=== PATIENT | female | born 1935 | race Caucasian/White ===

== ENCOUNTER 2016-05-14 07:40 | Inpatient (IN) | payer OTHER, BC ==
[~2016-05-14] VITALS: Ht 162.6 cm; Wt 72.8 kg
[~2016-05-14 07:40] MED LIST: COEN1CAP28 PO; FERR1TAB62 PO; HALO1TAB PO; HLD1 PO; LPR25 PO; MTR500 PO
--- NOTE | 2016-05-14 08:10 | EMERGENCY ROOM VISIT NOTE ---
History Report prepared by Savita: Velvet Hurst Under the Supervision of: Dr. Vern Naik M.D. First contact with patient: 07:43 Stated Complaint: CONFUSION History of Present Illness The patient is a 80 year old female who presents to the Emergency Room with complaints of persistent, worsening confusion that began prior to arrival. Per the patient's daughter the patient has a history of dementia. She notes that the patient was evaluated in the emergency department one month ago which revealed a bladder stone that is 2 inches in size. The patient's daughter notes that the patient had a scope that revealed that her uterus is dropped. She states that the patient is scheduled to have the stone blasted on the 04 of June, because urology believes that the stone is the likely cause of her persistent UTIs. The patient's daughter notes that the patient is increasingly weak and confused today. She states that last evening the patient fell. The patient's daughter notes that the patient is on aspirin for a valve replacement and additionally notes a history of cancer. Source of History: patient, family (daughter) Onset: prior to arrival Position: other (global) Quality: other (confusion) Timing: worsening, other (persistent) Associated Symptoms: + weakness Review of Systems See HPI for pertinent positives & negatives. A total of 10 systems reviewed and were otherwise negative. Past Medical & Surgical Medical Problems: (1) Anxiety (2) Aortic stenosis (3) blood clots (4) Confusion (5) CVA (6) Depressive disorder, not elsewhere classified (7) Diabetes (8) Heart disease (9) History of - tubal ligation (10) Hypertension (11) Kidney stone (12) stomach problems (13) Stroke (14) Thumb laceration (15) Weakness Surgical Problems: (1) H/O: hysterectomy Family History Diabetes mellitus FH: heart disease Hypertension Social History Smoking Status: Never Smoker Alcohol Use: none Marital Status: Housing Status: lives with family Occupation Status: retired Current/Historical Medications Scheduled Aspirin (Aspirin Ec), 81 MG PO QAM Atorvastatin (Lipitor), 10 MG PO QPM Cholecalciferol (Vitamin D), 1 TAB PO QAM Coenzyme Q10 (Ubidecarenone) (Co Q10), 1 CAP PO QAM Ferrous Sulfate (Ferrous Sulfate), 325 MG PO DAILY Haloperidol (Haloperidol), 1 MG PO QAM Haloperidol (Haloperidol), 0.5 MG PO HS Haloperidol (Haloperidol), 0.25 MG PO UD Magnesium Oxide (Mag-Ox), 400 MG PO QPM Metoprolol Tartrate (Lopressor), 25 MG PO BID Metronidazole (Metronidazole), 500 MG PO TID Miscellaneous Medications Nystatin (Topical) (Nystatin) Allergies Coded Allergies: Enalapril (Unverified Allergy, Unknown, Unknown, 05/14/16) Escitalopram (Unverified Adverse Reaction, Unknown, Hallucinations, ) Physical Exam Vital Signs Date Time Temp Pulse Resp B/P Pulse Ox O2 Delivery O2 Flow Rate FiO2 05/14/16 09:20 93 Room Air 05/14/16 09:05 85 18 146/96 93 Room Air 05/14/16 07:45 95 Room Air 05/14/16 07:45 36.6 93 20 150/74 95 Room Air Physical Exam GENERAL: Patient is mumbling about her shoes, does follow commands. HEAD: Normocephalic atraumatic EYES: Ocular movements intact pupils equal and react to light OROPHARYNX mucous membranes are moist no exudates present no erythema or edema present NECK: Supple no nuchal rigidity CHEST: Good equal expansion LUNGS: Clear and equal to auscultation CARDIAC: Grade 2/6 systolic murmur. ABDOMEN: Soft nontender no guarding BACK: No CVA tenderness EXTREMITIES: No pain upon palpation normal muscle strength in all groups no clubbing cyanosis or edema NEURO: Patient is following commands is answering questions appropriately. Alert and oriented x3 Cranial Nerves 2-12 grossly intact Medical Decision & Procedures ER Provider Diagnostic Interpretation: X-ray results as stated below per my interpretation and radiologist interpretation. Other radiology results as stated below per my review and radiologist interpretation: CT SCAN OF THE BRAIN WITHOUT IV CONTRAST CLINICAL HISTORY: Change in mental status. COMPARISON STUDY: CT of the brain dated 04/20/2016. TECHNIQUE: Unenhanced axial CT scan of the brain is performed from the vertex to the skull base. CT DOSE: 537.48 mGy.cm FINDINGS: Brain parenchyma: There are age-related involutional changes noting moderate subcortical and periventricular microangiopathic change. There is a large focus of right temporooccipital encephalomalacia, as well as smaller foci of left temporal and high right parietal encephalomalacia consistent with remote infarcts. A chronic infarct is noted in the right thalamus. There is no hemorrhage, mass effect, or evidence of acute territorial ischemia by CT criteria. Huynh-white matter is preserved. No extra-axial fluid collection is seen. Ventricles, sulci, cisterns: Prominent secondary to involutional change. Intracranial vasculature: There is atherosclerotic calcification of the cavernous carotid and vertebral arteries. Calvarium: Unremarkable. Sinuses and mastoids: There is trace mucosal thickening in the left maxillary antrum. The remaining visualized paranasal sinuses are clear. The mastoid air cells are well pneumatized. Orbits: The bony orbits are grossly intact. There are bilateral ocular lens implants. IMPRESSION: 1. There is no hemorrhage, mass effect, or evidence of acute territorial ischemia by CT criteria. 2. Senescent changes and remote infarcts as above, similar in appearance to the 04/20/2016 examination. Electronically signed by: Bladimir Green M.D. 05/14/2016 8:28 AM CHEST ONE VIEW PORTABLE HISTORY: Generalized weakness. COMPARISON: Chest 04/20/2016. FINDINGS: There are poststernotomy changes and a cardiac valve prosthesis. There are low lung volumes. The heart remains mildly enlarged. No new focal lung consolidations. No evidence for pulmonary edema. No pleural effusions. No pneumothorax. Bilateral hilar prominence persists. IMPRESSION: No significant change compared to the prior study. No acute process. Stable cardiomegaly. Electronically signed by: Madan Ortiz M.D. 05/14/2016 8:10 AM Laboratory Results 05/14/16 08:11 Red Blood Count 4.62, Mean Corpuscular Volume 87.9, Mean Corpuscular Hemoglobin 28.8, Mean Corpuscular Hemoglobin Concent 32.8, Mean Platelet Volume 10.4, Neutrophils (%) (Auto) 70.3, Lymphocytes (%) (Auto) 20.6, Monocytes (%) (Auto) 7.6, Eosinophils (%) (Auto) 1.0, Basophils (%) (Auto) 0.3, Neutrophils # (Auto) 4.07, Lymphocytes # (Auto) 1.19, Monocytes # (Auto) 0.44, Eosinophils # (Auto) 0.06, Basophils # (Auto) 0.02 05/14/16 08:11 Test 05/14/16 07:55 05/14/16 08:10 05/14/16 08:11 05/14/16 08:17 Urine Color DK YELLOW Urine Appearance CLEAR (CLEAR) Urine pH 5.5 (4.5-7.5) Urine Specific [place] 1.023 (1.000-1.030) Urine Protein TRACE (NEG) Urine Glucose (UA) NEG (NEG) Urine Ketones NEG (NEG) Urine Occult Blood NEG (NEG) Urine Nitrite NEG (NEG) Urine Bilirubin NEG (NEG) Urine Urobilinogen NEG (NEG) Urine Leukocyte Esterase NEG (NEG) Urine WBC (Auto) 0 /hpf (0-5) Urine RBC (Auto) 0-4 /hpf (0-4) Urine Hyaline Casts (Auto) 0 /lpf (0-5) Urine Epithelial Cells (Auto) 20-30 /lpf (0-5) Urine Bacteria (Auto) NEG (NEG) Bedside Glucose 181 mg/dl (70-90) White Blood Count 5.79 K/uL (4.8-10.8) Red Blood Count 4.62 M/uL (4.2-5.4) Hemoglobin 13.3 g/dL (12.0-16.0) Hematocrit 40.6 % (37-47) Mean Corpuscular Volume 87.9 fL (80-100) Mean Corpuscular Hemoglobin 28.8 pg (25-34) Mean Corpuscular Hemoglobin Concent 32.8 g/dl (32-36) Platelet Count 130 K/uL (130-400) Mean Platelet Volume 10.4 fL (7.4-10.4) Neutrophils (%) (Auto) 70.3 % Lymphocytes (%) (Auto) 20.6 % Monocytes (%) (Auto) 7.6 % Eosinophils (%) (Auto) 1.0 % Basophils (%) (Auto) 0.3 % Neutrophils # (Auto) 4.07 K/uL (1.4-6.5) Lymphocytes # (Auto) 1.19 K/uL (1.2-3.4) Monocytes # (Auto) 0.44 K/uL (0.11-0.59) Eosinophils # (Auto) 0.06 K/uL (0-0.5) Basophils # (Auto) 0.02 K/uL (0-0.2) RDW Standard Deviation 44.4 fL (36.4-46.3) RDW Coefficient of Variation 13.7 % (11.5-14.5) Immature Granulocyte % (Auto) 0.2 % Immature Granulocyte # (Auto) 0.01 K/uL (0.00-0.02) Anion Gap 9.0 mmol/L (3-11) Est Creatinine Clear Calc Drug Dose 40.5 ml/min Estimated GFR () 55.3 Estimated GFR (Non- 47.7 BUN/Creatinine Ratio 22.9 (10-20) Calcium Level 9.1 mg/dl (8.5-10.1) Total Bilirubin 0.5 mg/dl (0.2-1) Direct Bilirubin 0.2 mg/dl (0-0.2) Aspartate Amino Transf (AST/SGOT) 24 U/L (15-37) Alanine Aminotransferase (ALT/SGPT) 20 U/L (12-78) Alkaline Phosphatase 75 U/L (45-117) Total Creatine Kinase 219 U/L (26-192) Creatine Kinase MB 5.8 ng/ml (0.5-3.6) Creatine Kinase MB Ratio 2.6 (0-3.0) Troponin I 0.083 ng/ml (0-0.045) Total Protein 6.8 gm/dl (6.4-8.2) Albumin 3.4 gm/dl (3.4-5.0) Thyroid Stimulating Hormone (TSH) 1.410 uIu/ml (0.300-4.500) Influenza Type A (RT-PCR) Neg for Influ A (NEG) Influenza Type B (RT-PCR) Neg for Influ B (NEG) Labs reviewed by ED physician. Medications Administered Medications (Trade) Dose Ordered Sig/Shaggy Route Start Time Stop Time Status Last Admin Dose Admin Sodium Chloride (Nss 500ml) 500 ml @ 999 mls/hr Q31M STAT IV 05/14/16 08:57 05/14/16 09:27 DC 05/14/16 08:57 999 MLS/HR ECG Indication: other (confusion) Rate (beats per minute): 100 Rhythm: normal sinus Findings: no acute ischemic change, no ectopy, other (left ventricular hypertrophy) ED Course 0757: Past medical records reviewed. The patient was evaluated in room A12. A complete history and physical examination was performed. 0857: Ordered Sodium Chloride 500 ml @ 999 mls/hr IV. 0905: I reevaluated the patient and she is resting comfortably. I discussed the exam findings with her daughter and I discussed the treatment plan with her. She verbalized complete understanding and agreement. The patient will be evaluated for further treatment. 908: I discussed the patients case with PEPE Gomez. He is going to evaluate the patient for further treatment. Medical Decision Differential diagnosis: Etiologies such as metabolic, infection, hypo/hyperglycemia, electrolyte abnormalities, cardiac sources, intracerebral event, toxicologic, neurologic, as well as others were entertained. This is a 80-year-old female who presents emergency department complaining of altered mental status. When questioned the patient only speaks about her shoes. Going to the daughter that the patient is not at her baseline. She does have slight elevations in his CK-MB and troponin fraction. She has a clear chest x-ray and a normal urine as well as a normal CAT scan of the head. Based on these findings as well as the patient's confusion I did discuss the case with the hospitalist service who agreed to admit the patient. Patient and family were in agreement with the treatment plan. Consults Time Called: 904 Consulting Physician: PEPE Gomez Returned Call: 908 I discussed the patients case with PEPE Gomez. He is going to evaluate the patient for further treatment. Impression Primary Impression: Altered mental status Additional Impression: Elevated troponin Scribe Attestation The scribe's documentation has been prepared under my direction and personally reviewed by me in its entirety. I confirm that the note above accurately reflects all work, treatment, procedures, and medical decision making performed by me. Departure Information Dispostion Being Evaluated By Hospitalist Referrals RV. Orourke MD (PCP)
[2016-05-14 08:26] LABS: BASO % 0.3 %; BASO ABS # 0.02 K/uL (0-0.2); COMPLETE YES; HEMATOCRIT 40.6 % (37-47); IG% 0.2 %; LYMPH % 20.6 %; LYMPH ABS # 1.19 K/uL (1.2-3.4); MEAN CELL VOLUME 87.9 fL (80-100); MEAN CORPUSCULAR HEMOGLOBIN 28.8 pg (25-34); MEAN CORPUSCULAR HGB CONC 32.8 g/dl (32-36); MEAN PLATELET VOLUME 10.4 fL (7.4-10.4); MONO % 7.6 %; NEUT % 70.3 %; PLATELET COUNT 130 K/uL (130-400); RED BLOOD COUNT 4.62 M/uL (4.2-5.4); WHITE BLOOD COUNT 5.79 K/uL (4.8-10.8)
--- NOTE | 2016-05-14 08:30 | DIAGNOSTIC IMAGING REPORT ---
CT SCAN OF THE BRAIN WITHOUT IV CONTRAST CLINICAL HISTORY: Change in mental status. COMPARISON STUDY: CT of the brain dated 04/20/2016. TECHNIQUE: Unenhanced axial CT scan of the brain is performed from the vertex to the skull base. CT DOSE: 537.48 mGy.cm FINDINGS: Brain parenchyma: There are age-related involutional changes noting moderate subcortical and periventricular microangiopathic change. There is a large focus of right temporooccipital encephalomalacia, as well as smaller foci of left temporal and high right parietal encephalomalacia consistent with remote infarcts. A chronic infarct is noted in the right thalamus. There is no hemorrhage, mass effect, or evidence of acute territorial ischemia by CT criteria. Huynh-white matter is preserved. No extra-axial fluid collection is seen. Ventricles, sulci, cisterns: Prominent secondary to involutional change. Intracranial vasculature: There is atherosclerotic calcification of the cavernous carotid and vertebral arteries. Calvarium: Unremarkable. Sinuses and mastoids: There is trace mucosal thickening in the left maxillary antrum. The remaining visualized paranasal sinuses are clear. The mastoid air cells are well pneumatized. Orbits: The bony orbits are grossly intact. There are bilateral ocular lens implants. IMPRESSION: 1. There is no hemorrhage, mass effect, or evidence of acute territorial ischemia by CT criteria. 2. Senescent changes and remote infarcts as above, similar in appearance to the 04/20/2016 examination. Electronically signed by: Bladimir Green M.D. 05/14/2016 8:28 AM
[2016-05-14 08:31] LABS: URINE APPEARANCE CLEAR (CLEAR); URINE BILIRUBIN NEG (NEG); URINE COLOR DK YELLOW; URINE EPITHELIAL CELL AUTO 20-30 /lpf (0-5); URINE NITRITE NEG (NEG); URINE PH 5.5 (4.5-7.5); URINE SPECIFIC GRAVITY 1.023 (1.000-1.030); UROBILINOGEN NEG (NEG); ZZURINE CULT IF INDIC CATH NO
[2016-05-14 08:34] LABS: MANUAL MICROSCOPIC REQUIRED? NO; REVIEW REQ? NO
[2016-05-14 08:45] LABS: BUN/CREATININE RATIO 22.9 (10-20); CALCIUM 9.1 mg/dl (8.5-10.1); CREATININE 1.1 mg/dl (0.60-1.20); POTASSIUM 3.9 mmol/L (3.5-5.1)
[2016-05-14] MEDS ORDERED: HALO1TAB PO (08:49)
[2016-05-14] MEDS ORDERED: NYST1POW7 (08:49)
[2016-05-14] MEDS ORDERED: SODIUM CHLORIDE 0.9% 500ML 500 ML IV STA (08:57)
[2016-05-14 09:00] LABS: CKMB/CK RATIO 2.6 (0-3.0); THYROID STIMULATING HORMONE 1.41 uIu/ml (0.300-4.500)
[2016-05-14 09:20] VITALS: O2SAT 93; Ht 162.6 cm; Wt 72.8 kg
[2016-05-14] MEDS ORDERED: ONDANSETRON INJ 2 MG/ML 2 ML VIAL IV PRN (09:45)
[2016-05-14] MEDS ORDERED: NITROGLYCERIN 0.4 MG SL PER TAB CHARGE SL PRN (09:45)
[2016-05-14] MEDS ORDERED: MAGNESIUM HYDROXIDE SUSP 30 ML UDC PO PRN (09:45)
[2016-05-14] MEDS ORDERED: POLYETHYLENE (MIRALAX) 17 GM PACK PO PRN (09:45)
[2016-05-14] MEDS ORDERED: ALUMINUM/MAGNESIUM/SIMETH (MAALOX MAX) 30 ML UDC PO PRN (09:45)
--- NOTE | 2016-05-14 10:28 | History and Physical ---
History & Physical Date & Time of Service: May 14, 2016 at 10:02 Chief Complaint: Confusion Primary Care Physician: RV. Orourke MD History of Present Illness Source: patient, family Patient is a pleasant 80 y/o female, with PMHx of CVA, aortic stenosis, heart disease, HTN, hyperlipidemia, anemia, hypomagnesemia, dementia, blood clots, and anxiety/depression, who presented to the ED because of confusion and a fall. History came from daughter due to patient's mental status. Per daughter, her sister was getting the patient out of bed last night and she had a fall. She denies any injuries or LOC. Daughter then called EMS because she has a bad back and could not lift the patient back up. This morning patient became increasingly confused. Patient was admitted on 04/20/16 because of confusion. At that time, she was found to have a UTI and c.diff. Additionally, her Remeron was discontinued because it was thought to be adding to the confusion. Per daughter, patient is to have a 2 inch bladder stone blasted on June 04. ROS not obtained due to patient's status. Past Medical/Surgical History Medical Problems: (1) Anxiety Status: Chronic (2) Aortic stenosis Status: Chronic (3) blood clots Status: Chronic (4) CVA Status: Resolved (5) Diabetes Status: Chronic (6) Heart disease Status: Chronic (7) History of - tubal ligation Status: Resolved (8) Hypertension Status: Chronic (9) Kidney stone Status: Chronic (10) stomach problems Status: Chronic (11) Stroke Status: Chronic (12) Thumb laceration Status: Resolved Surgical Problems: (1) H/O: hysterectomy Status: Resolved Family History Diabetes mellitus FH: heart disease Hypertension Social History Smoking Status: Never Smoker Marital Status: Housing status: lives with family Occupational Status: retired Immunizations History of Influenza Vaccine: Yes Influenza Vaccine Date: Apr 01, 2011 History of Tetanus Vaccine?: utd Tetanus Immunization Date: Mar 30, 2009 History of Pneumococcal: Yes Pneumococcal Date: Apr 02, 2011 History of Hepatitis B Vaccine: Unknown Multi-Drug Resistant Organisms History of MDRO: No Allergies Coded Allergies: Enalapril (Unverified Allergy, Unknown, Unknown, 05/14/16) Escitalopram (Unverified Adverse Reaction, Unknown, Hallucinations, ) Home Medications Scheduled Aspirin (Aspirin Ec), 81 MG PO QAM Atorvastatin (Lipitor), 10 MG PO QPM Cholecalciferol (Vitamin D), 1 TAB PO QAM Coenzyme Q10 (Ubidecarenone) (Co Q10), 1 CAP PO QAM Ferrous Sulfate (Ferrous Sulfate), 325 MG PO DAILY Haloperidol (Haloperidol), 1 MG PO QAM Haloperidol (Haloperidol), 0.5 MG PO HS Haloperidol (Haloperidol), 0.25 MG PO UD Magnesium Oxide (Mag-Ox), 400 MG PO QPM Metoprolol Tartrate (Lopressor), 25 MG PO BID Metronidazole (Metronidazole), 500 MG PO TID Miscellaneous Medications Nystatin (Topical) (Nystatin) Review of Systems limited due to patient dementia, mainly obtained from her daughter, ER records and PA Physical Exam Vital Signs Date Time Temp Pulse Resp B/P Pulse Ox O2 Delivery O2 Flow Rate FiO2 05/14/16 09:20 93 Room Air 05/14/16 09:05 85 18 146/96 93 Room Air 05/14/16 07:45 95 Room Air 05/14/16 07:45 36.6 93 20 150/74 95 Room Air General Appearance: no apparent distress Head: normocephalic, atraumatic Eyes: normal inspection, PERRL ENT: hearing grossly normal Neck: supple Respiratory/Chest: lungs clear, no respiratory distress, no accessory muscle use Cardiovascular: regular rate, rhythm, no murmur, normal peripheral pulses, + systolic murmur Abdomen/GI: normal bowel sounds, non tender, soft Back: normal inspection Extremities/Musculoskelatal: no calf tenderness, no pedal edema Neurologic/Psych: alert, + disoriented Skin: normal color, warm/dry, no rash Diagnostics Laboratory Results Results Past 24 Hours Test 05/14/16 07:55 05/14/16 08:10 05/14/16 08:11 05/14/16 08:17 Range/Units Urine Color DK YELLOW Urine Appearance CLEAR CLEAR Urine pH 5.5 4.5-7.5 Urine Specific [place] 1.023 1.000-1.030 Urine Protein TRACE NEG Urine Glucose (UA) NEG NEG Urine Ketones NEG NEG Urine Occult Blood NEG NEG Urine Nitrite NEG NEG Urine Bilirubin NEG NEG Urine Urobilinogen NEG NEG Urine Leukocyte Esterase NEG NEG Urine WBC (Auto) 0 0-5 /hpf Urine RBC (Auto) 0-4 0-4 /hpf Urine Hyaline Casts (Auto) 0 0-5 /lpf Urine Epithelial Cells (Auto) 20-30 0-5 /lpf Urine Bacteria (Auto) NEG NEG Bedside Glucose 181 70-90 mg/dl White Blood Count 5.79 4.8-10.8 K/uL Red Blood Count 4.62 4.2-5.4 M/uL Hemoglobin 13.3 12.0-16.0 g/dL Hematocrit 40.6 37-47 % Mean Corpuscular Volume 87.9 80-100 fL Mean Corpuscular Hemoglobin 28.8 25-34 pg Mean Corpuscular Hemoglobin Concent 32.8 32-36 g/dl Platelet Count 130 130-400 K/uL Mean Platelet Volume 10.4 7.4-10.4 fL Neutrophils (%) (Auto) 70.3 % Lymphocytes (%) (Auto) 20.6 % Monocytes (%) (Auto) 7.6 % Eosinophils (%) (Auto) 1.0 % Basophils (%) (Auto) 0.3 % Neutrophils # (Auto) 4.07 1.4-6.5 K/uL Lymphocytes # (Auto) 1.19 1.2-3.4 K/uL Monocytes # (Auto) 0.44 0.11-0.59 K/uL Eosinophils # (Auto) 0.06 0-0.5 K/uL Basophils # (Auto) 0.02 0-0.2 K/uL RDW Standard Deviation 44.4 36.4-46.3 fL RDW Coefficient of Variation 13.7 11.5-14.5 % Immature Granulocyte % (Auto) 0.2 % Immature Granulocyte # (Auto) 0.01 0.00-0.02 K/uL Sodium Level 142 136-145 mmol/L Potassium Level 3.9 3.5-5.1 mmol/L Chloride Level 106 98-107 mmol/L Carbon Dioxide Level 27 21-32 mmol/L Anion Gap 9.0 3-11 mmol/L Blood Urea Nitrogen 25 7-18 mg/dl Creatinine 1.10 0.60-1.20 mg/dl Est Creatinine Clear Calc Drug Dose 40.5 ml/min Estimated GFR () 55.3 Estimated GFR (Non- 47.7 BUN/Creatinine Ratio 22.9 10-20 Random Glucose 190 70-99 mg/dl Calcium Level 9.1 8.5-10.1 mg/dl Total Bilirubin 0.5 0.2-1 mg/dl Direct Bilirubin 0.2 0-0.2 mg/dl Aspartate Amino Transf (AST/SGOT) 24 15-37 U/L Alanine Aminotransferase (ALT/SGPT) 20 12-78 U/L Alkaline Phosphatase 75 45-117 U/L Total Creatine Kinase 219 26-192 U/L Creatine Kinase MB 5.8 0.5-3.6 ng/ml Creatine Kinase MB Ratio 2.6 0-3.0 Troponin I 0.083 0-0.045 ng/ml Total Protein 6.8 6.4-8.2 gm/dl Albumin 3.4 3.4-5.0 gm/dl Thyroid Stimulating Hormone (TSH) 1.410 0.300-4.500 uIu/ml Microbiology Results 05/14/16 Blood Culture, Received Pending 05/14/16 Blood Culture, Received Pending Diagnostic Radiology CT SCAN OF THE BRAIN WITHOUT IV CONTRAST CLINICAL HISTORY: Change in mental status. COMPARISON STUDY: CT of the brain dated 04/20/2016. TECHNIQUE: Unenhanced axial CT scan of the brain is performed from the vertex to the skull base. CT DOSE: 537.48 mGy.cm FINDINGS: Brain parenchyma: There are age-related involutional changes noting moderate subcortical and periventricular microangiopathic change. There is a large focus of right temporooccipital encephalomalacia, as well as smaller foci of left temporal and high right parietal encephalomalacia consistent with remote infarcts. A chronic infarct is noted in the right thalamus. There is no hemorrhage, mass effect, or evidence of acute territorial ischemia by CT criteria. Huynh-white matter is preserved. No extra-axial fluid collection is seen. Ventricles, sulci, cisterns: Prominent secondary to involutional change. Intracranial vasculature: There is atherosclerotic calcification of the cavernous carotid and vertebral arteries. Calvarium: Unremarkable. Sinuses and mastoids: There is trace mucosal thickening in the left maxillary antrum. The remaining visualized paranasal sinuses are clear. The mastoid air cells are well pneumatized. Orbits: The bony orbits are grossly intact. There are bilateral ocular lens implants. IMPRESSION: 1. There is no hemorrhage, mass effect, or evidence of acute territorial ischemia by CT criteria. 2. Senescent changes and remote infarcts as above, similar in appearance to the 04/20/2016 examination. Electronically signed by: Bladimir Green M.D. 05/14/2016 8:28 AM The status of this report is Signed. Draft = Not yet reviewed or approved by Radiologist. Signed = Reviewed and approved by Radiologist. CHEST ONE VIEW PORTABLE HISTORY: Generalized weakness. COMPARISON: Chest 04/20/2016. FINDINGS: There are poststernotomy changes and a cardiac valve prosthesis. There are low lung volumes. The heart remains mildly enlarged. No new focal lung consolidations. No evidence for pulmonary edema. No pleural effusions. No pneumothorax. Bilateral hilar prominence persists. IMPRESSION: No significant change compared to the prior study. No acute process. Stable cardiomegaly. Electronically signed by: Madan Ortiz M.D. 05/14/2016 8:10 AM The status of this report is Signed. Draft = Not yet reviewed or approved by Radiologist. Signed = Reviewed and approved by Radiologist. Impression Assessment and Plan 80 y/o female, with PMHx of CVA, aortic stenosis, heart disease, HTN, hyperlipidemia, anemia, hypomagnesemia, dementia, blood clots, and anxiety/ depression, who presented to the ED because of confusion and a fall. CXR, head CT, EKG, and U/A unremarkable. Confusion: -Admit tele -Trend cardiac enzymes x3 --Trop of 0.083 at admission -Blood cultures pending -IV NSS @ 100 ml/hr -Follow CBC and PRP During interview, patient appeared confused. However, unsure of baseline due to dementia. Heart Disease/ HTN: -Continue Metoprolol 25 mg PO BID Hyperlipidemia: -Continue Atorvastatin 20 mg PO daily Hypomagnesemia: -Continue Mag-Ox 400 mg PO daily -Check mag level Anemia: -Continue Ferrous Sulfate 325 mg PO daily Dementia, Anxiety/Depression: -Continue Haloperidol 1 mg PO morning, 0.25 mg PO afternoon, 0.5 mg PO HS GI Prophylaxis: -Maalox PRN -IV Zofran PRN -Colace and/or Milk of Mag PRN DVT prophylaxis: -Heparin 5000 units SQ q12 hrs -WILDER and SCDs Code Status: -LEVEL V, DNR Level of Care Telemetry Advanced Directives Existing Advance Directive: Yes Existing Living Will: Yes Existing Power of Magnaflux Operator: Yes (ANI) Resuscitation Status DO NOT RESUSCITATE VTE Prophylaxis VTE Risk Assessment Done? Y/N: Yes Risk Level: Moderate Given or contraindicated: Unfractionated heparin SQ, T.E.D. Stockings, SCD's Reviewed: Pt Seen/Exam by Me, EMS, RN Notes, HO Notes, Prior Records, Labs, RAD , EKG History 80 y/o female, with PMHx of CVA, aortic stenosis, heart disease, HTN, hyperlipidemia, anemia, hypomagnesemia, dementia, blood clots, and anxiety/ depression, who presented to the ED because of confusion and a fall. CXR, head CT, EKG, and U/A unremarkable. ROS, PMH, FAM, SOC HX as per PA note General Appearance: no apparent distress Eye Exam: bilateral eye normal inspection Ears, Nose, Throat: hearing grossly normal Neck: non-tender Respiratory: chest non-tender Cardiovascular: no edema Gastrointestinal: normal bowel sounds Extremities: non-tender Neurologic/Psychiatric: disoriented x 3 Skin Characteristics: warm/dry Assessment/Plan 80 y/o female, with PMHx of CVA, aortic stenosis, heart disease, HTN, hyperlipidemia, anemia, hypomagnesemia, dementia, blood clots, and anxiety/ depression, who presented to the ED because of confusion and a fall. CXR, head CT, EKG, and U/A unremarkable. Confusion/Delirium in the setting of dementia: DDx: Drugs, infection, CVA, metabolic/electrolytes changes, r/o ACS with CP yesterday agree with tele Troponin is elevated at 0.083 at admission Trend cardiac enzymes x3 cont IVF @ 100 ml/hr check bl cx Follow CBC and PRP consult psychiatry for medications adjustments CT head is normal CXR is negative for PNA Heart Disease/ HTN: Continue Metoprolol 25 mg PO BID Hyperlipidemia: Continue Atorvastatin 20 mg PO daily Hypomagnesemia: Continue Mag-Ox 400 mg PO daily Anemia: Continue Ferrous Sulfate 325 mg PO daily Dementia, Anxiety/Depression: Continue Haloperidol 1 mg PO morning, 0.25 mg PO afternoon, 0.5 mg PO HS DVT prophylaxis: Heparin 5000 units SQ q12 hrs WILDER and SCDs Code Status: DNR case discussed with verónica FISHER time spent 45 min
[2016-05-14 10:59] LABS: INFLUENZA A PCR Neg for Influ A (NEG); INFLUENZA B PCR Neg for Influ B (NEG)
[2016-05-14 11:00] VITALS: BP 173/94; PULSE 92; TEMP 37.1; O2SAT 95
[2016-05-14] MEDS: SODIUM CHLORIDE 0.9% 1000ML 1,000 ML IV SCH ×2 (11:55→21:11)
[2016-05-14] MEDS: HydrALAZINE HCL 20 MG/ML VIAL IV. PRN (11:55)
[2016-05-14] MEDS: HALOPERIDOL 0.5 MG TAB PO SCH (12:32)
[2016-05-14] MEDS ORDERED: HALOPERIDOL 0.5 MG TAB PO SCH ×2 (14:00→21:00)
[2016-05-14] MEDS ORDERED: SODIUM CHLORIDE 0.65% NA SOLN 45 ML (OCEAN) ONE (15:31)
[2016-05-14 15:38] VITALS: BP 135/79; PULSE 100; TEMP 36.5; O2SAT 96
[2016-05-14] MEDS ORDERED: NURSING DECISION MEDICATION ORDER SCH (15:45)
[2016-05-14] MEDS ORDERED: MICONAZOLE NITRATE POWDER 43 GM EXT PRN (16:00)
[2016-05-14] MEDS ORDERED: SODIUM CHLORIDE 0.65% NA SOLN 45 ML (OCEAN) PRN (16:00)
[2016-05-14] MEDS ORDERED: PERFLUTREN LIPID MICROSPHERE (DEFINITY) IV ONE (16:13)
--- NOTE | 2016-05-14 17:31 | ECHOCARDIOGRAM REPORT ---
*NOTICE TO RECEIVING LIBERTARIAN AGENCY This information is strictly Confidential and protected under [place] law. [place] law prohibits you from making any further disclosure of this information unless further disclosure is expressly permitted by the written consent of the person to whom it pertains or is authorized by law. A general authorization for the release of medical or other information is not sufficient for this purpose. Hospital accepts no responsibility if the information is made available to any other person, INCLUDING THE PATIENT. Interpretation Summary * Name: RADHA FARRELL Study Date: 05/14/2016 03:51 PM BP: 173/94 mmHg * Patient Location: [id number].2E\[id number]\E208\S\1 HR: 92 * : 1935 (M/d/yyy) Gender: Female Height: 64 in * Age: 80 yrs Ethnicity: CA Weight: 159 lb * Ordering Physician: Colin James * Performed By: Rosita Viveros * * Reason For Study: CHEST PAIN * BSA: 1.8 m2 * -- Conclusions -- * 1. Normal LV size, asymmetric basal septal hypertrophy. * 2. Normal LV systolic function. LVEF 50-55%. Septal motion consistent with post-operative state. Dyskinetic apical lateral wall. * 3. RV not well visualized. Mild RV dysfunction. * 4. Bioprosthetic Aortic valve well seated. Normal transvalvular gradient. * 5. Grade I diastolic dysfunction. * 6. Compared with prior [facility] study report on 09/03/2014: Bioprosthetic aortic valve is new. Procedure Details * A complete two-dimensional transthoracic echocardiogram was performed (2D, M-mode, Doppler and color flow Doppler). * The study was technically difficult. * There were technical limitations due to patient'spoor positioning * A contrast injection of Definity was performed to improve assessment of LV function. * Contrast was injected into an intravenous site in the left arm. * One vial of Definity ultrasound contrast was diluted in normal saline to a total volume of 10 ml. A total of '3' ml of solution was administered during imaging. * Lot # [id number] of Definity utilized for procedure. * Expiration date 10/31. Left Ventricle * The left ventricle is grossly normal size. * Proximal septal thickening is noted. * Ejection Fraction = 50-55%. * Septal motion is consistent with post-operative state. * Dyskinetic apical lateral segment on 4 chamber view with Definity. Right Ventricle * The right ventricle is not well visualized. * The right ventricular systolic function is reduced as assessed by tricuspid annular plane systolic excursion (TAPSE) (TAPSE <1.6 cm). * The right ventricular systolic function is mildly reduced. Atria * The left atrial size is normal. * Right atrium not well visualized. * There is no evidence of atrial septal defect, but resolution does not allow assessment for a patent foramen ovale. Mitral Valve * There is severe mitral annular calcification. * Calcified mitral apparatus. * There is no mitral valve stenosis. * Significant mitral regurgitation is absent. Tricuspid Valve * The tricuspid valve is not well visualized. * There is no tricuspid stenosis. * Significant tricuspid regurgitation is absent. Aortic Valve * There is a bioprosthetic aortic valve. * Bioprosthetic leaflets are not well visualized. * The gradient is normal for this prosthetic aortic valve. Pulmonic Valve * The pulmonic valve is not well seen, but is grossly normal. * There is no pulmonic valvular stenosis. * Trace pulmonic valvular regurgitation. Great Vessels * The aortic root and proximal ascending aorta are normal sized. Pericardium/Pleural * There is no pericardial effusion. Great Vessels * Normal inferior vena cava size and collapsability with sniff indicates a normal right atrial pressure of 3 mmHg Left Ventricular Diastolic Function * Grade I diastolic dysfunction, (abnormal relaxation pattern). MMode 2D Measurements and Calculations IVSd 1.3 cm IVSs 1.5 cm LVIDd 4.5 cm LVIDs 3.2 cm LVPWd 0.77 cm LVPWs 1.6 cm IVS/LVPW 1.7 FS 28.1 % EDV(Teich) 92.4 ml ESV(Teich) 42.0 ml EF(Teich) 54.5 % EDV(cubed) 91.0 ml ESV(cubed) 33.8 ml EF(cubed) 62.9 % % IVS thick 13.0 % % LVPW thick 101.5 % LV mass(C)d 164.0 grams LV mass(C)dI 92.5 grams/m\S\2 LV mass(C)s 179.7 grams LV mass(C)sI 101.3 grams/m\S\2 CO(Teich) 4.6 l/min CI(Teich) 2.6 l/min/m\S\2 SV(Teich) 50.4 ml SI(Teich) 28.4 ml/m\S\2 CO(cubed) 5.2 l/min CI(cubed) 2.9 l/min/m\S\2 SV(cubed) 57.2 ml SI(cubed) 32.2 ml/m\S\2 LA dimension 3.9 cm asc Aorta Diam 3.2 cm LVOT diam 2.2 cm LVOT area 3.9 cm\S\2 LVAd ap4 34.6 cm\S\2 LVLd ap4 9.2 cm EDV(MOD-sp4) 104.0 ml LVAs ap4 21.1 cm\S\2 LVLs ap4 8.0 cm ESV(MOD-sp4) 45.0 ml EF(MOD-sp4) 56.7 % LVAd ap2 26.8 cm\S\2 LVLd ap2 8.0 cm EDV(MOD-sp2) 73.0 ml LVAs ap2 17.1 cm\S\2 LVLs ap2 7.0 cm ESV(MOD-sp2) 34.0 ml EF(MOD-sp2) 53.4 % CO(MOD-sp4) 5.4 l/min CI(MOD-sp4) 3.0 l/min/m\S\2 SV(MOD-sp4) 59.0 ml SI(MOD-sp4) 33.3 ml/m\S\2 CO(MOD-sp2) 3.5 l/min CI(MOD-sp2) 2.0 l/min/m\S\2 SV(MOD-sp2) 39.0 ml SI(MOD-sp2) 22.0 ml/m\S\2 Doppler Measurements and Calculations MV E max lion 144.6 cm/sec MV dec time 0.12 sec Ao V2 max 238.9 cm/sec Ao max PG 23.0 mmHg Ao max PG (full) 17.8 mmHg Ao V2 mean 177.7 cm/sec Ao mean PG 14.6 mmHg Ao V2 VTI 44.4 cm TAO(V,A) 1.9 cm\S\2 TAO(V,D) 1.9 cm\S\2 LV V1 max PG 5.2 mmHg LV V1 max 114.0 cm/sec PA V2 max 65.2 cm/sec PA max PG 1.7 mmHg PI end-d lion 141.8 cm/sec
[2016-05-14 19:15] VITALS: BP 143/75; PULSE 96; TEMP 36.9; O2SAT 95
[2016-05-14] MEDS: ATORVASTATIN 10 MG TAB PO SCH (20:16)
[2016-05-14] MEDS: ACETAMINOPHEN 325 MG TAB PO PRN (20:18)
[2016-05-14] MEDS: METOPROLOL TARTRATE 25 MG TAB PO SCH (20:19)
[2016-05-14] MEDS: MAGNESIUM OXIDE 400 MG TAB PO SCH (20:19)
[2016-05-14] MEDS: HEPARIN SOD 5000 UNIT/0.5 ML CARP SQ SCH (20:20)
[2016-05-14 23:40] VITALS: BP 114/64; PULSE 77; TEMP 36.7; O2SAT 95
[2016-05-15] VITALS (7 sets, daily range): BP systolic 137–173; BP diastolic 69–83; PULSE 63–81; TEMP 36.3–37.2; O2SAT 95–97
[2016-05-15 06:03] LABS: HEMATOCRIT 36.4 % (37-47); MEAN CELL VOLUME 88.1 fL (80-100); MEAN CORPUSCULAR HEMOGLOBIN 28.8 pg (25-34); MEAN CORPUSCULAR HGB CONC 32.7 g/dl (32-36); MEAN PLATELET VOLUME 10.1 fL (7.4-10.4); PLATELET COUNT 114 K/uL (130-400); RED BLOOD COUNT 4.13 M/uL (4.2-5.4); WHITE BLOOD COUNT 5.58 K/uL (4.8-10.8)
[2016-05-15 06:36] LABS: BUN/CREATININE RATIO 29.8 (10-20); CALCIUM 8.6 mg/dl (8.5-10.1); CREATININE 0.89 mg/dl (0.60-1.20); MAGNESIUM 2.1 mg/dl (1.8-2.4)
--- NOTE | 2016-05-15 07:13 | Clinical Documentation Query ---
RUBEN Pardo : CLINICAL DOCUMENTATION QUERY Patient is a 80 year old female who presented with confusion after a fall. Patient had an admission earlier this month for confusion as well. Remeron was discontinued at this time as it was thought to be adding to the confusion. Chest radiograph, CT scan of the head, EKG, and UA unremarkable. Patient is afebrile. There is no leukocytosis on CBC. If clinically appropriate after study/other etiologies ruled out, please consider documentation as suggested below as this reflects a clinical diagnosis whereas "confusion" is simply a clinical sign and/or symptom. In your clinical opinion is this patient being managed for: ( X ) Progressive senile dementia ( ) Other explanation of clinical findings (Please Explain) ( ) Unable to determine (Please Define) ( ) Need to Discuss ( ) Not Agree The medical record reflects the following clinical findings, treatment, and risk factors. Clinical Indicators: As above Treatment: Chemistries, hematology, radiology, cultures Risk Factors: Underlying dementia, advancing age Please clarify and document your clinical opinion in the progress notes and discharge summary. Terms such as "probable", "suspected", "likely", "questionable", "possible", or "still to be ruled out" are acceptable. IF IN AGREEMENT, YOU MUST DOCUMENT ABOVE DIAGNOSTIC STATEMENT IN DAILY PROGRESS NOTES AND DISCHARGE SUMMARY. This document is not part of the patient's record. Thank You, Ruddy Hou RN [phone]
[2016-05-15] MEDS: SODIUM CHLORIDE 0.9% 1000ML 1,000 ML IV SCH ×2 (07:51→21:00)
[2016-05-15] MEDS: FERROUS SULFATE 325 MG TAB PO SCH (07:52)
[2016-05-15] MEDS: ASPIRIN 81 MG ECTAB PO SCH (07:52)
[2016-05-15] MEDS: METOPROLOL TARTRATE 25 MG TAB PO SCH ×2 (07:53→20:55)
[2016-05-15] MEDS: CHOLECALCIFEROL 1000 INTER.UNIT TAB PO SCH (07:54)
[2016-05-15] MEDS ORDERED: NON-FORMULARY MEDICATION (Coenzyme Q10 (Ubidecarenone) (Co Q10) 1 CAP) PO SCH (09:00)
[2016-05-15] MEDS ORDERED: HALOPERIDOL 1 MG TAB PO SCH ×4 (09:00→21:00)
[2016-05-15] MEDS: HEPARIN SOD 5000 UNIT/0.5 ML CARP SQ SCH ×2 (09:09→20:59)
--- NOTE | 2016-05-15 11:17 | Psychiatric Consultation ---
Consultation Identifying Data Ms. Easley is a 80 yo female who resides with her 2 daughters in [place]. Her son is POA. She was previously seen on consultation service 01/16/16 for AMS. At that time she had made statements about self harm and was combative at times with daughter (post stroke). History today is primarily obtained from daughter and patient is "finally" sleeping. Chief Complaint "We were hoping she could go to [facility]". History of Present Illness Patient has been struggling at home following her admission earlier this month for Cdiff and UTI. She became confused again and fell, even out of bed at home and also some unexplained bruising on her knees. One of her daughters sleeps downstairs with her while the other who as health issues and walks with a cane lives upstairs. She has been following with Dr. Scanlon at [facility] and was apparently started on Haldol for agitation. Daughter feels that evenings tend to be worse as far as irritability but denies self harm statements for months and denies combativeness. She has a alcantar that she rings if needs things at night, occasionally restless as no longer on "sleeping pill", believe she is referring to Klonopin which was tapered dur to paradoxical reaction/fall risk during January admit. She has been medication compliant. Restlessness includes fidget with her hair but not pulling it. Her family is reportedly concerned that Haldol is overmedicating her as appears intermittently sedated. They worry about their ability to maintain her at home. Hallucinations are denied. They state that she has had periods where wasn't particularly cooperative with in home PT/rehab as she remembers her having a hard time with them. Past Psychiatric History Current OP Treatment: psychiatrist (Ghislaine--Manoj Watt) prior trial of Lexapro by PCP, [place] no prior suicide attempts or inpatient hospitalizations, no access to weapons Past Medical/Surgical History Problem List: (1) CHF (congestive heart failure) (2) Anemia (3) GI bleed (4) Diabetes (5) Heart disease (6) Hypertension (7) Aortic stenosis (8) CVA (9) Kidney stone (10) H/O: hysterectomy Allergies Allergies: Coded Allergies: Enalapril (Unverified Allergy, Unknown, Unknown, 05/14/16) Escitalopram (Unverified Adverse Reaction, Unknown, Hallucinations, ) Home Medications Scheduled Aspirin (Aspirin Ec), 81 MG PO QAM Atorvastatin (Lipitor), 10 MG PO QPM Cholecalciferol (Vitamin D), 1 TAB PO QAM Coenzyme Q10 (Ubidecarenone) (Co Q10), 1 CAP PO QAM Ferrous Sulfate (Ferrous Sulfate), 325 MG PO DAILY Haloperidol (Haloperidol), 1 MG PO QAM Haloperidol (Haloperidol), 0.5 MG PO HS Haloperidol (Haloperidol), 0.25 MG PO UD Magnesium Oxide (Mag-Ox), 400 MG PO QPM Metoprolol Tartrate (Lopressor), 25 MG PO BID Metronidazole (Metronidazole), 500 MG PO TID Miscellaneous Medications Nystatin (Topical) (Nystatin) Family History Diabetes mellitus FH: heart disease Hypertension grandfather committed suicide Alcohol Use Alcohol Use In Past 12 Months: No Substance History denied Personal History Education: started high school (11th grade) 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 Relationship History: ( in 1996) Children: 3 (lives with her 2 daughters, son is POA) Legal History: none Abuse History: none Review of Systems patient is unable to complete Examination Vital Signs Vital Signs Past 12 Hours Date Time Temp Pulse Resp B/P Pulse Ox O2 Delivery O2 Flow Rate FiO2 05/15/16 10:35 36.5 67 20 137/69 97 Room Air 05/15/16 08:00 Room Air 05/15/16 07:46 37.1 70 20 158/80 97 Room Air 05/15/16 04:00 Room Air 05/15/16 03:20 37.2 81 18 152/83 96 Room Air 05/15/16 00:00 Room Air 05/14/16 23:40 36.7 77 16 114/64 95 Room Air Laboratory Results Last 24 Hours Test 05/14/16 12:02 05/14/16 16:00 05/14/16 16:35 05/15/16 00:00 Vitamin B12 Level 825 pg/mL Folate > 24.00 ng/mL Rapid Plasma Reagin NONREACTIVE Creatine Kinase MB Ratio Creatine Kinase MB 5.5 ng/ml Troponin I 0.087 ng/ml Test 05/15/16 00:25 05/15/16 05:32 Creatine Kinase MB 3.7 ng/ml Troponin I 0.069 ng/ml White Blood Count 5.58 K/uL Red Blood Count 4.13 M/uL Hemoglobin 11.9 g/dL Hematocrit 36.4 % Mean Corpuscular Volume 88.1 fL Mean Corpuscular Hemoglobin 28.8 pg Mean Corpuscular Hemoglobin Concent 32.7 g/dl RDW Standard Deviation 44.5 fL RDW Coefficient of Variation 13.8 % Platelet Count 114 K/uL Mean Platelet Volume 10.1 fL Sodium Level 144 mmol/L Potassium Level 4.0 mmol/L Chloride Level 109 mmol/L Carbon Dioxide Level 27 mmol/L Anion Gap 8.0 mmol/L Blood Urea Nitrogen 27 mg/dl Creatinine 0.89 mg/dl Est Creatinine Clear Calc Drug Dose 50.1 ml/min Estimated GFR () 71.4 Estimated GFR (Non- 61.6 BUN/Creatinine Ratio 29.8 Random Glucose 99 mg/dl Calcium Level 8.6 mg/dl Magnesium Level 2.1 mg/dl Mental Examination During interview pt is: other (sedated) Appearance: disheveled Eye contact is: poor Motor behavior is: no abnormal motor movements Speech: other (nonspontaneous) Affect: blunted Thought process: concrete Insight: poor Judgement: poor exam limited Impression / Recommendations Impression 80 yo female with increasing frequency of agitation/confusion post stroke related to 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 sedation from low dose Haldol which is being used for hx of irritability at home. Unclear if restlessness related to dementia vs side effect from Haldol. Recommendations (1) Altered mental status Ms. Easley has a history of disruptive behavior related to post stroke personality change/depression/dementia symptoms. She is currently being maintained on low dose Haldol. troponin elevations noted. Liaison to communicate with POA and obtain releases for [facility], doubt indication for inpatient [facility] psych admit as not threatening/aggressive and ongoing medical , likely needs PT higher level of nursing support (ie unable to be maintained currently at home). Son had previously wanted to avoid atypical antipsychotic due to risk fo in elderly dementia patients but may now prefer Seroquel 12.5 mg over Haldol.
[2016-05-15] MEDS: HALOPERIDOL 0.5 MG TAB PO SCH ×2 (11:51→20:54)
--- NOTE | 2016-05-15 12:16 | Hospitalist Progress Note ---
Hospitalist Progress Note Date of Service May 15, 2016. (Ingrid Israel, ELISE) 05/15/16 agree with PA note (Colin James MD) Subjective Pt evaluation today including: conversation w/ patient, physical exam, chart review, lab review, review of inpatient medication list Voiding: no voiding problems Patient appears very well today. She was up eating breakfast. She was oriented to self and place. Patient denies any fever, chills, sweats, lightheadedness, dizziness, vision changes, CP, palpitations, edema, SOB, wheezing, cough, abdominal pain, nausea, vomiting, diarrhea, urinary symptoms, melena, numbness/ tingling, weakness, muscle/joint pain, anxiety/depression, active bleeding, or new skin discoloration/changes. (nIgrid Israel, ELISE) Pt evaluation today including: conversation w/ patient, conversation w/ family , physical exam, chart review, review of studies, review of inpatient medication list confusion improved Constitutional: No fever Eyes: No worsening of vision ENT: No hearing loss Respiratory: No cough Cardiovascular: No chest pain Abdomen: No nausea Neurologic: No memory loss Psychiatric: No depression symptoms Endo: No fatigue (Colin James MD) Medications Current Inpatient Medications Medications (Trade) Dose Ordered Sig/Shaggy Route Start Time Stop Time Status Last Admin Dose Admin Acetaminophen (Tylenol Tab) 650 mg Q4H PRN PO 05/14/16 09:45 06/13/16 09:44 05/14/16 20:18 650 MG Al Hydrox/Mg Hydrox/Simethicone (Maalox Max Susp) 15 ml Q4H PRN PO 05/14/16 09:45 06/13/16 09:44 Magnesium Hydroxide (Milk Of Magnesia Susp) 30 ml Q12H PRN PO 05/14/16 09:45 06/13/16 09:44 Ondansetron HCl (Zofran Inj) 4 mg Q6H PRN IV 05/14/16 09:45 06/13/16 09:44 Nitroglycerin (Nitrostat Tab) 0.4 mg UD PRN SL 05/14/16 09:45 06/13/16 09:44 Polyethylene (Miralax Powder Packet) 17 gm DAILY PRN PO 05/14/16 09:45 06/13/16 09:44 Aspirin (Ecotrin Tab) 81 mg QAM PO 05/15/16 09:00 06/14/16 08:59 05/15/16 07:52 81 MG Atorvastatin Calcium (Lipitor Tab) 10 mg QPM PO 05/14/16 21:00 06/13/16 20:59 05/14/16 20:16 10 MG Magnesium Oxide (Mag-Ox Tab) 400 mg QPM PO 05/14/16 21:00 06/13/16 20:59 05/14/16 20:19 400 MG Metoprolol Tartrate (Lopressor Tab) 25 mg BID PO 05/14/16 21:00 06/13/16 20:59 05/15/16 07:53 25 MG Cholecalciferol (Vitamin D Tab) 2,000 inter.unit QAM PO 05/15/16 09:00 06/14/16 08:59 05/15/16 07:54 2,000 INTER.UNIT Ferrous Sulfate 325 mg 325 mg DAILY PO 05/15/16 09:00 06/14/16 08:59 05/15/16 07:52 325 MG Sodium Chloride (Nss 1000ml) 1,000 ml @ 100 mls/hr Q10H IV 05/14/16 11:30 06/13/16 11:29 05/15/16 07:51 100 MLS/HR Hydralazine HCl (HydrALAZINE INJ) 10 mg Q6 PRN IV. 05/14/16 09:45 06/13/16 09:44 05/14/16 11:55 10 MG Heparin Sodium (Porcine) (Heparin Sq 5000 Unit/0.5ml) 5,000 unit Q12 SQ 05/14/16 21:00 06/13/16 20:59 05/15/16 09:09 5,000 UNIT Haloperidol (Haldol Tab) 1 mg QAM PO 05/15/16 09:00 06/14/16 08:59 05/15/16 07:52 1 MG Haloperidol (Haldol Tab) 0.5 mg QPM PO 05/14/16 21:00 06/13/16 20:59 05/14/16 20:18 0.5 MG Haloperidol (Haldol Tab) 0.25 mg DAILY@1200 PO 05/14/16 12:00 06/13/16 11:59 05/15/16 11:51 0.25 MG Miconazole Nitrate (Desenex Powder) 1 appln TID PRN EXT 05/14/16 16:00 06/13/16 15:59 Sodium Chloride (Traill Nasal Ailey) 1 sprays QID PRN NA 05/14/16 16:00 06/13/16 15:59 (Ingrid Israel, ELISE) Current Inpatient Medications Medications (Trade) Dose Ordered Sig/Shaggy Route Start Time Stop Time Status Last Admin Dose Admin Acetaminophen (Tylenol Tab) 650 mg Q4H PRN PO 05/14/16 09:45 06/13/16 09:44 05/14/16 20:18 650 MG Al Hydrox/Mg Hydrox/Simethicone (Maalox Max Susp) 15 ml Q4H PRN PO 05/14/16 09:45 06/13/16 09:44 Magnesium Hydroxide (Milk Of Magnesia Susp) 30 ml Q12H PRN PO 05/14/16 09:45 06/13/16 09:44 Ondansetron HCl (Zofran Inj) 4 mg Q6H PRN IV 05/14/16 09:45 06/13/16 09:44 Nitroglycerin (Nitrostat Tab) 0.4 mg UD PRN SL 05/14/16 09:45 06/13/16 09:44 Polyethylene (Miralax Powder Packet) 17 gm DAILY PRN PO 05/14/16 09:45 06/13/16 09:44 Aspirin (Ecotrin Tab) 81 mg QAM PO 05/15/16 09:00 06/14/16 08:59 05/15/16 07:52 81 MG Atorvastatin Calcium (Lipitor Tab) 10 mg QPM PO 05/14/16 21:00 06/13/16 20:59 05/14/16 20:16 10 MG Magnesium Oxide (Mag-Ox Tab) 400 mg QPM PO 05/14/16 21:00 06/13/16 20:59 05/14/16 20:19 400 MG Metoprolol Tartrate (Lopressor Tab) 25 mg BID PO 05/14/16 21:00 06/13/16 20:59 05/15/16 07:53 25 MG Cholecalciferol (Vitamin D Tab) 2,000 inter.unit QAM PO 05/15/16 09:00 06/14/16 08:59 05/15/16 07:54 2,000 INTER.UNIT Ferrous Sulfate 325 mg 325 mg DAILY PO 05/15/16 09:00 06/14/16 08:59 05/15/16 07:52 325 MG Sodium Chloride (Nss 1000ml) 1,000 ml @ 100 mls/hr Q10H IV 05/14/16 11:30 06/13/16 11:29 05/15/16 07:51 100 MLS/HR Hydralazine HCl (HydrALAZINE INJ) 10 mg Q6 PRN IV. 05/14/16 09:45 06/13/16 09:44 05/14/16 11:55 10 MG Heparin Sodium (Porcine) (Heparin Sq 5000 Unit/0.5ml) 5,000 unit Q12 SQ 05/14/16 21:00 06/13/16 20:59 05/15/16 09:09 5,000 UNIT Haloperidol (Haldol Tab) 1 mg QAM PO 05/15/16 09:00 06/14/16 08:59 05/15/16 07:52 1 MG Haloperidol (Haldol Tab) 0.5 mg QPM PO 05/14/16 21:00 06/13/16 20:59 05/14/16 20:18 0.5 MG Haloperidol (Haldol Tab) 0.25 mg DAILY@1200 PO 05/14/16 12:00 06/13/16 11:59 05/15/16 11:51 0.25 MG Miconazole Nitrate (Desenex Powder) 1 appln TID PRN EXT 05/14/16 16:00 06/13/16 15:59 Sodium Chloride (Traill Nasal Ailey) 1 sprays QID PRN NA 05/14/16 16:00 06/13/16 15:59 (Colin James MD) Objective Vital Signs Date Time Temp Pulse Resp B/P Pulse Ox O2 Delivery O2 Flow Rate FiO2 05/15/16 10:35 36.5 67 20 137/69 97 Room Air 05/15/16 08:00 Room Air 05/15/16 07:46 37.1 70 20 158/80 97 Room Air 05/15/16 04:00 Room Air 05/15/16 03:20 37.2 81 18 152/83 96 Room Air 05/15/16 00:00 Room Air 05/14/16 23:40 36.7 77 16 114/64 95 Room Air 05/14/16 20:00 Room Air 05/14/16 19:15 36.9 96 17 143/75 95 Room Air 05/14/16 16:00 Room Air 05/14/16 15:38 36.5 100 16 135/79 96 Room Air (Ingrid Israel ., PA-C) Physical Exam General Appearance: no apparent distress Eyes: normal inspection, PERRL ENT: hearing grossly normal Neck: supple Respiratory/Chest: lungs clear, no respiratory distress, no accessory muscle use Cardiovascular: regular rate, rhythm, + systolic murmur Abdomen: normal bowel sounds, non tender, soft Extremities: no pedal edema, no calf tenderness Neurologic/Psychiatric: alert, + pertinent finding (Oriented to self and place ) Skin: normal color, warm/dry, no rash (Ingrid Israel, PA-C) General Appearance: WD/WN, no apparent distress Eyes: normal inspection, EOMI ENT: hearing grossly normal Neck: supple Respiratory/Chest: chest non-tender Cardiovascular: regular rate, rhythm Abdomen: normal bowel sounds Extremities: normal range of motion Neurologic/Psychiatric: alert, normal mood/affect, oriented x 3 Skin: normal color, warm/dry (Colin James MD) Laboratory Results Last 24 Hours Test 05/14/16 16:00 05/14/16 16:35 05/15/16 00:00 05/15/16 00:25 Creatine Kinase MB Ratio Creatine Kinase MB 5.5 ng/ml 3.7 ng/ml Troponin I 0.087 ng/ml 0.069 ng/ml Test 05/15/16 05:32 White Blood Count 5.58 K/uL Red Blood Count 4.13 M/uL Hemoglobin 11.9 g/dL Hematocrit 36.4 % Mean Corpuscular Volume 88.1 fL Mean Corpuscular Hemoglobin 28.8 pg Mean Corpuscular Hemoglobin Concent 32.7 g/dl RDW Standard Deviation 44.5 fL RDW Coefficient of Variation 13.8 % Platelet Count 114 K/uL Mean Platelet Volume 10.1 fL Sodium Level 144 mmol/L Potassium Level 4.0 mmol/L Chloride Level 109 mmol/L Carbon Dioxide Level 27 mmol/L Anion Gap 8.0 mmol/L Blood Urea Nitrogen 27 mg/dl Creatinine 0.89 mg/dl Est Creatinine Clear Calc Drug Dose 50.1 ml/min Estimated GFR () 71.4 Estimated GFR (Non- 61.6 BUN/Creatinine Ratio 29.8 Random Glucose 99 mg/dl Calcium Level 8.6 mg/dl Magnesium Level 2.1 mg/dl (Ingrid Israel, ELISE) Last 24 Hours Test 05/14/16 16:00 05/14/16 16:35 05/15/16 00:00 05/15/16 00:25 Creatine Kinase MB Ratio Creatine Kinase MB 5.5 ng/ml 3.7 ng/ml Troponin I 0.087 ng/ml 0.069 ng/ml Test 05/15/16 05:32 White Blood Count 5.58 K/uL Red Blood Count 4.13 M/uL Hemoglobin 11.9 g/dL Hematocrit 36.4 % Mean Corpuscular Volume 88.1 fL Mean Corpuscular Hemoglobin 28.8 pg Mean Corpuscular Hemoglobin Concent 32.7 g/dl RDW Standard Deviation 44.5 fL RDW Coefficient of Variation 13.8 % Platelet Count 114 K/uL Mean Platelet Volume 10.1 fL Sodium Level 144 mmol/L Potassium Level 4.0 mmol/L Chloride Level 109 mmol/L Carbon Dioxide Level 27 mmol/L Anion Gap 8.0 mmol/L Blood Urea Nitrogen 27 mg/dl Creatinine 0.89 mg/dl Est Creatinine Clear Calc Drug Dose 50.1 ml/min Estimated GFR () 71.4 Estimated GFR (Non- 61.6 BUN/Creatinine Ratio 29.8 Random Glucose 99 mg/dl Calcium Level 8.6 mg/dl Magnesium Level 2.1 mg/dl (Colin James MD) Assessment and Plan 80 y/o female, with PMHx of CVA, aortic stenosis, heart disease, HTN, hyperlipidemia, anemia, hypomagnesemia, dementia, blood clots, and anxiety/ depression, who presented to the ED because of confusion and a fall. CXR, head CT, EKG, and U/A unremarkable. Confusion: -Admit tele --Transfer med/surg (05/15) -Trend cardiac enzymes x3 --Trop of 0.083 at admission -Blood cultures pending -IV NSS @ 100 ml/hr -Follow CBC and PRP Heart Disease/ HTN: -Continue Metoprolol 25 mg PO BID Hyperlipidemia: -Continue Atorvastatin 20 mg PO daily Hypomagnesemia: -Continue Mag-Ox 400 mg PO daily -Check mag level Anemia: -Continue Ferrous Sulfate 325 mg PO daily Dementia, Anxiety/Depression: -Continue Haloperidol 1 mg PO morning, 0.25 mg PO afternoon, 0.5 mg PO HS -Consulted mental health, appreciate recommendations --?? Haldol contributing to acute confusion. ?? Switch to Seroquel GI Prophylaxis: -Maalox PRN -IV Zofran PRN -Colace and/or Milk of Mag PRN DVT prophylaxis: -Heparin 5000 units SQ q12 hrs -WILDER and SCDs Code Status: -LEVEL V, DNR Dispo: -Medically stable. -Son is POA, questioning whether patient can be discharged home vs SNF placement. Also, would like to talk to psychiatry first regarding medication switch. (Ingrid Israel, PAYoli) 80 y/o female, with PMHx of CVA, aortic stenosis, heart disease, HTN, hyperlipidemia, anemia, hypomagnesemia, dementia, blood clots, and anxiety/ depression, who presented to the ED because of confusion and a fall. CXR, head CT, EKG, and U/A unremarkable. Confusion: Transfer med/surg (05/15) Trend cardiac enzymes x3 negative Blood cultures pending cont IVF NSS @ 100 ml/hr Heart Disease/ HTN: Continue Metoprolol 25 mg PO BID Hyperlipidemia: Continue Atorvastatin 20 mg PO daily Hypomagnesemia: Continue Mag-Ox 400 mg PO daily Iron def Anemia: Continue Ferrous Sulfate 325 mg PO daily Dementia, Anxiety/Depression: Continue Haloperidol 1 mg PO morning, 0.25 mg PO afternoon, 0.5 mg PO HS Consulted mental health, appreciate recommendations Haldol contributing to acute confusion. ?? Switch to Seroquel ? DVT prophylaxis: Heparin 5000 units SQ q12 hrs WILDER and SCDs Code Status: DNR Dispo: Medically stable. Son is POA, questioning whether patient can be discharged home vs SNF placement. Also, he would like to talk to psychiatry first regarding medication switch. (Colin James MD)
[2016-05-15] MEDS: MAGNESIUM OXIDE 400 MG TAB PO SCH (20:55)
[2016-05-15] MEDS: ATORVASTATIN 10 MG TAB PO SCH (20:55)
[2016-05-16 00:24] VITALS: BP 152/76; PULSE 61; TEMP 36.3; O2SAT 95
[2016-05-16] MEDS: SODIUM CHLORIDE 0.9% 1000ML 1,000 ML IV SCH ×3 (03:30→23:51)
[2016-05-16 07:33] VITALS: BP 162/80; PULSE 64; TEMP 36.4; O2SAT 99
[2016-05-16] MEDS: ASPIRIN 81 MG ECTAB PO SCH (07:57)
[2016-05-16] MEDS: HALOPERIDOL 0.5 MG TAB PO SCH ×3 (07:57→20:08)
[2016-05-16] MEDS: FERROUS SULFATE 325 MG TAB PO SCH (07:57)
[2016-05-16] MEDS: CHOLECALCIFEROL 1000 INTER.UNIT TAB PO SCH (07:58)
[2016-05-16] MEDS: METOPROLOL TARTRATE 25 MG TAB PO SCH ×2 (07:58→20:08)
[2016-05-16] MEDS: HEPARIN SOD 5000 UNIT/0.5 ML CARP SQ SCH ×2 (07:59→20:08)
[2016-05-16 08:26] LABS: HEMATOCRIT 34.8 % (37-47); MEAN CELL VOLUME 88.5 fL (80-100); MEAN CORPUSCULAR HEMOGLOBIN 29.3 pg (25-34); MEAN PLATELET VOLUME 10.4 fL (7.4-10.4); PLATELET COUNT 107 K/uL (130-400); RED BLOOD COUNT 3.93 M/uL (4.2-5.4); WHITE BLOOD COUNT 5.25 K/uL (4.8-10.8)
[2016-05-16] MEDS ORDERED: HALOPERIDOL 1 MG TAB PO SCH (09:00)
[2016-05-16 09:29] LABS: BUN/CREATININE RATIO 22.3 (10-20); CALCIUM 8.4 mg/dl (8.5-10.1); CREATININE 0.79 mg/dl (0.60-1.20); POTASSIUM 3.9 mmol/L (3.5-5.1)
--- NOTE | 2016-05-16 09:53 | Hospitalist Progress Note ---
Hospitalist Progress Note Date of Service May 16, 2016. (Ingrid Israel ., ELISE) 05/16/16 agree with PA note talked to family patient is confused (Colin James MD) Subjective Pt evaluation today including: conversation w/ patient, physical exam, chart review, lab review, review of inpatient medication list Patient is pleasantly confused. Oriented to self. States she is feeling good today. Patient denies any fever, chills, sweats, lightheadedness, dizziness, vision changes, CP, palpitations, edema, SOB, wheezing, cough, abdominal pain, nausea, vomiting, diarrhea, urinary symptoms, melena, numbness/tingling, weakness, muscle/joint pain, anxiety/depression, active bleeding, or new skin discoloration/changes. (Ingrid Israel, ETHANC) Pt evaluation today including: conversation w/ patient, conversation w/ family , physical exam, chart review, lab review, review of studies, review of inpatient medication list ROS is limited due to patient confusion ENT: No hearing loss Respiratory: No cough Abdomen: No pain Skin: No rash (Colin James MD) Medications Current Inpatient Medications Medications (Trade) Dose Ordered Sig/Shaggy Route Start Time Stop Time Status Last Admin Dose Admin Acetaminophen (Tylenol Tab) 650 mg Q4H PRN PO 05/14/16 09:45 06/13/16 09:44 05/14/16 20:18 650 MG Al Hydrox/Mg Hydrox/Simethicone (Maalox Max Susp) 15 ml Q4H PRN PO 05/14/16 09:45 06/13/16 09:44 Magnesium Hydroxide (Milk Of Magnesia Susp) 30 ml Q12H PRN PO 05/14/16 09:45 06/13/16 09:44 Ondansetron HCl (Zofran Inj) 4 mg Q6H PRN IV 05/14/16 09:45 06/13/16 09:44 Nitroglycerin (Nitrostat Tab) 0.4 mg UD PRN SL 05/14/16 09:45 06/13/16 09:44 Polyethylene (Miralax Powder Packet) 17 gm DAILY PRN PO 05/14/16 09:45 06/13/16 09:44 Aspirin (Ecotrin Tab) 81 mg QAM PO 05/15/16 09:00 06/14/16 08:59 05/16/16 07:57 81 MG Atorvastatin Calcium (Lipitor Tab) 10 mg QPM PO 05/14/16 21:00 06/13/16 20:59 05/15/16 20:55 10 MG Magnesium Oxide (Mag-Ox Tab) 400 mg QPM PO 05/14/16 21:00 06/13/16 20:59 05/15/16 20:55 400 MG Metoprolol Tartrate (Lopressor Tab) 25 mg BID PO 05/14/16 21:00 06/13/16 20:59 05/16/16 07:58 25 MG Cholecalciferol (Vitamin D Tab) 2,000 inter.unit QAM PO 05/15/16 09:00 06/14/16 08:59 05/16/16 07:58 2,000 INTER.UNIT Ferrous Sulfate 325 mg 325 mg DAILY PO 05/15/16 09:00 06/14/16 08:59 05/16/16 07:57 325 MG Sodium Chloride (Nss 1000ml) 1,000 ml @ 100 mls/hr Q10H IV 05/14/16 11:30 06/13/16 11:29 05/15/16 21:00 100 MLS/HR Hydralazine HCl (HydrALAZINE INJ) 10 mg Q6 PRN IV. 05/14/16 09:45 06/13/16 09:44 05/14/16 11:55 10 MG Heparin Sodium (Porcine) (Heparin Sq 5000 Unit/0.5ml) 5,000 unit Q12 SQ 05/14/16 21:00 06/13/16 20:59 05/16/16 07:59 5,000 UNIT Miconazole Nitrate (Desenex Powder) 1 appln TID PRN EXT 05/14/16 16:00 06/13/16 15:59 Sodium Chloride ([place] Nasal [place]) 1 sprays QID PRN NA 05/14/16 16:00 06/13/16 15:59 Haloperidol (Haldol Tab) 0.5 mg TID PO 05/15/16 21:00 06/14/16 20:59 05/16/16 07:57 0.5 MG (Ingrid Israel PA-C) Objective Vital Signs Date Time Temp Pulse Resp B/P Pulse Ox O2 Delivery O2 Flow Rate FiO2 05/16/16 07:33 36.4 64 16 162/80 99 Room Air 05/16/16 00:24 36.3 61 19 152/76 95 Room Air 05/16/16 00:00 Room Air 05/15/16 16:12 36.3 67 16 173/79 95 Room Air 05/15/16 16:00 96 Room Air 05/15/16 14:13 36.3 63 16 149/79 96 Room Air 05/15/16 13:53 36.5 67 20 97 05/15/16 12:00 Room Air 05/15/16 10:35 36.5 67 20 137/69 97 Room Air (Ingrid Israel, PA-C) Physical Exam General Appearance: no apparent distress Eyes: normal inspection, PERRL ENT: hearing grossly normal Neck: supple Respiratory/Chest: lungs clear, no respiratory distress, no accessory muscle use Cardiovascular: regular rate, rhythm, + systolic murmur Abdomen: normal bowel sounds, non tender, soft Extremities: no pedal edema, no calf tenderness Neurologic/Psychiatric: alert, + pertinent finding (Oriented to self ) Skin: normal color, warm/dry, no rash (Ingrid Israel, PA-C) General Appearance: WD/WN, no apparent distress Eyes: normal inspection, EOMI ENT: hearing grossly normal, pharynx normal Neck: supple, no JVD Respiratory/Chest: lungs clear, normal breath sounds Cardiovascular: regular rate, rhythm, no gallop Abdomen: normal bowel sounds, soft Extremities: non-tender Neurologic/Psychiatric: no motor/sensory deficits Skin: no rash (Cloin James MD) Laboratory Results Last 24 Hours Test 05/16/16 07:40 05/16/16 07:50 White Blood Count 5.25 K/uL Red Blood Count 3.93 M/uL Hemoglobin 11.5 g/dL Hematocrit 34.8 % Mean Corpuscular Volume 88.5 fL Mean Corpuscular Hemoglobin 29.3 pg Mean Corpuscular Hemoglobin Concent 33.0 g/dl RDW Standard Deviation 44.4 fL RDW Coefficient of Variation 13.6 % Platelet Count 107 K/uL Mean Platelet Volume 10.4 fL Sodium Level 144 mmol/L Potassium Level 3.9 mmol/L Chloride Level 110 mmol/L Carbon Dioxide Level 26 mmol/L Anion Gap 8.0 mmol/L Blood Urea Nitrogen 18 mg/dl Creatinine 0.79 mg/dl Est Creatinine Clear Calc Drug Dose 56.5 ml/min Estimated GFR () 82.5 Estimated GFR (Non- 71.2 BUN/Creatinine Ratio 22.3 Random Glucose 101 mg/dl Calcium Level 8.4 mg/dl Magnesium Level 2.0 mg/dl (Ingrid Israel PA-C) Assessment and Plan 80 y/o female, with PMHx of CVA, aortic stenosis, heart disease, HTN, hyperlipidemia, anemia, hypomagnesemia, dementia, blood clots, and anxiety/ depression, who presented to the ED because of confusion and a fall. CXR, head CT, EKG, and U/A unremarkable. Confusion: -Admit tele --Transfer med/surg (05/15) -Trend cardiac enzymes x3 --Trop of 0.083 at admission -Blood cultures, preliminary with no growth -IV NSS @ 100 ml/hr -Follow CBC and PRP Heart Disease/ HTN: -Continue Metoprolol 25 mg PO BID Hyperlipidemia: -Continue Atorvastatin 20 mg PO daily Hypomagnesemia: -Continue Mag-Ox 400 mg PO daily -Check mag level Anemia: -Continue Ferrous Sulfate 325 mg PO daily Dementia, Anxiety/Depression: -Continue Haloperidol 1 mg PO morning, 0.25 mg PO afternoon, 0.5 mg PO HS -Consulted mental health, appreciate recommendations --?? Haldol contributing to acute confusion. ?? Switch to Seroquel GI Prophylaxis: -Maalox PRN -IV Zofran PRN -Colace and/or Milk of Mag PRN DVT prophylaxis: -Heparin 5000 units SQ q12 hrs -WILDER and SCDs Code Status: -LEVEL V, DNR Dispo: -Medically stable. -Son is POA, questioning whether patient can be discharged home vs SNF placement. Also, would like to talk to psychiatry first regarding medication switch and placement decision. (Ingrid Israel .ELISE) 80 y/o female, with PMHx of CVA, aortic stenosis, heart disease, HTN, hyperlipidemia, anemia, hypomagnesemia, dementia, blood clots, and anxiety/ depression, who presented to the ED because of confusion and a fall. CXR, head CT, EKG, and U/A unremarkable. Confusion: improved Trop of 0.083 at admission, remained stable Blood cultures, preliminary with no growth cont IVF Heart Disease/ HTN: Continue Metoprolol 25 mg PO BID Hyperlipidemia: Continue Atorvastatin 20 mg PO daily Hypomagnesemia: Continue Mag-Ox 400 mg PO daily Check mag level in am Anemia: Continue Ferrous Sulfate 325 mg PO daily Dementia, Anxiety/Depression: Continue Haloperidol 1 mg PO morning, 0.25 mg PO afternoon, 0.5 mg PO HS Consulted mental health, appreciate recommendations --?? Haldol contributing to acute confusion. ?? Switch to Seroquel DVT prophylaxis: Heparin 5000 units SQ q12 hrs Code Status:DNR Dispo: Medically stable. -Son is POA, questioning whether patient can be discharged to SNF. Also, would like to talk to psychiatry first regarding medication switch and placement decision. Will d/w CAROL (Colin James MD)
[2016-05-16] MEDS: ACETAMINOPHEN 325 MG TAB PO PRN ×2 (10:00→21:10)
[2016-05-16 15:30] VITALS: BP 162/75; PULSE 66; TEMP 36.2; O2SAT 96
[2016-05-16 16:00] VITALS: O2SAT 96
[2016-05-16] MEDS: MAGNESIUM OXIDE 400 MG TAB PO SCH (20:08)
[2016-05-16] MEDS: ATORVASTATIN 10 MG TAB PO SCH (20:08)
[2016-05-16 23:24] VITALS: BP 167/81; PULSE 68; TEMP 36.8; O2SAT 98
[2016-05-16] MEDS: HydrALAZINE HCL 20 MG/ML VIAL IV. PRN (23:51)
[2016-05-17 01:02] VITALS: BP 128/67
[2016-05-17] MEDS: ACETAMINOPHEN 325 MG TAB PO PRN ×2 (01:34→07:50)
[2016-05-17] MEDS: ASPIRIN 81 MG ECTAB PO SCH (07:51)
[2016-05-17] MEDS: METOPROLOL TARTRATE 25 MG TAB PO SCH ×2 (07:52→21:10)
[2016-05-17] MEDS: HALOPERIDOL 0.5 MG TAB PO SCH ×3 (07:52→21:07)
[2016-05-17] MEDS: CHOLECALCIFEROL 1000 INTER.UNIT TAB PO SCH (07:53)
[2016-05-17] MEDS: FERROUS SULFATE 325 MG TAB PO SCH (07:53)
[2016-05-17] MEDS: HEPARIN SOD 5000 UNIT/0.5 ML CARP SQ SCH ×2 (08:02→21:10)
[2016-05-17 08:03] VITALS: BP 155/70; PULSE 70; TEMP 36.3; O2SAT 96
[2016-05-17] MEDS: SODIUM CHLORIDE 0.9% 1000ML 1,000 ML IV SCH (08:03)
[2016-05-17 08:22] LABS: HEMATOCRIT 38.6 % (37-47); MEAN CELL VOLUME 89.6 fL (80-100); MEAN CORPUSCULAR HEMOGLOBIN 29.7 pg (25-34); MEAN CORPUSCULAR HGB CONC 33.2 g/dl (32-36); MEAN PLATELET VOLUME 10.6 fL (7.4-10.4); PLATELET COUNT 124 K/uL (130-400); RED BLOOD COUNT 4.31 M/uL (4.2-5.4); WHITE BLOOD COUNT 7.47 K/uL (4.8-10.8)
[2016-05-17 08:46] LABS: BUN/CREATININE RATIO 16.7 (10-20); CALCIUM 8.8 mg/dl (8.5-10.1); CREATININE 0.85 mg/dl (0.60-1.20); MAGNESIUM 1.9 mg/dl (1.8-2.4); POTASSIUM 3.8 mmol/L (3.5-5.1)
--- NOTE | 2016-05-17 11:32 | Progress Note ---
Subjective Subjective Date of Service: May 17, 2016. Pt evaluation today including: conversation w/ patient, physical exam, chart review, review of studies, review of inpatient medication list Notes: pt is demented, ros is limited Problem List Medical Problems: (1) Agitation Status: Acute (2) Altered mental status Status: Acute (3) Confused Status: Acute (4) Confusion Status: Acute (5) Dark stools Status: Acute (6) Elevated troponin Status: Acute (7) Urinary tract infection Status: Acute (8) UTI (urinary tract infection) Status: Acute (9) UTI (urinary tract infection) Status: Acute Physical Exam Vital Signs Vital Signs Past 24 Hours: Date Time Temp Pulse Resp B/P Pulse Ox O2 Delivery O2 Flow Rate FiO2 05/17/16 08:30 Room Air 05/17/16 08:03 36.3 70 20 155/70 96 Room Air 05/17/16 01:02 128/67 05/16/16 23:24 36.8 68 18 167/81 98 Room Air 05/16/16 20:00 Room Air 05/16/16 16:00 96 Room Air 05/16/16 15:30 36.2 66 20 162/75 96 Room Air Physical Exam: General Appearance: WD/WN, no apparent distress Eyes: bilateral eyes normal inspection ENT: hearing grossly normal, pharynx normal Neck: supple, no JVD Respiratory/Chest: lungs clear, no respiratory distress Cardiovascular: no gallop, no JVD Abdomen: non tender Extremities: non-tender Neurologic/Psychiatric: alert Skin: normal color Medications Medications: Current Inpatient Medications Medications (Trade) Dose Ordered Sig/Shaggy Route Start Time Stop Time Status Last Admin Dose Admin Acetaminophen (Tylenol Tab) 650 mg Q4H PRN PO 05/14/16 09:45 06/13/16 09:44 05/17/16 07:50 650 MG Al Hydrox/Mg Hydrox/Simethicone (Maalox Max Susp) 15 ml Q4H PRN PO 05/14/16 09:45 06/13/16 09:44 Magnesium Hydroxide (Milk Of Magnesia Susp) 30 ml Q12H PRN PO 05/14/16 09:45 06/13/16 09:44 Ondansetron HCl (Zofran Inj) 4 mg Q6H PRN IV 05/14/16 09:45 1/28/17 09:44 Nitroglycerin (Nitrostat Tab) 0.4 mg UD PRN SL 05/14/16 09:45 06/13/16 09:44 Polyethylene (Miralax Powder Packet) 17 gm DAILY PRN PO 05/14/16 09:45 06/13/16 09:44 Aspirin (Ecotrin Tab) 81 mg QAM PO 05/15/16 09:00 06/14/16 08:59 05/17/16 07:51 81 MG Atorvastatin Calcium (Lipitor Tab) 10 mg QPM PO 05/14/16 21:00 06/13/16 20:59 05/16/16 20:08 10 MG Magnesium Oxide (Mag-Ox Tab) 400 mg QPM PO 05/14/16 21:00 06/13/16 20:59 05/16/16 20:08 400 MG Metoprolol Tartrate (Lopressor Tab) 25 mg BID PO 05/14/16 21:00 06/13/16 20:59 05/17/16 07:52 25 MG Cholecalciferol (Vitamin D Tab) 2,000 inter.unit QAM PO 05/15/16 09:00 06/14/16 08:59 05/17/16 07:53 2,000 INTER.UNIT Ferrous Sulfate 325 mg 325 mg DAILY PO 05/15/16 09:00 06/14/16 08:59 05/17/16 07:53 325 MG Sodium Chloride (Nss 1000ml) 1,000 ml @ 100 mls/hr Q10H IV 05/14/16 11:30 06/13/16 11:29 05/17/16 08:03 100 MLS/HR Hydralazine HCl (HydrALAZINE INJ) 10 mg Q6 PRN IV. 05/14/16 09:45 06/13/16 09:44 05/16/16 23:51 10 MG Heparin Sodium (Porcine) (Heparin Sq 5000 Unit/0.5ml) 5,000 unit Q12 SQ 05/14/16 21:00 06/13/16 20:59 05/17/16 08:02 5,000 UNIT Miconazole Nitrate (Desenex Powder) 1 appln TID PRN EXT 05/14/16 16:00 06/13/16 15:59 Sodium Chloride ([place] Nasal [place]) 1 sprays QID PRN NA 05/14/16 16:00 06/13/16 15:59 Haloperidol (Haldol Tab) 0.5 mg TID PO 05/15/16 21:00 06/14/16 20:59 05/17/16 07:52 0.5 MG Laboratory Data Labs: Last 24 Hours Test 05/17/16 08:00 White Blood Count 7.47 K/uL Red Blood Count 4.31 M/uL Hemoglobin 12.8 g/dL Hematocrit 38.6 % Mean Corpuscular Volume 89.6 fL Mean Corpuscular Hemoglobin 29.7 pg Mean Corpuscular Hemoglobin Concent 33.2 g/dl RDW Standard Deviation 45.4 fL RDW Coefficient of Variation 13.9 % Platelet Count 124 K/uL Mean Platelet Volume 10.6 fL Sodium Level 145 mmol/L Potassium Level 3.8 mmol/L Chloride Level 110 mmol/L Carbon Dioxide Level 26 mmol/L Anion Gap 9.0 mmol/L Blood Urea Nitrogen 14 mg/dl Creatinine 0.85 mg/dl Est Creatinine Clear Calc Drug Dose 52.5 ml/min Estimated GFR () 75.5 Estimated GFR (Non- 65.2 BUN/Creatinine Ratio 16.7 Random Glucose 104 mg/dl Calcium Level 8.8 mg/dl Magnesium Level 1.9 mg/dl Assessment and Plan 80 y/o female, with PMHx of CVA, aortic stenosis, heart disease, HTN, hyperlipidemia, anemia, hypomagnesemia, dementia, blood clots, and anxiety/ depression, who presented to the ED because of confusion and a fall. CXR, head CT, EKG, and U/A unremarkable. Confusion: improved Trop of 0.083 at admission, remained stable Blood cultures, preliminary with no growth stop IVF Heart Disease/ HTN: Continue Metoprolol 25 mg PO BID Hyperlipidemia: Continue Atorvastatin 20 mg PO daily Hypomagnesemia: Continue Mag-Ox 400 mg PO daily Check mag level in am Anemia: Continue Ferrous Sulfate 325 mg PO daily Dementia, Anxiety/Depression: Continue Haloperidol 1 mg PO morning, 0.25 mg PO afternoon, 0.5 mg PO HS Consulted mental health, appreciate recommendations --?? Haldol contributing to acute confusion. ?? Switch to Seroquel DVT prophylaxis: Heparin 5000 units SQ q12 hrs Code Status:DNR Dispo: Medically stable. -Son is POA, questioning whether patient can be discharged to SNF. Also, would like to talk to psychiatry first regarding medication switch and placement decision. Will d/w SW, hopefully d/c tomorrow
[2016-05-17 15:44] VITALS: BP 157/67; PULSE 86; TEMP 36.9; O2SAT 96
[2016-05-17 16:00] VITALS: O2SAT 96
[2016-05-17] MEDS: MAGNESIUM OXIDE 400 MG TAB PO SCH (21:07)
[2016-05-17] MEDS: ATORVASTATIN 10 MG TAB PO SCH (21:07)
[2016-05-17 21:09] VITALS: BP 150/74; PULSE 90
[2016-05-17 23:34] VITALS: BP 145/67; PULSE 76; TEMP 37.1; O2SAT 93
[2016-05-18] MEDS: FERROUS SULFATE 325 MG TAB PO SCH (07:22)
[2016-05-18] MEDS: METOPROLOL TARTRATE 25 MG TAB PO SCH ×2 (07:22→20:01)
[2016-05-18] MEDS: ASPIRIN 81 MG ECTAB PO SCH (07:22)
[2016-05-18] MEDS: HALOPERIDOL 0.5 MG TAB PO SCH ×2 (07:23→20:00)
[2016-05-18] MEDS: CHOLECALCIFEROL 1000 INTER.UNIT TAB PO SCH (07:23)
[2016-05-18] MEDS: HEPARIN SOD 5000 UNIT/0.5 ML CARP SQ SCH ×2 (07:25→20:04)
[2016-05-18 08:50] VITALS: BP 149/63; PULSE 71; TEMP 36.4; O2SAT 95
--- NOTE | 2016-05-18 12:21 | Psychiatric Progress Notes ---
Progress Note Date of Service May 18, 2016. Interval History Ms. Easley is a 80 yo female who resides with her daughters in [place] and is treated by Dr. Scanlon at [facility]. She was previously seen on consultation service 01/16/16 for AMS. At that time she had made statements about self harm and was combative at times with daughter (post stroke). History today is primarily obtained from daughter as the patient is sleeping. Chief Complaint "[]". Subjective Reviewed initial consult by Dr. Mark from 05/15/16, and interim records sine that time. Per her note, patient has been struggling at home following her admission earlier this month for C diff and UTI, has frequent episodes of confusion, with irritability that is worse in the evenings. She has been following with Dr. Melton at [facility] and was started on Haldol for agitation, but the dose was decreased here due to concerns for somnolence, negative impact on gait, and occasional restlessness. No hallucinations, paranoia, or combative behavior. Today, the patient is sleeping, and although she wakes up briefly, makes only brief statements (asking about her shoes) before falling back asleep. Her daughter Lucille is at the bedside and provides much of the history. She states the patient is doing well, has not been agitated or aggressive here, but has been sleepy during the day. They are working on correction placement, as the family feels unable to care for her at home. The psychiatric liaison nurse spoke to the patient's son Dixon by phone, and he reported that he thought the Haldol was causing weakness and drowsiness. He also reported a previous trial of Seroquel was ineffective. 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 Unclear if restlessness related to dementia vs side effect from Haldol. Haldol dose decreased from 1mg tid to 0.5mg tid on 05/15/16. No episodes of agitation or psychosis here, with some daytime sedation, so will decrease further to 0.5mg bid. 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 She is currently being maintained on low dose Haldol. Troponin elevations noted. Liaison to communicate with POA and obtain releases for [facility], doubt indication for inpatient [facility] psych admit as not threatening/aggressive and ongoing medical, likely needs PT higher level of nursing support (ie unable to be maintained currently at home). Son had previously wanted to avoid atypical antipsychotic due to risk of in elderly dementia patients, and she failed a previous trial of Seroquel. 05/18/16 - Decrease Haldol to 0.5mg bid to try to limit daytime sedation. - No indication for inpatient psychiatric hospitalization. - Coordinate care with Dr. Melton at [facility] and ensure outpatient follow up. Visit Code E&M Code: 38290 Data Vital Signs Last 24 Hrs: Date Time Temp Pulse Resp B/P Pulse Ox O2 Delivery O2 Flow Rate FiO2 05/18/16 08:50 36.4 71 18 149/63 95 Room Air 05/18/16 07:39 Room Air 05/18/16 00:50 Room Air 05/17/16 23:34 37.1 76 18 145/67 93 Room Air 05/17/16 21:09 90 150/74 05/17/16 16:00 96 Room Air 05/17/16 15:44 36.9 86 20 157/67 96 Room Air
[2016-05-18] MEDS: ACETAMINOPHEN 325 MG TAB PO PRN ×2 (12:32→17:51)
[2016-05-18 15:45] VITALS: BP 101/62; PULSE 71; TEMP 36.5; O2SAT 94
[2016-05-18 16:05] VITALS: O2SAT 94
[2016-05-18] MEDS: MAGNESIUM OXIDE 400 MG TAB PO SCH (20:00)
[2016-05-18] MEDS: ATORVASTATIN 10 MG TAB PO SCH (20:01)
[2016-05-18 20:29] VITALS: BP 134/70; PULSE 78
[2016-05-18 23:22] VITALS: BP 136/66; PULSE 60; TEMP 36.4; O2SAT 93
[2016-05-19 07:24] VITALS: BP 167/82; PULSE 79; TEMP 36.4; O2SAT 95
[2016-05-19] MEDS: FERROUS SULFATE 325 MG TAB PO SCH (08:03)
[2016-05-19] MEDS: ASPIRIN 81 MG ECTAB PO SCH (08:04)
[2016-05-19] MEDS: METOPROLOL TARTRATE 25 MG TAB PO SCH ×2 (08:04→20:43)
[2016-05-19] MEDS: HALOPERIDOL 0.5 MG TAB PO SCH ×2 (08:04→20:42)
[2016-05-19] MEDS: CHOLECALCIFEROL 1000 INTER.UNIT TAB PO SCH (08:04)
[2016-05-19] MEDS: HEPARIN SOD 5000 UNIT/0.5 ML CARP SQ SCH ×2 (08:27→20:43)
--- NOTE | 2016-05-19 10:22 | Hospitalist Progress Note ---
Hospitalist Progress Note Date of Service May 19, 2016. (Tiffany Navarro PA-C) 05/19/16 agree with PA note (Colin James MD) Subjective Pt evaluation today including: conversation w/ patient, conversation w/ family , chart review, lab review Patient currently has no complaints. Denies any pain. Denies any chest discomfort. No shortness of breath. No heart palpitations. Patient is confused. Answering some questions appropriately. Additional Comments: 6 system review negative. Please see pertinent positives in the history of present illness section. (Tiffany Navarro PA-C) Pt evaluation today including: conversation w/ patient, physical exam, chart review, review of studies, review of inpatient medication list ROS is limited due to confusion Constitutional: No fever ENT: No hearing loss Respiratory: No cough Cardiovascular: No chest pain Abdomen: No pain Female : No dysuria (Colin James MD) Objective Vital Signs Date Time Temp Pulse Resp B/P Pulse Ox O2 Delivery O2 Flow Rate FiO2 05/19/16 09:00 Room Air 05/19/16 07:24 36.4 79 20 167/82 95 Room Air 05/18/16 23:22 36.4 60 18 136/66 93 Room Air 05/18/16 20:29 78 134/70 05/18/16 16:05 94 Room Air 05/18/16 15:45 36.5 71 18 101/62 94 Room Air (Tiffany Navarro PA-C) Physical Exam General Appearance: no apparent distress Eyes: EOMI Neck: no JVD Respiratory/Chest: lungs clear Cardiovascular: regular rate, rhythm Abdomen: normal bowel sounds, non tender, soft Extremities: + pertinent finding (trace pitting edema in the lower extremities bilaterally) Neurologic/Psychiatric: alert, + pertinent finding (confused. Answering some questions appropriately.) Skin: warm/dry (Tiffany Navarro PA-C) General Appearance: WD/WN, no apparent distress Eyes: normal inspection, EOMI ENT: hearing grossly normal, pharynx normal Neck: supple, no JVD Respiratory/Chest: chest non-tender, normal breath sounds Cardiovascular: regular rate, rhythm, no gallop Abdomen: normal bowel sounds, soft Extremities: non-tender, no pedal edema Neurologic/Psychiatric: no motor/sensory deficits Skin: normal color, warm/dry (Colin James MD) Assessment and Plan 80 y/o female, with PMHx of CVA, aortic stenosis, heart disease, HTN, hyperlipidemia, anemia, hypomagnesemia, dementia, blood clots, and anxiety/ depression, who presented to the ED because of confusion and a fall. CXR, head CT, EKG, and U/A unremarkable. Confusion: improved Trop of 0.083 at admission, remained stable Blood cultures, preliminary with no growth Heart Disease/ HTN: Continue Metoprolol 25 mg PO BID Hyperlipidemia: Continue Atorvastatin 20 mg PO daily Hypomagnesemia: resolved Continue Mag-Ox 400 mg PO daily Anemia: Continue Ferrous Sulfate 325 mg PO daily Dementia, Anxiety/Depression: Haldol changed to 0.5 mg BID (from TID) yesterday-tolerating well DVT prophylaxis: Heparin 5000 units SQ q12 hrs Code Status:DNR Dispo: Medically stable. -[facility] referral pending (Tiffany Navarro PA-C) 80 y/o female, with PMHx of CVA, aortic stenosis, heart disease, HTN, hyperlipidemia, anemia, hypomagnesemia, dementia, blood clots, and anxiety/ depression, who presented to the ED because of confusion and a fall. CXR, head CT, EKG, and U/A unremarkable. Confusion: improved Trop of 0.083 at admission, remained stable Blood cultures, preliminary with no growth Heart Disease/ HTN: Continue Metoprolol 25 mg PO BID Hyperlipidemia: Continue Atorvastatin 20 mg PO daily Hypomagnesemia: resolved Continue Mag-Ox 400 mg PO daily Anemia: Continue Ferrous Sulfate 325 mg PO daily Dementia, Anxiety/Depression: Haldol changed to 0.5 mg BID (from TID) yesterday-tolerating well DVT prophylaxis: Heparin 5000 units SQ q12 hrs Code Status:DNR Dispo: Medically stable. [facility] referral pending, [facility] if denied (Colin James MD)
[2016-05-19] MEDS ORDERED: HLD.5 PO (13:05)
--- NOTE | 2016-05-19 13:17 | Discharge Instructions ---
Discharge Instructions Admission Reason for Admission: Confusion Discharge Discharge Diagnosis / Problem: confusion, elevated troponin Discharge Goals Goal(s): Improve function Activity Recommendations Activity Limitations: resume your previous activity . Instructions / Follow-Up Instructions / Follow-Up You have been admitted to the hospital with increased confusion. Your dose of Haldol was changed to 0.5 mg twice daily Please follow up with Dr. Melton at [facility] in 1-2 weeks Please also follow up with your Primary Care Physician within 1 week Return to the emergency department if you have any of the following symptoms: -Fever of 101F or greater -Persistent vomiting - Persistent diarrhea -Chest pain -Shortness of breath Current Hospital Diet Patient's current hospital diet: AHA Diet (Heart Healthy) Discharge Diet Recommended Diet: AHA Diet (Heart Healthy) Pending Studies Studies pending at discharge: no Medical Emergencies . Who to Call and When: Medical Emergencies: If at any time you feel your situation is an emergency, please call 911 immediately. . Non-Emergent Contact Non-Emergency issues call your: Primary Care Provider . . "Provider Documentation" section prepared by Tiffany Navarro. VTE Core Measure Inpt VTE Proph given/why not?: Unfractionated heparin LENNIE, T.E.Rafael. [place], SCD 's
--- NOTE | 2016-05-19 14:04 | Discharge Summary ---
Discharge Summary Admission Date: May 14, 2016 at 10:02 Discharge Date: May 19, 2016 Discharge Disposition: Rehab Principal Diagnosis: confusion, fall Problems/Secondary Diagnoses: elevated troponin HTN dementia s/p AVR Immunizations: Have You Had Influenza Vaccine: Yes Influenza Vaccine Date: Apr 01, 2011 History of Tetanus Vaccine?: utd Tetanus Immunization Date: Mar 30, 2009 History of Pneumococcal: Yes Pneumococcal Date: Apr 02, 2011 History of Hepatitis B Vaccine: Unknown Procedures: -- Conclusions -- 1. Normal LV size, asymmetric basal septal hypertrophy. 2. Normal LV systolic function. LVEF 50-55%. Septal motion consistent with post-operative state. Dyskinetic apical lateral wall. 3. RV not well visualized. Mild RV dysfunction. 4. Bioprosthetic Aortic valve well seated. Normal transvalvular gradient. 5. Grade I diastolic dysfunction. 6. Compared with prior JAYLON study report on 09/03/2014: Bioprosthetic aortic valve is new. Consultations: psychiatry Medication Reconciliation New Medications: Haloperidol (Haloperidol) 0.5 Mg Tab 0.5 MG PO BID for 30 Days, #60 TAB Continued Medications: Aspirin (Aspirin Ec) 81 Mg Tab 81 MG PO QAM Atorvastatin (Lipitor) 20 Mg Tab 10 MG PO QPM, TAB Cholecalciferol (Vitamin D) 2,000 Unit Tab 1 TAB PO QAM Coenzyme Q10 (Ubidecarenone) (Co Q10) 50 Mg Cap 1 CAP PO QAM, CAP Ferrous Sulfate (Ferrous Sulfate) 325 Mg Tab 325 MG PO DAILY Magnesium Oxide (Mag-Ox) 400 Mg Tab 400 MG PO QPM, TAB Metoprolol Tartrate (Lopressor) 25 Mg Tab 25 MG PO BID, #60 TAB 5 Refills Nystatin (Topical) (Nystatin) 1 Pow Pow Discontinued Medications: Haloperidol (Haloperidol) 1 Mg Tab 1 MG PO QAM Haloperidol (Haloperidol) 1 Mg Tab 0.5 MG PO HS Haloperidol (Haloperidol) 1 Mg Tab 0.25 MG PO UD PTS TAKES 1MG IN THE MORNING 0.25MG IN THE AFTER NOON 0.5MG IN THE EVENING Metronidazole (Metronidazole) 500 Mg Tab 500 MG PO TID for 10 Days, #30 TAB 0 Refills Referrals At Discharge Follow up Referrals: Lead Software Test Engineer Referral - Within 1-2 Weeks with Abad Andresen MD Discharge Exam pt has no complaints. Denies CP, SOB, abd pain, fever or chills. No heart palpitations Review of Systems: Constitutional: No fever Respiratory: No cough, No shortness of breath Cardiovascular: No chest pain Abdomen: No nausea Hospital Course 80 y/o female, with PMHx of CVA, aortic stenosis, heart disease, HTN, hyperlipidemia, anemia, hypomagnesemia, dementia, blood clots, and anxiety/ depression, who presented to the ED because of confusion and a fall. CXR, head CT, EKG, and U/A unremarkable. Confusion: improved Trop of 0.083 at admission, trended down Echo done, c/w post operative state Blood cultures-no growth Heart Disease/ HTN: Continue Metoprolol 25 mg PO BID Hyperlipidemia: Continue Atorvastatin 20 mg PO daily Hypomagnesemia: resolved Continue Mag-Ox 400 mg PO daily Anemia: Continue Ferrous Sulfate 325 mg PO daily Dementia, Anxiety/Depression: Haldol changed to 0.5 mg BID (from TID) yesterday-tolerating well Needs psych follow up DVT prophylaxis: Heparin 5000 units SQ q12 hrs Code Status:DNR Dispo: Medically stable. -hopeful for d/c to [facility] This includes examination of the patient, discharge planning, medication reconciliation, and communication with other providers. Discharge Instructions Please refer to the electronic Patient Visit Report (Discharge Instructions) for additional information.
[2016-05-19 15:54] VITALS: BP 149/78; PULSE 69; TEMP 36.7; O2SAT 94
[2016-05-19 16:20] VITALS: O2SAT 94
[2016-05-19] MEDS: MAGNESIUM OXIDE 400 MG TAB PO SCH (20:42)
[2016-05-19] MEDS: ATORVASTATIN 10 MG TAB PO SCH (20:42)
[2016-05-19] MEDS: ACETAMINOPHEN 325 MG TAB PO PRN (20:45)
[2016-05-20 00:33] VITALS: BP 149/73; PULSE 74; TEMP 36.5; O2SAT 91
[2016-05-20 07:00] VITALS: BP 176/89; PULSE 88; TEMP 36.6; O2SAT 95
[2016-05-20 07:24] LABS: HEMATOCRIT 37.4 % (37-47); MEAN CELL VOLUME 88.8 fL (80-100); MEAN CORPUSCULAR HEMOGLOBIN 29.2 pg (25-34); MEAN CORPUSCULAR HGB CONC 32.9 g/dl (32-36); MEAN PLATELET VOLUME 10.8 fL (7.4-10.4); PLATELET COUNT 124 K/uL (130-400); RED BLOOD COUNT 4.21 M/uL (4.2-5.4); WHITE BLOOD COUNT 6.85 K/uL (4.8-10.8)
[2016-05-20] MEDS: FERROUS SULFATE 325 MG TAB PO SCH (07:45)
[2016-05-20] MEDS: CHOLECALCIFEROL 1000 INTER.UNIT TAB PO SCH (07:45)
[2016-05-20] MEDS: HALOPERIDOL 0.5 MG TAB PO SCH (07:45)
[2016-05-20] MEDS: METOPROLOL TARTRATE 25 MG TAB PO SCH (07:45)
[2016-05-20] MEDS: ASPIRIN 81 MG ECTAB PO SCH (07:45)
[2016-05-20] MEDS: HEPARIN SOD 5000 UNIT/0.5 ML CARP SQ SCH (07:46)
[2016-05-20 13:37] VITALS: BP 176/89; PULSE 88; TEMP 36.6; O2SAT 95
[2016-06-08] MEDS ORDERED: RISP0.258 PO (14:43)
[2016-06-08] MEDS ORDERED: SODIENE PR (14:43)
[2016-06-08] MEDS ORDERED: ACET-1311 PO (14:43)
[2016-06-08] MEDS ORDERED: DULCOLAX SUPP RE (14:43)
[2016-06-08] MEDS ORDERED: MILK OF MAGN (14:46)
[2016-06-22] MEDS ORDERED: CIPR1TAB11 PO (09:36)
[2016-06-22] MEDS ORDERED: OXYC1TAB3 PO (13:59)
[2016-06-22] MEDS ORDERED: PHEN-775 PO (13:59)
[2016-08-20] MEDS ORDERED: MAGN400T6 PO (07:49)
[2016-08-20] MEDS ORDERED: ASPI81TA28 PO (08:35)
[2016-08-20] MEDS ORDERED: ATOR-22 PO (09:26)
[2016-08-20] MEDS ORDERED: CHOL20009 PO (09:26)
[2016-08-20] MEDS ORDERED: [UNRECOGNIZED DRUG - CODE] TOP (14:43)
[2016-08-20] MEDS ORDERED: MOML PO (14:46)
[2017-04-15] MEDS ORDERED: POLY335019 PO (11:05)
== END 2016-05-20 14:46 | DRG 884 ==
LOC: ENRESERVTM → ENRESERVDT → EDBD 07:40 → C.EDA 07:41 → C.2E 10:02 → C.MS2W 05-15 14:09
PROVIDERS: ADMIT Hospitalist; ATTEND Hospitalist
DX: F03.90 Unspecified dementia, unspecified severity, without behavioral disturbance, psychotic disturbance, mood disturbance, and anxiety (principal); R79.89 Other specified abnormal findings of blood chemistry; E83.42 Hypomagnesemia; N21.0 Calculus in bladder; N30.20 Other chronic cystitis without hematuria; I10 Essential (primary) hypertension; E78.5 Hyperlipidemia, unspecified; D50.9 Iron deficiency anemia, unspecified; F41.9 Anxiety disorder, unspecified; F32.9 Major depressive disorder, single episode, unspecified; I51.9 Heart disease, unspecified; Z66 Do not resuscitate; R29.6 Repeated falls; Z95.3 Presence of xenogenic heart valve; Z86.73 Personal history of transient ischemic attack (TIA), and cerebral infarction without residual deficits; Z86.718 Personal history of other venous thrombosis and embolism; Z87.440 Personal history of urinary (tract) infections; Z79.82 Long term (current) use of aspirin; Z79.899 Other long term (current) drug therapy

== ENCOUNTER → 2016-06-22 | Day surgery (SDC) | payer OTHER, BC ==
[2016-06-08 14:47] VITALS: BMI 26.0
--- NOTE | 2016-06-08 15:45 | PAT Medication Instructions ---
Service Date Jun 08, 2016. Current Home Medication List Acetaminophen (Tylenol), 325 MG PO Q6 PRN for Pain or Fever Aspirin (Aspirin Ec), 81 MG PO QAM Atorvastatin (Lipitor), 10 MG PO QPM Benzocaine (Dental) (Oral Pain Relief Maximum), 1 APPLN TOP UD Cholecalciferol (Vitamin D), 1 TAB PO QAM Coenzyme Q10 (Ubidecarenone) (Co Q10), 1 CAP PO QAM Ferrous Sulfate (Ferrous Sulfate), 325 MG PO QAM Magnesium Hydroxide (Milk Of Magnesia), 30 ML PO for Constipation Magnesium Oxide (Mag-Ox), 400 MG PO QPM Metoprolol Tartrate (Lopressor), 25 MG PO BID Nystatin (Topical) (Nystatin) Risperidone (Risperdal), 0.25 MG PO QAM Sodium Phosphate/Biphosphate (Fleet Enema), 1 EA SD DAILY PRN for Constipation [Dulcolax Supp], 1 DOSE RE for Constipation [Milk Of Magn] Medication Instructions For Your Scheduled Surgery Aspirin (Aspirin Ec), 81 MG PO QAM (per surgeon instructions) - Hold the following medications 2 weeks prior to surgery: Coenzyme Q10 (Ubidecarenone) (Co Q10), 1 CAP PO QAM - Hold the following medications the morning of surgery: Dulcolax Supp 1 DOSE RE for Constipation Milk Of Magn Sodium Phosphate/Biphosphate (Fleet Enema), 1 EA SD DAILY PRN for Constipation Nystatin (Topical) (Nystatin) Magnesium Hydroxide (Milk Of Magnesia), 30 ML PO for Constipation Ferrous Sulfate (Ferrous Sulfate), 325 MG PO QAM Cholecalciferol (Vitamin D), 1 TAB PO QAM Benzocaine (Dental) (Oral Pain Relief Maximum), 1 APPLN TOP UD - Take the following medications the morning of surgery with a sip of water: Risperidone (Risperdal), 0.25 MG PO QAM Metoprolol Tartrate (Lopressor), 25 MG PO BID Acetaminophen (Tylenol), 325 MG PO Q6 PRN for Pain or Fever (if needed) - Take the following medications as scheduled the night before surgery: Metoprolol Tartrate (Lopressor), 25 MG PO BID Magnesium Oxide (Mag-Ox), 400 MG PO QPM Atorvastatin (Lipitor), 10 MG PO QPM Acetaminophen (Tylenol), 325 MG PO Q6 PRN for Pain or Fever If you have any questions please call us at [phone] or [phone] ( [facility]) or [phone]
[2016-06-08 16:35] LABS: BASO % 0.2 %; BASO ABS # 0.02 K/uL (0-0.2); COMPLETE YES; EOS % 1.3 %; HEMATOCRIT 36.9 % (37-47); IG% 0.3 %; LYMPH % 15.3 %; LYMPH ABS # 1.34 K/uL (1.2-3.4); MEAN CELL VOLUME 87.9 fL (80-100); MEAN CORPUSCULAR HGB CONC 34.1 g/dl (32-36); MEAN PLATELET VOLUME 10.3 fL (7.4-10.4); MONO % 7.7 %; NEUT % 75.2 %; PLATELET COUNT 114 K/uL (130-400); WHITE BLOOD COUNT 8.78 K/uL (4.8-10.8)
[2016-06-08 17:02] LABS: BUN/CREATININE RATIO 30.3 (10-20); CALCIUM 9.4 mg/dl (8.5-10.1); POTASSIUM 4.7 mmol/L (3.5-5.1)
[~2016-06-22] VITALS: Ht 165.1 cm; Wt 72.7 kg
[~2016-06-22] MED LIST changes: +ACET-1311 PO; +ASPI81TA28 PO; +ATOR-22 PO; +ATROPINE SULFATE 0.1 MG/ML 5ML SYR IV PRN; +CHOL20009 PO; +CIPR1TAB11 PO; +CIPROFLOXACIN / D5W 400 MG IV SCH; +COEN100C11 PO; +CRAN1TAB PO; +DULCOLAX SUPP RE; +EpHEDrine SULFATE 50MG/5ML SYR ONE; +EpHEDrine SULFATE INJ 50 MG/ML AMP IV PRN; +FENTANYL CITRATE INJ 50 MCG/1 ML 2 ML VIAL IV PRN; +FENTANYL CITRATE INJ 50 MCG/1 ML 2 ML VIAL ONE; -FERR1TAB62 PO; +FERR325T PO; -HALO1TAB PO; -HLD1 PO; +HYDROmorphone INJ 1 MG/ML SYR IV PRN; +LABETALOL HCL IV 5 MG/ML 20ML IV PRN; +LACTATED RINGER'S 1000ML 1,000 ML IV SCH; +LIDOCAINE HCL 2% 2 ML VIAL (20MG/ML) ONE; +MAGN400T6 PO; +MEPERIDINE HCL 25 MG/ML CARP IV PRN; +METO25TA56 PO; +MILK OF MAGN; +MOML PO; +MRLP17X PO; -MTR500 PO; +NYST1POW7; +ONDANSETRON INJ 2 MG/ML 2 ML VIAL IV PRN; +ONDANSETRON INJ 2 MG/ML 2 ML VIAL ONE; +OXYC1TAB3 PO; +OXYCODONE/ACETAMINOPHEN 5-325 TAB PO PRN; +PHEN-775 PO; +PHENAZOPYRIDINE HCL 100 MG TAB PO PRN; +POLY335019 PO; +PRNJ PO; +PROPOFOL IV EMULSION 10 MG/ML 20 ML VIAL IV ONE; +RISP-99 PO; +RISP0.254 PO; +RISP0.258 PO; +SENNTAB23 PO; +SODIENE PR; +TOLT2TAB9 PO; +[UNRECOGNIZED DRUG - CODE] TOP
[2016-06-22 09:15] VITALS: BP 128/71; PULSE 61; TEMP 36.4; O2SAT 96; Ht 165.1 cm; Wt 72.7 kg
--- NOTE | 2016-06-22 09:40 | History & Physical Bridge Note ---
H&P Re-Evaluation Bridge Note: I have examined the patient, reviewed the History & Physical and in the interval since the performance of the History & Physical I have noted the following changes of clinical significance: No changes noted
--- NOTE | 2016-06-22 14:01 | Discharge Instructions ---
Discharge Instructions Admission Reason for Admission: Bladder Stone Discharge Discharge Diagnosis / Problem: Bladder stone s/p cystolithopaxy Discharge Goals Goal(s): Improve disease control, Therapeutic intervention Activity Recommendations Activity Limitations: per Instructions/Follow-up section Lifting Limitations: gradually increase as tolerated Exercise/Sports Limitations: rest today May Resume Sexual Activity: when tolerated Shower/Bathe: no limitations Driving or Machine Use: back to baseline function . Instructions / Follow-Up Instructions / Follow-Up Follow-up in office as scheduled. Complete Cipro x 3 days minimum Discharge Diet Recommended Diet: Regular Diet (good fluid intake) Procedures Procedures Performed: Laser Cystolithopaxy Pending Studies Studies pending at discharge: no Medical Emergencies . Who to Call and When: Medical Emergencies: If at any time you feel your situation is an emergency, please call 911 immediately. . Non-Emergent Contact Non-Emergency issues call your: Urologist Call Non-Emergent contact if: you have a fever, temperature is above 101, your pain is not controlled, your pain is worsening, your pain is unusual for you, your pain is concerning you, wound has increased pain, you have any medication questions . . "Provider Documentation" section prepared by Braulio Viveros. VTE Core Measure Inpt VTE Proph given/why not?: SCD's [place] Drug Monitoring Program Search Results: patient reviewed within database, no issues identified
--- NOTE | 2016-06-22 14:05 | [facility] Post Operative Brief Note ---
Immediate Operative Summary Operative Date Jun 22, 2016. Pre-Operative Diagnosis Bladder stone and recurrent urinary tract infection Post-Operative Diagnosis Same Procedure(s) Performed Laser Cystolithopaxy Surgeon Dr Braulio Viveros Mechanical Research Engineer Surgeon(s) None Estimated Blood Loss 0 cc Findings Large bladder stone fragmented into its entirety, no bladder injury Specimens Culture - Bladder urine sent at 1225 to lab A: bladder stone fragments Drains NA Anesthesia GALMA Complication(s) None Disposition Recovery Room / PACU
[2016-06-22 14:35] VITALS: BP 162/73; PULSE 63; TEMP 36; O2SAT 96
--- NOTE | 2016-06-22 14:36 | Anesthesiology Progress Note ---
Anesthesia Post Op Note Date & Time Jun 22, 2016 at 14:35 Vital Signs Pain Intensity: 0 Vital Signs Past 12 Hours Date Time Temp Pulse Resp B/P Pulse Ox O2 Delivery O2 Flow Rate FiO2 06/22/16 14:25 36.4 06/22/16 14:20 63 06/22/16 14:20 62 20 97 06/22/16 14:18 155/72 06/22/16 14:15 62 20 96 06/22/16 14:15 62 20 06/22/16 14:13 157/78 06/22/16 14:10 63 19 06/22/16 14:10 63 19 96 06/22/16 14:08 160/79 06/22/16 14:06 152/84 06/22/16 14:05 65 19 98 06/22/16 14:05 66 19 06/22/16 14:04 175/88 06/22/16 14:03 182/90 06/22/16 14:00 67 19 06/22/16 14:00 68 19 100 06/22/16 13:58 173/83 06/22/16 13:55 60 18 100 06/22/16 13:55 60 18 06/22/16 13:54 159/80 06/22/16 13:50 36.3 58 16 159/80 100 Mask 10 06/22/16 09:15 36.4 61 20 128/71 96 Room Air Notes Mental Status: alert / awake / arousable, participated in evaluation Pt Amnestic to Procedure: Yes Nausea / Vomiting: adequately controlled Pain: adequately controlled Airway Patency, RR, SpO2: stable & adequate BP & HR: stable & adequate Hydration State: stable & adequate Anesthetic Complications: no major complications apparent
[2016-06-22 15:05] VITALS: BP 166/74; PULSE 66; O2SAT 95
[2016-06-22 15:35] VITALS: BP 145/66; PULSE 64; TEMP 36; O2SAT 99
[2016-06-22 15:57] VITALS: BP 145/66; PULSE 64; TEMP 36; O2SAT 99
--- NOTE | 2016-06-22 21:58 | OPERATIVE REPORT ---
DATE OF OPERATION: 06/22/2016 PREOPERATIVE DIAGNOSES: Large bladder stone, recurrent urinary tract infections, voiding symptoms. POSTOPERATIVE DIAGNOSES: Same, estimated 3 x 2.5 cm bladder stone. PROCEDURE: Cystoscopy and laser cystolitholapaxy. SURGEON: Braulio Viveros MD DIRECTOR OF REVENUE: None. ANESTHESIA: General anesthesia with laryngeal mask. COMPLICATIONS: None. SPECIMENS SENT TO PATHOLOGY: Bladder stone fragments for chemical analysis. DRAINS LEFT IN PLACE: None. ESTIMATED BLOOD LOSS: Minimal. FINDINGS: Large bladder stone 2.5 x [address] scan imaging, fragmented with no residual and no evidence of bladder or ureteral injury. BRIEF HISTORY: Ms. Easley is a pleasant 80-year-old female, with history of a large bladder stone confirmed on both CT scan and cystoscopy. Seeing her difficulties with recurrent voiding symptoms and urinary tract infection she is here today for surgical management of her disease. Please see H\T\P for further details. She has been on a course of ciprofloxacin via her facility with another 3-4 day course planned as an outpatient per the patient's family. PROCEDURE: The patient was properly identified and brought to the operative suite. After identification of appropriate consent on the chart, general anesthesia with laryngeal mask was initiated and the patient was prepped and draped in standard fashion for this procedure. timekeeper-out procedure was followed. A 22-Swedish rigid cystoscope was passed into the bladder under direct visualization and a large bladder stone was noted as present on office cystoscopy. A minimal cystocele was present as well. Ureteral orifices were in the normal anatomic location. No other intravesical lesions noted. Using a 500 and then 1000 micron fiber after the 500 wore down for a total of 40 minutes of laser time at high amplitude and frequency the stone was fragmented into smaller and smaller pieces. The majority of the stone simply dusted and at the end larger fragments were grasped using a stent grasper to be removed per the urethra. Fragments were also irrigated free through a resectoscope sheath using a Jennifer syringe. After completion of thorough fragmentation and extraction of all visible specimens, a mildly irritated bladder was appreciated with no perforation or urothelial injury. No evidence of residual stone fragments was appreciated. No evidence of injury to the ureteral orifices was noted. After this was complete, bladder was drained, resectoscope was removed and anesthesia was reversed. The patient was transferred to recovery room in stable condition. FOLLOWUP CARE: The patient will be discharged back to our facility with a prescription of oxycodone and Pyridium. She is to complete her ciprofloxacin as planned. Instructions to contact our service should she note any fevers, chills, nausea, vomiting or other significant difficulties were provided. Postoperative appointment was confirmed. I attest to the content of the Intraoperative Record and any orders documented therein. Any exceptions are noted below. ABIEL
== END | disposition home or self-care (01) ==
LOC: C.ACU 08:34
PROVIDERS: ATTEND Urology
DX: N21.0 Calculus in bladder (principal); N39.0 Urinary tract infection, site not specified; R39.198 Other difficulties with micturition; F41.9 Anxiety disorder, unspecified; R41.82 Altered mental status, unspecified; R26.9 Unspecified abnormalities of gait and mobility; H91.90 Unspecified hearing loss, unspecified ear; Z95.1 Presence of aortocoronary bypass graft; Z98.890 Other specified postprocedural states

== ENCOUNTER → 2016-08-05 | Outpatient (CLI) | payer OTHER, BC ==
[~2016-08-05] MED LIST changes: -ATROPINE SULFATE 0.1 MG/ML 5ML SYR IV PRN; -CIPROFLOXACIN / D5W 400 MG IV SCH; -EpHEDrine SULFATE 50MG/5ML SYR ONE; -EpHEDrine SULFATE INJ 50 MG/ML AMP IV PRN; -FENTANYL CITRATE INJ 50 MCG/1 ML 2 ML VIAL IV PRN; -FENTANYL CITRATE INJ 50 MCG/1 ML 2 ML VIAL ONE; -HYDROmorphone INJ 1 MG/ML SYR IV PRN; -LABETALOL HCL IV 5 MG/ML 20ML IV PRN; -LACTATED RINGER'S 1000ML 1,000 ML IV SCH; -LIDOCAINE HCL 2% 2 ML VIAL (20MG/ML) ONE; -MEPERIDINE HCL 25 MG/ML CARP IV PRN; -MILK OF MAGN; -NYST1POW7; -ONDANSETRON INJ 2 MG/ML 2 ML VIAL IV PRN; -ONDANSETRON INJ 2 MG/ML 2 ML VIAL ONE; -OXYCODONE/ACETAMINOPHEN 5-325 TAB PO PRN; -PHEN-775 PO; -PHENAZOPYRIDINE HCL 100 MG TAB PO PRN; -PROPOFOL IV EMULSION 10 MG/ML 20 ML VIAL IV ONE
[2016-08-05 15:45] LABS: BASO % 0.4 %; BASO ABS # 0.03 K/uL (0-0.2); COMPLETE YES; EOS % 2.3 %; HEMATOCRIT 38.5 % (37-47); IG% 0.1 %; LYMPH % 28.5 %; LYMPH ABS # 2.08 K/uL (1.2-3.4); MEAN CELL VOLUME 85.7 fL (80-100); MEAN CORPUSCULAR HEMOGLOBIN 29.2 pg (25-34); MEAN PLATELET VOLUME 10.2 fL (7.4-10.4); MONO % 9.1 %; NEUT % 59.6 %; PLATELET COUNT 165 K/uL (130-400); RED BLOOD COUNT 4.49 M/uL (4.2-5.4); WHITE BLOOD COUNT 7.29 K/uL (4.8-10.8)
[2016-08-05 16:07] LABS: ALT/SGPT 14 U/L (12-78); BLOOD UREA NITROGEN 30 mg/dl (7-18); CALCIUM 9.2 mg/dl (8.5-10.1); CARBON DIOXIDE 28 mmol/L (21-32); CHLORIDE 104 mmol/L (98-107); CHOLESTEROL 140 mg/dl (0-200); GLUCOSE 168 mg/dl (70-99); POTASSIUM 4.1 mmol/L (3.5-5.1); SODIUM 141 mmol/L (136-145); TRIGLYCERIDES 134 mg/dl (0-150); VERY LOW DENSITY LIPOPROT CALC 27 mg/dl
[2016-08-05 16:10] LABS: ALB/GLOB RATIO 0.9 (0.9-2); ALKALINE PHOSPHATASE 95 U/L (45-117); AST/SGOT 15 U/L (15-37); CHOLESTEROL/HDL RATIO 2.3; HDL CHOLESTEROL 62 mg/dl; LDL CHOLESTEROL CALCULATED 51 mg/dl
--- NOTE | 2016-08-12 10:09 | CODING QUERY MEDICAL NECESSITY ---
SUPPORTING DIAGNOSIS NEEDED A supporting diagnosis is required for the test/procedure performed on this patient in order for us to be reimbursed by the patient's insurance. Please provide a supporting diagnosis for the following test/procedure listed below next to the test name along with your signature. *If there is no additional diagnosis for this patient that would support the following test/procedure please document that below next to the test/procedure. Test(s)/Procedure(s) that require a supporting diagnosis: DOS 08/05 * Vitamin B12 DIAGNOSIS: Provider Signature: Date: Thank you Ting Velazco Health Information Management Once completed, please kindly fax back to [phone] For questions please call [phone]
== END | disposition home or self-care (01) ==
LOC: C.LAB1850 14:50
PROVIDERS: ATTEND Internal Medicine
DX: R04.0 Epistaxis (principal); I10 Essential (primary) hypertension; E55.9 Vitamin D deficiency, unspecified; R41.89 Other symptoms and signs involving cognitive functions and awareness; R41.3 Other amnesia

== ENCOUNTER → 2016-08-17 | Outpatient (CLI) | payer OTHER, BC ==
[~2016-08-17] MED LIST changes: +CEPH-571 PO; +DICL1GEL12 TOP; +DOCU-94 PO; +FERR1TAB62 PO; -FERR325T PO; +LCTX PO; +LDDP5 EX; +LXP10 PO
[2016-08-17 10:19] LABS: BLOOD UREA NITROGEN 23 mg/dl (7-18); BUN/CREATININE RATIO 23.3 (10-20); CALCIUM 9.4 mg/dl (8.5-10.1); CARBON DIOXIDE 28 mmol/L (21-32); CHLORIDE 107 mmol/L (98-107); GLUCOSE 116 mg/dl (70-99); POTASSIUM 4.2 mmol/L (3.5-5.1); SODIUM 142 mmol/L (136-145)
[2016-08-17 10:59] LABS: ESTIMATED AVERAGE GLUCOSE 126 mg/dl; HA1C FLAG Normal (Normal)
== END | disposition home or self-care (01) ==
LOC: C.LAB1850 08:16
PROVIDERS: ATTEND Internal Medicine
DX: R73.9 Hyperglycemia, unspecified (principal)

== ENCOUNTER 2016-08-20 19:06 | Inpatient (IN) | payer OTHER, BC ==
[~2016-08-20] VITALS: Ht 152.4 cm; Wt 79.1 kg
[~2016-08-20 19:06] MED LIST changes: -CEPH-571 PO; -COEN100C11 PO; -CRAN1TAB PO; -DICL1GEL12 TOP; -DOCU-94 PO; -LCTX PO; -LDDP5 EX; -LXP10 PO; -METO25TA56 PO; -MRLP17X PO; -POLY335019 PO; -PRNJ PO; -RISP-99 PO; -RISP0.254 PO; -SENNTAB23 PO; -TOLT2TAB9 PO
--- NOTE | 2016-08-20 19:46 | DIAGNOSTIC IMAGING REPORT ---
CHEST ONE VIEW PORTABLE CLINICAL HISTORY: Atypical chest pain COMPARISON STUDY: 05/14/2016 FINDINGS: There are postsurgical changes of a midline sternotomy and valvular surgery. The heart is at the upper limits of normal in size. There is no failure. There is no lobar consolidation. There is mild basilar interstitial thickening. There is a right apical opacity which likely represents a summation as no abnormalities was identified in this location on the preceding study performed 3 months previously.[ IMPRESSION: AP portable study. Right apical opacity, likely representing a summation. Chronic basilar interstitial thickening. No acute parenchymal consolidation. No evidence of failure. Electronically signed by: Berny Diallo M.D. 08/20/2016 7:44 PM Dictated Date/Time: 08/20/2016 7:42 PM
[2016-08-20 19:59] LABS: BASO % 0.3 %; BASO ABS # 0.02 K/uL (0-0.2); COMPLETE YES; EOS % 2.5 %; HEMATOCRIT 36.8 % (37-47); IG% 0.1 %; LYMPH % 28.4 %; LYMPH ABS # 1.93 K/uL (1.2-3.4); MEAN CELL VOLUME 86.8 fL (80-100); MEAN CORPUSCULAR HEMOGLOBIN 29.5 pg (25-34); MEAN PLATELET VOLUME 10.1 fL (7.4-10.4); MONO % 11.2 %; NEUT % 57.5 %; PLATELET COUNT 147 K/uL (130-400); RED BLOOD COUNT 4.24 M/uL (4.2-5.4)
[2016-08-20 20:14] LABS: BLOOD UREA NITROGEN 29 mg/dl (7-18); BUN/CREATININE RATIO 28.8 (10-20); CALCIUM 8.6 mg/dl (8.5-10.1); CARBON DIOXIDE 27 mmol/L (21-32); CHLORIDE 104 mmol/L (98-107); GLUCOSE 175 mg/dl (70-99); POTASSIUM 3.9 mmol/L (3.5-5.1); SODIUM 140 mmol/L (136-145)
[2016-08-20] MEDS ORDERED: ACET-1311 PO (20:24)
[2016-08-20] MEDS ORDERED: RISP-99 PO (20:24)
[2016-08-20] MEDS ORDERED: RISP0.254 PO (20:24)
[2016-08-20] MEDS ORDERED: METO25TA56 PO (20:24)
[2016-08-20] MEDS ORDERED: SENNTAB23 PO (20:26)
[2016-08-20] MEDS ORDERED: PRNJ PO (20:26)
[2016-08-20] MEDS ORDERED: OPTIRAY 320 IV PRN (20:45)
--- NOTE | 2016-08-20 21:03 | DIAGNOSTIC IMAGING REPORT ---
CT ANGIOGRAM OF THE CHEST CLINICAL HISTORY: Atypical chest pain COMPARISON STUDY: Chest x-ray dated 08/20/2016 TECHNIQUE: Following the IV administration of 117 mL of Optiray-320, CT angiogram of the thorax was performed from the thoracic inlet to the lung bases utilizing the pulmonary embolus protocol. Images are reviewed in the axial, sagittal, and coronal planes. IV contrast was administered without complication. MIP imaging was performed. CT DOSE: 316.42 mGy.cm FINDINGS: Hilar lymph nodes are the upper limits of normal in size. There is no pathologic mediastinal or axillary lymphadenopathy. The heart is enlarged area There was no evidence of thoracic aortic dilatation. There were no pulmonary artery filling defects to indicate acute pulmonary embolism. No pleural effusions are visualized. There is significant respiratory motion artifact. There is no focal pulmonary consolidation. There are dependent atelectatic changes. IMPRESSION: 1. Study compromised secondary to respiratory motion artifact 2. No CT evidence of acute pulmonary embolism 3. No evidence of focal pulmonary consolidation Electronically signed by: Berny Diallo M.D. 08/20/2016 9:01 PM Dictated Date/Time: 08/20/2016 8:57 PM
[2016-08-20] MEDS ORDERED: ALUMINUM/MAGNESIUM/SIMETH (MAALOX MAX) 30 ML UDC PO PRN (22:30)
[2016-08-20] MEDS ORDERED: POLYETHYLENE (MIRALAX) 17 GM PACK PO PRN (22:30)
[2016-08-20] MEDS ORDERED: ACETAMINOPHEN 325 MG TAB PO PRN ×2 (22:30)
[2016-08-20] MEDS ORDERED: MAGNESIUM HYDROXIDE SUSP 30 ML UDC PO PRN ×2 (22:30)
[2016-08-20] MEDS ORDERED: DOCUSATE SODIUM/SENNA 50/8.6MG TAB PO PRN (22:30)
[2016-08-20] MEDS ORDERED: ONDANSETRON INJ 2 MG/ML 2 ML VIAL IV PRN (22:30)
[2016-08-20] MEDS ORDERED: PATIENT'S HEIGHT AND/OR WEIGHT NEEDED SCH (23:30)
[2016-08-21 00:17] VITALS: BP 154/80; PULSE 62; TEMP 36.3; O2SAT 96; Ht 152.4 cm; Wt 79.1 kg
--- NOTE | 2016-08-21 01:10 | EMERGENCY ROOM VISIT NOTE ---
History Report prepared by Savita: Nathaly Jordan Under the Supervision of: Dr. Joey Lee D.O. First contact with patient: 19:18 Chief Complaint: CHEST PAIN Stated Complaint: CHEST PAIN History of Present Illness The patient is a 80 year old female who presents to the Emergency Room with complaints of resolved sharp left sided chest pain beginning 30 minutes ago. The patient's daughter notes that the patient has dementia and has a history of uterine cancer, open heart surgery 2 years ago, and 2 strokes. The patient states that the pain started when she was sitting down and it was hard to take a breath. She complains of shortness of breath and has now gone away. She denies any nausea, vomiting, diarrhea, asthma history, COPD history, blood thinners. The daughter states that she has trouble with constipation. Source of History: patient, family Onset: 30 minutes ago Position: chest (left) Quality: sharp Timing: resolved Associated Symptoms: + SOB, No diarrhea, No nausea, No vomiting Review of Systems See HPI for pertinent positives & negatives. A total of 10 systems reviewed and were otherwise negative. Past Medical & Surgical Medical Problems: (1) Anxiety (2) Aortic stenosis (3) blood clots (4) Chest pain (5) Confusion (6) CVA (7) Depressive disorder, not elsewhere classified (8) Diabetes (9) Heart disease (10) History of - tubal ligation (11) Hypertension (12) Kidney stone (13) stomach problems (14) Stroke (15) Thumb laceration (16) Weakness Surgical Problems: (1) H/O: hysterectomy Family History Diabetes mellitus FH: heart disease Hypertension Social History Smoking Status: Never Smoker Alcohol Use: none Marital Status: Housing Status: lives with family Occupation Status: retired Current/Historical Medications Scheduled Aspirin (Aspirin Ec), 81 MG PO QAM Atorvastatin (Lipitor), 10 MG PO QPM Benzocaine (Dental) (Oral Pain Relief Maximum), 1 APPLN TOP UD Cholecalciferol (Vitamin D), 1 TAB PO QAM Magnesium Oxide (Mag-Ox), 400 MG PO QPM Metoprolol Tartrate (Lopressor) (Lopressor), 25 MG PO DAILY Prune Juice (Prune Juice ), 1 DOSE PO PRN Risperidone (Risperidone), 0.25 MG PO BID Risperidone (Risperidone), 0.5 MG PO HS Scheduled PRN Acetaminophen (Tylenol), 650 MG PO Q4 PRN for Pain Magnesium Hydroxide (Milk Of Magnesia), 30 ML PO for Constipation Sennosides-Docusate Sodium (Stool Softener), 1 TAB PO BID PRN for Constipation Allergies Coded Allergies: Enalapril (Unverified Allergy, Unknown, Unknown, 08/20/16) Escitalopram (Unverified Adverse Reaction, Unknown, Hallucinations, 08/20/16 ) Physical Exam Vital Signs Date Time Temp Pulse Resp B/P Pulse Ox O2 Delivery O2 Flow Rate FiO2 08/20/16 22:03 59 18 126/64 95 Room Air 08/20/16 20:09 59 18 112/59 95 Room Air 08/20/16 20:01 96 Room Air 08/20/16 19:23 66 08/20/16 19:08 36.4 73 20 126/72 96 Room Air Physical Exam GENERAL: chronically ill appearing, no acute distress, sitting up in bed EYE EXAM: normal conjunctiva OROPHARYNX: no exudate, no erythema, lips, buccal mucosa, and tongue normal and mucous membranes are moist NECK: supple, no nuchal rigidity, no adenopathy, non-tender LUNGS: Clear to auscultation. Normal chest wall mechanics HEART: no murmurs, S1 normal and S2 normal CHEST: Reproducible anterior chest wall pain. ABDOMEN: abdomen soft, non-tender, normo-active bowel sounds, no masses, no rebound or guarding. BACK: Back is symmetrical on inspection and there is no deformity, no midline tenderness, no CVA tenderness. SKIN: no rashes and no bruising UPPER EXTREMITIES: upper extremities are grossly normal. LOWER EXTREMITIES: No pitting edema. Calves are equal bilaterally. NEURO EXAM: awake, oriented to person and place but not near, cranial nerves II -XII grossly intact, normal speech, no gross weakness of arms, no gross weakness of legs. Medical Decision & Procedures ER Provider Diagnostic Interpretation: Radiology results as stated below per my review and the radiologist's interpretation: CHEST ONE VIEW PORTABLE FINDINGS: There are postsurgical changes of a midline sternotomy and valvular surgery. The heart is at the upper limits of normal in size. There is no failure. There is no lobar consolidation. There is mild basilar interstitial thickening. There is a right apical opacity which likely represents a summation as no abnormalities was identified in this location on the preceding study performed 3 months previously.[ IMPRESSION: AP portable study. Right apical opacity, likely representing a summation. Chronic basilar interstitial thickening. No acute parenchymal consolidation. No evidence of failure. Electronically signed by: Berny Diallo M.D. 08/20/2016 7:44 PM Dictated Date/Time: 08/20/2016 7:[address] ANGIOGRAM OF THE CHEST FINDINGS: Hilar lymph nodes are the upper limits of normal in size. There is no pathologic mediastinal or axillary lymphadenopathy. The heart is enlarged area There was no evidence of thoracic aortic dilatation. There were no pulmonary artery filling defects to indicate acute pulmonary embolism. No pleural effusions are visualized. There is significant respiratory motion artifact. There is no focal pulmonary consolidation. There are dependent atelectatic changes. IMPRESSION: 1. Study compromised secondary to respiratory motion artifact 2. No CT evidence of acute pulmonary embolism 3. No evidence of focal pulmonary consolidation Electronically signed by: Berny Diallo M.D. 08/20/2016 9:01 PM Dictated Date/Time: 08/20/2016 8:57 PM Laboratory Results 08/20/16 19:40 Red Blood Count 4.24, Mean Corpuscular Volume 86.8, Mean Corpuscular Hemoglobin 29.5, Mean Corpuscular Hemoglobin Concent 34.0, Mean Platelet Volume 10.1, Neutrophils (%) (Auto) 57.5, Lymphocytes (%) (Auto) 28.4, Monocytes (%) (Auto) 11.2, Eosinophils (%) (Auto) 2.5, Basophils (%) (Auto) 0.3, Neutrophils # (Auto ) 3.91, Lymphocytes # (Auto) 1.93, Monocytes # (Auto) 0.76, Eosinophils # (Auto ) 0.17, Basophils # (Auto) 0.02 08/20/16 19:40 Test 08/20/16 19:40 White Blood Count 6.80 K/uL (4.8-10.8) Red Blood Count 4.24 M/uL (4.2-5.4) Hemoglobin 12.5 g/dL (12.0-16.0) Hematocrit 36.8 % (37-47) Mean Corpuscular Volume 86.8 fL (80-100) Mean Corpuscular Hemoglobin 29.5 pg (25-34) Mean Corpuscular Hemoglobin Concent 34.0 g/dl (32-36) Platelet Count 147 K/uL (130-400) Mean Platelet Volume 10.1 fL (7.4-10.4) Neutrophils (%) (Auto) 57.5 % Lymphocytes (%) (Auto) 28.4 % Monocytes (%) (Auto) 11.2 % Eosinophils (%) (Auto) 2.5 % Basophils (%) (Auto) 0.3 % Neutrophils # (Auto) 3.91 K/uL (1.4-6.5) Lymphocytes # (Auto) 1.93 K/uL (1.2-3.4) Monocytes # (Auto) 0.76 K/uL (0.11-0.59) Eosinophils # (Auto) 0.17 K/uL (0-0.5) Basophils # (Auto) 0.02 K/uL (0-0.2) RDW Standard Deviation 44.1 fL (36.4-46.3) RDW Coefficient of Variation 13.8 % (11.5-14.5) Immature Granulocyte % (Auto) 0.1 % Immature Granulocyte # (Auto) 0.01 K/uL (0.00-0.02) D-Dimer 4760 ug/L FEU (0-500) Anion Gap 9.0 mmol/L (3-11) Estimated GFR () 62.1 Estimated GFR (Non- 53.5 BUN/Creatinine Ratio 28.8 (10-20) Calcium Level 8.6 mg/dl (8.5-10.1) Total Creatine Kinase 56 U/L (26-192) Creatine Kinase MB 1.7 ng/ml (0.5-3.6) Creatine Kinase MB Ratio 3.0 (0-3.0) Troponin I < 0.015 ng/ml (0-0.045) Laboratory results per my review. ECG Indication: chest pain Rate (beats per minute): 68 Rhythm: sinus rhythm Findings: LBBB, left axis deviation Comparison ECG Date: 14-MAY-2016 Change: Improvement of ST wave changes in lateral leads. ED Course ED COURSE: Vital signs were reviewed and showed bradycardia The patients medical record was reviewed The above diagnostic studies were performed and reviewed. ED treatments and interventions as stated above. 1929: The patient was evaluated in room A4B. A complete history and physical examination was performed. 2326: I reviewed the patient's case with Dr. Santos. He will evaluate the patient for further management. 2337: Upon reevaluation, the patient is hemodynamically stable. I discussed my findings with the patient and she understands and agrees with the treatment plan. Based on the patients age, coexisting illnesses, exam and lab findings the decision to treat as an inpatient was made. The patient remained stable while under my care. The patient will be evaluated for further management. Medical Decision Differential diagnoses includes but is not limited to acute coronary syndrome, myocardial infarction, pericarditis, pulmonary embolus, aortic dissection, pneumonia, pneumothorax, musculoskeletal, shingles, esophageal. Patient is a 80-year-old female with a history of dementia that presents the ER for chest pain and shortness of breath. Currently she has no complaints. EKG was nondiagnostic. CBC along with BMP and troponin were negative. D-dimer was positive and with her history of cancer CT PE was performed and was normal. Patient family were updated in regards to this. Patient had no pain upon arrival. This does not appear to be cardiac. The history is difficult to obtain as she does have dementia. With her history of bypass I felt was reasonable to observe her overnight. Consults Time Called: [phone] Consulting Physician: Dr. Santos Returned Call: [phone] I reviewed the patient's case with Dr. Santos. He will evaluate the patient for further management. Impression Primary Impression: Precordial chest pain Scribe Attestation The scribe's documentation has been prepared under my direction and personally reviewed by me in its entirety. I confirm that the note above accurately reflects all work, treatment, procedures, and medical decision making performed by me. Departure Information Dispostion Being Evaluated By Hospitalist RV. Simmons MD (PCP) Patient Instructions My [facility]
--- NOTE | 2016-08-21 01:10 | History and Physical ---
History & Physical Date & Time of Service: Aug 21, 2016 at 01:04 Chief Complaint: Chest Pain Primary Care Physician: RV. Orourke MD History of Present Illness Source: patient This is a 80 y/o F with a PMHx of CVA x 2, DM, Aortic valve replacement, Uterine cancer s/p hysterectomy and chemo, Anemia, DLD, anxiety who presents with chest pain. She and her family report that her pain started this afternoon in her left chest, was a 9/10 and lasted a few minutes. She had some associated shortness of breath. She also has constipation. Otherwise review of systems is negative. Currently she has no chest pain or shortness of breath. Past Medical/Surgical History Medical Problems: (1) Anxiety Status: Chronic (2) Aortic stenosis Status: Chronic (3) blood clots Status: Chronic (4) CVA Status: Resolved (5) Diabetes Status: Chronic (6) Heart disease Status: Chronic (7) History of - tubal ligation Status: Resolved (8) Hypertension Status: Chronic (9) Kidney stone Status: Chronic (10) stomach problems Status: Chronic (11) Stroke Status: Chronic (12) Thumb laceration Status: Resolved Surgical Problems: (1) H/O: hysterectomy Status: Resolved Family History Diabetes mellitus FH: heart disease Hypertension Social History Smoking Status: Never Smoker Alcohol Use: none Drug Use: none Marital Status: Housing status: lives with family Occupational Status: retired Immunizations History of Influenza Vaccine: Yes Influenza Vaccine Date: Apr 01, 2011 History of Tetanus Vaccine?: utd Tetanus Immunization Date: Mar 30, 2009 History of Pneumococcal: Yes Pneumococcal Date: Apr 02, 2011 History of Hepatitis B Vaccine: Unknown Multi-Drug Resistant Organisms History of MDRO: No Allergies Coded Allergies: Enalapril (Unverified Allergy, Unknown, Unknown, 08/20/16) Escitalopram (Unverified Adverse Reaction, Unknown, Hallucinations, 08/20/16 ) Home Medications Scheduled Aspirin (Aspirin Ec), 81 MG PO QAM Atorvastatin (Lipitor), 10 MG PO QPM Benzocaine (Dental) (Oral Pain Relief Maximum), 1 APPLN TOP UD Cholecalciferol (Vitamin D), 1 TAB PO QAM Magnesium Oxide (Mag-Ox), 400 MG PO QPM Metoprolol Tartrate (Lopressor), 12.5 MG PO BID Prune Juice (Prune Juice ), 1 DOSE PO PRN Risperidone (Risperidone), 0.25 MG PO BID Risperidone (Risperidone), 0.5 MG PO HS Scheduled PRN Acetaminophen (Tylenol), 650 MG PO Q4 PRN for Pain Magnesium Hydroxide (Milk Of Magnesia), 30 ML PO for Constipation Polyethylene (Miralax), 17 GM PO DAILY PRN for Constipation Sennosides-Docusate Sodium (Stool Softener), 1 TAB PO BID PRN for Constipation Review of Systems Constitutional: No chills, No fatigue, No fever, No sweats, No weakness ENT: + hearing loss Respiratory: + shortness of breath, No cough, No dyspnea at rest, No dyspnea on exertion, No sputum, No wheezing Cardiovascular: + chest pain, No PND, No edema, No orthopnea Abdomen: + constipation, No diarrhea, No nausea, No pain, No vomiting Genitourinary - Female: + urinary frequency, + urinary incontinence, + urinary urgency Physical Exam Vital Signs Date Time Temp Pulse Resp B/P Pulse Ox O2 Delivery O2 Flow Rate FiO2 08/21/16 00:17 36.3 62 20 154/80 96 Room Air 08/20/16 23:24 79 18 156/54 97 Room Air 08/20/16 22:03 59 18 126/64 95 Room Air 08/20/16 20:09 59 18 112/59 95 Room Air 08/20/16 20:01 96 Room Air 08/20/16 19:23 66 08/20/16 19:08 36.4 73 20 126/72 96 Room Air General Appearance: no apparent distress Eyes: PERRL, EOMI ENT: hearing grossly normal Neck: supple, no adenopathy Respiratory/Chest: lungs clear, normal breath sounds, no respiratory distress, no accessory muscle use Cardiovascular: regular rate, rhythm, no edema, no JVD, + systolic murmur Abdomen/GI: normal bowel sounds, non tender, soft Back: no CVA tenderness Extremities/Musculoskelatal: no calf tenderness, no pedal edema Neurologic/Psych: cardiopulmonary specialist II-XII nml as tested, no motor/sensory deficits, + pertinent finding (pleasantly confused- at baseline per family) Diagnostics Laboratory Results Results Past 24 Hours Test 08/20/16 19:40 Range/Units White Blood Count 6.80 4.8-10.8 K/uL Red Blood Count 4.24 4.2-5.4 M/uL Hemoglobin 12.5 12.0-16.0 g/dL Hematocrit 36.8 37-47 % Mean Corpuscular Volume 86.8 80-100 fL Mean Corpuscular Hemoglobin 29.5 25-34 pg Mean Corpuscular Hemoglobin Concent 34.0 32-36 g/dl Platelet Count 147 130-400 K/uL Mean Platelet Volume 10.1 7.4-10.4 fL Neutrophils (%) (Auto) 57.5 % Lymphocytes (%) (Auto) 28.4 % Monocytes (%) (Auto) 11.2 % Eosinophils (%) (Auto) 2.5 % Basophils (%) (Auto) 0.3 % Neutrophils # (Auto) 3.91 1.4-6.5 K/uL Lymphocytes # (Auto) 1.93 1.2-3.4 K/uL Monocytes # (Auto) 0.76 0.11-0.59 K/uL Eosinophils # (Auto) 0.17 0-0.5 K/uL Basophils # (Auto) 0.02 0-0.2 K/uL RDW Standard Deviation 44.1 36.4-46.3 fL RDW Coefficient of Variation 13.8 11.5-14.5 % Immature Granulocyte % (Auto) 0.1 % Immature Granulocyte # (Auto) 0.01 0.00-0.02 K/uL D-Dimer 4760 0-500 ug/L FEU Sodium Level 140 136-145 mmol/L Potassium Level 3.9 3.5-5.1 mmol/L Chloride Level 104 98-107 mmol/L Carbon Dioxide Level 27 21-32 mmol/L Anion Gap 9.0 3-11 mmol/L Blood Urea Nitrogen 29 7-18 mg/dl Creatinine 1.00 0.60-1.20 mg/dl Estimated GFR () 62.1 Estimated GFR (Non- 53.5 BUN/Creatinine Ratio 28.8 10-20 Random Glucose 175 70-99 mg/dl Calcium Level 8.6 8.5-10.1 mg/dl Total Creatine Kinase 56 26-192 U/L Creatine Kinase MB 1.7 0.5-3.6 ng/ml Creatine Kinase MB Ratio 3.0 0-3.0 Troponin I < 0.015 0-0.045 ng/ml Impression Assessment and Plan Chest pain rule out Troponin x 3 Will hold on ECHO- done in April D-Dimer was elevated, Chest CTA negative for PE- could consider V/Q scan due to motion artifact hemodynamically stable Could be from her cancer? no recent travel No Calf tenderness No changes noted on EKG CAD Continue Aspirin, lipitor and metoprolol (change metoprolol to BID dosing) Anemia: Hold Ferrous Sulfate 325 mg due to constipation Constipation Senna, miralax, milk of mag Dementia Continue Risperidal DVT prophylaxis: Lovenox Code Status: Would like to try chest compressions/defibrillation and mech. ventillation temporarily but would not want reece on machines senior living. Advanced Directives Existing Living Will: Yes Existing Power of Film Touch Up Inspector: Yes VTE Prophylaxis VTE Risk Assessment Done? Y/N: Yes Risk Level: Moderate Assessment and Plan Attending Addendum: I have physically seen and examined this patient, have directed their medical care, have supervised the medical residents activities, and agree with the H&P as noted above, with the following changes: NONE
[2016-08-21 03:35] LABS: PROTHROMBIN TIME (PATIENT) 10.5 SECONDS (9.0-12.0)
[2016-08-21 04:10] VITALS: BP 172/69; PULSE 54; TEMP 36.5; O2SAT 98
[2016-08-21 07:55] VITALS: BP 165/71; PULSE 62; TEMP 36.9; O2SAT 97
[2016-08-21] MEDS: RISPERIDONE 0.5 MG TAB PO SCH ×2 (08:39→11:32)
[2016-08-21] MEDS ORDERED: ENOXAPARIN 40 MG/0.4 ML SYR SC SCH (09:00)
[2016-08-21] MEDS ORDERED: METOPROLOL TARTRATE 25 MG TAB PO SCH ×2 (09:00)
[2016-08-21] MEDS ORDERED: ASPIRIN 81 MG ECTAB PO SCH (09:00)
[2016-08-21] MEDS ORDERED: LPR25 PO (12:25)
[2016-08-21] MEDS ORDERED: MRLP17X PO (12:25)
--- NOTE | 2016-08-21 12:34 | Discharge Instructions ---
Discharge Instructions Date of Service Aug 21, 2016. Admission Reason for Admission: Chest Pain Discharge Discharge Diagnosis / Problem: Chest Pain Discharge Goals Goal(s): Decrease discomfort, Improve function, Increase independence Activity Recommendations Activity Limitations: resume your previous activity . Instructions / Follow-Up Instructions / Follow-Up Chest Pain: - Chest pain does not appear to be heart related. - Heart rhythm was monitored and EKG (checks electrical activity of the heart) did not show new findings suggesting acute heart issues - Cardiac enzymes were obtained (this evaluates for heart damage due to lack of oxygen/demand) - these have all remained negative - Question more of a GI component as she has not had a bowel movement in 3 days and may be related to gas pain - Continue your normal bowel regimen at home and will give a prescription for Miralax with some recommendations It is safe to use up to four doses of Miralax a day and would adjust based on bowel movements. -- Given you have not had a bowel movement in 3 days - try more frequent dosing today -- If you still have not had a bowel movement continue this -- If bowel movements become more loose you can stop or reduce the frequency of dosing Miralax is a medication that does not get absorbed into the bloodstream and simply helps move stool around and is safe to use more than once a day Only caution would be to reduce dosing if diarrhea occurs to prevent dehydration Follow-Up: - A follow-up appointment has been set with your family doctor for August 31, 2016 at 11:40 AM Current Hospital Diet Patient's current hospital diet: AHA Diet (Heart Healthy) Discharge Diet Recommended Diet: AHA Diet (Heart Healthy) Pending Studies Studies pending at discharge: no Laboratory Results Hemoglobin A1c Test 08/17/16 08:20 Range/Units Estimated Average Glucose 126 mg/dl Hemoglobin A1c 6.0 H 4.5-5.6 % Lipid Panel Test 08/05/16 14:55 Range/Units Triglycerides Level 134 0-150 mg/dl Cholesterol Level 140 0-200 mg/dl HDL Cholesterol 62 mg/dl Cholesterol/HDL Ratio 2.3 LDL Cholesterol, Calculated 51 mg/dl Medical Emergencies . Who to Call and When: Medical Emergencies: If at any time you feel your situation is an emergency, please call 911 immediately. . Non-Emergent Contact Non-Emergency issues call your: Primary Care Provider Call Non-Emergent contact if: you have a fever, your pain is concerning you, you have any medication questions . . "Provider Documentation" section prepared by Alida Herring. VTE Core Measure Inpt VTE Proph given/why not?: Enoxaparin (Lovenox)SQ
[2016-08-21 12:50] VITALS: BP 123/69; PULSE 65; TEMP 36.4; O2SAT 95
[2016-08-21 13:24] VITALS: BP_SYST 123; BP_SYST 165; BP_DIAS 69; BP_DIAS 71; PULSE 62; PULSE 65; TEMP 36.4; TEMP 36.9; O2SAT 95; O2SAT 97
--- NOTE | 2016-08-21 15:11 | Discharge Summary ---
Discharge Summary Date of Service Aug 21, 2016. (Alida Herring PA-C) Discharge Summary Admission Date: Aug 20, 2016 at 22:33 Discharge Date: Aug 21, 2016 Discharge Disposition: Home Principal Diagnosis: Chest Pain Problems/Secondary Diagnoses: Medical Problems: (1) Anxiety (2) Aortic stenosis (3) blood clots (4) Chest pain (5) Confusion (6) CVA (7) Depressive disorder, not elsewhere classified (8) Diabetes (9) Heart disease (10) History of - tubal ligation (11) Hypertension (12) Kidney stone (13) stomach problems (14) Stroke (15) Thumb laceration (16) Weakness Surgical Problems: (1) H/O: hysterectomy Immunizations: Have You Had Influenza Vaccine: Yes Influenza Vaccine Date: Apr 01, 2011 History of Tetanus Vaccine?: utd Tetanus Immunization Date: Mar 30, 2009 History of Pneumococcal: Yes Pneumococcal Date: Apr 02, 2011 History of Hepatitis B Vaccine: Unknown Procedures: 1. CHEST ONE VIEW PORTABLE CLINICAL HISTORY: Atypical chest pain COMPARISON STUDY: 05/14/2016 FINDINGS: There are postsurgical changes of a midline sternotomy and valvular surgery. The heart is at the upper limits of normal in size. There is no failure. There is no lobar consolidation. There is mild basilar interstitial thickening. There is a right apical opacity which likely represents a summation as no abnormalities was identified in this location on the preceding study performed 3 months previously.[ IMPRESSION: AP portable study. Right apical opacity, likely representing a summation. Chronic basilar interstitial thickening. No acute parenchymal consolidation. No evidence of failure. 2. CT ANGIOGRAM OF THE CHEST CLINICAL HISTORY: Atypical chest pain COMPARISON STUDY: Chest x-ray dated 08/20/2016 TECHNIQUE: Following the IV administration of 117 mL of Optiray-320, CT angiogram of the thorax was performed from the thoracic inlet to the lung bases utilizing the pulmonary embolus protocol. Images are reviewed in the axial, sagittal, and coronal planes. IV contrast was administered without complication. MIP imaging was performed. CT DOSE: 316.42 mGy.cm FINDINGS: Hilar lymph nodes are the upper limits of normal in size. There is no pathologic mediastinal or axillary lymphadenopathy. The heart is enlarged area There was no evidence of thoracic aortic dilatation. There were no pulmonary artery filling defects to indicate acute pulmonary embolism. No pleural effusions are visualized. There is significant respiratory motion artifact. There is no focal pulmonary consolidation. There are dependent atelectatic changes. IMPRESSION: 1. Study compromised secondary to respiratory motion artifact 2. No CT evidence of acute pulmonary embolism 3. No evidence of focal pulmonary consolidation (Alida Herring, PA-C) Medication Reconciliation New Medications: Metoprolol Tartrate (Lopressor) 25 Mg Tab 12.5 MG PO BID for 30 Days, #30 TAB Polyethylene (Miralax) 17 Gm Pow 17 GM PO DAILY PRN for Constipation for 30 Days Continued Medications: Acetaminophen (Tylenol) 325 Mg Tab 650 MG PO Q4 PRN for Pain, TAB Aspirin (Aspirin Ec) 81 Mg Tab 81 MG PO QAM Restart in 3 days if urine clear Atorvastatin (Lipitor) 20 Mg Tab 10 MG PO QPM, TAB Benzocaine (Dental) (Oral Pain Relief Maximum) 20 % Liq 1 APPLN TOP UD Cholecalciferol (Vitamin D) 2,000 Unit Tab 1 TAB PO QAM Magnesium Hydroxide (Milk Of Magnesia) 30 Ml Susp 30 ML PO PRN for Constipation, ML Magnesium Oxide (Mag-Ox) 400 Mg Tab 400 MG PO QPM, TAB Prune Juice (Prune Juice ) Liqd 1 DOSE PO PRN for Constipation Risperidone (Risperidone) 0.25 Mg Tab 0.25 MG PO BID, #90 TAKE WITH BREAKFAST & LUNCH Risperidone (Risperidone) 0.5 Mg Tab 0.5 MG PO HS, #75 Sennosides-Docusate Sodium (Stool Softener) 1 Tab Tab 1 TAB PO BID PRN for Constipation Discontinued Medications: Metoprolol Tartrate (Lopressor) (Lopressor) 25 Mg Tab 25 MG PO DAILY, TAB Discharge Exam REVIEW OF SYSTEMS: General/Constitutional: Denies fever/chills, fatigue, weakness ENT: Denies visual changes, nasal drainage, hearing loss, sore throat, trouble swallowing Cardiovascular: Denies chest pain, palpitations, edema Respiratory: Denies cough, sputum, SOB, wheezing, orthopnea GI: + Constipation; Denies nausea, vomiting, abdominal pain, diarrhea, melena/ hematochezia : Denies dysuria, frequency, hematuria Musculoskeletal: Denies joint/muscle aches, weakness, swelling Neurologic: Denies dizziness/lightheadedness, numbness/tingling, weakness Psychiatric: +Dementia Endocrine: Deferred Hematologic/Lymphatic: Denies bleeding/clotting abnormalities Skin: Denies rash, itch, new skin changes, easy bruising Allergy/Immunologic: Deferred PHYSICAL EXAM:: General Appearance: WDWN in NAD who is intermittently confused and a poor historian 2/2 dementia HEENT: Head is normocephalic/atraumatic; EOMI; PERRLA; Hearing grossly intact; Mucous membranes moist; Pharynx negative for exudate/lesions Neck: Supple; Trachea midline; Neg JVD; Neg lymphadenopathy Heart: RRR with systolic murmur with no G/R Lungs: CTA in all lung tate bilaterally but diminished; Respirations unlabored ; Neg accessory muscle use Abdomen: Soft, non-tender, non-distended; Positive BS x 4 quadrants; Neg organomegaly Extremities: Capillary refill < 2 seconds; Neg cyanosis or edema Neurological: Speech clear; Gross motor/sensory function intact; Neg focal neurologic deficits Psychiatric: Appropriate mood, flat affect Skin: Normal Color; Warm/Dry (Alida Herring, ELISE) Hospital Course ADMISSION: This is a 80 y/o F with a PMHx of CVA x 2, DM, Aortic valve replacement, Uterine cancer s/p hysterectomy and chemo, Anemia, DLD, anxiety who presents with chest pain. She and her family report that her pain started this afternoon in her left chest, was a 9/10 and lasted a few minutes. She had some associated shortness of breath. She also has constipation. Otherwise review of systems is negative. Currently she has no chest pain or shortness of breath. HOSPITAL COURSE: Ms. Easley was admitted for cardiac monitoring in the setting of chest pain. Patient is largely a poor historian given her dementia. Did discuss with patient's daughter Raquel. Patient had one episode of sharp left-sided chest pain that spontaneously resolved without intervention. This chest pain has not reoccurred. She did have associated shortness of breath at the time of the pain but has no further complaints at this time. Patient was admitted to telemetry for rhythm monitoring which revealed normal sinus rhythm with occasional sinus bradycardia. Cardiac enzymes 4 were negative. Only complaint of the patient is of constipation. Patient cannot give details. She does live at home with her two daughters. According to the daughters, patient has ongoing issues with constipation and last bowel movement was 3 days ago. Suspect that this atypical chest pain was more GI related. Patient was instructed to continue her home regimen. Recommendations given for MiraLAX to use 2-3 doses a day and to adjust according to response. Patient is afebrile, without leukocytosis, chest pain-free, and oxygenating adequately on room air. Follow-up appointment established with PCP for 08/31. Patient is optimal for discharge home at this time. Total Time Spent: Greater than 30 minutes This includes examination of the patient, discharge planning, medication reconciliation, and communication with other providers. (Alida Herring PA-C) i personally examined pt and verified all gaines points w A Nevaeh PAC feeling better, family present all suspect CP was constipation driven vitals noted nad breathing unlabored no pallor or icterus cp - likely was constipation. explained range and use of miralax to dtr who is primary caregiver. stable for home (Joey Ferraro D.O.) Discharge Instructions Please refer to the electronic Patient Visit Report (Discharge Instructions) for additional information. (Alida Herring, ETHANC) Additional Copies To RV. Orourke MD
[2016-08-21] MEDS ORDERED: ATORVASTATIN 10 MG TAB PO SCH (21:00)
[2016-08-21] MEDS ORDERED: RISPERIDONE 0.5 MG TAB PO SCH (21:00)
[2016-08-21] MEDS ORDERED: MAGNESIUM OXIDE 400 MG TAB PO SCH (21:00)
[2017-04-15] MEDS ORDERED: POLY335019 PO (11:05)
== END 2016-08-21 14:29 | disposition home health service (06) | DRG 392 ==
LOC: ENRESERVDT → ENRESERVTM → C.EDB 19:08 → C.MED 22:33
PROVIDERS: ADMIT Hospitalist; ATTEND Hospitalist
DX: K59.00 Constipation, unspecified (principal); F32.9 Major depressive disorder, single episode, unspecified; I10 Essential (primary) hypertension; F03.90 Unspecified dementia, unspecified severity, without behavioral disturbance, psychotic disturbance, mood disturbance, and anxiety; Z86.718 Personal history of other venous thrombosis and embolism; Z86.73 Personal history of transient ischemic attack (TIA), and cerebral infarction without residual deficits; Z83.3 Family history of diabetes mellitus; F41.9 Anxiety disorder, unspecified; I25.10 Atherosclerotic heart disease of native coronary artery without angina pectoris; Z82.49 Family history of ischemic heart disease and other diseases of the circulatory system; R73.9 Hyperglycemia, unspecified

== ENCOUNTER 2016-10-31 08:03 | Emergency (ER) | payer OTHER, BC ==
[~2016-10-31] VITALS: Ht 157.5 cm; Wt 73.4 kg
[~2016-10-31 08:03] MED LIST changes: -CIPR1TAB11 PO; -COEN1CAP28 PO; -DULCOLAX SUPP RE; -FERR1TAB62 PO; +MRLP17X PO; -OXYC1TAB3 PO; +PRNJ PO; +RISP-99 PO; +RISP0.254 PO; -RISP0.258 PO; +SENNTAB23 PO; -SODIENE PR
[2016-10-31 08:09] VITALS: TEMP 36.5; Ht 157.5 cm; Wt 73.4 kg
[2016-10-31] MEDS ORDERED: SODIUM CHLORIDE 0.9% 500ML 500 ML IV STA (08:27)
--- NOTE | 2016-10-31 08:40 | EMERGENCY ROOM VISIT NOTE ---
History First contact with patient: 08:15 Chief Complaint: RECTAL BLEEDING Stated Complaint: BLOOD IN STOOL Nursing Triage Summary: Patient arrived to triage via WC. Pt daughter states patient was disimpacted by another family member this morning and after that pt had red blood in her stool. Pt denies abdominal pain, hixtory of rectal bleeding, n/v/d. Pt not a good historian. Pt asking for her walker. Pt family brought cane with her. Pt daughter states pt has dementia and is upset her walker is not here. History of Present Illness The patient is a 80 year old female who presents to the Emergency Room with complaints of rectal bleeding. History is mostly taken from her daughter as patient has baseline dementia secondary to previous CVA/small vessel disease. This morning she woke up soaked in urine (which isn't that unusual but the amount was large). She went to go pass a bowel movement with the help of her daughter and had very hard stool so this was disimpacted by her daughter. After the disimpaction she noticed bright red blood mixed in with the stool and had lots more on wiping. Her daughter also noticed very strong smelling urine. The patient was not complaining of any pain, nausea or vomiting at that time. As per her daughter she is at her baseline mental status (perhaps slightly more argumentative and continually just asks me for her walker (which the family left at home). She is able to follow simple commands and answer yes and no questions. She has chronic constipation and takes a stool softener each night +/ - other laxatives PRN. Colonoscopy in 2016 showed diverticulosis. She denies any fevers, chills, any pain, nausea, vomiting. Review of Systems See HPI for pertinent positives & negatives. A total of 10 systems reviewed and were otherwise negative. Past Medical/Surgical History Medical Problems: (1) Anxiety (2) Aortic stenosis (3) blood clots (4) Chest pain (5) Confusion (6) CVA (7) Depressive disorder, not elsewhere classified (8) Diabetes (9) Heart disease (10) History of - tubal ligation (11) Hypertension (12) Kidney stone (13) stomach problems (14) Stroke (15) Thumb laceration (16) Weakness Surgical Problems: (1) H/O: hysterectomy Family History Diabetes mellitus FH: heart disease Hypertension Social History Smoking Status: Never Smoker Alcohol Use: none Drug Use: none Marital Status: Housing Status: lives with family Occupation Status: retired Current/Historical Medications Scheduled Aspirin (Aspirin Ec), 81 MG PO QAM Atorvastatin (Lipitor), 10 MG PO QPM Cholecalciferol (Vitamin D), 1 TAB PO QAM Coenzyme Q10 (Ubidecarenone) (Coq-10), 100 MG PO QAM Cranberry (Vaccinium Macrocarp (Cranberry), 1 TAB PO QAM Magnesium Oxide (Mag-Ox), 400 MG PO QPM Metoprolol Tartrate (Lopressor), 12.5 MG PO BID Prune Juice (Prune Juice ), 1 DOSE PO PRN Risperidone (Risperidone), 0.25 MG PO QDB Risperidone (Risperidone), 0.5 MG PO LUNCH & DINNER Sennosides-Docusate Sodium (Stool Softener), 1 TAB PO HS Scheduled PRN Acetaminophen (Tylenol), 650 MG PO Q4 PRN for Pain Magnesium Hydroxide (Milk Of Magnesia), 30 ML PO for Constipation Polyethylene (Miralax), 17 GM PO DAILY PRN for Constipation Allergies Coded Allergies: Enalapril (Unverified Allergy, Unknown, Unknown, 10/31/16) Escitalopram (Unverified Adverse Reaction, Unknown, Hallucinations, ) Physical Exam Vital Signs Date Time Temp Pulse Resp B/P (MAP) Pulse Ox O2 Delivery O2 Flow Rate FiO2 10/31/16 11:21 66 17 166/75 96 10/31/16 10:35 52 19 172/71 98 Room Air 10/31/16 09:10 55 17 156/70 98 Room Air 10/31/16 08:15 56 10/31/16 08:09 36.5 65 19 165/75 97 Room Air Physical Exam VITAL SIGNS: were reviewed as above GENERAL: no acute distress, lying in bed repeatedly asking for her walker SKIN: Warm dry and pink, no rashes HEAD: Normocephalic and atraumatic EYES: extraocular muscles intact, pupils equal and minimally reactive to light OROPHARYNX: non erythematous, clear and moist NECK: Supple, no adenopathy or meningismus LUNGS: clear to auscultation, no accessory muscle use HEART: Regular rate and rhythm, heart sounds 1+2, systolic murmur heard loudest in LUSB ABDOMEN: Soft and nontender, bowel sounds normal RECTAL: verbal consent gained with RN and concrete pipe plant supervisor as clinical trial head, no skin tags or external hemorrhoids, empty rectum, no masses or internal hemorrhoids felt, brown loose stool, FOB positive BACK: no CVA tenderness EXTREMITIES: Warm and well perfused, no calf tenderness/swelling, no pedal edema. NEUROLOGICALLY: Awake alert, orientated to person, disorientated to time and place. Moving all 4 limbs to command with slight chronic weakness in right leg only. No facial droop. Speech is clear. Vision is grossly normal. MUSCULOSKELETAL: Good muscle tone. No evidence of trauma Medical Decision & Procedures Laboratory Results 10/31/16 08:20 10/31/16 08:20 Test 10/31/16 08:20 10/31/16 09:05 Red Blood Count 4.16 M/uL (4.2-5.4) Mean Corpuscular Volume 87.5 fL (80-100) Mean Corpuscular Hemoglobin 29.1 pg (25-34) Mean Corpuscular Hemoglobin Concent 33.2 g/dl (32-36) RDW Standard Deviation 45.3 fL (36.4-46.3) RDW Coefficient of Variation 14.2 % (11.5-14.5) Mean Platelet Volume 10.0 fL (7.4-10.4) Prothrombin Time 10.7 SECONDS (9.0-12.0) Prothromb Time International Ratio 1.0 (0.9-1.1) Activated Partial Thromboplast Time 23.3 SECONDS (21.0-31.0) Partial Thromboplastin Ratio 0.9 Anion Gap 9.0 mmol/L (3-11) Est Creatinine Clear Calc Drug Dose 42.8 ml/min Estimated GFR () 62.1 Estimated GFR (Non- 53.5 BUN/Creatinine Ratio 20.4 (10-20) Calcium Level 8.7 mg/dl (8.5-10.1) Total Bilirubin 0.5 mg/dl (0.2-1) Aspartate Amino Transf (AST/SGOT) 17 U/L (15-37) Alanine Aminotransferase (ALT/SGPT) 14 U/L (12-78) Alkaline Phosphatase 76 U/L (45-117) Total Protein 6.6 gm/dl (6.4-8.2) Albumin 3.1 gm/dl (3.4-5.0) Globulin 3.5 gm/dl (2.5-4.0) Albumin/Globulin Ratio 0.9 (0.9-2) Urine Color YELLOW Urine Appearance CLEAR (CLEAR) Urine pH 6.5 (4.5-7.5) Urine Specific [place] 1.014 (1.000-1.030) Urine Protein NEG (NEG) Urine Glucose (UA) NEG (NEG) Urine Ketones NEG (NEG) Urine Occult Blood NEG (NEG) Urine Nitrite NEG (NEG) Urine Bilirubin NEG (NEG) Urine Urobilinogen NEG (NEG) Urine Leukocyte Esterase SMALL (NEG) Urine WBC (Auto) 10-30 /hpf (0-5) Urine RBC (Auto) 0-4 /hpf (0-4) Urine Hyaline Casts (Auto) 1-5 /lpf (0-5) Urine Epithelial Cells (Auto) >30 /lpf (0-5) Urine Bacteria (Auto) 2+ (NEG) Urine Renal Epithelial Cells 0-5 /lpf (0-5) Medications Administered Medications (Trade) Dose Ordered Sig/Shaggy Route Start Time Stop Time Status Last Admin Dose Admin Sodium Chloride 500 ml @ 999 mls/hr Q31M STAT IV 10/31/16 08:27 10/31/16 08:57 DC 10/31/16 09:20 999 MLS/HR ED Course 8:17am Complete history and physical taken 9:06am Discussed case with Dr Coyne, no change to plan 9:32am Patient mentioned left leg pain. Reassessed, no swelling or pain on palpation, chronic left ankle swelling as per her daughters, no new pathology identified. 11:06am Reassessed. Patient at baseline as per daughters and they report mood disturbance is usual fluctuating mood for her. Urine amount this morning isn't that unusual especially after sleeping all night long. Declined treatment for UTI at this stage. Medical Decision Prior records/ancillary studies reviewed. Triage Nursing notes reviewed. Additional history obtained from her two daughters. The patient's history was concerning for rectal bleeding. Differential diagnosis: Etiologies such as bleeding diverticulosis, hemorrhoids, anal fissure, anal fistula, skin ulceration, appendicitis, diverticulitis, PUD, biliary pathology, UTI, pancreatitis, obstruction, mesenteric ischemia, aortic pathology, infections, inflammatory bowel disease, renal colic, as well as others were entertained. Physical examination findings: As above. ER treatment provided: Normal Saline 500 ml bolus On reassessment the patient continued to be at her baseline dementia. Diagnostics interpreted by me: The labs revealed no anemia, normal Cr. BUN 20 (declined from previous 29 on 08/20) By the evaluation outlined above emergent etiologies such as appendicitis, diverticulitis, PUD, biliary pathology, UTI, pancreatitis, obstruction, mesenteric ischemia, aortic pathology, infections, inflammatory bowel disease, renal colic, as well as others were deemed relatively unlikely. Most likely diagnosis of bleeding diverticular given recent recent colonoscopy showing diverticulosis and no sign of bleeding on examination from other sources. The patient and her daughters informed about the findings as listed above. All questions were answered and they were pleased with the treatment. Return instructions were outlined and the patient was discharged in stable condition. Referral: The patient was referred back to their primary care physician for follow-up in 2 to 3 days for a recheck of the current condition and repeat H&H. Her blood pressure was also elevated and she was advised to follow up with her PCP regarding this. Impression Primary Impression: Rectal bleeding Departure Information Dispostion Home / Self-Care Condition GOOD Referrals RV. Orourke MD (PCP) Patient Instructions [facility] Additional Instructions You were evaluated in the ER for rectal bleeding. Lab test did not show any anemia. This is most likely from a lower GI bleed and given you history this may be from disimpaction or diverticular bleeding. Please follow up with your primary care physician in 2-3 days for this for a repeat Hemoglobin level (this is the measurement for anemia). You can continue on your aspirin unless the bleeding increases or advised by your primary care physician. You urine analysis showed a possibility of infection as there were 2+ bacteria and a small amount of leukocyte esterase seen. However given your lack of urinary symptoms, possibility of contamination from skin cells and as you are back to your baseline as per your daughters; we elected no to treat this as a UTI currently. If the urine culture grows bacteria you will be called and you may be placed on antibiotics. If you start to develop burning sensation on urination, lower abdominal pain, change in mood or confusion please follow up sooner with your PCP or Urgent Care. If fever, chills, back pain, moderate to severe abdominal pain, increased confusion, increase in GI bleeding, black stool, dizziness, short of breath or chest pain - please return to the ER. Resident Tracking Resident Involvement: Resident Care Provided Care Provided: Adult ED
[2016-10-31 08:41] LABS: HEMATOCRIT 36.4 % (37-47); MEAN CELL VOLUME 87.5 fL (80-100); MEAN CORPUSCULAR HEMOGLOBIN 29.1 pg (25-34); MEAN CORPUSCULAR HGB CONC 33.2 g/dl (32-36); PLATELET COUNT 150 K/uL (130-400); RED BLOOD COUNT 4.16 M/uL (4.2-5.4); WHITE BLOOD COUNT 6.36 K/uL (4.8-10.8)
[2016-10-31] MEDS ORDERED: COEN100C11 PO (08:46)
[2016-10-31] MEDS ORDERED: CRAN1TAB PO (08:46)
[2016-10-31 08:49] LABS: PARTIAL THROMBOPLASTIN RATIO 0.9; PROTHROMBIN TIME (PATIENT) 10.7 SECONDS (9.0-12.0)
[2016-10-31 09:13] LABS: CALCIUM 8.7 mg/dl (8.5-10.1)
[2016-10-31 09:15] LABS: BUN/CREATININE RATIO 20.4 (10-20); POTASSIUM 4.1 mmol/L (3.5-5.1)
[2016-10-31 09:17] LABS: ALB/GLOB RATIO 0.9 (0.9-2)
[2016-10-31 09:36] LABS: URINE APPEARANCE CLEAR (CLEAR); URINE BILIRUBIN NEG (NEG); URINE COLOR YELLOW; URINE EPITHELIAL CELL AUTO >30 /lpf (0-5); URINE NITRITE NEG (NEG); URINE PH 6.5 (4.5-7.5); URINE SPECIFIC GRAVITY 1.014 (1.000-1.030); UROBILINOGEN NEG (NEG); ZZURINE CULT IF INDIC CATH YES
[2016-10-31 09:40] LABS: MANUAL MICROSCOPIC REQUIRED? NO; REVIEW REQ? YES
[2016-10-31 11:21] VITALS: BP 166/75; PULSE 66; O2SAT 96
--- NOTE | 2016-10-31 14:47 | EMERGENCY ROOM VISIT NOTE ---
ED Visit Note First contact with patient: 08:15 Resident Physician Supervision Note: I interviewed and examined the patient. Discussed with Dr. Irwin and agree with findings and plan as documented in the note. Any exceptions or clarifications are listed here: [None] This patient was evaluated and appeared to be in no significant distress. Patient's abdomen is nontender. She has guaiac positive from the rectum. Asians H&H is stable. Blood pressure has remained stable and has been no significant further bleeding. The case was reviewed with Dr. Irwin. Patient will be discharged for outpatient follow-up. She will return to the ER for worsening of symptoms or any medical concerns. Documented By: Ivone Coyne
--- NOTE | 2016-11-03 15:08 | Pharmacy Progress Note ---
ED Pharmacist Culture FollowUp Date of Service: Nov 03, 2016. Coag negative Staph and Group B beta Strep isolated from urine culture. Urinalysis with a significant amount of epithelial cells. Isolation likely contaminants. No intervention required. Case discussed w Dr. Holguin.
[2017-04-15] MEDS ORDERED: POLY335019 PO (11:05)
== END 2016-10-31 11:23 | disposition home or self-care (01) ==
LOC: C.EDB 08:04
DX: K62.5 Hemorrhage of anus and rectum (principal); F41.9 Anxiety disorder, unspecified; I35.0 Nonrheumatic aortic (valve) stenosis; F03.90 Unspecified dementia, unspecified severity, without behavioral disturbance, psychotic disturbance, mood disturbance, and anxiety; Z86.718 Personal history of other venous thrombosis and embolism; F32.9 Major depressive disorder, single episode, unspecified; I10 Essential (primary) hypertension; Z87.442 Personal history of urinary calculi; Z86.73 Personal history of transient ischemic attack (TIA), and cerebral infarction without residual deficits; I51.9 Heart disease, unspecified; Z83.3 Family history of diabetes mellitus; Z82.49 Family history of ischemic heart disease and other diseases of the circulatory system; Z79.82 Long term (current) use of aspirin; Z79.899 Other long term (current) drug therapy

== ENCOUNTER → 2016-12-01 | Outpatient (CLI) | payer OTHER, BC ==
[~2016-12-01] MED LIST changes: +COEN100C11 PO; +CRAN1TAB PO; +METO25TA56 PO; +POLY335019 PO; +TOLT2TAB9 PO; -[UNRECOGNIZED DRUG - CODE] TOP
[2016-12-01 17:23] LABS: MANUAL MICROSCOPIC REQUIRED? NO; REVIEW REQ? NO; URINE APPEARANCE CLEAR (CLEAR); URINE BILIRUBIN NEG (NEG); URINE COLOR YELLOW; URINE EPITHELIAL CELL AUTO >30 /lpf (0-5); URINE NITRITE NEG (NEG); URINE PH 5.5 (4.5-7.5); URINE SPECIFIC GRAVITY 1.018 (1.000-1.030); UROBILINOGEN NEG (NEG); ZZUR CULT IF INDIC CLEAN CATCH YES
== END | disposition home or self-care (01) ==
LOC: C.LABSPEC 16:02
PROVIDERS: ATTEND Internal Medicine
DX: N39.0 Urinary tract infection, site not specified (principal)

== ENCOUNTER 2016-12-11 17:42 | Emergency (ER) | payer OTHER, BC ==
[~2016-12-11 17:42] MED LIST changes: -METO25TA56 PO; -POLY335019 PO; -TOLT2TAB9 PO
[2016-12-11 17:43] VITALS: TEMP 36.8
[2016-12-11] MEDS ORDERED: ONDANSETRON INJ 2 MG/ML 2 ML VIAL IV STA (18:03)
--- NOTE | 2016-12-11 18:24 | DIAGNOSTIC IMAGING REPORT ---
CHEST ONE VIEW PORTABLE CLINICAL HISTORY: ABDOMINAL PAIN/GI pain COMPARISON STUDY: 08/20/2016 FINDINGS: Prior median sternotomy. Diaphragms smooth. Lungs are considered clear. Mild calcification mitral annulus. IMPRESSION: No acute process. The above report was generated using voice recognition software. It may contain grammatical, syntax or spelling errors. Electronically signed by: Adrian Stevens M.D. 12/11/2016 6:22 PM Dictated Date/Time: 12/11/2016 6:21 PM
[2016-12-11 18:27] LABS: BASO % 0.3 %; BASO ABS # 0.02 K/uL (0-0.2); COMPLETE YES; EOS % 1.3 %; HEMATOCRIT 36.2 % (37-47); IG% 0.2 %; LYMPH % 29.3 %; LYMPH ABS # 1.79 K/uL (1.2-3.4); MEAN CELL VOLUME 88.3 fL (80-100); MEAN CORPUSCULAR HEMOGLOBIN 29.3 pg (25-34); MEAN CORPUSCULAR HGB CONC 33.1 g/dl (32-36); MEAN PLATELET VOLUME 9.9 fL (7.4-10.4); MONO % 9.7 %; NEUT % 59.2 %; PLATELET COUNT 137 K/uL (130-400)
[2016-12-11 18:46] VITALS: BP 129/75; PULSE 63; O2SAT 96
[2016-12-11 18:46] LABS: ALT/SGPT 16 U/L (12-78); BLOOD UREA NITROGEN 21 mg/dl (7-18); BUN/CREATININE RATIO 18.9 (10-20); CALCIUM 9.3 mg/dl (8.5-10.1); CARBON DIOXIDE 26 mmol/L (21-32); CHLORIDE 107 mmol/L (98-107); GLUCOSE 160 mg/dl (70-99); POTASSIUM 3.8 mmol/L (3.5-5.1); SODIUM 142 mmol/L (136-145)
[2016-12-11 18:48] LABS: ALKALINE PHOSPHATASE 98 U/L (45-117); AST/SGOT 18 U/L (15-37)
--- NOTE | 2016-12-11 19:47 | EMERGENCY ROOM VISIT NOTE ---
History Report prepared by Savita: Lissy Marrufo Under the Supervision of: Dr. Ayden Raman D.O. 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 The patient was eating dinner when she started choking on a piece of meat. Her daughter did the Heimlich on her and brought her to the ED. The patient has been drooling since. She has been coughing for the past 3 days. She is currently not coughing. She does not have a history of having food stuck in her esophagus. She had an upper GI endoscopy several months ago. She has a history of gallstones and dementia. 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 Review of Systems See HPI for pertinent positives & negatives. A total of 10 systems reviewed and were otherwise negative. Past Medical & Surgical Medical Problems: (1) Anxiety (2) Aortic stenosis (3) blood clots (4) Chest pain (5) Confusion (6) CVA (7) Depressive disorder, not elsewhere classified (8) Diabetes (9) Heart disease (10) History of - tubal ligation (11) Hypertension (12) Kidney stone (13) stomach problems (14) Stroke (15) Thumb laceration (16) Weakness Surgical Problems: (1) H/O: hysterectomy Family History Diabetes mellitus FH: heart disease Hypertension Social History Smoking Status: Never Smoker Alcohol Use: none Drug Use: none Marital Status: Housing Status: lives with family Occupation Status: retired Current/Historical Medications Scheduled Aspirin (Aspirin Ec), 81 MG PO QAM Atorvastatin (Lipitor), 10 MG PO QPM Cholecalciferol (Vitamin D), 1 TAB PO QAM Coenzyme Q10 (Ubidecarenone) (Coq-10), 100 MG PO QAM Cranberry (Vaccinium Macrocarp (Cranberry), 1 TAB PO QAM Magnesium Oxide (Mag-Ox), 400 MG PO QPM Metoprolol Tartrate (Lopressor), 12.5 MG PO BID Prune Juice (Prune Juice ), 1 DOSE PO PRN Risperidone (Risperidone), 0.25 MG PO QDB Risperidone (Risperidone), 0.5 MG PO HS Sennosides-Docusate Sodium (Stool Softener), 1 TAB PO HS Scheduled PRN Acetaminophen (Tylenol), 650 MG PO Q4 PRN for Pain Magnesium Hydroxide (Milk Of Magnesia), 30 ML PO for Constipation Polyethylene (Miralax), 17 GM PO DAILY PRN for Constipation Allergies Coded Allergies: Enalapril (Unverified Allergy, Unknown, Unknown, 12/11/16) Escitalopram (Unverified Adverse Reaction, Unknown, Hallucinations, ) Physical Exam Vital Signs Date Time Temp Pulse Resp B/P (MAP) Pulse Ox O2 Delivery O2 Flow Rate FiO2 12/11/16 18:46 63 18 129/75 96 Room Air 12/11/16 18:24 84 12/11/16 18:09 96 Room Air 12/11/16 17:43 36.8 102 22 149/76 93 Room Air Physical Exam GENERAL: Patient is awake, alert, and very anxious appearing. EYES: The conjunctivae are clear. The pupils are round and reactive. EARS, NOSE, MOUTH AND THROAT: The patient is drooling into an emesis bag, mucous membranes are moist. NECK: The neck is nontender and supple. No stridor noted to auscultation. RESPIRATORY: Normal respiratory effort is noted there is no evidence of wheezing rhonchi or rales CARDIOVASCULAR: Regular rate and rhythm noted there no murmurs rubs or gallops normal S1 normal S2 GASTROINTESTINAL: The abdomen is soft. Bowel sounds are present in all quadrants. Abdomen is nontender MUSCULOSKELETAL/EXTREMITIES: There is no evidence of gross deformity full range of motion is noted in the hips and shoulders SKIN: There is pedal edema bilaterally. NEUROLOGIC: Patient is at baseline according to family members. Medical Decision & Procedures ER Provider Diagnostic Interpretation: X-ray results as stated below per interpretation by me and the radiologist. CHEST ONE VIEW PORTABLE CLINICAL HISTORY: ABDOMINAL PAIN/GI pain COMPARISON STUDY: 08/20/2016 FINDINGS: Prior median sternotomy. Diaphragms smooth. Lungs are considered clear. Mild calcification mitral annulus. IMPRESSION: No acute process. The above report was generated using voice recognition software. It may contain grammatical, syntax or spelling errors. Electronically signed by: Adrian Stevens M.D. 12/11/2016 6:22 PM Dictated Date/Time: 12/11/2016 6:21 PM Laboratory Results 12/11/16 18:05 Red Blood Count 4.10, Mean Corpuscular Volume 88.3, Mean Corpuscular Hemoglobin 29.3, Mean Corpuscular Hemoglobin Concent 33.1, Mean Platelet Volume 9.9, Neutrophils (%) (Auto) 59.2, Lymphocytes (%) (Auto) 29.3, Monocytes (%) (Auto) 9.7, Eosinophils (%) (Auto) 1.3, Basophils (%) (Auto) 0.3, Neutrophils # (Auto) 3.61, Lymphocytes # (Auto) 1.79, Monocytes # (Auto) 0.59, Eosinophils # (Auto) 0.08, Basophils # (Auto) 0.02 12/11/16 18:05 Test 12/11/16 18:05 White Blood Count 6.10 K/uL (4.8-10.8) Red Blood Count 4.10 M/uL (4.2-5.4) Hemoglobin 12.0 g/dL (12.0-16.0) Hematocrit 36.2 % (37-47) Mean Corpuscular Volume 88.3 fL (80-100) Mean Corpuscular Hemoglobin 29.3 pg (25-34) Mean Corpuscular Hemoglobin Concent 33.1 g/dl (32-36) Platelet Count 137 K/uL (130-400) Mean Platelet Volume 9.9 fL (7.4-10.4) Neutrophils (%) (Auto) 59.2 % Lymphocytes (%) (Auto) 29.3 % Monocytes (%) (Auto) 9.7 % Eosinophils (%) (Auto) 1.3 % Basophils (%) (Auto) 0.3 % Neutrophils # (Auto) 3.61 K/uL (1.4-6.5) Lymphocytes # (Auto) 1.79 K/uL (1.2-3.4) Monocytes # (Auto) 0.59 K/uL (0.11-0.59) Eosinophils # (Auto) 0.08 K/uL (0-0.5) Basophils # (Auto) 0.02 K/uL (0-0.2) RDW Standard Deviation 46.5 fL (36.4-46.3) RDW Coefficient of Variation 14.3 % (11.5-14.5) Immature Granulocyte % (Auto) 0.2 % Immature Granulocyte # (Auto) 0.01 K/uL (0.00-0.02) Anion Gap 9.0 mmol/L (3-11) Estimated GFR () 54.9 Estimated GFR (Non- 47.4 BUN/Creatinine Ratio 18.9 (10-20) Calcium Level 9.3 mg/dl (8.5-10.1) Total Bilirubin 0.3 mg/dl (0.2-1) Direct Bilirubin 0.2 mg/dl (0-0.2) Aspartate Amino Transf (AST/SGOT) 18 U/L (15-37) Alanine Aminotransferase (ALT/SGPT) 16 U/L (12-78) Alkaline Phosphatase 98 U/L (45-117) Total Protein 7.0 gm/dl (6.4-8.2) Albumin 3.3 gm/dl (3.4-5.0) Lipase 189 U/L (73-393) Laboratory results per my review. Medications Administered Medications (Trade) Dose Ordered Sig/Shaggy Route Start Time Stop Time Status Last Admin Dose Admin Ondansetron HCl (Zofran Inj) 4 mg NOW STAT IV 12/11/16 18:03 12/11/16 18:04 DC 12/11/16 18:14 4 MG ED Course 1801: The patient was evaluated in room A3. A complete history and physical examination were performed. 1802: Zofran Inj 4 mg IV. 1821: I discussed the patient's case with Dr. Joseph, [facility]. He will come see the patient. 1828: I reevaluated the patient. She has brought up the food bolus. I have updated Dr. Joseph. She is doing better and drinking normally. I discussed the results and treatment plan with her family. She verbalized agreement of the treatment plan. She was discharged home. Medical Decision Prior records/ancillary studies reviewed. Triage Nursing notes reviewed. Additional history obtained from the family. The patient's history was concerning for choking. Differential diagnosis: Etiologies such as gastroenteritis, food borne illness, infections, appendicitis , diverticulitis, inflammatory bowel disease, obstruction, GI bleed, biliary pathology, as well as others were entertained. The patient is an 81-year-old female who presented to the emergency department for an evaluation after having a choking episode. The patient was eating meat when she started having a problem swallowing and breathing. Her family member did a maneuver which appeared to clear her airway but she continues to have drooling and difficulty swallowing her secretions. The patient appeared to have more of an esophageal foreign body. She was treated with IV fluids and Zofran. I discussed her case with the on-call GI specialist and I reviewed the patient' s recent EGD. The patient was able to clear the foreign body without intervention. She was able to drink without difficulty. She did not need to go to the GI lab. She was encouraged to drink plenty clear liquids and follow-up with her primary care physician. She was also encouraged return to the emergency department immediately if symptoms change worsen or the need arises. I discussed her findings with her daughter as well. Medication Reconcilliation Current Medication List: was personally reviewed by me Blood Pressure Screening Patient's blood pressure: Normal blood pressure Blood pressure disposition: Did not require urgent referral Consults Time Called: 1817 Consulting Physician: Dr. Joseph [facility] Returned Call: 1821 I discussed the patient's case with him. He will come see the patient. Impression Primary Impression: Esophageal foreign body Scribe Attestation The scribe's documentation has been prepared under my direction and personally reviewed by me in its entirety. I confirm that the note above accurately reflects all work, treatment, procedures, and medical decision making performed by me. Departure Information Dispostion Home / Self-Care Referrals RV. Orourke MD (PCP) Forms HOME CARE DOCUMENTATION FORM, IMPORTANT VISIT INFORMATION, WORK / SCHOOL INSTRUCTIONS Patient Instructions ED Foreign Body Esophageal R[facility]v, [facility] Additional Instructions Continue to give the patient plenty of clear liquids. Follow-up with your doctor within the next few days. Ensure that the patient is only eating small bites of food and chewing all meals thoroughly Problem Qualifiers Primary Impression: Esophageal foreign body Encounter type: initial encounter Qualified Codes: T18.108A - Unspecified foreign body in esophagus causing other injury, initial encounter
== END 2016-12-11 19:00 | disposition home or self-care (01) ==
LOC: C.EDB 17:43 → C.EDA 19:00
DX: T18.108A Unspecified foreign body in esophagus causing other injury, initial encounter (principal); R05 Cough; F03.90 Unspecified dementia, unspecified severity, without behavioral disturbance, psychotic disturbance, mood disturbance, and anxiety; F41.9 Anxiety disorder, unspecified; I10 Essential (primary) hypertension; E11.9 Type 2 diabetes mellitus without complications; Z86.73 Personal history of transient ischemic attack (TIA), and cerebral infarction without residual deficits; Z87.19 Personal history of other diseases of the digestive system; Z86.718 Personal history of other venous thrombosis and embolism; Z87.442 Personal history of urinary calculi; Z82.49 Family history of ischemic heart disease and other diseases of the circulatory system; Z83.3 Family history of diabetes mellitus; Z79.82 Long term (current) use of aspirin; Z79.899 Other long term (current) drug therapy; X58.XXXA Exposure to other specified factors, initial encounter

== ENCOUNTER 2016-12-27 11:50 | Observation (INO) | payer OTHER, BC ==
[~2016-12-27] VITALS: Ht 165.1 cm; Wt 72.2 kg
--- NOTE | 2016-12-27 12:12 | EMERGENCY ROOM VISIT NOTE ---
History Report prepared by Lizibe: Inna Jackson Under the Supervision of: Dr. Ayden Raman D.O. First contact with patient: 11:57 Chief Complaint: CHEST PAIN Stated Complaint: CHEST PAINS History of Present Illness The patient is an 81 year old female who presents to the Emergency Room with complaints of persistent chest pain for the past 1 hour. She is accompanied by her daughter. Her daughter states after she got the patient out of the shower this morning, she started to complain of left sided chest pain, which she rates as a 5/10. The patient took Tylenol for her pain, which provided minimal relief. She states she does feel somewhat better here in the ED. Her daughter notes she has been "coughing and sneezing a lot" recently. The patient denies any abdominal pain. 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 A total of 10 systems reviewed and were otherwise negative. Past Medical & Surgical Medical Problems: (1) Anxiety (2) Aortic stenosis (3) blood clots (4) Chest pain (5) Confusion (6) CVA (7) Depressive disorder, not elsewhere classified (8) Diabetes (9) Heart disease (10) History of - tubal ligation (11) Hypertension (12) Kidney stone (13) stomach problems (14) Stroke (15) Thumb laceration (16) Weakness Surgical Problems: (1) H/O: hysterectomy Family History Diabetes mellitus FH: heart disease Hypertension Social History Smoking Status: Never Smoker Alcohol Use: none Drug Use: none Marital Status: Housing Status: lives with family Occupation Status: retired Current/Historical Medications Scheduled Aspirin (Aspirin Ec), 81 MG PO QAM Atorvastatin (Lipitor), 10 MG PO QPM Cholecalciferol (Vitamin D), 1 TAB PO QAM Coenzyme Q10 (Ubidecarenone) (Coq-10), 100 MG PO QAM Magnesium Oxide (Mag-Ox), 400 MG PO QPM Metoprolol Tartrate (Lopressor) (Lopressor), 12.5 MG PO BID Polyethylene Glycol 3350 (Miralax), 17 GM PO DAILY Prune Juice (Prune Juice ), 1 DOSE PO PRN Risperidone (Risperidone), 0.5 MG PO TID Sennosides-Docusate Sodium (Stool Softener), 1 TAB PO HS Tolterodine Tartrate (Tolterodine Tartrate), 2 MG PO BID Scheduled PRN Acetaminophen (Tylenol), 650 MG PO Q4 PRN for Pain Magnesium Hydroxide (Milk Of Magnesia), 30 ML PO for Constipation Allergies Coded Allergies: Enalapril (Unverified Allergy, Unknown, Unknown, 12/27/16) Escitalopram (Unverified Adverse Reaction, Unknown, Hallucinations, ) Physical Exam Vital Signs Date Time Temp Pulse Resp B/P (MAP) Pulse Ox O2 Delivery O2 Flow Rate FiO2 12/27/16 13:42 57 18 153/81 99 Room Air 12/27/16 12:05 95 Room Air 12/27/16 12:01 94 Room Air 12/27/16 12:01 36.5 60 22 165/81 95 Room Air 12/27/16 12:01 97 Room Air Physical Exam GENERAL: Patient is awake, alert, in no acute distress patient is resting comfortably and showing no signs of anxiety EYES: The conjunctivae are clear. The pupils are round and reactive. EARS, NOSE, MOUTH AND THROAT: The nose is without any evidence of any deformity. Mucous membranes are moist tongue is midline NECK: The neck is nontender and supple. RESPIRATORY: Normal respiratory effort is noted there is no evidence of wheezing rhonchi or rales CARDIOVASCULAR: Regular rate and rhythm noted there no murmurs rubs or gallops normal S1 normal S2 GASTROINTESTINAL: The abdomen is soft. Bowel sounds are present in all quadrants. Abdomen is nontender MUSCULOSKELETAL/EXTREMITIES: There is no evidence of gross deformity full range of motion is noted in the hips and shoulders SKIN: Pedal edema bilaterally, no calf tenderness noted. There is no obvious evidence of any rash. There are no petechiae, pallor or cyanosis noted. NEUROLOGIC: The patient is at her baseline according to family member. Medical Decision & Procedures ER Provider Diagnostic Interpretation: Radiology results as stated below per my review and radiologist interpretation: CHEST ONE VIEW PORTABLE HISTORY: Atypical CHEST PAIN COMPARISON: Chest 12/11/2016. Chest CTA 08/20/2016. FINDINGS: The lungs are clear. Cardiac silhouette remains mildly enlarged. No pleural effusions. No pneumothorax. Poststernotomy changes. Cardiac valve prosthesis. IMPRESSION: No significant change compared to the prior study. No acute process. Electronically signed by: Madan Ortiz M.D. 12/27/2016 12:31 PM Laboratory Results 12/27/16 12:10 Red Blood Count 4.19, Mean Corpuscular Volume 89.3, Mean Corpuscular Hemoglobin 29.8, Mean Corpuscular Hemoglobin Concent 33.4, Mean Platelet Volume 9.8, Neutrophils (%) (Auto) 65.3, Lymphocytes (%) (Auto) 22.6, Monocytes (%) (Auto) 10.1, Eosinophils (%) (Auto) 1.3, Basophils (%) (Auto) 0.3, Neutrophils # (Auto ) 4.48, Lymphocytes # (Auto) 1.55, Monocytes # (Auto) 0.69, Eosinophils # (Auto ) 0.09, Basophils # (Auto) 0.02 12/27/16 12:10 Test 12/27/16 12:10 12/27/16 13:50 White Blood Count 6.86 K/uL (4.8-10.8) Red Blood Count 4.19 M/uL (4.2-5.4) Hemoglobin 12.5 g/dL (12.0-16.0) Hematocrit 37.4 % (37-47) Mean Corpuscular Volume 89.3 fL (80-100) Mean Corpuscular Hemoglobin 29.8 pg (25-34) Mean Corpuscular Hemoglobin Concent 33.4 g/dl (32-36) Platelet Count 152 K/uL (130-400) Mean Platelet Volume 9.8 fL (7.4-10.4) Neutrophils (%) (Auto) 65.3 % Lymphocytes (%) (Auto) 22.6 % Monocytes (%) (Auto) 10.1 % Eosinophils (%) (Auto) 1.3 % Basophils (%) (Auto) 0.3 % Neutrophils # (Auto) 4.48 K/uL (1.4-6.5) Lymphocytes # (Auto) 1.55 K/uL (1.2-3.4) Monocytes # (Auto) 0.69 K/uL (0.11-0.59) Eosinophils # (Auto) 0.09 K/uL (0-0.5) Basophils # (Auto) 0.02 K/uL (0-0.2) RDW Standard Deviation 46.6 fL (36.4-46.3) RDW Coefficient of Variation 14.2 % (11.5-14.5) Immature Granulocyte % (Auto) 0.4 % Immature Granulocyte # (Auto) 0.03 K/uL (0.00-0.02) Prothrombin Time 10.2 SECONDS (9.0-12.0) Prothromb Time International Ratio 1.0 (0.9-1.1) Activated Partial Thromboplast Time 21.2 SECONDS (21.0-31.0) Partial Thromboplastin Ratio 0.8 Anion Gap 8.0 mmol/L (3-11) Est Creatinine Clear Calc Drug Dose 52.7 ml/min Estimated GFR () 73.9 Estimated GFR (Non- 63.8 BUN/Creatinine Ratio 23.4 (10-20) Calcium Level 8.9 mg/dl (8.5-10.1) Total Bilirubin 0.4 mg/dl (0.2-1) Direct Bilirubin 0.1 mg/dl (0-0.2) Aspartate Amino Transf (AST/SGOT) 17 U/L (15-37) Alanine Aminotransferase (ALT/SGPT) 17 U/L (12-78) Alkaline Phosphatase 82 U/L (45-117) Total Creatine Kinase 70 U/L (26-192) Creatine Kinase MB 1.3 ng/ml (0.5-3.6) Creatine Kinase MB Ratio 1.9 (0-3.0) Total Protein 6.7 gm/dl (6.4-8.2) Albumin 3.2 gm/dl (3.4-5.0) Lipase 146 U/L (73-393) Troponin I < 0.015 ng/ml (0-0.045) Laboratory results per my review. Medications Administered Medications (Trade) Dose Ordered Sig/Shaggy Route Start Time Stop Time Status Last Admin Dose Admin Aspirin (Aspirin Chew) 324 mg NOW STAT PO 12/27/16 13:51 12/27/16 13:52 DC 12/27/16 13:58 324 MG ECG Indication: chest pain Rate (beats per minute): 58 Rhythm: sinus bradycardia Findings: LBBB, other (Biphasic T-waves in the lateral and inferior leads) Comparison ECG Date: T-wave abnormalities are new when compared to EKG from 08/20 Change: Repeat EKG on 12/27/16: Sinus bradycardia, rate of 57, no ectopy, biphasic T- waves noted in inferior and lateral leads, similar to earlier tracing ED Course 1159: The patient was evaluated in room B4. A complete history and physical examination were performed. 1351: I reevaluated the patient. I discussed her results and my recommendation she remain in the hospital for further evaluation and management and she verbalized complete understanding and agreement. 1351: Aspirin 324 mg PO. 1408: I discussed the patients case with Dr. Franco [facility] Hospitalist. The patient will be further evaluated. Medical Decision Prior records/ancillary studies reviewed. Triage Nursing notes reviewed. Additional history obtained from the patients family. The patient's history was concerning for chest pain. Differential diagnosis: Etiologies such as cardiac ischemia, aortic dissection, pulmonary embolism, pneumonia, pneumothorax, musculoskeletal, infections, pericarditis, myocarditis , esophageal rupture, gastrointestinal, as well as others were entertained. The patient is an 81-year-old female who has a cardiac history who presented to the emergency department for an evaluation of chest pain. The patient's EKG shows a left bundle-branch block which is not new but she has biphasic T waves in the inferior and lateral leads. This does appear to be new compared to previous EKGs. The patient's cardiac biomarker was negative. I discussed the patient's laboratory and radiographic studies with her and her daughter. She was treated with aspirin in emergency department. I discussed her case with the on-call [facility] hospitalist. They've agreed to evaluate the patient in the emergency department for further management and disposition. The patient was reevaluated multiple times. I discussed the limitations of the emergency department workup for chest pain with the patient and her daughter. Medication Reconcilliation Current Medication List: was personally reviewed by me Blood Pressure Screening Patient's blood pressure: Elevated blood pressure Blood pressure disposition: Referred to PCP Consults Time Called: 1406 Consulting Physician: Dr. Franco [facility] Hospitalist Returned Call: 140 I discussed the patients case with Dr. Franco [facility] Hospitalist. The patient will be further evaluated. Impression Primary Impression: Chest pain Additional Impression: Abnormal EKG Scribe Attestation The scribe's documentation has been prepared under my direction and personally reviewed by me in its entirety. I confirm that the note above accurately reflects all work, treatment, procedures, and medical decision making performed by me. Departure Information Dispostion Being Evaluated By Hospitalist Referrals RV. Orourke MD (PCP) Patient Instructions [facility] Problem Qualifiers Primary Impression: Chest pain Chest pain type: unspecified Qualified Codes: R07.9 - Chest pain, unspecified
[2016-12-27] MEDS ORDERED: METO25TA56 PO (12:24)
[2016-12-27] MEDS ORDERED: TOLT2TAB9 PO (12:24)
[2016-12-27] MEDS ORDERED: POLY335019 PO (12:24)
--- NOTE | 2016-12-27 12:32 | DIAGNOSTIC IMAGING REPORT ---
CHEST ONE VIEW PORTABLE HISTORY: Atypical CHEST PAIN COMPARISON: Chest 12/11/2016. Chest CTA 08/20/2016. FINDINGS: The lungs are clear. Cardiac silhouette remains mildly enlarged. No pleural effusions. No pneumothorax. Poststernotomy changes. Cardiac valve prosthesis. IMPRESSION: No significant change compared to the prior study. No acute process. Electronically signed by: Madan Ortiz M.D. 12/27/2016 12:31 PM Dictated Date/Time: 12/27/2016 12:30 PM
[2016-12-27 12:36] LABS: BASO % 0.3 %; BASO ABS # 0.02 K/uL (0-0.2); COMPLETE YES; EOS % 1.3 %; HEMATOCRIT 37.4 % (37-47); IG% 0.4 %; LYMPH % 22.6 %; LYMPH ABS # 1.55 K/uL (1.2-3.4); MEAN CELL VOLUME 89.3 fL (80-100); MEAN CORPUSCULAR HEMOGLOBIN 29.8 pg (25-34); MEAN CORPUSCULAR HGB CONC 33.4 g/dl (32-36); MEAN PLATELET VOLUME 9.8 fL (7.4-10.4); MONO % 10.1 %; NEUT % 65.3 %; PLATELET COUNT 152 K/uL (130-400); RED BLOOD COUNT 4.19 M/uL (4.2-5.4); WHITE BLOOD COUNT 6.86 K/uL (4.8-10.8)
[2016-12-27 12:45] LABS: PARTIAL THROMBOPLASTIN RATIO 0.8; PROTHROMBIN TIME (PATIENT) 10.2 SECONDS (9.0-12.0)
[2016-12-27 12:54] LABS: BUN/CREATININE RATIO 23.4 (10-20); CALCIUM 8.9 mg/dl (8.5-10.1); CREATININE 0.86 mg/dl (0.60-1.20); POTASSIUM 4.4 mmol/L (3.5-5.1)
[2016-12-27 12:59] LABS: CKMB/CK RATIO 1.9 (0-3.0)
[2016-12-27] MEDS ORDERED: ASPIRIN 324 MG CHEW PO STA (13:51)
[2016-12-27] MEDS ORDERED: ONDANSETRON INJ 2 MG/ML 2 ML VIAL IV PRN (14:30)
[2016-12-27] MEDS ORDERED: PRUNE JUICE PO SCH (14:30)
[2016-12-27] MEDS ORDERED: MAGNESIUM HYDROXIDE SUSP 30 ML UDC PO PRN ×2 (14:30)
[2016-12-27] MEDS ORDERED: ACETAMINOPHEN 325 MG TAB PO PRN ×2 (14:30)
--- NOTE | 2016-12-27 14:35 | History and Physical ---
History & Physical Date & Time of Service: Dec 27, 2016 at 14:25 Chief Complaint: Chest Pains Primary Care Physician: RV. Orourke MD History of Present Illness Source: patient 81 y/o F who states she is here because "I keep peeing myself". Family is not present during my exam. Per ED physician: The patient is an 81 year old female who presents to the Emergency Room with complaints of persistent chest pain for the past 1 hour. She is accompanied by her daughter. Her daughter states after she got the patient out of the shower, she started to complain of left sided chest pain, which she rated as a 5/10. The patient took Tylenol for her pain, which provided minimal relief. She states she does feel somewhat better here in the ED. Her daughter notes she has been "coughing and sneezing a lot" recently. The patient denies any abdominal pain. Pt can only tell me that she has chest pain "on and off". She is unable to quantify this further. It is unclear if she has abd pain based on her answers to me. Pt denies fever, SOB, n/v/c/d, LE pain or swelling. Past Medical/Surgical History All hx is per EHR as pt cannot give me further details. Medical Problems: (1) Anxiety Status: Chronic (2) Aortic stenosis Status: Chronic (3) blood clots Status: Chronic (4) CVA Status: Resolved (6) Heart disease Status: Chronic (7) History of - tubal ligation Status: Resolved (8) Hypertension Status: Chronic (9) Kidney stone Status: Chronic (10) stomach problems Status: Chronic (11) Stroke Status: Chronic (12) Thumb laceration Status: Resolved Surgical Problems: (1) H/O: hysterectomy Status: Resolved Family History Family history was reviewed; no changes noted. Social History Smoking Status: Never Smoker Alcohol Use: none Drug Use: none Marital Status: Housing status: lives with family Occupational Status: retired Immunizations History of Influenza Vaccine: Yes Influenza Vaccine Date: Apr 01, 2011 History of Tetanus Vaccine?: utd Tetanus Immunization Date: Mar 30, 2009 History of Pneumococcal: Yes Pneumococcal Date: Apr 02, 2011 History of Hepatitis B Vaccine: Unknown Multi-Drug Resistant Organisms History of MDRO: No Allergies Coded Allergies: Enalapril (Unverified Allergy, Unknown, Unknown, 12/27/16) Escitalopram (Unverified Adverse Reaction, Unknown, Hallucinations, ) Home Medications Scheduled Aspirin (Aspirin Ec), 81 MG PO QAM Atorvastatin (Lipitor), 10 MG PO QPM Cholecalciferol (Vitamin D), 1 TAB PO QAM Coenzyme Q10 (Ubidecarenone) (Coq-10), 100 MG PO QAM Magnesium Oxide (Mag-Ox), 400 MG PO QPM Metoprolol Tartrate (Lopressor) (Lopressor), 12.5 MG PO BID Polyethylene Glycol 3350 (Miralax), 17 GM PO DAILY Prune Juice (Prune Juice ), 1 DOSE PO PRN Risperidone (Risperidone), 0.5 MG PO TID Sennosides-Docusate Sodium (Stool Softener), 1 TAB PO HS Tolterodine Tartrate (Tolterodine Tartrate), 2 MG PO BID Scheduled PRN Acetaminophen (Tylenol), 650 MG PO Q4 PRN for Pain Magnesium Hydroxide (Milk Of Magnesia), 30 ML PO for Constipation Review of Systems Pertinent positives and negatives reviewed in HPI--all others negative Physical Exam Vital Signs Date Time Temp Pulse Resp B/P (MAP) Pulse Ox O2 Delivery O2 Flow Rate FiO2 12/27/16 13:42 57 18 153/81 99 Room Air 12/27/16 12:05 95 Room Air 12/27/16 12:01 94 Room Air 12/27/16 12:01 36.5 60 22 165/81 95 Room Air 12/27/16 12:01 97 Room Air General Appearance: WD/WN, no apparent distress Head: normocephalic, atraumatic Eyes: normal inspection, EOMI ENT: hearing grossly normal Neck: supple Respiratory/Chest: normal breath sounds, no respiratory distress Cardiovascular: regular rate, rhythm, no edema Abdomen/GI: soft, + tenderness (just lateral to epigastric region) Extremities/Musculoskelatal: no calf tenderness, no pedal edema Neurologic/Psych: alert, + depressed affect, + pertinent finding (answers questions with clear speech, however answers are not always appropriate) Skin: normal color, warm/dry Diagnostics Laboratory Results Results Past 24 Hours Test 12/27/16 12:10 12/27/16 13:50 Range/Units White Blood Count 6.86 4.8-10.8 K/uL Red Blood Count 4.19 4.2-5.4 M/uL Hemoglobin 12.5 12.0-16.0 g/dL Hematocrit 37.4 37-47 % Mean Corpuscular Volume 89.3 80-100 fL Mean Corpuscular Hemoglobin 29.8 25-34 pg Mean Corpuscular Hemoglobin Concent 33.4 32-36 g/dl Platelet Count 152 130-400 K/uL Mean Platelet Volume 9.8 7.4-10.4 fL Neutrophils (%) (Auto) 65.3 % Lymphocytes (%) (Auto) 22.6 % Monocytes (%) (Auto) 10.1 % Eosinophils (%) (Auto) 1.3 % Basophils (%) (Auto) 0.3 % Neutrophils # (Auto) 4.48 1.4-6.5 K/uL Lymphocytes # (Auto) 1.55 1.2-3.4 K/uL Monocytes # (Auto) 0.69 0.11-0.59 K/uL Eosinophils # (Auto) 0.09 0-0.5 K/uL Basophils # (Auto) 0.02 0-0.2 K/uL RDW Standard Deviation 46.6 36.4-46.3 fL RDW Coefficient of Variation 14.2 11.5-14.5 % Immature Granulocyte % (Auto) 0.4 % Immature Granulocyte # (Auto) 0.03 0.00-0.02 K/uL Prothrombin Time 10.2 9.0-12.0 SECONDS Prothromb Time International Ratio 1.0 0.9-1.1 Activated Partial Thromboplast Time 21.2 21.0-31.0 SECONDS Partial Thromboplastin Ratio 0.8 Sodium Level 142 136-145 mmol/L Potassium Level 4.4 3.5-5.1 mmol/L Chloride Level 105 98-107 mmol/L Carbon Dioxide Level 29 21-32 mmol/L Anion Gap 8.0 3-11 mmol/L Blood Urea Nitrogen 20 7-18 mg/dl Creatinine 0.86 0.60-1.20 mg/dl Est Creatinine Clear Calc Drug Dose 52.7 ml/min Estimated GFR () 73.9 Estimated GFR (Non- 63.8 BUN/Creatinine Ratio 23.4 10-20 Random Glucose 93 70-99 mg/dl Calcium Level 8.9 8.5-10.1 mg/dl Total Bilirubin 0.4 0.2-1 mg/dl Direct Bilirubin 0.1 0-0.2 mg/dl Aspartate Amino Transf (AST/SGOT) 17 15-37 U/L Alanine Aminotransferase (ALT/SGPT) 17 12-78 U/L Alkaline Phosphatase 82 45-117 U/L Total Creatine Kinase 70 26-192 U/L Creatine Kinase MB 1.3 0.5-3.6 ng/ml Creatine Kinase MB Ratio 1.9 0-3.0 Troponin I 0.016 < 0.015 0-0.045 ng/ml Total Protein 6.7 6.4-8.2 gm/dl Albumin 3.2 3.4-5.0 gm/dl Lipase 146 73-393 U/L Diagnostic Radiology CXR neg for acute EKG LBBB noted, which is seen prior Now with biphasic T waves Impression Assessment and Plan 81 y/o F who was admitted on 12/27 for observation for chest pain Chest pain: difficult to gather further hx from pt, however with hx of CABG and CVA x2 per records Trop with minimal elevation, will monitor serials EKG with new T wave changes x2, will repeat in AM and monitor on tele overnight CBC, PRP WNL Lipid panel in AM Possibly pt is referring to epigastric pain as chest pain, will monitor and may need additional testing for this if ongoing Lipase WNL Flat affect: TSH, B12, folate pending Possibly related to risperidone use HTN: continue home meds Anxiety/depression: continue home meds Hx of blood clots listed: May need t/c LE Pt was in ED 08/2016 with c/o chest pain and CTA neg at that time Other: Full code for now, however states she is unsure about the answers to my questions and would like this discussed with her family SCDs for DVT proph AHA diet Level of Care Telemetry VTE Prophylaxis VTE Risk Assessment Done? Y/N: Yes Risk Level: Low
[2016-12-27] MEDS ORDERED: IV FLUIDS COMPLETED PRN (15:30)
[2016-12-27 16:15] VITALS: BP 139/84; PULSE 61; TEMP 36.3; O2SAT 98
[2016-12-27 16:42] VITALS: BP 139/84; PULSE 61; TEMP 36.3; O2SAT 98; Ht 165.1 cm; Wt 72.2 kg
[2016-12-27 19:21] VITALS: BP 158/82; PULSE 66; TEMP 36.4; O2SAT 95
[2016-12-27] MEDS: METOPROLOL TARTRATE 25 MG TAB PO SCH (20:52)
[2016-12-27] MEDS: TOLTERODINE TARTRATE 2 MG TAB PO SCH (20:52)
[2016-12-27] MEDS: RISPERIDONE 0.5 MG TAB PO SCH (20:53)
[2016-12-27] MEDS ORDERED: DOCUSATE SODIUM/SENNA 50/8.6MG TAB PO SCH (21:00)
[2016-12-27] MEDS ORDERED: MAGNESIUM OXIDE 400 MG TAB PO SCH (21:00)
[2016-12-27] MEDS ORDERED: ATORVASTATIN 20 MG TAB PO SCH (21:00)
[2016-12-27 22:06] LABS: CHOLESTEROL/HDL RATIO 2.1; THYROID STIMULATING HORMONE 1.35 uIu/ml (0.300-4.500)
[2016-12-28 08:21] VITALS: BP 168/89; PULSE 66; TEMP 36.6; O2SAT 98
[2016-12-28] MEDS: RISPERIDONE 0.5 MG TAB PO SCH ×2 (08:38→14:10)
[2016-12-28] MEDS: TOLTERODINE TARTRATE 2 MG TAB PO SCH (08:39)
[2016-12-28] MEDS: METOPROLOL TARTRATE 25 MG TAB PO SCH (08:40)
[2016-12-28] MEDS ORDERED: ASPIRIN 81 MG ECTAB PO SCH (09:00)
[2016-12-28] MEDS ORDERED: POLYETHYLENE (MIRALAX) 17 GM PACK PO SCH (09:00)
[2016-12-28] MEDS ORDERED: NON-FORMULARY MEDICATION (Coenzyme Q10 (Ubidecarenone) (Coq-10) 100 MG) PO SCH (09:00)
[2016-12-28] MEDS ORDERED: CHOLECALCIFEROL 1000 INTER.UNIT TAB PO SCH (09:00)
[2016-12-28 09:47] LABS: ESTIMATED AVERAGE GLUCOSE 123 mg/dl; HA1C FLAG Normal (Normal)
[2016-12-28 11:10] VITALS: BP_SYST 131; PULSE 57; TEMP 36.7; O2SAT 96
--- NOTE | 2016-12-28 11:33 | Medical Student: [facility] ---
Med Student Progress Note Date of Service Dec 28, 2016. Subjective Pt evaluation today including: conversation w/ patient, conversation w/ family , physical exam, chart review, lab review, review of studies Voiding: incontinence Patient examined laying in bed this morning. She says her chest pain comes and goes though it is improved from yesterday. Patient reports that she had urinary incontinence overnight. Patient's daughter was present at the bedside and was able to provide additional information. Patient reports that she is not in pain and is not having shortness of breath. Full ROS not completed due to the patient 's mental status. Objective Vital Signs Date Time Temp Pulse Resp B/P (MAP) Pulse Ox O2 Delivery O2 Flow Rate FiO2 12/28/16 11:10 36.7 57 16 131/ (43) 96 12/28/16 08:21 36.6 66 18 168/89 (115) 98 Room Air 12/28/16 04:00 Room Air 12/28/16 00:00 Room Air 12/27/16 20:00 Room Air 12/27/16 19:21 36.4 66 16 158/82 (107) 95 Room Air 12/27/16 16:42 36.3 61 18 139/84 98 Room Air 12/27/16 16:15 36.3 61 18 139/84 (102) 98 Room Air 12/27/16 15:53 163/82 12/27/16 15:44 67 165/88 97 12/27/16 15:43 36.5 57 14 165/88 98 12/27/16 15:01 136/72 12/27/16 15:00 57 14 98 12/27/16 13:42 57 18 153/81 99 Room Air 12/27/16 12:05 95 Room Air 12/27/16 12:01 94 Room Air 12/27/16 12:01 36.5 60 22 165/81 95 Room Air 12/27/16 12:01 97 Room Air Physical Exam General Appearance: + mild distress, + thin Eyes: bilateral eyes normal inspection, bilateral eyes PERRL, bilateral eyes EOMI ENT: normal ENT inspection, hearing grossly normal, pharynx normal Neck: supple, no carotid bruits Respiratory/Chest: lungs clear, normal breath sounds, no respiratory distress, no accessory muscle use Cardiovascular: no edema, no gallop, no murmur Abdomen: normal bowel sounds, non tender, soft Extremities: normal range of motion, no pedal edema, no calf tenderness Neurologic/Psychiatric: + disoriented (oriented to self and place only) Skin: normal color, warm/dry Laboratory Results Last 24 Hours Test 12/27/16 12:10 12/27/16 13:50 12/27/16 20:01 12/28/16 03:46 White Blood Count 6.86 K/uL Red Blood Count 4.19 M/uL Hemoglobin 12.5 g/dL Hematocrit 37.4 % Mean Corpuscular Volume 89.3 fL Mean Corpuscular Hemoglobin 29.8 pg Mean Corpuscular Hemoglobin Concent 33.4 g/dl Platelet Count 152 K/uL Mean Platelet Volume 9.8 fL Neutrophils (%) (Auto) 65.3 % Lymphocytes (%) (Auto) 22.6 % Monocytes (%) (Auto) 10.1 % Eosinophils (%) (Auto) 1.3 % Basophils (%) (Auto) 0.3 % Neutrophils # (Auto) 4.48 K/uL Lymphocytes # (Auto) 1.55 K/uL Monocytes # (Auto) 0.69 K/uL Eosinophils # (Auto) 0.09 K/uL Basophils # (Auto) 0.02 K/uL RDW Standard Deviation 46.6 fL RDW Coefficient of Variation 14.2 % Immature Granulocyte % (Auto) 0.4 % Immature Granulocyte # (Auto) 0.03 K/uL Prothrombin Time 10.2 SECONDS Prothromb Time International Ratio 1.0 Activated Partial Thromboplast Time 21.2 SECONDS Partial Thromboplastin Ratio 0.8 Sodium Level 142 mmol/L Potassium Level 4.4 mmol/L Chloride Level 105 mmol/L Carbon Dioxide Level 29 mmol/L Anion Gap 8.0 mmol/L Blood Urea Nitrogen 20 mg/dl Creatinine 0.86 mg/dl Est Creatinine Clear Calc Drug Dose 52.7 ml/min Estimated GFR () 73.9 Estimated GFR (Non- 63.8 BUN/Creatinine Ratio 23.4 Random Glucose 93 mg/dl Calcium Level 8.9 mg/dl Total Bilirubin 0.4 mg/dl Direct Bilirubin 0.1 mg/dl Aspartate Amino Transf (AST/SGOT) 17 U/L Alanine Aminotransferase (ALT/SGPT) 17 U/L Alkaline Phosphatase 82 U/L Total Creatine Kinase 70 U/L Creatine Kinase MB 1.3 ng/ml Creatine Kinase MB Ratio 1.9 Troponin I 0.016 ng/ml < 0.015 ng/ml < 0.015 ng/ml 0.021 ng/ml Total Protein 6.7 gm/dl Albumin 3.2 gm/dl Lipase 146 U/L Triglycerides Level 121 mg/dl Cholesterol Level 146 mg/dl HDL Cholesterol 70 mg/dl LDL Cholesterol, Calculated 52 mg/dl VLDL Cholesterol, Calculated 24 mg/dl Cholesterol/HDL Ratio 2.1 Vitamin B12 Level 840 pg/mL Folate > 24.00 ng/mL Thyroid Stimulating Hormone (TSH) 1.350 uIu/ml Estimated Average Glucose 123 mg/dl Hemoglobin A1c 5.9 % Assessment and Plan Assessment and Plan: This is a 81yo female with a history of CAD s/p CABG, HTN and anxiety who presented to the ED for cardiac r/o of left-sided chest pain. Troponins negative x4. She is poor historian due to her baseline dementia. Her atypical chest pain is most likely due to scar tissue from her CABG surgery as it is in the same location as the incision and can be reproduced on deep palpation. The differential for her chest pain includes UA/NSTEMI, GERD and costochondritis. Cardiac workup is negative so far so the plan is the discharge the patient with close PCP follow-up. Plan 1. Left-sided chest pain, troponins negative x4 -continue ASA 81mg PO daily 2. HTN -metoprolol tartrate 12.5mg PO BID 3. Anxiety/Depression -risperidone 0.5mg PO daily 4. Urinary incontinence -tolterodine 2mg PO BID 5. FEN/GI -AHA diet -vitamin D 2000U PO daily -coenzyme Q10 1 tab PO daily -magnesium oxide 400mg PO daily 6. DVT prophylaxis -patient may ambulate as tolerated Discharge planning: home Reviewed: Pt Seen/Exam by Me History See my note for details. Assessment/Plan 81 y/o F who was admitted on 12/27 for observation for chest pain. Family was not available on admission for clarification at that time. Chest pain: difficult to gather further hx from pt, however with hx of CABG and CVA x2 per records which was concerning Chest pain is reproducible over mid-sternal region and likely related to scar tissue, either from prior port or CABG. Discussed at length with daughter Trop essentially neg x4 EKG with new T wave changes x2 on admission, now resolved CBC, PRP WNL Lipid panel WNL Lipase WNL Pt was seen in ED 08/2016 with similar complaint, CTA neg at that time Flat affect: TSH, B12, WNL Likely related to risperidone use HTN: continue home meds Anxiety/depression: continue home meds Incontinence: recently started detrol and seems to be helping Risk for hallucinations or other psych issues, will need to monitor closely as outpt
--- NOTE | 2016-12-28 14:06 | Discharge Instructions ---
Discharge Instructions Date of Service Dec 28, 2016. Admission Reason for Admission: Chest Pain Discharge Discharge Diagnosis / Problem: Chest pain, likely related to scar tissue Discharge Goals Goal(s): Decrease discomfort, Improve function, Increase independence Activity Recommendations Activity Limitations: resume your previous activity . Instructions / Follow-Up Instructions / Follow-Up Dr. Sr in 1 week Your chest pain is likely related to scar tissue from your port or your heart surgery. It might be made worse with movements or pushing on it. You can use heating pads or warm compresses to help with this. You can also take ibuprofen , but you should not take this on an empty stomach. Current Hospital Diet Patient's current hospital diet: AHA Diet (Heart Healthy) Discharge Diet Recommended Diet: AHA Diet (Heart Healthy), Diabetes Type 2 Diet Pending Studies Studies pending at discharge: no Laboratory Results Hemoglobin A1c Test 12/28/16 03:46 Range/Units Estimated Average Glucose 123 mg/dl Hemoglobin A1c 5.9 H 4.5-5.6 % Lipid Panel Test 12/27/16 20:01 Range/Units Triglycerides Level 121 0-150 mg/dl Cholesterol Level 146 0-200 mg/dl HDL Cholesterol 70 mg/dl Cholesterol/HDL Ratio 2.1 LDL Cholesterol, Calculated 52 mg/dl Medical Emergencies . Who to Call and When: Medical Emergencies: If at any time you feel your situation is an emergency, please call 911 immediately. . Non-Emergent Contact Non-Emergency issues call your: Primary Care Provider . . "Provider Documentation" section prepared by Carline Franco. . VTE Core Measure Inpt VTE Proph given/why not?: SCD's
--- NOTE | 2016-12-28 14:09 | Discharge Summary ---
Discharge Summary Date of Service Dec 28, 2016. Discharge Summary Admission Date: Dec 27, 2016 at 14:25 Discharge Date: Dec 28, 2016 Discharge Disposition: Home Principal Diagnosis: Chest pain, likely related to scar tissue Problems/Secondary Diagnoses: Dementia Recent CABG Hx of port in chest wall, s/p d/c Anxiety/depression with mood disorder and paranoia Hx of CVA HLD HTN Immunizations: Have You Had Influenza Vaccine: Yes Influenza Vaccine Date: Apr 01, 2011 History of Tetanus Vaccine?: utd Tetanus Immunization Date: Mar 30, 2009 History of Pneumococcal: Yes Pneumococcal Date: Apr 02, 2011 History of Hepatitis B Vaccine: Unknown Medication Reconciliation Continued Medications: Acetaminophen (Tylenol) 325 Mg Tab 650 MG PO Q4 PRN for Pain, TAB Aspirin (Aspirin Ec) 81 Mg Tab 81 MG PO QAM Atorvastatin (Lipitor) 20 Mg Tab 10 MG PO QPM, TAB Cholecalciferol (Vitamin D) 2,000 Unit Tab 1 TAB PO QAM Coenzyme Q10 (Ubidecarenone) (Coq-10) 100 Mg Cap 100 MG PO QAM Magnesium Hydroxide (Milk Of Magnesia) 30 Ml Susp 30 ML PO PRN for Constipation, ML Magnesium Oxide (Mag-Ox) 400 Mg Tab 400 MG PO QPM, TAB Metoprolol Tartrate (Lopressor) (Lopressor) 25 Mg Tab 12.5 MG PO BID Polyethylene Glycol 3350 (Miralax) 1 Pow Pow 17 GM PO DAILY Prune Juice (Prune Juice ) Liqd 1 DOSE PO PRN for Constipation Risperidone (Risperidone) 0.5 Mg Tab 0.5 MG PO TID Sennosides-Docusate Sodium (Stool Softener) 1 Tab Tab 1 TAB PO HS Tolterodine Tartrate (Tolterodine Tartrate) 2 Mg Tab 2 MG PO BID Discharge Exam Pt is stable. She has had no further chest pain. Tolerating PO without issues. Has been able to urinate with less incontinence. Pt denies fever, SOB , abd pain, n/v/c/d, LE pain or swelling. Physical Exam: General Appearance: WD/WN, no apparent distress Respiratory/Chest: normal breath sounds, no respiratory distress, + pertinent finding (chest TTP midsternal) Cardiovascular: regular rate, rhythm, no edema Abdomen / GI: non tender, soft Extremities: no calf tenderness, no pedal edema Neurologic/Psychiatric: alert, + depressed affect, + pertinent finding ( anxious appearing) Skin: normal color, warm/dry Hospital Course 81 y/o F who was admitted on 12/27 for observation for chest pain. Family was not available on admission for clarification at that time. Chest pain: difficult to gather further hx from pt, however with hx of CABG and CVA x2 per records which was concerning Chest pain is reproducible over mid-sternal region and likely related to scar tissue, either from prior port or CABG. Discussed at length with daughter Trop essentially neg x4 EKG with new T wave changes x2 on admission, now resolved CBC, PRP WNL Lipid panel WNL Lipase WNL Pt was seen in ED 08/2016 with similar complaint, CTA neg at that time Flat affect: TSH, B12, WNL Likely related to risperidone use HTN: continue home meds Anxiety/depression: continue home meds Incontinence: recently started detrol and seems to be helping Risk for hallucinations or other psych issues, will need to monitor closely as outpt Total Time Spent: Greater than 30 minutes This includes examination of the patient, discharge planning, medication reconciliation, and communication with other providers. Discharge Instructions Please refer to the electronic Patient Visit Report (Discharge Instructions) for additional information. Follow-Up Dr. Sr in 1 week Additional Copies To RV. Orourke MD
[2016-12-28 14:14] VITALS: BP 131/89; PULSE 57; TEMP 36.7; O2SAT 96
== END 2016-12-28 15:10 | disposition home or self-care (01) ==
LOC: C.EDB 11:53 → C.MED 14:25 → ENRESERV 15:16
PROVIDERS: ADMIT Family Medicine; ATTEND Family Medicine
DX: R07.9 Chest pain, unspecified (principal); I10 Essential (primary) hypertension; Z95.1 Presence of aortocoronary bypass graft; F41.8 Other specified anxiety disorders; R32 Unspecified urinary incontinence; F03.90 Unspecified dementia, unspecified severity, without behavioral disturbance, psychotic disturbance, mood disturbance, and anxiety; Z86.73 Personal history of transient ischemic attack (TIA), and cerebral infarction without residual deficits; Z79.899 Other long term (current) drug therapy

== ENCOUNTER 2017-01-24 16:50 | Emergency (ER) | payer OTHER, BC ==
[~2017-01-24 16:50] MED LIST changes: -CRAN1TAB PO; -LPR25 PO; +METO25TA56 PO; -MRLP17X PO; +POLY335019 PO; -RISP0.254 PO; +TOLT2TAB9 PO
[2017-01-24 16:57] VITALS: TEMP 36.7; Ht 157.5 cm
[2017-01-24] MEDS ORDERED: ACETAMINOPHEN 500 MG TAB PO STA (17:58)
--- NOTE | 2017-01-24 18:34 | DIAGNOSTIC IMAGING REPORT ---
RIGHT FOOT MIN 3 VIEWS ROUTINE CLINICAL HISTORY: R little toe nail injury Right trauma. Pain. COMPARISON: None. DISCUSSION: No acute bony abnormality. Moderate degenerative change throughout. Disruption of the nailbed overlying the distal phalanx fifth toe. Heel spur is present. There is no acute bony abnormality. Soft tissue disruption overlying the distal phalanx fifth toe. IMPRESSION: 1. Soft tissue disruption/nail bed disruption overlying the distal length fifth toe. 2. No acute bony abnormality. 3. Degenerative change throughout. The above report was generated using voice recognition software. It may contain grammatical, syntax or spelling errors. Electronically signed by: Adrian Stevens M.D. 01/24/2017 6:33 PM Dictated Date/Time: 01/24/2017 6:32 PM
[2017-01-24] MEDS ORDERED: XYLOCAINE 1%/SOD BICARB 20 ML VIAL INFIL ONE (19:00)
--- NOTE | 2017-01-24 19:29 | EMERGENCY ROOM VISIT NOTE ---
ED Visit Note First contact with patient: 19:29 I have personally seen and evaluated the patient with the physician registered sales assistant. I agree with the diagnostic/management decisions and have personally been involved in these decisions and agree with the diagnosis.
[2017-01-24 20:15] VITALS: BP 152/117; PULSE 74; O2SAT 97
--- NOTE | 2017-01-25 21:11 | EMERGENCY ROOM VISIT NOTE ---
ED Visit Note First contact with patient: 17:50 Chief Complaint: I mother accidentally tore her right little toe toenail off. History of Present Illness: Ms. Easley is an 81-year-old white female who is brought into the ED via wheelchair accompanied by her daughter. Daughter reports when she arrived home from work this evening her mother indicated that she injured her right little toe. When the daughter looked at the toe she noted that the toenail was almost completely avulsed. Patient's mother does have residual memory problems from a previous CVA and does not remember what happened. Currently patient is complaining of a throbbing pain in the area of the little toe. She rates her discomfort 7/10. Her pain is nonradiating. Her pain worsens with palpation throughout the little toe. She has not identified any alleviating factors related to the pain. Daughter reports she has not taken medication for pain prior to arrival at the hospital. Patient denies any other foot pain, foot/toe weakness/numbness/tingling. Review of Systems: As noted above in history of present illness. 5 body systems were reviewed and found to be negative as noted above. Past Medical History: (1) Anxiety (2) Aortic stenosis (3) blood clots (4) Chest pain (5) Confusion (6) CVA (7) Depressive disorder, not elsewhere classified (8) Diabetes (9) Heart disease (10) History of - tubal ligation (11) Hypertension (12) Kidney stone (13) stomach problems (14) Stroke (15) Thumb laceration (16) Weakness Surgical Problems: (1) H/O: hysterectomy Current Medications: Medications Dose Route/Sig Max Daily Dose Days Date Category Tolterodine Tartrate 2 Mg Tab 2 Mg PO BID 12/27/16 Reported Lopressor (Metoprolol Tartrate) 25 Mg Tab 12.5 Mg PO BID 12/27/16 Reported Miralax (Polyethylene Glycol 3350) 1 Pow Pow 17 Gm PO DAILY PRN 12/27/16 Reported Coq-10 (Coenzyme Q10 (Ubidecarenone)) 100 Mg Cap 100 Mg PO QAM 10/31/16 Reported Stool Softener (Sennosides-Docusate Sodium) 1 Tab Tab 1 Tab PO HS 08/20/16 Reported Tylenol (Acetaminophen) 325 Mg Tab 650 Mg PO Q4 PRN 08/20/16 Reported Risperidone 0.5 Mg Tab 0.5 Mg PO TID 08/20/16 Reported Lipitor (Atorvastatin Calcium) 20 Mg Tab 10 Mg PO QPM 06/04/15 Reported Vitamin D (Cholecalciferol) 2,000 Unit Tab 1 Tab PO QAM 06/04/15 Reported Aspirin Ec (Aspirin) 81 Mg Tab 81 Mg PO QAM 04/30/15 Reported Mag-Ox (Magnesium Oxide) 400 Mg Tab 400 Mg PO QPM 09/03/14 Reported Allergies to Medications: Enalapril, escitalopram. Social History: Patient is not employed; she lives with her daughter; she denies tobacco use. Tetanus Immunization Status: Daughter reports up-to-date. Physical Examination: Vital Signs: Date Time Temp Pulse Resp B/P (MAP) Pulse Ox O2 Delivery O2 Flow Rate FiO2 01/24/17 20:15 74 18 152/117 97 01/24/17 16:57 36.7 77 20 126/70 97 Room Air GENERAL: 81-year-old female in mild distress due to pain, nontoxic-appearing, afebrile and hemodynamically stable. NEUROLOGICAL: Awake, alert and oriented to person, place only. Answering questions appropriately and following my commands. SKIN: Warm, dry and pink. Right Foot: Near complete right little toe toenail avulsion. No active bleeding. RIGHT FOOT: Please note soft tissue injury as described above under SKIN. No gross bony deformity. Mild tenderness over the fifth metatarsal and the entire little toe. I do not appreciate any bony deformity or crepitus. Throughout the toe the skin was warm and pink and capillary refill is brisk. She was able to distinguish some sensation but not all sensation in the little toe. ED Course: Patient is assessed as noted above. Patient's medication list was reviewed. Right Foot X-Rays: Were read by myself and the radiologist and shows no acute fractures or dislocations. Toenail Repair: Complexity: Basic Verbal consent was obtained after the risks and benefits were explained. A digital block was performed with 4.5 mL of buffered 1% lidocaine. The skin was prepped with betadine and a sterile field set. The nail was not attached to the nailbed so it was easily removed with iris scissors. I then cleaned the nail of all excessive tissues. The wound was explored for foreign bodies and none found. Copious irrigation was performed using sterile saline. With direct pressure the bleeding subsided. No nail bed lacerations were noted. Debridement was not performed. I was then able to place the nail back into position and under the proximal nail fold. The nail was sutured in place with 4-0 Ethilon with 2 simple interrupted sutures over the lateral nail folds. Hemostasis and excellent approximation was achieved. Antibacterial ointment and a sterile dressing applied. No complications and the patient tolerated the procedure well. Patient and daughter were educated about tonight's findings and instructed on her treatment plan; daughter verbalizes understanding and agreement with this plan. Clinical Impression: Avulsion of the right fifth toenail. Disposition: Patient discharged home in stable condition; prior to departure he was reassessed and subjectively reported she was pain-free. Plan: Comfort measures, wound care, and signs of infection were discussed with the patient and her daughter. Daughter was encouraged to have her mother follow-up with her family physician for recheck and possible suture removal in 10-12 days. Daughter was encouraged to have her mother return to the ED for any signs of infection or any new/concerning symptoms.
== END 2017-01-24 20:16 | disposition home or self-care (01) ==
LOC: C.EDB 16:51 → C.EDD 20:16
DX: S91.204A Unspecified open wound of right lesser toe(s) with damage to nail, initial encounter (principal); X58.XXXA Exposure to other specified factors, initial encounter; Y92.9 Unspecified place or not applicable; F41.9 Anxiety disorder, unspecified; I35.0 Nonrheumatic aortic (valve) stenosis; F32.9 Major depressive disorder, single episode, unspecified; E11.9 Type 2 diabetes mellitus without complications; I11.9 Hypertensive heart disease without heart failure; Z87.442 Personal history of urinary calculi; Z86.73 Personal history of transient ischemic attack (TIA), and cerebral infarction without residual deficits; Z79.82 Long term (current) use of aspirin; Z79.899 Other long term (current) drug therapy

== ENCOUNTER → 2017-01-26 | Outpatient (CLI) | payer OTHER, BC ==
[~2017-01-26] MED LIST changes: -PRNJ PO
== END | disposition home or self-care (01) ==
LOC: C.LABSPEC 17:04
PROVIDERS: ATTEND Nurse Practitioner Family
DX: R32 Unspecified urinary incontinence (principal); N39.0 Urinary tract infection, site not specified

== ENCOUNTER 2017-04-16 14:04 | Inpatient (IN) | payer OTHER, BC ==
[~2017-04-16] VITALS: Ht 165.1 cm; Wt 76.1 kg
--- NOTE | 2017-04-16 14:08 | EMERGENCY ROOM VISIT NOTE ---
History Report prepared by Lizibdian: Inna Jackson Under the Supervision of: Dr. Sunny Silveira M.D. First contact with patient: 13:59 Stated Complaint: UNRESPONSIVE/SHALLOW History of Present Illness The patient is an 81 year old white female with a past medical history of anxiety, HLV, CAD, CVA, DM, HTN, aortic stenosis and dementia who presents to the ED with a cc of unresponsiveness beginning prior to arrival. Positive chest pain. She was brought to the ED via EMS from a Physical Therapy appointment. EMS reports the patient is at [facility] for an unknown neurological issue. She fed herself this morning and was "fine". She became unresponsive while visiting with family prior to arrival. Her BSG was 168 in the field and her BP was 135/70. Her heart rate has been in the 70's. She has mumbled intermittently but EMS states they cannot make out words very well. The patient is able to state her name here in the ED and rouses to a sternum rub. She does take a daily baby Aspirin. Source of History: patient, EMS Onset: UPPER CASER Position: other (global) Timing: resolved Associated Symptoms: + chest pain Review of Systems See HPI for pertinent positives and negatives. A total of ten systems were reviewed and were otherwise negative. Past Medical & Surgical Medical Problems: (1) Anxiety (2) Aortic stenosis (3) blood clots (4) Chest pain (5) Confusion (6) CVA (7) Depressive disorder, not elsewhere classified (8) Diabetes (9) Heart disease (10) History of - tubal ligation (11) Hypertension (12) Kidney stone (13) stomach problems (14) Stroke (15) Thumb laceration (16) Unresponsive episode (17) Weakness Surgical Problems: (1) H/O: hysterectomy Social History Alcohol Use: none Drug Use: none Marital Status: Housing Status: lives with family Occupation Status: retired Current/Historical Medications Scheduled Aspirin (Aspirin Ec), 81 MG PO QAM Atorvastatin (Lipitor), 10 MG PO QPM Cholecalciferol (Vitamin D), 1 TAB PO QAM Coenzyme Q10 (Ubidecarenone) (Co Q10), 1 CAP PO DAILY Diclofenac Sodium (Topical) (Voltaren 1% Top Gel), 1 APPLN TOP QID Docusate Sodium (Colace), 1 CAP PO BID Magnesium Oxide (Mag-Ox), 400 MG PO QPM Metoprolol Tartrate (Lopressor) (Lopressor), 12.5 MG PO BID Polyethylene Glycol 3350 (Miralax), 17 GM PO HS Risperidone (Risperidone), 0.5 MG PO TID Tolterodine Tartrate (Tolterodine Tartrate), 2 MG PO BID Scheduled PRN Acetaminophen (Tylenol), 650 MG PO Q4 PRN for Pain Magnesium Hydroxide (Milk Of Magnesia), 30 ML PO for Constipation Allergies Coded Allergies: Enalapril (Verified Allergy, Unknown, Unknown, 04/16/17) Escitalopram (Verified Adverse Reaction, Unknown, Hallucinations, 04/16/17) Physical Exam Vital Signs Date Time Temp Pulse Resp B/P (MAP) Pulse Ox O2 Delivery O2 Flow Rate FiO2 04/16/17 16:00 91 18 116/75 99 Room Air 04/16/17 15:49 99 Room Air 04/16/17 14:38 95 20 112/65 94 Nasal Cannula 3.0 04/16/17 14:21 96 Nasal Cannula 3.0 04/16/17 14:12 94 Room Air 04/16/17 14:12 36.4 100 26 133/79 94 Room Air 04/16/17 14:12 101 Physical Exam GENERAL: Awake, alert, well-appearing, NAD HENT: Normocephalic, atraumatic. EYES: Normal conjunctiva. Sclera non-icteric. NECK: Supple. No nuchal rigidity. FROM. RESPIRATORY: CTAB, no rhonchi, wheezing, crackles CARDIAC: RRR, no MRG ABDOMEN: Soft, NTND, BS+ MSK: Midline sternotomy scar. No chest wall TTP, no LE edema NEURO: GCS 14, CN 2-12 intact. Patient intermittently responds to commands, moves all 4 extremities but not with symmetric strength. Partially traced weakness of the right upper and left lower extremity. SKIN: No rash or jaundice noted. Medical Decision & Procedures ER Provider Diagnostic Interpretation: Bedside Ultrasound shows mild RV dilation, decent squeeze, no pericardial effusion, bilateral lung slide present with no b-lines. Radiology results as stated below per my review and radiologist interpretation: CHEST ONE VIEW PORTABLE CLINICAL HISTORY: EVALUATE WEAKNESS dysphagia COMPARISON STUDY: 04/13/2017 FINDINGS: Mild stable cardiomegaly. Prior median sternotomy. Slight chronic interstitial prominence. No focal infiltrate. IMPRESSION: Chronic change. No acute process. The above report was generated using voice recognition software. It may contain grammatical, syntax or spelling errors. Electronically signed by: Adrian Stevens M.D. 04/16/2017 2:25 PM CHEST ONE VIEW PORTABLE CLINICAL HISTORY: EVALUATE WEAKNESS dysphagia COMPARISON STUDY: 04/13/2017 FINDINGS: Mild stable cardiomegaly. Prior median sternotomy. Slight chronic interstitial prominence. No focal infiltrate. IMPRESSION: Chronic change. No acute process. The above report was generated using voice recognition software. It may contain grammatical, syntax or spelling errors. Electronically signed by: Adrian Stevens M.D. 04/16/2017 2:25 PM Laboratory Results 04/16/17 14:15 Red Blood Count 3.82, Mean Corpuscular Volume 89.3, Mean Corpuscular Hemoglobin 29.3, Mean Corpuscular Hemoglobin Concent 32.8, Mean Platelet Volume 9.9, Neutrophils (%) (Auto) 66.1, Lymphocytes (%) (Auto) 20.3, Monocytes (%) (Auto) 11.5, Eosinophils (%) (Auto) 1.6, Basophils (%) (Auto) 0.2, Neutrophils # (Auto ) 6.47, Lymphocytes # (Auto) 1.99, Monocytes # (Auto) 1.13, Eosinophils # (Auto ) 0.16, Basophils # (Auto) 0.02 04/16/17 14:15 Test 04/16/17 14:10 04/16/17 14:15 04/16/17 14:23 04/16/17 14:24 White Blood Count 9.80 K/uL (4.8-10.8) Red Blood Count 3.82 M/uL (4.2-5.4) Hemoglobin 11.2 g/dL (12.0-16.0) Hematocrit 34.1 % (37-47) Mean Corpuscular Volume 89.3 fL (80-100) Mean Corpuscular Hemoglobin 29.3 pg (25-34) Mean Corpuscular Hemoglobin Concent 32.8 g/dl (32-36) Platelet Count 116 K/uL (130-400) Mean Platelet Volume 9.9 fL (7.4-10.4) Neutrophils (%) (Auto) 66.1 % Lymphocytes (%) (Auto) 20.3 % Monocytes (%) (Auto) 11.5 % Eosinophils (%) (Auto) 1.6 % Basophils (%) (Auto) 0.2 % Neutrophils # (Auto) 6.47 K/uL (1.4-6.5) Lymphocytes # (Auto) 1.99 K/uL (1.2-3.4) Monocytes # (Auto) 1.13 K/uL (0.11-0.59) Eosinophils # (Auto) 0.16 K/uL (0-0.5) Basophils # (Auto) 0.02 K/uL (0-0.2) RDW Standard Deviation 42.8 fL (36.4-46.3) RDW Coefficient of Variation 13.2 % (11.5-14.5) Immature Granulocyte % (Auto) 0.3 % Immature Granulocyte # (Auto) 0.03 K/uL (0.00-0.02) Prothrombin Time 11.0 SECONDS (9.0-12.0) Prothromb Time International Ratio 1.0 (0.9-1.1) Activated Partial Thromboplast Time 26.0 SECONDS (21.0-31.0) Partial Thromboplastin Ratio 1.0 Estimated GFR () 51.0 Estimated GFR (Non- 44.0 BUN/Creatinine Ratio 27.4 (10-20) Calcium Level 8.9 mg/dl (8.5-10.1) Phosphorus Level 3.8 mg/dl (2.5-4.9) Magnesium Level 2.1 mg/dl (1.8-2.4) Total Bilirubin 0.7 mg/dl (0.2-1) Direct Bilirubin 0.3 mg/dl (0-0.2) Aspartate Amino Transf (AST/SGOT) 40 U/L (15-37) Alanine Aminotransferase (ALT/SGPT) 32 U/L (12-78) Alkaline Phosphatase 136 U/L (45-117) Troponin I 0.059 ng/ml (0-0.045) Pro-B-Type Natriuretic Peptide 529 pg/ml (0-1800) Total Protein 6.7 gm/dl (6.4-8.2) Albumin 2.8 gm/dl (3.4-5.0) Lipase 130 U/L (73-393) Thyroid Stimulating Hormone (TSH) 3.400 uIu/ml (0.300-4.500) Bedside Hemoglobin 11.2 g/dl (12.0-16.0) Bedside Hematocrit 33 % (37-47) Bedside Sodium 138 mEq/L (135-144) Bedside Potassium 4.1 mEq/L (3.3-5.0) Bedside Chloride 101 mEq/L (101-112) Bedside Total CO2 25 mEq/l (24-31) Anion Gap 17.0 mmol/L (16-25) Bedside Blood Urea Nitrogen 29 mg/dl (7-18) Bedside Creatinine 1.2 mg/dl (0.6-1.3) Bedside Glucose (other) 165 mg/dl (70-99) Bedside Ionized Calcium (Shelly) 1.14 mmol/l (1.12-1.32) Bedside Troponin I 0.040 ng/ml (0-0.045) Test 04/16/17 15:24 Bedside Lactic Acid Venous 1.36 mmol/L (0.90-1.70) Laboratory results reviewed by me Medications Administered Medications (Trade) Dose Ordered Sig/Shaggy Route Start Time Stop Time Status Last Admin Dose Admin Aspirin (Aspirin Chew) 324 mg NOW STAT PO 04/16/17 15:30 04/16/17 15:32 DC 04/16/17 15:49 324 MG ECG Indication: other (unresponsive) Rate (beats per minute): 100 Rhythm: sinus tachycardia Findings: Q waves (Inferior), other (Wide QRS, no Sgarbossa, T waves in lead 1 and AVL) Change: no significant change (No change from 04/13/17) ED Course 1403: The patient was evaluated in room B1. A complete history and physical exam was performed. 1443: I reevaluated the patient. She is resting and family is at the bedside. I discussed my recommendation the patient remain in the hospital for further evaluation and management and she and her family verbalized complete understanding and agreement. 1530: Aspirin 324 mg PO. 1550: I discussed the patients case with Dr. Charles, [facility] Hospitalist. The patient will be further evaluated. Medical Decision The patient is an 81 year old white female with a past medical history of anxiety, HLV, CAD, CVA, DM, HTN, aortic stenosis and dementia who presents to the ED with a cc of unresponsiveness beginning prior to arrival. Triage Nursing notes reviewed. The patient's presentation and history were concerning for cardiac ischemia, aortic dissection, pulmonary embolism, pneumonia, pneumothorax, musculoskeletal , infections, pericarditis, myocarditis, esophageal rupture, gastrointestinal, metabolic, infection, hypo/hyperglycemia, electrolyte abnormalities, cardiac sources, intracerebral event, toxicologic, neurologic, as well as others were entertained. Patient was seen and evaluated at the bedside. Patient is a multiple medical problems and was recently placed for additional treatment at [facility] recurrent falls. Patient purportedly was not breathing thus she was being bagged upon arrival. Upon arrival the patient did have bilateral breath sounds and patient responded to painful stimuli localizing to pain. Patient subsequently was able to open her eyes and was able to move some of her extremities although her right upper extremity and left lower extremity or little finger. Due to the unknown time of onset and the prior history of CVAs thus no TPA was given at this time. Patient did have blood work that was completed along with an EKG, VBG, lactate, and urinalysis. Patient chest x-ray negative. Patient CT does show old bilateral MCA infarcts, but is negative acute. Patient's EKG did show a left bundle branch block with T-wave inversions in the high lateral leads which is unchanged. Patient does have an elevated troponin thus was given a full dose aspirin. Patient not have a very elevated white blood cell count. Patient did have an elevated BUN/creatinine ratio. I did speak with the hospitalist who agreed to further evaluate and treat the patient. Head Trauma GCS Score: 14 Medication Reconcilliation Current Medication List: was personally reviewed by me Blood Pressure Screening Patient's blood pressure: Normal blood pressure Blood pressure disposition: Did not require urgent referral Consults Time Called: 1540 Consulting Physician: Dr. Charles [facility] Hospitalist Returned Call: 1550 I discussed the patients case with Dr. Charles [facility] Hospitalist. The patient will be further evaluated. Impression Primary Impression: Atypical chest pain Additional Impressions: Elevated troponin Alteration consciousness Respiratory distress Scribe Attestation The scribe's documentation has been prepared under my direction and personally reviewed by me in its entirety. I confirm that the note above accurately reflects all work, treatment, procedures, and medical decision making performed by me. Departure Information Dispostion Being Evaluated By Hospitalist Problem Qualifiers
--- NOTE | 2017-04-16 14:26 | DIAGNOSTIC IMAGING REPORT ---
CHEST ONE VIEW PORTABLE CLINICAL HISTORY: EVALUATE WEAKNESS dysphagia COMPARISON STUDY: 04/13/2017 FINDINGS: Mild stable cardiomegaly. Prior median sternotomy. Slight chronic interstitial prominence. No focal infiltrate. IMPRESSION: Chronic change. No acute process. The above report was generated using voice recognition software. It may contain grammatical, syntax or spelling errors. Electronically signed by: Adrian Stevens M.D. 04/16/2017 2:25 PM Dictated Date/Time: 04/16/2017 2:24 PM
[2017-04-16 14:35] LABS: ISTAT CREATININE 1.2 mg/dl (0.6-1.3); ISTAT HEMOGLOBIN 11.2 g/dl (12.0-16.0); ISTAT IONIZED CALCIUM 1.14 mmol/l (1.12-1.32)
[2017-04-16 14:37] LABS: BASO % 0.2 %; BASO ABS # 0.02 K/uL (0-0.2); COMPLETE YES; EOS % 1.6 %; HEMATOCRIT 34.1 % (37-47); IG% 0.3 %; LYMPH % 20.3 %; LYMPH ABS # 1.99 K/uL (1.2-3.4); MEAN CELL VOLUME 89.3 fL (80-100); MEAN CORPUSCULAR HEMOGLOBIN 29.3 pg (25-34); MEAN CORPUSCULAR HGB CONC 32.8 g/dl (32-36); MEAN PLATELET VOLUME 9.9 fL (7.4-10.4); MONO % 11.5 %; NEUT % 66.1 %; PLATELET COUNT 116 K/uL (130-400); RED BLOOD COUNT 3.82 M/uL (4.2-5.4)
--- NOTE | 2017-04-16 14:41 | DIAGNOSTIC IMAGING REPORT ---
HEAD CT NONCONTRAST CT DOSE: 638.56 mGycm HISTORY: Altered mental status. Weakness. TECHNIQUE: Multiaxial CT images of the head were performed without the use of intravenous contrast. Automated exposure control was utilized for this study. A dose lowering technique was utilized adhering to the principles of ALARA. Comparison: Head CT 04/13/2017. Findings: The paranasal sinuses and mastoid air cells are clear. The calvarium and skull base are intact. There is no mass, hematoma, midline shift, acute infarct. White matter hypodensity is nonspecific but suggestive of microvascular ischemic change. The ventricles and sulci demonstrate mild age-related involutional changes. Old bilateral MCA territory infarcts, right greater than left. There is also an old lacunar infarct seen within the left basal ganglia. This remains unchanged. Impression: No significant change compared to the prior study. No acute intracranial abnormality. Old infarcts as described above. Electronically signed by: Madan Ortiz M.D. 04/16/2017 2:40 PM Dictated Date/Time: 04/16/2017 2:34 PM
[2017-04-16] MEDS ORDERED: DOCU-94 PO (14:46)
[2017-04-16] MEDS ORDERED: POLY335019 PO (14:46)
[2017-04-16] MEDS ORDERED: DICL1GEL12 TOP (14:46)
[2017-04-16] MEDS ORDERED: COEN1CAP28 PO (14:46)
[2017-04-16 14:57] LABS: ALT/SGPT 32 U/L (12-78); AST/SGOT 40 U/L (15-37); BLOOD UREA NITROGEN 32 mg/dl (7-18); BUN/CREATININE RATIO 27.4 (10-20); CALCIUM 8.9 mg/dl (8.5-10.1); CARBON DIOXIDE 25 mmol/L (21-32); CHLORIDE 102 mmol/L (98-107); CREATININE 1.17 mg/dl (0.60-1.20); GLUCOSE 157 mg/dl (70-99); MAGNESIUM 2.1 mg/dl (1.8-2.4); SODIUM 137 mmol/L (136-145)
[2017-04-16 15:13] LABS: ALKALINE PHOSPHATASE 136 U/L (45-117); PHOSPHORUS 3.8 mg/dl (2.5-4.9)
[2017-04-16] MEDS ORDERED: ASPIRIN 324 MG CHEW PO STA (15:30)
[2017-04-16 15:49] VITALS: O2SAT 99; Ht 165.1 cm; Wt 76.1 kg
--- NOTE | 2017-04-16 16:46 | History and Physical ---
History & Physical Date & Time of Service: Apr 16, 2017 at 16:35 Chief Complaint: Unresponsive/Shallow Primary Care Physician: RV. Orourke MD History of Present Illness Source: patient, family 81 y/o F Hx CVA, DM, HTN, dementia, frequent falls - recently hospitalized following a fall due to persistent R hip pain and immobility without fracture. Pt was D/Cd to [facility] 04/13. She was sitting in her chair undergoing a rehab activity when she suddenly lost consciousness and slouched forward. She was unresponsive for several minutes and was reported to be hypoventilating when EMS arrived. The pt was treated with a bag mask and gradually regained consciousness on arrival to the ER. She remains lethargic at the time of admission and is not able to contribute to the ROS/HPI. Family are present at bedside and confirm that aside from complaining of persistent L hip and leg pain , she did not have any other acute symptoms prior to losing consciousness. Initial labs reveal an elevated troponin, however, previous labs indicate this may be chronic. Past Medical/Surgical History 1) History of CVA 2) Aortic stenosis - bioprosthetic AVR 3) DVT 4) DM II 5) HTN 6) Frequent falls 7) Vascular dementia Surgical Problems: 1) Hysterectomy 2) AVR Family History Diabetes mellitus FH: heart disease Hypertension Social History Smoking Status: Never Smoker Drug Use: none Marital Status: Housing status: lives with family Occupational Status: retired Immunizations History of Influenza Vaccine: Yes Influenza Vaccine Date: Apr 01, 2011 History of Tetanus Vaccine?: utd Tetanus Immunization Date: Mar 30, 2009 History of Pneumococcal: Yes Pneumococcal Date: Apr 02, 2011 History of Hepatitis B Vaccine: Unknown Multi-Drug Resistant Organisms History of MDRO: No Allergies Coded Allergies: Enalapril (Verified Allergy, Unknown, Unknown, 04/16/17) Escitalopram (Verified Adverse Reaction, Unknown, Hallucinations, 04/16/17) Home Medications Scheduled Aspirin (Aspirin Ec), 81 MG PO QAM Atorvastatin (Lipitor), 10 MG PO QPM Cholecalciferol (Vitamin D), 1 TAB PO QAM Coenzyme Q10 (Ubidecarenone) (Co Q10), 1 CAP PO DAILY Diclofenac Sodium (Topical) (Voltaren 1% Top Gel), 1 APPLN TOP QID Docusate Sodium (Colace), 1 CAP PO BID Magnesium Oxide (Mag-Ox), 400 MG PO QPM Metoprolol Tartrate (Lopressor) (Lopressor), 12.5 MG PO BID Polyethylene Glycol 3350 (Miralax), 17 GM PO HS Risperidone (Risperidone), 0.5 MG PO TID Tolterodine Tartrate (Tolterodine Tartrate), 2 MG PO BID Scheduled PRN Acetaminophen (Tylenol), 650 MG PO Q4 PRN for Pain Magnesium Hydroxide (Milk Of Magnesia), 30 ML PO for Constipation Review of Systems ROS is obtained from family Constitutional: No fever, No chills, No sweats Eyes: No worsening of vision ENT: No hearing loss, No nasal symptoms Respiratory: No cough, No wheezing Cardiovascular: No chest pain, No orthopnea, No PND Abdomen: No pain, No vomiting Musculoskeletal: + joint pain (L hip and leg pain for > 1 wk) Genitourinary - Female: No dysuria, No urinary frequency, No urinary urgency Neurologic: + memory loss, + weakness, + problem reported (Unresponsive episode ), No paralysis Psychiatric: No depression symptoms Endocrine: No fatigue Hematologic / Lymphatic: No abnormal bleeding/bruising Integumentary: No rash Allergic / Immunologic: No environmental allergies Physical Exam Vital Signs Date Time Temp Pulse Resp B/P (MAP) Pulse Ox O2 Delivery O2 Flow Rate FiO2 04/16/17 16:00 91 18 116/75 99 Room Air 04/16/17 15:49 99 Room Air 04/16/17 14:38 95 20 112/65 94 Nasal Cannula 3.0 04/16/17 14:21 96 Nasal Cannula 3.0 04/16/17 14:12 94 Room Air 04/16/17 14:12 36.4 100 26 133/79 94 Room Air 04/16/17 14:12 101 General Appearance: WD/WN Head: normocephalic Eyes: normal inspection ENT: normal ENT inspection, pharynx normal Neck: supple, thyroid normal Respiratory/Chest: chest non-tender, lungs clear, normal breath sounds Cardiovascular: regular rate, rhythm Abdomen/GI: normal bowel sounds, non tender, soft Back: normal inspection Extremities/Musculoskelatal: + pertinent finding (She professed pain with passive movement of either lower extremity - there was no noted tenderness to palpation) Neurologic/Psych: + pertinent finding (Lthargic - AAO x 1 - may be baseline - no new focal deficits are noted ) Skin: normal color Diagnostics Laboratory Results Results Past 24 Hours Test 04/16/17 14:10 04/16/17 14:15 04/16/17 14:23 04/16/17 14:24 Range/Units White Blood Count 9.80 4.8-10.8 K/uL Red Blood Count 3.82 4.2-5.4 M/uL Hemoglobin 11.2 12.0-16.0 g/dL Hematocrit 34.1 37-47 % Mean Corpuscular Volume 89.3 80-100 fL Mean Corpuscular Hemoglobin 29.3 25-34 pg Mean Corpuscular Hemoglobin Concent 32.8 32-36 g/dl Platelet Count 116 130-400 K/uL Mean Platelet Volume 9.9 7.4-10.4 fL Neutrophils (%) (Auto) 66.1 % Lymphocytes (%) (Auto) 20.3 % Monocytes (%) (Auto) 11.5 % Eosinophils (%) (Auto) 1.6 % Basophils (%) (Auto) 0.2 % Neutrophils # (Auto) 6.47 1.4-6.5 K/uL Lymphocytes # (Auto) 1.99 1.2-3.4 K/uL Monocytes # (Auto) 1.13 0.11-0.59 K/uL Eosinophils # (Auto) 0.16 0-0.5 K/uL Basophils # (Auto) 0.02 0-0.2 K/uL RDW Standard Deviation 42.8 36.4-46.3 fL RDW Coefficient of Variation 13.2 11.5-14.5 % Immature Granulocyte % (Auto) 0.3 % Immature Granulocyte # (Auto) 0.03 0.00-0.02 K/uL Prothrombin Time 11.0 9.0-12.0 SECONDS Prothromb Time International Ratio 1.0 0.9-1.1 Activated Partial Thromboplast Time 26.0 21.0-31.0 SECONDS Partial Thromboplastin Ratio 1.0 Sodium Level 137 136-145 mmol/L Potassium Level 4.0 3.5-5.1 mmol/L Chloride Level 102 98-107 mmol/L Carbon Dioxide Level 25 21-32 mmol/L Anion Gap 10.0 17.0 16-25 mmol/L Blood Urea Nitrogen 32 7-18 mg/dl Creatinine 1.17 0.60-1.20 mg/dl Estimated GFR () 51.0 Estimated GFR (Non- 44.0 BUN/Creatinine Ratio 27.4 10-20 Random Glucose 157 70-99 mg/dl Calcium Level 8.9 8.5-10.1 mg/dl Phosphorus Level 3.8 2.5-4.9 mg/dl Magnesium Level 2.1 1.8-2.4 mg/dl Total Bilirubin 0.7 0.2-1 mg/dl Direct Bilirubin 0.3 0-0.2 mg/dl Aspartate Amino Transf (AST/SGOT) 40 15-37 U/L Alanine Aminotransferase (ALT/SGPT) 32 12-78 U/L Alkaline Phosphatase 136 45-117 U/L Troponin I 0.059 0-0.045 ng/ml Pro-B-Type Natriuretic Peptide 529 0-1800 pg/ml Total Protein 6.7 6.4-8.2 gm/dl Albumin 2.8 3.4-5.0 gm/dl Lipase 130 73-393 U/L Thyroid Stimulating Hormone (TSH) 3.400 0.300-4.500 uIu/ml Bedside Hemoglobin 11.2 12.0-16.0 g/dl Bedside Hematocrit 33 37-47 % Bedside Sodium 138 135-144 mEq/L Bedside Potassium 4.1 3.3-5.0 mEq/L Bedside Chloride 101 101-112 mEq/L Bedside Total CO2 25 24-31 mEq/l Bedside Blood Urea Nitrogen 29 7-18 mg/dl Bedside Creatinine 1.2 0.6-1.3 mg/dl Bedside Glucose (other) 165 70-99 mg/dl Bedside Ionized Calcium (Shelly) 1.14 1.12-1.32 mmol/l Bedside Troponin I 0.040 0-0.045 ng/ml Test 04/16/17 15:24 Range/Units Bedside Lactic Acid Venous 1.36 0.90-1.70 mmol/L Microbiology Results 04/16/17 Blood Culture, Ordered Pending 04/16/17 Blood Culture, Ordered Pending 04/16/17 Urine Culture, Ordered Pending Diagnostic Radiology CT head: Old bilateral MCA territory infarcts, right greater than left. There is also an old lacunar infarct seen within the left basal ganglia. No significant change compared to the prior study. No acute intracranial abnormality. EKG Sinus tach, LBBB, no significant change from previous. Impression Assessment and Plan 81 y/o F Hx CVA, DM, HTN, dementia, frequent falls - recently hospitalized following a fall due to persistent R hip pain and immobility without fracture. Pt was D/Cd to [facility] 04/13. She was sitting in her chair undergoing a rehab activity when she suddenly lost consciousness and slouched forward. She was unresponsive for several minutes and was reported to be hypoventilating when EMS arrived. The pt was treated with a bag mask and gradually regained consciousness on arrival to the ER. She remains lethargic at the time of admission and is not able to contribute to the ROS/HPI. Family are present at bedside and confirm that aside from complaining of persistent L hip and leg pain , she did not have any other acute symptoms prior to losing consciousness. Initial labs reveal an elevated troponin, however, previous labs indicate this may be chronic. 1) LOC - unresponsive - possible hypoventilation with LOC - Pt may have suffered an arrhythmia or alternatively, this may have been a vasovagal episode in response to pain in her L leg during PT. Although she would be prone to seizures owing to a previous CVA and dementia, it would not be consistent with her presentation. Her respiratory status throughout is not clear and she is currently awake and alert - at her baseline per family. We will monitor on telemetry overnight. We may obtain an echo with an upward trend in her troponin. 2) Troponin above baseline - she has had previous marginal troponins which were not attributed to an acute FL - her EKG is nondiagnostic due to a LBBB but certainly bragg not meet Sgarbossa criteria. We will trend her troponins - she will remain on ASA, Statin Tx and a B jovanny. An echo will be obtained with an further trop elevation. 3) A history of DM is reported which is apparently managed with diet - there was no reported hypoglycemia during her LOC. 4) Hip pain - persistent - would consider a CT to evaluate for occult fracture prior to DC. PT / OT consulted. 5) HTN - cont Metoprolol 6) Dementia - the pt suffers from considerable anxiety and can become agitated per family - she will remain on Remeron - a low-dose sedative can be provided if necessary. Full code - Heparin prophylaxis Total time for this admit including review of labs, meds, imaging - discussion with pt and ER attending - 40 min Level of Care Telemetry Advanced Directives Existing Living Will: Yes Existing Power of Yard Inspector: Yes Resuscitation Status FULL RESUSCITATION VTE Prophylaxis Given or contraindicated: Unfractionated heparin SQ
[2017-04-16] MEDS ORDERED: MoRPHine SULFATE 2 MG/ML CARP IV PRN (17:00)
[2017-04-16] MEDS ORDERED: MAGNESIUM HYDROXIDE SUSP 30 ML UDC PO PRN (17:00)
[2017-04-16] MEDS ORDERED: ALUMINUM/MAGNESIUM/SIMETH (MAALOX MAX) 30 ML UDC PO PRN (17:00)
[2017-04-16] MEDS ORDERED: POLYETHYLENE (MIRALAX) 17 GM PACK PO PRN (17:00)
[2017-04-16] MEDS ORDERED: ONDANSETRON INJ 2 MG/ML 2 ML VIAL IV PRN (17:00)
[2017-04-16] MEDS ORDERED: LORAZEPAM 2 MG/ML 1 ML VIAL IV PRN (17:45)
[2017-04-16 18:05] VITALS: BP 107/72; PULSE 84; TEMP 36.6; O2SAT 98
[2017-04-16] MEDS ORDERED: SODIUM CHLORIDE 0.9% 1000ML 1,000 ML IV SCH (19:00)
[2017-04-16] MEDS ORDERED: LORAZEPAM INJ 0.25 MG in SYRINGE 0.125 ML IV PRN (19:00)
[2017-04-16 19:18] VITALS: BP 116/79; PULSE 95; TEMP 36.5; O2SAT 99
[2017-04-16] MEDS ORDERED: IV FLUIDS COMPLETED PRN (20:00)
[2017-04-16] MEDS: DOCUSATE SODIUM 100 MG CAP PO SCH (20:34)
[2017-04-16] MEDS: MAGNESIUM OXIDE 400 MG TAB PO SCH (20:34)
[2017-04-16] MEDS: RISPERIDONE 0.5 MG TAB PO SCH (20:35)
[2017-04-16] MEDS: ATORVASTATIN 10 MG TAB PO SCH (20:35)
[2017-04-16] MEDS: TOLTERODINE TARTRATE 2 MG TAB PO SCH (20:35)
[2017-04-16] MEDS: METOPROLOL TARTRATE 25 MG TAB PO SCH (20:35)
[2017-04-16] MEDS ORDERED: HEPARIN SOD 5000 UNIT/0.5 ML CARP SQ SCH (22:00)
[2017-04-16] MEDS: ACETAMINOPHEN 325 MG TAB PO PRN (22:15)
[2017-04-16 23:50] VITALS: BP 112/77; PULSE 78; TEMP 36.5; O2SAT 97
[2017-04-17] MEDS ORDERED: HEPARIN IV LOW DOSE NO BOLUS STA (00:21)
--- NOTE | 2017-04-17 00:24 | Progress Note ---
Progress Note Date of Service Apr 17, 2017. Progress Note Increase of troponin to 0.633, this is significantly higher from patient's previous BL on review of previous labs Will place on the heparin drip - repeat troponin at 0500 and defer consult to cardio to day team
[2017-04-17] MEDS ORDERED: HEPARIN 25,000 UNIT/500ML D5W 500 ML IV PRN (01:15)
[2017-04-17 04:09] VITALS: BP 115/70; PULSE 68; TEMP 35.8; O2SAT 97
[2017-04-17 05:52] LABS: HEMATOCRIT 32.9 % (37-47); MEAN CELL VOLUME 89.9 fL (80-100); MEAN CORPUSCULAR HEMOGLOBIN 28.4 pg (25-34); MEAN CORPUSCULAR HGB CONC 31.6 g/dl (32-36); MEAN PLATELET VOLUME 10.3 fL (7.4-10.4); PLATELET COUNT 107 K/uL (130-400); RED BLOOD COUNT 3.66 M/uL (4.2-5.4); WHITE BLOOD COUNT 7.99 K/uL (4.8-10.8)
[2017-04-17 06:10] LABS: BUN/CREATININE RATIO 32.3 (10-20); CALCIUM 8.2 mg/dl (8.5-10.1); CREATININE 1.14 mg/dl (0.60-1.20); MAGNESIUM 2.2 mg/dl (1.8-2.4); POTASSIUM 4.3 mmol/L (3.5-5.1)
[2017-04-17 07:33] VITALS: BP 107/67; PULSE 73; TEMP 36.6; O2SAT 98
[2017-04-17 08:29] LABS: PARTIAL THROMBOPLASTIN RATIO 1.5
[2017-04-17] MEDS: ASPIRIN 81 MG ECTAB PO SCH (08:33)
[2017-04-17] MEDS: TOLTERODINE TARTRATE 2 MG TAB PO SCH ×2 (08:33→21:18)
[2017-04-17] MEDS: DOCUSATE SODIUM 100 MG CAP PO SCH ×2 (08:33→21:18)
[2017-04-17] MEDS: METOPROLOL TARTRATE 25 MG TAB PO SCH ×2 (08:34→21:18)
[2017-04-17] MEDS: RISPERIDONE 0.5 MG TAB PO SCH ×3 (08:35→21:17)
[2017-04-17] MEDS: ACETAMINOPHEN 325 MG TAB PO PRN (08:41)
[2017-04-17] MEDS ORDERED: HEPARIN IV BOLUS 4,500 UNIT in SYRINGE 0 ML IV ONE (11:00)
[2017-04-17 11:34] VITALS: BP 112/71; PULSE 67; TEMP 36.4; O2SAT 98
[2017-04-17 16:06] VITALS: BP 104/63; PULSE 76; TEMP 37; O2SAT 97
[2017-04-17 16:45] LABS: PARTIAL THROMBOPLASTIN RATIO 2.6
--- NOTE | 2017-04-17 17:32 | Progress Note ---
Subjective Date of Service: Apr 17, 2017. Subjective Pt evaluation today including: conversation w/ patient, conversation w/ family , physical exam, chart review, lab review, review of studies, review of inpatient medication list Problem List Medical Problems: (1) Abnormal EKG Status: Acute (2) Agitation Status: Acute (3) Alteration consciousness Status: Acute (4) Altered mental status Status: Acute (5) Atypical chest pain Status: Acute (6) Confused Status: Acute (7) Confusion Status: Acute (8) Dark stools Status: Acute (9) Elevated troponin Status: Acute (10) Fall Status: Acute (11) Head injury Status: Acute (12) Lumbar compression fracture Status: Acute (13) Precordial chest pain Status: Acute (14) Rectal bleeding Status: Acute (15) Respiratory distress Status: Acute (16) Toenail avulsion Status: Acute (17) Urinary tract infection Status: Acute (18) UTI (urinary tract infection) Status: Acute (19) UTI (urinary tract infection) Status: Acute Review of Systems Due to patient mental status review of system was unobtainable/unreliable We'll attempt to obtain review of system as needed from staff and family Medications Current Inpatient Medications Medications (Trade) Dose Ordered Sig/Shaggy Route Start Time Stop Time Status Last Admin Dose Admin Aspirin (Ecotrin Tab) 81 mg QAM PO 04/17/17 09:00 05/17/17 08:59 04/17/17 08:33 81 MG Atorvastatin Calcium (Lipitor Tab) 10 mg QPM PO 04/16/17 21:00 05/16/17 20:59 04/16/17 20:35 10 MG Docusate Sodium (coLACE CAP) 100 mg BID PO 04/16/17 21:00 05/16/17 20:59 04/17/17 08:33 100 MG Magnesium Oxide (Mag-Ox Tab) 400 mg QPM PO 04/16/17 21:00 05/16/17 20:59 04/16/17 20:34 400 MG Metoprolol Tartrate (Lopressor Tab) 12.5 mg BID PO 04/16/17 21:00 05/16/17 20:59 04/17/17 08:34 12.5 MG Risperidone (Risperdal Tab) 0.5 mg TID PO 04/16/17 21:00 05/16/17 20:59 04/17/17 13:49 0.5 MG Tolterodine Tartrate (Detrol Tab) 2 mg BID PO 04/16/17 21:00 05/16/17 20:59 04/17/17 08:33 2 MG Acetaminophen (Tylenol Tab) 650 mg Q4H PRN PO 04/16/17 17:00 05/16/17 16:59 04/17/17 08:41 650 MG Al Hydrox/Mg Hydrox/Simethicone (Maalox Max Susp) 15 ml Q4H PRN PO 04/16/17 17:00 05/16/17 16:59 Magnesium Hydroxide (Milk Of Magnesia Susp) 30 ml Q12H PRN PO 04/16/17 17:00 05/16/17 16:59 Ondansetron HCl (Zofran Inj) 4 mg Q6H PRN IV 04/16/17 17:00 05/16/17 16:59 Morphine Sulfate (MoRPHine SULFATE INJ) 2 mg Q30M PRN IV 04/16/17 17:00 04/30/17 16:59 Polyethylene (Miralax Powder Packet) 17 gm DAILY PRN PO 04/16/17 17:00 05/16/17 16:59 Lorazepam (Ativan Inj) 0.25 mg Q8H PRN IV 04/16/17 17:45 05/16/17 17:44 Lorazepam 0.25 mg/ Syringe 0.25 ml @ 1 mls/min Q4H PRN IV 04/16/17 19:00 05/16/17 18:59 Miscellaneous (Iv Fluids Completed) 1 ea PRN PRN N/A 04/16/17 20:00 04/16/18 19:59 Heparin Sodium/ Dextrose 500 ml @ 19 mls/hr Q24H PRN IV 04/17/17 01:15 05/17/17 01:14 04/17/17 01:23 16 MLS/HR Objective Vital Signs Date Time Temp Pulse Resp B/P (MAP) Pulse Ox O2 Delivery O2 Flow Rate FiO2 04/17/17 16:06 37.0 76 21 104/63 (77) 97 Nasal Cannula 2.5 04/17/17 11:59 Nasal Cannula 2.0 04/17/17 11:34 36.4 67 18 112/71 (85) 98 3.0 04/17/17 08:15 Nasal Cannula 2.0 04/17/17 07:33 36.6 73 18 107/67 (80) 98 2.0 04/17/17 04:30 Nasal Cannula 2.0 04/17/17 04:09 35.8 68 20 115/70 (85) 97 Nasal Cannula 2.0 04/16/17 23:50 36.5 78 18 112/77 (89) 97 2.0 04/16/17 23:50 Nasal Cannula 3.0 04/16/17 20:35 Nasal Cannula 3.0 04/16/17 19:18 36.5 95 16 116/79 (91) 99 Nasal Cannula 3.0 04/16/17 18:05 36.6 84 18 107/72 (84) 98 Nasal Cannula 3.0 04/16/17 17:46 89 17 106/73 98 04/16/17 17:16 89 17 106/73 98 Room Air Physical Exam General Appearance: WD/WN, + mild distress Eyes: normal inspection, EOMI ENT: normal ENT inspection, hearing grossly normal Neck: supple Respiratory/Chest: chest non-tender, lungs clear, normal breath sounds, no respiratory distress, no accessory muscle use Cardiovascular: regular rate, rhythm, no edema, no gallop, no JVD, no murmur Abdomen: normal bowel sounds, non tender, soft, no organomegaly, no pulsatile mass Extremities: + pertinent finding (unable to bend both knees, complaining of pain in both lower extremities) Neurologic/Psychiatric: 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 director II-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 as tested, normal mood/affect, + disoriented, + pertinent finding (confused, moaing from pain but unable to specify where is the pain) Skin: normal color, warm/dry, no rash Laboratory Results Last 24 Hours Test 04/16/17 20:47 04/16/17 23:04 04/17/17 05:25 04/17/17 06:50 Bedside Glucose 221 mg/dl 140 mg/dl Troponin I 0.633 ng/ml 0.376 ng/ml White Blood Count 7.99 K/uL Red Blood Count 3.66 M/uL Hemoglobin 10.4 g/dL Hematocrit 32.9 % Mean Corpuscular Volume 89.9 fL Mean Corpuscular Hemoglobin 28.4 pg Mean Corpuscular Hemoglobin Concent 31.6 g/dl RDW Standard Deviation 43.2 fL RDW Coefficient of Variation 13.2 % Platelet Count 107 K/uL Mean Platelet Volume 10.3 fL Sodium Level 137 mmol/L Potassium Level 4.3 mmol/L Chloride Level 105 mmol/L Carbon Dioxide Level 28 mmol/L Anion Gap 4.0 mmol/L Blood Urea Nitrogen 37 mg/dl Creatinine 1.14 mg/dl Est Creatinine Clear Calc Drug Dose 42.0 ml/min Estimated GFR () 52.6 Estimated GFR (Non- 45.4 BUN/Creatinine Ratio 32.3 Random Glucose 119 mg/dl Calcium Level 8.2 mg/dl Magnesium Level 2.2 mg/dl Test 04/17/17 07:32 04/17/17 11:18 04/17/17 15:55 04/17/17 16:38 Activated Partial Thromboplast Time 38.6 SECONDS 67.1 SECONDS Partial Thromboplastin Ratio 1.5 2.6 Bedside Glucose 141 mg/dl 137 mg/dl Assessment and Plan 81 years old lady with dementia, HTN, Hx of CVA, DMII and frequent falls. presented to the ED with syncope on field she was hypoventilating when she was unresponsive, requiring bag mask by paramedics. no evidence of losing pulse or BP Assessment: LOC / hypoventilation Positive troponin Hx of Bioprosthetic Aortic valve Hx of Grade I diastolic dysfunction Hip pain B/L knee pain multiple lumbar old compression fractures HTN DMII Hx of CVA Dementia Plan: continue telemtery giving her Hx of Bioprosthetic Aortic valve will order echo consult Dr. Rausch for possible arrythmia / positive trop trend troponin supportive care CT hip knee xrays consult psychiatrist for meds adjustment Urinalysis with reflex culture and sensitivity Full code - Heparin prophylaxis
--- NOTE | 2017-04-17 18:19 | DIAGNOSTIC IMAGING REPORT ---
R KNEE 1 OR 2 VIEWS ROUTINE, L KNEE 1 OR 2 VIEWS ROUTINE HISTORY: 81 years-old Female pain / s/p fall acute bilateral knee pain status post fall COMPARISON: None available TECHNIQUE: 2 views of the bilateral knees for a total of 4 images FINDINGS: RIGHT: Bones appear osteopenic. [Mental degenerative changes are noted, mild to moderate within the medial compartment and moderate to severe within the patellofemoral and lateral compartments. There is spurring of the tibial spines. No acute fracture or dislocation identified. Small joint effusion with mild soft tissue swelling. Vascular calcifications noted. LEFT: Tricompartment osteoarthritis is noted, which predominantly appears moderate throughout. The bones appear osteopenic. No acute fracture or dislocation identified. Small joint effusion. Vascular calcifications noted. IMPRESSION: 1. Small bilateral joint effusions without acute fracture or dislocation identified. 2. 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 3. Peripheral vascular disease. The above report was generated using voice recognition software. It may contain grammatical, syntax or spelling errors. Electronically signed by: Suraj Day M.D. 04/17/2017 6:17 PM Dictated Date/Time: 04/17/2017 6:15 PM
[2017-04-17 18:50] LABS: URINE APPEARANCE CLEAR (CLEAR); URINE BILIRUBIN NEG (NEG); URINE COLOR YELLOW; URINE EPITHELIAL CELL AUTO >30 /lpf (0-5); URINE NITRITE NEG (NEG); URINE SPECIFIC GRAVITY 1.024 (1.000-1.030); UROBILINOGEN NEG (NEG); ZZURINE CULT IF INDIC CATH YES
[2017-04-17 18:56] VITALS: BP 127/72; PULSE 86; TEMP 36.7; O2SAT 96
[2017-04-17 18:56] LABS: MANUAL MICROSCOPIC REQUIRED? NO; REVIEW REQ? NO
--- NOTE | 2017-04-17 20:28 | DIAGNOSTIC IMAGING REPORT ---
R HIP-LOWER EXTREMITY WITHOUT, L HIP-LOWER EXTREMITY WITHOUT HISTORY: 81 years-old Female pain / s/p fall acute right hip pain status post fall. COMPARISON: Pelvis radiograph 04/13/2017 TECHNIQUE: Multiple axial CT images of the bilateral hips were obtained without contrast. A dose lowering technique was used consistent with the principals of GEORGE. FINDINGS: RIGHT HIP: Bones appear mildly demineralized. Moderate right femoral acetabular osteoarthritis. There is spurring of the greater trochanter. No acute fracture or dislocation identified. There are degenerative changes of the pubic symphysis. No acute fracture of the imaged right hemipelvis identified. Vascular calcifications are noted. No acute intrapelvic abnormality identified. There are phleboliths of the pelvis. Uterus appears to be surgically absent. LEFT HIP: Small left hip joint effusion suggested with mild soft tissue swelling surrounding the acute fracture which involves the superior aspect of the greater trochanter which demonstrates minimal impaction without significant displacement or angulation nicely seen on image 192 series 2, image 66 series 400 and image 80 series 401. No fracture extension into the intertrochanteric region identified. The lesser trochanter appears intact. Moderate osteoarthritis. Acetabulum appears intact. The imaged left hemipelvis also appears intact. IMPRESSION: 1. Acute isolated fracture involves the superior portion of the left greater trochanter with minimal impaction and no significant displacement. No fracture extension into the intertrochanteric femur or femoral neck. Mild associated left hip soft tissue swelling. 2. No acute fracture or dislocation identified involving the pelvis or right hip. 3. Moderate degenerative changes of the bilateral femoral acetabular joints. 4. Bones appear osteopenic. The above report was generated using voice recognition software. It may contain grammatical, syntax or spelling errors. Electronically signed by: Suraj Day M.D. 04/17/2017 8:27 PM Dictated Date/Time: 04/17/2017 8:16 PM
[2017-04-17] MEDS: MAGNESIUM OXIDE 400 MG TAB PO SCH (21:17)
[2017-04-17] MEDS: ATORVASTATIN 10 MG TAB PO SCH (21:18)
[2017-04-17 23:00] VITALS: BP 132/78; PULSE 74; TEMP 36.9; O2SAT 97
[2017-04-18 03:00] VITALS: BP 127/75; PULSE 77; TEMP 36.5; O2SAT 95
[2017-04-18 06:59] VITALS: BP 127/72; PULSE 76; TEMP 36.7; O2SAT 96
[2017-04-18 07:18] LABS: PARTIAL THROMBOPLASTIN RATIO 0.9
[2017-04-18] MEDS: TOLTERODINE TARTRATE 2 MG TAB PO SCH ×2 (07:43→19:57)
[2017-04-18] MEDS: ASPIRIN 81 MG ECTAB PO SCH (07:43)
[2017-04-18] MEDS: METOPROLOL TARTRATE 25 MG TAB PO SCH ×2 (07:43→19:56)
[2017-04-18] MEDS: DOCUSATE SODIUM 100 MG CAP PO SCH ×2 (07:43→19:54)
[2017-04-18] MEDS: RISPERIDONE 0.5 MG TAB PO SCH ×3 (07:43→19:55)
[2017-04-18] MEDS ORDERED: BUPIVACAINE 0.5 % 5 MG/1 ML MPF 30ML VIAL INFIL ONE (09:15)
[2017-04-18] MEDS ORDERED: TRIAMCINOLONE ACET 40 MG/ML VIAL IA ONE (09:15)
[2017-04-18 09:34] LABS: BUN/CREATININE RATIO 35.4 (10-20); CALCIUM 8.7 mg/dl (8.5-10.1); CREATININE 0.98 mg/dl (0.60-1.20); POTASSIUM 4.2 mmol/L (3.5-5.1)
--- NOTE | 2017-04-18 09:57 | ECHOCARDIOGRAM REPORT ---
*NOTICE TO RECEIVING DEMOCRAT AGENCY This information is strictly Confidential and protected under [place] law. [place] law prohibits you from making any further disclosure of this information unless further disclosure is expressly permitted by the written consent of the person to whom it pertains or is authorized by law. A general authorization for the release of medical or other information is not sufficient for this purpose. Hospital accepts no responsibility if the information is made available to any other person, INCLUDING THE PATIENT. Interpretation Summary * Name: RADHA FARRELL Study Date: 04/18/2017 07:03 AM BP: 127/75 mmHg * Patient Location: C.2T\S\S240\S\1 HR: 77 * : 1935 (M/d/yyy) Gender: Female Height: 65 in * Age: 81 yrs Ethnicity: [place] Weight: 162 lb * Ordering Physician: Yee Alonso * Referring Physician: [facility] * Performed By: Rosita Millan RDCS * * Reason For Study: SYNCOPE * BSA: 1.8 m2 * -- Conclusions -- * Compared with 05/14/16 study, no focal wall motion abnormlities seen on current study and pulmonary hypertension now apparent, otherwise no significant change. * The left ventricle is normal in size. * Ejection Fraction = 55-60%. * Left ventricular systolic function is low normal. * Septal motion is consistent with conduction abnormality. * Flattened septum is consistent with RV volume overload. * No regional wall motion abnormalities noted. * There is moderate concentric left ventricular hypertrophy. * Grade I diastolic dysfunction, (abnormal relaxation pattern). * The right ventricle is mild to moderately dilated. * The right ventricular systolic function is mild to moderately reduced. * Bioprosthetic leaflets are thin and move normally. * The gradient is normal for this prosthetic aortic valve. * There is no significant aortic regurgitation. * There is moderate to severe mitral annular calcification. * There is mild tricuspid regurgitation. * Right ventricular systolic pressure is elevated at 40-50mmHg. Procedure Details * A complete two-dimensional transthoracic echocardiogram was performed (2D, M-mode, Doppler and color flow Doppler). * The study was technically difficult. * There were technical limitations due to patient'sinability to cooperate * A contrast injection of Definity was performed to improve assessment of LV function. * Contrast was injected into an intravenous site in the left arm. * One vial of Definity ultrasound contrast was diluted in normal saline to a total volume of 10 ml. A total of '3' ml of solution was administered during imaging. * Lot # [id number] of Definity utilized for procedure. * Expiration date 05/03. * The attending nurse who injected the contrast agent was LAMONTE BERNARD RN. Left Ventricle * The left ventricle is normal in size. * There is moderate concentric left ventricular hypertrophy. * Ejection Fraction = 55-60%. * Left ventricular systolic function is low normal. * Septal motion is consistent with conduction abnormality. * Flattened septum is consistent with RV volume overload. * No regional wall motion abnormalities noted. Right Ventricle * The right ventricle is mild to moderately dilated. * The right ventricular systolic function is mild to moderately reduced. Atria * The left atrial size is normal. * The right atrium is mildly dilated. * The interatrial septum is intact with no evidence for an atrial septal defect. Mitral Valve * There is moderate to severe mitral annular calcification. * The mitral valve is grossly normal. * No significant mitral valve stenosis. * Significant mitral regurgitation is absent. Tricuspid Valve * The tricuspid valve is normal in structure and function. * Right ventricular systolic pressure is elevated at 40-50mmHg. * There is mild tricuspid regurgitation. Aortic Valve * There is no significant aortic regurgitation. * Bioprosthetic leaflets are thin and move normally. * The gradient is normal for this prosthetic aortic valve. Pulmonic Valve * The pulmonic valve is not well seen, but is grossly normal. * Mild to moderate pulmonic valvular regurgitation. * PA end diastolic velocity of 1.3 m/s is consistent with mildly elevated PA end diastolic pressure. Great Vessels * The aortic root is normal size. * Aortic arch of normal dimension. * No obvious dissection could be visualized. * The pulmonary artery is normal size. Pericardium/Pleural * There is no pericardial effusion. Great Vessels * The inferior vena cava is mildly dilated. Left Ventricular Diastolic Function * Grade I diastolic dysfunction, (abnormal relaxation pattern). MMode 2D Measurements and Calculations IVSd 1.6 cm IVSs 2.2 cm LVIDd 4.1 cm LVIDs 2.8 cm LVPWd 1.3 cm LVPWs 1.9 cm IVS/LVPW 1.2 FS 32.7 % EDV(Teich) 75.1 ml ESV(Teich) 28.8 ml EF(Teich) 61.6 % EDV(cubed) 70.0 ml ESV(cubed) 21.3 ml EF(cubed) 69.5 % % IVS thick 34.4 % % LVPW thick 41.3 % LV mass(C)d 239.1 grams LV mass(C)dI 132.2 grams/m\S\2 LV mass(C)s 251.2 grams LV mass(C)sI 138.9 grams/m\S\2 SV(Teich) 46.3 ml SI(Teich) 25.6 ml/m\S\2 SV(cubed) 48.6 ml SI(cubed) 26.9 ml/m\S\2 ACS 1.4 cm LA dimension 3.9 cm asc Aorta Diam 3.0 cm LVOT diam 1.7 cm LVOT area 2.3 cm\S\2 LVAd ap4 34.7 cm\S\2 LVLd ap4 8.6 cm EDV(MOD-sp4) 113.0 ml EDV(sp4-el) 119.0 ml LVAs ap4 19.6 cm\S\2 LVLs ap4 6.5 cm ESV(MOD-sp4) 47.6 ml ESV(sp4-el) 49.8 ml EF(MOD-sp4) 57.8 % EF(sp4-el) 58.1 % LVAd ap2 28.4 cm\S\2 LVLd ap2 7.2 cm EDV(MOD-sp2) 92.9 ml EDV(sp2-el) 95.3 ml LVAs ap2 15.9 cm\S\2 LVLs ap2 6.2 cm ESV(MOD-sp2) 37.4 ml ESV(sp2-el) 34.6 ml EF(MOD-sp2) 59.7 % EF(sp2-el) 63.7 % LVLd %diff -19.31 % EDV(MOD-bp) 110.8 ml LVLs %diff -5.30 % ESV(MOD-bp) 41.8 ml EF(MOD-bp) 62.3 % SV(MOD-sp4) 65.4 ml SI(MOD-sp4) 36.1 ml/m\S\2 SV(MOD-sp2) 55.4 ml SI(MOD-sp2) 30.7 ml/m\S\2 SV(MOD-bp) 69.1 ml SI(MOD-bp) 38.2 ml/m\S\2 SV(sp4-el) 69.2 ml SI(sp4-el) 38.3 ml/m\S\2 SV(sp2-el) 60.7 ml SI(sp2-el) 33.6 ml/m\S\2 Doppler Measurements and Calculations MV E max lion 85.8 cm/sec MV A max lion 109.1 cm/sec MV E/A 0.79 MV dec time 0.29 sec Ao V2 max 212.2 cm/sec Ao max PG 18.0 mmHg Ao max PG (full) 15.4 mmHg Ao V2 mean 150.4 cm/sec Ao mean PG 10.4 mmHg Ao V2 VTI 39.7 cm TAO(V,A) 0.86 cm\S\2 TAO(V,D) 0.86 cm\S\2 LV V1 max PG 2.6 mmHg LV V1 max 80.7 cm/sec PA V2 max 66.0 cm/sec PA max PG 1.7 mmHg PI end-d lion 133.7 cm/sec TR max lion 331.3 cm/sec
--- NOTE | 2017-04-18 09:58 | ORTHOPEDIC CONSULTATION ---
DATE OF CONSULTATION: 04/18/2017 CHIEF COMPLAINT: Right knee pain. HISTORY OF PRESENT ILLNESS: Mikaela is an 81-year-old female with dementia and frequent falls. She was recently hospitalized for right hip pain a couple weeks ago without any evidence of fracture. She was discharged to [facility] on April 13. She was sitting in her chair and doing a rehabilitation activity when she lost consciousness and fell forward. She was hyperventilating when EMS arrived. She is complaining mostly of right leg pain and right knee pain. She was admitted to the hospitalist service and orthopedics. A CT scan of her hip showed a questionable nondisplaced greater trochanteric hip fracture and x-rays of her knee show severe osteoarthritis of the right knee. Orthopedics was consulted to evaluate and treat. PAST MEDICAL HISTORY: Significant for history of CVA, aortic stenosis, DVTs, type 2 diabetes, hypertension, frequent falls, and vascular dementia. PAST SURGICAL HISTORY: Significant for hysterectomy and AVR. FAMILY HISTORY: Diabetes, heart disease, and hypertension. MEDICATIONS: Include aspirin 81 mg daily, Lipitor 10 mg daily, vitamin D 1 tab daily, CoQ10 one tab daily, diclofenac gel 4 times a day as needed, Colace twice a day, magnesium oxide 400 mg daily, Lopressor 12.5 mg twice a day, risperidone 0.5 mg 3 times a day and tolterodine 2 mg twice a day. ALLERGIES: INCLUDE ENALAPRIL and ESCITALOPRAM. PHYSICAL EXAMINATION: NEUROLOGICAL: She is demented and unable to follow commands. It is difficult to tell exactly where she is hurting, which she mostly points to her right knee. I did a couple things to try to see how alert she was that it was her right knee pain and she continued to point back to her right knee. I did do a logroll of her right hip, she did not seem to have much hip pain, she had mild tenderness to palpation over the greater trochanter, but that was equal to contralateral side. She does have a slight bruise on the anterior aspect of her right knee, there is no effusion. She is sitting with her knee flexed about 15 degrees and I can do gentle range of motion from 0-30 degrees at bedside and she seems to grimace with range of motion of her right knee. She has a lot of tenderness to deep palpation over the distal medial and lateral femoral condyles. IMAGING DATA: X-rays reviewed of the right knee do show advanced tricompartmental arthritis. There is joint space narrowing and osteophyte formation. CT scan reviewed of the hip showed a questionable nondisplaced very small greater trochanteric hip fracture. IMPRESSION: 1. Primary osteoarthritis of the right knee. 2. Questionable nondisplaced trochanteric hip fracture. PLAN: Most of her pain at this point seems to be coming from her knee. I would like to give her a cortisone injection later today into her knees to see if we can get to calm down a little bit. I do not see enough evidence on the CT scan, I think that she has an acute hip fracture. However, if she did, the treatment would be the same, she would still be weightbearing as tolerated. Given her level of dementia, I would not be surprised if her hip seems to start hurting her in the future, but on my exam on her at bedside, most of her pain seemed to be in her knee. She is orthopedically stable for discharge when medically ready. I will try to get the cortisone injection later today.
[2017-04-18 11:48] VITALS: BP 126/70; PULSE 96; TEMP 36.6; O2SAT 96
--- NOTE | 2017-04-18 12:44 | Cardiology Consultation ---
Cardiology Consultation Date of Service Apr 18, 2017. 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 ER notes that she was normotensive with a heart rate in the 70s, but apparently had poor respiration and required assistance with bag mask. Workup showed no acute CVA or metabolic derangement, ECG with chronic left bundle branch block and mild troponin elevation noted. At the time of my evaluation, the patient was awake but mildly confused, she denied any somatic complaints. MEDICATIONS: Aspirin 81 mg daily Atorvastatin Docusate Mag oxide Lopressor 12.5 mg b.i.d. Risperdal Detrol PRN meds. ALLERGIES: Enalapril and escitalopram, unspecified reactions. PAST MEDICAL HISTORY: Anxiety Atypical chest pain, hospitalization/ER visits earlier this year with negative workup. Carcinosarcoma the uterus Uterine venous thrombosis CAD, status post single-vessel CABG (THOMPSON to LAD) 2014 Chronic diastolic congestive heart failure Recurrenct GI bleed Hyperglycemia Hyperlipidemia Hypertension Iron deficiency anemia Vascular dementia Recurrent UTIs Stroke syndrome PAST SURGICAL HISTORY: CABG/bioprosthetic AVR 2015 Cataracts Tubal ligation Central venous line SOCIAL HISTORY: Apparently still lives with her family. Never smoked. No drugs. FAMILY HISTORY: CAD/WA/rheumatoid arthritis REVIEW OF SYSTEMS:Per HPI. Unobtainable from patient currently due to confusion /dementia. PHYSICAL EXAMINATION: No distress. Vitals: Afebrile. BP 116/79, pulse 95 and regular, respirations 16 nonlabored. Skin: No unusual lesions or ecchymosis. HEENT: Unremarkable. Neck: Jugular venous pulse just above the clavicle at 90, faint transmitted carotid murmur versus bruits. Lungs: Poor inspiratory effort but clear breath sounds bilaterally. No wheezing or crackles. Cardiac: Regular rhythm with normal S1 and intact aortic closure sound, 2/6 right upper sternal border systolic murmur radiating to the carotids, no diastolic murmur or gallop. Abdomen: Benign. Extremities: Nontender without edema. Intact peripheral pulses. Neurologic: Awake but confused, know she is in the hospital, thinks the year is 2016, unable to name the president. Grossly nonfocal DATA: magnet valve assembler overnight showed only sinus rhythm with no pauses or dysrhythmias. ECG on admission showed sinus rhythm with left bundle type nonspecific interventricular conduction delay. Compared with prior ECG, no significant change. Echocardiogram showed normal systolic function with abnormal septal motion related to interventricular conduction delay, there was also evidence of right heart volume overloaded moderate pulmonary hypertension. Bioprosthetic aortic valve was functioning appropriately. Chest x-ray showed no acute process. Troponin initially 0.0 5 9 increasing to 0.6 before dropping to 0.3. Labs today with normal electrolytes, BUN 35, creatinine 0.98. Hemoglobin 10.4 with normal white count and platelet count of 107,000. IMPRESSION: 1. Unresponsive episode, unrevealing evaluation thus far. 2. CAD, status post CABG with minor troponin elevation, likely supply/demand phenomenon. 3. Vascular dementia, with recurrent falls. 4. Bioprosthetic aortic valve, functioning appropriately. 5. Multiple other medical problems as noted. DISCUSSION: Details surrounding her unresponsive episode were not readily available (EMS report not on electronic chart). However, she apparently did require respiratory support, suggesting a significant physiologic demand which in the context of known coronary artery disease would certainly account for a minor troponin elevation. Her ECG is nonspecific but shows no signs of evolution and she denies any chest pain. Given that she had prior revascularization just 2 years ago (THOMPSON to LAD for single-vessel disease) and that she would be a poor candidate for any additional anti-platelet therapy beyond aspirin (given her recurrent falls and recurrent GI bleeds), aggressive management of any additional coronary disease would most likely be conservative in the absence of compelling ongoing symptoms (such as angina on at low levels of exertion). Her hemodynamics are appropriate on her current low level beta-jovanny regimen and she is already on aspirin. No role for heparin in the absence of evidence for progressive/acute coronary syndrome. Would increase activity as able and monitor for any cardiac symptoms such as angina or dyspnea. In the absence of further symptoms, given the constraints noted, would not recommend stress testing at this time. She has been monitored for several days now with no evidence of heart block or dysrhythmia to suggest electrical reason for her unresponsive episode. Echocardiogram shows appropriately functioning bioprosthetic aortic valve with normal systolic function. Patient denied symptoms at the time of my evaluation and was hemodynamically stable, will discuss her case with Dr. Angel Andersen (her primary generation mechanic helper) in regards to whether any further cardiac workup (inpatient or outpatient) will be pursued. Thank you for this consultation. Please call if you have any questions (cell # [phone]).
[2017-04-18] MEDS: ACETAMINOPHEN 325 MG TAB PO PRN ×2 (12:55→19:50)
--- NOTE | 2017-04-18 14:33 | OPERATIVE REPORT ---
DATE OF OPERATION: 04/18/2017 PREPROCEDURE DIAGNOSIS: Primary osteoarthritis of the right knee. PROCEDURE: Cortisone injection of the right knee. SURGEON: Dr. Ruddy Cisneros. DESCRIPTION OF PROCEDURE: The injection site was prepped at the superior lateral aspect of the knee with alcohol wipes. The knee was then injected with 5 mL of 0.5% Marcaine and 40 mg of Kenalog. A Band-Aid was placed. She tolerated the procedure well. I attest to the content of the Intraoperative Record and any orders documented therein. Any exception s are noted below.
[2017-04-18 15:52] VITALS: BP 108/63; PULSE 79; TEMP 37; O2SAT 97
--- NOTE | 2017-04-18 18:36 | Progress Note ---
Subjective Date of Service: Apr 18, 2017. Subjective Pt evaluation today including: conversation w/ patient, conversation w/ family , physical exam, chart review, lab review, review of inpatient medication list Problem List Medical Problems: (1) Abnormal EKG Status: Acute (2) Agitation Status: Acute (3) Alteration consciousness Status: Acute (4) Altered mental status Status: Acute (5) Atypical chest pain Status: Acute (6) Confused Status: Acute (7) Confusion Status: Acute (8) Dark stools Status: Acute (9) Elevated troponin Status: Acute (10) Fall Status: Acute (11) Head injury Status: Acute (12) Lumbar compression fracture Status: Acute (13) Precordial chest pain Status: Acute (14) Rectal bleeding Status: Acute (15) Respiratory distress Status: Acute (16) Toenail avulsion Status: Acute (17) Urinary tract infection Status: Acute (18) UTI (urinary tract infection) Status: Acute (19) UTI (urinary tract infection) Status: Acute Review of Systems Due to patient mental status review of system was unobtainable/unreliable We'll attempt to obtain review of system as needed from staff and family Medications Current Inpatient Medications Medications (Trade) Dose Ordered Sig/Shaggy Route Start Time Stop Time Status Last Admin Dose Admin Aspirin (Ecotrin Tab) 81 mg QAM PO 04/17/17 09:00 05/17/17 08:59 04/18/17 07:43 81 MG Atorvastatin Calcium (Lipitor Tab) 10 mg QPM PO 04/16/17 21:00 05/16/17 20:59 04/17/17 21:18 10 MG Docusate Sodium (coLACE CAP) 100 mg BID PO 04/16/17 21:00 05/16/17 20:59 04/18/17 07:43 100 MG Magnesium Oxide (Mag-Ox Tab) 400 mg QPM PO 04/16/17 21:00 05/16/17 20:59 04/17/17 21:17 400 MG Metoprolol Tartrate (Lopressor Tab) 12.5 mg BID PO 04/16/17 21:00 05/16/17 20:59 04/18/17 07:43 12.5 MG Risperidone (Risperdal Tab) 0.5 mg TID PO 04/16/17 21:00 05/16/17 20:59 04/18/17 15:02 0.5 MG Tolterodine Tartrate (Detrol Tab) 2 mg BID PO 04/16/17 21:00 05/16/17 20:59 04/18/17 07:43 2 MG Acetaminophen (Tylenol Tab) 650 mg Q4H PRN PO 04/16/17 17:00 05/16/17 16:59 04/18/17 12:55 650 MG Al Hydrox/Mg Hydrox/Simethicone (Maalox Max Susp) 15 ml Q4H PRN PO 04/16/17 17:00 05/16/17 16:59 Magnesium Hydroxide (Milk Of Magnesia Susp) 30 ml Q12H PRN PO 04/16/17 17:00 05/16/17 16:59 Ondansetron HCl (Zofran Inj) 4 mg Q6H PRN IV 04/16/17 17:00 05/16/17 16:59 Morphine Sulfate (MoRPHine SULFATE INJ) 2 mg Q30M PRN IV 04/16/17 17:00 04/30/17 16:59 Polyethylene (Miralax Powder Packet) 17 gm DAILY PRN PO 04/16/17 17:00 05/16/17 16:59 Lorazepam (Ativan Inj) 0.25 mg Q8H PRN IV 04/16/17 17:45 05/16/17 17:44 Lorazepam 0.25 mg/ Syringe 0.25 ml @ 1 mls/min Q4H PRN IV 04/16/17 19:00 05/16/17 18:59 Miscellaneous (Iv Fluids Completed) 1 ea PRN PRN N/A 04/16/17 20:00 04/16/18 19:59 Heparin Sodium/ Dextrose 500 ml @ 19 mls/hr Q24H PRN IV 04/17/17 01:15 05/17/17 01:14 Future Hold 04/17/17 01:23 16 MLS/HR Objective Vital Signs Date Time Temp Pulse Resp B/P (MAP) Pulse Ox O2 Delivery O2 Flow Rate FiO2 04/18/17 15:52 37.0 79 21 108/63 (78) 97 Nasal Cannula 1.0 04/18/17 12:00 Room Air 04/18/17 11:48 36.6 96 18 126/70 (88) 96 04/18/17 08:00 Room Air 04/18/17 06:59 36.7 76 18 127/72 (90) 96 2.0 04/18/17 04:00 Nasal Cannula 2.0 04/18/17 03:00 36.5 77 16 127/75 (92) 95 Nasal Cannula 1.0 04/17/17 23:00 36.9 74 18 132/78 (96) 97 Nasal Cannula 1.0 04/17/17 23:00 Nasal Cannula 2.0 04/17/17 21:15 Nasal Cannula 2.0 04/17/17 18:56 36.7 86 22 127/72 (90) 96 Nasal Cannula 2.0 Physical Exam General Appearance: WD/WN, no apparent distress Eyes: normal inspection, EOMI ENT: normal ENT inspection, hearing grossly normal Neck: supple Respiratory/Chest: chest non-tender, lungs clear, normal breath sounds, no respiratory distress, no accessory muscle use Cardiovascular: regular rate, rhythm, no edema, no gallop, no JVD, no murmur Abdomen: normal bowel sounds, non tender, soft, no organomegaly, no pulsatile mass Extremities: normal range of motion, non-tender, normal inspection, no pedal edema, no calf tenderness Neurologic/Psychiatric: safety specialist II-XII nml as tested, no motor/sensory deficits, alert, normal mood/affect, oriented x 3 Skin: normal color, warm/dry, no rash Laboratory Results Last 24 Hours Test 04/17/17 18:20 04/17/17 20:01 04/18/17 06:42 04/18/17 06:45 Urine Color YELLOW Urine Appearance CLEAR Urine pH 5.0 Urine Specific [place] 1.024 Urine Protein NEG Urine Glucose (UA) NEG Urine Ketones NEG Urine Occult Blood NEG Urine Nitrite NEG Urine Bilirubin NEG Urine Urobilinogen NEG Urine Leukocyte Esterase SMALL Urine WBC (Auto) 5-10 /hpf Urine RBC (Auto) 0-4 /hpf Urine Hyaline Casts (Auto) 1-5 /lpf Urine Epithelial Cells (Auto) >30 /lpf Urine Bacteria (Auto) 3+ Bedside Glucose 211 mg/dl 129 mg/dl Activated Partial Thromboplast Time 23.8 SECONDS Partial Thromboplastin Ratio 0.9 Sodium Level 139 mmol/L Potassium Level 4.2 mmol/L Chloride Level 105 mmol/L Carbon Dioxide Level 27 mmol/L Anion Gap 7.0 mmol/L Blood Urea Nitrogen 35 mg/dl Creatinine 0.98 mg/dl Est Creatinine Clear Calc Drug Dose 46.1 ml/min Estimated GFR () 63.1 Estimated GFR (Non- 54.5 BUN/Creatinine Ratio 35.4 Random Glucose 113 mg/dl Calcium Level 8.7 mg/dl Test 04/18/17 11:29 04/18/17 16:30 Bedside Glucose 163 mg/dl 155 mg/dl Assessment and Plan 81 years old lady with dementia, HTN, Hx of CVA, DMII and frequent falls. presented to the ED with syncope on field she was hypoventilating when she was unresponsive, requiring bag mask by paramedics. no evidence of losing pulse or BP Assessment: LOC / hypoventilation Positive troponin uti poa Acute isolated fracture of the left greater trochanter with minimal impaction / no displacement Hx of Bioprosthetic Aortic valve Hx of Grade I diastolic dysfunction Hip pain B/L knee pain multiple lumbar old compression fractures HTN DMII Hx of CVA Dementia Plan: continue telemtery ucx grew strept , start Ceftriaxone 04/18 Orthopedic consult appreciated, S/P right knee cortisone injection will start PT/OT , weightbearing as tolerated cardiac echo showed functional bioprosthetic aortic valve with normal EF consult Dr. Rausch appreciated, no invasive intervention is required at this point supportive care PT/OT as per son, would like us to decrease Resperal as in the past it caused confusion, I initially cancelled psych consult but he asked me later to re request the consult as he needs a second opinion , attributing her anxiety and muscle pain/spasm to psych meds will decrease resperal and consult psych again her psychiatrist is Dr. Barrett ; [phone] , son asked us to communicate with him on Wednesday Urinalysis with reflex culture and sensitivity Full code - Heparin prophylaxis
[2017-04-18 19:25] VITALS: BP 147/81; PULSE 75; TEMP 36.7; O2SAT 95
[2017-04-18] MEDS: CEFTRIAXONE SOD INJ 1 GM in DEXTROSE 5% ADD-VANTAGE 50ML 50 ML IV SCH (19:50)
[2017-04-18] MEDS: ATORVASTATIN 10 MG TAB PO SCH (19:54)
[2017-04-18] MEDS: MAGNESIUM OXIDE 400 MG TAB PO SCH (19:55)
[2017-04-18] MEDS ORDERED: ERGOCALCIFEROL 50,000 INTER.UNIT CAP PO SCH (22:00)
[2017-04-18 23:12] VITALS: BP 164/88; PULSE 71; TEMP 36.6; O2SAT 96
[2017-04-19] VITALS (10 sets, daily range): BP systolic 130–161; BP diastolic 65–75; PULSE 55–87; TEMP 36.2–37.3; O2SAT 92–97
[2017-04-19 07:36] LABS: BASO % 0.1 %; BASO ABS # 0.01 K/uL (0-0.2); COMPLETE YES; EOS % 0.1 %; HEMATOCRIT 32.2 % (37-47); IG% 0.5 %; LYMPH % 13.7 %; LYMPH ABS # 1.14 K/uL (1.2-3.4); MEAN CELL VOLUME 89.2 fL (80-100); MEAN CORPUSCULAR HEMOGLOBIN 29.4 pg (25-34); MEAN CORPUSCULAR HGB CONC 32.9 g/dl (32-36); MONO % 8.9 %; NEUT % 76.7 %; PLATELET COUNT 146 K/uL (130-400); RED BLOOD COUNT 3.61 M/uL (4.2-5.4); WHITE BLOOD COUNT 8.35 K/uL (4.8-10.8)
[2017-04-19] MEDS: LACTOBACILLUS ACIDOPHILUS (FLORANEX) TAB PO SCH ×3 (07:46→16:45)
[2017-04-19] MEDS: ASPIRIN 81 MG ECTAB PO SCH (07:46)
[2017-04-19] MEDS: DOCUSATE SODIUM 100 MG CAP PO SCH ×2 (07:46→20:22)
[2017-04-19] MEDS: RISPERIDONE 0.5 MG TAB PO SCH ×2 (07:47→20:22)
[2017-04-19] MEDS: METOPROLOL TARTRATE 25 MG TAB PO SCH ×2 (07:48→20:22)
[2017-04-19] MEDS: TOLTERODINE TARTRATE 2 MG TAB PO SCH ×2 (07:48→20:22)
[2017-04-19] MEDS: ACETAMINOPHEN 325 MG TAB PO PRN (07:52)
[2017-04-19 08:03] LABS: BUN/CREATININE RATIO 36.6 (10-20); CALCIUM 8.8 mg/dl (8.5-10.1); CREATININE 0.91 mg/dl (0.60-1.20); POTASSIUM 4.3 mmol/L (3.5-5.1)
--- NOTE | 2017-04-19 09:56 | Clinical Documentation Query ---
CLINICAL DOCUMENTATION QUERY QUERY 1 OF 3 An 81 year old white female with a past medical history of anxiety, HLV, CAD, CVA, DM, HTN, aortic stenosis and dementia who presents to the ED with a cc of unresponsiveness beginning prior to arrival. In your clinical opinion is this patient being managed for: ( ) Type 2 [place] due to demand ischemia ( ) Not Agree ( ) Other explanation of clinical findings (Please Explain) ( ) Unable to determine (Please Define) ( ) Need to Discuss The medical record reflects the following clinical findings, treatment, and risk factors. Clinical Indicators: Elevated troponin peak to 0.633, respiratory failure, hypoxia Treatment: Telemetry, serial troponins, O2, heparin IV Risk Factors: Age, CAD, HTN, CVA, elevated troponins, hypoxia QUERY 2 OF 3 In your clinical opinion is this patient being managed for: ( ) Acute respiratory failure ( ) Not Agree ( ) Other explanation of clinical findings (Please Explain) ( ) Unable to determine (Please Define) ( ) Need to Discuss The medical record reflects the following clinical findings, treatment, and risk factors. Clinical Indicators: Unresponsiveness, shallow respirations requiring BVM, chest pain Treatment: BVM, telemetry, O2 Risk Factors: Age, HTN, CAD, elevated troponins QUERY 3 OF 3 In your clinical opinion is this patient being managed for: ( ) Chronic diastolic CHF ( ) Not Agree ( ) Other explanation of clinical findings (Please Explain) ( ) Unable to determine (Please Define) ( ) Need to Discuss The medical record reflects the following clinical findings, treatment, and risk factors. Clinical Indicators: Echo displays grade I diastolic dysfunction, EF = 55-60% Treatment: Telemetry, echo Risk Factors: Age, HTN, CAD, DM Please clarify and document your clinical opinion in the progress notes and discharge summary. Terms such as "probable", "suspected", "likely", "questionable", "possible", or "still to be ruled out" are acceptable. IF IN AGREEMENT, YOU MUST DOCUMENT ABOVE DIAGNOSTIC STATEMENT IN DAILY PROGRESS NOTES AND DISCHARGE SUMMARY. This document is not part of the patient's record. Thank You, Sarah Rausch RN [phone]
--- NOTE | 2017-04-19 12:25 | Psychiatric Consultation ---
Consultation Date of Consultation Apr 19, 2017. Identifying Data 81-year-old woman with multiple medical problems, just discharged from our hospital to [facility] in April 13, readmitted medically after an episode of loss of consciousness [facility] We are consulted to evaluate her psych medicines given her altered mental status. Information is gathered from her daughter Rosa M, the electronic medical record, the patient and her son Dixon. Chief Complaint "Oh I don't know". History of Present Illness The patient is an 81-year-old woman with multiple conditions including history of a CVA, diabetes, hypertension and dementia as listed in the medical chart, who was in our hospital until April 13 after experiencing a fall at home. She was sent to [facility] due to ongoing complaints of hip pain and while there experienced an episode in which she appeared to lose consciousness, with hypoventilation, requiring ventilatory assistance. She was brought back to the hospital by ambulance. Cardiac workup is so far unremarkable. Her family is requesting a second opinion on medications. The patient sees Dr. Melton at [facility] who currently prescribes Risperdal 0.5 mg 3 times a day plus one dose when necessary, to target her sleep. She had recently been on Remeron, Celexa and Seroquel, all of which were discontinued on February 19 which was her last visit at his office. The patient continues to live with her daughters Rosa M and Summer. Lucille is at bedside today and confirms that she is chronically anxious, on a daily basis. She sees her mother as depressed, usually worse with the holidays, but mother has not recently made any suicidal statements. When at home, the patient's sleep is generally good because they try to keep her busy during the day. She is chronically disoriented to day date and time parameters but is usually oriented to self. She continues to be able to recognize her family, and to assist in her own care Rosa M notes that there was one clear episode of visual hallucinations with patient saying that she thought she saw her sister Elsie, who is currently . At the time I see the patient, she is positioned on her right side for comfort. She is cooperative with the interview although a poor historian. She has no memory of her past medication trials but gives me verbal permission to call her outpatient provider to confirm her meds. She admits that she is anxious, frequently saying "oh no". She is oriented to person and place, although believes the admitting problem was the fall that brought her in during her previous hospitalization. She cannot answer questions about the year, she thinks that it October. Past Psychiatric History Current OP Treatment: psychiatrist (Dr. Melton) Prior Psych Hospitalizations: none Access to a Gun: No Past Medication Trials Celexa, Remeron, Seroquel Past Medical/Surgical History (1) Weakness (2) CHF (congestive heart failure) (3) Elevated troponin (4) Diabetes (5) Aortic stenosis Allergies Allergies: Coded Allergies: Enalapril (Verified Allergy, Unknown, Unknown, 04/16/17) Escitalopram (Verified Adverse Reaction, Unknown, Hallucinations, 04/16/17) Home Medications Scheduled Aspirin (Aspirin Ec), 81 MG PO QAM Atorvastatin (Lipitor), 10 MG PO QPM Cholecalciferol (Vitamin D), 1 TAB PO QAM Coenzyme Q10 (Ubidecarenone) (Co Q10), 1 CAP PO DAILY Diclofenac Sodium (Topical) (Voltaren 1% Top Gel), 1 APPLN TOP QID Docusate Sodium (Colace), 1 CAP PO BID Magnesium Oxide (Mag-Ox), 400 MG PO QPM Metoprolol Tartrate (Lopressor) (Lopressor), 12.5 MG PO BID Polyethylene Glycol 3350 (Miralax), 17 GM PO HS Risperidone (Risperidone), 0.5 MG PO TID Tolterodine Tartrate (Tolterodine Tartrate), 2 MG PO BID Scheduled PRN Acetaminophen (Tylenol), 650 MG PO Q4 PRN for Pain Magnesium Hydroxide (Milk Of Magnesia), 30 ML PO for Constipation Family History Diabetes mellitus FH: heart disease Hypertension History of Suicide: No History of Substance Abuse: No Psychiatric History: Yes (both daughters with depression) Alcohol Use Alcohol Use In Past 12 Months: No Smoking Use Smoking Status: Never Smoker Personal History Lives in: with HER-2 daughters Education: started high school (attended school through the eighth grade) Children: 5 (lives with her 2 daughters, son is POA) 2 other siblings live in other s Legal History: none Review of Systems Constitutional: other (anxiety) Eyes: denies: no symptoms, as stated in HPI, eye pain, tearing, itching, redness, discharge, double vision, visual changes, blurred vision, photophobia, other ENT: denies: no symptoms reported, see HPI, ear pain, ear discharge, loss of hearing, tinnitus, nasal pain, nasal congestion, rhinorrhea, epistaxis, sore throat, stidor, throat swelling, mouth pain, mouth swelling, dental pain, gum swelling, other Cardiovascular: denies: no symptoms reported, see HPI, chest pain, chest tightness, chest pressure, diaphoresis, palpitations, syncope, other Respiratory: denies: no symptoms reported, see HPI, cough, orthopnea, short of breath, stridor, wheezing, sputum production, cyanosis, OCONNOR, PND, other Gastrointestinal: denies no symptoms reported, denies see HPI, denies abdominal pain, denies constipation, denies diarrhea, denies nausea, denies vomiting, denies other Genitourinary - Female: denies: no symptoms, see HPI, rash, amenorrhea, dysmenorrhea, menorrhagia, metrorrhagia, , vaginal bleeding, vaginal itching, vaginal discharge, vulvadynia, other Musculoskeletal: other (hip pain) Integumentary: denies no symptoms reported, denies see HPI, denies change in color, denies change in hair/nails, denies dryness, denies lesions, denies lumps , denies rash, denies other Neurologic: reports: other Endocrine: denies: no symptoms, as stated in HPI, cold intolerance, heat intolerance, hair changes, goiter, polydipsia, polyuria, skin changes, other Hematologic / Lymphatic: denies: no symptoms, as stated in HPI, abnormal clotting, adenopathy, anemia, easy bleeding, easy bruising, gums bleeding, petechiae, other Examination Physical Examination As per Dr. Clara Staples Vital Signs Vital Signs Past 12 Hours Date Time Temp Pulse Resp B/P (MAP) Pulse Ox O2 Delivery O2 Flow Rate FiO2 04/19/17 11:02 37.0 65 18 138/75 (96) 95 Room Air 04/19/17 08:00 97 Room Air 04/19/17 07:27 36.9 62 18 148/65 (92) 97 Room Air 04/19/17 04:33 36.2 55 16 136/69 (91) 97 Room Air 04/19/17 04:33 Room Air Laboratory Results Last 24 Hours Test 04/18/17 16:30 04/18/17 20:08 04/19/17 06:23 04/19/17 07:06 Bedside Glucose 155 mg/dl 203 mg/dl 164 mg/dl White Blood Count 8.35 K/uL Red Blood Count 3.61 M/uL Hemoglobin 10.6 g/dL Hematocrit 32.2 % Mean Corpuscular Volume 89.2 fL Mean Corpuscular Hemoglobin 29.4 pg Mean Corpuscular Hemoglobin Concent 32.9 g/dl Platelet Count 146 K/uL Mean Platelet Volume 10.0 fL Neutrophils (%) (Auto) 76.7 % Lymphocytes (%) (Auto) 13.7 % Monocytes (%) (Auto) 8.9 % Eosinophils (%) (Auto) 0.1 % Basophils (%) (Auto) 0.1 % Neutrophils # (Auto) 6.41 K/uL Lymphocytes # (Auto) 1.14 K/uL Monocytes # (Auto) 0.74 K/uL Eosinophils # (Auto) 0.01 K/uL Basophils # (Auto) 0.01 K/uL RDW Standard Deviation 41.5 fL RDW Coefficient of Variation 12.8 % Immature Granulocyte % (Auto) 0.5 % Immature Granulocyte # (Auto) 0.04 K/uL Activated Partial Thromboplast Time 24.7 SECONDS Partial Thromboplastin Ratio 1.0 Sodium Level 139 mmol/L Potassium Level 4.3 mmol/L Chloride Level 104 mmol/L Carbon Dioxide Level 28 mmol/L Anion Gap 7.0 mmol/L Blood Urea Nitrogen 33 mg/dl Creatinine 0.91 mg/dl Est Creatinine Clear Calc Drug Dose 50.3 ml/min Estimated GFR () 69.1 Estimated GFR (Non- 59.6 BUN/Creatinine Ratio 36.6 Random Glucose 139 mg/dl Calcium Level 8.8 mg/dl Test 04/19/17 10:57 Bedside Glucose 134 mg/dl Mental Examination During interview pt is: cooperative (to the degree she is able) Appearance: appeared stated age Eye contact is: fair Motor behavior is: psychomotor agitation (mild, restlessness positioning of her hands) Speech: normal in rate, rhythm & volume Affect: anxious Mood is: anxious Thought process: perseveration Thought content: preoccupation (with anxiety, fearfulness.) Suicidal thought are: denied Homicidal thoughts are: denied Hallucinations: denies auditory, denies visual Cognition: language grossly intact, other (oriented only to self and place) Intelligence estimated to be: average Insight: impaired Judgement: impaired Impression / Recommendations Impression 81-year-old woman admitted medically after and unresponsive episode. Cardiac workup so far unremarkable. We are consulted to evaluate contribution of psych medicines. While here in the hospital, Risperdal has been reduced to 0.5 mg twice a day. At the time I see the patient she does not appear to be obtunded but in the same breath her anxiety does not seem well treated. She ruminates about being fearful and anxious and not knowing what to do about it. In treating a chronic anxiety disorder, it seems evident she should be on an SSRI although Celexa was recently discontinued. [facility] is faxing me the most recent note and her intake evaluation so that I might better evaluate what medication she's been on in the past. Certainly I can see how we would get to the point of using Risperdal for her severe anxiety but at this point that's only treating his symptom and not the underlying condition. I would recommend a retrial of an SSRI. I see nothing wrong with continuing Risperdal 0.5 as I do not think it sedating her, has not had any cardiac input and I cannot clearly say that it was implicated in her episode of poor responsiveness. I will review the notes once they have arrived and at that time we'll make a decision about ordering an antidepressant to treat her chronic anxiety disorder. She has been found to have a trochanteric fracture after all and this is being treated conservatively. Chronic pain is certainly not going help her anxiety or her dementia. In terms of her neurocognitive disorder, as usual , would recommend avoiding any medications that would alter consciousness such as benzodiazepines, anticholinergic agents or narcotics, to the degree we are able. Recommendations (1) RIOS (generalized anxiety disorder) 04/19 -At this point I see no reason not to continue Risperdal 0.5 mg twice a day. There is no indication that this was contributing to her unresponsive episode. - Will obtain psychiatrist outpatient records to determine reasoning for taking her off of an SSRI in view of a chronic anxiety disorder. ADD: Reviewed faxed records from Dr. Melton. Only noted ADM' include Celexa on which she reported hallucinations, and Remeron. I recommend a trial of Lexapro 5 mg. daily to target mood and anxiety but will need to check with the family as Lexapro listed as an allergy (hallucinations), and am wondering if they are confusing citalopram with escitalopram. (2) Major depressive disorder, recurrent episode, unspecified 04/19 - Although the patient doesn't see herself as depressed, family confirms that she appears depressed and he is usually worse during the holidays - As above, will review outpatient records to determine reason for not being on an antidepressant at this time (3) Unspecified dementia without behavioral disturbance 04/19 - Dementia protocol including frequent reorientation, introducing caregivers , good day night cycles - Discourage the use of benzodiazepines, anticholinergics, and pain medications to the degree that we are able Has been reviewed with Dr. Kelley Oh
--- NOTE | 2017-04-19 16:58 | Hospitalist Progress Note ---
Hospitalist Progress Note Date of Service Apr 19, 2017. Subjective Pt evaluation today including: conversation w/ patient, conversation w/ family , physical exam, chart review, lab review, review of studies, review of inpatient medication list Patient seen and evaluated. No acute events overnight. Unremarkable on tele. Discussed with daughter at bedside. Patient is confused and appears to be possibly hallucinating however seems to somewhat improve when daughter at bedside. Patient keeps saying things like "oh no" and "I need to see the doctor" and intermittently hyperventilates and looks anxious. She appears to be hypervigilant and looks around; minimal eye contact Psychiatry following up with outpatient provider. Patient is in a room with another dementia patient and they appear to be playing off each others anxiety and confusion. As one starts to get restless and anxious the roommate does too. As she is stable on tele will move to Med/ Surg and hopefully reduce agitation. Additional Comments: ROS deferred as patient is hard to keep on track. Doesn't answer questions appropriately. Medications Current Inpatient Medications Medications (Trade) Dose Ordered Sig/Shaggy Route Start Time Stop Time Status Last Admin Dose Admin Aspirin (Ecotrin Tab) 81 mg QAM PO 04/17/17 09:00 05/17/17 08:59 04/19/17 07:46 81 MG Atorvastatin Calcium (Lipitor Tab) 10 mg QPM PO 04/16/17 21:00 05/16/17 20:59 04/18/17 19:54 10 MG Docusate Sodium (coLACE CAP) 100 mg BID PO 04/16/17 21:00 05/16/17 20:59 04/19/17 07:46 100 MG Magnesium Oxide (Mag-Ox Tab) 400 mg QPM PO 04/16/17 21:00 05/16/17 20:59 04/18/17 19:55 400 MG Metoprolol Tartrate (Lopressor Tab) 12.5 mg BID PO 04/16/17 21:00 05/16/17 20:59 04/19/17 07:48 12.5 MG Tolterodine Tartrate (Detrol Tab) 2 mg BID PO 04/16/17 21:00 05/16/17 20:59 04/19/17 07:48 2 MG Acetaminophen (Tylenol Tab) 650 mg Q4H PRN PO 04/16/17 17:00 05/16/17 16:59 04/19/17 07:52 650 MG Al Hydrox/Mg Hydrox/Simethicone (Maalox Max Susp) 15 ml Q4H PRN PO 04/16/17 17:00 05/16/17 16:59 Magnesium Hydroxide (Milk Of Magnesia Susp) 30 ml Q12H PRN PO 04/16/17 17:00 05/16/17 16:59 Ondansetron HCl (Zofran Inj) 4 mg Q6H PRN IV 04/16/17 17:00 05/16/17 16:59 Morphine Sulfate (MoRPHine SULFATE INJ) 2 mg Q30M PRN IV 04/16/17 17:00 04/30/17 16:59 Polyethylene (Miralax Powder Packet) 17 gm DAILY PRN PO 04/16/17 17:00 05/16/17 16:59 Lorazepam (Ativan Inj) 0.25 mg Q8H PRN IV 04/16/17 17:45 05/16/17 17:44 Lorazepam 0.25 mg/ Syringe 0.25 ml @ 1 mls/min Q4H PRN IV 04/16/17 19:00 05/16/17 18:59 Miscellaneous (Iv Fluids Completed) 1 ea PRN PRN N/A 04/16/17 20:00 04/16/18 19:59 Ceftriaxone Sodium 1 gm/ Dextrose 50 ml @ 100 mls/hr Q24H IV 04/18/17 19:00 04/28/17 18:59 04/18/17 19:50 100 MLS/HR Lactobacillus Acidophilus (Floranex Tab) 4 tab TIDM PO 04/19/17 07:30 05/19/17 07:29 04/19/17 11:50 4 TAB Risperidone (Risperdal Tab) 0.5 mg BID PO 04/18/17 21:00 05/16/17 20:59 04/19/17 07:47 0.5 MG Ergocalciferol (Vitamin D Cap) 50,000 interunit Mcdermott@0900 PO 04/18/17 22:00 05/18/17 21:59 04/18/17 22:56 50,000 INTERUNIT Objective Vital Signs Date Time Temp Pulse Resp B/P (MAP) Pulse Ox O2 Delivery O2 Flow Rate FiO2 04/19/17 16:00 95 Room Air 04/19/17 15:08 36.8 78 19 134/72 (92) 92 Room Air 04/19/17 12:00 96 Room Air 04/19/17 11:02 37.0 65 18 138/75 (96) 95 Room Air 04/19/17 08:00 97 Room Air 04/19/17 07:27 36.9 62 18 148/65 (92) 97 Room Air 04/19/17 04:33 36.2 55 16 136/69 (91) 97 Room Air 04/19/17 04:33 Room Air 04/18/17 23:12 36.6 71 16 164/88 (113) 96 Nasal Cannula 1.0 04/18/17 23:12 Room Air 04/18/17 19:55 Nasal Cannula 1.0 04/18/17 19:25 36.7 75 24 147/81 (103) 95 Nasal Cannula 1.0 Physical Exam General Appearance: WD/WN, + mild distress (anxious) Eyes: sclerae normal ENT: hearing grossly normal Neck: supple, no JVD, trachea midline Respiratory/Chest: lungs clear, normal breath sounds, no respiratory distress, no accessory muscle use Cardiovascular: regular rate, rhythm, + systolic murmur Abdomen: normal bowel sounds, non tender, soft Extremities: no pedal edema, no calf tenderness Neurologic/Psychiatric: alert, + disoriented, + pertinent finding (anxious appearing; hypervigilant; clear speech but no context in conversation; appears to be hallucinating; intermittent hyperventilation episodes) Skin: normal color, warm/dry Laboratory Results Last 24 Hours Test 04/18/17 16:30 04/18/17 20:08 04/19/17 06:23 04/19/17 07:06 Bedside Glucose 155 mg/dl 203 mg/dl 164 mg/dl White Blood Count 8.35 K/uL Red Blood Count 3.61 M/uL Hemoglobin 10.6 g/dL Hematocrit 32.2 % Mean Corpuscular Volume 89.2 fL Mean Corpuscular Hemoglobin 29.4 pg Mean Corpuscular Hemoglobin Concent 32.9 g/dl Platelet Count 146 K/uL Mean Platelet Volume 10.0 fL Neutrophils (%) (Auto) 76.7 % Lymphocytes (%) (Auto) 13.7 % Monocytes (%) (Auto) 8.9 % Eosinophils (%) (Auto) 0.1 % Basophils (%) (Auto) 0.1 % Neutrophils # (Auto) 6.41 K/uL Lymphocytes # (Auto) 1.14 K/uL Monocytes # (Auto) 0.74 K/uL Eosinophils # (Auto) 0.01 K/uL Basophils # (Auto) 0.01 K/uL RDW Standard Deviation 41.5 fL RDW Coefficient of Variation 12.8 % Immature Granulocyte % (Auto) 0.5 % Immature Granulocyte # (Auto) 0.04 K/uL Activated Partial Thromboplast Time 24.7 SECONDS Partial Thromboplastin Ratio 1.0 Sodium Level 139 mmol/L Potassium Level 4.3 mmol/L Chloride Level 104 mmol/L Carbon Dioxide Level 28 mmol/L Anion Gap 7.0 mmol/L Blood Urea Nitrogen 33 mg/dl Creatinine 0.91 mg/dl Est Creatinine Clear Calc Drug Dose 50.3 ml/min Estimated GFR () 69.1 Estimated GFR (Non- 59.6 BUN/Creatinine Ratio 36.6 Random Glucose 139 mg/dl Calcium Level 8.8 mg/dl Test 04/19/17 10:57 Bedside Glucose 134 mg/dl Assessment and Plan 81 years old lady with dementia, HTN, Hx of CVA, DMII and frequent falls. presented to the ED with syncope on field she was hypoventilating when she was unresponsive, requiring bag mask by paramedics. no evidence of losing pulse or BP Encephalopathy Superimposed on Dementia: Infection vs Multifactorial Delirium: - She is afebrile and without leukocytosis; on Abx for UTI - Appears hypervigilant and anxious; may be hallucinating - Reduced Resperal - currently on Risperdal 0.5 mg BID - Psych following - appreciate recommendations -- Consider trial of Lexapro but plan to discuss with family as outpatient records report hallucinations from Celexa not Lexapro Syncope and Collapse with Hypoventilation: - Reporting CP prior to collapse - trops peaked at 0.6 and trending down - remains in NSR on tele - Cardiology following - appreciate further recommendations - no plan on current stress testing; valve appears to be working appropriately UTI POA - Group B Strep: - Continue Ceftriaxone 1 g IV daily Acute Fx of L Greater Trochanter with Minimal Impaction and No Displacement: - Evidence of multiple lumbar old compression fracture - Conservative management with WBAT - Orthopedics following - did cortisone injection to knee - [facility] Grade I Diastolic Dysfunction (STABLE)/Bioprosthetic Aortic Valve - Lopressor 12.5 mg BID T2DM: - Managed off medications - A1c of 5.9 in 2016 Code Status: FULL RESUSCITATION DVT Prophylaxis: Disposition: - Move to Med/Surg; await any further input from cardiology and psychiatry - Possible D/C next 1-2 days to [facility] - plans to return home after and live with daughter Continued [facility] stay due to: other (delirium) Discharge planning: rehab hospital
[2017-04-19] MEDS: CEFTRIAXONE SOD INJ 1 GM in DEXTROSE 5% ADD-VANTAGE 50ML 50 ML IV SCH (18:54)
[2017-04-19] MEDS: MAGNESIUM OXIDE 400 MG TAB PO SCH (20:22)
[2017-04-19] MEDS: ATORVASTATIN 10 MG TAB PO SCH (20:23)
[2017-04-20 07:40] VITALS: BP 176/74; PULSE 74; TEMP 36.6; O2SAT 99
[2017-04-20 08:04] LABS: HEMATOCRIT 34.1 % (37-47); MEAN CELL VOLUME 88.8 fL (80-100); MEAN CORPUSCULAR HEMOGLOBIN 28.9 pg (25-34); MEAN CORPUSCULAR HGB CONC 32.6 g/dl (32-36); MEAN PLATELET VOLUME 9.7 fL (7.4-10.4); PLATELET COUNT 167 K/uL (130-400); RED BLOOD COUNT 3.84 M/uL (4.2-5.4); WHITE BLOOD COUNT 9.47 K/uL (4.8-10.8)
[2017-04-20 08:12] LABS: PARTIAL THROMBOPLASTIN RATIO 0.9
[2017-04-20 08:29] LABS: BUN/CREATININE RATIO 44.1 (10-20); CALCIUM 9.1 mg/dl (8.5-10.1); CREATININE 0.89 mg/dl (0.60-1.20); POTASSIUM 4.2 mmol/L (3.5-5.1)
[2017-04-20] MEDS: METOPROLOL TARTRATE 25 MG TAB PO SCH ×2 (08:39→21:18)
[2017-04-20] MEDS: LACTOBACILLUS ACIDOPHILUS (FLORANEX) TAB PO SCH ×3 (08:39→17:16)
[2017-04-20] MEDS: DOCUSATE SODIUM 100 MG CAP PO SCH ×2 (08:40→21:18)
[2017-04-20] MEDS: ASPIRIN 81 MG ECTAB PO SCH (08:40)
[2017-04-20] MEDS: TOLTERODINE TARTRATE 2 MG TAB PO SCH ×2 (08:40→21:18)
[2017-04-20] MEDS: RISPERIDONE 0.5 MG TAB PO SCH ×2 (08:40→21:18)
[2017-04-20 11:06] VITALS: BP 145/80; PULSE 66; O2SAT 96
[2017-04-20] MEDS ORDERED: CEPHALEXIN MONOHYDRATE 500 MG CAP PO ONE (13:01)
[2017-04-20] MEDS ORDERED: LCTX PO (13:05)
[2017-04-20] MEDS ORDERED: RISP-99 PO (13:05)
[2017-04-20] MEDS ORDERED: CEPH-571 PO (13:05)
[2017-04-20 15:47] VITALS: BP 119/67; PULSE 64; TEMP 37.4; O2SAT 96
[2017-04-20 16:15] VITALS: O2SAT 96
--- NOTE | 2017-04-20 18:17 | Hospitalist Progress Note ---
Hospitalist Progress Note Date of Service Apr 20, 2017. Subjective Pt evaluation today including: conversation w/ patient, conversation w/ family , physical exam, chart review, lab review, review of studies, review of inpatient medication list Patient seen and evaluated. A lot more calm now that she is in a private room. Patient peacefully resting with daughter at bedside. Discussed with her and son Dixon over the phone. Explained yesterdays confusion and discussed PT services. He was concerned she was not getting up and did explain that PT in-hospital is only for short durations due to patient load and cannot offer services such as [facility] or SNFs. He verbalized understanding. Discussed psychiatry's recommendations and possibly starting an antidepressant. He felt he made a bad decision about reducing her Risperdal but explained that this is a valid approach to prevent issues and psych agrees with continuing this and possibly adding Lexapro (confirming with family if this truly was an issue as outpatient records show Celexa caused hallucinations) Explained that she is generally deconditioned and this is likely a mix of her dementia/confusion, UTI, and pain/arthritis Son concerned that possibly [facility] may be too aggressive and concern that she may not be ready for that level of therapy but does prefer that over SNF at this time. Explained medications for depression/anxiety and that these will take time to take effect. Will follow-up with psych in regards to this. Additional Comments: ROS deferred due to dementia. States she isn't having pain "right now" and only states she is scared but could not elaborate. Medications Current Inpatient Medications Medications (Trade) Dose Ordered Sig/Shaggy Route Start Time Stop Time Status Last Admin Dose Admin Aspirin (Ecotrin Tab) 81 mg QAM PO 04/17/17 09:00 05/17/17 08:59 04/20/17 08:40 81 MG Atorvastatin Calcium (Lipitor Tab) 10 mg QPM PO 04/16/17 21:00 05/16/17 20:59 04/19/17 20:23 10 MG Docusate Sodium (coLACE CAP) 100 mg BID PO 04/16/17 21:00 05/16/17 20:59 04/20/17 08:40 100 MG Magnesium Oxide (Mag-Ox Tab) 400 mg QPM PO 04/16/17 21:00 05/16/17 20:59 04/19/17 20:22 400 MG Metoprolol Tartrate (Lopressor Tab) 12.5 mg BID PO 04/16/17 21:00 05/16/17 20:59 04/20/17 08:39 12.5 MG Tolterodine Tartrate (Detrol Tab) 2 mg BID PO 04/16/17 21:00 05/16/17 20:59 04/20/17 08:40 2 MG Acetaminophen (Tylenol Tab) 650 mg Q4H PRN PO 04/16/17 17:00 05/16/17 16:59 04/19/17 07:52 650 MG Al Hydrox/Mg Hydrox/Simethicone (Maalox Max Susp) 15 ml Q4H PRN PO 04/16/17 17:00 05/16/17 16:59 Magnesium Hydroxide (Milk Of Magnesia Susp) 30 ml Q12H PRN PO 04/16/17 17:00 05/16/17 16:59 Ondansetron HCl (Zofran Inj) 4 mg Q6H PRN IV 04/16/17 17:00 05/16/17 16:59 Morphine Sulfate (MoRPHine SULFATE INJ) 2 mg Q30M PRN IV 04/16/17 17:00 04/30/17 16:59 Polyethylene (Miralax Powder Packet) 17 gm DAILY PRN PO 04/16/17 17:00 05/16/17 16:59 Lorazepam (Ativan Inj) 0.25 mg Q8H PRN IV 04/16/17 17:45 05/16/17 17:44 Lorazepam 0.25 mg/ Syringe 0.25 ml @ 1 mls/min Q4H PRN IV 04/16/17 19:00 05/16/17 18:59 Miscellaneous (Iv Fluids Completed) 1 ea PRN PRN N/A 04/16/17 20:00 04/16/18 19:59 Lactobacillus Acidophilus (Floranex Tab) 4 tab TIDM PO 04/19/17 07:30 05/19/17 07:29 04/20/17 17:16 4 TAB Risperidone (Risperdal Tab) 0.5 mg BID PO 04/18/17 21:00 05/16/17 20:59 04/20/17 08:40 0.5 MG Ergocalciferol (Vitamin D Cap) 50,000 interunit Mcdermott@0900 PO 04/18/17 22:00 05/18/17 21:59 04/18/17 22:56 50,000 INTERUNIT Cephalexin Monohydrate (Keflex Cap) 500 mg BID PO 04/20/17 21:00 04/30/17 20:59 Objective Vital Signs Date Time Temp Pulse Resp B/P (MAP) Pulse Ox O2 Delivery O2 Flow Rate FiO2 04/20/17 15:47 37.4 64 16 119/67 (84) 96 Room Air 04/20/17 11:06 66 145/80 (101) 96 Room Air 04/20/17 07:40 36.6 74 20 176/74 (108) 99 Room Air 04/20/17 07:29 Room Air 04/19/17 23:11 37.3 66 18 130/70 (90) 95 Room Air 04/19/17 20:15 87 161/71 (101) 04/19/17 19:15 Room Air 04/19/17 18:28 36.9 79 16 152/66 (94) 94 Room Air Physical Exam General Appearance: WD/WN, no apparent distress Eyes: sclerae normal Neck: supple, no JVD, trachea midline Respiratory/Chest: lungs clear, normal breath sounds, no respiratory distress, no accessory muscle use Cardiovascular: regular rate, rhythm, no gallop, no murmur Abdomen: normal bowel sounds, non tender, soft Extremities: no pedal edema Neurologic/Psychiatric: alert, + disoriented Skin: normal color, warm/dry Laboratory Results Last 24 Hours Test 04/20/17 07:46 04/20/17 12:20 04/20/17 17:14 White Blood Count 9.47 K/uL Red Blood Count 3.84 M/uL Hemoglobin 11.1 g/dL Hematocrit 34.1 % Mean Corpuscular Volume 88.8 fL Mean Corpuscular Hemoglobin 28.9 pg Mean Corpuscular Hemoglobin Concent 32.6 g/dl RDW Standard Deviation 41.9 fL RDW Coefficient of Variation 13.1 % Platelet Count 167 K/uL Mean Platelet Volume 9.7 fL Activated Partial Thromboplast Time 22.6 SECONDS Partial Thromboplastin Ratio 0.9 Sodium Level 138 mmol/L Potassium Level 4.2 mmol/L Chloride Level 104 mmol/L Carbon Dioxide Level 26 mmol/L Anion Gap 8.0 mmol/L Blood Urea Nitrogen 39 mg/dl Creatinine 0.89 mg/dl Est Creatinine Clear Calc Drug Dose 51.4 ml/min Estimated GFR () 70.9 Estimated GFR (Non- 61.2 BUN/Creatinine Ratio 44.1 Random Glucose 105 mg/dl Calcium Level 9.1 mg/dl Bedside Glucose 107 mg/dl 142 mg/dl Assessment and Plan 81 years old lady with dementia, HTN, Hx of CVA, DMII and frequent falls. presented to the ED with syncope on field she was hypoventilating when she was unresponsive, requiring bag mask by paramedics. no evidence of losing pulse or BP Encephalopathy Superimposed on Dementia: Infection vs Multifactorial Delirium: - She is afebrile and without leukocytosis; on Abx for UTI - Appears hypervigilant and anxious; may be hallucinating - seems to be improving from yesterday - improved once moved from room with other dementia patient - Reduced Resperal - currently on Risperdal 0.5 mg BID - Psych following - appreciate recommendations -- Consider trial of Lexapro but plan to discuss with family as outpatient records report hallucinations from Celexa not Lexapro Syncope and Collapse with Hypoventilation: Possible Vasovagal? - Reporting CP prior to collapse - trops peaked at 0.6 and trending down - Cardiology following - appreciate further recommendations - no plan on current stress testing; valve appears to be working appropriately UTI POA - Group B Strep: - Convert to Keflex 500 mg BID to finish course Acute Fx of L Greater Trochanter with Minimal Impaction and No Displacement: - Evidence of multiple lumbar old compression fracture - Conservative management with WBAT - Orthopedics following - did cortisone injection to knee - Plans to return to [facility] Grade I Diastolic Dysfunction (STABLE)/Bioprosthetic Aortic Valve - Lopressor 12.5 mg BID T2DM: - Managed off medications - A1c of 5.9 in 2016 Code Status: FULL RESUSCITATION Disposition: - Discussed with daughter and bedside and son over the phone for concerns about returning today - will F/U with psych tomorrow - Reviewed PT notes - medically suitable to D/C and will discuss again with family tomorrow to address any further concerns Continued [facility] stay due to: ambulation difficulties Discharge planning: rehab hospital
[2017-04-20 21:15] VITALS: BP 131/72; PULSE 68
[2017-04-20] MEDS: CEPHALEXIN MONOHYDRATE 500 MG CAP PO SCH (21:18)
[2017-04-20] MEDS: ATORVASTATIN 10 MG TAB PO SCH (21:19)
[2017-04-20] MEDS: MAGNESIUM OXIDE 400 MG TAB PO SCH (21:19)
[2017-04-20 23:08] VITALS: BP 158/70; PULSE 75; TEMP 37.1; O2SAT 95
--- NOTE | 2017-04-21 07:13 | PROGRESS NOTE ---
DATE: 04/21/2017 CHIEF COMPLAINT: Osteoarthritis of the right knee and questionable small greater trochanteric hip fracture. PROGRESS: She was seen and examined at bedside. She was sleeping when I entered the room. She seems to be breathing and resting comfortably. I tried to awake her, but she was very disoriented. I was unable to get a good examination because of her dementia and level of sedation. PHYSICAL EXAMINATION: Lying with her leg out in full extension. I did do gentle range of motion of her knee and her hip. She did grimace some when I did that, but she also grimaced a little when I moved her other leg. IMPRESSION: 1. Advanced osteoarthritis of the right knee. 2. Questionable nondisplaced greater trochanteric hip fracture. PLAN: I looked over the therapy notes and they say she is still having some pain with flexion and extension of her knees and her hip. We tried an injection in the knee a couple days ago; I am not sure if it is helping much or not. With regards to her hip, she can be up and weightbearing as tolerated. We will continue to treat her conservatively. She is orthopedically stable for discharge when medically ready. The questionable greater trochanteric fracture will not require any followup in the office; all that should heal fine on its own. I am going to sign off. Please contact me if you need any further assistance. My personal cell phone is [phone].
[2017-04-21 07:20] VITALS: BP 149/75; PULSE 64; TEMP 37.5; O2SAT 96
[2017-04-21 08:31] LABS: HEMATOCRIT 33.9 % (37-47); MEAN CELL VOLUME 89.7 fL (80-100); MEAN CORPUSCULAR HEMOGLOBIN 29.9 pg (25-34); MEAN CORPUSCULAR HGB CONC 33.3 g/dl (32-36); MEAN PLATELET VOLUME 9.7 fL (7.4-10.4); PLATELET COUNT 160 K/uL (130-400); RED BLOOD COUNT 3.78 M/uL (4.2-5.4); WHITE BLOOD COUNT 8.52 K/uL (4.8-10.8)
[2017-04-21 08:40] LABS: PARTIAL THROMBOPLASTIN RATIO 0.8
[2017-04-21] MEDS ORDERED: ESCITALOPRAM OXALATE 10 MG TAB PO SCH (09:00)
[2017-04-21] MEDS: CEPHALEXIN MONOHYDRATE 500 MG CAP PO SCH (09:02)
[2017-04-21] MEDS: LACTOBACILLUS ACIDOPHILUS (FLORANEX) TAB PO SCH ×3 (09:02→17:25)
[2017-04-21] MEDS: TOLTERODINE TARTRATE 2 MG TAB PO SCH (09:03)
[2017-04-21] MEDS: RISPERIDONE 0.5 MG TAB PO SCH (09:03)
[2017-04-21] MEDS: DOCUSATE SODIUM 100 MG CAP PO SCH (09:03)
[2017-04-21] MEDS: METOPROLOL TARTRATE 25 MG TAB PO SCH (09:03)
[2017-04-21] MEDS: ASPIRIN 81 MG ECTAB PO SCH (09:03)
[2017-04-21] MEDS ORDERED: LDDP5 EX (11:51)
[2017-04-21] MEDS ORDERED: LXP10 PO (11:51)
--- NOTE | 2017-04-21 12:03 | Discharge Instructions ---
Discharge Instructions Date of Service Apr 21, 2017. Admission Reason for Admission: Unresponsive Episode Discharge Discharge Diagnosis / Problem: Unresponsive Episode - Possible Vagal? Discharge Goals Goal(s): Decrease discomfort, Improve function, Increase independence Activity Recommendations Activity Level: Assistance Required Therapies: Physical Therapy, Occupational Therapy . Additional Information Patient informed of condition: Yes Advance Directives: Yes DNR: No Level of Care: Acute Rehab Communicable Disease: No Prognosis: Stable Sears Catheter: No Instructions / Follow-Up Instructions / Follow-Up 81 years old lady with dementia, HTN, Hx of CVA, DMII and frequent falls. presented to the ED with syncope on field she was hypoventilating when she was unresponsive, requiring bag mask by paramedics. no evidence of losing pulse or BP Encephalopathy Superimposed on Dementia: Infection vs Multifactorial Delirium: - She is afebrile and without leukocytosis; UTI and will complete Keflex course - Appears hypervigilant and anxious; may be hallucinating - is stable and daughter reporting baseline mentation -- She keeps stating she is scared and continues to appear hypervigilant - Reduced Resperal - currently on Risperdal 0.5 mg BID (previously on TID and may consider going back to this dose if needed) - Psych followed - sees Dr. Melton as outpatient - recommend to have f/u appointment - Started Lexapro 5 mg daily and may consider upward titration if necessary Syncope and Collapse with Hypoventilation: Possible Vasovagal? - No definitive findings for this episode - patient does get extremely anxious and scared; possibly tensing and having vagal episode? - Reporting CP prior to collapse - trops peaked at 0.6 and trending down - echo and EKG without acute findings - echo shows appropriate functioning valve and EF normal - Cardiology followed - no invasive testing at this time - recommend follow-up with outpatient cardiology - sees Dr. Andersen UTI POA - Group B Strep: - Converted to Keflex 500 mg BID to finish course Acute Fx of L Greater Trochanter with Minimal Impaction and No Displacement: - Evidence of multiple lumbar old compression fracture - Conservative management with WBAT - Orthopedics following - did cortisone injection to knee - Plans to return to [facility] - Tylenol on board for pain - patient does not ask for pain medication but appears to need something - would monitor for need for pain medication -- Have been avoiding narcotics due to risk of worsening confusion Grade I Diastolic Dysfunction/Bioprosthetic Aortic Valve - STABLE - Lopressor 12.5 mg BID T2DM: - Managed off medications - A1c of 5.9 in 2016 Code Status: FULL RESUSCITATION Disposition: - Recommend follow-up with PCP and Cardiology upon leaving [place]. Thanks Current Hospital Diet Patient's current hospital diet: AHA Diet (Heart Healthy), Diabetes Type 2 Diet Discharge Diet Recommended Diet: AHA Diet (Heart Healthy), Low Sodium Diet (2gm Na) Pending Studies Studies pending at discharge: no Laboratory Results Hemoglobin A1c Test 04/13/17 15:10 Range/Units Estimated Average Glucose 123 mg/dl Hemoglobin A1c 5.9 H 4.5-5.6 % Medical Emergencies . Who to Call and When: Medical Emergencies: If at any time you feel your situation is an emergency, please call 911 immediately. . Non-Emergent Contact Non-Emergency issues call your: Primary Care Provider Call Non-Emergent contact if: you have a fever, your pain is concerning you, you have any medication questions . . "Provider Documentation" section prepared by Alida Herring. . Core Measure Problem Core Measures: None
--- NOTE | 2017-04-21 12:05 | Psychiatric Progress Notes ---
Psychiatric Progress Note Date of Service Apr 21, 2017. Notes Asked to see the family at bedside re: concerns for psych meds. Spoke with patient and daughter Lucille. Lucille believes that her mother looks "back to her old self" and has only said that she is scared once today. She believes that the antidepressants are a good idea. She says that her brother Dixon had some concerns, but he is at work. I reviewed the Lexapro and risperdal dosing, and that we would not see full benefit from meds for several weeks. Lucille expressed understanding, and her hope that her mother could go to [facility] today. She had no further questions.
[2017-04-21 13:47] VITALS: BP 149/75; PULSE 64; TEMP 37.5; O2SAT 96
[2017-04-21 16:14] VITALS: BP 144/71; PULSE 73; TEMP 36.8; O2SAT 95
--- NOTE | 2017-04-21 17:11 | Discharge Summary ---
Discharge Summary Date of Service Apr 21, 2017. Discharge Summary Admission Date: Apr 18, 2017 at 21:22 Discharge Date: Apr 20, 2017 Discharge Disposition: Rehab Principal Diagnosis: Syncopal Episode; UTI; L Greater Trochanter Fx Problems/Secondary Diagnoses: 1. CVA 2. T2DM 3. HTN 4. Vascular Dementia 5. Frequent Falls 6. Aortic Stenosis S/P Bioprosthetic AVR 7. H/O DVT Immunizations: Have You Had Influenza Vaccine: Yes Influenza Vaccine Date: Apr 01, 2011 History of Tetanus Vaccine?: utd Tetanus Immunization Date: Mar 30, 2009 History of Pneumococcal: Yes Pneumococcal Date: Apr 02, 2011 History of Hepatitis B Vaccine: Unknown Procedures: HEAD CT NONCONTRAST Comparison: Head CT 04/13/2017. Findings: The paranasal sinuses and mastoid air cells are clear. The calvarium and skull base are intact. There is no mass, hematoma, midline shift, acute infarct. White matter hypodensity is nonspecific but suggestive of microvascular ischemic change. The ventricles and sulci demonstrate mild age-related involutional changes. Old bilateral MCA territory infarcts, right greater than left. There is also an old lacunar infarct seen within the left basal ganglia. This remains unchanged. Impression: No significant change compared to the prior study. No acute intracranial abnormality. Old infarcts as described above. R KNEE 1 OR 2 VIEWS ROUTINE, L KNEE 1 OR 2 VIEWS ROUTINE FINDINGS: RIGHT: Bones appear osteopenic. [Mental degenerative changes are noted, mild to moderate within the medial compartment and moderate to severe within the patellofemoral and lateral compartments. There is spurring of the tibial spines. No acute fracture or dislocation identified. Small joint effusion with mild soft tissue swelling. Vascular calcifications noted. LEFT: Tricompartment osteoarthritis is noted, which predominantly appears moderate throughout. The bones appear osteopenic. No acute fracture or dislocation identified. Small joint effusion. Vascular calcifications noted. IMPRESSION: 1. Small bilateral joint effusions without acute fracture or dislocation identified. 2. 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 3. Peripheral vascular disease. R HIP-LOWER EXTREMITY WITHOUT, L HIP-LOWER EXTREMITY WITHOUT FINDINGS: RIGHT HIP: Bones appear mildly demineralized. Moderate right femoral acetabular osteoarthritis. There is spurring of the greater trochanter. No acute fracture or dislocation identified. There are degenerative changes of the pubic symphysis. No acute fracture of the imaged right hemipelvis identified. Vascular calcifications are noted. No acute intrapelvic abnormality identified. There are phleboliths of the pelvis. Uterus appears to be surgically absent. LEFT HIP: Small left hip joint effusion suggested with mild soft tissue swelling surrounding the acute fracture which involves the superior aspect of the greater trochanter which demonstrates minimal impaction without significant displacement or angulation nicely seen on image 192 series 2, image 66 series 400 and image 80 series 401. No fracture extension into the intertrochanteric region identified. The lesser trochanter appears intact. Moderate osteoarthritis. Acetabulum appears intact. The imaged left hemipelvis also appears intact. IMPRESSION: 1. Acute isolated fracture involves the superior portion of the left greater trochanter with minimal impaction and no significant displacement. No fracture extension into the intertrochanteric femur or femoral neck. Mild associated left hip soft tissue swelling. 2. No acute fracture or dislocation identified involving the pelvis or right hip. 3. Moderate degenerative changes of the bilateral femoral acetabular joints. 4. Bones appear osteopenic. Consultations: 1. Cardiology 2. Psychiatry 3. PT/OT Medication Reconciliation New Medications: Cephalexin (Keflex) 500 Mg Cap 1 CAP PO BID, #5 CAP Lidocaine (Lidocaine) 1 Patch Tdsy 1 PATCH EX DAILY for 14 Days For pain. Can be used on Hip. Escitalopram Oxalate (Escitalopram Oxalate) 10 Mg Tab 5 MG PO QAM for 14 Days, #7 TAB Lactobacillus Acidophilus (Floranex) 1 Tab Tab 4 TAB PO TIDM for 7 Days, TAB Changed Medications: Risperidone (Risperidone) 0.5 Mg Tab 0.5 MG PO BID for 30 Days, #60 TAB (Changed from: TID) Continued Medications: Acetaminophen (Tylenol) 325 Mg Tab 650 MG PO Q4 PRN for Pain, TAB Aspirin (Aspirin Ec) 81 Mg Tab 81 MG PO QAM Atorvastatin (Lipitor) 20 Mg Tab 10 MG PO QPM, TAB Cholecalciferol (Vitamin D) 2,000 Unit Tab 1 TAB PO QAM Coenzyme Q10 (Ubidecarenone) (Co Q10) 50 Mg Cap 1 CAP PO DAILY, CAP Diclofenac Sodium (Topical) (Voltaren 1% Top Gel) 1 % Gel 1 APPLN TOP QID for Pain Docusate Sodium (Colace) 100 Mg Cap 1 CAP PO BID, CAP Magnesium Hydroxide (Milk Of Magnesia) 30 Ml Susp 30 ML PO PRN for Constipation, ML Magnesium Oxide (Mag-Ox) 400 Mg Tab 400 MG PO QPM, TAB Metoprolol Tartrate (Lopressor) (Lopressor) 25 Mg Tab 12.5 MG PO BID Polyethylene Glycol 3350 (Miralax) 1 Pow Pow 17 GM PO HS Tolterodine Tartrate (Tolterodine Tartrate) 2 Mg Tab 2 MG PO BID Discharge Exam ROS deferred as patient has advanced dementia. Doesn't directly give answered. Intermittent said she was scared but would not elaborate. When asked about pain she stated initially "not now" but then said "not that bad" Physical Exam: General Appearance: WD/WN, + mild distress (anxiousness/confusion) Eyes: sclerae normal ENT: hearing grossly normal Neck: supple, no JVD, trachea midline Respiratory/Chest: lungs clear, normal breath sounds, no respiratory distress, no accessory muscle use Cardiovascular: regular rate, rhythm, no gallop, no murmur Abdomen / GI: normal bowel sounds, non tender, soft Extremities: no calf tenderness, no pedal edema Neurologic/Psychiatric: alert, + disoriented Skin: normal color, warm/dry Hospital Course ADMISSION: 81 y/o F Hx CVA, DM, HTN, dementia, frequent falls - recently hospitalized following a fall due to persistent R hip pain and immobility without fracture. Pt was D/Cd to [facility] 04/13. She was sitting in her chair undergoing a rehab activity when she suddenly lost consciousness and slouched forward. She was unresponsive for several minutes and was reported to be hypoventilating when EMS arrived. The pt was treated with a bag mask and gradually regained consciousness on arrival to the ER. She remains lethargic at the time of admission and is not able to contribute to the ROS/HPI. Family are present at bedside and confirm that aside from complaining of persistent L hip and leg pain, she did not have any other acute symptoms prior to losing consciousness. Initial labs reveal an elevated troponin, however, previous labs indicate this may be chronic. HOSPITAL COURSE: Ms. Easley was admitted for a Syncopal Episode and UTI. Unfortunately, no direct cause identified for her syncope and need for respiratory resuscitation. She remained in sinus rhythm on monitoring. Cardiology was following and echocardiogram revealed normal EF and well-working replacement valve. Her troponins did trend up to 0.6 but trended down without acute changes on EKG. Possible chance of a vasovagal episode as patient is anxious, scared, probably in pain, and tenses when trying to move. During admission, when her confusion was the worst she would intermittently hyperventilate. Her Risperdal was decreased from TID to BID due to concern of possible worsening of weakness. Psychiatry was involved and started Lexapro 5 mg daily to help with depression and anxiety. Patient had worsening of dementia/ delirium while hospitalized but returned to baseline per family on discharged. She grew out Group B Strep on urine culture and will complete a course of Abx with Keflex 500 mg BID. Upon presentation, she was found to have a L greater trochanter fx with minimal impaction and no displacement. Orthopedics plan for no surgical intervention but to allow WBAT. They did place a steroid injection into her knee to help with pain. Total Time Spent: Greater than 30 minutes This includes examination of the patient, discharge planning, medication reconciliation, and communication with other providers. Discharge Instructions Please refer to the electronic Patient Visit Report (Discharge Instructions) for additional information. Additional Copies To RV. Orourke MD; [facility]
== END 2017-04-21 19:45 | DRG 312 ==
LOC: EDBD 14:04 → C.EDB 14:05 → C.2T 16:49 → ENRESERV 17:17 → OBSVTOIN 04-18 21:22 → EDBEDREQ 04-19 16:06 → ENRESERV 04-19 16:09 → C.MSN 04-19 18:07
PROVIDERS: ADMIT Internal Medicine; ATTEND Internal Medicine Sports Medicine
DX: R55 Syncope and collapse (principal); S72.102A Unspecified trochanteric fracture of left femur, initial encounter for closed fracture; G93.40 Encephalopathy, unspecified; N39.0 Urinary tract infection, site not specified; F32.9 Major depressive disorder, single episode, unspecified; E11.9 Type 2 diabetes mellitus without complications; I11.9 Hypertensive heart disease without heart failure; F03.90 Unspecified dementia, unspecified severity, without behavioral disturbance, psychotic disturbance, mood disturbance, and anxiety; M17.11 Unilateral primary osteoarthritis, right knee; W19.XXXA Unspecified fall, initial encounter; Z86.73 Personal history of transient ischemic attack (TIA), and cerebral infarction without residual deficits; Z98.51 Tubal ligation status; Z90.710 Acquired absence of both cervix and uterus; Z79.82 Long term (current) use of aspirin

== ENCOUNTER → 2017-05-08 | Outpatient (CLI) | payer OTHER, BC ==
[~2017-05-08] MED LIST changes: +CEPH-571 PO; -COEN100C11 PO; +COEN1CAP28 PO; +DICL1GEL12 TOP; +DOCU-94 PO; +LCTX PO; +LDDP5 EX; +LXP10 PO; -SENNTAB23 PO
[2017-05-08 06:58] LABS: BASO % 0.1 %; BASO ABS # 0.01 K/uL (0-0.2); EOS % 2.3 %; EOS ABS # 0.16 K/uL (0-0.5); HEMATOCRIT 32.2 % (37-47); HEMOGLOBIN 10.8 g/dL (12.0-16.0); IG# 0.06 K/uL (0.00-0.02); LYMPH % 25.7 %; LYMPH ABS # 1.82 K/uL (1.2-3.4); MEAN CELL VOLUME 88.5 fL (80-100); MEAN CORPUSCULAR HEMOGLOBIN 29.7 pg (25-34); MEAN CORPUSCULAR HGB CONC 33.5 g/dl (32-36); MEAN PLATELET VOLUME 9.9 fL (7.4-10.4); MONO % 9.8 %; MONO ABS # 0.69 K/uL (0.11-0.59); NEUT % 61.3 %; NEUT ABS # 4.33 K/uL (1.4-6.5); PLATELET COUNT 147 K/uL (130-400); RED CELL DISTRIBUTION WIDTH CV 13.9 % (11.5-14.5); RED CELL DISTRIBUTION WIDTH SD 44.9 fL (36.4-46.3); WHITE BLOOD COUNT 7.07 K/uL (4.8-10.8)
[2017-05-08 07:11] LABS: ALBUMIN 2.5 gm/dl (3.4-5.0); ALT/SGPT 19 U/L (12-78); AST/SGOT 19 U/L (15-37); BLOOD UREA NITROGEN 28 mg/dl (7-18); CALCIUM 8.8 mg/dl (8.5-10.1); CARBON DIOXIDE 26 mmol/L (21-32); CREATININE 0.74 mg/dl (0.60-1.20); GLUCOSE 96 mg/dl (70-99); POTASSIUM 4.1 mmol/L (3.5-5.1); SODIUM 140 mmol/L (136-145)
[2017-05-08 07:14] LABS: ALKALINE PHOSPHATASE 101 U/L (45-117)
--- NOTE | 2017-05-14 07:20 | CODING QUERY NO DIAGNOSIS ---
TREATMENT RENDERED WITHOUT A DIAGNOSIS Roma SHAH, To promote full compliance with coding requirements relating to patient care, physician participation is requested in all cases of education administrator uncertainty. Please assist us with providing a diagnosis/symptom for the test(s) below: A diagnosis/symptom was not documented on your Order. A valid diagnosis/symptom is required to bill all insurances. Please remember that we are unable to code a diagnosis of rule out, probable, possible, questionable, or suspected. Tests that require a diagnosis: * CBC W/AUTO DIFF DIAGNOSIS: * CMP DIAGNOSIS: DATE OF SERVICE: 05/08/17 Provider Signature: Date: Thank you [facility] Information Management Once completed, please kindly fax back to [phone] For questions please call [phone]
== END | disposition home or self-care (01) ==
LOC: C.LABUPNIT 10:24
PROVIDERS: ATTEND Nurse Practitioner Family
DX: R41.0 Disorientation, unspecified (principal); E78.5 Hyperlipidemia, unspecified

== ENCOUNTER → 2017-06-17 | Outpatient (CLI) | payer OTHER, BC ==
[~2017-06-17] MED LIST changes: +ATOR10TA82 PO; +CHOL20007 PO; +CIPR1TAB11 PO; +LDDP5 TOP; +LORA-741 PO; +RISP0.5T4 PO; +RIVA1.5C6 PO; +SENN-61 PO; +TRAZ50TA35 PO
== END ==
LOC: C.LABUPNIT 21:15
PROVIDERS: ATTEND Nurse Practitioner Family
DX: N39.0 Urinary tract infection, site not specified (principal)

== ENCOUNTER 2017-06-20 10:10 | Inpatient (IN) | payer OTHER, BC ==
[~2017-06-20] VITALS: Ht 167.6 cm; Wt 75.6 kg
[~2017-06-20 10:10] MED LIST changes: -ATOR10TA82 PO; -CHOL20007 PO; -CIPR1TAB11 PO; -LDDP5 TOP; -LORA-741 PO; -RISP0.5T4 PO; -RIVA1.5C6 PO; -SENN-61 PO; -TRAZ50TA35 PO
[2017-06-20] MEDS ORDERED: SODIUM CHLORIDE 0.9% 1000ML 1,000 ML IV STA (11:06)
--- NOTE | 2017-06-20 11:10 | EMERGENCY ROOM VISIT NOTE ---
History Report prepared by Savita: Shirin Leon Under the Supervision of: Dr. Douglas Wilburn M.D. First contact with patient: 10:49 Chief Complaint: RESPIRATORY PROBLEMS Stated Complaint: UTI,PNEUMONIA History of Present Illness The patient is a 81 year old female who presents to the Emergency Room with complaints of worsening respiratory problems that began a few weeks ago. The patient experienced a fall a few weeks ago, which caused the patient to be placed in a rehabilitation facility. Her children note that their mother showed some improvement, but her behavior and mental status declined after recently being diagnosed with a urinary tract infection.The patient's son states that the patient was placed on Ativan, secondary to her being very anxious. Her children state that they have been having difficulty trying to find the appropriate care for the patient due to limitations from her medical insurance. They state that she has not been walking or talking recently, noting she has been having difficulty moving and urinating on her own. The patient is currently living at home. HPI is limited secondary to the patient having slight dementia and an altered mental status. Source of History: family (her children) History Limited By: AMS, dementia (slight ) Onset: few weeks ago Position: other (global) Quality: other (respiratory problems) Timing: worsening Associated Symptoms: + urinary symptoms Review of Systems See HPI for pertinent positives and negatives. A total of ten systems were reviewed and were otherwise negative. Past Medical & Surgical Medical Problems: (1) Anxiety (2) Aortic stenosis (3) blood clots (4) Chest pain (5) Confusion (6) CVA (7) Depressive disorder, not elsewhere classified (8) Diabetes (9) RIOS (generalized anxiety disorder) (10) Heart disease (11) Hip fracture (12) History of - tubal ligation (13) Hypertension (14) Kidney stone (15) Major depressive disorder, recurrent episode, unspecified (16) stomach problems (17) Stroke (18) Thumb laceration (19) Unresponsive episode (20) Unspecified dementia without behavioral disturbance (21) UTI (urinary tract infection) (22) Weakness Surgical Problems: (1) H/O: hysterectomy Family History Diabetes mellitus FH: heart disease Hypertension Social History Smoking Status: Never Smoker Alcohol Use: none Drug Use: none Marital Status: Housing Status: lives with family Occupation Status: retired Current/Historical Medications Scheduled Aspirin (Aspirin Ec), 81 MG PO DAILY Atorvastatin (Lipitor), 10 MG PO HS Cholecalciferol (Vitamin D3), 2,000 MG PO DAILY Ciprofloxacin Tab (Cipro), 250 MG PO BID Diclofenac Sodium (Topical) (Voltaren 1% Top Gel), 1 APPLN TOP BID Docusate Sodium (Colace), 100 MG PO BID Lactobacillus Acidophilus (Lactinex), 1 TAB PO TIDM Lidocaine (Lidocaine), 1 PATCH TOP ONAMOFFPM Lorazepam (Ativan), 0.5 MG PO AMPM Metoprolol Tartrate (Lopressor) (Lopressor), 12.5 MG PO BID Risperidone (Risperidone), 0.5 MG PO BID Rivastigmine Tartrate (Exelon), 1.5 MG PO BID Senna (Senokot), 8.6 MG PO DAILY Trazodone Hcl (Trazodone), 50 MG PO HS Scheduled PRN Lorazepam (Ativan), 0.5 MG PO UD PRN for Anxiety Polyethylene Glycol 3350 (Miralax), 17 GM PO DAILY PRN for Constipation Allergies Coded Allergies: Enalapril (Verified Allergy, Unknown, Unknown, 06/20/17) Escitalopram (Verified Adverse Reaction, Unknown, Hallucinations, 06/20/17) Physical Exam Vital Signs Date Time Temp Pulse Resp B/P (MAP) Pulse Ox O2 Delivery O2 Flow Rate FiO2 06/20/17 16:44 80 20 123/62 95 06/20/17 14:14 87 18 123/70 97 Room Air 06/20/17 14:14 97 Room Air 06/20/17 12:56 72 20 205/116 96 06/20/17 10:46 63 06/20/17 10:26 36.3 58 18 109/59 94 Room Air Physical Exam GENERAL: Awake, alert,chronically ill-appearing, in no acute distress, demented , drowsy but arousable to voice. HENT: Dry cracked mucous membranes. Normocephalic, atraumatic. Oropharynx unremarkable. EYES: Normal conjunctiva. Sclera non-icteric. NECK: Supple. No nuchal rigidity. FROM. No JVD. RESPIRATORY: Diminishes breath sounds at bases otherwise clear. CARDIAC: Regular rate, normal rhythm. Extremities warm and well perfused. Pulses equal. ABDOMEN: Soft, non-distended. No tenderness to palpation. No rebound or guarding. No masses. RECTAL: Deferred. MUSCULOSKELETAL: Chest examination reveals no tenderness. The back is symmetrical on inspection without obvious abnormality. There is no CVA tenderness to palpation. No joint edema. LOWER EXTREMITIES: Moving all extremities equally. Calves are equal size bilaterally and non-tender. No edema. No discoloration. NEURO: Normal sensorium. No sensory or motor deficits noted. SKIN: No rash or jaundice noted. Medical Decision & Procedures ER Provider Diagnostic Interpretation: Radiology results as stated below per my review and radiologist interpretation: CHEST ONE VIEW PORTABLE CLINICAL HISTORY: 81 years-old Female presenting with CHEST PAIN. TECHNIQUE: Portable upright AP view of the chest was obtained. COMPARISON: 04/16/2017. FINDINGS: Median sternotomy wires, prosthetic aortic valve, and mediastinal surgical clips unchanged. Atherosclerosis of the aortic arch. Cardiac silhouette mildly enlarged, unchanged. Mitral annular calcification may also be present. Lungs and pleural spaces clear. Osseous structures normal. Upper abdomen normal. IMPRESSION: 1. No acute cardiopulmonary disease. Electronically signed by: Herbert Farias M.D. 06/20/2017 11:15 AM Dictated Date/Time: 06/20/2017 11:14 AM HEAD WITHOUT CONTRAST (CT) CLINICAL HISTORY: 81 years-old Female presenting with AMS, recent UTI, cough, noncommunicative. TECHNIQUE: Multidetector CT imaging of the head was performed without the use of intravenous contrast. IV contrast: None. A dose lowering technique was used consistent with the principles of ALARA (as low as reasonably achievable). COMPARISON: 04/16/2017. CT DOSE (mGy.cm): The estimated cumulative dose is 921.40 mGy.cm. 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 Proportional ventricular and sulcal prominence, likely age-related parenchymal volume loss. Periventricular and subcortical white matter hypoattenuation, nonspecific but likely indicative of chronic small vessel ischemic change. Hypodensity in the posterior right temporal lobe cystic with encephalomalacia and gliosis from prior infarct. A more limited infarct may be present in the posterior left temporal lobe densities series 4 image 13). Old lacunar infarcts in the left thalamus and bilateral basal ganglia. No mass effect or midline shift. No hemorrhage or acute territorial infarct. No extra-axial fluid collection. Mucosal thickening in the left maxillary sinus. Calvarium intact. IMPRESSION: 1. Stable chronic findings of small vessel ischemic change, although can or infarcts in the bilateral basal ganglia and left thalamus, and chronic infarct in the posterior right temporal lobes, right greater than left. 2. No acute intracranial abnormality. Electronically signed by: Herbert Farias M.D. 06/20/2017 12:10 PM Dictated Date/Time: 06/20/2017 12:06 PM Laboratory Results Test 06/20/17 11:10 06/20/17 11:30 Urine Color YELLOW Urine Appearance CLEAR (CLEAR) Urine pH 5.5 (4.5-7.5) Urine Specific [place] 1.015 (1.000-1.030) Urine Protein NEG (NEG) Urine Glucose (UA) NEG (NEG) Urine Ketones NEG (NEG) Urine Occult Blood NEG (NEG) Urine Nitrite NEG (NEG) Urine Bilirubin NEG (NEG) Urine Urobilinogen NEG (NEG) Urine Leukocyte Esterase MODERATE (NEG) Urine WBC (Auto) >30 /hpf (0-5) Urine RBC (Auto) 0-4 /hpf (0-4) Urine Hyaline Casts (Auto) 0 /lpf (0-5) Urine Epithelial Cells (Auto) 10-20 /lpf (0-5) Urine Bacteria (Auto) NEG (NEG) Urine Sperm (Auto) Influenza Type A Antigen Neg for Influ A (NEG) Influenza Type B Antigen Neg for Influ B (NEG) Immature Granulocyte % (Auto) 0.3 % White Blood Count 8.69 K/uL (4.8-10.8) Red Blood Count 3.70 M/uL (4.2-5.4) Hemoglobin 10.6 g/dL (12.0-16.0) Hematocrit 32.6 % (37-47) Mean Corpuscular Volume 88.1 fL (80-100) Mean Corpuscular Hemoglobin 28.6 pg (25-34) Mean Corpuscular Hemoglobin Concent 32.5 g/dl (32-36) Platelet Count 142 K/uL (130-400) Mean Platelet Volume 9.8 fL (7.4-10.4) Neutrophils (%) (Auto) 70.6 % Lymphocytes (%) (Auto) 16.5 % Monocytes (%) (Auto) 11.6 % Eosinophils (%) (Auto) 0.8 % Basophils (%) (Auto) 0.2 % Neutrophils # (Auto) 6.13 K/uL (1.4-6.5) Lymphocytes # (Auto) 1.43 K/uL (1.2-3.4) Monocytes # (Auto) 1.01 K/uL (0.11-0.59) Eosinophils # (Auto) 0.07 K/uL (0-0.5) Basophils # (Auto) 0.02 K/uL (0-0.2) Immature Granulocyte # (Auto) 0.03 K/uL (0.00-0.02) Total Bilirubin 0.5 mg/dl (0.2-1) Direct Bilirubin 0.2 mg/dl (0-0.2) Aspartate Amino Transf (AST/SGOT) 14 U/L (15-37) Alanine Aminotransferase (ALT/SGPT) 13 U/L (12-78) Alkaline Phosphatase 75 U/L (45-117) Troponin I < 0.015 ng/ml (0-0.045) Pro-B-Type Natriuretic Peptide 620 pg/ml (0-1800) Total Protein 6.2 gm/dl (6.4-8.2) Albumin 2.6 gm/dl (3.4-5.0) Lipase 113 U/L (73-393) Date/Time Source Procedure Growth Status 06/20/17 11:10 Urine,Catheterized Urine Culture - Final Lactobacillus Species Complete Laboratory results reviewed by me Medications Administered Medications (Trade) Dose Ordered Sig/Shaggy Route Start Time Stop Time Status Last Admin Dose Admin Sodium Chloride 1,000 ml @ 999 mls/hr Q1H1M STAT IV 06/20/17 11:06 06/20/17 12:06 DC 06/20/17 11:50 999 MLS/HR Lactobacillus Acidophilus (Floranex Tab) 1 tab TIDM PO 06/20/17 18:00 07/20/17 17:59 06/22/17 13:50 1 TAB Sodium Chloride 1,000 ml @ 100 mls/hr Q10H IV 06/20/17 18:30 06/21/17 04:29 DC 06/20/17 22:52 100 MLS/HR ED Course 1051: The patient was evaluated in room B4. A complete history and physical exam was performed. 1106: Ordered Sodium Chloride 1000ml @ 999mls/hr IV. Medical Decision I reviewed the patient's past medical history, medications, and the nursing notes as described above. Differential diagnosis: Etiologies such as metabolic, infection, hypo/ hyperglycemia, electrolyte abnormalities, cardiac sources, intracerebral event, toxicologic, neurologic, as well as others were entertained. The patient is a 89-year-old woman who presents to emergency department from home for worsening generalized weakness in the setting of having been in acute rehabilitation at [facility] and after exahausted insurance benefits was transfered to [facility] for 2 weeks but per son ran out again of insurance benefits and so was discharged home despite her decline in function over the past week per hpi. Per son, UA was done with ? of UTI and was given RX for Cipro which she began yesterday. On arrival the patient is fatigued appearing but in no acute distress, afebrile stable vital signs. On exam the patient has dry cracked mucous membranes. Otherwise patient is alert to voice moving all extremities. Labs unremarkable including WBC within normal limits. UA dirty with epithelial cells. Chest x-ray negative. CT head unremarkable. Patient did appear more alert after IV fluid hydration. Reassuring findings with the patient's son however the patient is concerned about her decline over the past week and their inability to care for the patient at home at this time. Attempt was made to transfer the patient directly to rehabilitation however not possible at this time. Thus will admit the patient for further supportive care and PT eval with likely placement. Case was d/w Dr. Connelly, [facility] hospitalist, who will admit the patient for further management. Medication Reconcilliation Current Medication List: was personally reviewed by me Impression Primary Impression: Generalized weakness Additional Impression: Dehydration Scribe Attestation The scribe's documentation has been prepared under my direction and personally reviewed by me in its entirety. I confirm that the note above accurately reflects all work, treatment, procedures, and medical decision making performed by me. Departure Information Dispostion Home / Self-Care Referrals Blaise Guardado (PCP) Forms HOME CARE DOCUMENTATION FORM, IMPORTANT VISIT INFORMATION, WORK / SCHOOL INSTRUCTIONS Patient Instructions My [facility] Problem Qualifiers
--- NOTE | 2017-06-20 11:16 | DIAGNOSTIC IMAGING REPORT ---
CHEST ONE VIEW PORTABLE CLINICAL HISTORY: 81 years-old Female presenting with CHEST PAIN. TECHNIQUE: Portable upright AP view of the chest was obtained. COMPARISON: 04/16/2017. FINDINGS: Median sternotomy wires, prosthetic aortic valve, and mediastinal surgical clips unchanged. Atherosclerosis of the aortic arch. Cardiac silhouette mildly enlarged, unchanged. Mitral annular calcification may also be present. Lungs and pleural spaces clear. Osseous structures normal. Upper abdomen normal. IMPRESSION: 1. No acute cardiopulmonary disease. Electronically signed by: Herbert Farias M.D. 06/20/2017 11:15 AM Dictated Date/Time: 06/20/2017 11:14 AM
[2017-06-20 11:41] LABS: INFLUENZA B ANTIGEN Neg for Influ B (NEG)
[2017-06-20 11:42] LABS: BASO % 0.2 %; BASO ABS # 0.02 K/uL (0-0.2); EOS % 0.8 %; EOS ABS # 0.07 K/uL (0-0.5); HEMATOCRIT 32.6 % (37-47); HEMOGLOBIN 10.6 g/dL (12.0-16.0); IG# 0.03 K/uL (0.00-0.02); LYMPH % 16.5 %; LYMPH ABS # 1.43 K/uL (1.2-3.4); MEAN CELL VOLUME 88.1 fL (80-100); MEAN CORPUSCULAR HEMOGLOBIN 28.6 pg (25-34); MEAN CORPUSCULAR HGB CONC 32.5 g/dl (32-36); MEAN PLATELET VOLUME 9.8 fL (7.4-10.4); MONO % 11.6 %; MONO ABS # 1.01 K/uL (0.11-0.59); NEUT % 70.6 %; NEUT ABS # 6.13 K/uL (1.4-6.5); PLATELET COUNT 142 K/uL (130-400); RED CELL DISTRIBUTION WIDTH CV 15.1 % (11.5-14.5); RED CELL DISTRIBUTION WIDTH SD 48.4 fL (36.4-46.3); WHITE BLOOD COUNT 8.69 K/uL (4.8-10.8)
[2017-06-20 12:00] LABS: ALBUMIN 2.6 gm/dl (3.4-5.0); ALT/SGPT 13 U/L (12-78); BLOOD UREA NITROGEN 19 mg/dl (7-18); CALCIUM 8.6 mg/dl (8.5-10.1); CARBON DIOXIDE 29 mmol/L (21-32); CREATININE 0.91 mg/dl (0.60-1.20); GLUCOSE 135 mg/dl (70-99); LIPASE 113 U/L (73-393); POTASSIUM 3.8 mmol/L (3.5-5.1); SODIUM 138 mmol/L (136-145)
[2017-06-20 12:06] LABS: ALKALINE PHOSPHATASE 75 U/L (45-117); AST/SGOT 14 U/L (15-37); TOTAL PROTEIN 6.2 gm/dl (6.4-8.2)
[2017-06-20] MEDS ORDERED: TRAZ50TA35 PO (12:11)
[2017-06-20] MEDS ORDERED: ASPI81TA28 PO (12:11)
[2017-06-20] MEDS ORDERED: ATOR10TA82 PO (12:11)
[2017-06-20] MEDS ORDERED: CIPR1TAB11 PO (12:11)
[2017-06-20] MEDS ORDERED: LDDP5 TOP (12:11)
[2017-06-20] MEDS ORDERED: DOCU-94 PO (12:11)
[2017-06-20] MEDS ORDERED: SENN-61 PO (12:11)
[2017-06-20] MEDS ORDERED: RISP0.5T4 PO (12:11)
[2017-06-20] MEDS ORDERED: RIVA1.5C6 PO (12:11)
[2017-06-20] MEDS ORDERED: LORA-741 PO ×2 (12:11)
[2017-06-20] MEDS ORDERED: POLY335019 PO (12:11)
[2017-06-20] MEDS ORDERED: METO25TA56 PO (12:11)
[2017-06-20] MEDS ORDERED: CHOL20007 PO (12:11)
[2017-06-20] MEDS ORDERED: LCTX PO (12:11)
[2017-06-20] MEDS ORDERED: DICL1GEL12 TOP (12:11)
--- NOTE | 2017-06-20 12:12 | DIAGNOSTIC IMAGING REPORT ---
HEAD WITHOUT CONTRAST (CT) CLINICAL HISTORY: 81 years-old Female presenting with AMS, recent UTI, cough, noncommunicative. TECHNIQUE: Multidetector CT imaging of the head was performed without the use of intravenous contrast. IV contrast: None. A dose lowering technique was used consistent with the principles of ALARA (as low as reasonably achievable). COMPARISON: 04/16/2017. CT DOSE (mGy.cm): The estimated cumulative dose is 921.40 mGy.cm. 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 Proportional ventricular and sulcal prominence, likely age-related parenchymal volume loss. Periventricular and subcortical white matter hypoattenuation, nonspecific but likely indicative of chronic small vessel ischemic change. Hypodensity in the posterior right temporal lobe cystic with encephalomalacia and gliosis from prior infarct. A more limited infarct may be present in the posterior left temporal lobe densities series 4 image 13). Old lacunar infarcts in the left thalamus and bilateral basal ganglia. No mass effect or midline shift. No hemorrhage or acute territorial infarct. No extra-axial fluid collection. Mucosal thickening in the left maxillary sinus. Calvarium intact. IMPRESSION: 1. Stable chronic findings of small vessel ischemic change, although can or infarcts in the bilateral basal ganglia and left thalamus, and chronic infarct in the posterior right temporal lobes, right greater than left. 2. No acute intracranial abnormality. Electronically signed by: Herbert Farias M.D. 06/20/2017 12:10 PM Dictated Date/Time: 06/20/2017 12:06 PM
[2017-06-20] MEDS ORDERED: POLYETHYLENE (MIRALAX) 17 GM PACK PO PRN (17:45)
[2017-06-20] MEDS ORDERED: LORAZEPAM 2 MG/ML 1 ML VIAL IV PRN ×2 (18:15)
[2017-06-20] MEDS ORDERED: HALOPERIDOL LACTATE 5 MG/ML 1 ML VIAL IM PRN (18:15)
[2017-06-20] MEDS ORDERED: PIPERACILL/TAZOBAC CONSULT ACTIVE PRN (18:15)
--- NOTE | 2017-06-20 18:19 | History and Physical ---
History & Physical Date & Time of Service: Jun 20, 2017 at 18:12 Chief Complaint: Uti,Pneumonia Primary Care Physician: Blaise Guardado History of Present Illness Source: patient, family Patient brought in by her family member because she is unable to walk at home is as become increasingly confused. Her son claims she was released from the [facility] on June 19 because her insurance ran out he claims that prior to her being released a urine and infection was diagnosed but no antibiotic were given. Patient's son also claims that she is doing quite well earlier in the week but then declined. The son is disgruntled as he feels that he is being given the run around regarding getting her home care and he is ultimate goal is to take her home her son himself does seem to have some medical limitations perhaps suffering from a previous stroke. The patient herself is restless moving about in bed trying to climb out of bed weeks and low tones can participate in purposeful movements to voice command. The son says she's had strong foul-smelling urine Past Medical/Surgical History Medical Problems: (1) Anxiety Status: Chronic (2) Aortic stenosis Status: Chronic (3) blood clots Status: Chronic (4) CVA Status: Resolved (5) Diabetes Status: Chronic (6) Heart disease Status: Chronic (7) History of - tubal ligation Status: Resolved (8) Hypertension Status: Chronic (9) Kidney stone Status: Chronic (10) stomach problems Status: Chronic (11) Stroke Status: Chronic (12) Thumb laceration Status: Resolved Surgical Problems: (1) H/O: hysterectomy Status: Resolved Family History Diabetes mellitus FH: heart disease Hypertension Social History Smoking Status: Never Smoker Drug Use: none Marital Status: Housing status: lives with family Occupational Status: retired Immunizations History of Influenza Vaccine: Yes Influenza Vaccine Date: Apr 01, 2011 History of Tetanus Vaccine?: utd Tetanus Immunization Date: Mar 30, 2009 History of Pneumococcal: Yes Pneumococcal Date: Apr 02, 2011 History of Hepatitis B Vaccine: Unknown Multi-Drug Resistant Organisms History of MDRO: No Allergies Coded Allergies: Enalapril (Verified Allergy, Unknown, Unknown, 06/20/17) Escitalopram (Verified Adverse Reaction, Unknown, Hallucinations, 06/20/17) Home Medications Scheduled Aspirin (Aspirin Ec), 81 MG PO DAILY Atorvastatin (Lipitor), 10 MG PO HS Cholecalciferol (Vitamin D3), 2,000 MG PO DAILY Ciprofloxacin Tab (Cipro), 250 MG PO BID Diclofenac Sodium (Topical) (Voltaren 1% Top Gel), 1 APPLN TOP BID Docusate Sodium (Colace), 100 MG PO BID Lactobacillus Acidophilus (Lactinex), 1 TAB PO TIDM Lidocaine (Lidocaine), 1 PATCH TOP ONAMOFFPM Lorazepam (Ativan), 0.5 MG PO AMPM Metoprolol Tartrate (Lopressor) (Lopressor), 12.5 MG PO BID Risperidone (Risperidone), 0.5 MG PO BID Rivastigmine Tartrate (Exelon), 1.5 MG PO BID Senna (Senokot), 8.6 MG PO DAILY Trazodone Hcl (Trazodone), 50 MG PO HS Scheduled PRN Lorazepam (Ativan), 0.5 MG PO UD PRN for Anxiety Polyethylene Glycol 3350 (Miralax), 17 GM PO DAILY PRN for Constipation Review of Systems Review of systems cannot be obtained due to the patient's delirious state her son at the bedside claims her having no fevers at home becoming increasingly restless week requiring 2 person assist to ambulate and confused and agitated Physical Exam Vital Signs Date Time Temp Pulse Resp B/P (MAP) Pulse Ox O2 Delivery O2 Flow Rate FiO2 06/20/17 16:44 80 20 123/62 95 06/20/17 14:14 87 18 123/70 97 Room Air 06/20/17 14:14 97 Room Air 06/20/17 12:56 72 20 205/116 96 06/20/17 10:46 63 06/20/17 10:26 36.3 58 18 109/59 94 Room Air General Appearance: WD/WN, + moderate distress Head: normocephalic, atraumatic Eyes: normal inspection, PERRL, EOMI, sclerae normal ENT: hearing grossly normal, pharynx normal Neck: supple, thyroid normal Respiratory/Chest: chest non-tender, lungs clear, normal breath sounds Cardiovascular: regular rate, rhythm, + systolic murmur Abdomen/GI: normal bowel sounds, non tender, soft Back: no CVA tenderness, no muscle spasm Extremities/Musculoskelatal: normal range of motion (trace), + pedal edema Neurologic/Psych: alert, + depressed affect, + disoriented, + pertinent finding (appears agitated at times) Skin: normal color, warm/dry Diagnostics Laboratory Results Results Past 24 Hours Test 06/20/17 11:10 06/20/17 11:30 Range/Units Urine Color YELLOW Urine Appearance CLEAR CLEAR Urine pH 5.5 4.5-7.5 Urine Specific [place] 1.015 1.000-1.030 Urine Protein NEG NEG Urine Glucose (UA) NEG NEG Urine Ketones NEG NEG Urine Occult Blood NEG NEG Urine Nitrite NEG NEG Urine Bilirubin NEG NEG Urine Urobilinogen NEG NEG Urine Leukocyte Esterase MODERATE NEG Urine WBC (Auto) >30 0-5 /hpf Urine RBC (Auto) 0-4 0-4 /hpf Urine Hyaline Casts (Auto) 0 0-5 /lpf Urine Epithelial Cells (Auto) 10-20 0-5 /lpf Urine Bacteria (Auto) NEG NEG Urine Sperm (Auto) Influenza Type A Antigen Neg for Influ A NEG Influenza Type B Antigen Neg for Influ B NEG White Blood Count 8.69 4.8-10.8 K/uL Red Blood Count 3.70 4.2-5.4 M/uL Hemoglobin 10.6 12.0-16.0 g/dL Hematocrit 32.6 37-47 % Mean Corpuscular Volume 88.1 80-100 fL Mean Corpuscular Hemoglobin 28.6 25-34 pg Mean Corpuscular Hemoglobin Concent 32.5 32-36 g/dl Platelet Count 142 130-400 K/uL Mean Platelet Volume 9.8 7.4-10.4 fL Neutrophils (%) (Auto) 70.6 % Lymphocytes (%) (Auto) 16.5 % Monocytes (%) (Auto) 11.6 % Eosinophils (%) (Auto) 0.8 % Basophils (%) (Auto) 0.2 % Neutrophils # (Auto) 6.13 1.4-6.5 K/uL Lymphocytes # (Auto) 1.43 1.2-3.4 K/uL Monocytes # (Auto) 1.01 0.11-0.59 K/uL Eosinophils # (Auto) 0.07 0-0.5 K/uL Basophils # (Auto) 0.02 0-0.2 K/uL RDW Standard Deviation 48.4 36.4-46.3 fL RDW Coefficient of Variation 15.1 11.5-14.5 % Immature Granulocyte % (Auto) 0.3 % Immature Granulocyte # (Auto) 0.03 0.00-0.02 K/uL Sodium Level 138 136-145 mmol/L Potassium Level 3.8 3.5-5.1 mmol/L Chloride Level 103 98-107 mmol/L Carbon Dioxide Level 29 21-32 mmol/L Anion Gap 6.0 3-11 mmol/L Blood Urea Nitrogen 19 7-18 mg/dl Creatinine 0.91 0.60-1.20 mg/dl Est Creatinine Clear Calc Drug Dose 50.4 ml/min Estimated GFR () 69.1 Estimated GFR (Non- 59.6 BUN/Creatinine Ratio 20.4 10-20 Random Glucose 135 70-99 mg/dl Calcium Level 8.6 8.5-10.1 mg/dl Total Bilirubin 0.5 0.2-1 mg/dl Direct Bilirubin 0.2 0-0.2 mg/dl Aspartate Amino Transf (AST/SGOT) 14 15-37 U/L Alanine Aminotransferase (ALT/SGPT) 13 12-78 U/L Alkaline Phosphatase 75 45-117 U/L Troponin I < 0.015 0-0.045 ng/ml Pro-B-Type Natriuretic Peptide 620 0-1800 pg/ml Total Protein 6.2 6.4-8.2 gm/dl Albumin 2.6 3.4-5.0 gm/dl Lipase 113 73-393 U/L Microbiology Results 06/20/17 Urine Culture, Received Pending Diagnostic Radiology CT scan of the head showing no acute changes CXR normal (show no defined infiltrates) other (is normal sinus rhythm) Impression Assessment and Plan 81-year-old female with acute metabolic encephalopathy from urinary tract infection present on admission Probable urinary tract infection present on admission the patient will have blood and urine cultures and be started on Zosyn therapy For her baseline anxiety and agitation the patient previously was on Risperdal and trazodone these will be continued lidocaine and be given when necessary once encephalopathy clears up we may consider a psychiatric consult For patient's cardiovascular history and cerebrovascular disease aspirin 81 Lipitor 10 metoprolol 12.5 will be continued For her baseline agitated state she is on Exelon in addition to the above meds we will continue the Exelon For constipation she'll maintain herself on senna and Colace Although there is a history of diabetes she is on any formal diabetic medications perhaps her antipsychotics may be encouraging this will follow her glucose on a chemistry panel and check an A1c in the morning DVT prevention will be heparin therapy subcutaneous Assistance of case management we greatly appreciated
[2017-06-20] MEDS ORDERED: SODIUM CHLORIDE 0.9% 1000ML 1,000 ML IV SCH (18:30)
[2017-06-20] MEDS ORDERED: QUETIAPINE FUMARATE 25 MG TAB PO SCH (21:00)
[2017-06-20] MEDS ORDERED: IV FLUIDS COMPLETED PRN (21:00)
[2017-06-20] MEDS ORDERED: LORAZEPAM 0.5 MG TAB PO SCH (21:00)
[2017-06-20] MEDS ORDERED: PIPERACILL/TAZOBAC IV 3.375 GM in DEXTROSE 5% 100ML IV STA (21:26)
[2017-06-20] MEDS ORDERED: LORAZEPAM INJ 1 MG in SYRINGE 0.5 ML IV PRN (21:45)
[2017-06-20 22:00] VITALS: BP 155/78; PULSE 91; TEMP 37.1; O2SAT 95; Ht 167.6 cm; Wt 75.6 kg
[2017-06-20] MEDS: DOCUSATE SODIUM 100 MG CAP PO SCH (22:53)
[2017-06-20] MEDS: METOPROLOL TARTRATE 25 MG TAB PO SCH (22:54)
[2017-06-20] MEDS: ATORVASTATIN 10 MG TAB PO SCH (22:54)
[2017-06-20] MEDS: RISPERIDONE 0.5 MG TAB PO SCH (22:54)
[2017-06-20] MEDS: LACTOBACILLUS ACIDOPHILUS (FLORANEX) TAB PO SCH (22:55)
[2017-06-20] MEDS: TRAZODONE HCL 50 MG TAB PO SCH (22:55)
[2017-06-20] MEDS: RIVASTIGMINE TARTRATE (EXELON) 1.5 MG CAP PO SCH (22:56)
[2017-06-20] MEDS: DICLOFENAC SOD 1% GEL 100 GM TUBE EXT SCH (22:57)
[2017-06-20] MEDS: HEPARIN SOD 5000 UNIT/0.5 ML CARP SQ SCH (23:00)
[2017-06-21 03:32] VITALS: BP 127/54; PULSE 64; TEMP 36.5; O2SAT 98
[2017-06-21] MEDS: PIPERACILL/TAZOBAC IV 3.375 GM in DEXTROSE 5% 100ML 100 ML IV SCH ×3 (04:30→20:32)
[2017-06-21 06:29] LABS: HEMATOCRIT 31.7 % (37-47); HEMOGLOBIN 10.4 g/dL (12.0-16.0); MEAN CELL VOLUME 87.3 fL (80-100); MEAN CORPUSCULAR HEMOGLOBIN 28.7 pg (25-34); MEAN CORPUSCULAR HGB CONC 32.8 g/dl (32-36); MEAN PLATELET VOLUME 9.8 fL (7.4-10.4); PLATELET COUNT 147 K/uL (130-400); WHITE BLOOD COUNT 6.47 K/uL (4.8-10.8)
[2017-06-21 07:03] LABS: CALCIUM 8.2 mg/dl (8.5-10.1); CREATININE 0.75 mg/dl (0.60-1.20); POTASSIUM 3.5 mmol/L (3.5-5.1)
[2017-06-21 08:13] VITALS: BP 126/52; PULSE 55; TEMP 36.4; O2SAT 98
[2017-06-21] MEDS: HEPARIN SOD 5000 UNIT/0.5 ML CARP SQ SCH ×2 (08:42→20:31)
[2017-06-21] MEDS: LACTOBACILLUS ACIDOPHILUS (FLORANEX) TAB PO SCH ×3 (08:43→19:16)
[2017-06-21] MEDS: DOCUSATE SODIUM 100 MG CAP PO SCH ×2 (08:44→20:29)
[2017-06-21] MEDS: DICLOFENAC SOD 1% GEL 100 GM TUBE EXT SCH ×2 (08:44→20:33)
[2017-06-21] MEDS: ASPIRIN 81 MG ECTAB PO SCH (08:44)
[2017-06-21] MEDS: RIVASTIGMINE TARTRATE (EXELON) 1.5 MG CAP PO SCH ×2 (08:45→20:30)
[2017-06-21] MEDS: METOPROLOL TARTRATE 25 MG TAB PO SCH ×2 (08:46→20:32)
[2017-06-21] MEDS: SENNA 8.6 MG TAB PO SCH (08:46)
[2017-06-21] MEDS: RISPERIDONE 0.5 MG TAB PO SCH ×2 (08:46→20:29)
[2017-06-21] MEDS: LIDODERM (LIDOCAINE) PATCH 5% TD SCH (08:47)
[2017-06-21 09:15] LABS: HEMOGLOBIN A1C 5.9 % (4.5-5.6)
[2017-06-21 11:54] VITALS: BP 149/68; PULSE 66; TEMP 36.6; O2SAT 93
[2017-06-21] MEDS ORDERED: SODIUM CHLOR 0.45% + 20MEQ KCL 1,000 ML IV SCH (12:00)
--- NOTE | 2017-06-21 15:43 | Hospitalist Progress Note ---
Hospitalist Progress Note Date of Service Jun 21, 2017. (Hali Estrada ., ALYSSA) Subjective Pt evaluation today including: conversation w/ patient, physical exam, chart review, lab review, review of inpatient medication list Voiding: incontinence Ms. Easley is disoriented and can only give limited ROS indicating only that she is not in pain. (Hali Estrada ., ALYSSA) Medications Medications Administered Medications (Trade) Dose Ordered Sig/Shaggy Route Start Time Stop Time Status Last Admin Dose Admin Sodium Chloride 1,000 ml @ 999 mls/hr Q1H1M STAT IV 06/20/17 11:06 06/20/17 12:06 DC 06/20/17 11:50 999 MLS/HR Aspirin (Ecotrin Tab) 81 mg DAILY PO 06/21/17 09:00 07/21/17 08:59 06/21/17 08:44 81 MG Atorvastatin Calcium (Lipitor Tab) 10 mg HS PO 06/20/17 21:00 07/20/17 20:59 06/20/17 22:54 10 MG Diclofenac Sodium (Voltaren 1% Top Gel) 1 appln BID EXT 06/20/17 21:00 07/20/17 20:59 06/21/17 08:44 1 APPLN Docusate Sodium (coLACE CAP) 100 mg BID PO 06/20/17 21:00 07/20/17 20:59 06/21/17 08:44 100 MG Lactobacillus Acidophilus (Floranex Tab) 1 tab TIDM PO 06/20/17 18:00 07/20/17 17:59 06/21/17 11:23 1 TAB Lidocaine (Lidoderm Patch 5%) 1 patch DAILY TD 06/21/17 09:00 07/21/17 08:59 06/21/17 08:47 1 PATCH Metoprolol Tartrate (Lopressor Tab) 12.5 mg BID PO 06/20/17 21:00 07/20/17 20:59 06/21/17 08:46 12.5 MG Risperidone (Risperdal Tab) 0.5 mg BID PO 06/20/17 21:00 07/20/17 20:59 06/21/17 08:46 0.5 MG Senna (Senokot Tab) 8.6 mg DAILY PO 06/21/17 09:00 07/21/17 08:59 06/21/17 08:46 8.6 MG Trazodone HCl (Desyrel Tab) 50 mg HS PO 06/20/17 21:00 07/20/17 20:59 06/20/17 22:55 50 MG Rivastigmine Tartrate (Exelon Cap) 1.5 mg BID PO 06/20/17 21:00 07/20/17 20:59 06/21/17 08:45 1.5 MG Miscellaneous (Remove Lidoderm Patch) 1 ea DAILY@21 N/A 06/20/17 21:00 07/20/17 20:59 06/20/17 21:00 1 EA Piperacillin Sod/ Tazobactam Sod 3.375 gm/Dextrose 115 ml @ 28.75 mls/ hr Q8H IV 06/21/17 04:00 06/26/17 03:59 06/21/17 11:23 28.75 MLS/HR Heparin Sodium (Porcine) (Heparin Sq 5000 Unit/0.5ml) 5,000 unit Q12H SQ 06/20/17 22:00 07/20/17 21:59 06/21/17 08:42 5,000 UNIT Sodium Chloride 1,000 ml @ 100 mls/hr Q10H IV 06/20/17 18:30 06/21/17 04:29 DC 06/20/17 22:52 100 MLS/HR Piperacillin Sod/ Tazobactam Sod 3.375 gm/Dextrose 115 ml @ 230 mls/hr NOW STAT IV 06/20/17 21:26 06/20/17 21:55 DC 06/20/17 22:52 230 MLS/HR Potassium Chloride/Sodium Chloride 1,000 ml @ 75 mls/hr [id number] IV 06/21/17 12:00 06/22/17 01:19 06/21/17 13:34 75 MLS/HR (Hali Estrada, ALYSSA) Objective Vital Signs Date Time Temp Pulse Resp B/P (MAP) Pulse Ox O2 Delivery O2 Flow Rate FiO2 06/21/17 12:00 Room Air 06/21/17 11:54 36.6 66 16 149/68 (95) 93 Room Air 06/21/17 08:13 36.4 55 16 126/52 (76) 98 Room Air 06/21/17 08:00 Room Air 06/21/17 04:00 Room Air 06/21/17 03:32 36.5 64 18 127/54 (78) 98 Room Air 06/20/17 23:59 Room Air 06/20/17 22:00 37.1 91 20 155/78 95 Room Air 06/20/17 21:32 90 18 107/56 97 06/20/17 20:58 90 18 107/56 97 Room Air 06/20/17 16:44 80 20 123/62 95 (aHli Estrada CRNP) Physical Exam Notes: General: no distress Eyes: normal inspection, PERLL Respiratory: chest non tender, clear to auscultation, normal breath sounds, no respiratory distress, no accessory muscle use Cardiac: regular rate and rhythm, no rub or gallop, systolic murmur, no edema, no jvd GI/: active bowel sounds, no abd pain or tenderness, soft, non distended Extremities: normal range of motion, normal strength, non tender Neuro/Psych: alert and oriented x 3, normal mood and affect Skin: normal color, dry (Hali Estrada CRNP) Laboratory Results Last 24 Hours Test 06/21/17 05:53 White Blood Count 6.47 K/uL Red Blood Count 3.63 M/uL Hemoglobin 10.4 g/dL Hematocrit 31.7 % Mean Corpuscular Volume 87.3 fL Mean Corpuscular Hemoglobin 28.7 pg Mean Corpuscular Hemoglobin Concent 32.8 g/dl RDW Standard Deviation 48.0 fL RDW Coefficient of Variation 15.0 % Platelet Count 147 K/uL Mean Platelet Volume 9.8 fL Sodium Level 141 mmol/L Potassium Level 3.5 mmol/L Chloride Level 106 mmol/L Carbon Dioxide Level 27 mmol/L Anion Gap 7.0 mmol/L Blood Urea Nitrogen 17 mg/dl Creatinine 0.75 mg/dl Est Creatinine Clear Calc Drug Dose 62.1 ml/min Estimated GFR () 87.3 Estimated GFR (Non- 75.3 BUN/Creatinine Ratio 22.8 Random Glucose 99 mg/dl Estimated Average Glucose 123 mg/dl Hemoglobin A1c 5.9 % Calcium Level 8.2 mg/dl (Hali Estrada CRNP) Assessment and Plan 81-year-old female with acute metabolic encephalopathy from urinary tract infection present on admission UTI - culture reincubating for pinpoint growth - continue Zosyn until culture back, may be able to cut abx altogether Anxiety, agitation, encephalopathy - per daughter whom she lives with patient is at her baseline mentation - continue Exelon, Risperdal and trazodone - prn Haldol CAD - continue ASA, lipitor and metoprolol Constipation - continue Colace and Senna Hyperglycemia - A1c 5.9 - may be exacerbated by antipsychotics - follow morning bsgs for now DVT prevention subq heparin Full code Assistance of case management we greatly appreciated Transfer to med/surg (Hali Estrada ., ALYSSA) i personally examined pt and verified all gaines points w Tyra Sean SHAH appearing better dt notes that she's appearing to look more like herself, walked well she feels that she'll do ok at home no other new problems vitals noted nad breathing unlabored encephalopathy - appearing metabolic due to dehydration - improving doubt UTI - hold antibiotics and follow son asking for psych consult - will have to d/w him (Joey Ferraro D.O.)
[2017-06-21 15:45] VITALS: BP 116/65; PULSE 85; TEMP 36.6; O2SAT 96
[2017-06-21 18:00] VITALS: BP 125/67; PULSE 83; TEMP 36.6; O2SAT 94
[2017-06-21] MEDS: ATORVASTATIN 10 MG TAB PO SCH (20:29)
[2017-06-21] MEDS: TRAZODONE HCL 50 MG TAB PO SCH (20:31)
[2017-06-22 00:10] VITALS: BP 110/70; PULSE 60; TEMP 36.5; O2SAT 98
[2017-06-22] MEDS: PIPERACILL/TAZOBAC IV 3.375 GM in DEXTROSE 5% 100ML 100 ML IV SCH (04:59)
[2017-06-22 07:58] VITALS: BP 157/68; PULSE 55; TEMP 36.7; O2SAT 99
[2017-06-22] MEDS: METOPROLOL TARTRATE 25 MG TAB PO SCH ×2 (08:16→20:44)
[2017-06-22] MEDS: SENNA 8.6 MG TAB PO SCH (08:16)
[2017-06-22] MEDS: RIVASTIGMINE TARTRATE (EXELON) 1.5 MG CAP PO SCH ×2 (08:17→20:45)
[2017-06-22] MEDS: ASPIRIN 81 MG ECTAB PO SCH (08:17)
[2017-06-22] MEDS: DICLOFENAC SOD 1% GEL 100 GM TUBE EXT SCH ×2 (08:18→20:46)
[2017-06-22] MEDS: LACTOBACILLUS ACIDOPHILUS (FLORANEX) TAB PO SCH ×3 (08:18→17:40)
[2017-06-22] MEDS: RISPERIDONE 0.5 MG TAB PO SCH ×2 (08:18→20:45)
[2017-06-22] MEDS: DOCUSATE SODIUM 100 MG CAP PO SCH ×2 (08:18→20:43)
[2017-06-22 08:30] VITALS: PULSE 65
[2017-06-22] MEDS: LIDODERM (LIDOCAINE) PATCH 5% TD SCH (08:30)
[2017-06-22] MEDS: HEPARIN SOD 5000 UNIT/0.5 ML CARP SQ SCH ×2 (08:37→20:47)
--- NOTE | 2017-06-22 14:41 | Hospitalist Progress Note ---
Hospitalist Progress Note Date of Service Jun 22, 2017. (Hali Estrada ., ALYSSA) Subjective Pt evaluation today including: conversation w/ patient, physical exam, chart review, lab review, review of inpatient medication list Voiding: incontinence Ms. Easley is unable to provide a ROS. I did have a long discussion with both daughter and son separately about therapy's recommendations for rehab. The son who is the POA wants to speak with Ms. Easley's psychiatrist before making any decisions. Will start the process of authorizing placement in the meantime. (Hali Estrada CRNP) Medications Medications Administered Medications (Trade) Dose Ordered Sig/Shaggy Route Start Time Stop Time Status Last Admin Dose Admin Sodium Chloride 1,000 ml @ 999 mls/hr Q1H1M STAT IV 06/20/17 11:06 06/20/17 12:06 DC 06/20/17 11:50 999 MLS/HR Aspirin (Ecotrin Tab) 81 mg DAILY PO 06/21/17 09:00 07/21/17 08:59 06/22/17 08:17 81 MG Atorvastatin Calcium (Lipitor Tab) 10 mg HS PO 06/20/17 21:00 07/20/17 20:59 06/21/17 20:29 10 MG Diclofenac Sodium (Voltaren 1% Top Gel) 1 appln BID EXT 06/20/17 21:00 07/20/17 20:59 06/22/17 08:18 1 APPLN Docusate Sodium (coLACE CAP) 100 mg BID PO 06/20/17 21:00 07/20/17 20:59 06/22/17 08:18 100 MG Lactobacillus Acidophilus (Floranex Tab) 1 tab TIDM PO 06/20/17 18:00 07/20/17 17:59 06/22/17 13:50 1 TAB Lidocaine (Lidoderm Patch 5%) 1 patch DAILY TD 06/21/17 09:00 07/21/17 08:59 06/21/17 08:47 1 PATCH Metoprolol Tartrate (Lopressor Tab) 12.5 mg BID PO 06/20/17 21:00 07/20/17 20:59 06/22/17 08:16 12.5 MG Risperidone (Risperdal Tab) 0.5 mg BID PO 06/20/17 21:00 07/20/17 20:59 06/22/17 08:18 0.5 MG Senna (Senokot Tab) 8.6 mg DAILY PO 06/21/17 09:00 07/21/17 08:59 06/22/17 08:16 8.6 MG Trazodone HCl (Desyrel Tab) 50 mg HS PO 06/20/17 21:00 07/20/17 20:59 06/21/17 20:31 50 MG Rivastigmine Tartrate (Exelon Cap) 1.5 mg BID PO 06/20/17 21:00 07/20/17 20:59 06/22/17 08:17 1.5 MG Miscellaneous (Remove Lidoderm Patch) 1 ea DAILY@21 N/A 06/20/17 21:00 07/20/17 20:59 06/21/17 20:32 1 EA Piperacillin Sod/ Tazobactam Sod 3.375 gm/Dextrose 115 ml @ 28.75 mls/ hr Q8H IV 06/21/17 04:00 06/22/17 08:51 DC 06/22/17 04:59 28.75 MLS/HR Heparin Sodium (Porcine) (Heparin Sq 5000 Unit/0.5ml) 5,000 unit Q12H SQ 06/20/17 22:00 07/20/17 21:59 06/22/17 08:37 5,000 UNIT Sodium Chloride 1,000 ml @ 100 mls/hr Q10H IV 06/20/17 18:30 06/21/17 04:29 DC 06/20/17 22:52 100 MLS/HR Piperacillin Sod/ Tazobactam Sod 3.375 gm/Dextrose 115 ml @ 230 mls/hr NOW STAT IV 06/20/17 21:26 06/20/17 21:55 DC 06/20/17 22:52 230 MLS/HR Potassium Chloride/Sodium Chloride 1,000 ml @ 75 mls/hr [id number] IV 06/21/17 12:00 06/22/17 01:19 DC 06/21/17 13:34 75 MLS/HR (Hali Estrada CRNP) Objective Vital Signs Date Time Temp Pulse Resp B/P (MAP) Pulse Ox O2 Delivery O2 Flow Rate FiO2 06/22/17 08:30 Room Air 06/22/17 08:30 65 06/22/17 07:58 36.7 55 16 157/68 (97) 99 Room Air 06/22/17 00:10 36.5 60 18 110/70 (83) 98 Room Air 06/21/17 23:15 Room Air 06/21/17 18:00 36.6 83 20 125/67 (86) 94 Room Air 06/21/17 17:30 Room Air 06/21/17 15:45 36.6 85 22 116/65 (82) 96 Room Air (Hali Estrada CRNP) Physical Exam Notes: General: no distress Eyes: normal inspection, PERLL Respiratory: chest non tender, clear to auscultation, normal breath sounds, no respiratory distress, no accessory muscle use Cardiac: regular rate and rhythm, no rub or gallop, no murmur, no edema, no jvd GI/: active bowel sounds, no abd pain or tenderness, soft, non distended Extremities: normal range of motion, normal strength, non tender Neuro/Psych: alert and disoriented, nonsensical verbalization, appears anxious Skin: normal color, dry (Hali Estrada CRNP) Assessment and Plan 81-year-old female with acute metabolic encephalopathy from urinary tract infection vs dehydration present on admission R/o UTI - culture grew lactobacillus, abx stopped Anxiety, agitation, encephalopathy - possibly secondary to dehydration - per daughter whom she lives with patient is at her baseline mentation - continue Exelon, Risperdal and trazodone - prn Haldol CAD - continue ASA, lipitor and metoprolol Constipation - continue Colace and Senna Hyperglycemia - A1c 5.9 - may be exacerbated by antipsychotics - follow morning bsgs for now DVT prevention subq heparin Full code Asked CM to start authorization process for rehab placement as per PT/OT recs. Continue PT/OT while inpatient (Hali Estrada CRNP) I personally examined pt and verified all gaines points w S Sean SHAH no new HPI or ROS family deciding about rehab dtr present - updated nad breathing unlabored no pallor or icterus weakness/dehydration - improved w IVF in hindsight likely no UTI - abx stopped dispo being discussed by family, PT / OT ongoign eval and treat to keep pt from deconditioning further and to aid in dispo recommendations (Joey Ferraro D.O.)
[2017-06-22 15:15] VITALS: BP 148/60; PULSE 70; TEMP 36.6; O2SAT 96
[2017-06-22] MEDS: ATORVASTATIN 10 MG TAB PO SCH (20:43)
[2017-06-22] MEDS: TRAZODONE HCL 50 MG TAB PO SCH (20:45)
[2017-06-22] MEDS ORDERED: ACETAMINOPHEN 325 MG TAB PO PRN (21:15)
[2017-06-22] MEDS: LORAZEPAM INJ 0.5 MG in SYRINGE 0.75 ML IV PRN (21:44)
[2017-06-22 23:16] VITALS: BP 116/63; PULSE 74; TEMP 36.6; O2SAT 95
[2017-06-23 06:06] LABS: HEMOGLOBIN 9.4 g/dL (12.0-16.0); MEAN CELL VOLUME 87.9 fL (80-100); MEAN CORPUSCULAR HEMOGLOBIN 28.5 pg (25-34); MEAN CORPUSCULAR HGB CONC 32.4 g/dl (32-36); MEAN PLATELET VOLUME 9.6 fL (7.4-10.4); PLATELET COUNT 134 K/uL (130-400); RED CELL DISTRIBUTION WIDTH CV 15.1 % (11.5-14.5); RED CELL DISTRIBUTION WIDTH SD 48.9 fL (36.4-46.3); WHITE BLOOD COUNT 5.59 K/uL (4.8-10.8)
[2017-06-23 06:39] LABS: CREATININE 0.81 mg/dl (0.60-1.20); POTASSIUM 3.8 mmol/L (3.5-5.1)
[2017-06-23] MEDS: RISPERIDONE 0.5 MG TAB PO SCH ×2 (07:36→20:08)
[2017-06-23] MEDS: ASPIRIN 81 MG ECTAB PO SCH (07:36)
[2017-06-23] MEDS: DOCUSATE SODIUM 100 MG CAP PO SCH ×2 (07:36→20:05)
[2017-06-23] MEDS: RIVASTIGMINE TARTRATE (EXELON) 1.5 MG CAP PO SCH ×2 (07:37→20:06)
[2017-06-23] MEDS: LIDODERM (LIDOCAINE) PATCH 5% TD SCH (07:37)
[2017-06-23] MEDS: LACTOBACILLUS ACIDOPHILUS (FLORANEX) TAB PO SCH ×3 (07:37→16:06)
[2017-06-23] MEDS: DICLOFENAC SOD 1% GEL 100 GM TUBE EXT SCH ×2 (07:37→19:37)
[2017-06-23] MEDS: METOPROLOL TARTRATE 25 MG TAB PO SCH ×2 (07:37→20:07)
[2017-06-23] MEDS: SENNA 8.6 MG TAB PO SCH (07:37)
[2017-06-23 08:06] VITALS: BP 155/72; PULSE 69; TEMP 36.5; O2SAT 98
[2017-06-23] MEDS: HEPARIN SOD 5000 UNIT/0.5 ML CARP SQ SCH ×2 (11:10→21:36)
--- NOTE | 2017-06-23 14:08 | Hospitalist Progress Note ---
Hospitalist Progress Note Date of Service Jun 23, 2017. (Hali Estrada ., ALYSSA) Subjective Pt evaluation today including: conversation w/ patient, physical exam, chart review, lab review, review of inpatient medication list Voiding: incontinence Confused, unable to answer ros questions sensibly (Hali Estrada ., ALYSSA) Medications Medications Administered Medications (Trade) Dose Ordered Sig/Shaggy Route Start Time Stop Time Status Last Admin Dose Admin Sodium Chloride 1,000 ml @ 999 mls/hr Q1H1M STAT IV 06/20/17 11:06 06/20/17 12:06 DC 06/20/17 11:50 999 MLS/HR Aspirin (Ecotrin Tab) 81 mg DAILY PO 06/21/17 09:00 07/21/17 08:59 06/23/17 07:36 81 MG Atorvastatin Calcium (Lipitor Tab) 10 mg HS PO 06/20/17 21:00 07/20/17 20:59 06/22/17 20:43 10 MG Diclofenac Sodium (Voltaren 1% Top Gel) 1 appln BID EXT 06/20/17 21:00 07/20/17 20:59 06/23/17 07:37 1 APPLN Docusate Sodium (coLACE CAP) 100 mg BID PO 06/20/17 21:00 07/20/17 20:59 06/23/17 07:36 100 MG Lactobacillus Acidophilus (Floranex Tab) 1 tab TIDM PO 06/20/17 18:00 07/20/17 17:59 06/23/17 11:03 1 TAB Lidocaine (Lidoderm Patch 5%) 1 patch DAILY TD 06/21/17 09:00 07/21/17 08:59 06/23/17 07:37 1 PATCH Metoprolol Tartrate (Lopressor Tab) 12.5 mg BID PO 06/20/17 21:00 07/20/17 20:59 06/23/17 07:37 12.5 MG Risperidone (Risperdal Tab) 0.5 mg BID PO 06/20/17 21:00 07/20/17 20:59 06/23/17 07:36 0.5 MG Senna (Senokot Tab) 8.6 mg DAILY PO 06/21/17 09:00 07/21/17 08:59 06/23/17 07:37 8.6 MG Trazodone HCl (Desyrel Tab) 50 mg HS PO 06/20/17 21:00 07/20/17 20:59 06/22/17 20:45 50 MG Rivastigmine Tartrate (Exelon Cap) 1.5 mg BID PO 06/20/17 21:00 07/20/17 20:59 06/23/17 07:37 1.5 MG Miscellaneous (Remove Lidoderm Patch) 1 ea DAILY@21 N/A 06/20/17 21:00 07/20/17 20:59 06/21/17 20:32 1 EA Piperacillin Sod/ Tazobactam Sod 3.375 gm/Dextrose 115 ml @ 28.75 mls/ hr Q8H IV 06/21/17 04:00 06/22/17 08:51 DC 06/22/17 04:59 28.75 MLS/HR Heparin Sodium (Porcine) (Heparin Sq 5000 Unit/0.5ml) 5,000 unit Q12H SQ 06/20/17 22:00 07/20/17 21:59 06/23/17 11:10 5,000 UNIT Sodium Chloride 1,000 ml @ 100 mls/hr Q10H IV 06/20/17 18:30 06/21/17 04:29 DC 06/20/17 22:52 100 MLS/HR Piperacillin Sod/ Tazobactam Sod 3.375 gm/Dextrose 115 ml @ 230 mls/hr NOW STAT IV 06/20/17 21:26 06/20/17 21:55 DC 06/20/17 22:52 230 MLS/HR Lorazepam 0.5 mg/ Syringe 1 ml @ 1 mls/min Q4H PRN IV 06/20/17 21:45 07/20/17 21:44 06/22/17 21:44 1 MLS/MIN Potassium Chloride/Sodium Chloride 1,000 ml @ 75 mls/hr [id number] IV 06/21/17 12:00 06/22/17 01:19 DC 06/21/17 13:34 75 MLS/HR (Hali Estrada, ALYSSA) Objective Vital Signs Date Time Temp Pulse Resp B/P (MAP) Pulse Ox O2 Delivery O2 Flow Rate FiO2 06/23/17 08:06 36.5 69 16 155/72 (99) 98 Room Air 06/23/17 08:00 Room Air 06/23/17 02:00 Room Air 06/22/17 23:16 36.6 74 16 116/63 (80) 95 Room Air 06/22/17 16:00 Room Air 06/22/17 15:15 36.6 70 22 148/60 (89) 96 Room Air (Hali Estrada CRNP) Physical Exam Notes: General: no distress Eyes: normal inspection, PERLL Respiratory: chest non tender, clear to auscultation, normal breath sounds, no respiratory distress, no accessory muscle use Cardiac: regular rate and rhythm, no rub or gallop, 3/6 systolic murmur, no edema, no jvd GI/: active bowel sounds, no abd pain or tenderness, soft, non distended Extremities: normal range of motion, normal strength, non tender Neuro/Psych: alert and oriented x 3, normal mood and affect Skin: normal color, dry (Hali Estrada CRNP) Laboratory Results Last 24 Hours Test 06/23/17 05:58 White Blood Count 5.59 K/uL Red Blood Count 3.30 M/uL Hemoglobin 9.4 g/dL Hematocrit 29.0 % Mean Corpuscular Volume 87.9 fL Mean Corpuscular Hemoglobin 28.5 pg Mean Corpuscular Hemoglobin Concent 32.4 g/dl RDW Standard Deviation 48.9 fL RDW Coefficient of Variation 15.1 % Platelet Count 134 K/uL Mean Platelet Volume 9.6 fL Sodium Level 141 mmol/L Potassium Level 3.8 mmol/L Chloride Level 110 mmol/L Carbon Dioxide Level 24 mmol/L Anion Gap 7.0 mmol/L Blood Urea Nitrogen 12 mg/dl Creatinine 0.81 mg/dl Est Creatinine Clear Calc Drug Dose 57.5 ml/min Estimated GFR () 79.5 Estimated GFR (Non- 68.6 BUN/Creatinine Ratio 14.1 Random Glucose 96 mg/dl Calcium Level 8.0 mg/dl (Hali Estrada CRNP) Assessment and Plan 81-year-old female with acute metabolic encephalopathy from urinary tract infection vs dehydration present on admission R/o UTI - culture grew lactobacillus, abx stopped Anxiety, agitation, encephalopathy - possibly secondary to dehydration - at baseline - continue Exelon, Risperdal and trazodone - prn Haldol CAD - continue ASA, lipitor and metoprolol Constipation - continue Colace and Senna Hyperglycemia - A1c 5.9 - may be exacerbated by antipsychotics - follow morning bsgs for now DVT prevention subq heparin Full code Asked CM to start authorization process for rehab placement as per PT/OT recs. Continue PT/OT while inpatient (Hali Estrada ., ALYSSA) i personally examined pt and verified all gaines points w Tyra SHAH no meaningful HPI or ROS obtainable from pt vitals noted nad breathing unlabored metabolic encephalopathy - appearing delirium on dementia type of situation - provoked by dehydration w hindsight no evidence of UTI, off abx. awaiting placement (Joey Ferraro D.O.)
[2017-06-23 15:19] VITALS: BP 145/70; PULSE 79; TEMP 36.8; O2SAT 95
[2017-06-23] MEDS: LORAZEPAM INJ 0.5 MG in SYRINGE 0.75 ML IV PRN (16:58)
[2017-06-23] MEDS: TRAZODONE HCL 50 MG TAB PO SCH (20:07)
[2017-06-23] MEDS: ATORVASTATIN 10 MG TAB PO SCH (20:07)
[2017-06-24 00:16] VITALS: BP 154/75; PULSE 72; TEMP 36.8; O2SAT 96
[2017-06-24] MEDS: SENNA 8.6 MG TAB PO SCH (07:31)
[2017-06-24] MEDS: DOCUSATE SODIUM 100 MG CAP PO SCH ×2 (07:31→20:32)
[2017-06-24] MEDS: METOPROLOL TARTRATE 25 MG TAB PO SCH ×2 (07:31→20:34)
[2017-06-24] MEDS: LACTOBACILLUS ACIDOPHILUS (FLORANEX) TAB PO SCH ×3 (07:31→16:27)
[2017-06-24] MEDS: RIVASTIGMINE TARTRATE (EXELON) 1.5 MG CAP PO SCH ×2 (07:31→20:32)
[2017-06-24] MEDS: DICLOFENAC SOD 1% GEL 100 GM TUBE EXT SCH ×2 (07:31→20:32)
[2017-06-24] MEDS: RISPERIDONE 0.5 MG TAB PO SCH ×2 (07:31→20:32)
[2017-06-24] MEDS: ASPIRIN 81 MG ECTAB PO SCH (07:31)
[2017-06-24] MEDS: LIDODERM (LIDOCAINE) PATCH 5% TD SCH (07:32)
[2017-06-24 07:40] VITALS: BP 154/78; PULSE 63; TEMP 36.5; O2SAT 97
[2017-06-24] MEDS: HEPARIN SOD 5000 UNIT/0.5 ML CARP SQ SCH ×2 (11:11→22:41)
[2017-06-24] MEDS: LORAZEPAM 0.5 MG TAB PO PRN (14:08)
--- NOTE | 2017-06-24 14:20 | Hospitalist Progress Note ---
Hospitalist Progress Note Date of Service Jun 24, 2017. (Hali Estrada ., ALYSSA) Subjective Pt evaluation today including: conversation w/ patient, physical exam, chart review, lab review, review of inpatient medication list Voiding: incontinence Ms. Easley continues to be confused and disoriented, seated in chair, eating lunch. Talked to son about placement and he agreed to referrals for [facility] or [facility] [place]. Unable to to give ros. (Hali Estrada CRNP) Medications Medications Administered Medications (Trade) Dose Ordered Sig/Shaggy Route Start Time Stop Time Status Last Admin Dose Admin Sodium Chloride 1,000 ml @ 999 mls/hr Q1H1M STAT IV 06/20/17 11:06 06/20/17 12:06 DC 06/20/17 11:50 999 MLS/HR Aspirin (Ecotrin Tab) 81 mg DAILY PO 06/21/17 09:00 07/21/17 08:59 06/24/17 07:31 81 MG Atorvastatin Calcium (Lipitor Tab) 10 mg HS PO 06/20/17 21:00 07/20/17 20:59 06/23/17 20:07 10 MG Diclofenac Sodium (Voltaren 1% Top Gel) 1 appln BID EXT 06/20/17 21:00 07/20/17 20:59 06/24/17 07:31 1 APPLN Docusate Sodium (coLACE CAP) 100 mg BID PO 06/20/17 21:00 07/20/17 20:59 06/24/17 07:31 100 MG Lactobacillus Acidophilus (Floranex Tab) 1 tab TIDM PO 06/20/17 18:00 07/20/17 17:59 06/24/17 11:11 1 TAB Lidocaine (Lidoderm Patch 5%) 1 patch DAILY TD 06/21/17 09:00 07/21/17 08:59 06/23/17 07:37 1 PATCH Metoprolol Tartrate (Lopressor Tab) 12.5 mg BID PO 06/20/17 21:00 07/20/17 20:59 06/24/17 07:31 12.5 MG Risperidone (Risperdal Tab) 0.5 mg BID PO 06/20/17 21:00 07/20/17 20:59 06/24/17 07:31 0.5 MG Senna (Senokot Tab) 8.6 mg DAILY PO 06/21/17 09:00 07/21/17 08:59 06/24/17 07:31 8.6 MG Trazodone HCl (Desyrel Tab) 50 mg HS PO 06/20/17 21:00 07/20/17 20:59 06/23/17 20:07 50 MG Rivastigmine Tartrate (Exelon Cap) 1.5 mg BID PO 06/20/17 21:00 07/20/17 20:59 06/24/17 07:31 1.5 MG Miscellaneous (Remove Lidoderm Patch) 1 ea DAILY@21 N/A 06/20/17 21:00 07/20/17 20:59 06/23/17 18:59 1 EA Lorazepam (Ativan Inj) 0.5 mg Q4H PRN IV 06/20/17 18:15 07/20/17 18:14 06/24/17 00:19 0.5 MG Piperacillin Sod/ Tazobactam Sod 3.375 gm/Dextrose 115 ml @ 28.75 mls/ hr Q8H IV 06/21/17 04:00 06/22/17 08:51 DC 06/22/17 04:59 28.75 MLS/HR Heparin Sodium (Porcine) (Heparin Sq 5000 Unit/0.5ml) 5,000 unit Q12H SQ 06/20/17 22:00 07/20/17 21:59 06/24/17 11:11 5,000 UNIT Sodium Chloride 1,000 ml @ 100 mls/hr Q10H IV 06/20/17 18:30 06/21/17 04:29 DC 06/20/17 22:52 100 MLS/HR Piperacillin Sod/ Tazobactam Sod 3.375 gm/Dextrose 115 ml @ 230 mls/hr NOW STAT IV 06/20/17 21:26 06/20/17 21:55 DC 06/20/17 22:52 230 MLS/HR Lorazepam 0.5 mg/ Syringe 1 ml @ 1 mls/min Q4H PRN IV 06/20/17 21:45 07/20/17 21:44 06/23/17 16:58 1 MLS/MIN Potassium Chloride/Sodium Chloride 1,000 ml @ 75 mls/hr [id number] IV 06/21/17 12:00 2/6/18 01:19 DC 06/21/17 13:34 75 MLS/HR Lorazepam (Ativan Tab) 0.5 mg TID PRN PO 06/24/17 09:15 07/24/17 09:14 06/24/17 14:08 0.5 MG (Hali Estrada CRNP) Objective Vital Signs Date Time Temp Pulse Resp B/P (MAP) Pulse Ox O2 Delivery O2 Flow Rate FiO2 06/24/17 08:00 Room Air 06/24/17 07:40 36.5 63 18 154/78 (103) 97 06/24/17 00:16 36.8 72 18 154/75 (101) 96 Room Air 06/24/17 00:00 Room Air 06/23/17 19:00 Room Air 06/23/17 16:00 Room Air 06/23/17 15:19 36.8 79 20 145/70 (95) 95 Room Air (Hali Estrada CRNP) Physical Exam Notes: General: no distress Eyes: normal inspection, PERLL Respiratory: chest non tender, clear to auscultation, normal breath sounds, no respiratory distress, no accessory muscle use Cardiac: regular rate and rhythm, no rub or gallop, systolic murmur, no edema, no jvd GI/: active bowel sounds, no abd pain or tenderness, soft, non distended Extremities: normal range of motion, normal strength, non tender Neuro/Psych: alert and oriented x 1, somewhat anxious Skin: normal color, dry (Hali Estrada CRNP) Assessment and Plan 81-year-old female with acute metabolic encephalopathy from urinary tract infection vs dehydration present on admission R/o UTI - culture grew lactobacillus, abx stopped Anxiety, agitation, encephalopathy - possibly secondary to dehydration - at baseline - continue Exelon, Risperdal and trazodone - prn Haldol, lorazepam CAD - continue ASA, lipitor and metoprolol Constipation - continue Colace and Senna Hyperglycemia - A1c 5.9 - may be exacerbated by antipsychotics - follow morning bsgs for now DVT prevention subq heparin Full code Awaiting placement (Hali Estrada CRNP) i personally examined pt and verified all gaines points w Tyra SHAH no meaningful HPI or ROS obtainable. family prefers [facility] [facility] instead of home vitals noted nad breathing unlabored weakness - with hindsight no UTI, was dehydration. stable for rehab/snf family finally opted for these as dispo options. stable for discharge once possible (Joey Ferraro D.O.)
--- NOTE | 2017-06-24 14:49 | Discharge Instructions ---
Discharge Instructions Date of Service Jun 24, 2017. Admission Reason for Admission: UTI Discharge Discharge Diagnosis / Problem: dehydration Discharge Goals Goal(s): Diagnostic testing, Therapeutic intervention Activity Recommendations Activity Level: Assistance Required Therapies: Physical Therapy, Occupational Therapy . Additional Information Patient informed of condition: Yes Advance Directives: Yes DNR: No Level of Care: Acute Rehab Communicable Disease: No Prognosis: Improving Current Hospital Diet Patient's current hospital diet: Regular Diet Discharge Diet Recommended Diet: Regular Diet (maintain 60oz fluids per day minimum, follow hydration status) Pending Studies Studies pending at discharge: no Laboratory Results Hemoglobin A1c Test 06/21/17 05:53 Range/Units Estimated Average Glucose 123 mg/dl Hemoglobin A1c 5.9 H 4.5-5.6 % Medical Emergencies . Who to Call and When: Medical Emergencies: If at any time you feel your situation is an emergency, please call 911 immediately. . Non-Emergent Contact Non-Emergency issues call your: Primary Care Provider . . "Provider Documentation" section prepared by Joey Ferraro. . Core Measure Problem Core Measures: None
[2017-06-24 15:37] VITALS: BP 159/79; PULSE 72; TEMP 36.7; O2SAT 95
[2017-06-24] MEDS: TRAZODONE HCL 50 MG TAB PO SCH (20:32)
[2017-06-24] MEDS: ATORVASTATIN 10 MG TAB PO SCH (20:32)
[2017-06-24 23:07] VITALS: BP 131/72; PULSE 64; TEMP 36.7; O2SAT 98
[2017-06-25 06:28] LABS: HEMATOCRIT 31.4 % (37-47); HEMOGLOBIN 10.1 g/dL (12.0-16.0); MEAN CELL VOLUME 87.7 fL (80-100); MEAN CORPUSCULAR HEMOGLOBIN 28.2 pg (25-34); MEAN CORPUSCULAR HGB CONC 32.2 g/dl (32-36); MEAN PLATELET VOLUME 9.5 fL (7.4-10.4); PLATELET COUNT 156 K/uL (130-400); RED CELL DISTRIBUTION WIDTH CV 15.4 % (11.5-14.5); RED CELL DISTRIBUTION WIDTH SD 49.5 fL (36.4-46.3); WHITE BLOOD COUNT 6.26 K/uL (4.8-10.8)
[2017-06-25 06:47] LABS: CALCIUM 8.4 mg/dl (8.5-10.1); CREATININE 0.79 mg/dl (0.60-1.20)
[2017-06-25 07:42] VITALS: BP 150/60; PULSE 72; TEMP 37.2; O2SAT 95
[2017-06-25 08:02] VITALS: O2SAT 95
[2017-06-25] MEDS: ASPIRIN 81 MG ECTAB PO SCH (08:39)
[2017-06-25] MEDS: DICLOFENAC SOD 1% GEL 100 GM TUBE EXT SCH ×2 (08:39→19:53)
[2017-06-25] MEDS: DOCUSATE SODIUM 100 MG CAP PO SCH ×2 (08:39→19:53)
[2017-06-25] MEDS: RISPERIDONE 0.5 MG TAB PO SCH ×2 (08:39→19:53)
[2017-06-25] MEDS: METOPROLOL TARTRATE 25 MG TAB PO SCH ×2 (08:39→19:54)
[2017-06-25] MEDS: SENNA 8.6 MG TAB PO SCH (08:40)
[2017-06-25] MEDS: LACTOBACILLUS ACIDOPHILUS (FLORANEX) TAB PO SCH ×3 (08:40→17:36)
[2017-06-25] MEDS: RIVASTIGMINE TARTRATE (EXELON) 1.5 MG CAP PO SCH ×2 (08:40→19:53)
[2017-06-25] MEDS: LIDODERM (LIDOCAINE) PATCH 5% TD SCH (08:41)
[2017-06-25] MEDS: LORAZEPAM 0.5 MG TAB PO PRN ×2 (08:47→15:54)
[2017-06-25] MEDS: HEPARIN SOD 5000 UNIT/0.5 ML CARP SQ SCH ×2 (10:06→19:58)
--- NOTE | 2017-06-25 14:01 | Hospitalist Progress Note ---
Hospitalist Progress Note Date of Service Jun 25, 2017. (Hali Estrada ., ALYSSA) Subjective Pt evaluation today including: conversation w/ patient, physical exam, chart review, lab review, review of inpatient medication list Voiding: incontinence Ms. Easley continues to be unable to give ROS or HPI due to dementia. (Hali Estrada ., ALYSSA) Medications Medications Administered Medications (Trade) Dose Ordered Sig/Shaggy Route Start Time Stop Time Status Last Admin Dose Admin Sodium Chloride 1,000 ml @ 999 mls/hr Q1H1M STAT IV 06/20/17 11:06 06/20/17 12:06 DC 06/20/17 11:50 999 MLS/HR Aspirin (Ecotrin Tab) 81 mg DAILY PO 06/21/17 09:00 07/21/17 08:59 06/25/17 08:39 81 MG Atorvastatin Calcium (Lipitor Tab) 10 mg HS PO 06/20/17 21:00 07/20/17 20:59 06/24/17 20:32 10 MG Diclofenac Sodium (Voltaren 1% Top Gel) 1 appln BID EXT 06/20/17 21:00 07/20/17 20:59 06/25/17 08:39 1 APPLN Docusate Sodium (coLACE CAP) 100 mg BID PO 06/20/17 21:00 07/20/17 20:59 06/25/17 08:39 100 MG Lactobacillus Acidophilus (Floranex Tab) 1 tab TIDM PO 06/20/17 18:00 07/20/17 17:59 06/25/17 11:50 1 TAB Lidocaine (Lidoderm Patch 5%) 1 patch DAILY TD 06/21/17 09:00 07/21/17 08:59 06/25/17 08:41 1 PATCH Metoprolol Tartrate (Lopressor Tab) 12.5 mg BID PO 06/20/17 21:00 07/20/17 20:59 06/25/17 08:39 12.5 MG Risperidone (Risperdal Tab) 0.5 mg BID PO 06/20/17 21:00 07/20/17 20:59 06/25/17 08:39 0.5 MG Senna (Senokot Tab) 8.6 mg DAILY PO 06/21/17 09:00 07/21/17 08:59 06/25/17 08:40 8.6 MG Trazodone HCl (Desyrel Tab) 50 mg HS PO 06/20/17 21:00 07/20/17 20:59 06/24/17 20:32 50 MG Rivastigmine Tartrate (Exelon Cap) 1.5 mg BID PO 06/20/17 21:00 07/20/17 20:59 06/25/17 08:40 1.5 MG Miscellaneous (Remove Lidoderm Patch) 1 ea DAILY@21 N/A 06/20/17 21:00 07/20/17 20:59 06/23/17 18:59 1 EA Lorazepam (Ativan Inj) 0.5 mg Q4H PRN IV 06/20/17 18:15 07/20/17 18:14 06/24/17 00:19 0.5 MG Piperacillin Sod/ Tazobactam Sod 3.375 gm/Dextrose 115 ml @ 28.75 mls/ hr Q8H IV 06/21/17 04:00 06/22/17 08:51 DC 06/22/17 04:59 28.75 MLS/HR Heparin Sodium (Porcine) (Heparin Sq 5000 Unit/0.5ml) 5,000 unit Q12H SQ 06/20/17 22:00 07/20/17 21:59 06/25/17 10:06 5,000 UNIT Sodium Chloride 1,000 ml @ 100 mls/hr Q10H IV 06/20/17 18:30 06/21/17 04:29 DC 06/20/17 22:52 100 MLS/HR Piperacillin Sod/ Tazobactam Sod 3.375 gm/Dextrose 115 ml @ 230 mls/hr NOW STAT IV 06/20/17 21:26 06/20/17 21:55 DC 06/20/17 22:52 230 MLS/HR Lorazepam 0.5 mg/ Syringe 1 ml @ 1 mls/min Q4H PRN IV 06/20/17 21:45 07/20/17 21:44 06/23/17 16:58 1 MLS/MIN Potassium Chloride/Sodium Chloride 1,000 ml @ 75 mls/hr [id number] IV 06/21/17 12:00 06/22/17 01:19 DC 06/21/17 13:34 75 MLS/HR Lorazepam (Ativan Tab) 0.5 mg TID PRN PO 06/24/17 09:15 07/24/17 09:14 06/25/17 08:47 0.5 MG (Hali Estrada CRNP) Objective Vital Signs Date Time Temp Pulse Resp B/P (MAP) Pulse Ox O2 Delivery O2 Flow Rate FiO2 06/25/17 08:30 Room Air 06/25/17 08:02 95 Room Air 06/25/17 07:42 37.2 72 20 150/60 (90) 95 Room Air 06/25/17 00:10 Room Air 06/24/17 23:07 36.7 64 18 131/72 (91) 98 Room Air 06/24/17 20:50 Room Air 06/24/17 16:00 Room Air 06/24/17 15:37 36.7 72 18 159/79 (105) 95 Room Air (Hali Estrada CRNP) Physical Exam Notes: General: no distress Eyes: normal inspection, PERLL Respiratory: chest non tender, clear to auscultation, normal breath sounds, no respiratory distress, no accessory muscle use Cardiac: regular rate and rhythm, no rub or gallop, no murmur, no edema, no jvd GI/: active bowel sounds, no abd pain or tenderness, soft, non distended Extremities: normal range of motion, normal strength, non tender Neuro/Psych: alert and oriented to self and place, anxious Skin: normal color, dry (Hali Estrada CRNP) Laboratory Results Last 24 Hours Test 06/25/17 06:16 06/25/17 11:05 White Blood Count 6.26 K/uL Red Blood Count 3.58 M/uL Hemoglobin 10.1 g/dL Hematocrit 31.4 % Mean Corpuscular Volume 87.7 fL Mean Corpuscular Hemoglobin 28.2 pg Mean Corpuscular Hemoglobin Concent 32.2 g/dl RDW Standard Deviation 49.5 fL RDW Coefficient of Variation 15.4 % Platelet Count 156 K/uL Mean Platelet Volume 9.5 fL Sodium Level 140 mmol/L Potassium Level 4.0 mmol/L Chloride Level 108 mmol/L Carbon Dioxide Level 24 mmol/L Anion Gap 8.0 mmol/L Blood Urea Nitrogen 15 mg/dl Creatinine 0.79 mg/dl Est Creatinine Clear Calc Drug Dose 59.0 ml/min Estimated GFR () 81.9 Estimated GFR (Non- 70.7 BUN/Creatinine Ratio 19.1 Random Glucose 96 mg/dl Calcium Level 8.4 mg/dl Urine Color YELLOW Urine Appearance CLEAR Urine pH 5.0 Urine Specific [place] 1.020 Urine Protein NEG Urine Glucose (UA) NEG Urine Ketones NEG Urine Occult Blood NEG Urine Nitrite NEG Urine Bilirubin NEG Urine Urobilinogen NEG Urine Leukocyte Esterase NEG (Hali Estrada CRNP) Assessment and Plan 81-year-old female with acute metabolic encephalopathy from urinary tract infection vs dehydration present on admission R/o UTI - culture grew lactobacillus, abx stopped - son VERY concerned about patient being discharged with UTI to [facility] especially as she has been incontinent - UA cath resulted clean urine Anxiety, agitation, encephalopathy - possibly secondary to dehydration - at baseline - continue Exelon, Risperdal and trazodone - prn Haldol, lorazepam CAD - continue ASA, lipitor and metoprolol Constipation - continue Colace and Senna Hyperglycemia - A1c 5.9 - may be exacerbated by antipsychotics - follow morning bsgs for now - stable DVT prevention subq heparin Full code Awaiting placement (Hali Estrada CRNP) LITHOSTRIPPER Physician Supervision Note: I interviewed and examined the patient. Discussed with Hali Estrada LITHOSTRIPPER and agree with findings and plan as documented in the note. Any exceptions or clarifications are listed here: None pt remains confused at times with ambulation requiring assistance. family is aware we are awaiting placement vitals are stable 37.2 72 20 150/60 cardiac is regular, lungs are clear oriented x2 81-year-old female with acute metabolic encephalopathy no confirmed uti, suspect mild dehydration Urine culture grew lactobacillus, abx stopped Anxiety, agitation, encephalopathy - possibly secondary to dehydration remains on Exelon, Risperdal and trazodone - prn Haldol, lorazepam CAD no complaints of chest pain ASA, lipitor and metoprolol Constipation Colace and Senna Hyperglycemia resolved, - A1c 5.9 may be secondary to antipsychotics DVT prevention subq heparin Full code Documented By: Alton Hernandez (Alton Hernandez M.D.)
[2017-06-25 15:12] VITALS: BP 139/83; PULSE 69; TEMP 36.6; O2SAT 97
[2017-06-25] MEDS: TRAZODONE HCL 50 MG TAB PO SCH (19:54)
[2017-06-25] MEDS: ATORVASTATIN 10 MG TAB PO SCH (19:54)
[2017-06-25 22:42] VITALS: BP 128/63; PULSE 68; TEMP 36.6; O2SAT 95
[2017-06-26 07:33] VITALS: BP 149/77; PULSE 64; TEMP 36.5; O2SAT 96
[2017-06-26] MEDS: LORAZEPAM 0.5 MG TAB PO PRN ×2 (08:55→19:00)
[2017-06-26] MEDS: ASPIRIN 81 MG ECTAB PO SCH (08:55)
[2017-06-26] MEDS: SENNA 8.6 MG TAB PO SCH (08:55)
[2017-06-26] MEDS: METOPROLOL TARTRATE 25 MG TAB PO SCH ×2 (08:55→20:48)
[2017-06-26] MEDS: RISPERIDONE 0.5 MG TAB PO SCH ×2 (08:56→20:39)
[2017-06-26] MEDS: RIVASTIGMINE TARTRATE (EXELON) 1.5 MG CAP PO SCH ×2 (08:56→20:39)
[2017-06-26] MEDS: DOCUSATE SODIUM 100 MG CAP PO SCH ×2 (08:56→20:47)
[2017-06-26] MEDS: DICLOFENAC SOD 1% GEL 100 GM TUBE EXT SCH ×2 (08:57→20:41)
[2017-06-26] MEDS: LACTOBACILLUS ACIDOPHILUS (FLORANEX) TAB PO SCH ×3 (08:58→19:00)
[2017-06-26] MEDS: LIDODERM (LIDOCAINE) PATCH 5% TD SCH ×2 (08:59→13:37)
--- NOTE | 2017-06-26 09:39 | Progress Note ---
Subjective Date of Service: Jun 26, 2017. Problem List Medical Problems: (1) Abnormal EKG Status: Acute (2) Agitation Status: Acute (3) Alteration consciousness Status: Acute (4) Altered mental status Status: Acute (5) Atypical chest pain Status: Acute (6) Confused Status: Acute (7) Confusion Status: Acute (8) Dark stools Status: Acute (9) Dehydration Status: Acute (10) Fall Status: Acute (11) Generalized weakness Status: Acute (12) Head injury Status: Acute (13) Lumbar compression fracture Status: Acute (14) Precordial chest pain Status: Acute (15) Rectal bleeding Status: Acute (16) Respiratory distress Status: Acute (17) Toenail avulsion Status: Acute (18) Urinary tract infection Status: Acute (19) UTI (urinary tract infection) Status: Acute (20) UTI (urinary tract infection) Status: Acute Objective Vital Signs Date Time Temp Pulse Resp B/P (MAP) Pulse Ox O2 Delivery O2 Flow Rate FiO2 06/26/17 07:33 36.5 64 17 149/77 (101) 96 Room Air 06/26/17 01:00 Room Air 06/25/17 22:42 36.6 68 18 128/63 (84) 95 Room Air 06/25/17 16:00 Room Air 06/25/17 15:12 36.6 69 18 139/83 (101) 97 Laboratory Results Last 24 Hours Test 06/25/17 11:05 Urine Color YELLOW Urine Appearance CLEAR Urine pH 5.0 Urine Specific [place] 1.020 Urine Protein NEG Urine Glucose (UA) NEG Urine Ketones NEG Urine Occult Blood NEG Urine Nitrite NEG Urine Bilirubin NEG Urine Urobilinogen NEG Urine Leukocyte Esterase NEG Assessment and Plan RN COMPLEX CARE Physician Supervision Note: I interviewed and examined the patient. Discussed with Hali Estrada RN COMPLEX CARE and agree with findings and plan as documented in the note. Any exceptions or clarifications are listed here: None pt remains confused at times with ambulation requiring assistance. family is aware we are awaiting placement vitals are stable 37.2 72 20 150/60 cardiac is regular, lungs are clear oriented x2 81-year-old female with acute metabolic encephalopathy no confirmed uti, suspect mild dehydration Urine culture grew lactobacillus, abx stopped Anxiety, agitation, encephalopathy - possibly secondary to dehydration remains on Exelon, Risperdal and trazodone - prn Haldol, lorazepam CAD no complaints of chest pain ASA, lipitor and metoprolol Constipation Colace and Senna Hyperglycemia resolved, - A1c 5.9 may be secondary to antipsychotics DVT prevention subq heparin Full code Documented By: Alton Hernandez
[2017-06-26] MEDS: HEPARIN SOD 5000 UNIT/0.5 ML CARP SQ SCH ×2 (10:05→20:46)
[2017-06-26] MEDS ORDERED: RISPERIDONE 0.5 MG TAB PO ONE (12:30)
[2017-06-26 14:31] VITALS: BP 147/78; PULSE 77; TEMP 36.5; O2SAT 98
--- NOTE | 2017-06-26 16:11 | Progress Note ---
Subjective Date of Service: Jun 26, 2017. Subjective pt is about her usual states seems anxious and distressed, uncomfortable. Family is perseverating regarding ativan to calm her anxiety and getting her to possibly inpatient [facility], she did not have UTI on admission but remains incontinent Problem List Medical Problems: (1) Abnormal EKG Status: Acute (2) Agitation Status: Acute (3) Alteration consciousness Status: Acute (4) Altered mental status Status: Acute (5) Atypical chest pain Status: Acute (6) Confused Status: Acute (7) Confusion Status: Acute (8) Dark stools Status: Acute (9) Dehydration Status: Acute (10) Fall Status: Acute (11) Generalized weakness Status: Acute (12) Head injury Status: Acute (13) Lumbar compression fracture Status: Acute (14) Precordial chest pain Status: Acute (15) Rectal bleeding Status: Acute (16) Respiratory distress Status: Acute (17) Toenail avulsion Status: Acute (18) Urinary tract infection Status: Acute (19) UTI (urinary tract infection) Status: Acute (20) UTI (urinary tract infection) Status: Acute Review of Systems Constitutional: + weakness, + fatigue, No fever, No chills Respiratory: No shortness of breath Cardiac: No chest pain, No edema Abdomen: No pain, No nausea Female : + urinary frequency, + incontinence, No dysuria Neurologic: + memory loss, + weakness Psychiatric: + depression symptoms, + anxiety Objective Vital Signs Date Time Temp Pulse Resp B/P (MAP) Pulse Ox O2 Delivery O2 Flow Rate FiO2 06/26/17 14:31 36.5 77 18 147/78 (101) 98 06/26/17 08:30 Room Air 06/26/17 07:33 36.5 64 17 149/77 (101) 96 Room Air 06/26/17 01:00 Room Air 06/25/17 22:42 36.6 68 18 128/63 (84) 95 Room Air Physical Exam General Appearance: WD/WN, + moderate distress Eyes: normal inspection, sclerae normal Neck: supple, no JVD Respiratory/Chest: chest non-tender, lungs clear, normal breath sounds Cardiovascular: regular rate, rhythm, no murmur Abdomen: normal bowel sounds, non tender, soft Extremities: no pedal edema, no calf tenderness Neurologic/Psychiatric: alert, + pertinent finding (anxious plus psychomotor agitation) Assessment and Plan 81-year-old female with acute encephalopathy no confirmed uti, suspect mild dehydration. There is likely and underlying agitation associated with dementia , but family reports a head decline as an outpt Urine culture grew lactobacillus, abx stopped, repeat urine culture with urging of son, remains incontinent Anxiety, agitation, encephalopathy remains on Exelon, Risperdal and trazodone additional dose of risperdal given, try prazosin to see if helps behavior will discuss with psychiatry - prn Haldol, lorazepam CAD no complaints of chest pain ASA, lipitor and metoprolol Constipation Colace and Senna Hyperglycemia resolved, - A1c 5.9 may be secondary to antipsychotics DVT prevention subq heparin Full code
[2017-06-26] MEDS ORDERED: NON-FORMULARY MEDICATION SCH (16:15)
[2017-06-26 19:48] VITALS: BP 135/68; PULSE 91
[2017-06-26] MEDS: TRAZODONE HCL 50 MG TAB PO SCH (20:39)
[2017-06-26] MEDS: PRAZOSIN HCL 1 MG CAP PO SCH (20:40)
[2017-06-26] MEDS: ATORVASTATIN 10 MG TAB PO SCH (20:48)
[2017-06-26] MEDS ORDERED: NURSING DECISION MEDICATION ORDER SCH (21:15)
[2017-06-26] MEDS ORDERED: MICONAZOLE NITRATE POWDER 43 GM EXT PRN (21:30)
[2017-06-26 21:53] VITALS: BP 130/70; PULSE 73; TEMP 36.5; O2SAT 97
[2017-06-27 06:00] LABS: HEMATOCRIT 30.1 % (37-47); HEMOGLOBIN 9.6 g/dL (12.0-16.0); MEAN CELL VOLUME 88.5 fL (80-100); MEAN CORPUSCULAR HEMOGLOBIN 28.2 pg (25-34); MEAN CORPUSCULAR HGB CONC 31.9 g/dl (32-36); MEAN PLATELET VOLUME 9.7 fL (7.4-10.4); PLATELET COUNT 165 K/uL (130-400); RED CELL DISTRIBUTION WIDTH CV 15.6 % (11.5-14.5); RED CELL DISTRIBUTION WIDTH SD 49.8 fL (36.4-46.3)
[2017-06-27 06:29] LABS: CALCIUM 8.5 mg/dl (8.5-10.1); CREATININE 0.82 mg/dl (0.60-1.20); POTASSIUM 3.8 mmol/L (3.5-5.1)
[2017-06-27 06:59] VITALS: BP 143/74; PULSE 72; TEMP 36.5; O2SAT 98
[2017-06-27 08:00] VITALS: O2SAT 98
[2017-06-27] MEDS: DICLOFENAC SOD 1% GEL 100 GM TUBE EXT SCH ×2 (08:15→20:57)
[2017-06-27] MEDS: DOCUSATE SODIUM 100 MG CAP PO SCH ×2 (08:16→21:02)
[2017-06-27] MEDS: SENNA 8.6 MG TAB PO SCH (08:16)
[2017-06-27] MEDS: ASPIRIN 81 MG ECTAB PO SCH (08:16)
[2017-06-27] MEDS: METOPROLOL TARTRATE 25 MG TAB PO SCH ×2 (08:16→21:01)
[2017-06-27] MEDS: RIVASTIGMINE TARTRATE (EXELON) 1.5 MG CAP PO SCH ×2 (08:16→20:59)
[2017-06-27] MEDS: RISPERIDONE 0.5 MG TAB PO SCH ×2 (08:16→20:58)
[2017-06-27] MEDS: LACTOBACILLUS ACIDOPHILUS (FLORANEX) TAB PO SCH ×3 (08:16→17:17)
[2017-06-27] MEDS: LIDODERM (LIDOCAINE) PATCH 5% TD SCH ×2 (08:17→08:18)
--- NOTE | 2017-06-27 09:03 | Progress Note ---
Subjective Date of Service: Jun 27, 2017. Subjective pt remains fearful and anxious, she did not have any significant affects from prazosin, will try clonazapam today Problem List Medical Problems: (1) Abnormal EKG Status: Acute (2) Agitation Status: Acute (3) Alteration consciousness Status: Acute (4) Altered mental status Status: Acute (5) Atypical chest pain Status: Acute (6) Confused Status: Acute (7) Confusion Status: Acute (8) Dark stools Status: Acute (9) Dehydration Status: Acute (10) Fall Status: Acute (11) Generalized weakness Status: Acute (12) Head injury Status: Acute (13) Lumbar compression fracture Status: Acute (14) Precordial chest pain Status: Acute (15) Rectal bleeding Status: Acute (16) Respiratory distress Status: Acute (17) Toenail avulsion Status: Acute (18) Urinary tract infection Status: Acute (19) UTI (urinary tract infection) Status: Acute (20) UTI (urinary tract infection) Status: Acute Review of Systems Constitutional: No fever, No chills, No weakness, No fatigue Respiratory: No cough, No shortness of breath, No dyspnea on exertion Cardiac: No chest pain, No edema, No claudication Abdomen: No pain, No nausea, No vomiting, No diarrhea Musculoskeletal: No joint pain, No muscle pain Neurologic: No memory loss, No weakness Objective Vital Signs Date Time Temp Pulse Resp B/P (MAP) Pulse Ox O2 Delivery O2 Flow Rate FiO2 06/27/17 06:59 36.5 72 18 143/74 (97) 98 Room Air 06/27/17 00:00 Room Air 06/26/17 21:53 36.5 73 18 130/70 (90) 97 Room Air 06/26/17 20:00 Room Air 06/26/17 19:48 91 135/68 (90) 06/26/17 16:00 Room Air 06/26/17 14:31 36.5 77 18 147/78 (101) 98 Physical Exam General Appearance: WD/WN, + mild distress Eyes: normal inspection, sclerae normal Neck: supple, no JVD Respiratory/Chest: chest non-tender, lungs clear Cardiovascular: regular rate, rhythm, no murmur Abdomen: normal bowel sounds, non tender, soft Neurologic/Psychiatric: + depressed affect, + disoriented Laboratory Results Last 24 Hours Test 06/27/17 05:46 White Blood Count 6.00 K/uL Red Blood Count 3.40 M/uL Hemoglobin 9.6 g/dL Hematocrit 30.1 % Mean Corpuscular Volume 88.5 fL Mean Corpuscular Hemoglobin 28.2 pg Mean Corpuscular Hemoglobin Concent 31.9 g/dl RDW Standard Deviation 49.8 fL RDW Coefficient of Variation 15.6 % Platelet Count 165 K/uL Mean Platelet Volume 9.7 fL Sodium Level 140 mmol/L Potassium Level 3.8 mmol/L Chloride Level 108 mmol/L Carbon Dioxide Level 25 mmol/L Anion Gap 7.0 mmol/L Blood Urea Nitrogen 19 mg/dl Creatinine 0.82 mg/dl Est Creatinine Clear Calc Drug Dose 56.8 ml/min Estimated GFR () 78.3 Estimated GFR (Non- 67.6 BUN/Creatinine Ratio 22.9 Random Glucose 108 mg/dl Calcium Level 8.5 mg/dl Assessment and Plan 81-year-old female with acute encephalopathy no confirmed uti, suspect mild dehydration. There is likely and underlying agitation associated with dementia , but family reports a head decline as an outpt Urine culture grew lactobacillus, abx stopped, repeat urine culture with urging of son, remains incontinent Anxiety, agitation, encephalopathy remains on Exelon, Risperdal and trazodone additional dose of risperdal given, tried prazosin to see if helps behavior tried clonazepam will discuss with psychiatry - prn Haldol, lorazepam CAD no complaints of chest pain ASA, lipitor and metoprolol Constipation Colace and Senna Hyperglycemia resolved, - A1c 5.9 may be secondary to antipsychotics DVT prevention subq heparin Full code
[2017-06-27] MEDS: HEPARIN SOD 5000 UNIT/0.5 ML CARP SQ SCH ×2 (10:07→21:02)
[2017-06-27] MEDS ORDERED: CLONAZEPAM 0.5 MG TAB PO STA (12:22)
[2017-06-27 14:30] VITALS: BP 125/67; PULSE 67; TEMP 36.3; O2SAT 97
[2017-06-27] MEDS: LORAZEPAM 0.5 MG TAB PO PRN (19:41)
[2017-06-27] MEDS: TRAZODONE HCL 50 MG TAB PO SCH (20:58)
[2017-06-27] MEDS: PRAZOSIN HCL 1 MG CAP PO SCH (20:59)
[2017-06-27] MEDS: ATORVASTATIN 10 MG TAB PO SCH (21:02)
[2017-06-27 22:43] VITALS: BP 131/72; PULSE 72; TEMP 36.3; O2SAT 94
[2017-06-28] MEDS: LIDODERM (LIDOCAINE) PATCH 5% TD SCH ×2 (07:37)
[2017-06-28] MEDS: SENNA 8.6 MG TAB PO SCH (07:38)
[2017-06-28] MEDS: LACTOBACILLUS ACIDOPHILUS (FLORANEX) TAB PO SCH ×3 (07:38→16:57)
[2017-06-28] MEDS: RIVASTIGMINE TARTRATE (EXELON) 1.5 MG CAP PO SCH ×2 (07:38→20:43)
[2017-06-28] MEDS: ASPIRIN 81 MG ECTAB PO SCH (07:38)
[2017-06-28] MEDS: DICLOFENAC SOD 1% GEL 100 GM TUBE EXT SCH ×2 (07:38→20:45)
[2017-06-28] MEDS: METOPROLOL TARTRATE 25 MG TAB PO SCH ×2 (07:38→20:43)
[2017-06-28] MEDS: RISPERIDONE 0.5 MG TAB PO SCH ×2 (07:38→20:44)
[2017-06-28] MEDS: DOCUSATE SODIUM 100 MG CAP PO SCH ×2 (07:59→20:45)
[2017-06-28 08:00] VITALS: O2SAT 99
[2017-06-28 08:11] VITALS: BP 169/78; PULSE 65; TEMP 36.4; O2SAT 99
[2017-06-28] MEDS: LORAZEPAM 0.5 MG TAB PO PRN ×2 (09:12→16:57)
[2017-06-28] MEDS: HEPARIN SOD 5000 UNIT/0.5 ML CARP SQ SCH ×2 (10:09→20:41)
--- NOTE | 2017-06-28 14:56 | Hospitalist Progress Note ---
Hospitalist Progress Note Date of Service Jun 28, 2017. (Hali Estrada .ALYSSA) Subjective Pt evaluation today including: conversation w/ patient, conversation w/ family , physical exam, chart review, conversation w/ business solutions consultant, review of inpatient medication list Voiding: incontinence Extensive conversation with son by phone. He is very concerned about his mother being discharged to [facility] and really wants his mother to be sent to inpatient [facility]. Discussed with psych nurse liason and case management. A referral to [facility] will be made. If this is denied, son has agreed mother can go to [facility]. Unable to obtain ROS as patient is disoriented. (Hali Estrada ., ALYSSA) Medications Medications Administered Medications (Trade) Dose Ordered Sig/Shaggy Route Start Time Stop Time Status Last Admin Dose Admin Sodium Chloride 1,000 ml @ 999 mls/hr Q1H1M STAT IV 06/20/17 11:06 06/20/17 12:06 DC 06/20/17 11:50 999 MLS/HR Aspirin (Ecotrin Tab) 81 mg DAILY PO 06/21/17 09:00 07/21/17 08:59 06/28/17 07:38 81 MG Atorvastatin Calcium (Lipitor Tab) 10 mg HS PO 06/20/17 21:00 07/20/17 20:59 06/27/17 21:02 10 MG Diclofenac Sodium (Voltaren 1% Top Gel) 1 appln BID EXT 06/20/17 21:00 07/20/17 20:59 06/28/17 07:38 1 APPLN Docusate Sodium (coLACE CAP) 100 mg BID PO 06/20/17 21:00 07/20/17 20:59 06/28/17 07:59 100 MG Lactobacillus Acidophilus (Floranex Tab) 1 tab TIDM PO 06/20/17 18:00 07/20/17 17:59 06/28/17 12:32 1 TAB Lidocaine (Lidoderm Patch 5%) 1 patch DAILY TD 06/21/17 09:00 07/21/17 08:59 06/28/17 07:37 1 PATCH Metoprolol Tartrate (Lopressor Tab) 12.5 mg BID PO 06/20/17 21:00 07/20/17 20:59 06/28/17 07:38 12.5 MG Risperidone (Risperdal Tab) 0.5 mg BID PO 06/20/17 21:00 07/20/17 20:59 06/28/17 07:38 0.5 MG Senna (Senokot Tab) 8.6 mg DAILY PO 06/21/17 09:00 07/21/17 08:59 06/28/17 07:38 8.6 MG Trazodone HCl (Desyrel Tab) 50 mg HS PO 06/20/17 21:00 07/20/17 20:59 06/27/17 20:58 50 MG Rivastigmine Tartrate (Exelon Cap) 1.5 mg BID PO 06/20/17 21:00 07/20/17 20:59 06/28/17 07:38 1.5 MG Miscellaneous (Remove Lidoderm Patch) 1 ea DAILY@21 N/A 06/20/17 21:00 07/20/17 20:59 06/27/17 20:57 1 EA Lorazepam (Ativan Inj) 0.5 mg Q4H PRN IV 06/20/17 18:15 07/20/17 18:14 06/24/17 00:19 0.5 MG Piperacillin Sod/ Tazobactam Sod 3.375 gm/Dextrose 115 ml @ 28.75 mls/ hr Q8H IV 06/21/17 04:00 06/22/17 08:51 DC 06/22/17 04:59 28.75 MLS/HR Heparin Sodium (Porcine) (Heparin Sq 5000 Unit/0.5ml) 5,000 unit Q12H SQ 06/20/17 22:00 07/20/17 21:59 06/28/17 10:09 5,000 UNIT Sodium Chloride 1,000 ml @ 100 mls/hr Q10H IV 06/20/17 18:30 06/21/17 04:29 DC 06/20/17 22:52 100 MLS/HR Piperacillin Sod/ Tazobactam Sod 3.375 gm/Dextrose 115 ml @ 230 mls/hr NOW STAT IV 06/20/17 21:26 06/20/17 21:55 DC 06/20/17 22:52 230 MLS/HR Lorazepam 0.5 mg/ Syringe 1 ml @ 1 mls/min Q4H PRN IV 06/20/17 21:45 07/20/17 21:44 06/23/17 16:58 1 MLS/MIN Potassium Chloride/Sodium Chloride 1,000 ml @ 75 mls/hr [id number] IV 06/21/17 12:00 06/22/17 01:19 DC 06/21/17 13:34 75 MLS/HR Lorazepam (Ativan Tab) 0.5 mg TID PRN PO 06/24/17 09:15 07/24/17 09:14 06/28/17 09:12 0.5 MG Lidocaine (Lidoderm Patch 5%) 1 patch QAM TD 06/26/17 12:45 07/26/17 12:44 06/28/17 07:37 1 PATCH Miscellaneous (Remove Lidoderm Patch) 1 ea DAILY@21 N/A 06/26/17 21:00 07/26/17 20:59 06/27/17 20:57 1 EA Risperidone (Risperdal Tab) 0.5 mg 1230 ONCE PO 06/26/17 12:30 06/26/17 12:31 DC 06/26/17 12:23 0.5 MG Prazosin HCl (Prazosin) 1 mg HS PO 06/26/17 21:00 07/26/17 20:59 06/27/17 20:59 1 MG Clonazepam (Klonopin Tab) 0.5 mg NOW STAT PO 06/27/17 12:22 06/27/17 12:23 DC 06/27/17 12:28 0.5 MG (Hali Estrada, DIRECTOR OF TEACHER EDUCATION) Objective Vital Signs Date Time Temp Pulse Resp B/P (MAP) Pulse Ox O2 Delivery O2 Flow Rate FiO2 06/28/17 08:11 36.4 65 20 169/78 (108) 99 Room Air 06/28/17 08:00 99 Room Air 06/28/17 00:00 Room Air 06/27/17 22:43 36.3 72 18 131/72 (91) 94 Room Air 06/27/17 16:00 Room Air (Hali Estrada, DIRECTOR OF TEACHER EDUCATION) Physical Exam Notes: General: no distress Eyes: normal inspection, PERLL Respiratory: chest non tender, clear to auscultation, normal breath sounds, no respiratory distress, no accessory muscle use Cardiac: regular rate and rhythm, no rub or gallop, systolic murmur, no edema, no jvd GI/: active bowel sounds, no abd pain or tenderness, soft, non distended Extremities: normal range of motion, normal strength, non tender Neuro/Psych: alert and oriented to person and place, very confused, anxious Skin: normal color, dry (Hali Estrada CRNP) Assessment and Plan 81-year-old female with acute metabolic encephalopathy from urinary tract infection vs dehydration present on admission R/o UTI - resolved - no UTI on culture Anxiety, agitation, encephalopathy - possibly secondary to dehydration - had extensive conversation with son - referral to [facility] made. He is very concerned about his mother's agitation and anxiety being addressed and very much wants her in an inpatient psych facility - continue Exelon, Risperdal and trazodone - prn Haldol, lorazepam CAD - continue ASA, lipitor and metoprolol Constipation - continue Colace and Senna Hyperglycemia - A1c 5.9 - stable DVT prevention subq heparin Full code Awaiting placement - referral to [facility], otherwise will go to [facility] (Hali Estrada CRNP) HYDROCRANE OPERATOR Physician Supervision Note: I interviewed and examined the patient. Discussed with Hali Estrada HYDROCRANE OPERATOR and agree with findings and plan as documented in the note. Any exceptions or clarifications are listed here: None This patient is in about her usual state fairly anxious and crying out at times being home there is much discussion with family today and I believe we can justify an extended visit as I spent personally 45 minutes talking to the patient's family also her outpatient psychiatrist and also her psychiatric liaison regarding eventual disposition of this patient. The patient himself cannot speak for herself He becomes clear that the son wishes for a orthopedic evaluation for possible injections of her knees to relieve knee pain which he perceives as her barrier to ambulating The son also requests possible second opinion from a geriatric psychiatric person such as Dr. Galloway which could be also arranged as an outpatient The son also request [facility] although he was told this will likely not be feasible after evaluation by our inpatient psych team The patient's disposition will likely be to [facility] with continued psychiatric oversight and medication adjustment Patient herself is in mild to moderate distress at times crying out claiming her legs hurt although there is no overt deformity to exam or large joint effusions We will follow the above-listed care plan a likely anticipate discharge in Documented By: Alton Hernandez (Alton Hernandez M.D.)
[2017-06-28 16:00] VITALS: BP 130/81; PULSE 65; TEMP 36; O2SAT 97
[2017-06-28] MEDS: CLONAZEPAM 0.5 MG TAB PO SCH (20:42)
[2017-06-28] MEDS: TRAZODONE HCL 50 MG TAB PO SCH (20:43)
[2017-06-28] MEDS: ATORVASTATIN 10 MG TAB PO SCH (20:43)
[2017-06-28] MEDS ORDERED: PRAZOSIN HCL 1 MG CAP PO SCH (21:00)
[2017-06-29 01:29] VITALS: BP 174/86; PULSE 70; TEMP 36.8; O2SAT 97
[2017-06-29 05:02] VITALS: BP 135/74; PULSE 59; O2SAT 98
[2017-06-29 05:59] LABS: HEMATOCRIT 31.1 % (37-47); HEMOGLOBIN 9.8 g/dL (12.0-16.0); MEAN CELL VOLUME 88.6 fL (80-100); MEAN CORPUSCULAR HEMOGLOBIN 27.9 pg (25-34); MEAN CORPUSCULAR HGB CONC 31.5 g/dl (32-36); MEAN PLATELET VOLUME 9.7 fL (7.4-10.4); PLATELET COUNT 181 K/uL (130-400); RED CELL DISTRIBUTION WIDTH CV 16.1 % (11.5-14.5); RED CELL DISTRIBUTION WIDTH SD 51.4 fL (36.4-46.3); WHITE BLOOD COUNT 6.54 K/uL (4.8-10.8)
[2017-06-29 06:31] LABS: CALCIUM 8.5 mg/dl (8.5-10.1); CREATININE 0.92 mg/dl (0.60-1.20)
[2017-06-29] MEDS: DICLOFENAC SOD 1% GEL 100 GM TUBE EXT SCH (07:44)
[2017-06-29] MEDS: SENNA 8.6 MG TAB PO SCH (07:44)
[2017-06-29] MEDS: ASPIRIN 81 MG ECTAB PO SCH (07:44)
[2017-06-29] MEDS: RIVASTIGMINE TARTRATE (EXELON) 1.5 MG CAP PO SCH (07:44)
[2017-06-29] MEDS: CLONAZEPAM 0.5 MG TAB PO SCH (07:44)
[2017-06-29] MEDS: RISPERIDONE 0.5 MG TAB PO SCH (07:44)
[2017-06-29] MEDS: METOPROLOL TARTRATE 25 MG TAB PO SCH (07:44)
[2017-06-29] MEDS: LACTOBACILLUS ACIDOPHILUS (FLORANEX) TAB PO SCH ×3 (07:44→17:03)
[2017-06-29] MEDS: DOCUSATE SODIUM 100 MG CAP PO SCH (07:44)
[2017-06-29] MEDS: LIDODERM (LIDOCAINE) PATCH 5% TD SCH ×2 (07:45)
[2017-06-29 08:00] VITALS: O2SAT 99
[2017-06-29] MEDS: HEPARIN SOD 5000 UNIT/0.5 ML CARP SQ SCH (09:42)
[2017-06-29 14:29] VITALS: BP 149/80; PULSE 85; TEMP 36.4; O2SAT 98
[2017-06-29] MEDS ORDERED: LORA-741 PO (14:40)
[2017-06-29] MEDS ORDERED: KLN5 PO (14:40)
[2017-06-29] MEDS ORDERED: CLB100 PO (14:40)
[2017-06-29] MEDS ORDERED: PRZ1 PO (14:40)
[2017-06-29 14:48] VITALS: BP 149/80; PULSE 85; TEMP 36.4; O2SAT 98
[2017-06-29 15:59] VITALS: BP 137/70; PULSE 62; O2SAT 93
--- NOTE | 2017-06-29 19:29 | Discharge Summary ---
Discharge Summary Date of Service Jun 29, 2017. Discharge Summary Admission Date: Jun 22, 2017 at 18:27 Discharge Date: Jun 29, 2017 Discharge Disposition: halfway facility Principal Diagnosis: dementia with psychosis bilateral knee pain Immunizations: Have You Had Influenza Vaccine: Yes Influenza Vaccine Date: Apr 01, 2011 History of Tetanus Vaccine?: utd Tetanus Immunization Date: Mar 30, 2009 History of Pneumococcal: Yes Pneumococcal Date: Apr 02, 2011 History of Hepatitis B Vaccine: Unknown Medication Reconciliation New Medications: Celecoxib (Celebrex) 100 Mg Cap 1 CAP PO BID for 30 Days, #60 CAP 3 Refills Clonazepam (Clonazepam) 0.5 Mg Tab 0.5 MG PO BID, #60 TAB Prazosin HCl (Prazosin HCl) 1 Mg Cap 2 MG PO HS, #30 CAP Continued Medications: Aspirin (Aspirin Ec) 81 Mg Tab 81 MG PO DAILY Atorvastatin (Lipitor) 10 Mg Tab 10 MG PO HS, TAB Cholecalciferol (Vitamin D3) 2,000 Unit Tab 2000 MG PO DAILY, TAB Diclofenac Sodium (Topical) (Voltaren 1% Top Gel) 1 % Gel 1 APPLN TOP BID TO KNEES Docusate Sodium (Colace) 100 Mg Cap 100 MG PO BID, CAP Lactobacillus Acidophilus (Lactinex) Tab 1 TAB PO TIDM, TAB Lidocaine (Lidocaine) 1 Patch Tdsy 1 PATCH TOP ONAMOFFPM Lorazepam (Ativan) 0.5 Mg Tab 0.5 MG PO UD PRN for Anxiety, #30 TAB (This prescription has been renewed) Metoprolol Tartrate (Lopressor) (Lopressor) 25 Mg Tab 12.5 MG PO BID, TAB Polyethylene Glycol 3350 (Miralax) 1 Pow Pow 17 GM PO DAILY PRN for Constipation, GM Risperidone (Risperidone) 0.5 Mg Tab 0.5 MG PO BID Rivastigmine Tartrate (Exelon) 1.5 Mg Cap 1.5 MG PO BID, CAP Senna (Senokot) 8.6 Mg Tab 8.6 MG PO DAILY, TAB Trazodone Hcl (Trazodone) 50 Mg Tab 50 MG PO HS, TAB Discontinued Medications: Ciprofloxacin Tab (Cipro) 250 Mg Tab 250 MG PO BID for 3 Days, #6 TAB Lorazepam (Ativan) 0.5 Mg Tab 0.5 MG PO AMPM, TAB Discharge Exam Review of Systems: Constitutional: No fever, No chills Cardiovascular: No chest pain, No edema Abdomen: No pain, No nausea, No vomiting, No diarrhea Psychiatric: + depression symptoms, + anhedonism, + anxiety Physical Exam: General Appearance: WD/WN, + mild distress Eyes: PERRL, EOMI Respiratory/Chest: chest non-tender, lungs clear, normal breath sounds Neurologic/Psychiatric: + depressed affect, + disoriented Hospital Course This patient is in about her usual state fairly anxious and crying out at times being home there is much discussion with family today as he's had every day this really revolves around a total of or as the family does not believe that her mental status from progression of her dementia but more from a somatic issues such as her knee pain there focused on this and that they feel if her knee pain is addressed and her medications adjusted correctly they'll be glad to take her home He becomes clear that the son wishes for a orthopedic evaluation for possible injections of her knees to relieve knee pain which he perceives as her barrier to ambulating. Dr. Cisneros's office did agree to see her and possibly inject the synthetic viscus solution into her knees to try to help with her pain this needs to be arranged at the half-way The son also requests possible second opinion from a geriatric psychiatric person such as Dr. Galloway which could be also arranged as an outpatient The son also request a secondary evaluation by nestor lee for possible inpatient [facility] they denied his request for inpatient services Patient will be return to [facility] with institution of daily clonazepam with when necessary Ativan to try to help her anxious crying spells continuing her usual home medications of Exelon trazodone Risperdal with continued psychiatric oversight Documented By: Alton Hernandez Total Time Spent: Greater than 30 minutes This includes examination of the patient, discharge planning, medication reconciliation, and communication with other providers. Discharge Instructions Please refer to the electronic Patient Visit Report (Discharge Instructions) for additional information.
== END 2017-06-29 18:30 | DRG 640 ==
LOC: C.EDB 10:12 → C.2E 20:41 → ENRESERV 20:52 → C.4E 06-21 18:12 → OBSVTOIN 06-22 18:27
PROVIDERS: ADMIT Internal Medicine; ATTEND Internal Medicine
DX: E86.0 Dehydration (principal); G93.41 Metabolic encephalopathy; N39.0 Urinary tract infection, site not specified; F03.90 Unspecified dementia, unspecified severity, without behavioral disturbance, psychotic disturbance, mood disturbance, and anxiety; I35.0 Nonrheumatic aortic (valve) stenosis; Z86.718 Personal history of other venous thrombosis and embolism; T43.505A Adverse effect of unspecified antipsychotics and neuroleptics, initial encounter; Z86.73 Personal history of transient ischemic attack (TIA), and cerebral infarction without residual deficits; Z82.49 Family history of ischemic heart disease and other diseases of the circulatory system; R53.1 Weakness; R41.82 Altered mental status, unspecified; I10 Essential (primary) hypertension; I67.9 Cerebrovascular disease, unspecified; B96.89 Other specified bacterial agents as the cause of diseases classified elsewhere; K59.00 Constipation, unspecified; M25.561 Pain in right knee; M25.562 Pain in left knee; R32 Unspecified urinary incontinence; R73.09 Other abnormal glucose; Z83.3 Family history of diabetes mellitus; Z88.8 Allergy status to other drugs, medicaments and biological substances; Y92.019 Unspecified place in single-family (private) house as the place of occurrence of the external cause

== ENCOUNTER → 2017-09-01 | Outpatient (CLI) | payer OTHER, BC ==
[~2017-09-01] MED LIST changes: -ATOR-22 PO; +ATOR10TA82 PO; -CEPH-571 PO; +CHOL20007 PO; -CHOL20009 PO; +CLB100 PO; +CLON0.5T3 PO; -COEN1CAP28 PO; -LDDP5 EX; +LDDP5 TOP; +LORA-741 PO; -LXP10 PO; -MAGN400T6 PO; -MOML PO; +PRAZ2CAP3 PO; -RISP-99 PO; +RISP0.5T4 PO; +RIVA1.5C6 PO; +SENN-61 PO; -TOLT2TAB9 PO; +TRAZ50TA35 PO
== END ==
LOC: C.LABCC 08:37
PROVIDERS: ATTEND Internal Medicine
DX: F41.9 Anxiety disorder, unspecified (principal); R45.1 Restlessness and agitation

== ENCOUNTER → 2017-09-15 | Outpatient (CLI) | payer OTHER, BC | LOC: C.LABCC 16:22 | PROVIDERS: ATTEND Internal Medicine | DX: N39.0 Urinary tract infection, site not specified (principal); R32 Unspecified urinary incontinence ==

== ENCOUNTER 2017-09-20 21:43 | Emergency (ER) | payer OTHER, BC ==
[2017-09-20 21:59] VITALS: TEMP 36.6
[2017-09-20] MEDS ORDERED: SODIUM CHLORIDE 0.9% 500ML 500 ML IV STA (22:08)
--- NOTE | 2017-09-20 22:20 | EMERGENCY ROOM VISIT NOTE ---
History Report prepared by Savita: Estevan Salgado Under the Supervision of: Dr. Douglas Wilburn M.D. First contact with patient: 22:06 Chief Complaint: LETHARGIC Stated Complaint: SEMI UNRESPONSIVE / [facility] Nursing Triage Summary: Patient arrives to ED via ALS transport. Patient was found at [facility] in her wheelchair and unresponsive. Patient would only respond to painful stimuli for [facility]. Patient arrives to ED and opened her eyes to verbal stimuli, but is not responding to questions. Patient asked to shake her head but patient does not follow command. Unable to assess orientation. Patient's vitals are WNL. Patient moving extremities, unable to verbalize pain. History of Present Illness The patient is an 81 year old female who presents to the Emergency Room with complaints of a resolved episode of unresponsiveness that occurred prior to arrival. The nurse states the patient was found in her chair unresponsive. She reports the nurse at [facility] had to sternal rub the patient in order for her to be arousable. The nurse notes the patient was arousable by calling her name loudly. The patient's son states she has been having a large amount of anxiety for the past few months. He reports her psychiatrist was trying to figure out the proper medication to give her for her agitation. The son notes she was prescribed Clonapam and it worked miracles on the patient. He states the patient was complaining about a burning sensation when she urinated. The son reports the patient had a test done that said she did not have a UTI. He notes she was given an antibiotic for her UTI - like symptoms, and it has not help. The son states she has been on an antibiotic for the past week. He notes the patient typically receives her Clonapam at 1900 and goes to sleep. The son states she is baseline and did not need to come to the ED. He reports the patient's psychologist said she has lost the ability to use her learning center when she had her second stroke, so she has typically been out of it. The son notes the patient is only able to walk during therapy. He states she walks very short distances for therapy and uses a walker. The [facility] reports [facility] He notes the patient 'went out of air ' and was not diagnosed with a seizure. The son denies a history of seizures and dementia. HPI limited secondary to the patient's dementia. Source of History: family (son) History Limited By: dementia Onset: SOLICITOR PATENT Quality: other (unresponsiveness) Timing: resolved Associated Symptoms: + urinary symptoms (burning with urination) Review of Systems ROS limited secondary to the patient's dementia. Past Medical & Surgical Medical Problems: (1) Anxiety (2) Aortic stenosis (3) blood clots (4) Chest pain (5) Confusion (6) CVA (7) Depressive disorder, not elsewhere classified (8) Diabetes (9) RIOS (generalized anxiety disorder) (10) Heart disease (11) Hip fracture (12) History of - tubal ligation (13) Hypertension (14) Kidney stone (15) Major depressive disorder, recurrent episode, unspecified (16) stomach problems (17) Stroke (18) Thumb laceration (19) Unresponsive episode (20) Unspecified dementia without behavioral disturbance (21) UTI (urinary tract infection) (22) Weakness Surgical Problems: (1) H/O: hysterectomy Family History Diabetes mellitus FH: heart disease Hypertension Social History Smoking Status: Unknown if Ever Smoked Alcohol Use: none Drug Use: none Marital Status: Housing Status: lives with family Occupation Status: retired Current/Historical Medications Scheduled Aspirin (Aspirin Ec), 81 MG PO DAILY Atorvastatin (Lipitor), 10 MG PO HS Azithromycin (Zithromax), 250 MG PO DAILY Cefdinir (Omnicef), 300 MG PO Q12H Celecoxib (Celebrex), 100 MG PO BID Cholecalciferol (Vitamin D3), 2,000 MG PO DAILY Clonazepam (Klonopin), 0.5 MG PO DAILY Diclofenac Sodium (Topical) (Voltaren 1% Top Gel), 1 APPLN TOP BID Docusate Sodium (Colace), 100 MG PO BID Lactobacillus Acidophilus (Lactinex), 1 TAB PO TIDM Lidocaine (Lidocaine), 1 PATCH TOP ONAMOFFPM Metoprolol Tartrate (Lopressor) (Lopressor), 12.5 MG PO BID Prazosin Hcl (Prazosin), 2 MG PO BID Risperidone (Risperidone), 0.5 MG PO BID Rivastigmine Tartrate (Exelon), 1.5 MG PO BID Senna (Senokot), 8.6 MG PO DAILY Trazodone Hcl (Trazodone), 50 MG PO HS Scheduled PRN Acetaminophen (Tylenol), 650 MG PO Q6H PRN for MILD PAIN/FEVER Lorazepam (Ativan), 0.5 MG PO DAILY PRN for Anxiety Polyethylene Glycol 3350 (Miralax), 17 GM PO DAILY PRN for Constipation Allergies Coded Allergies: Enalapril (Verified Allergy, Unknown, Unknown, 06/20/17) Escitalopram (Verified Adverse Reaction, Unknown, Hallucinations, 06/20/17) Physical Exam Vital Signs Date Time Temp Pulse Resp B/P (MAP) Pulse Ox O2 Delivery O2 Flow Rate FiO2 09/21/17 00:51 88 16 121/61 97 Room Air 09/21/17 00:32 74 16 121/61 95 09/21/17 00:19 112/65 09/21/17 00:13 74 16 95 09/20/17 23:43 77 15 95 09/20/17 23:13 79 19 94 09/20/17 22:52 152/75 09/20/17 22:32 96 Room Air 09/20/17 22:13 79 18 96 09/20/17 21:59 36.6 79 16 129/73 97 Room Air 09/20/17 21:54 83 09/20/17 21:47 129/73 Physical Exam GENERAL: Awake, alert, chronically ill-appearing, in no distress. Arousable to loud voice. HENT: Normocephalic, atraumatic. Oropharynx has dry and cracked mucus membranes otherwise unremarkable. EYES: Normal conjunctiva. Sclera non-icteric. NECK: Supple. No nuchal rigidity. FROM. No JVD. RESPIRATORY: Clear to auscultation. CARDIAC: Regular rate, normal rhythm. Extremities warm and well perfused. Pulses equal. ABDOMEN: Soft, non-distended. No tenderness to palpation. No rebound or guarding. No masses. RECTAL: Deferred. MUSCULOSKELETAL: Chest examination reveals no tenderness. The back is symmetrical on inspection without obvious abnormality. There is no CVA tenderness to palpation. No joint edema. LOWER EXTREMITIES: Calves are equal size bilaterally and non-tender. No edema. No discoloration. NEURO: Normal sensorium. No sensory or motor deficits noted. Follows commands. Arousable to loud voice. SKIN: No rash or jaundice noted. Medical Decision & Procedures ER Provider Diagnostic Interpretation: Radiology results as stated below per my review and radiologist interpretation: HEAD WITHOUT CONTRAST (CT) CT DOSE: 1139.46 mGy.cm HISTORY: Altered mental status ams TECHNIQUE: Multiaxial CT images of the head were performed without the use of intravenous contrast. A dose lowering technique was utilized adhering to the principles of ALARA. Comparison: 07/09/2017 Findings: The paranasal sinuses and mastoid air cells are clear. Old right cerebral infarct. Considerable chronic small vessel change of the periventricular deep white matter regions. No evidence for acute intracranial hemorrhage. No midline shift. Impression: Old right cerebral infarct. Atrophy and considerable chronic small vessel change. No acute process. The above report was generated using voice recognition software. It may contain grammatical, syntax or spelling errors. Electronically signed by: Adrian Stevens M.D. 09/20/2017 10:53 PM Dictated Date/Time: 09/20/2017 10:52 PM CHEST ONE VIEW PORTABLE CLINICAL HISTORY: CHEST PAIN dyspnea COMPARISON STUDY: 06/20/2017 FINDINGS: Poorly defined minimal parenchymal infiltrate left base. Mild cardiomegaly. Prior median sternotomy. HISTORY: Volumes are diminished. Old fracture left humeral neck. IMPRESSION: 1. Mild cardiomegaly with a poorly defined superimposed infiltrate left base. The above report was generated using voice recognition software. It may contain grammatical, syntax or spelling errors. Electronically signed by: Adrian Stevens M.D. 09/20/2017 10:40 PM Dictated Date/Time: 09/20/2017 10:40 PM Laboratory Results 09/20/17 21:28 Red Blood Count 3.89, Mean Corpuscular Volume 87.1, Mean Corpuscular Hemoglobin 28.5, Mean Corpuscular Hemoglobin Concent 32.7, Mean Platelet Volume 9.7, Neutrophils (%) (Auto) 65.5, Lymphocytes (%) (Auto) 22.7, Monocytes (%) (Auto) 9.3, Eosinophils (%) (Auto) 1.8, Basophils (%) (Auto) 0.3, Neutrophils # (Auto) 4.82, Lymphocytes # (Auto) 1.67, Monocytes # (Auto) 0.68, Eosinophils # (Auto) 0.13, Basophils # (Auto) 0.02 09/20/17 21:28 Test 09/20/17 21:28 09/20/17 21:50 White Blood Count 7.35 K/uL (4.8-10.8) Red Blood Count 3.89 M/uL (4.2-5.4) Hemoglobin 11.1 g/dL (12.0-16.0) Hematocrit 33.9 % (37-47) Mean Corpuscular Volume 87.1 fL (80-100) Mean Corpuscular Hemoglobin 28.5 pg (25-34) Mean Corpuscular Hemoglobin Concent 32.7 g/dl (32-36) Platelet Count 151 K/uL (130-400) Mean Platelet Volume 9.7 fL (7.4-10.4) Neutrophils (%) (Auto) 65.5 % Lymphocytes (%) (Auto) 22.7 % Monocytes (%) (Auto) 9.3 % Eosinophils (%) (Auto) 1.8 % Basophils (%) (Auto) 0.3 % Neutrophils # (Auto) 4.82 K/uL (1.4-6.5) Lymphocytes # (Auto) 1.67 K/uL (1.2-3.4) Monocytes # (Auto) 0.68 K/uL (0.11-0.59) Eosinophils # (Auto) 0.13 K/uL (0-0.5) Basophils # (Auto) 0.02 K/uL (0-0.2) RDW Standard Deviation 44.1 fL (36.4-46.3) RDW Coefficient of Variation 13.9 % (11.5-14.5) Immature Granulocyte % (Auto) 0.4 % Immature Granulocyte # (Auto) 0.03 K/uL (0.00-0.02) Anion Gap 8.0 mmol/L (3-11) Estimated GFR () 60.9 Estimated GFR (Non- 52.5 BUN/Creatinine Ratio 25.1 (10-20) Calcium Level 8.9 mg/dl (8.5-10.1) Magnesium Level 1.8 mg/dl (1.8-2.4) Total Bilirubin 0.3 mg/dl (0.2-1) Direct Bilirubin mg/dl (0-0.2) Aspartate Amino Transf (AST/SGOT) 18 U/L (15-37) Alanine Aminotransferase (ALT/SGPT) 13 U/L (12-78) Alkaline Phosphatase 78 U/L (45-117) Troponin I < 0.015 ng/ml (0-0.045) Total Protein 6.8 gm/dl (6.4-8.2) Albumin 3.3 gm/dl (3.4-5.0) Lipase 164 U/L (73-393) Chemistry Specimen Hemolysis Urine Color YELLOW Urine Appearance CLOUDY (CLEAR) Urine pH 5.0 (4.5-7.5) Urine Specific [place] 1.024 (1.000-1.030) Urine Protein 1+ (NEG) Urine Glucose (UA) NEG (NEG) Urine Ketones NEG (NEG) Urine Occult Blood 2+ (NEG) Urine Nitrite POS (NEG) Urine Bilirubin NEG (NEG) Urine Urobilinogen NEG (NEG) Urine Leukocyte Esterase MODERATE (NEG) Urine WBC (Auto) >30 /hpf (0-5) Urine RBC (Auto) 10-30 /hpf (0-4) Urine Hyaline Casts (Auto) 10-30 /lpf (0-5) Urine Epithelial Cells (Auto) >30 /lpf (0-5) Urine Bacteria (Auto) 4+ (NEG) Urine Yeast (Auto) (NONE PRSENT) Laboratory results reviewed by me Medications Administered Medications (Trade) Dose Ordered Sig/Shaggy Route Start Time Stop Time Status Last Admin Dose Admin Sodium Chloride 500 ml @ 999 mls/hr Q31M STAT IV 09/20/17 22:08 09/20/17 22:38 DC 09/20/17 22:08 999 MLS/HR Ceftriaxone Sodium (Rocephin Inj) 1 gm NOW STAT IV 09/20/17 23:20 09/20/17 23:22 DC 09/20/17 23:20 1 GM Azithromycin 500 mg/Dextrose 255 ml @ 127.5 mls/ hr ONE STAT IV 09/21/17 00:03 09/21/17 01:38 DC 09/21/17 00:03 127.5 MLS/HR ECG Per My Interpretation Indication: altered mental status Rate (beats per minute): 82 Rhythm: normal sinus Findings: no acute ischemic change, left axis deviation, other (LVH) Comparison ECG Date: 06/20/17 Change: no significant change ED Course 2208: The patient was evaluated in room B07. A complete history and physical exam was performed. 2337: I reevaluated the patient and discussed her test results with her family. They verbalized agreement with the treatment plan and discharge instructions. The patient is ready for discharge. Medical Decision I reviewed the patient's past medical history, medications, and the nursing notes as described above. Differential diagnosis: Etiologies such as metabolic, infection, hypoglycemia, electrolyte abnormalities , cardiac sources, intracerebral event, toxicologic, neurologic, as well as others were entertained. The patient is an 81 y/o woman with a pmhx of CVA and recurrent UTIs who presents to the emergency department with decreased responsiveness after getting her daily Klonipin this afternoon for agitation and then going to sleep during her usual time per HPI. On arrival the patient is alert to loud voice and otherwise her baseline for late at night per family at the bedside. EKG unremarkable. CXR with ?left lower lobe infiltrate. UA positive for UTI. Prior cultures demonstrate mast-sensitive E-coli. BUN/Cr > 20 suggesting mild dehydration. Labs otherwise unremarkable including WBC wnl. CT head negative for acute findings. Patient given CTX. Patient too sleepy to take oral medications at this hour and so plan to begin Azithromycin in AM for additional coverage in addition to Cefdinir for possible PNA. Findings and plan for follow- up reviewed with family. Family agreeable and d/c'd per discharge instructions. Medication Reconcilliation Current Medication List: was personally reviewed by me Blood Pressure Screening Patient's blood pressure: Normal blood pressure Blood pressure disposition: Did not require urgent referral Impression Primary Impression: UTI (urinary tract infection) Additional Impression: Pneumonia Scribe Attestation The scribe's documentation has been prepared under my direction and personally reviewed by me in its entirety. I confirm that the note above accurately reflects all work, treatment, procedures, and medical decision making performed by me. Departure Information Dispostion Home / Self-Care Prescriptions Cefdinir (OMNICEF) 300 Mg Cap 300 MG PO Q12H for 10 Days, #20 CAP Prov: Douglas Wilburn M.D. 09/21/17 Azithromycin (Zithromax) 250 Mg Tab 250 MG PO DAILY, #6 TAB 2 tablets on day 1, 1 tablet days 2-5. Prov: Douglas Wilburn M.D. 09/21/17 Referrals LuanaJuarez (PCP) Patient Instructions ED Pneumonia Adult, ED UTI Cystitis Female, My [facility] Additional Instructions Please follow up with your providers tomorrow for re-evaluation. You were found to have a urinary tract infection and possibly also a pneumonia. Otherwise, your exam, EKG, chest xray, CT scan of your head, and lab results did not show signs of an emergent condition at this time. Cefdinir and azithromycin as directed. Drink plenty of fluids to ensure hydration. Avoid excessive sedation with your medications. Return to the emergency department for worsening symptoms as described in the accompanying instructions. Problem Qualifiers
[2017-09-20 22:21] LABS: BASO % 0.3 %; BASO ABS # 0.02 K/uL (0-0.2); EOS % 1.8 %; EOS ABS # 0.13 K/uL (0-0.5); HEMATOCRIT 33.9 % (37-47); HEMOGLOBIN 11.1 g/dL (12.0-16.0); IG# 0.03 K/uL (0.00-0.02); LYMPH % 22.7 %; LYMPH ABS # 1.67 K/uL (1.2-3.4); MEAN CELL VOLUME 87.1 fL (80-100); MEAN CORPUSCULAR HEMOGLOBIN 28.5 pg (25-34); MEAN CORPUSCULAR HGB CONC 32.7 g/dl (32-36); MEAN PLATELET VOLUME 9.7 fL (7.4-10.4); MONO % 9.3 %; MONO ABS # 0.68 K/uL (0.11-0.59); NEUT % 65.5 %; NEUT ABS # 4.82 K/uL (1.4-6.5); PLATELET COUNT 151 K/uL (130-400); RED CELL DISTRIBUTION WIDTH CV 13.9 % (11.5-14.5); RED CELL DISTRIBUTION WIDTH SD 44.1 fL (36.4-46.3); WHITE BLOOD COUNT 7.35 K/uL (4.8-10.8)
[2017-09-20 22:32] VITALS: O2SAT 96
--- NOTE | 2017-09-20 22:42 | DIAGNOSTIC IMAGING REPORT ---
CHEST ONE VIEW PORTABLE CLINICAL HISTORY: CHEST PAIN dyspnea COMPARISON STUDY: 06/20/2017 FINDINGS: Poorly defined minimal parenchymal infiltrate left base. Mild cardiomegaly. Prior median sternotomy. HISTORY: Volumes are diminished. Old fracture left humeral neck. IMPRESSION: 1. Mild cardiomegaly with a poorly defined superimposed infiltrate left base. The above report was generated using voice recognition software. It may contain grammatical, syntax or spelling errors. Electronically signed by: Adrian Stevens M.D. 09/20/2017 10:40 PM Dictated Date/Time: 09/20/2017 10:40 PM
[2017-09-20 22:47] LABS: ALBUMIN 3.3 gm/dl (3.4-5.0); ALKALINE PHOSPHATASE 78 U/L (45-117); ALT/SGPT 13 U/L (12-78); AST/SGOT 18 U/L (15-37); BLOOD UREA NITROGEN 25 mg/dl (7-18); CALCIUM 8.9 mg/dl (8.5-10.1); CARBON DIOXIDE 26 mmol/L (21-32); CREATININE 1.01 mg/dl (0.60-1.20); GLUCOSE 118 mg/dl (70-99); LIPASE 164 U/L (73-393); POTASSIUM 4.4 mmol/L (3.5-5.1); SODIUM 140 mmol/L (136-145); TOTAL PROTEIN 6.8 gm/dl (6.4-8.2)
--- NOTE | 2017-09-20 22:55 | DIAGNOSTIC IMAGING REPORT ---
HEAD WITHOUT CONTRAST (CT) CT DOSE: 1139.46 mGy.cm HISTORY: Altered mental status ams TECHNIQUE: Multiaxial CT images of the head were performed without the use of intravenous contrast. A dose lowering technique was utilized adhering to the principles of ALARA. Comparison: 07/09/2017 Findings: The paranasal sinuses and mastoid air cells are clear. Old right cerebral infarct. Considerable chronic small vessel change of the periventricular deep white matter regions. No evidence for acute intracranial hemorrhage. No midline shift. Impression: Old right cerebral infarct. Atrophy and considerable chronic small vessel change. No acute process. The above report was generated using voice recognition software. It may contain grammatical, syntax or spelling errors. Electronically signed by: Adrian Stevens M.D. 09/20/2017 10:53 PM Dictated Date/Time: 09/20/2017 10:52 PM
[2017-09-20] MEDS ORDERED: CEFTRIAXONE SOD INJ 1 GM ADDVIAL IV STA (23:20)
[2017-09-20] MEDS ORDERED: AZITHROMYCIN 250 MG TAB PO STA (23:20)
[2017-09-21] MEDS ORDERED: NURSING VERBAL MED ORDER ONE
[2017-09-21] MEDS ORDERED: AZITHROMYCIN 500 MG / D5W 250 ML IV STA ×2 (00:03)
[2017-09-21] MEDS ORDERED: AZIT250T PO (00:38)
[2017-09-21] MEDS ORDERED: CEFD300C2 PO (00:38)
[2017-09-21 00:51] VITALS: BP 121/61; PULSE 88; O2SAT 97
== END 2017-09-21 00:51 | disposition home or self-care (01) ==
LOC: EDBD 21:43 → C.EDB 21:44
DX: N39.0 Urinary tract infection, site not specified (principal); J18.9 Pneumonia, unspecified organism; R41.82 Altered mental status, unspecified; F41.9 Anxiety disorder, unspecified; F32.9 Major depressive disorder, single episode, unspecified; I35.0 Nonrheumatic aortic (valve) stenosis; E11.9 Type 2 diabetes mellitus without complications; I10 Essential (primary) hypertension; Z86.73 Personal history of transient ischemic attack (TIA), and cerebral infarction without residual deficits; Z79.82 Long term (current) use of aspirin; Z79.899 Other long term (current) drug therapy; Z88.8 Allergy status to other drugs, medicaments and biological substances

== ENCOUNTER 2018-09-13 17:00 | Inpatient (IN) ==
[2018-09-13] MEDS ORDERED: SODIUM CHLORIDE 0.9% 1000ML 1,000 ML IV ONE (18:35)
[2018-09-13] MEDS ORDERED: clonazePAM 0.5 MG TAB PO STA (18:36)
[2018-09-13 19:08] LABS: Basophils # (auto) 0.02 K/uL (0-0.2); Basophils % (auto) 0.3 %; Eosinophils # (auto) 0.16 K/uL (0-0.5); Eosinophils % (auto) 2.2 %; Hematocrit (blood only) 33.5 % (37-47); Hemoglobin 11.1 g/dL (12.0-16.0); Immature Granulocytes # (auto) 0.01 K/uL (0.00-0.02); Immature Granulocytes % (auto) 0.1 %; Lymphocytes # (auto) 1.74 K/uL (1.2-3.4); Lymphocytes % (auto) 23.8 %; Mean Corpuscular Hgb Conc 33.1 g/dL (32-36); Mean Corpuscular Volume 86.6 fL (80-100); Mean Platelet Volume 10.4 fL (7.4-10.4); Monocytes # (auto) 0.61 K/uL (0.11-0.59); Monocytes % (auto) 8.3 %; Neutrophils # (auto) 4.77 K/uL (1.4-6.5); Neutrophils % (auto) 65.3 %; Platelet Count 185 K/uL (130-400); RDW Coefficient of Variation 13.5 % (11.5-14.5); Red Blood Count 3.87 M/uL (4.2-5.4); White Blood Count 7.31 K/uL (4.8-10.8)
[2018-09-13 19:16] LABS: Appearance Urine Cloudy (Clear); Bacteria Urine Automated Negative (Negative); Bilirubin Urine Negative (Negative); Color Urine Dark Yellow; Epithelial Cell Urine Auto >30 /lpf (0-5); Glucose Urine UA Negative (Negative); Ketones Urine Trace (Negative); Leukocyte Esterase Urine 1+ (Negative); Nitrite Urine Negative (Negative); Protein Urine Negative (Negative); Specific Gravity Urine 1.025 (1.000-1.030); Urobilinogen Urine Negative (Negative); WBC Urine Automated >30 /hpf (0-5)
[2018-09-13 19:24] LABS: Alanine Aminotransferase 16 U/L (12-78); Albumin Level 3.3 gm/dl (3.4-5.0); Aspartate Aminotransferase 17 U/L (15-37); BUN Creatinine Ratio 25.8 (10-20); Blood Urea Nitrogen 28 mg/dl (7-18); Calcium 9.2 mg/dl (8.5-10.1); Carbon Dioxide 26 mmol/L (21-32); Chloride 110 mmol/L (98-107); Est GFR (African American) 55.1; Est GFR (Non-African American) 47.6; Glucose 124 mg/dl (70-99); Potassium 3.9 mmol/L (3.5-5.1); Sodium 141 mmol/L (136-145)
[2018-09-13 19:26] LABS: Alkaline Phosphatase 102 U/L (45-117); Bilirubin,Total 0.3 mg/dl (0.2-1); Globulin 3.3 gm/dl (2.5-4.0); Total Protein 6.6 gm/dl (6.4-8.2)
--- NOTE | 2018-09-13 19:42 | XRay Report ---
XR chest 1V portable CLINICAL HISTORY: ams dyspnea COMPARISON STUDY: 08/26/2018 FINDINGS: Mild stable cardiomegaly. Prior median sternotomy. Diaphragms are smooth. Lungs are clear. IMPRESSION: No acute process. The above report was generated using voice recognition software. It may contain grammatical, syntax or spelling errors. Electronically signed by: Adrian Stevens M.D. 09/13/2018 7:40 PM
--- NOTE | 2018-09-13 19:44 | CT Scan Report ---
CT head/brain wo con CT DOSE: 1458.88 mGy.cm HISTORY: Trauma. Mental status change. fall TECHNIQUE: Multiaxial CT images of the head were performed without the use of intravenous contrast. A dose lowering technique was utilized adhering to the principles of ALARA. Comparison: 08/26/2017 Findings: The paranasal sinuses and mastoid air cells are clear. Old bilateral infarcts. Age-related atrophy and chronic small vessel change. No acute intracranial abnormality. No evidence for midline shift. Impression: No acute intracranial abnormality. Pre-existing bilateral old infarcts as well as age-related atrophy The above report was generated using voice recognition software. It may contain grammatical, syntax or spelling errors. Electronically signed by: Adrian Stevens M.D. 09/13/2018 7:43 PM
[2018-09-13 19:49] LABS: Mucus Urine Present (None Prsent)
[2018-09-13] MEDS ORDERED: ERTAPENEM SODIUM 500 MG in SYRINGE 0 ML IV STA (19:54)
[2018-09-13] MEDS ORDERED: LORazepam 1 MG TAB SL STA (19:57)
[2018-09-13] MEDS ORDERED: SODIUM CHLORIDE 0.9% 500 ML IV ONE (19:57)
[2018-09-13] MEDS ORDERED: ERTAPENEM SODIUM 1,000 MG in SODIUM CHLORIDE 0.9% 50 ML IV ONE (20:00)
--- NOTE | 2018-09-13 21:28 | History & Physical Report ---
Date of Service September 13, 2018 Assessment & Plan (1) Infection due to ESBL-producing Escherichia coli: ESBL producing E. coli urinary tract infection-- From urine specimen dated 08/26/2018 ED presentation. Had initially been prescribed Cefdinir, which had been taken for 2 days prior to culture results. Patient completed Macrobid 100 mg p.o. twice daily for 7 days. Patient has had continued change in usual baseline dementia mental status, with increased motor activity and restlessness. Started on ertapenem in the ED. Continue ertapenem 1 g IV every 24 hours. There are no oral agents otherwise available to treat. We will consult infectious disease to follow. Her POA son is aware that the patient may require IV antibiotics in the outpatient setting after discharge from hospital. Place on IV fluids. May require Sears catheter. Full sensitivities to this bacteria include: Ertapenem, Zosyn, imipenem, amikacin and Macrobid. Present on Admission?: Yes (2) Acute UTI: See above Present on Admission?: Yes (3) Dementia with behavioral disturbance: Dementia with altered mental status/behavior disturbance manifest as in creased restlessness and attempt to get up out of bed. Place with one on one observation. Follow response to IV antibiotics. If able to take oral medications, will continue usual medications of aspirin, atorvastatin, Celebrex, clonazepam, risperidone, Rivastigmine tartrate. Present on Admission?: Yes (4) Altered mental status: See above. Present on Admission?: Yes (5) Hypertension: Continue metoprolol tartrate. Present on Admission?: Yes (6) Hyperlipidemia: Continue atorvastatin. Present on Admission?: Yes (7) Urinary incontinence due to cognitive impairment: Continue Myrbetriq 50 mg ER Present on Admission?: Yes History of Present Illness Chief Complaint: The patient is brought to the emergency department by family, due to worsening confusion, increased sleeplessness, and increased restlessness over the past few weeks. Primary Care Provider: Aurora Javier MD The patient is an 82-year-old female initially seen in the emergency department on 08/26/2018, and prescribed cefdinir twice daily for presumptive UTI. On 08/28/2018, the urine culture grew ESBL E. coli, and antibiotics at that time were changed by the ED to Macrobid 100 mg p.o. twice daily for 7 days. Family has noted that the patient continues to have sleeplessness, and increased restlessness and tendencies to try to get up out of bed worsening over the past several days. During this time, her usual medications of Klonopin are not helping her sleep. Allergies Allergy/AdvReac Type Severity Reaction Status Date / Time enalapril Allergy Intermediate Cough Verified 09/13/18 18:49 escitalopram AdvReac Intermediate Hallucinati Verified 09/13/18 18:49 ons Home Medications Home Medications Medication Instructions Recorded Confirmed Type aspirin 81 mg PO QAM 04/04/18 09/13/18 History atorvastatin 10 mg PO QAM 04/04/18 09/13/18 History celecoxib 100 mg PO PM 04/04/18 09/13/18 History cholecalciferol (vitamin D3) 2,000 units PO HS 04/04/18 09/13/18 History [Vitamin D3] clonazepam 0.5 mg PO PM 04/04/18 09/13/18 History diclofenac sodium [Voltaren] 1 applic TOPICAL QID PRN 04/04/18 09/13/18 History docusate sodium 100 mg PO BID PRN 04/04/18 09/13/18 History lorazepam 0.5 mg PO DAILY PRN 04/04/18 09/13/18 History metoprolol tartrate 25 mg PO QAM 04/04/18 09/13/18 History mirabegron [Myrbetriq] 50 mg PO HS 04/04/18 09/13/18 History nystatin [Nystop] 1 applic TOPICAL TID PRN 04/04/18 09/13/18 History nystatin-triamcinolone 1 applic TOPICAL BID 04/04/18 09/13/18 History risperidone 0.25 mg PO TIDM 04/04/18 09/13/18 History rivastigmine tartrate 1.5 mg PO QAM 04/04/18 09/13/18 History tramadol 50 mg PO Q24H PRN 04/04/18 09/13/18 History triamcinolone acetonide 1 applic TOPICAL BID 04/04/18 09/13/18 History Medical Marijuana 1 applic SUBLINGUAL HS 08/26/18 09/13/18 History acetaminophen [Tylenol Extra 500 mg PO Q6H PRN 08/26/18 09/13/18 History Strength] methenamine hippurate 1 ophthalmic insert PO PM 08/26/18 09/13/18 History Past Med/Surg History Social History Preferred Language: [place] Feels Safe at Home: Yes Smoking Status: Never smoker Review of Systems Review of Systems: Review of systems and HPI are as per family reports, as the patient herself has baseline dementia and is unable to contribute. Physical Exam Physical Exam: The patient is awake, restless, in continual motion, trying to get up of the bed, normocephalic and atraumatic, and otherwise in no acute distress. HEENT--PERRL, mucous membranes and oropharynx dry. Neck--supple. No JVD. No bruits. Thyroid normal, trachea midline, no adenopathy. Heart--normal S1 and S2. No murmurs, rubs or gallops. Lungs--clear bilaterally, no respiratory distress, no accessory muscle use. Abdomen--normal bowel sounds and soft. Nontender. Nondistended. Extremities--no cyanosis or clubbing. No edema. There are good distal pulses b/l. Dermatologic--normal skin turgor, normal color, no abnormal lymph nodes, no r luke. Neurologic--cranial nerves II through XII grossly intact. Rheumatologic--normal range of motion. Psychiatric--flat affect, nonresponsive. Results & Data Vital Signs (Past 12 Hours) Vital Signs Temp Pulse Pulse Resp BP BP Pulse Ox 09/13/18 21:25 78 20 148/79 H 96 09/13/18 20:31 78 22 167/90 H 96 09/13/18 19:01 74 20 113/72 97 09/13/18 18:15 96 09/13/18 17:06 98.6 F 76 22 93/57 L 96 Laboratory Results Laboratory Results WBC 7.31 K/uL (4.8-10.8) 09/13/18 18:43 RBC 3.87 M/uL (4.2-5.4) L 09/13/18 18:43 Hgb 11.1 g/dL (12.0-16.0) L 09/13/18 18:43 Hct 33.5 % (37-47) L 09/13/18 18:43 MCV 86.6 fL (80-100) 09/13/18 18:43 MCH 28.7 pg (25-34) 09/13/18 18:43 MCHC 33.1 g/dL (32-36) 09/13/18 18:43 RDW Std Deviation 43.0 fL (36.4-46.3) 09/13/18 18:43 RDW Coeff of [place] 13.5 % (11.5-14.5) 09/13/18 18:43 Plt Count 185 K/uL (130-400) 09/13/18 18:43 MPV 10.4 fL (7.4-10.4) 09/13/18 18:43 Immature Gran % (Auto) 0.1 % 09/13/18 18:43 Neut % (Auto) 65.3 % 09/13/18 18:43 Lymph % (Auto) 23.8 % 09/13/18 18:43 [place] % (Auto) 8.3 % 09/13/18 18:43 Eos % (Auto) 2.2 % 09/13/18 18:43 Baso % (Auto) 0.3 % 09/13/18 18:43 Immature Gran # (Auto) 0.01 K/uL (0.00-0.02) 09/13/18 18:43 Neut # (Auto) 4.77 K/uL (1.4-6.5) 09/13/18 18:43 Lymph # (Auto) 1.74 K/uL (1.2-3.4) 09/13/18 18:43 [place] # (Auto) 0.61 K/uL (0.11-0.59) H 09/13/18 18:43 Eos # (Auto) 0.16 K/uL (0-0.5) 09/13/18 18:43 Baso # (Auto) 0.02 K/uL (0-0.2) 09/13/18 18:43 Sodium 141 mmol/L (136-145) 09/13/18 18:43 Potassium 3.9 mmol/L (3.5-5.1) 09/13/18 18:43 Chloride 110 mmol/L (98-107) H 09/13/18 18:43 Carbon Dioxide 26 mmol/L (21-32) 09/13/18 18:43 Anion Gap 5.0 (3-11) 09/13/18 18:43 BUN 28 mg/dl (7-18) H 09/13/18 18:43 Creatinine 1.09 mg/dl (0.6-1.2) 09/13/18 18:43 Est Cr Clr Drug Dosing Not Reportable 09/13/18 18:43 Est GFR ( Amer) 55.1 09/13/18 18:43 Est GFR (Non-Af Amer) 47.6 09/13/18 18:43 BUN/Creatinine Ratio 25.8 (10-20) H 09/13/18 18:43 Glucose 124 mg/dl (70-99) H 09/13/18 18:43 Calcium 9.2 mg/dl (8.5-10.1) 09/13/18 18:43 Total Bilirubin 0.3 mg/dl (0.2-1) 09/13/18 18:43 AST 17 U/L (15-37) 09/13/18 18:43 ALT 16 U/L (12-78) 09/13/18 18:43 Alkaline Phosphatase 102 U/L (45-117) 09/13/18 18:43 Total Protein 6.6 gm/dl (6.4-8.2) 09/13/18 18:43 Albumin 3.3 gm/dl (3.4-5.0) L 09/13/18 18:43 Globulin 3.3 gm/dl (2.5-4.0) 09/13/18 18:43 Albumin/Globulin Ratio 1.0 (0.9-2) 09/13/18 18:43 Lipase 133 U/L (73-393) 09/13/18 18:43 Urine Color Dark Yellow 09/13/18 19:00 Urine Appearance Cloudy (Clear) H 09/13/18 19:00 Urine pH 5.0 (4.5-7.5) 09/13/18 19:00 Ur Specific [place] 1.025 (1.000-1.030) 09/13/18 19:00 Urine Protein Negative (Negative) 09/13/18 19:00 Urine Glucose (UA) Negative (Negative) 09/13/18 19:00 Urine Ketones Trace (Negative) H 09/13/18 19:00 Urine Blood Negative (Negative) 09/13/18 19:00 Urine Nitrite Negative (Negative) 09/13/18 19:00 Urine Bilirubin Negative (Negative) 09/13/18 19:00 Urine Urobilinogen Negative (Negative) 09/13/18 19:00 Ur Leukocyte Esterase 1+ (Negative) H 09/13/18 19:00 Urine WBC (Auto) >30 /hpf (0-5) H 09/13/18 19:00 Urine RBC (Auto) 0-4 /hpf (0-4) 09/13/18 19:00 U Hyaline Cast (Auto) 5-10 /lpf (0-5) H 09/13/18 19:00 U Epithel Cells (Auto) >30 /lpf (0-5) H 09/13/18 19:00 Urine Bacteria (Auto) Negative (Negative) 09/13/18 19:00 Ur Renal Epithelial Cell Not Reportable 09/13/18 19:00 Urine Mucus Present (None Prsent) H 09/13/18 19:00 Diagnostic Findings [place], [place] [phone] CT Scan Report Patient: RADHA FARRELL Date: 09/13/18 MR#: [id number]: [address] [facility] Acct ID:[id number]: Date: 1935City Zip: [place] [address] Age: 82Location: ED Sex: F Room/Bed: Att Phy: Diagnosis: UTI Karin Phy: RV. Sharad, MDService Date: 09/13/18 Fam Phy: Braulio Viveros MD, UrologyInterpreting Phy: Adrian Stevens MD Admit Phy: Ordering Phy: Joey Lee DO cc: ~ CT head/brain wo con CT DOSE: 1458.88 mGy.cm HISTORY: Trauma. Mental status change. fall TECHNIQUE: Multiaxial CT images of the head were performed without the use of intravenous contrast. A dose lowering technique was utilized adhering to the principles of ALARA. Comparison: 08/26/2017 Findings: The paranasal sinuses and mastoid air cells are clear. Old bilateral infarcts. Age-related atrophy and chronic small vessel change. No acute intracranial abnormality. No evidence for midline shift. Impression: No acute intracranial abnormality. Pre-existing bilateral old infarcts as well as age-related atrophy The above report was generated using voice recognition software. It may contain grammatical, syntax or spelling errors. Electronically signed by: Adrian Stevens M.D. 09/13/2018 7:43 PM Dictated: 09/13/181941 Transcribed: 09/13/181941 [facility], [place] [phone] XRay Report Patient: RADHA FARRELL Date: 09/13/18 MR#: [id number]: [address] [facility] Acct ID:[id number]: Date: [address] Zip: [place] [address] Age: 82Location: ED Sex: F Room/Bed: Att Phy: Diagnosis: UTI Karin Phy: RV. Sharad, MDService Date: 09/13/18 Fam Phy: Braulio Viveros MD, UrologyInterpreting Phy: Adrian Stevens MD Admit Phy: Ordering Phy: Joey Lee, cc: ~ XR chest 1V portable CLINICAL HISTORY: ams dyspnea COMPARISON STUDY: 08/26/2018 FINDINGS: Mild stable cardiomegaly. Prior median sternotomy. Diaphragms are smooth. Lungs are clear. IMPRESSION: No acute process. The above report was generated using voice recognition software. It may contain grammatical, syntax or spelling errors. Electronically signed by: Adrian Stevens M.D. 09/13/2018 7:40 PM Dictated: 09/13/181939 Transcribed: 09/13/181939 Code Status & VTE Plan Code Status DO NOT RESUSCITATE/DO NOT INTUBATE. VTE Prophylaxis Plan VTE Prophylaxis will be ordered: Yes (1) Altered mental status Altered mental status type: unspecified Qualified Code(s): R41.82 - Altered mental status, unspecified
[2018-09-13] MEDS ORDERED: POLYETHYLENE (MIRALAX) 17 GM PACK PO PRN (22:19)
[2018-09-13] MEDS ORDERED: ACETAMINOPHEN 500 MG TAB PO PRN (22:19)
[2018-09-13] MEDS ORDERED: ONDANSETRON INJ 2 MG/ML 2 ML VIAL IV PRN (22:19)
[2018-09-13] MEDS ORDERED: ACETAMINOPHEN 1000 MG/100 ML IV IV PRN (22:19)
[2018-09-13] MEDS ORDERED: DOCUSATE SODIUM 100 MG CAP PO PRN (22:19)
[2018-09-13] MEDS: NSS + 20MEQ KCL 20 MEQ/1,000 ML BAG IV SCH (23:08)
--- NOTE | 2018-09-14 01:07 | Emergency Department Note ---
Entered by Cameron Nicole acting as a scribe for History of Present Illness General Chief complaint: Urinary Symptoms Stated complaint: UTI Source: family History of Present Illness Provider complaint: Altered mental status Onset (ago): week(s) 2 Location: head Radiation: non-radiation Severity: similar to prior episodes Pain Consistency: + intermittent Relieved By: + none Exacerbated By: + none Associated symptoms: + confusion and + other (Throat pain) The patient is an 82 year old female who presents to the Emergency Room with complaints of intermittent altered mental status that has persisted over the past 2 weeks, per the family. They state she was here 2-3 weeks ago with a UTI and 2 days after finishing her medication she became altered. They report that she is more restless than normal and she will not stay in bed. Typically they give her a Klonopin and she calms down but the medication is not working. Per the family, she also has some throat pain and is confused. She does not know where she is or what year it is. The family contacted Dr. Viveros's office and was told to come to the ED. Her last bowel movement was yesterday and it was normal. She has not had any recent falls or head trauma. The patient does have a history of a stroke that occurred 5 years ago, which she still has deficits from. The patient is a DNR. Home Medications Home Medications Medication Instructions Recorded Confirmed Type aspirin 81 mg PO QAM 04/04/18 09/13/18 History atorvastatin 10 mg PO QAM 04/04/18 09/13/18 History celecoxib 100 mg PO PM 04/04/18 09/13/18 History cholecalciferol (vitamin D3) 2,000 units PO HS 04/04/18 09/13/18 History [Vitamin D3] clonazepam 0.5 mg PO PM 04/04/18 09/13/18 History diclofenac sodium [Voltaren] 1 applic TOPICAL QID PRN 04/04/18 09/13/18 History docusate sodium 100 mg PO BID PRN 04/04/18 09/13/18 History lorazepam 0.5 mg PO DAILY PRN 04/04/18 09/13/18 History metoprolol tartrate 25 mg PO QAM 04/04/18 09/13/18 History mirabegron [Myrbetriq] 50 mg PO HS 04/04/18 09/13/18 History nystatin [Nystop] 1 applic TOPICAL TID PRN 04/04/18 09/13/18 History nystatin-triamcinolone 1 applic TOPICAL BID 04/04/18 09/13/18 History risperidone 0.25 mg PO TIDM 04/04/18 09/13/18 History rivastigmine tartrate 1.5 mg PO QAM 04/04/18 09/13/18 History tramadol 50 mg PO Q24H PRN 04/04/18 09/13/18 History triamcinolone acetonide 1 applic TOPICAL BID 04/04/18 09/13/18 History Medical Marijuana 1 applic SUBLINGUAL HS 08/26/18 09/13/18 History acetaminophen [Tylenol Extra 500 mg PO Q6H PRN 08/26/18 09/13/18 History Strength] methenamine hippurate 1 ophthalmic insert PO PM 08/26/18 09/13/18 History Allergies Allergy/AdvReac Type Severity Reaction Status Date / Time enalapril Allergy Intermediate Cough Verified 09/13/18 18:49 escitalopram AdvReac Intermediate Hallucinati Verified 09/13/18 18:49 ons Past Med/Surg History Social History Preferred Language: [place]an Feels Safe at Home: Yes Smoking Status: Never smoker Review of Systems See HPI for pertinent positives & negatives. and A total of 10 systems reviewed and were otherwise negative Physical Exam Vital Signs Vital Signs - 24 hr 09/13/18 17:06 09/13/18 18:15 09/13/18 19:01 Temperature 37.0 C Temperature Source Oral Sepsis Recent Fever Within 48 Hours No Sepsis New/Unexplained Change in Mental Status Yes Sepsis Action Taken by Nursing No Action Required Pulse Rate 76 Pulse Rate [Finger] 74 Respiratory Rate 22 20 Respiratory Effort / Characteristics Non-Labored Spontaneous Blood Pressure 93/57 L Blood Pressure [Right Arm] 113/72 Blood Pressure Mean 69 Blood Pressure Mean [Right Arm] 85 Blood Pressure Position Sitting Pulse Oximetry 96 96 97 Oxygen Delivery Method Room Air Room Air Room Air 09/13/18 20:31 09/13/18 21:25 09/13/18 21:54 Temperature Temperature Source Sepsis Recent Fever Within 48 Hours Sepsis New/Unexplained Change in Mental Status Sepsis Action Taken by Nursing Pulse Rate Pulse Rate [Finger] 78 78 Respiratory Rate 22 20 Respiratory Effort / Characteristics Blood Pressure Blood Pressure [Right Arm] 167/90 H 148/79 H Blood Pressure Mean Blood Pressure Mean [Right Arm] 115 102 Blood Pressure Position Pulse Oximetry 96 96 Oxygen Delivery Method Room Air Room Air Room Air GENERAL: Lying in bed intermittently trying to get up, alert, well appearing, well nourished, no distress, non-toxic EYE EXAM: normal conjunctiva. OROPHARYNX: no exudate, no erythema, lips, buccal mucosa, and tongue normal and mucous membranes are moist NECK: supple, no nuchal rigidity, no adenopathy, non-tender LUNGS: Clear to auscultation. Normal chest wall mechanics HEART: no murmurs, S1 normal and S2 normal ABDOMEN: abdomen soft, non-tender, normo-active bowel, sounds, no masses, no rebound or guarding. BACK: Back is symmetrical on inspection and there is no deformity, no midline tenderness, no CVA tenderness. SKIN: no rashes and no bruising UPPER EXTREMITIES: upper extremities are grossly normal. LOWER EXTREMITIES: No pitting edema. NEURO EXAM: Awake, alert, non verbal, intermittently moaning and following commands and trying to get up from bed. Course ED COURSE: Vital signs were reviewed and showed hypotension. The patients medical record was reviewed The above diagnostic studies were performed and reviewed. ED treatments and interventions as stated above. 1827: The patient was evaluated in room B05. A complete history and physical examination was performed. 1956: Upon reevaluation, the patient is resting in bed. I discussed my findings with the patient and family. They understand and agree with the treatment plan. 2034: I spoke to [facility] Tom [facility] about the patient's case and he is going to accept her for further evaluation. Based on the patients age, coexisting illnesses, exam and lab findings the decision to treat as an inpatient was made. The patient remained stable while under my care. The patient will be evaluated for further management. Consultations Consultation #1: I spoke to Dr. Tom Torres [facility] Elsie about the patient's case and he is going to accept her for further evaluation. Time: 20:35 Administered Medications Potassium Chloride/Sodium Chloride (Normal Saline W/20 Meq Kcl) 20 meq in 1,000 mls @ 100 mls/hr IV .Q10H SURJIT Stop: 10/13/18 22:18 Last Admin: 09/13/18 23:08 Dose: 100 mls/hr Documented by: [id number] Discontinued Medications Clonazepam (Klonopin) 0.5 mg PO NOW STA Stop: 09/13/18 18:37 Last Admin: 09/13/18 18:58 Dose: 0.5 mg Documented by: [id number] Sodium Chloride (Nss 1000ml) 1,000 mls @ 999 mls/hr IV .Q1H1M ONE Stop: 09/13/18 19:35 Last Infusion: 09/13/18 19:52 Dose: 0 mls/hr Documented by: [id number] Admin: 09/13/18 18:58 Dose: 999 mls/hr Documented by: [id number] Sodium Chloride (Nss) 500 mls @ 999 mls/hr IV .Q31M ONE Stop: 09/13/18 20:27 Last Infusion: 09/13/18 20:47 Dose: 0 mls/hr Documented by: [id number] Admin: 09/13/18 20:21 Dose: 999 mls/hr Documented by: [id number] Ertapenem 1,000 mg/ Sodium (Chloride) 60 mls @ 100 mls/hr IV NOW ONE Stop: 09/13/18 20:35 Last Infusion: 09/13/18 20:56 Dose: 0 mls/hr Documented by: [id number] Admin: 09/13/18 20:24 Dose: 100 mls/hr Documented by: [id number] Lorazepam (Ativan) 1 mg SL NOW STA Stop: 09/13/18 19:58 Last Admin: 09/13/18 20:21 Dose: 1 mg Documented by: [id number] Medical Decision Making Differential Diagnosis Differential diagnoses includes but is not limited to toxic, metabolic, infectious, traumatic, cardiac, neurologic, hematologic, psychiatric and inflammatory etiologies. Medical Records Attestation: I reviewed the patient's medical records. Home Medications Current Medication List: was personally reviewed by me Laboratory Data Attestation: I reviewed the patient's lab results. Result diagrams: 09/13/18 18:43 09/13/18 18:43 Lab Results 09/13/18 09/13/18 09/13/18 Range/Units 18:43 18:43 19:00 WBC 7.31 (4.8-10.8) K/uL RBC 3.87 L (4.2-5.4) M/uL Hgb 11.1 L (12.0-16.0) g/dL Hct 33.5 L (37-47) % MCV 86.6 (80-100) fL MCH 28.7 (25-34) pg MCHC 33.1 (32-36) g/dL RDW Std Deviation 43.0 (36.4-46.3) fL RDW Coeff of [place] 13.5 (11.5-14.5) % Plt Count 185 (130-400) K/uL MPV 10.4 (7.4-10.4) fL Immature Gran % (Auto) 0.1 % Neut % (Auto) 65.3 % Lymph % (Auto) 23.8 % [place] % (Auto) 8.3 % Eos % (Auto) 2.2 % Baso % (Auto) 0.3 % Immature Gran # (Auto) 0.01 (0.00-0.02) K/uL Neut # (Auto) 4.77 (1.4-6.5) K/uL Lymph # (Auto) 1.74 (1.2-3.4) K/uL [place] # (Auto) 0.61 H (0.11-0.59) K/uL Eos # (Auto) 0.16 (0-0.5) K/uL Baso # (Auto) 0.02 (0-0.2) K/uL Sodium 141 (136-145) mmol/L Potassium 3.9 (3.5-5.1) mmol/L Chloride 110 H (98-107) mmol/L Carbon Dioxide 26 (21-32) mmol/L Anion Gap 5.0 (3-11) BUN 28 H (7-18) mg/dl Creatinine 1.09 (0.6-1.2) mg/dl Est Cr Clr Drug Dosing Not Reportable Est GFR ( Amer) 55.1 Est GFR (Non-Af Amer) 47.6 BUN/Creatinine Ratio 25.8 H (10-20) Glucose 124 H (70-99) mg/dl Calcium 9.2 (8.5-10.1) mg/dl Total Bilirubin 0.3 (0.2-1) mg/dl AST 17 (15-37) U/L ALT 16 (12-78) U/L Alkaline Phosphatase 102 (45-117) U/L Total Protein 6.6 (6.4-8.2) gm/dl Albumin 3.3 L (3.4-5.0) gm/dl Globulin 3.3 (2.5-4.0) gm/dl Albumin/Globulin Ratio 1.0 (0.9-2) Lipase 133 (73-393) U/L Urine Color Dark Yellow Urine Appearance Cloudy H (Clear) Urine pH 5.0 (4.5-7.5) Ur Specific [place] 1.025 (1.000-1.030) Urine Protein Negative (Negative) Urine Glucose (UA) Negative (Negative) Urine Ketones Trace H (Negative) Urine Blood Negative (Negative) Urine Nitrite Negative (Negative) Urine Bilirubin Negative (Negative) Urine Urobilinogen Negative (Negative) Ur Leukocyte Esterase 1+ H (Negative) Urine WBC (Auto) >30 H (0-5) /hpf Urine RBC (Auto) 0-4 (0-4) /hpf U Hyaline Cast (Auto) 5-10 H (0-5) /lpf U Epithel Cells (Auto) >30 H (0-5) /lpf Urine Bacteria (Auto) Negative (Negative) Ur Renal Epithelial Cell Not Reportable Urine Mucus Present H (None Prsent) Imaging Data Radiologist's Impression: Radiology results as stated below per my review and the radiologist's interpretation: XR chest 1V portable CLINICAL HISTORY: ams dyspnea COMPARISON STUDY: 08/26/2018 FINDINGS: Mild stable cardiomegaly. Prior median sternotomy. Diaphragms are smooth. Lungs are clear. IMPRESSION: No acute process. The above report was generated using voice recognition software. It may contain grammatical, syntax or spelling errors. Electronically signed by: Adrian Stevens M.D. 09/13/2018 7:[address] head/brain wo con CT DOSE: 1458.88 mGy.cm HISTORY: Trauma. Mental status change. fall TECHNIQUE: Multiaxial CT images of the head were performed without the use of intravenous contrast. A dose lowering technique was utilized adhering to the principles of ALARA. Comparison: 08/26/2017 Findings: The paranasal sinuses and mastoid air cells are clear. Old bilateral infarcts. Age-related atrophy and chronic small vessel change. No acute intracranial abnormality. No evidence for midline shift. Impression: No acute intracranial abnormality. Pre-existing bilateral old infarcts as well as age-related atrophy The above report was generated using voice recognition software. It may contain grammatical, syntax or spelling errors. Electronically signed by: Adrian Stevens M.D. 09/13/2018 7:43 PM Blood Pressure Blood Pressure Findings: Elevated blood pressure Blood Pressure Disposition: further management by hospitalist JACQUE Narrative Patient is an 82-year-old female brought in by family with a past medical history of dementia for increased education. She was recently treated for UTI but that the symptoms have not improved. Upon review of her chart does show that she grew out ESBL. She was placed on Macrobid which could cause the same symptoms worse failure of treatment. Vitals were remarkable for mild hypertension with systolic pressures in the low 90s. Labs were obtained and showed no significant leukocytosis or anemia. BMP was unremarkable. LFTs and bilirubin and lipase is unremarkable as well. UA did have leuks and WBCs present but epithelials as well. With diffuse fosfomycin but with the hypotension felt was prudent.. I gave her IV antibiotics including ertapenem. Blood pressures improved. Patient was given 2 doses of oral benzos for sedation. She was admitted to the hospital for further work-up. Impression & Plan Altered mental status, Acute UTI Discharge Plan Visit Data *Final* Discharge Date/Time: 09/13/18 21:54 Chief Complaint: Urinary Symptoms Stated Complaint: UTI ED Provider: Joey Lee Discharge Problem: Altered mental status, Acute UTI Patient Disposition: Admitted As Inpatient Discharge Instructions Interventions: ED Discharge Assessment Last Done: 09/13/18 21:54 Discharge Problem: Altered mental status Qualifiers: Altered mental status type: unspecified Qualified Code(s): R41.82 - Altered mental status, unspecified The scribe's documentation has been prepared under my direction and personally reviewed by me in its entirety. I confirm that the note above accurately reflects all work, treatment, procedures, and medical decision making performed by me.
[2018-09-14] MEDS: risperiDONE 0.5 MG TABLET PO SCH ×4 (07:34→17:34)
[2018-09-14] MEDS: METOPROLOL TARTRATE 25 MG TAB PO SCH (07:35)
[2018-09-14] MEDS: ASPIRIN 81 MG ECTAB PO SCH (07:35)
[2018-09-14] MEDS: ATORVASTATIN 10 MG TAB PO SCH (07:35)
[2018-09-14] MEDS: RIVASTIGMINE TARTRATE 1.5 MG CAP PO SCH (07:35)
[2018-09-14] MEDS: NSS + 20MEQ KCL 20 MEQ/1,000 ML BAG IV SCH ×2 (08:28→17:38)
[2018-09-14] MEDS ORDERED: ERTAPENEM SODIUM 1,000 MG in SODIUM CHLORIDE 0.9% 50 ML IV SCH (09:00)
[2018-09-14] MEDS: TRAMADOL HCL 50 MG TABLET PO PRN (12:10)
[2018-09-14] MEDS ORDERED: SOD PHOSPHATE/SOD BIPHOSPHATE ENEMA 132 ML BTL PR STA (17:22)
[2018-09-14] MEDS: CELECOXIB 100 MG CAP PO SCH (21:33)
[2018-09-14] MEDS: MIRABEGRON ER 25 MG TAB PO SCH (21:33)
[2018-09-14] MEDS: clonazePAM 0.5 MG TAB PO SCH (21:33)
[2018-09-14] MEDS: CHOLECALCIFEROL 1,000 UNITS TAB PO SCH (21:33)
--- NOTE | 2018-09-14 21:33 | Hospitalist Progress Note ---
Date of Service September 14, 2018 Assessment & Plan (1) Dementia with behavioral disturbance: Urine cx is negative thus recent behavioral issues is not due to lingering UTI. Of note - UTI was treated 3 weeks ago. In light of prior strokes consider MRI brain to r/o subacute stroke. Fecal impaction could be contributing to altered mental status - enema today. Check records to see if TSH,B12,etc have been normal. Consider titration of risperdal. Avoid escalation of benzos. (2) Infection due to ESBL-producing Escherichia coli: 3 weeks ago and ESBL e coli UTI. resolved. urine cx from yesterday negative. stop ertapenem. (3) Altered mental status: see discussion above. lethargy today likely from ativan along with clonazepam. (4) Diabetes: pre-DM last a1c was 5.8% no Rx (5) Aortic stenosis: noted (6) Fecal impaction: fleets enema x 1 (7) Anxiety: followed by psych cont home med regimen (8) Stroke: consider repeat MRI brain to r/o new, subacute stroke (9) DVT prophylaxis: add heparin BID in am Subjective 2 visits to pt's room today during Am rounds she was sleeping soundly even w/ sternal rub she did not wake up during PM rounds her son was at bedside she was awake w/ eyes open - minimally following commands son states she c/o sore throat 2 days ago also had abd pain yesterday son states medical THC is prescribed by psychiatry for "anxiety" Review of Systems Review of Systems: Unobtainable due to cognitive status Physical Exam Constitutional: + altered mental status; no acute distress, not ill appearing and not obese ENMT: external ear and nose normal, oropharynx normal Respiratory: normal respiratory effort, lungs clear to auscultation Cardiovascular: Rate/Rhythm: regular rate and regular rhythm Heart Sounds: normal S1, normal S2 and + murmur (1-2/6 RUSB) Vessels: posterior tibial pulses present and dorsalis pedis pulses present; no JVD Gastrointestinal (Abdomen): normal bowel sounds, soft, nontender, no hepatosplenomegaly KACIE, chaperoned by staff -fecal impaction (very hard firm stool in vault); no melena; stool brown Psychiatric: Orientation: + not alert and + not oriented x 3 Results & Data Vital Signs (Past 12 Hours) Vital Signs Pulse Resp BP Pulse Ox 09/14/18 17:09 54 L 16 127/85 97 (1) Dementia with behavioral disturbance Dementia type: vascular dementia Qualified Code(s): F01.51 - Vascular dementia with behavioral disturbance (2) Altered mental status Altered mental status type: unspecified Qualified Code(s): R41.82 - Altered mental status, unspecified (3) Diabetes Diabetes mellitus type: type 2 Diabetes mellitus residential insulin use: without residential use Diabetes mellitus complication status: without complication Qualified Code(s): E11.9 - Type 2 diabetes mellitus without complications (4) Aortic stenosis Cardiac valve disease etiology: etiology unspecified Qualified Code(s): I35.0 - Nonrheumatic aortic (valve) stenosis (5) Stroke CVA mechanism: unspecified Qualified Code(s): I63.9 - Cerebral infarction, unspecified
[2018-09-14] MEDS: MEDICAL MARIJUANA PO SCH (21:34)
[2018-09-15] MEDS: NSS + 20MEQ KCL 20 MEQ/1,000 ML BAG IV SCH (03:27)
[2018-09-15] MEDS: METOPROLOL TARTRATE 25 MG TAB PO SCH (09:30)
[2018-09-15] MEDS: ATORVASTATIN 10 MG TAB PO SCH (09:30)
[2018-09-15] MEDS: ASPIRIN 81 MG ECTAB PO SCH (09:30)
[2018-09-15] MEDS: risperiDONE 0.5 MG TABLET PO SCH ×3 (09:30→16:38)
[2018-09-15] MEDS: RIVASTIGMINE TARTRATE 1.5 MG CAP PO SCH (09:31)
[2018-09-15 09:54] LABS: Hematocrit (blood only) 31.1 % (37-47); Hemoglobin 10.4 g/dL (12.0-16.0); Mean Corpuscular Hgb Conc 33.4 g/dL (32-36); Mean Corpuscular Volume 87.1 fL (80-100); Mean Platelet Volume 9.8 fL (7.4-10.4); Platelet Count 149 K/uL (130-400); RDW Coefficient of Variation 13.5 % (11.5-14.5); Red Blood Count 3.57 M/uL (4.2-5.4); White Blood Count 4.97 K/uL (4.8-10.8)
[2018-09-15 10:08] LABS: INR 1.1 (0.9-1.1); Partial Thromboplastin Ratio 0.8; Prothrombin Time 11.4 Seconds (9.0-12.0)
[2018-09-15] MEDS: HEPARIN SOD 5,000 UNIT/0.5 ML VIAL SQ SCH ×2 (12:01→20:33)
[2018-09-15] MEDS: TRAMADOL HCL 50 MG TABLET PO PRN (14:19)
[2018-09-15] MEDS ORDERED: HALOPERIDOL 5 MG TAB PO STA (15:23)
[2018-09-15] MEDS ORDERED: HALOPERIDOL LACTATE 5 MG/ML 1 ML VIAL IM STA (16:48)
[2018-09-15] MEDS: clonazePAM 0.5 MG TAB PO SCH (17:56)
[2018-09-15] MEDS ORDERED: IOVERSOL 100ml IV PRN (18:54)
[2018-09-15] MEDS ORDERED: HYDROmorphone INJ 0.5 MG/0.5 ML SYR IV ONE (19:00)
--- NOTE | 2018-09-15 19:13 | CT Scan Report ---
CT OF THE ABDOMEN AND PELVIS WITH CONTRAST CLINICAL HISTORY: Right lower quadrant abdominal pain. COMPARISON STUDY: CT of the abdomen and pelvis July 07, 2018. TECHNIQUE: Following IV administration of 93 mL of Optiray-320, axial images of the abdomen and pelvi s were obtained from the lung bases to the proximal femurs. Images were reviewed in the axial, sagitt al, and coronal planes. IV contrast was administered without complication. Automated exposure contro l was utilized for the study. A dose lowering technique was utilized adhering to the principles of A SANJEEV. CT DOSE: 754.52 mGy.cm FINDINGS: Moderate cardiomegaly is noted. No pneumatosis, free air or portal venous gas is present. M ild biliary ductal dilatation is unchanged. There is no peripancreatic infiltration or pancreatic daryl soheila dilatation. There are gallstones within the gallbladder without evidence for acute cholecystitis. Bilateral renal cysts are noted. There is no hydronephrosis. There is no evidence for a bowel obstru ction. Colonic diverticulosis is noted without evidence for acute diverticulitis. A moderate amount o f stool within the colon is noted. The appendix is unremarkable. There is no lymphadenopathy or ascit es. No suspicious osseous lesions are noted. No abscess or hematoma is identified. IMPRESSION: 1. No acute process within the abdomen or pelvis. 2. Colonic diverticulosis without evidence for acute diverticulitis. 3. Cholelithiasis. No evidence for acute cholecystitis. 4. Moderate amount stool within the colon. No evidence for a bowel obstruction. Unremarkable appendix . Electronically signed by: Chris Rodriguez M.D. 09/15/2018 7:12 PM
[2018-09-15] MEDS: MIRABEGRON ER 25 MG TAB PO SCH (20:32)
[2018-09-15] MEDS: CHOLECALCIFEROL 1,000 UNITS TAB PO SCH (20:32)
[2018-09-15] MEDS: SENNA 8.6 MG TAB PO SCH (20:32)
[2018-09-15] MEDS: MEDICAL MARIJUANA PO SCH (20:33)
[2018-09-15] MEDS: CELECOXIB 100 MG CAP PO SCH (20:33)
[2018-09-15] MEDS: POLYETHYLENE (MIRALAX) 17 GM PACK PO SCH (20:33)
--- NOTE | 2018-09-15 21:35 | Hospitalist Progress Note ---
Date of Service September 15, 2018 Assessment & Plan (1) Dementia with behavioral disturbance: Urine cx is negative thus recent behavioral issues is not due to lingering UTI. Of note - UTI was treated 3 weeks ago. In light of prior strokes consider MRI brain to r/o subacute stroke. Fecal impaction could have been contributing to altered mental status - enema given yesterday with good results. However, she is still quite altered. B12, TSH in recent past normal. Check B1 level in am then start thiamine supplementation. Seems to have pain in abdomen -- intra-abdominal process causing confusion? Plan for CT abd/pelvis today. Will increase her risperdal to 0.5mg TID. (2) Altered mental status: see discussion above. very confused & listless today. gave haldol prior to her CT today for sedation purposes. (3) Infection due to ESBL-producing Escherichia coli: 3 weeks ago had ESBL e coli UTI. resolved. urine cx from negative from this admission. stopped ertapenem. observe off of abx. (4) Diabetes: pre-DM last a1c was 5.8% no Rx (5) Aortic stenosis: noted (6) Fecal impaction: fleets enema x 1 - resolved now start senna/miralax for bowel maintenance (7) Anxiety: followed by psych cont home med regimen (8) Stroke: consider repeat MRI brain to r/o new, subacute stroke (9) DVT prophylaxis: heparin BID Subjective patient agitated, listless, confused during my visit has been listless all day per staff rolling around in bed during my rounds she was moaning I asked her if she was in pain several times - she finally said yes but couldn't localize it could not provide any meaningful history Review of Systems Review of Systems: Unobtainable due to cognitive status Physical Exam Constitutional: + altered mental status; not obese listless, rolling around in bed ENMT: external ear and nose normal, oropharynx normal Respiratory: normal respiratory effort, lungs clear to auscultation Cardiovascular: Rate/Rhythm: regular rate and regular rhythm Heart Sounds: normal S1, normal S2 and + murmur (1-2/6 RUSB) Vessels: posterior tibial pulses present and dorsalis pedis pulses present; no JVD Gastrointestinal (Abdomen): Inspection/Auscultation: abdomen normal to inspection and normal bowel sounds; abdomen not distended Percussion/Palpation: + abdomen tender (??RLQ?); no hepatosplenomegaly and no hernia Neurologic: seems to move all 4 extremities; no facial droop Psychiatric: Orientation: + not alert and + not oriented x 3 Results & Data Vital Signs (Past 12 Hours) Vital Signs Temp Pulse Resp BP Pulse Ox 09/15/18 19:31 56 L 150/62 H 09/15/18 14:49 36.7 C 61 20 191/71 H 95 09/15/18 11:15 36.5 C 53 L 18 134/76 98 Laboratory Results Laboratory Results - last 24 hr 09/15/18 09/15/18 09:39 09:39 WBC 4.97 RBC 3.57 L Hgb 10.4 L Hct 31.1 L MCV 87.1 MCH 29.1 MCHC 33.4 RDW Std Deviation 43.0 RDW Coeff of [place] 13.5 Plt Count 149 MPV 9.8 PT 11.4 INR 1.1 APTT 23.0 PTT Ratio 0.8 (1) Dementia with behavioral disturbance Dementia type: vascular dementia Qualified Code(s): F01.51 - Vascular dementia with behavioral disturbance (2) Diabetes Diabetes mellitus complication status: without complication Diabetes mellitus terminal carman insulin use: without terminal carman use Diabetes mellitus type: type 2 Qualified Code(s): E11.9 - Type 2 diabetes mellitus without complications (3) Aortic stenosis Cardiac valve disease etiology: etiology unspecified Qualified Code(s): I35.0 - Nonrheumatic aortic (valve) stenosis (4) Altered mental status Altered mental status type: unspecified Qualified Code(s): R41.82 - Altered mental status, unspecified (5) Stroke CVA mechanism: unspecified Qualified Code(s): I63.9 - Cerebral infarction, unspecified
[2018-09-16 06:57] LABS: Albumin Level 2.7 gm/dl (3.4-5.0); BUN Creatinine Ratio 18.6 (10-20); Calcium 8.8 mg/dl (8.5-10.1); Creatinine Clr Calc Pharmacy 51.5 ml/min; Est GFR (African American) 89.5; Est GFR (Non-African American) 77.2; Potassium 4.1 mmol/L (3.5-5.1)
[2018-09-16 07:00] LABS: Bilirubin,Total 0.4 mg/dl (0.2-1); Globulin 2.8 gm/dl (2.5-4.0); Total Protein 5.5 gm/dl (6.4-8.2)
[2018-09-16] MEDS: risperiDONE 0.5 MG TABLET PO SCH ×3 (08:00→15:46)
[2018-09-16] MEDS: SENNA 8.6 MG TAB PO SCH (08:00)
[2018-09-16] MEDS: RIVASTIGMINE TARTRATE 1.5 MG CAP PO SCH (08:00)
[2018-09-16] MEDS: ATORVASTATIN 10 MG TAB PO SCH (08:00)
[2018-09-16] MEDS: POLYETHYLENE (MIRALAX) 17 GM PACK PO SCH ×2 (08:01→20:04)
[2018-09-16] MEDS: ASPIRIN 81 MG ECTAB PO SCH (08:01)
[2018-09-16] MEDS: HEPARIN SOD 5,000 UNIT/0.5 ML VIAL SQ SCH ×2 (08:01→20:05)
[2018-09-16] MEDS: METOPROLOL TARTRATE 25 MG TAB PO SCH (08:02)
[2018-09-16] MEDS ORDERED: HALOPERIDOL LACTATE 5 MG/ML 1 ML VIAL IM STA (14:27)
[2018-09-16] MEDS ORDERED: clonazePAM 0.5 MG TAB PO STA (15:34)
--- NOTE | 2018-09-16 17:09 | Magnetic Resonance Report ---
MRI OF THE BRAIN WITHOUT IV CONTRAST CLINICAL HISTORY: Change in mental status. COMPARISON STUDY: CT of the brain dated 09/13/2018. TECHNIQUE: MRI of the brain was performed utilizing various T1 and T2-weighted sequences in the axial , sagittal, and coronal planes. IV contrast was not administered for this examination. The examinatio n is compromised by motion artifact. FINDINGS: Brain parenchyma: There is age-related involutional change noting advanced subcortical and periventri cular microangiopathic disease. Large foci of right temporoparietal encephalomalacia as well as left temporal encephalomalacia are consistent with remote infarcts. Chronic lacunar infarcts are seen in b oth thalami and the cerebellum. There is an 8 mm focus of restricted diffusion identified within the medial right temporal cortex consistent with acute to subacute ischemia. There may also be a punctate focus of acute to subacute ischemia identified within the left cerebellar hemisphere on March 21. No additional foci of acute ischemia identified. There is no hemorrhage or mass effect. No extra-axia l fluid collection is seen. The cerebellar tonsils are normal in configuration. Ventricles, sulci, and cisterns: Prominent secondary to involutional change. Pituitary and sella: Partially empty sella is incidentally noted. Intracranial vasculature: Normal flow voids are maintained at the skull base. Orbits: The bony orbits are grossly intact. Orbital contents are normal in appearance, noting bilater al ocular lens implants. Sinuses and mastoids: There is mucosal thickening within the left ethmoid sinuses and the left maxill dana antrum. The remaining paranasal sinuses are clear. The mastoid air cells are well pneumatized. Calvarium: Unremarkable. Cervical cord: Partially visualized cervical spinal cord is normal in morphology and signal intensity . IMPRESSION: 1. There is an 8 mm focus of restricted diffusion identified within the medial right temporal cortex consistent with acute to subacute ischemia. 2. There is also likely a punctate focus of acute to subacute ischemia within the left cerebellar hem isphere. 3. No additional foci of acute ischemia are identified. 4. There is no hemorrhage or mass effect. 5. Senescent change and remote infarcts as above. Electronically signed by: Bladiimr Green M.D. 09/16/2018 5:08 PM
[2018-09-16] MEDS ORDERED: CLOPIDOGREL BISULFATE 75 MG TAB PO ONE (17:25)
[2018-09-16] MEDS: MEDICAL MARIJUANA PO SCH (19:51)
[2018-09-16] MEDS: clonazePAM 0.5 MG TAB PO SCH (20:04)
[2018-09-16] MEDS: MIRABEGRON ER 25 MG TAB PO SCH (20:04)
[2018-09-16] MEDS: THIAMINE HCL 200 MG in SODIUM CHLORIDE 0.9% 50 ML IV SCH (20:05)
[2018-09-16] MEDS: CHOLECALCIFEROL 1,000 UNITS TAB PO SCH (20:05)
--- NOTE | 2018-09-16 21:22 | Hospitalist Progress Note ---
Date of Service September 16, 2018 Assessment & Plan (1) Stroke: MRI brain today with subacute strokes (right temporal lobe, left cerebellum). This is the likely cause of her worsening behavior/altered MS (above her baseline issues). Change asa to plavix. If creatinine is stable tomorrow consider CTA head/neck. Has bioprosthetic aortic valve - echo to r/o thrombus, etc. EKG tonight to exclude a.fib (no history of such). Formal neuro consult requested. PT, OT, speech evals. Check lipids in am. Continue statin (lipitor). Son updated and informed of MRI results. (2) Dementia with behavioral disturbance: Urine cx is negative thus recent behavioral issues not due to lingering UTI. Of note - UTI was treated 3 weeks ago. MRI brain with new strokes - likely culprit for behavioral disturbance. B12, TSH in recent past normal. B1 level pending; I placed her on thiamine supplementation. CT abd/pelvis without acute process. Risperdal increased to 0.5mg TID this admission for ongoing behavioral issues. (3) Altered mental status: see discussion above. Son today reports mental status is now back to baseline. (4) Infection due to ESBL-producing Escherichia coli: 3 weeks ago had ESBL e coli UTI. resolved. urine cx negative from this admission. stopped ertapenem. observe off of abx. (5) Diabetes: pre-DM last a1c was 5.8% no Rx (6) Aortic stenosis: h/o s/p bioprosthetic AVR echo to reassess valve in light of new strokes (7) Fecal impaction: resolved senna/miralax for bowel maintenance (8) Anxiety: followed by psych cont home med regimen is on medical THC for anxiety per son, prescribed by psychiatry (??) (9) DVT prophylaxis: heparin BID await neuro eval dispo - home with family? SNF w/ dementia unit? son updated 09/16/18 Subjective during rounds patient had eyes open minimally follows commands speech difficult to understand but gives 1 word answers intermittently denied pain today rolling around in bed I spoke with son by phone - he stated that her behavior today IS HER BASELINE staff report good appetite (ate 100% lunch) Review of Systems Review of Systems: Unobtainable due to mental health condition and Unobtainable due to cognitive status Physical Exam Constitutional: + altered mental status; not obese ENMT: external ear and nose normal, oropharynx normal Respiratory: normal respiratory effort, lungs clear to auscultation Cardiovascular: Rate/Rhythm: regular rate and regular rhythm Heart Sounds: normal S1, normal S2 and + murmur (1-2/6 RUSB) Vessels: posterior tibial pulses present and dorsalis pedis pulses present; no JVD Gastrointestinal (Abdomen): normal bowel sounds, soft, nontender, no hepatosplenomegaly Inspection/Auscultation: abdomen normal to inspection; abdomen not distended Neurologic: no obvious focal deficits or facial droop Psychiatric: Orientation: + not alert and + not oriented x 3 Results & Data Laboratory Results Laboratory Results - last 24 hr 09/16/18 06:05 Sodium 143 Potassium 4.1 Chloride 114 H Carbon Dioxide 25 Anion Gap 5.0 BUN 14 Creatinine 0.73 Est Cr Clr Drug Dosing 51.5 Est GFR ( Amer) 89.5 Est GFR (Non-Af Amer) 77.2 BUN/Creatinine Ratio 18.6 Glucose 80 Calcium 8.8 Total Bilirubin 0.4 AST 19 ALT 14 Alkaline Phosphatase 85 Total Protein 5.5 L Albumin 2.7 L Globulin 2.8 Albumin/Globulin Ratio 1.0 (1) Dementia with behavioral disturbance Dementia type: vascular dementia Qualified Code(s): F01.51 - Vascular dementia with behavioral disturbance (2) Diabetes Diabetes mellitus complication status: without complication Diabetes mellitus snf insulin use: without terminal operations manager use Diabetes mellitus type: type 2 Qualified Code(s): E11.9 - Type 2 diabetes mellitus without complications (3) Aortic stenosis Cardiac valve disease etiology: etiology unspecified Qualified Code(s): I35.0 - Nonrheumatic aortic (valve) stenosis (4) Altered mental status Altered mental status type: unspecified Qualified Code(s): R41.82 - Altered mental status, unspecified (5) Stroke CVA mechanism: unspecified Qualified Code(s): I63.9 - Cerebral infarction, unspecified
[2018-09-17 08:12] LABS: Chol HDL Ratio 2; Cholesterol 113 mg/dl (0-200); HDL Cholesterol 47 mg/dl; LDL Cholesterol Calculated 42 mg/dl; Triglycerides 119 mg/dl (0-150); VLDL Cholesterol 24 mg/dl
[2018-09-17 09:03] LABS: Basophils # (auto) 0.02 K/uL (0-0.2); Basophils % (auto) 0.5 %; Eosinophils # (auto) 0.13 K/uL (0-0.5); Eosinophils % (auto) 3.2 %; Hematocrit (blood only) 31.6 % (37-47); Hemoglobin 10.5 g/dL (12.0-16.0); Immature Granulocytes # (auto) 0.01 K/uL (0.00-0.02); Immature Granulocytes % (auto) 0.2 %; Lymphocytes # (auto) 1.44 K/uL (1.2-3.4); Lymphocytes % (auto) 35.1 %; Mean Corpuscular Volume 86.3 fL (80-100); Mean Platelet Volume 10.3 fL (7.4-10.4); Monocytes # (auto) 0.43 K/uL (0.11-0.59); Monocytes % (auto) 10.5 %; Neutrophils # (auto) 2.07 K/uL (1.4-6.5); Neutrophils % (auto) 50.5 %; Platelet Count 138 K/uL (130-400); RDW Coefficient of Variation 13.4 % (11.5-14.5); RDW Standard Deviation 42.3 fL (36.4-46.3); Red Blood Count 3.66 M/uL (4.2-5.4)
[2018-09-17 09:13] LABS: Mean Corpuscular Hgb Conc 33.2 g/dL (32-36)
[2018-09-17 09:16] LABS: HCO3 ABG 26 mmol/L (19-24); Oxygen Saturation ABG 96.9 % (90-95); PCO2 ABG 36 mmHg (35-46); PO2 ABG 86 mm/Hg (80-95); pH ABG 7.47 (7.35-7.45)
[2018-09-17 09:21] LABS: Allen Test Pos (Pos)
[2018-09-17 09:22] LABS: Albumin Level 2.8 gm/dl (3.4-5.0); BUN Creatinine Ratio 18.6 (10-20); Creatinine Clr Calc Pharmacy 50.8 ml/min; Est GFR (African American) 88.1; Potassium 4.1 mmol/L (3.5-5.1)
[2018-09-17 09:34] LABS: Bilirubin Direct 0.1 mg/dl (0-0.2); Bilirubin,Total 0.3 mg/dl (0.2-1); Total Protein 5.7 gm/dl (6.4-8.2); Troponin I 0.061 ng/ml (0-0.045)
--- NOTE | 2018-09-17 09:35 | CT Scan Report ---
CT OF THE HEAD WITHOUT CONTRAST CLINICAL HISTORY: unresponsive, recent CVA COMPARISON STUDY: Head CT September 13, 2018. MRI of the brain September 16, 2018. CT DOSE: 537.48 mGy.cm TECHNIQUE: Helical axial images of the head were obtained without IV contrast. Automated exposure con trol was utilized for the study. A dose lowering technique was utilized adhering to the principles o f ALARA. FINDINGS: No acute intracranial hemorrhage, midline shift or mass effect is present. Ventricular syst em is stable. Basilar cisterns are patent. There are no extra-axial collections. The small subacute t o acute infarcts on MRI of the brain from September 16, 2018 are not evident on this exam due to technique. Old right MCA territory infarct is noted. There is old left temporal lobe infarct as well. White diana er hypodensity suggests small vessel disease. No significant calvarial abnormality. IMPRESSION: 1. No acute intracranial hemorrhage or mass effect. 2. The small subacute to acute infarcts on MRI of the brain from September 16, 2018 are not evident on this exam due to technique. 3. Multiple old infarcts, as described above. Electronically signed by: Chris Rodriguez M.D. 09/17/2018 9:33 AM
[2018-09-17] MEDS: risperiDONE 0.5 MG TABLET PO SCH (10:04)
[2018-09-17] MEDS: ASPIRIN 81 MG ECTAB PO SCH (10:57)
[2018-09-17] MEDS: SENNA 8.6 MG TAB PO SCH (10:57)
[2018-09-17] MEDS: POLYETHYLENE (MIRALAX) 17 GM PACK PO SCH ×2 (10:57→19:48)
[2018-09-17] MEDS: METOPROLOL TARTRATE 25 MG TAB PO SCH (11:09)
[2018-09-17] MEDS: RIVASTIGMINE TARTRATE 1.5 MG CAP PO SCH (11:09)
[2018-09-17] MEDS: ATORVASTATIN 10 MG TAB PO SCH (11:09)
[2018-09-17] MEDS: CLOPIDOGREL BISULFATE 75 MG TAB PO SCH (11:09)
[2018-09-17] MEDS: HEPARIN SOD 5,000 UNIT/0.5 ML VIAL SQ SCH ×2 (11:23→20:58)
[2018-09-17] MEDS: THIAMINE HCL 200 MG in SODIUM CHLORIDE 0.9% 50 ML IV SCH ×2 (11:23→21:43)
--- NOTE | 2018-09-17 12:51 | Neurology Consultation ---
Date of Consultation September 17, 2018 Assessment & Plan (1) Acute ischemic stroke: This is a 82-year-old female who presented with change in mental status. Found to have 2 tiny acute to subacute ischemic strokes in the right temporal and left cerebellum area. Certainly this could be the reason for her change in mental status. Stroke risk factors include previous CVA with left hemiplegia, left hemianopsia, and likely vascular dementia, prediabetes. Considering that she has 2 tiny strokes in different vascular territories, this is concerning for a cardioembolic etiology. Recommendations: Agree with changing home aspirin to Plavix for secondary stroke prevention for now. Continue home statin medication Follow-up echocardiogram results. Recommend CTA of the head and neck to rule out critical stenosis. If unable to get a CTA, should at least have carotid Dopplers. Avoid benzodiazepines as this can worsen delirium and agitation. Agree with antipsychotics as needed for behavior If no signs of A. fib in the hospital, would recommend a Holter monitor as an outpatient to rule out A. fib Avoid dehydration and hypotension Blood pressure recommendations while in hospital 175/95-150/80 For the first month after hospital discharge, blood pressure recommendations 150/90-130/80. After the first month, blood pressure recommendations 130/80-110/70 Follow-up PT/OT and speech recommendations for discharge planning Neurological recommendations for stroke risk factor modifications: Total cholesterol goal 100-200, and LDL goal less than 100 Hemoglobin A1c goal less than 7 Encourage regular exercise at least 30 minutes 3 times per week Hospital Follow-up in neurology clinic in 1 month after discharge. Thank you for allowing me to part is been in this patient's care. If there is any questions or concerns, feel free to call/page me. History of Present Illness Reason for Consultation: Consultation for stroke Attending Physician: Denisse Caldwell MD History of Present Illness This is a 82-year-old female who initially presented on September 13 for change in mental status. Yesterday MRI of the brain was obtained. Report and images reviewed by myself. The patient has 2 tiny acute to subacute right temporal and left cerebellum ischemic stroke. In addition also has old right temporoparietal ischemic stroke and significant subcortical ischemic disease bilaterally. Patient has had a stroke in 2010 with symptoms of left hemiplegia and hemianopsia. Has had symptoms likely consistent with vascular dementia. Was noted to have cardiomyopathy on echocardiogram in 2014. Other past medical history significant for aortic stenosis status post replacement, prediabetes. History is limited by patient's mental status. Total cholesterol 113, LDL 42, HDL 47, triglycerides 118 Allergies Allergy/AdvReac Type Severity Reaction Status Date / Time enalapril Allergy Intermediate Cough Verified 09/13/18 18:49 escitalopram AdvReac Intermediate Hallucinati Verified 09/13/18 18:49 ons Home Medications Home Medications Medication Instructions Recorded Confirmed Type aspirin 81 mg PO QAM 04/04/18 09/13/18 History atorvastatin 10 mg PO QAM 04/04/18 09/13/18 History celecoxib 100 mg PO PM 04/04/18 09/13/18 History cholecalciferol (vitamin D3) 2,000 units PO HS 04/04/18 09/13/18 History [Vitamin D3] clonazepam 0.5 mg PO PM 04/04/18 09/13/18 History diclofenac sodium [Voltaren] 1 applic TOPICAL QID PRN 04/04/18 09/13/18 History docusate sodium 100 mg PO BID PRN 04/04/18 09/13/18 History lorazepam 0.5 mg PO DAILY PRN 04/04/18 09/13/18 History metoprolol tartrate 25 mg PO QAM 04/04/18 09/13/18 History mirabegron [Myrbetriq] 50 mg PO HS 04/04/18 09/13/18 History nystatin [Nystop] 1 applic TOPICAL TID PRN 04/04/18 09/13/18 History nystatin-triamcinolone 1 applic TOPICAL BID 04/04/18 09/13/18 History risperidone 0.25 mg PO TIDM 04/04/18 09/13/18 History rivastigmine tartrate 1.5 mg PO QAM 04/04/18 09/13/18 History tramadol 50 mg PO Q24H PRN 04/04/18 09/13/18 History triamcinolone acetonide 1 applic TOPICAL BID 04/04/18 09/13/18 History Medical Marijuana 1 applic SUBLINGUAL HS 08/26/18 09/13/18 History acetaminophen [Tylenol Extra 500 mg PO Q6H PRN 08/26/18 09/13/18 History Strength] methenamine hippurate 1 ophthalmic insert PO PM 08/26/18 09/13/18 History Patient History Medical History Diabetes (Chronic) Heart disease (Chronic) Hypertension (Chronic) Aortic stenosis (Chronic) Anxiety (Chronic) Stroke (Chronic) Family History Other Cancer Hypertension Social History Preferred Language: Greek Communication Ability: Unable Straight Line Press Setter Required: No Beliefs That Will Affect Care: None Current Living Situation: Family Other Information That Helps Us Care for You: No Feels Safe at Home: Yes Smoking Status: Never smoker Hx Alcohol Use: No Hx Substance Use: Yes substance use type: marijuana Review of Systems Review of Systems: Unobtainable due to cognitive status Physical Exam Physical Exam: Exam limited due to mental status. Gen.: Patient is alert and seems mildly agitated lying in bed Heart: Regular rate and rhythm Extremities: No gross deformities or rashes noted Neurological examination: Mental status: Patient is alert and oriented to person & place. Unable to give own history. Poor fund of knowledge. Attention and concentration poor for the situation. Recent and remote memory impaired Speech is dysarthric and appears to have mixed aphasia Cranial nerves: Funduscopic examination was difficult to visualize. Pupils equally round and reactive to light. Patient appeared to be able to look in all directions but could not participate in formal extraocular muscle examination. Mild left lower facial weakness. Facial sensation intact. The rest of the cranial nerves were unobtainable due to mental status Strength: Formal strength examination was limited to mental status. The patient appeared to have antigravity strength in all extremities. There is a sense that she has some mild weakness on the left compared to the right. Difficult to assess tone due to movement. Sensation: Grossly intact to light touch in all extremities Deep tendon reflexes: +1 in bilateral biceps and patellar. Toes are equivocal to plantar stimulation bilaterally Coordination: Could not do formal coordination testing due to mental status. The patient did appear to be able to reach out and grab equally with both hands with no dysmetria or ataxia noted. Station within the bed is normal. Results & Data Vital Signs (Past 12 Hours) Vital Signs Temp Pulse Resp BP Pulse Ox 09/17/18 09:50 36.4 C L 68 14 174/91 H 100
--- NOTE | 2018-09-17 19:20 | Hospitalist Progress Note ---
Date of Service September 17, 2018 Assessment & Plan (1) Stroke: MRI brain today with subacute strokes (right temporal lobe, left cerebellum). COuld be embolic in nature. No A-fib on tele thus far today This is the likely cause of her worsening behavior/altered MS (above her baseline issues). Changed asa to plavix. -check CTA head/neck. Has bioprosthetic aortic valve - echo to r/o thrombus, etc. was negative Formal neuro consult appreciated--> agreed with switch to Plavix, check CT angiogram PT, OT, speech evals. Lipids acceptable Continue statin (lipitor). Son updated and informed of MRI results, repeat CT head results today without edema or hemorrhagic conversion given acute mental status change on the morning of 09/17 (2) Dementia with behavioral disturbance: Urine cx is negative thus recent behavioral issues not due to lingering UTI. Of note - UTI was treated 3 weeks ago. MRI brain with new strokes - likely culprit for behavioral disturbance. B12, TSH in recent past normal. B1 level pending; -continue thiamine supplementation. CT abd/pelvis without acute process. Risperdal increased to 0.5mg TID this admission for ongoing behavioral issues- was held for one dose today for decreased sensorium but restarted this evening. (3) Altered mental status: Metabolic encephalopathy-likely secondary to stroke upon admission, then apparently improved -This morning was significantly altered and had decreased respiratory drive, barely responsive to noxious stimuli, now improved Was likely secondary to receiving Haldol and an extra dose of clonazepam in the last 12 hours prior to that. -Now improved -Would avoid Haldol in the future (4) Infection due to ESBL-producing Escherichia coli: 3 weeks ago had ESBL e coli UTI. resolved. urine cx negative from this admission. stopped ertapenem. observe off of abx. (5) Diabetes: pre-DM last a1c was 5.8% no Rx (6) Aortic stenosis: h/o s/p bioprosthetic AVR echo to reassess valve in light of new strokes shows valve is functioning normally (7) Fecal impaction: resolved -continue senna/miralax for bowel maintenance (8) Anxiety: followed by psych routinely as an outpatient, thought to be secondary to old strokes in the frontal region cont home med regimen is on medical THC for anxiety per son, prescribed by psychiatry (9) DVT prophylaxis: heparin BID Disposition-stable for discharge home with previous 24/ care likely tomorrow if mental status remains at baseline Subjective Called urgently to patient's room this morning for respirations of 7 and patient was unresponsive to the nurses sternal rub. She was also minimally responsive to my sternal rub but did say ouch when I applied pressure with my pen to her great toenails bilaterally. She would not open her eyes and would not respond to questions. She did have a low respiratory rate and seem to be apneic for about 10 seconds at a time intermittently. She was transferred to telemetry unit but after having an ABG and a CT of the head, she awoke and has been awake ever since. She has been very agitated today and doing leg lifts and sit ups and trying to crawl out of bed. I discussed her care with her son extensively today. He reports that she often is quite drowsy in the morning and that at times he is to apply ice packs to her forehead and pinch her upper leg to get her to wake up in the morning. CT of the head reviewed and was without acute changes, ABG was with a respiratory alkalosis, and otherwise labs were acceptable. Troponin mildly elevated initially but came down. ECG was with chronic left bundle branch block. Patient was seen again in the evening and she was wide awake, but confused and crawled into a position in the bed. She stated "I do not know" repeatedly. She does not know where she is or the year. Son reports this is around her baseline, but slightly more agitated than usual as she did not receive her Risperdal today. Review of Systems Review of Systems: Unobtainable due to cognitive status Physical Exam Constitutional: WD/WN, vitals as above (restless) Eyes: PERRL, conjunctivae normal, anicteric sclerae Neck: trachea midline, no thyromegaly Respiratory: no labored breathing Auscultation: lungs clear to auscultation bilaterally (was with low RR earlier, now normal in evening) Cardiovascular: RRR, no murmur, no edema Gastrointestinal (Abdomen): normal bowel sounds, soft, nontender, no hepatosplenomegaly Musculoskeletal: Extremities: extremities normal to inspection; no cyanosis and no clubbing Skin: no rashes, warm and dry Neurologic: moves all extremities and awake Psychiatric: Orientation: alert; + not oriented to place and + not oriented to time Eye Contact: + fair eye contact Motor Behavior: + psychomotor agitation Results & Data Vital Signs (Past 12 Hours) Vital Signs Temp Pulse Resp BP Pulse Ox 09/17/18 19:02 36.9 C 86 20 172/82 H 97 09/17/18 15:14 36.6 C 66 16 162/79 H 98 09/17/18 09:50 36.4 C L 68 14 174/91 H 100 Laboratory Results 09/17/18 09/17/18 09/17/18 Range/Units 14:26 09:00 08:48 WBC (4.8-10.8) K/uL RBC (4.2-5.4) M/uL Hgb (12.0-16.0) g/dL Hct (37-47) % MCV (80-100) fL MCH (25-34) pg MCHC (32-36) g/dL RDW Std Deviation (36.4-46.3) fL RDW Coeff of [place] (11.5-14.5) % Plt Count (130-400) K/uL MPV (7.4-10.4) fL Immature Gran % (Auto) % Neut % (Auto) % Lymph % (Auto) % [place] % (Auto) % Eos % (Auto) % Baso % (Auto) % Immature Gran # (Auto) (0.00-0.02) K/uL Neut # (Auto) (1.4-6.5) K/uL Lymph # (Auto) (1.2-3.4) K/uL [place] # (Auto) (0.11-0.59) K/uL Eos # (Auto) (0-0.5) K/uL Baso # (Auto) (0-0.2) K/uL ABG pH 7.47 H (7.35-7.45) ABG pCO2 36 (35-46) mmHg ABG pO2 86 (80-95) mm/Hg ABG HCO3 26 H (19-24) mmol/L ABG O2 Saturation 96.9 H (90-95) % ABG Base Excess 2.1 H (-9-1.8) mEq/L [place] Test Pos (Pos) Barometric Pressure 729.2 mm/Hg Oxygen Given ROOM AIR Sodium 143 (136-145) mmol/L Potassium 4.1 (3.5-5.1) mmol/L Chloride 112 H (98-107) mmol/L Carbon Dioxide 26 (21-32) mmol/L Anion Gap 5.0 (3-11) BUN 14 (7-18) mg/dl Creatinine 0.74 (0.6-1.2) mg/dl Est Cr Clr Drug Dosing 50.8 ml/min Est GFR ( Amer) 88.1 Est GFR (Non-Af Amer) 76.0 BUN/Creatinine Ratio 18.6 (10-20) Glucose 89 (70-99) mg/dl Calcium 9.0 (8.5-10.1) mg/dl Total Bilirubin 0.3 (0.2-1) mg/dl Direct Bilirubin 0.1 (0-0.2) mg/dl AST 19 (15-37) U/L ALT 14 (12-78) U/L Alkaline Phosphatase 89 (45-117) U/L Troponin I 0.040 0.061 H* (0-0.045) ng/ml Total Protein 5.7 L (6.4-8.2) gm/dl Albumin 2.8 L (3.4-5.0) gm/dl Triglycerides (0-150) mg/dl Cholesterol (0-200) mg/dl LDL Cholesterol, Calc mg/dl VLDL Cholesterol, Calc mg/dl HDL Cholesterol mg/dl Cholesterol/HDL Ratio 09/17/18 09/17/18 Range/Units 08:48 07:17 WBC 4.10 L (4.8-10.8) K/uL RBC 3.66 L (4.2-5.4) M/uL Hgb 10.5 L (12.0-16.0) g/dL Hct 31.6 L (37-47) % MCV 86.3 (80-100) fL MCH 28.7 (25-34) pg MCHC 33.2 (32-36) g/dL RDW Std Deviation 42.3 (36.4-46.3) fL RDW Coeff of [place] 13.4 (11.5-14.5) % Plt Count 138 (130-400) K/uL MPV 10.3 (7.4-10.4) fL Immature Gran % (Auto) 0.2 % Neut % (Auto) 50.5 % Lymph % (Auto) 35.1 % [place] % (Auto) 10.5 % Eos % (Auto) 3.2 % Baso % (Auto) 0.5 % Immature Gran # (Auto) 0.01 (0.00-0.02) K/uL Neut # (Auto) 2.07 (1.4-6.5) K/uL Lymph # (Auto) 1.44 (1.2-3.4) K/uL [place] # (Auto) 0.43 (0.11-0.59) K/uL Eos # (Auto) 0.13 (0-0.5) K/uL Baso # (Auto) 0.02 (0-0.2) K/uL ABG pH (7.35-7.45) ABG pCO2 (35-46) mmHg ABG pO2 (80-95) mm/Hg ABG HCO3 (19-24) mmol/L ABG O2 Saturation (90-95) % ABG Base Excess (-9-1.8) mEq/L [place] Test (Pos) Barometric Pressure mm/Hg Oxygen Given Sodium (136-145) mmol/L Potassium (3.5-5.1) mmol/L Chloride (98-107) mmol/L Carbon Dioxide (21-32) mmol/L Anion Gap (3-11) BUN (7-18) mg/dl Creatinine (0.6-1.2) mg/dl Est Cr Clr Drug Dosing ml/min Est GFR ( Amer) Est GFR (Non-Af Amer) BUN/Creatinine Ratio (10-20) Glucose (70-99) mg/dl Calcium (8.5-10.1) mg/dl Total Bilirubin (0.2-1) mg/dl Direct Bilirubin (0-0.2) mg/dl AST (15-37) U/L ALT (12-78) U/L Alkaline Phosphatase (45-117) U/L Troponin I (0-0.045) ng/ml Total Protein (6.4-8.2) gm/dl Albumin (3.4-5.0) gm/dl Triglycerides 119 (0-150) mg/dl Cholesterol 113 (0-200) mg/dl LDL Cholesterol, Calc 42 mg/dl VLDL Cholesterol, Calc 24 mg/dl HDL Cholesterol 47 mg/dl Cholesterol/HDL Ratio [address] OF THE HEAD WITHOUT CONTRAST CLINICAL HISTORY: unresponsive, recent CVA COMPARISON STUDY: Head CT September 13, 2018. MRI of the brain September 16, 2018. CT DOSE: 537.48 mGy.cm TECHNIQUE: Helical axial images of the head were obtained without IV contrast. Automated exposure control was utilized for the study. A dose lowering technique was utilized adhering to the principles of ALARA. FINDINGS: No acute intracranial hemorrhage, midline shift or mass effect is present. Ventricular system is stable. Basilar cisterns are patent. There are no extra-axial collections. The small subacute to acute infarcts on MRI of the brain from September 16, 2018 are not evident on this exam due to technique. Old right MCA territory infarct is noted. There is old left temporal lobe infarct as well. White matter hypodensity suggests small vessel disease. No significant calvarial abnormality. IMPRESSION: 1. No acute intracranial hemorrhage or mass effect. 2. The small subacute to acute infarcts on MRI of the brain from September 16, 2018 are not evident on this exam due to technique. 3. Multiple old infarcts, as described above. (1) Stroke CVA mechanism: unspecified Qualified Code(s): I63.9 - Cerebral infarction, unspecified (2) Dementia with behavioral disturbance Dementia type: vascular dementia Qualified Code(s): F01.51 - Vascular demen tia with behavioral disturbance (3) Altered mental status Altered mental status type: unspecified Qualified Code(s): R41.82 - Altered mental status, unspecified (4) Diabetes Diabetes mellitus type: type 2 Diabetes mellitus senior living insulin use: without senior living use Diabetes mellitus complication status: without complication Qualified Code(s): E11.9 - Type 2 diabetes mellitus without complications (5) Aortic stenosis Cardiac valve disease etiology: etiology unspecified Qualified Code(s): I35.0 - Nonrheumatic aortic (valve) stenosis
[2018-09-17] MEDS: clonazePAM 0.5 MG TAB PO SCH ×2 (19:33→21:04)
[2018-09-17] MEDS: MIRABEGRON ER 25 MG TAB PO SCH (19:49)
[2018-09-17] MEDS: CHOLECALCIFEROL 1,000 UNITS TAB PO SCH (19:50)
[2018-09-17] MEDS: MEDICAL MARIJUANA PO SCH (20:58)
[2018-09-17] MEDS ORDERED: ROPINIROLE HCL 0.25 MG TABLET PO SCH (21:00)
[2018-09-17] MEDS ORDERED: OPTIRAY 320 125ml IV PRN (21:35)
--- NOTE | 2018-09-17 21:55 | CT Scan Report ---
CT ANGIOGRAPHY OF THE NECK WITH CONTRAST CLINICAL HISTORY: Acute cerebrovascular accident. COMPARISON STUDY: Carotid ultrasound August 14, 2012. Technique: CT angiography of the carotid and vertebral arteries was obtained using ID [employer] Direct 320 IV and 3D reconstruction on an independent workstation. NASCET criteria was utilized. Automated exposure c ontrol was utilized for the study. A dose lowering technique was utilized adhering to the principles of ALARA. CT DOSE: 497.81 mGy.cm Findings: No cervical lymphadenopathy is present. No significant abnormalities are identified within visualized portions of the lung apices. The epiglottis is normal. No mucosal lesion is identified alt alfredo these may be occult by CT. No cervical spine fracture is noted. There is no dissection within t he major vessels of the neck. The left vertebral artery is dominant and patent. There is extensive ca lcified plaque within the proximal right internal carotid artery without significant stenosis. There is mild plaque within the proximal left internal carotid artery without stenosis. There is no aneurys m within the neck. The CTA of the head will be reported separately. IMPRESSION: 1. No significant stenosis within the major vessels of the neck. No dissection. 2. Extensive plaque within the proximal right internal artery without significant stenosis. Electronically signed by: Chrsi Rdoriguez M.D. 09/17/2018 9:54 PM
--- NOTE | 2018-09-17 21:59 | CT Scan Report ---
CTA ANGIOGRAPHY OF THE HEAD CLINICAL HISTORY: acute CVA COMPARISON STUDY: MRI of the brain September 16, 2018. MRA of the head August 13, 2012. Head CT performed ea arian today. TECHNIQUE: Helical axial images of the head were obtained following uneventful intravenous administr ation of 119 cc of Optiray 320. Automated exposure control was utilized for the study. A dose lower ing technique was utilized adhering to the principles of ALARA. FINDINGS: No acute intracranial hemorrhage, midline shift or mass effect is present. Several old infa rcts are again noted. The small acute to subacute infarcts on MRI of September 16, 2018 are not evident on t his exam due to technique. There is moderate plaque within the bilateral cavernous carotids with mild stenosis. No abrupt vessel cut off is identified on this examination. The posterior circulation is i ntact. There is no intracranial aneurysm. There is no dissection within the major intracranial vessel s. IMPRESSION: 1. No abrupt vessel cut off, aneurysm or dissection within the major intracranial vessels. 2. Multiple old infarcts. 3. The small acute to subacute infarcts on MRI of September 16, 2018 are not evident on this exam due to dif ferences in technique. Electronically signed by: Chris Rodriguez M.D. 09/17/2018 9:57 PM
[2018-09-18] MEDS: METOPROLOL TARTRATE 25 MG TAB PO SCH (09:32)
[2018-09-18] MEDS: CLOPIDOGREL BISULFATE 75 MG TAB PO SCH (09:33)
[2018-09-18] MEDS: ATORVASTATIN 10 MG TAB PO SCH (09:33)
[2018-09-18] MEDS: RIVASTIGMINE TARTRATE 1.5 MG CAP PO SCH (09:34)
[2018-09-18] MEDS: POLYETHYLENE (MIRALAX) 17 GM PACK PO SCH (09:34)
[2018-09-18] MEDS: HEPARIN SOD 5,000 UNIT/0.5 ML VIAL SQ SCH (09:34)
[2018-09-18] MEDS: SENNA 8.6 MG TAB PO SCH (09:34)
[2018-09-18] MEDS: THIAMINE HCL 200 MG in SODIUM CHLORIDE 0.9% 50 ML IV SCH (09:35)
[2018-09-18] MEDS: risperiDONE 0.5 MG TABLET PO SCH ×3 (12:40→16:45)
[2018-09-18] MEDS ORDERED: SOD PHOSPHATE/SOD BIPHOSPHATE ENEMA 132 ML BTL PR STA (15:08)
--- NOTE | 2018-09-18 15:35 | Discharge Summary ---
Date of Service September 18, 2018 Admission HPI Per Admitting Provider The patient is an 82-year-old female initially seen in the emergency department on 08/26/2018, and prescribed cefdinir twice daily for presumptive UTI. On 08/28/2018, the urine culture grew ESBL E. coli, and antibiotics at that time were changed by the ED to Macrobid 100 mg p.o. twice daily for 7 days. Family has noted that the patient continues to have sleeplessness, and increased restlessness and tendencies to try to get up out of bed worsening over the past several days. During this time, her usual medications of Klonopin are not helping her sleep. Principal Diagnosis Acute CVA, encephalopathy Discharge Exam Constitutional WD/WN, vitals as above (restless, doing leg lifts repeatedly) Eyes PERRL, conjunctivae normal, anicteric sclerae Neck trachea midline, no thyromegaly Respiratory normal respiratory effort, lungs clear to auscultation no labored breathing Cardiovascular RRR, no murmur, no edema Gastrointestinal (Abdomen) normal bowel sounds, soft, nontender, no hepatosplenomegaly Musculoskeletal Extremities: extremities normal to inspection; no cyanosis and no clubbing Skin no rashes, warm and dry Neurologic moves all extremities and awake Psychiatric Orientation: alert; + not oriented to place and + not oriented to time Eye Contact: + fair eye contact Motor Behavior: + psychomotor agitation (but improved from yesterday) Discharge Data Allergies Allergy/AdvReac Type Severity Reaction Status Date / Time enalapril Allergy Intermediate Cough Verified 09/13/18 18:49 escitalopram AdvReac Intermediate Hallucinati Verified 09/13/18 18:49 ons Consultations 09/13/18 19:57 ED Decision to Admit Stat 09/13/18 22:19 Consult Case Management - Discharge Planning Routine 09/16/18 20:13 Consult Neurology Routine 09/18/18 15:34 Consult [facility] head of human resources Routine Procedures Performed ECHO Ordered Studies 09/13/18 18:35 CT head/brain wo con Stat 09/15/18 13:56 CT abd pelvis IV con only Urgent 09/16/18 14:27 MR brain wo con Routine 09/17/18 08:44 CT head/brain wo con Stat 09/17/18 18:37 CT angio head w con Routine CT angio neck with con Routine CXR Hospital Course (1) Stroke: MRI brain here with subacute strokes (right temporal lobe, left cerebellum). COuld be embolic in nature. No A-fib on tele during hospital stay-recommend event monitor after discharge although she would not likely be a good anticoagulation candidate given multiple falls out of bed This is the likely cause of her worsening behavior/altered MS (above her baseline issues). Changed asa to plavix. Continue same intensity statin drug as per Neuro recommendations-due to having low cholesterol and if decreased <100, at risk for ICH CTA head/neck without significant stenoses or occlusion Has bioprosthetic aortic valve - echo to r/o thrombus, etc. was negative, no interatrial shunt F/u with Neuro in 1 month PT, OT, speech evals recommend SNF vs 07/12 care--> son and caretakers provide 07/12 care at home. (2) Dementia with behavioral disturbance: Urine cx is negative thus recent behavioral issues not due to lingering UTI. Of note - UTI was treated 3 weeks ago. MRI brain with new strokes - likely culprit for behavioral disturbance. B12, TSH in recent past normal. B1 level pending and should be followed after discharge -continue thiamine supplementation upon discharge CT abd/pelvis without acute process. Risperdal increased to 0.5mg TID this admission for ongoing behavioral issues (3) Altered mental status: Metabolic encephalopathy-likely secondary to stroke upon admission, then apparently improved -then was significantly altered and had decreased respiratory drive, barely responsive to noxious stimuli on the AM of 5/4 secondary likely to previous extra dose of clonazepam and Haldol as sedationfor her MRI- now resolved -Would avoid Haldol in the future (4) Infection due to ESBL-producing Escherichia coli: 3 weeks ago had ESBL e coli UTI. resolved. urine cx negative from this admission. stopped ertapenem. observe off of abx. (5) Diabetes: pre-DM last a1c was 5.8% no Rx (6) Aortic stenosis: h/o s/p bioprosthetic AVR echo to reassess valve in light of new strokes shows valve is functioning normally (7) Fecal impaction: resolved had very large BM on day of discharge (8) Anxiety: followed by psych routinely as an outpatient, thought to be secondary to old strokes in the frontal region cont home med regimen is on medical THC for anxiety per son, prescribed by psychiatry (9) Restless leg syndrome: by description by son-constant moving of legs all nght long -much improved here and improved sleep with Requip-continue on discharge Overnight POx showed no hypoxia at all (10) DVT prophylaxis: heparin BID wa sprovided Disposition-stable for discharge home with previous 07/12 care today Total Time Total Time Spent Total Time Spent (In Minutes): >30 min Total Time Includes: Examination of the Patient, Discharge Planning and Medication Reconciliation Discharge Plan Discharge Items Patient Disposition: Home - Home Health Services Reason For Visit: MDR UTI,CONFUSION Discharge Diagnosis: Stroke Condition: Fair Discharge Goals: Diagnostic testing and Learn about illness Activity: Resume your previous activity Lifting: Gradually increase as tolerated Bathing: No limitations Exercise/Sports: As tolerated Non-emergency contact: Primary Care Provider Call non-emergency contact if: you have any medication questions and your symptoms worsen Follow-up/Referrals: Aurora Estrada MD [Primary Care Provider] - (Please call for an appointment within 1 week ) Diet: Heart Healthy Addtl Provider Instructions: You were admitted with confusion and were found to have a stroke. Your aspirin was discontinued and you were started on a new blood thinner called Plavix. We will arrange for you to wear an event monitor to look for abnormal heart rhythms that can lead to strokes. The nurse from the hospital should contact you about setting this up. Your clonazepam was changed to 0.25mg twice a day and you were started on a m edication for restless legs syndrome called Requip. Please follow up with your PCP within 1 week after discharge. Risk Factors for Stroke: You can reduce your chances of stroke by working with your medical provider to adopt a healthy lifestyle. Some specific ways to lower your chance of stroke are: * If you are a smoker, now is the time to stop smoking cigarettes * If you are diabetic, improve the control of your blood sugars * Avoid excessive amounts of alcohol * Control high blood pressure * Lose weight if you are overweight * Be sure to lead an active lifestyle * Eat a healthy diet low in salt, cholesterol and fat You should know about other risk factors for stroke that you are unable to control. These include: * Age 55 years or older * Male gender * Certain racial groups: , or / * Family History of Stroke, Mini stroke or Heart Attack * Sickle Cell Disease Follow Up: It is important for you to keep your follow up appointments with your medical provider. Who to Call and When: Medical Emergencies: Call 911 immediately if you experience any of the following warning signs and symptoms of Stroke: * Sudden numbness or weakness of the face, arm or leg, especially on one side of the body * Sudden confusion, trouble speaking or understanding * Sudden trouble seeing in one or both eyes * Sudden trouble walking, dizziness, loss of balance or coordination * Sudden severe headache with no cause Do not delay calling 911 if you experience any warning signs or symptoms of a stroke. Delay in seeking medical attention may affect what treatments can be given to you. . Prescriptions: New clopidogrel 75 mg Tablet 75 mg PO QAM Qty: 30 RF: 0 ropinirole 0.25 mg Tablet 0.25 mg PO HS Qty: 30 RF: 0 thiamine HCl (vitamin B1) 100 mg tablet 100 mg PO DAILY Qty: 30 RF: 0 Continued rivastigmine tartrate 1.5 mg capsule 1.5 mg PO QAM RF: 0 atorvastatin 10 mg tablet 10 mg PO QAM RF: 0 lorazepam 0.5 mg tablet 0.5 mg PO DAILY PRN (Reason: Anxiety) RF: 0 docusate sodium 100 mg Capsule 100 mg PO BID PRN (Reason: Constipation) RF: 0 nystatin [Nystop] 100,000 unit/gram powder 1 applic Topical TID PRN (Reason: Skin Irritation) RF: 0 celecoxib 100 mg capsule 100 mg PO PM RF: 0 risperidone 0.5 mg tablet 0.25 mg PO TIDM RF: 0 metoprolol tartrate 25 mg tablet 25 mg PO QAM RF: 0 Myrbetriq 50 mg tablet extended release 24 hr 50 mg PO HS RF: 0 triamcinolone acetonide 0.5 % Cream 1 applic TOPICAL BID RF: 0 tramadol 50 mg tablet 50 mg PO Q24H PRN (Reason: Pain) RF: 0 nystatin-triamcinolone 100,000-0.1 unit/g-% Cream 1 applic TOPICAL BID RF: 0 diclofenac sodium [Voltaren] 1 % gel 1 applic Topical QID PRN (Reason: Pain) RF: 0 cholecalciferol (vitamin D3) [Vitamin D3] 2,000 unit Capsule 2,000 units PO HS RF: 0 acetaminophen [Tylenol Extra Strength] 500 mg Tablet 500 mg PO Q6H PRN (Reason: Pain) RF: 0 methenamine hippurate 1 gram tablet 1 ophthalmic insert PO PM RF: 0 Medical Marijuana 1 applic sublingual HS RF: 0 Changed clonazepam 0.5 mg tablet 0.25 mg PO BID Qty: 0 RF: 0 Discontinued aspirin 81 mg Tablet,Delayed Release (Dr/Ec) 81 mg PO QAM RF: 0 Stand-Alone Forms: [facility] Discharge Orders: Discharge Order (Routine); Ordered 09/18/18 Ordered By: Denisse Caldwell Admission Data Admit Date/Time: 09/13/18 21:27 Attending Provider: Denisse Caldwell Admit Provider: Martin Santos Primary Care Provider: Aurora Estrada V. Other Providers: Martin Santos ; Zonia Spence Service: Telemetry Other Pending Studies at Discharge: No
[2018-09-19 06:35] LABS: Estimated Average Glucose 123 mg/dl
== END 2018-09-18 17:31 | disposition home health service (06) | DRG 64 ==
LOC: ED 17:00 → 4E 21:27 → SUATTDRO 21:27 → 4E 21:54 → 4W 09-14 19:15 → 2S 09-17 09:55

== ENCOUNTER 2018-10-21 16:40 | Inpatient (IN) ==
[2018-10-21 18:06] LABS: Basophils # (auto) 0.02 K/uL (0-0.2); Basophils % (auto) 0.3 %; Eosinophils # (auto) 0.11 K/uL (0-0.5); Eosinophils % (auto) 1.8 %; Hematocrit (blood only) 34.3 % (37-47); Hemoglobin 11.2 g/dL (12.0-16.0); Immature Granulocytes # (auto) 0.01 K/uL (0.00-0.02); Immature Granulocytes % (auto) 0.2 %; Lymphocytes # (auto) 1.74 K/uL (1.2-3.4); Lymphocytes % (auto) 28.4 %; Mean Corpuscular Hgb Conc 32.7 g/dL (32-36); Mean Corpuscular Volume 87.5 fL (80-100); Mean Platelet Volume 10.8 fL (7.4-10.4); Monocytes # (auto) 0.72 K/uL (0.11-0.59); Monocytes % (auto) 11.7 %; Neutrophils # (auto) 3.53 K/uL (1.4-6.5); Neutrophils % (auto) 57.6 %; Platelet Count 171 K/uL (130-400); RDW Coefficient of Variation 12.9 % (11.5-14.5); RDW Standard Deviation 41.6 fL (36.4-46.3); Red Blood Count 3.92 M/uL (4.2-5.4); White Blood Count 6.13 K/uL (4.8-10.8)
--- NOTE | 2018-10-21 18:07 | XRay Report ---
XR chest 1V portable HISTORY: 82 years-old Female Altered mental status acutely altered mental status COMPARISON: Chest radiograph 09/13/2018 TECHNIQUE: Portable AP view of the chest FINDINGS: The patient is rotated which limits the study. Cardiomegaly with prior median sternotomy. Postoperati ve changes suggestive of prior CABG. Subsegmental left basilar opacities suggest atelectasis. There i s no pleural effusion, focal airspace consolidation or overt pulmonary edema. Linear lucencies projec t over the lung apices. Degenerative changes of the shoulders and spine. IMPRESSION: 1. Limited study secondary to positioning. 2. Linear lucencies projecting over the lung apices are favored to be secondary to skin folds. No def inite pneumothorax identified. If there is further clinical concern, a follow-up chest x-ray may be c onsidered. 3. Cardiomegaly without overt pulmonary edema. 4. Mild atelectasis of the left lung base. The above report was generated using voice recognition software. It may contain grammatical, syntax o r spelling errors. Electronically signed by: Suraj Day M.D. 10/21/2018 6:06 PM
[2018-10-21 18:11] LABS: Appearance Urine Clear (Clear); Bacteria Urine Automated Negative (Negative); Bilirubin Urine Negative (Negative); Blood Urine Negative (Negative); Color Urine Dark Yellow; Epithelial Cell Urine Auto >30 /lpf (0-5); Glucose Urine UA Negative (Negative); Ketones Urine Trace (Negative); Leukocyte Esterase Urine Negative (Negative); Nitrite Urine Negative (Negative); Protein Urine Trace (Negative); RBC Urine Automated 0-4 /hpf (0-4); Specific Gravity Urine 1.027 (1.000-1.030); Urobilinogen Urine Negative (Negative)
[2018-10-21 18:18] LABS: INR 1.1 (0.9-1.1); Partial Thromboplastin Ratio 0.8; Partial Thromboplastin Time 22.2 Seconds (21.0-31.0); Prothrombin Time 10.9 Seconds (9.0-12.0)
[2018-10-21 18:21] LABS: Amphetamines+Metham, Urine Neg (Neg); Barbiturates, Urine Neg (Neg); Benzodiazepine, Urine Neg (Neg); Cocaine, Urine Neg (Neg); MDMA (Ecstacy), Urine Neg (Neg); Methadone, Urine Neg (Neg); Opiate, Urine Neg (Neg); Phencyclidine, Urine Neg (Neg)
[2018-10-21 18:32] LABS: Alanine Aminotransferase 15 U/L (12-78); Albumin Level 3.7 gm/dl (3.4-5.0); Aspartate Aminotransferase 16 U/L (15-37); BUN Creatinine Ratio 25.1 (10-20); Blood Urea Nitrogen 26 mg/dl (7-18); Calcium 9.3 mg/dl (8.5-10.1); Carbon Dioxide 27 mmol/L (21-32); Chloride 111 mmol/L (98-107); Est GFR (African American) 57.7; Est GFR (Non-African American) 49.8; Glucose 115 mg/dl (70-99); Potassium 3.6 mmol/L (3.5-5.1); Sodium 143 mmol/L (136-145)
[2018-10-21 18:43] LABS: Albumin Globulin Ratio 1.2 (0.9-2); Alkaline Phosphatase 98 U/L (45-117); Bilirubin,Total 0.6 mg/dl (0.2-1); Globulin 3.1 gm/dl (2.5-4.0); Total Protein 6.8 gm/dl (6.4-8.2); Troponin I < 0.015 ng/ml (0-0.045)
--- NOTE | 2018-10-21 18:52 | CT Scan Report ---
CT abd pelvis wo con CLINICAL HISTORY: 82 years-old Female presenting with dementia, altered mental status, concern for ob struction. TECHNIQUE: Multidetector CT of the abdomen and pelvis was performed without the use of intravenous co ntrast. IV contrast: None. One or more dose lowering techniques were used consistent with the princip les of ALARA (as low as reasonably achievable), including automatic exposure control, mA or kV adjust ment to individual patient size, and/or use of iterative reconstruction. COMPARISON: 09/15/2018 CT DOSE (mGy.cm): The estimated cumulative dose is 504.17 mGy.cm. FINDINGS: Manager Presentation topogram: Median sternotomy wires and mitral valve ring noted. Lung bases: Multichamber enlargement of the heart. Coronary artery, aortic valve, and mitral annular calcification. No pericardial or pleural effusion. Minimal dependent changes likely atelectasis. Liver: Normal morphology. Normal density. Biliary: Extra hepatic biliary ductal dilatation. No radiodense gallstone is apparent. The degree of dilatation is unchanged from prior. Gallbladder contains gallstones. Pancreas: Moderate parenchymal atrophy. Spleen: Normal noncontrast appearance. Adrenal glands: Normal noncontrast appearance. Kidneys and ureters: Well-defined hypodensities in the kidneys likely simple cysts. No nephrolithiasi s or hydronephrosis. Ureters nondistended. Bladder: Incompletely evaluated secondary to underdistention. Pelvic organs: Uterus surgically absent. Bowel: Rectal descent suggested with evidence of pelvic floor laxity diverticulosis of the sigmoid co vicenta without wall thickening or pericolonic inflammatory change. The appendix is normal. No bowel obst ruction. Peritoneal cavity: No free fluid or intraperitoneal gas. Lymph nodes: No gross lymphadenopathy allowing for noncontrast technique. Vasculature: Atherosclerosis of the normal caliber abdominal aorta. Abdominal wall: Normal. Musculoskeletal: Degenerative changes of the spine. Inferior endplate concavity at L3 consistent with a chronic compression deformity. Degenerative related anterolisthesis of L5 on S1. IMPRESSION: 1. Allowing for noncontrast technique, no acute intra-abdominal pathology. No bowel obstruction. 2. Cholelithiasis with chronic extrahepatic biliary ductal dilatation. Choledocholithiasis is theref ore not favored. 3. Pelvic floor laxity. 4. Cardiomegaly. Electronically signed by: Herbert Farias M.D. 10/21/2018 6:51 PM
--- NOTE | 2018-10-21 18:56 | CT Scan Report ---
CT head/brain wo con CLINICAL HISTORY: 82 years-old Female with increasing weakness. Acute weakness TECHNIQUE: Multiple axial CT images of the head were obtained without contrast. A dose lowering tech nique was utilized adhering to the principles of ALARA. CT DOSE: 1074.96 mGy.cm COMPARISON: CT head 09/17/2018. FINDINGS: No acute intracranial hemorrhage, midline shift, intracranial mass, hydrocephalus, territorial ischem ia or abnormal extra-axial collection. Age-related involutional changes with severe chronic microvasc ular ischemic disease. 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 Remote infarct about the periventricular left temporal parietal lobe also redemonstrated. Remote lacunar inf arction of the left thalamus with remote lacunar infarctions of the basal ganglia, unchanged. Study i s mildly motion degraded. Cerebral vascular calcifications are noted. The calvarium is intact. Prior bilateral cataract repair. The paranasal sinuses, mastoid air cells, a nd middle ear cavities are clear. IMPRESSION: 1. Motion degraded exam without acute intracranial abnormality identified. 2. Chronic findings as above. The above report was generated using voice recognition software. It may contain grammatical, syntax o r spelling errors. Electronically signed by: Suraj Day M.D. 10/21/2018 6:54 PM
--- NOTE | 2018-10-21 19:25 | Emergency Department Note ---
Entered by Inna Jackson acting as a scribe for History of Present Illness General Chief complaint: Confusion Stated complaint: DIARRHEA, NO APPETITE, MENTAL CHANGE Time Seen by Provider: 10/21/18 17:48 Source: patient and family Mode of arrival: wheelchair Limitations: altered mental status History of Present Illness Onset (ago): day(s) 2 Location: head Radiation: non-radiation Pain Consistency: + constant Maximum Pain Intensity: 8 Relieved By: + none Exacerbated By: + none Associated symptoms: + other (+abdominal pain, +back pain, +diarrhea); no fever/chills Treatments prior to arrival: none The patient is an 82 year old female who presents to the ED with complaints of altered mental status. She is accompanied by several family members. Her family states she has complained of abdominal pain, back pain and diarrhea recently. The patient has also stopped eating regularly and seems to be more confused. They note her Psychiatrist, Dr. Melton, recently stopped her Ropinirole and Divalproex. The patient does have a history of previous mini strokes. The family denies any recent fevers. They also note the patient has a history of C-Diff and antibiotic resistant infections. Home Medications Home Medications Medication Instructions Recorded Confirmed Type atorvastatin 10 mg PO QAM 04/04/18 10/21/18 History celecoxib 100 mg PO PM 04/04/18 10/21/18 History cholecalciferol (vitamin D3) 2,000 units PO HS 04/04/18 10/21/18 History [Vitamin D3] docusate sodium 100 mg PO Q2D PRN 04/04/18 10/21/18 History metoprolol tartrate 25 mg PO QAM 04/04/18 10/21/18 History mirabegron 50 mg PO HS 04/04/18 10/21/18 History risperidone 0.25 mg PO TIDM 04/04/18 10/21/18 History rivastigmine tartrate 1.5 mg PO QAM 04/04/18 10/21/18 History acetaminophen [Tylenol Extra 500 mg PO BID 08/26/18 10/21/18 History Strength] clopidogrel 75 mg PO QAM #30 tab 09/18/18 10/21/18 Rx clonazepam 0.25 mg PO QPM 10/21/18 10/21/18 History nitrofurantoin monohyd/m-cryst 100 mg PO AMPM 10/21/18 10/21/18 History thiamine HCl (vitamin B1) [Vitamin 250 mg PO QAM 10/21/18 10/21/18 History B-1] Allergies Allergy/AdvReac Type Severity Reaction Status Date / Time enalapril Allergy Intermediate Cough Verified 10/21/18 22:04 escitalopram AdvReac Intermediate Hallucinati Verified 10/21/18 22:04 ons Past Med/Surg History Medical History Diabetes (Chronic) Heart disease (Chronic) Hypertension (Chronic) Aortic stenosis (Chronic) Anxiety (Chronic) Stroke (Chronic) Family History Other Cancer Hypertension Social History Preferred Language: Korean Communication Ability: Unable Beliefs That Will Affect Care: None Current Living Situation: Family Feels Safe at Home: Yes Smoking Status: Never smoker Hx Alcohol Use: No Hx Substance Use: Yes substance use type: marijuana Review of Systems See HPI for pertinent positives & negatives. Unobtainable due to cognitive status Physical Exam Vital Signs Vital Signs - 24 hr 10/21/18 16:47 10/21/18 17:42 10/21/18 18:00 Temperature 36.8 C Temperature Source Oral Sepsis Recent Fever Within 48 Hours No Sepsis Action Taken by Nursing No Action Required Pulse Rate 85 74 75 Pulse Rate from SpO2 Sensor Respiratory Rate 18 17 21 Respiratory Effort / Characteristics Non-Labored Spontaneous Respiratory Depth Normal Respiratory Pattern Regular Blood Pressure 119/75 Blood Pressure Mean 89 Blood Pressure Position Sitting Pulse Oximetry 98 96 97 Oxygen Delivery Method Room Air Room Air Room Air 10/21/18 18:43 10/21/18 19:00 10/21/18 19:22 Temperature Temperature Source Sepsis Recent Fever Within 48 Hours Sepsis Action Taken by Nursing Pulse Rate 73 73 72 Pulse Rate from SpO2 Sensor Respiratory Rate 16 21 17 Respiratory Effort / Characteristics Respiratory Depth Respiratory Pattern Blood Pressure 144/75 H 144/95 H Blood Pressure Mean 98 111 Blood Pressure Position Pulse Oximetry 97 95 Oxygen Delivery Method Room Air Room Air 10/21/18 19:30 10/21/18 20:00 10/21/18 20:01 Temperature Temperature Source Sepsis Recent Fever Within 48 Hours Sepsis Action Taken by Nursing Pulse Rate 79 87 84 Pulse Rate from SpO2 Sensor Respiratory Rate 15 18 17 Respiratory Effort / Characteristics Respiratory Depth Respiratory Pattern Blood Pressure 179/84 H Blood Pressure Mean 115 Blood Pressure Position Pulse Oximetry Oxygen Delivery Method 10/21/18 20:30 10/21/18 21:00 10/21/18 21:01 Temperature Temperature Source Sepsis Recent Fever Within 48 Hours Sepsis Action Taken by Nursing Pulse Rate 83 77 81 Pulse Rate from SpO2 Sensor 77 82 Respiratory Rate 16 22 23 Respiratory Effort / Characteristics Respiratory Depth Respiratory Pattern Blood Pressure 172/99 H Blood Pressure Mean 123 Blood Pressure Position Pulse Oximetry 96 96 Oxygen Delivery Method Room Air Room Air 10/21/18 21:30 Temperature Temperature Source Sepsis Recent Fever Within 48 Hours Sepsis Action Taken by Nursing Pulse Rate 80 Pulse Rate from SpO2 Sensor 80 Respiratory Rate 18 Respiratory Effort / Characteristics Respiratory Depth Respiratory Pattern Blood Pressure Blood Pressure Mean Blood Pressure Position Pulse Oximetry 97 Oxygen Delivery Method Room Air General: Chronically ill-appearing older female, in no acute distress. HEENT: Normal cephalic atraumatic. Pupils are equal round and reactive to light. Extraocular movements are intact. Oropharynx is pink with moist mucous membranes. No swelling of the mouth lips or tongue. Neck: Supple with a midline trachea. No meningeal signs or stiffness, no JVD or bruits. No Stridor. Chest: Clear to auscultation bilaterally. No wheezes or rhonchi. No increased work of breathing. Heart: regular rate and rhythm. Abdomen: Soft nontender, nondistended without rebound guarding or rigidity. Extremities: No cyanosis clubbing or edema. No calf tenderness or asymmetry Spine/Back. Non tender to palpation. No CVA tenderness Skin: Good turgor without rashes. Neurologic exam: Patient speaks few words, but follows commands, family states this is baseline, moves all 4 extremities. Cranial nerves two through 12 are intact. Motor and sensation are intact and symmetrical throughout. Course 1748: The patient was evaluated in room B11 and a complete history and physical were performed. 2034: I reevaluated the patient. She is resting comfortably. I discussed her results and my recommendation she remain in the hospital for further evaluation and management and she and her family verbalized complete understanding and agreement. 2045: [facility] The patient will be further evaluated. Consultations Consultation #1: I discussed the patients case with Dr. Krause [facility]. The patient will be further evaluated. Time: 20:46 Administered Medications Tramadol HCl (Ultram) 50 mg PO Q24H PRN PRN Reason: Pain Stop: 11/20/18 23:00 Last Admin: 10/22/18 00:11 Dose: 50 mg Documented by: [id number] Discontinued Medications Sodium Chloride (Nss) 500 mls @ 999 mls/hr IV .Q31M ONE Stop: 10/21/18 21:03 Last Infusion: 10/21/18 21:16 Dose: 0 mls/hr Documented by: [id number] Admin: 10/21/18 20:45 Dose: 999 mls/hr Documented by: [id number] Medical Decision Making Differential Diagnosis The differential diagnoses considered include intracranial process, medication side effect, infection, cardiac disease, electrolyte or metabolic abnormality. Medical Records Attestation: I reviewed the patient's medical records. Home Medications Current Medication List: was personally reviewed by me Laboratory Data Attestation: I reviewed the patient's lab results. Result diagrams: 10/21/18 17:28 10/21/18 17:28 Lab Results 10/21/18 10/21/18 10/21/18 Range/Units 17:28 17:28 17:28 WBC 6.13 (4.8-10.8) K/uL RBC 3.92 L (4.2-5.4) M/uL Hgb 11.2 L (12.0-16.0) g/dL Hct 34.3 L (37-47) % MCV 87.5 (80-100) fL MCH 28.6 (25-34) pg MCHC 32.7 (32-36) g/dL RDW Std Deviation 41.6 (36.4-46.3) fL RDW Coeff of [place] 12.9 (11.5-14.5) % Plt Count 171 (130-400) K/uL MPV 10.8 H (7.4-10.4) fL Immature Gran % (Auto) 0.2 % Neut % (Auto) 57.6 % Lymph % (Auto) 28.4 % [place] % (Auto) 11.7 % Eos % (Auto) 1.8 % Baso % (Auto) 0.3 % Immature Gran # (Auto) 0.01 (0.00-0.02) K/uL Neut # (Auto) 3.53 (1.4-6.5) K/uL Lymph # (Auto) 1.74 (1.2-3.4) K/uL [place] # (Auto) 0.72 H (0.11-0.59) K/uL Eos # (Auto) 0.11 (0-0.5) K/uL Baso # (Auto) 0.02 (0-0.2) K/uL PT 10.9 (9.0-12.0) Seconds INR 1.1 (0.9-1.1) APTT 22.2 (21.0-31.0) Seconds PTT Ratio 0.8 Sodium 143 (136-145) mmol/L Potassium 3.6 (3.5-5.1) mmol/L Chloride 111 H (98-107) mmol/L Carbon Dioxide 27 (21-32) mmol/L Anion Gap 5.0 (3-11) BUN 26 H (7-18) mg/dl Creatinine 1.05 (0.6-1.2) mg/dl Est Cr Clr Drug Dosing Not Reportable Est GFR ( Amer) 57.7 Est GFR (Non-Af Amer) 49.8 BUN/Creatinine Ratio 25.1 H (10-20) Glucose 115 H (70-99) mg/dl Lactate (0.4-2.0) mmol/L Calcium 9.3 (8.5-10.1) mg/dl Magnesium 2.0 (1.8-2.4) mg/dl Total Bilirubin 0.6 (0.2-1) mg/dl AST 16 (15-37) U/L ALT 15 (12-78) U/L Alkaline Phosphatase 98 (45-117) U/L Troponin I < 0.015 (0-0.045) ng/ml Total Protein 6.8 (6.4-8.2) gm/dl Albumin 3.7 (3.4-5.0) gm/dl Globulin 3.1 (2.5-4.0) gm/dl Albumin/Globulin Ratio 1.2 (0.9-2) TSH 0.764 (0.300-4.500) uIu/ml Urine Color Urine Appearance (Clear) Urine pH (4.5-7.5) Ur Specific [place] (1.000-1.030) Urine Protein (Negative) Urine Glucose (UA) (Negative) Urine Ketones (Negative) Urine Blood (Negative) Urine Nitrite (Negative) Urine Bilirubin (Negative) Urine Urobilinogen (Negative) Ur Leukocyte Esterase (Negative) Urine WBC (Auto) (0-5) /hpf Urine RBC (Auto) (0-4) /hpf U Hyaline Cast (Auto) (0-5) /lpf U Epithel Cells (Auto) (0-5) /lpf Urine Bacteria (Auto) (Negative) Urine Opiates Screen (Neg) Ur Methadone, Qual (Neg) Urine Barbiturates (Neg) Valproic Acid (50-100) mcg/ml Ur Phencyclidine (PCP) (Neg) U Amphetamin/Meth Scrn (Neg) MDMA (Ecstasy) Screen (Neg) U Benzodiazepines Scrn (Neg) Ur Cocaine Metabolite (Neg) U Marijuana (THC) Screen (Neg) 10/21/18 10/21/18 10/21/18 Range/Units 17:28 17:28 18:20 WBC (4.8-10.8) K/uL RBC (4.2-5.4) M/uL Hgb (12.0-16.0) g/dL Hct (37-47) % MCV (80-100) fL MCH (25-34) pg MCHC (32-36) g/dL RDW Std Deviation (36.4-46.3) fL RDW Coeff of [place] (11.5-14.5) % Plt Count (130-400) K/uL MPV (7.4-10.4) fL Immature Gran % (Auto) % Neut % (Auto) % Lymph % (Auto) % [place] % (Auto) % Eos % (Auto) % Baso % (Auto) % Immature Gran # (Auto) (0.00-0.02) K/uL Neut # (Auto) (1.4-6.5) K/uL Lymph # (Auto) (1.2-3.4) K/uL [place] # (Auto) (0.11-0.59) K/uL Eos # (Auto) (0-0.5) K/uL Baso # (Auto) (0-0.2) K/uL PT (9.0-12.0) Seconds INR (0.9-1.1) APTT (21.0-31.0) Seconds PTT Ratio Sodium (136-145) mmol/L Potassium (3.5-5.1) mmol/L Chloride (98-107) mmol/L Carbon Dioxide (21-32) mmol/L Anion Gap (3-11) BUN (7-18) mg/dl Creatinine (0.6-1.2) mg/dl Est Cr Clr Drug Dosing Est GFR ( Amer) Est GFR (Non-Af Amer) BUN/Creatinine Ratio (10-20) Glucose (70-99) mg/dl Lactate 0.8 (0.4-2.0) mmol/L Calcium (8.5-10.1) mg/dl Magnesium (1.8-2.4) mg/dl Total Bilirubin (0.2-1) mg/dl AST (15-37) U/L ALT (12-78) U/L Alkaline Phosphatase (45-117) U/L Troponin I (0-0.045) ng/ml Total Protein (6.4-8.2) gm/dl Albumin (3.4-5.0) gm/dl Globulin (2.5-4.0) gm/dl Albumin/Globulin Ratio (0.9-2) TSH (0.300-4.500) uIu/ml Urine Color Dark Yellow Urine Appearance Clear (Clear) Urine pH 5.0 (4.5-7.5) Ur Specific [place] 1.027 (1.000-1.030) Urine Protein Trace H (Negative) Urine Glucose (UA) Negative (Negative) Urine Ketones Trace H (Negative) Urine Blood Negative (Negative) Urine Nitrite Negative (Negative) Urine Bilirubin Negative (Negative) Urine Urobilinogen Negative (Negative) Ur Leukocyte Esterase Negative (Negative) Urine WBC (Auto) 1-5 (0-5) /hpf Urine RBC (Auto) 0-4 (0-4) /hpf U Hyaline Cast (Auto) 1-5 (0-5) /lpf U Epithel Cells (Auto) >30 H (0-5) /lpf Urine Bacteria (Auto) Negative (Negative) Urine Opiates Screen Neg (Neg) Ur Methadone, Qual Neg (Neg) Urine Barbiturates Neg (Neg) Valproic Acid (50-100) mcg/ml Ur Phencyclidine (PCP) Neg (Neg) U Amphetamin/Meth Scrn Neg (Neg) MDMA (Ecstasy) Screen Neg (Neg) U Benzodiazepines Scrn Neg (Neg) Ur Cocaine Metabolite Neg (Neg) U Marijuana (THC) Screen Neg (Neg) 10/21/18 Range/Units 18:20 WBC (4.8-10.8) K/uL RBC (4.2-5.4) M/uL Hgb (12.0-16.0) g/dL Hct (37-47) % MCV (80-100) fL MCH (25-34) pg MCHC (32-36) g/dL RDW Std Deviation (36.4-46.3) fL RDW Coeff of [place] (11.5-14.5) % Plt Count (130-400) K/uL MPV (7.4-10.4) fL Immature Gran % (Auto) % Neut % (Auto) % Lymph % (Auto) % [place] % (Auto) % Eos % (Auto) % Baso % (Auto) % Immature Gran # (Auto) (0.00-0.02) K/uL Neut # (Auto) (1.4-6.5) K/uL Lymph # (Auto) (1.2-3.4) K/uL [place] # (Auto) (0.11-0.59) K/uL Eos # (Auto) (0-0.5) K/uL Baso # (Auto) (0-0.2) K/uL PT (9.0-12.0) Seconds INR (0.9-1.1) APTT (21.0-31.0) Seconds PTT Ratio Sodium (136-145) mmol/L Potassium (3.5-5.1) mmol/L Chloride (98-107) mmol/L Carbon Dioxide (21-32) mmol/L Anion Gap (3-11) BUN (7-18) mg/dl Creatinine (0.6-1.2) mg/dl Est Cr Clr Drug Dosing Est GFR ( Amer) Est GFR (Non-Af Amer) BUN/Creatinine Ratio (10-20) Glucose (70-99) mg/dl Lactate (0.4-2.0) mmol/L Calcium (8.5-10.1) mg/dl Magnesium (1.8-2.4) mg/dl Total Bilirubin (0.2-1) mg/dl AST (15-37) U/L ALT (12-78) U/L Alkaline Phosphatase (45-117) U/L Troponin I (0-0.045) ng/ml Total Protein (6.4-8.2) gm/dl Albumin (3.4-5.0) gm/dl Globulin (2.5-4.0) gm/dl Albumin/Globulin Ratio (0.9-2) TSH (0.300-4.500) uIu/ml Urine Color Urine Appearance (Clear) Urine pH (4.5-7.5) Ur Specific [place] (1.000-1.030) Urine Protein (Negative) Urine Glucose (UA) (Negative) Urine Ketones (Negative) Urine Blood (Negative) Urine Nitrite (Negative) Urine Bilirubin (Negative) Urine Urobilinogen (Negative) Ur Leukocyte Esterase (Negative) Urine WBC (Auto) (0-5) /hpf Urine RBC (Auto) (0-4) /hpf U Hyaline Cast (Auto) (0-5) /lpf U Epithel Cells (Auto) (0-5) /lpf Urine Bacteria (Auto) (Negative) Urine Opiates Screen (Neg) Ur Methadone, Qual (Neg) Urine Barbiturates (Neg) Valproic Acid < 3 L (50-100) mcg/ml Ur Phencyclidine (PCP) (Neg) U Amphetamin/Meth Scrn (Neg) MDMA (Ecstasy) Screen (Neg) U Benzodiazepines Scrn (Neg) Ur Cocaine Metabolite (Neg) U Marijuana (THC) Screen (Neg) Imaging Data Radiologist's Impression: Radiology results as stated below per my review and the radiologist's interpretation: CT head/brain wo con CLINICAL HISTORY: 82 years-old Female with increasing weakness. Acute weakness TECHNIQUE: Multiple axial CT images of the head were obtained without contrast. A dose lowering technique was utilized adhering to the principles of ALARA. CT DOSE: 1074.96 mGy.cm COMPARISON: CT head 09/17/2018. FINDINGS: No acute intracranial hemorrhage, midline shift, intracranial mass, hydrocephalus, territorial ischemia or abnormal extra-axial collection. Age- related involutional changes with severe chronic microvascular ischemic disease. 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 Remote infarct about the periventricular left temporal parietal lobe also redemonstrated. Remote lacunar infarction of the left thalamus with remote lacunar infarctions of the basal ganglia, unchanged. Study is mildly motion degraded. Cerebral vascular calcifications are noted. The calvarium is intact. Prior bilateral cataract repair. The paranasal sinuses, mastoid air cells, and middle ear cavities are clear. IMPRESSION: 1. Motion degraded exam without acute intracranial abnormality identified. 2. Chronic findings as above. The above report was generated using voice recognition software. It may contain grammatical, syntax or spelling errors. Electronically signed by: Suraj Day M.D. 10/21/2018 6:[address] abd pelvis wo con CLINICAL HISTORY: 82 years-old Female presenting with dementia, altered mental status, concern for obstruction. TECHNIQUE: Multidetector CT of the abdomen and pelvis was performed without the use of intravenous contrast. IV contrast: None. One or more dose lowering techniques were used consistent with the principles of ALARA (as low as reasonably achievable), including automatic exposure control, mA or kV adjustment to individual patient size, and/or use of iterative reconstruction. COMPARISON: 09/15/2018 CT DOSE (mGy.cm): The estimated cumulative dose is 504.17 mGy.cm. FINDINGS: Design Lead topogram: Median sternotomy wires and mitral valve ring noted. Lung bases: Multichamber enlargement of the heart. Coronary artery, aortic valve, and mitral annular calcification. No pericardial or pleural effusion. Minimal dependent changes likely atelectasis. Liver: Normal morphology. Normal density. Biliary: Extra hepatic biliary ductal dilatation. No radiodense gallstone is apparent. The degree of dilatation is unchanged from prior. Gallbladder contains gallstones. Pancreas: Moderate parenchymal atrophy. Spleen: Normal noncontrast appearance. Adrenal glands: Normal noncontrast appearance. Kidneys and ureters: Well-defined hypodensities in the kidneys likely simple cysts. No nephrolithiasis or hydronephrosis. Ureters nondistended. Bladder: Incompletely evaluated secondary to underdistention. Pelvic organs: Uterus surgically absent. Bowel: Rectal descent suggested with evidence of pelvic floor laxity diverticulosis of the sigmoid colon without wall thickening or pericolonic inflammatory change. The appendix is normal. No bowel obstruction. Peritoneal cavity: No free fluid or intraperitoneal gas. Lymph nodes: No gross lymphadenopathy allowing for noncontrast technique. Vasculature: Atherosclerosis of the normal caliber abdominal aorta. Abdominal wall: Normal. Musculoskeletal: Degenerative changes of the spine. Inferior endplate concavity at L3 consistent with a chronic compression deformity. Degenerative related anterolisthesis of L5 on S1. IMPRESSION: 1. Allowing for noncontrast technique, no acute intra-abdominal pathology. No bowel obstruction. 2. Cholelithiasis with chronic extrahepatic biliary ductal dilatation. Choled ocholithiasis is therefore not favored. 3. Pelvic floor laxity. 4. Cardiomegaly. Electronically signed by: Herbert Farias M.D. 10/21/2018 6:51 PM XR chest 1V portable HISTORY: 82 years-old Female Altered mental status acutely altered mental status COMPARISON: Chest radiograph 09/13/2018 TECHNIQUE: Portable AP view of the chest FINDINGS: The patient is rotated which limits the study. Cardiomegaly with prior median sternotomy. Postoperative changes suggestive of prior CABG. Subsegmental left basilar opacities suggest atelectasis. There is no pleural effusion, focal airspace consolidation or overt pulmonary edema. Linear lucencies project over the lung apices. Degenerative changes of the shoulders and spine. IMPRESSION: 1. Limited study secondary to positioning. 2. Linear lucencies projecting over the lung apices are favored to be secondary to skin folds. No definite pneumothorax identified. If there is further clinical concern, a follow-up chest x-ray may be considered. 3. Cardiomegaly without overt pulmonary edema. 4. Mild atelectasis of the left lung base. The above report was generated using voice recognition software. It may contain grammatical, syntax or spelling errors. Electronically signed by: Suraj Day M.D. 10/21/2018 6:06 PM ECG Data Attestation: I personally reviewed and interpreted this ECG as follows: Indication: other (altered mental status) Rate (beats per minute): 75 Rhythm: normal sinus Findings: + LBBB, + acute ischemic change and + left axis deviation Comparison ECG Date: from (09/17/2018) Change: no significant change Blood Pressure Blood Pressure Findings: Elevated blood pressure Blood Pressure Disposition: further management by hospitalist JACQUE Narrative This patient comes in as described above. She was placed in room B 11. She is brought in by her family. She has multiple complaints. she has had diarrhea and weakness. She has had multiple strokes. She may have been complaining some abdominal pain as well. Family says she has no new neurologic deficits. An extensive work-up was done to evaluate for infection neurologic and other e tiologies this included CAT scan of her head as well as abdomen, EKG, urinalysis and multiple blood testing. She was reassessed frequently. She is difficult to evaluate due to her baseline neurologic exam. Family is concerned that she is weaker and not swallowing. It is possible that she could have had another stroke. They have been trying to feed her home but she will not eat or drink anything. She was hydrated with IV normal saline. I do think she needs to be admitted/observe for hydration further treatment and evaluation. I have consulted Dr. Krause to see in the ER for these measures. Impression & Plan Weakness, Dehydration, Diarrhea Discharge Plan Visit Data *Final* Discharge Date/Time: 10/21/18 22:48 Chief Complaint: Confusion Stated Complaint: DIARRHEA, NO APPETITE, MENTAL CHANGE ED Provider: Ruddy Green Discharge Problem: Weakness, Dehydration, Diarrhea Patient Disposition: Admitted As Inpatient Discharge Instructions Interventions: ED Discharge Assessment Last Done: 10/21/18 22:48 The scribe's documentation has been prepared under my direction and personally reviewed by me in its entirety. I confirm that the note above accurately reflects all work, treatment, procedures, and medical decision making performed by me.
[2018-10-21] MEDS ORDERED: SODIUM CHLORIDE 0.9% 500 ML IV ONE (20:33)
--- NOTE | 2018-10-21 21:27 | History & Physical Report ---
Date of Service October 21, 2018 Assessment & Plan (1) Abdominal pain: Ms. Easley is an 82 year old female with a past medical history of C. diff, GI bleed, depression, dementia, CHF, prior stroke, aortic stenosis s/p bioprosthetic valve replacement, hypertension, restless leg syndrome who came to the ED from home today due to a 2-week history of on and off diarrhea, abdominal pain and poor p.o. intake. History is provided by her son due to dementia. Per her son, she is minimally verbal. -admit to med/surg -unsure of cause of abdominal pain and diarrhea given history is limited -normal WCC, LFTs WNL. -CT abdo/pelvis shows cholelithiasis w/extrahepatic biliary ductal dilation. Unsure of chronicity of this given it was mentioned on CT in 09/15 but not 06/28. -> will order abdominal u/s to evaluate biliary tree -stool cx and c diff toxin ordered -bcx ordered and pending -pt's son reports that tramadol works well for her agitation/pain - will order 50mg prn -IVF ordered, NS at 100mls/hr x2 bags CHF -ECHO in 2014 shows an EF of 45-50% UTI/Urinary incontinence -on macrobid 100mg BID x1 month -will continue this here -follows w/Dr. Viveros in outpatient setting -mirabegron non-formulary here Hx of stroke -continue plavix and atorvastatin -speech consult ordered as pt's son describes hx of trouble swallowing and pocketing Hypertension -continue metoprolol Anxiety/Dementia -continue risperidone, rivastigmine and clonazepam -1:1 sitter ordered given pt frequently tries to get out of bed and is a fall risk Chronic Pain -continue celecoxib and scheduled tylenol Restless Leg Syndrome -ropinirole was recently stopped. Per son, this was not helping her symptoms Code status: DNR per son/POA. DVT Prophylaxis: Heparin 5,000 SQ q12h Disposition: admit to med/surg (2) Diarrhea: (3) Weakness: (4) Dehydration: (5) DVT prophylaxis: (6) Hyperlipidemia: (7) Dementia with behavioral disturbance: (8) Hypertension: (9) Aortic stenosis: (10) Anxiety: (11) Stroke: (12) CHF (congestive heart failure): History of Present Illness Primary Care Provider: Aurora Estrada MD Ms. Easley is an 82 year old female with a past medical history of C. diff, GI bleed, depression, dementia, CHF, prior stroke, aortic stenosis s/p bioprosthetic valve replacement, hypertension, restless leg syndrome who came to the ED from home today due to a 2-week history of on and off diarrhea, abdominal pain and poor p.o. intake. History is provided by her son due to dementia. Per her son, she is minimally verbal. She is unable to characterize her abdominal pain, but did state that she did not want to eat because of her abdominal pain. Her son notes that she does not normally complain of pain after eating. Initially, her son felt that this was related to a medication (valproic acid) that was started by her psychiatrist for anxiety recently. This was, however discontinued, and the patient continued to complain of abdominal pain and had diarrhea. Hemoccult to 4 episodes of diarrhea, that has been on and off for the past 2 weeks. The diarrhea is described as explosive, watery, without the presence of blood. They state that she has not had any fever or chills at home, and has not had any other complaints. The patient's son reports that her behavior is at baseline, however she has been slightly more agitated of late. She was started on macrobid BID by Dr. Viveros for a recurrent UTI. She is meant to be on this for 1 month. Of note, she lives at home with her two daughters. She also has two nurses that come in for 14 hours a day. Her son states that this arrangement works out well for them. Allergies Allergy/AdvReac Type Severity Reaction Status Date / Time enalapril Allergy Intermediate Cough Verified 10/21/18 22:04 escitalopram AdvReac Intermediate Hallucinati Verified 10/21/18 22:04 ons Home Medications Home Medications Medication Instructions Recorded Confirmed Type atorvastatin 10 mg PO QAM 04/04/18 10/21/18 History celecoxib 100 mg PO PM 04/04/18 10/21/18 History cholecalciferol (vitamin D3) 2,000 units PO HS 04/04/18 10/21/18 History [Vitamin D3] docusate sodium 100 mg PO Q2D PRN 04/04/18 10/21/18 History metoprolol tartrate 25 mg PO QAM 04/04/18 10/21/18 History mirabegron 50 mg PO HS 04/04/18 10/21/18 History risperidone 0.25 mg PO TIDM 04/04/18 10/21/18 History rivastigmine tartrate 1.5 mg PO QAM 04/04/18 10/21/18 History acetaminophen [Tylenol Extra 500 mg PO BID 08/26/18 10/21/18 History Strength] clopidogrel 75 mg PO QAM #30 tab 09/18/18 10/21/18 Rx clonazepam 0.25 mg PO QPM 10/21/18 10/21/18 History nitrofurantoin monohyd/m-cryst 100 mg PO AMPM 10/21/18 10/21/18 History thiamine HCl (vitamin B1) [Vitamin 250 mg PO QAM 10/21/18 10/21/18 History B-1] Past Med/Surg History Medical History Diabetes (Chronic) Heart disease (Chronic) Hypertension (Chronic) Aortic stenosis (Chronic) Anxiety (Chronic) Stroke (Chronic) Family History Other Cancer Hypertension Social History Preferred Language: Thai Communication Ability: Impaired Sewer Contractor Required: No Beliefs That Will Affect Care: None Current Living Situation: Family Current Living Situation Comment: daughters and caregivers Other Information That Helps Us Care for You: No Feels Safe at Home: Yes Smoking Status: Never smoker Hx Alcohol Use: No Hx Substance Use: Yes substance use type: marijuana Review of Systems Review of Systems: Unobtainable due to cognitive status Physical Exam Constitutional: WD/WN, vitals as above cooperative; no acute distress Extremely restless, continuously trying to sit up in bed and doing repetitive leg lifts (per family, this is normal) Eyes: PERRL, conjunctivae normal, anicteric sclerae ENMT: external ear and nose normal, oropharynx normal Respiratory: normal respiratory effort, lungs clear to auscultation Cardiovascular: RRR, no murmur, no edema Gastrointestinal (Abdomen): Inspection/Auscultation: abdomen normal to inspection; abdomen not distended Percussion/Palpation: abdomen soft; abdomen nontender, no guarding and abdomen not rigid Jaime's sign negative Skin: no rashes, warm and dry Neurologic: Neuro exam grossly normal, equal strength in UE and LE Psychiatric: Orientation: alert Minimally verbal, but cooperative and will follow commands Results & Data Vital Signs (Past 12 Hours) Vital Signs Temp Pulse Resp BP Pulse Ox 10/21/18 19:00 73 21 144/75 H 95 10/21/18 18:43 73 16 97 10/21/18 18:00 75 21 97 10/21/18 17:42 74 17 96 10/21/18 16:47 36.8 C 85 18 119/75 98 Supervising Physician Co-Signing Physician Notes Patient seen and examined, chart reviewed, case discussed with Dr. Fenton and I agree with her assessment and plan as documented above. Briefly, patient is an 82yo C female with history of prior CVAs, poor functional baseline, presenting with 2 weeks of abdominal pain and diarrhea, poor appetite. On physical exam she is afebrile, HD stable, minimally interactive during encounter, nonverbal Abdominal exam soft, NT/ND, no masses, normoactive bowel sounds Labs and imags reviewed Assessment/Plan: -Check RUQUS -Follow cultures -?if Macrobid contributing to abdominal pain/diarrhea. Consider holding -Follow c. diff -Remainder of plan as above Resident Activity Tracking Resident Involvement: Resident Care Provided Care Provided: Adult Hospital Medicine (1) Dementia with behavioral disturbance Dementia type: vascular dementia Qualified Code(s): F01.51 - Vascular dementia with behavioral disturbance (2) Aortic stenosis Cardiac valve disease etiology: etiology unspecified Qualified Code(s): I35.0 - Nonrheumatic aortic (valve) stenosis (3) Stroke CVA mechanism: unspecified Qualified Code(s): I63.9 - Cerebral infarction, unspecified
[2018-10-21] MEDS ORDERED: DOCUSATE SODIUM 100 MG CAP PO PRN (23:01)
[2018-10-21] MEDS ORDERED: ACETAMINOPHEN 325 MG TAB PO PRN (23:01)
[2018-10-22] MEDS: TRAMADOL HCL 50 MG TABLET PO PRN (00:11)
[2018-10-22] MEDS ORDERED: clonazePAM 0.5 MG TAB PO STA (00:57)
[2018-10-22] MEDS: SODIUM CHLORIDE 0.9% 1000ML 1,000 ML IV SCH ×2 (02:50→13:56)
[2018-10-22 07:08] LABS: Calcium 9.3 mg/dl (8.5-10.1); Creatinine Clr Calc Pharmacy 49.8 ml/min; Est GFR (African American) 76.6; Est GFR (Non-African American) 66.1; Potassium 3.6 mmol/L (3.5-5.1)
[2018-10-22] MEDS: ACETAMINOPHEN 500 MG TAB PO SCH ×2 (10:16→20:44)
[2018-10-22] MEDS: CLOPIDOGREL BISULFATE 75 MG TAB PO SCH (10:17)
[2018-10-22] MEDS: THIAMINE HCL 50 MG TABLET PO SCH (10:17)
[2018-10-22] MEDS: METOPROLOL TARTRATE 25 MG TAB PO SCH (10:17)
[2018-10-22] MEDS: risperiDONE 0.5 MG TABLET PO SCH ×3 (10:19→18:22)
[2018-10-22] MEDS: ATORVASTATIN 10 MG TAB PO SCH (10:19)
[2018-10-22] MEDS: NITROFURANTOIN MONOHYDRATE 100 MG CAP PO SCH ×2 (10:19→20:43)
[2018-10-22] MEDS: RIVASTIGMINE TARTRATE 1.5 MG CAP PO SCH (10:19)
[2018-10-22] MEDS: HEPARIN SOD 5,000 UNIT/0.5 ML VIAL SQ SCH ×2 (10:41→21:24)
--- NOTE | 2018-10-22 14:26 | Ultrasound Report ---
US abdomen limited CLINICAL HISTORY: 82 years-old Female presenting with assess biliary tree, CBD dilation seen on CT. TECHNIQUE: Real-time grayscale and limited color Doppler ultrasound imaging of the abdomen limited to the right upper quadrant was performed. COMPARISON: CT from 10/21/2018. FINDINGS: Pancreas: Visualized portions of the pancreatic head and body normal. Liver: Normal echogenicity and echotexture. The liver measures 17.8 cm in maximal sagittal dimension. No sonographic evidence of hepatic mass. Main portal vein patent with normal directional flow. Biliary: No intrahepatic biliary ductal dilatation. Common bile duct measures up to 11 mm in diameter . Gallbladder: Gallstones and gallbladder sludge. Gallbladder wall top normal in thickness. No evidence of gallbladder distention or pericholecystic fluid or inflammatory change. Right kidney: Normal in appearance apart from a simple exophytic cyst. Evidence of hydronephrosis. Ascites: None. Other: None. IMPRESSION: 1. Cholelithiasis and gallbladder sludge. No convincing evidence of cholecystitis. 2. Extra hepatic biliary ductal dilatation. Choledocholithiasis not excluded. Electronically signed by: Herbert Farias M.D. 10/22/2018 2:25 PM
[2018-10-22] MEDS: D5W AND 1/2NSS + 20MEQ KCL 20 MEQ/1,000 ML BAG IV SCH (16:37)
[2018-10-22] MEDS: AMPICILLIN/SULBACTAM SOD 3,000 MG in 0.9 % SODIUM CHLORIDE 100 ML IV SCH ×2 (16:52→21:23)
--- NOTE | 2018-10-22 18:52 | Hospitalist Progress Note ---
Date of Service October 22, 2018 Assessment & Plan (1) Abdominal pain: Present for [address] abd/pelvis with gallstones and chronic extrahepatic biliary ductal dilatation. RUQ u/s then obtained - also w/ gallstones/sludge and CBD of 11mm. LFTs wnl. Could pain be biliary tract in origin given the above results? Will obtain MRCP and depending on those findings may need GI consultation. In the event she could have cholecystitis or infection of biliary tree will add unasyn q6h. Present on Admission?: Yes (2) Gallstones: Seen on CT and u/s. See discussion above in "abd pain." MRCP ordered and is pending. Repeat LFTs am. Present on Admission?: Yes (3) Diarrhea: Per family present for 1 week but has had NO stool since admission. C diff and stool cx ordered; send studies if she has ongoing diarrhea. CT abd/pelvis without bowel pathology at time of admission. Present on Admission?: Yes (4) Dehydration: Cont IVF. Change to hypotonic given the hypernatremia. Present on Admission?: Yes (5) Hypernatremia: Hypotonic fluids. BMP am. Present on Admission?: Yes (6) Dementia with behavioral disturbance: Agitation/delirium - perhaps metabolic from infection, electrolyte disturbances, etc. Cont usual dose of risperdal TID. Could always increase the risperdal if necessary. Present on Admission?: Yes (7) Altered mental status: Metabolic from infectious process? other? work-up in progress for biliary tract disease. supportive care. Present on Admission?: Yes (8) Stroke: Numerous prior strokes and then had acute/subacute strokes (right temporal region, left cerebellum) on MRI in early September 2018. Remains on plavix for secondary prevention. Dementia is likely vascular in origin. (9) Aortic stenosis: h/o bioprosthetic AV. echo 09/2018 with intact valve function. (10) Hypertension: Remains on metoprolol. Acute spikes likely due to agitation. Follow for now. (11) Diabetes: a1c 5.9% in 09/2018. pre-DM. serum glucose levels very acceptable. (12) Recurrent UTI: on macrobid prophylaxis. u/a at admission not suspicious for infection. (13) Chronic kidney disease, stage 3a: baseline Cr 0.8 to 0.9 (14) DVT prophylaxis: heparin 5000 BID once MRCP results are back will update family Subjective during the visit patient sleeping very soundly. I could not wake the patient. staff report that prior to my visit she had eaten 1/2 of her lunch without GI intolerance/difficulty. she then went to sleep after lunch. staff report NO diarrhea since admission. no vomiting. she has been agitated however. Review of Systems Review of Systems: Unobtainable due to cognitive status Physical Exam Constitutional: average body habitus; no acute distress sleeping ENMT: Mouth: + dry oral mucous membranes Respiratory: normal respiratory effort, lungs clear to auscultation Cardiovascular: Rate/Rhythm: regular rate and regular rhythm Heart Sounds: normal S1, normal S2 and + murmur (2/6 RUSB (systolic)) Vessels: posterior tibial pulses present and dorsalis pedis pulses present; no JVD Gastrointestinal (Abdomen): normal bowel sounds, soft, nontender, no hepatosplenomegaly Psychiatric: Orientation: + not alert (sleeping entire visit) Results & Data Vital Signs (Past 12 Hours) T 36.7, RR 23, HR 88, BP 150/75, O2 sats 94% in RA Laboratory Results BMP with Na 146 blood cx's negative since admission u/a unremarkable (1) Abdominal pain Abdominal location: generalized Qualified Code(s): R10.84 - Generalized abdominal pain (2) Diarrhea Diarrhea type: unspecified type Qualified Code(s): R19.7 - Diarrhea, unspecified (3) Dementia with behavioral disturbance Dementia type: vascular dementia Qualified Code(s): F01.51 - Vascular dementia with behavioral disturbance (4) Altered mental status Altered mental status type: unspecified Qualified Code(s): R41.82 - Altered mental status, unspecified (5) Stroke CVA mechanism: unspecified Qualified Code(s): I63.9 - Cerebral infarction, unspecified (6) Aortic stenosis Cardiac valve disease etiology: etiology unspecified Qualified Code(s): I35.0 - Nonrheumatic aortic (valve) stenosis (7) Hypertension Hypertension type: essential hypertension Qualified Code(s): I10 - Essential (primary) hypertension (8) Diabetes Diabetes mellitus type: type 2 Diabetes mellitus oysterman insulin use: without alf use Diabetes mellitus complication status: without complication Qualified Code(s): E11.9 - Type 2 diabetes mellitus without complications
[2018-10-22] MEDS ORDERED: clonazePAM 0.5 MG TAB PO ONE (19:45)
[2018-10-22] MEDS: MIRABEGRON ER 25 MG TAB PO SCH (20:41)
[2018-10-22] MEDS: CELECOXIB 100 MG CAP PO SCH (20:42)
[2018-10-22] MEDS: CHOLECALCIFEROL 1,000 UNITS TAB PO SCH (20:44)
[2018-10-23] MEDS: AMPICILLIN/SULBACTAM SOD 3,000 MG in 0.9 % SODIUM CHLORIDE 100 ML IV SCH ×4 (03:02→21:33)
[2018-10-23] MEDS: D5W AND 1/2NSS + 20MEQ KCL 20 MEQ/1,000 ML BAG IV SCH ×2 (03:02→18:18)
[2018-10-23 07:27] LABS: Albumin Level 3.1 gm/dl (3.4-5.0); BUN Creatinine Ratio 24.3 (10-20); Calcium 8.4 mg/dl (8.5-10.1); Est GFR (African American) 73.4; Est GFR (Non-African American) 63.4; Potassium 4.1 mmol/L (3.5-5.1)
[2018-10-23 07:29] LABS: Bilirubin,Total 0.4 mg/dl (0.2-1); Total Protein 6.1 gm/dl (6.4-8.2)
[2018-10-23 07:43] LABS: Hematocrit (blood only) 33.4 % (37-47); Hemoglobin 10.8 g/dL (12.0-16.0); Mean Corpuscular Hgb Conc 32.3 g/dL (32-36); Mean Corpuscular Volume 88.4 fL (80-100); Mean Platelet Volume 10.7 fL (7.4-10.4); Platelet Count 142 K/uL (130-400); RDW Standard Deviation 41.5 fL (36.4-46.3); Red Blood Count 3.78 M/uL (4.2-5.4)
[2018-10-23] MEDS: CLOPIDOGREL BISULFATE 75 MG TAB PO SCH (10:50)
[2018-10-23] MEDS: ATORVASTATIN 10 MG TAB PO SCH (10:50)
[2018-10-23] MEDS: HEPARIN SOD 5,000 UNIT/0.5 ML VIAL SQ SCH ×2 (10:55→21:01)
[2018-10-23] MEDS: METOPROLOL TARTRATE 25 MG TAB PO SCH (10:57)
[2018-10-23] MEDS: NITROFURANTOIN MONOHYDRATE 100 MG CAP PO SCH ×2 (10:57→19:54)
[2018-10-23] MEDS: THIAMINE HCL 50 MG TABLET PO SCH (10:58)
[2018-10-23] MEDS: RIVASTIGMINE TARTRATE 1.5 MG CAP PO SCH (10:58)
[2018-10-23] MEDS: risperiDONE 0.5 MG TABLET PO SCH ×3 (10:59→16:57)
[2018-10-23] MEDS: ACETAMINOPHEN 500 MG TAB PO SCH ×2 (11:01→19:53)
--- NOTE | 2018-10-23 11:19 | Magnetic Resonance Report ---
MR MRCP HISTORY: 82 years-old Female CBD dilation on u/s; ?choledocholithiasis? Follow-up study in a patient with cholelithiasis and common bile duct dilation. COMPARISON: CT abdomen and pelvis 10/21/2018, abdominal ultrasound 10/22/2018 TECHNIQUE: MRCP was obtained without the use of IV contrast. FINDINGS: Study is limited secondary to patient and movement and positioning. Heart appears to be enlarged. The imaged lower chest otherwise appears unremarkable. T2 hyperintense lesions of the kidneys measuring up to 8.1 cm on the left are suggestive of renal cysts. Mild nonspecific bilateral perinephric strand ing. Parenchymal atrophic changes of the pancreas. The spleen, liver and adrenal glands appear unrema rkable. Cholelithiasis. Dilation of the common bile duct, N millimeters. No gallbladder wall thickeni ng or pericholecystic fluid identified. There is suggestion of a single focal filling defects within the mid common bile duct measuring 7 mm on image 30 series 9. This finding is not seen on any of the other sequences. Mild intrahepatic biliary ductal dilation is also noted. The common bile duct appear s normal in caliber. Noted to the pancreatic divisum. IMPRESSION: 1. Motion degraded exam. 2. Cholelithiasis with mild intrahepatic and extrahepatic biliary ductal dilation. Additionally, ther e is a single 7 mm filling defect seen about the mid common bile duct which is favored be artifactual with choledocholithiasis considered less likely. Correlate with patient's symptoms and laboratory an alysis. The above report was generated using voice recognition software. It may contain grammatical, syntax o r spelling errors. Electronically signed by: Suraj Day M.D. 10/23/2018 11:17 AM
--- NOTE | 2018-10-23 18:14 | Gastrointestinal Consultation ---
Date of Consultation October 23, 2018 Assessment & Plan (1) Abdominal pain: Cannot obtain a reliable history from this patient given cognitive status. If patien is able to tolerate diet without vomiting then that would seem to indicate no current abd pain ? stone in duct on MRCP--radiolog thought probable artifact and LFTs normal--It is true that a stone can be present and not raise LFTS but intermittently obstruct and cause symptoms. However, ERCP is a significant procedure with general anesthesia and risks in this patient with other comorbities so would want to make sure there is a strong indication. At this point would see if she continues to tolerate diet or not. Follow LFTs and lipase constipation--recent diarrhea but may be body trying to eliminate after several days no BM. Check Cdiff if has liquid stool. Given hx of recent fecal impaction, I think patient has baseline severe constipation and needs to be on bowel regimen for example miralax 34 gm bid to keep bowels moving. History of Present Illness Reason for Consultation: abd pain, ? CBD stone Requesting Physician: Dr Thornton Attending Physician: Ryland Thornton History of Present Illness CC unobtainable secondary to dementia, spoke with son in room and nurse HPI Pt with dementia. Reviewed recent [facility] EMR looking for GI pertinent data. Pt admitted 09/13 to 09/18/18 with mental status changes secondary to stroke and fecal impaction. Per son for two weeks not swallowing versus not wanting to eat or drink and diarrhea and confusion and abd pain. GI workup includes CT a/p gallstones, dilated bile daryl, u/s CBC 11 mm, gallstones. MRCP CBD filling defect thought artifactual more than stone, CBD normal caliber and mild intrahepatic duct dilatation. LFTS on admit and today normal. Per nursing no stools since admit and had normal formed stools today. Per nursing tolerated solid food yesterday and full liquid today. Per son will go several days without a BM then have large diarrhea stool. Allergies Allergy/AdvReac Type Severity Reaction Status Date / Time enalapril Allergy Intermediate Cough Verified 10/21/18 22:04 escitalopram AdvReac Intermediate Hallucinati Verified 10/21/18 22:04 ons Home Medications Home Medications Medication Instructions Recorded Confirmed Type atorvastatin 10 mg PO QAM 04/04/18 10/21/18 History celecoxib 100 mg PO PM 04/04/18 10/21/18 History cholecalciferol (vitamin D3) 2,000 units PO HS 04/04/18 10/21/18 History [Vitamin D3] docusate sodium 100 mg PO Q2D PRN 04/04/18 10/21/18 History metoprolol tartrate 25 mg PO QAM 04/04/18 10/21/18 History mirabegron 50 mg PO HS 04/04/18 10/21/18 History risperidone 0.25 mg PO TIDM 04/04/18 10/21/18 History rivastigmine tartrate 1.5 mg PO QAM 04/04/18 10/21/18 History acetaminophen [Tylenol Extra 500 mg PO BID 08/26/18 10/21/18 History Strength] clopidogrel 75 mg PO QAM #30 tab 09/18/18 10/21/18 Rx clonazepam 0.25 mg PO QPM 10/21/18 10/21/18 History nitrofurantoin monohyd/m-cryst 100 mg PO AMPM 10/21/18 10/21/18 History thiamine HCl (vitamin B1) [Vitamin 250 mg PO QAM 10/21/18 10/21/18 History B-1] Patient History Medical History Diabetes (Chronic) Heart disease (Chronic) Hypertension (Chronic) Aortic stenosis (Chronic) Anxiety (Chronic) Stroke (Chronic) Family History Other Cancer Hypertension Social History Preferred Language: Slovenian Communication Ability: Effective Violin Tutor Required: No Beliefs That Will Affect Care: None Current Living Situation: Family Current Living Situation Comment: daughters and caregivers Other Information That Helps Us Care for You: No Feels Safe at Home: Yes Smoking Status: Never smoker Hx Alcohol Use: No Hx Substance Use: Yes substance use type: marijuana Review of Systems Review of Systems: Unobtainable due to cognitive status Physical Exam Constitutional: WD/WN, vitals as above Eyes: PERRL, conjunctivae normal, anicteric sclerae Neck: normal visual inspection and trachea midline Respiratory: normal respiratory effort, lungs clear to auscultation Cardiovascular: RRR, no murmur, no edema Gastrointestinal (Abdomen): positive bowel sounds, no guarding nor rebound Psychiatric: Orientation: alert agitated Results & Data Vital Signs (Past 12 Hours) Vital Signs Temp Pulse Resp BP Pulse Ox 10/23/18 15:52 36.9 C 75 20 194/78 H 98 10/23/18 07:42 36.8 C 62 18 166/69 H 98
[2018-10-23] MEDS: clonazePAM 0.5 MG TAB PO SCH (19:50)
[2018-10-23] MEDS: CELECOXIB 100 MG CAP PO SCH (19:52)
[2018-10-23] MEDS: MIRABEGRON ER 25 MG TAB PO SCH (19:53)
[2018-10-23] MEDS: CHOLECALCIFEROL 1,000 UNITS TAB PO SCH (19:55)
--- NOTE | 2018-10-23 21:16 | Hospitalist Progress Note ---
Date of Service October 23, 2018 Assessment & Plan (1) Abdominal pain: Present for [address] abd/pelvis with gallstones and chronic extrahepatic biliary ductal dilatation. RUQ u/s then obtained - also w/ gallstones/sludge and CBD of 11mm. LFTs wnl. MRCP obtained - gallstones seen, no evidence of cholecystitis, but possible 7mm filling defect in CBD. Unasyn started yesterday to cover for any infectious process of biliary tract. Consulted Dr Joseph from [facility] - following his visit we discussed her case in detail. Given normal LFTs, ability to eat in the last 1-2 days, etc -- plan to OBSERVE patient rather than pursuing ERCP at this time. Repeat LFTs, lipase in am. Allow diet. Follow clinical course. (2) Gallstones: Seen on CT and u/s. MRCP with stones but no findings to suggest acute cholecystitis. LFTs normal. ?choledocholithiasis on MRCP? [facility] Dr Joseph consulted. To hold off on ERCP for now. Serial exams. Repeat LFTs and lipase in am. Empiric unasyn for 2-3 days but stop the antibiotics if no concrete evidence of biliary tract disease/infection. (3) Diarrhea: No diarrhea since admission despite report of diarrhea at home. If diarrhea returns then check for c. diff, stool cx, etc. Check KUB x-ray in am - r/o impaction. If impacted recent "diarrhea" could be overflow stooling. (4) Dehydration: Cont hypotonic fluids given the hypernatremia. BMP am. (5) Hypernatremia: Hypotonic fluids. BMP am. (6) Altered mental status: Metabolic from infectious process? other? work-up in progress for biliary tract disease. supportive care. (7) Dementia with behavioral disturbance: Agitation/delirium - perhaps metabolic from infection, electrolyte disturbances, etc. Cont usual dose of risperdal TID. Further her delirium/agitation could simply be hospital psychosis in setting of advanced vascular dementia. (8) Hypertension: Remains on metoprolol. Acute spikes likely due to agitation. Follow for now. Would not be overly aggressive with HTN treatment. (9) Aortic stenosis: h/o bioprosthetic AV. echo 09/2018 with intact valve function. (10) Anxiety: takes klonipin at HS chronically. also on risperdal TID. reported h/o medical THC -- for anxiety?? prescribed by local psychiatrist?? (11) Stroke: Numerous prior strokes and then had acute/subacute strokes (right temporal region, left cerebellum) on MRI in early September 2018. Remains on plavix for secondary prevention. Dementia is likely vascular in origin. (12) Hyperlipidemia: statin therapy (13) CHF (congestive heart failure): history of. looks volume contracted on exam today. cont gentle fluids. (14) Diabetes: a1c 5.9% in 09/2018. pre-DM. serum glucose levels cont to be acceptable even with dextrose-containing fluids. (15) Recurrent UTI: on macrobid prophylaxis. u/a at admission not suspicious for infection. (16) Chronic kidney disease, stage 3a: baseline Cr 0.8 to 0.9 BMP stable today (17) DVT prophylaxis: heparin 5000 BID care plan d/w Dr Joseph from [facility] updated daughter at bedside today updated son, Dixon, who acts as POA for patient spoke to him at length by phone this evening Dixon asks that he has as many updates as possible on day to day basis PT, OT nereida requested Subjective patient awake during my visit today. daughter at bedside. patient VERY agitated - moving around in bed considerably, moaning at times, not answering questions very well. inconsistent responses or even no responses. per staff - no diarrhea, no GI intolerance to eating meals yesterday, no obvious abdominal pain. daughter w/ numerous questions. daughter did confirm that her mother had about 1 week of diarrhea but it stopped before hospital admission. Review of Systems Review of Systems: Unobtainable due to cognitive status Physical Exam Constitutional: average body habitus; no acute distress (but agitated during the visit) unable to voice her complaints to me ENMT: external ear and nose normal, oropharynx normal Respiratory: normal respiratory effort, lungs clear to auscultation Cardiovascular: Rate/Rhythm: regular rate and regular rhythm Heart Sounds: normal S1, normal S2 and + murmur (2/6 RUSB (systolic)) Vessels: posterior tibial pulses present and dorsalis pedis pulses present; no JVD Gastrointestinal (Abdomen): normal bowel sounds, soft, nontender, no hepatosplenomegaly Psychiatric: Orientation: alert; + not oriented x 3 Eye Contact: + poor eye contact Results & Data Vital Signs (Past 12 Hours) Vital Signs Temp Pulse Resp BP Pulse Ox 10/23/18 15:52 36.9 C 75 20 194/78 H 98 Laboratory Results Laboratory Results - last 24 hr 10/23/18 10/23/18 10/23/18 06:39 06:39 07:16 WBC Cancelled 4.50 L RBC Cancelled 3.78 L Hgb Cancelled 10.8 L Hct Cancelled 33.4 L MCV Cancelled 88.4 MCH Cancelled 28.6 MCHC Cancelled 32.3 RDW Std Deviation Cancelled 41.5 RDW Coeff of [place] Cancelled 13.0 Plt Count Cancelled 142 MPV Cancelled 10.7 H Absolute Nucleated RBC Cancelled Nucleated RBC % (auto) Cancelled Platelet Estimate Cancelled Sodium 146 H Potassium 4.1 Chloride 115 H Carbon Dioxide 25 Anion Gap 6.0 BUN 21 H Creatinine 0.86 Est Cr Clr Drug Dosing 48.0 Est GFR ( Amer) 73.4 Est GFR (Non-Af Amer) 63.4 BUN/Creatinine Ratio 24.3 H Glucose 94 Calcium 8.4 L Total Bilirubin 0.4 AST 20 ALT 14 Alkaline Phosphatase 88 Total Protein 6.1 L Albumin 3.1 L Globulin 3.0 Albumin/Globulin Ratio 1.0 (1) Dementia with behavioral disturbance Dementia type: vascular dementia Qualified Code(s): F01.51 - Vascular dementia with behavioral disturbance (2) CHF (congestive heart failure) Heart failure type: unspecified Heart failure chronicity: unspecified Qualified Code(s): I50.9 - Heart failure, unspecified (3) Aortic stenosis Cardiac valve disease etiology: etiology unspecified Qualified Code(s): I35.0 - Nonrheumatic aortic (valve) stenosis (4) Diarrhea Diarrhea type: unspecified type Qualified Code(s): R19.7 - Diarrhea, unspecified (5) Hyperlipidemia Hyperlipidemia type: mixed hyperlipidemia Qualified Code(s): E78.2 - Mixed hyperlipidemia (6) Abdominal pain Abdominal location: generalized Qualified Code(s): R10.84 - Generalized abdominal pain (7) Hypertension Hypertension type: essential hypertension Qualified Code(s): I10 - Essential (primary) hypertension (8) Stroke CVA mechanism: unspecified Qualified Code(s): I63.9 - Cerebral infarction, unspecified (9) Altered mental status Altered mental status type: unspecified Qualified Code(s): R41.82 - Altered mental status, unspecified (10) Diabetes Diabetes mellitus type: type 2 Diabetes mellitus fpc insulin use: without fpc use Diabetes mellitus complication status: without complication Qualified Code(s): E11.9 - Type 2 diabetes mellitus without complications
[2018-10-23] MEDS: TRAMADOL HCL 50 MG TABLET PO PRN (21:31)
[2018-10-24] MEDS ORDERED: risperiDONE 0.5 MG TABLET PO STA (03:08)
[2018-10-24] MEDS: AMPICILLIN/SULBACTAM SOD 3,000 MG in 0.9 % SODIUM CHLORIDE 100 ML IV SCH ×2 (04:27→10:23)
[2018-10-24] MEDS: D5W AND 1/2NSS + 20MEQ KCL 20 MEQ/1,000 ML BAG IV SCH (07:51)
[2018-10-24] MEDS: ATORVASTATIN 10 MG TAB PO SCH (07:52)
[2018-10-24] MEDS: risperiDONE 0.5 MG TABLET PO SCH ×3 (07:52→18:47)
[2018-10-24] MEDS: RIVASTIGMINE TARTRATE 1.5 MG CAP PO SCH (07:53)
[2018-10-24] MEDS: NITROFURANTOIN MONOHYDRATE 100 MG CAP PO SCH ×2 (07:53→20:07)
[2018-10-24] MEDS: THIAMINE HCL 50 MG TABLET PO SCH (07:54)
[2018-10-24] MEDS: ACETAMINOPHEN 500 MG TAB PO SCH ×2 (07:56→20:06)
[2018-10-24] MEDS: HEPARIN SOD 5,000 UNIT/0.5 ML VIAL SQ SCH ×2 (07:58→20:07)
[2018-10-24 08:19] LABS: Basophils # (auto) 0.01 K/uL (0-0.2); Basophils % (auto) 0.2 %; Eosinophils # (auto) 0.09 K/uL (0-0.5); Hematocrit (blood only) 31.4 % (37-47); Hemoglobin 10.5 g/dL (12.0-16.0); Immature Granulocytes # (auto) 0.01 K/uL (0.00-0.02); Immature Granulocytes % (auto) 0.2 %; Lymphocytes # (auto) 1.32 K/uL (1.2-3.4); Lymphocytes % (auto) 29.7 %; Mean Corpuscular Hgb Conc 33.4 g/dL (32-36); Mean Corpuscular Volume 86.7 fL (80-100); Mean Platelet Volume 10.5 fL (7.4-10.4); Monocytes # (auto) 0.45 K/uL (0.11-0.59); Monocytes % (auto) 10.1 %; Neutrophils # (auto) 2.57 K/uL (1.4-6.5); Neutrophils % (auto) 57.8 %; Platelet Count 139 K/uL (130-400); RDW Coefficient of Variation 12.8 % (11.5-14.5); Red Blood Count 3.62 M/uL (4.2-5.4); White Blood Count 4.45 K/uL (4.8-10.8)
[2018-10-24] MEDS: METOPROLOL TARTRATE 25 MG TAB PO SCH (08:21)
[2018-10-24] MEDS: CLOPIDOGREL BISULFATE 75 MG TAB PO SCH (08:21)
[2018-10-24 08:44] LABS: Albumin Globulin Ratio 1.1 (0.9-2); Albumin Level 3.2 gm/dl (3.4-5.0); BUN Creatinine Ratio 16.5 (10-20); Bilirubin,Total 0.4 mg/dl (0.2-1); Calcium 8.8 mg/dl (8.5-10.1); Est GFR (African American) 94.2; Est GFR (Non-African American) 81.3; Potassium 3.9 mmol/L (3.5-5.1); Total Protein 6.2 gm/dl (6.4-8.2)
[2018-10-24 09:17] LABS: Folate (Folic Acid) 13.03 ng/ml (>5.38)
--- NOTE | 2018-10-24 09:20 | XRay Report ---
XR KUB/Abdomen 1 view CLINICAL HISTORY: 82 years-old Female presenting with constipation; assess fecal impaction. TECHNIQUE: Single supine view of the abdomen was obtained. COMPARISON: 04/20/2016. FINDINGS: Mild stool burden noted throughout the colon. Nonobstructive bowel gas pattern. No gross pneumoperito neum. Allowing for bowel gas and stool, no calcifications to suggest nephrolithiasis. Atherosclerotic calci fications noted. Degenerative changes of the spine. Median sternotomy wires and mediastinal surgical clips. Prosthetic valve noted. IMPRESSION: 1. Mild stool burden throughout the colon. No bowel obstruction. Electronically signed by: Herbert Farias M.D. 10/24/2018 9:19 AM
--- NOTE | 2018-10-24 09:31 | Hospitalist Progress Note ---
Date of Service October 24, 2018 Assessment & Plan (1) Abdominal pain: Present for [address] abd/pelvis with gallstones and chronic extrahepatic biliary ductal dilatation. RUQ u/s then obtained - also w/ gallstones/sludge and CBD of 11mm. LFTs wnl. Significant stool load seen on imaging this may be the etiology of her pain MRCP obtained - gallstones seen, no evidence of cholecystitis, but possible 7mm filling defect in CBD. Unasyn started yesterday to cover for any infectious process of biliary tract. Consulted Dr Joseph from [facility] - following his visit we discussed her case in detail. Given normal LFTs, ability to eat in the last 1-2 days, etc -- plan to OBSERVE patient rather than pursuing ERCP at this time. Will try manual disimpaction and possible enema on 10/25 Allow diet. (2) Gallstones: Seen on CT and u/s. MRCP with stones but no findings to suggest acute cholecystitis. LFTs normal. ?choledocholithiasis on MRCP? [facility] Dr Joseph consulted no plans on ERCP for now. Serial exams. Repeat LFTs and lipase in am. Empiric unasyn for 2-3 days but stop the antibiotics if no concrete evidence of biliary tract disease/infection. (3) Diarrhea: No diarrhea since admission despite report of diarrhea at home. X-ray suggest increased stool load we will try MiraLAX and then consider manual disimpaction If diarrhea returns then check for c. diff, stool cx, etc. (4) Dehydration: (5) Hypernatremia: (6) Altered mental status: Metabolic encephalopathy from infectious process? other? work-up in progress for biliary tract disease. supportive care. (7) Dementia with behavioral disturbance: Agitation/delirium - perhaps metabolic from infection, electrolyte disturbances, etc. Cont usual dose of risperdal TID. Further her delirium/agitation could simply be hospital psychosis in setting of advanced vascular dementia. (8) Hypertension: Remains on metoprolol. Acute spikes likely due to agitation. Follow for now. Would not be overly aggressive with HTN treatment. (9) Aortic stenosis: h/o bioprosthetic AV. echo 09/2018 with intact valve function. (10) Anxiety: takes klonipin at HS chronically. also on risperdal TID. reported h/o medical THC -- for anxiety?? prescribed by local psychiatrist?? (11) Stroke: Numerous prior strokes and then had acute/subacute strokes (right temporal region, left cerebellum) on MRI in early September 2018. Remains on plavix for secondary prevention. Dementia is likely vascular in origin. (12) Hyperlipidemia: statin therapy (13) CHF (congestive heart failure): history of. HFpEF looks volume contracted on exam today. cont gentle fluids. (14) Diabetes: a1c 5.9% in 09/2018. pre-DM. serum glucose levels cont to be acceptable even with dextrose-containing fluids. (15) Recurrent UTI: on macrobid prophylaxis. u/a at admission not suspicious for infection. (16) Chronic kidney disease, stage 3a: baseline Cr 0.8 to 0.9 BMP stable today (17) DVT prophylaxis: heparin 5000 BID care plan d/w Dr Joseph from [facility] updated daughter at bedside today updated son, Dixon, who acts as POA for patient spoke to him at length by phone this evening Dixon asks that he has as many updates as possible on day to day basis PT, OT nereida requested Subjective Patient is a very little conversant she is lying in a ball in the bed with her legs in the air she cannot purposely answer questions she can follow some commands Review of Systems Review of Systems: Unobtainable due to cognitive status Physical Exam Physical Exam: The patient appeared frail thin and weak and Vital signs as documented. Head exam is unremarkable. normocephalic, atraumatic Neck is without jugular venous distension, thyromegaly, or lymphademopathy Lungs are diminished bilaterally Cardiac exam reveals Rhythm is regular. Systolic ejection murmur Abdominal exam reveals normal bowel sounds, seems uncomfortable to exam Extremities are nonedematous and both pedal pulses are present Neurologic exam is a week spontaneously moves all extremities does follow some commands, Skin is warm / Dry Results & Data Vital Signs (Past 12 Hours) Vital Signs Temp Pulse Resp BP Pulse Ox 10/24/18 06:26 36.9 C 85 20 156/98 H 97 10/23/18 23:25 36.5 C 73 20 169/57 H 97 (1) Dementia with behavioral disturbance Dementia type: vascular dementia Qualified Code(s): F01.51 - Vascular dementia with behavioral disturbance (2) Diabetes Diabetes mellitus complication status: without complication Diabetes mellitus senior care insulin use: without petroleum terminal plant operator use Diabetes mellitus type: type 2 Qualified Code(s): E11.9 - Type 2 diabetes mellitus without complications (3) CHF (congestive heart failure) Heart failure chronicity: unspecified Heart failure type: unspecified Qualified Code(s): I50.9 - Heart failure, unspecified (4) Aortic stenosis Cardiac valve disease etiology: etiology unspecified Qualified Code(s): I35.0 - Nonrheumatic aortic (valve) stenosis (5) Diarrhea Diarrhea type: unspecified type Qualified Code(s): R19.7 - Diarrhea, unspecified (6) Hyperlipidemia Hyperlipidemia type: mixed hyperlipidemia Qualified Code(s): E78.2 - Mixed hyperlipidemia (7) Altered mental status Altered mental status type: unspecified Qualified Code(s): R41.82 - Altered mental status, unspecified (8) Abdominal pain Abdominal location: generalized Qualified Code(s): R10.84 - Generalized abdominal pain (9) Hypertension Hypertension type: essential hypertension Qualified Code(s): I10 - Essential (primary) hypertension (10) Stroke CVA mechanism: unspecified Qualified Code(s): I63.9 - Cerebral infarction, unspecified
--- NOTE | 2018-10-24 16:40 | Gastroenterology Progress Note ---
Date of Service October 24, 2018 Assessment & Plan (1) Abdominal pain: Cannot obtain a reliable history from this patient given cognitive status. If patien is able to tolerate diet without vomiting then that would seem to indicate no current abd pain ? stone in duct on MRCP--radiolog thought probable artifact and LFTs normal--It is true that a stone can be present and not raise LFTS but intermittently obstruct and cause symptoms. However, ERCP is a significant procedure with general anesthesia and risks in this patient with other comorbities so would want to make sure there is a strong indication. At this point would see if she continues to tolerate diet or not. Follow LFTs and lipase constipation--recent diarrhea but may be body trying to eliminate after several days no BM. Check Cdiff if has liquid stool. Given hx of recent fecal impaction, I think patient has baseline severe constipation and needs to be on bowel regimen for example miralax 34 gm bid to keep bowels moving. Continue supportive care. No plans for ERCP at present. Subjective cc f/u ? CBD stone, diarrhea HPI History from chart and nursing staff. History unobtainable from patient. Pt ate about 25% of breakfast and 50% of lunch. Had moderate soft stool this am not black nor bloody. KUB this am mild stool burden Review of Systems Review of Systems: Unobtainable due to cognitive status Physical Exam Constitutional: WD/WN, vitals as above Respiratory: normal respiratory effort, lungs clear to auscultation Cardiovascular: RRR, no murmur, no edema Gastrointestinal (Abdomen): abdomen pos bs, soft, no guarding nor rebound Psychiatric: Orientation: alert Results & Data Vital Signs (Past 12 Hours) Vital Signs Temp Pulse Resp BP Pulse Ox 10/24/18 15:09 37.0 C 20 155/73 H 98 10/24/18 06:26 36.9 C 85 20 156/98 H 97 (1) Abdominal pain Abdominal location: generalized Qualified Code(s): R10.84 - Generalized abdominal pain
[2018-10-24] MEDS ORDERED: POLYETHYLENE (MIRALAX) 17 GM PACK PO ONE (18:50)
[2018-10-24] MEDS: NORMOSOL-R 1,000 ML IV SCH (20:05)
[2018-10-24] MEDS: CELECOXIB 100 MG CAP PO SCH (20:05)
[2018-10-24] MEDS: clonazePAM 0.5 MG TAB PO SCH (20:05)
[2018-10-24] MEDS: CHOLECALCIFEROL 1,000 UNITS TAB PO SCH (20:06)
[2018-10-24] MEDS: MIRABEGRON ER 25 MG TAB PO SCH (20:07)
[2018-10-25 07:46] LABS: Basophils # (auto) 0.01 K/uL (0-0.2); Basophils % (auto) 0.3 %; Eosinophils # (auto) 0.14 K/uL (0-0.5); Eosinophils % (auto) 3.7 %; Hematocrit (blood only) 30.6 % (37-47); Lymphocytes # (auto) 1.67 K/uL (1.2-3.4); Lymphocytes % (auto) 44.2 %; Mean Corpuscular Hgb Conc 32.7 g/dL (32-36); Mean Corpuscular Volume 87.9 fL (80-100); Mean Platelet Volume 10.8 fL (7.4-10.4); Monocytes # (auto) 0.38 K/uL (0.11-0.59); Monocytes % (auto) 10.1 %; Neutrophils # (auto) 1.58 K/uL (1.4-6.5); Neutrophils % (auto) 41.7 %; Platelet Count 123 K/uL (130-400); RDW Coefficient of Variation 13.2 % (11.5-14.5); RDW Standard Deviation 42.5 fL (36.4-46.3); Red Blood Count 3.48 M/uL (4.2-5.4); White Blood Count 3.78 K/uL (4.8-10.8)
[2018-10-25] MEDS: NORMOSOL-R 1,000 ML IV SCH (08:17)
[2018-10-25] MEDS: HEPARIN SOD 5,000 UNIT/0.5 ML VIAL SQ SCH ×2 (08:18→20:45)
[2018-10-25 08:30] LABS: Albumin Level 2.8 gm/dl (3.4-5.0); BUN Creatinine Ratio 13.6 (10-20); Calcium 8.8 mg/dl (8.5-10.1); Creatinine Clr Calc Pharmacy 53.6 ml/min; Est GFR (African American) 83.9; Est GFR (Non-African American) 72.4; Potassium 3.6 mmol/L (3.5-5.1)
[2018-10-25 08:33] LABS: Bilirubin,Total 0.3 mg/dl (0.2-1); Globulin 2.7 gm/dl (2.5-4.0); Total Protein 5.5 gm/dl (6.4-8.2)
--- NOTE | 2018-10-25 09:17 | Hospitalist Progress Note ---
Date of Service October 25, 2018 Assessment & Plan (1) Abdominal pain: Present for 2 weeks per family. Resolved after bowel movements. CT abd/pelvis with gallstones and chronic extrahepatic biliary ductal dilatation. RUQ u/s then obtained - also w/ gallstones/sludge and CBD of 11mm. LFTs wnl. Significant stool load seen on imaging this may be the etiology of her pain MRCP obtained - gallstones seen, no evidence of cholecystitis, but possible 7mm filling defect in CBD. Unasyn started yesterday to cover for any infectious process of biliary tract. Consulted Dr Joseph from [facility] - following his visit we discussed her case in detail. Given normal LFTs, ability to eat in the last 1-2 days, etc -- plan to OBSERVE patient rather than pursuing ERCP at this time. Diarrhea present prior to admission is likely overflow diarrhea Allow diet. (2) Gallstones: Seen on CT and u/s. MRCP with stones but no findings to suggest acute cholecystitis. LFTs normal. [facility] Dr Joseph consulted no plans on ERCP as with normal LFTs he feels the risk outweighs the reward for possible intervention as the patient is not clinically behaving like she has choledocholithiasis or cholecystitis. Empiric unasyn was stopped (3) Diarrhea: No diarrhea since admission despite report of diarrhea at home. X-ray suggest increased stool load improved with the MiraLAX will use daily dosing (4) Dehydration: Resolved (5) Hypernatremia: Resolved. IV fluids (6) Altered mental status: Metabolic encephalopathy from infectious process no evidence of infectious process seen metabolic encephalopathy is therefore ruled out (7) Dementia with behavioral disturbance: Agitation/delirium -likely related to pain and discomfort Cont usual dose of risperdal TID. (8) Hypertension: Remains on metoprolol. Acute spikes likely due to agitation. Follow for now. Would not be overly aggressive with HTN treatment. (9) Aortic stenosis: h/o bioprosthetic AV. echo 09/2018 with intact valve function. (10) Anxiety: takes klonipin at HS chronically. also on risperdal TID. reported h/o medical THC -- for anxiety?? prescribed by local psychiatrist?? (11) Stroke: Numerous prior strokes and then had acute/subacute strokes (right temporal region, left cerebellum) on MRI in early September 2018. Remains on plavix for secondary prevention. Dementia is likely vascular in origin. (12) Hyperlipidemia: statin therapy (13) CHF (congestive heart failure): history of. HFpEF (14) Diabetes: a1c 5.9% in 09/2018. pre-DM. serum glucose levels cont to be acceptable even with dextrose-containing fluids. (15) Recurrent UTI: on macrobid prophylaxis. Which continues once Unasyn stopped u/a at admission not suspicious for infection. (16) Chronic kidney disease, stage 3a: baseline Cr 0.8 to 0.9 BMP stable today (17) DVT prophylaxis: heparin 5000 BID care plan d/w Dr Joseph from [facility] updated daughter at bedside today 10/25 updated son, Dixon, who acts as POA for patient spoke to him at length by phone this evening Dixon asks that he has as many updates as possible on day to day basis PT, OT nereida requested Subjective Patient looks dramatically improved today she did have 3 bowel movements overnight likely the etiology of her abdominal discomfort was her obstipation and not a consideration of cholecystitis. Her daughter is present at the bedside and she said she felt her reasonably good lunch in her opinion. We will stop intravenous fluids at this point time have her on daily MiraLAX therapy and have her evaluated for physical and occupational therapy to eventually return home with home health Review of Systems Review of Systems: ROS: Patient appears demented and declining No double vision blurry vision No problems with speech or swallowing No palpitations, chest pain or pressure No Wheezing or breathing issues No complaints of abdominal pain no diarrhea No burning urine urine frequency or changes in color No focal joint pain or muscle pain No skin rashes or oral lesions No unusual bruising or bleeding No focused back pain or numbness or loss of strength Physical Exam Physical Exam: The patient appeared her stated age she is lethargic and does not interact much Vital signs as documented. Head exam is unremarkable. normocephalic, atraumatic Neck is without jugular venous distension, thyromegaly, or lymphademopathy Lungs are clear to auscultation decreased at the bases Cardiac exam reveals Rhythm is regular. Systolic ejection murmurs heard Abdominal exam reveals normal bowel sounds, no masses, no organomegaly soft and nontender Extremities are nonedematous and both pedal pulses are present Neurologic exam is she responds to commands she is with minimal verbal interaction this is according to her daughter normal she is spontaneously move all extremities Psychologically seems withdrawn and depressed Skin is warm Dry Results & Data Vital Signs (Past 12 Hours) Vital Signs Temp Pulse Pulse Resp BP Pulse Ox 10/25/18 07:28 36.3 C L 47 L 18 174/69 H 97 10/24/18 23:12 36.6 C 75 20 154/62 H 97 (1) Dementia with behavioral disturbance Dementia type: vascular dementia Qualified Code(s): F01.51 - Vascular dementia with behavioral disturbance (2) Diabetes Diabetes mellitus complication status: without complication Diabetes mellitus jail insulin use: without intermediate project manager use Diabetes mellitus type: type 2 Qualified Code(s): E11.9 - Type 2 diabetes mellitus without complications (3) CHF (congestive heart failure) Heart failure chronicity: unspecified Heart failure type: unspecified Qualified Code(s): I50.9 - Heart failure, unspecified (4) Aortic stenosis Cardiac valve disease etiology: etiology unspecified Qualified Code(s): I35.0 - Nonrheumatic aortic (valve) stenosis (5) Diarrhea Diarrhea type: unspecified type Qualified Code(s): R19.7 - Diarrhea, unspecified (6) Hyperlipidemia Hyperlipidemia type: mixed hyperlipidemia Qualified Code(s): E78.2 - Mixed hyperlipidemia (7) Altered mental status Altered mental status type: unspecified Qualified Code(s): R41.82 - Altered mental status, unspecified (8) Abdominal pain Abdominal location: generalized Qualified Code(s): R10.84 - Generalized abdominal pain (9) Hypertension Hypertension type: essential hypertension Qualified Code(s): I10 - Essential (primary) hypertension (10) Stroke CVA mechanism: unspecified Qualified Code(s): I63.9 - Cerebral infarction, unspecified
[2018-10-25] MEDS: METOPROLOL TARTRATE 25 MG TAB PO SCH (10:22)
[2018-10-25] MEDS: ACETAMINOPHEN 500 MG TAB PO SCH ×2 (10:22→20:07)
[2018-10-25] MEDS: CLOPIDOGREL BISULFATE 75 MG TAB PO SCH (10:22)
[2018-10-25] MEDS: RIVASTIGMINE TARTRATE 1.5 MG CAP PO SCH (10:22)
[2018-10-25] MEDS: NITROFURANTOIN MONOHYDRATE 100 MG CAP PO SCH ×2 (10:22→20:06)
[2018-10-25] MEDS: ATORVASTATIN 10 MG TAB PO SCH (10:22)
[2018-10-25] MEDS: risperiDONE 0.5 MG TABLET PO SCH ×3 (10:22→16:47)
[2018-10-25] MEDS: THIAMINE HCL 50 MG TABLET PO SCH (10:23)
--- NOTE | 2018-10-25 15:02 | Gastroenterology Progress Note ---
Date of Service October 25, 2018 Assessment & Plan (1) Abdominal pain: Cannot obtain a reliable history from this patient given cognitive status. If patien is able to tolerate diet without vomiting then that would seem to indicate no current abd pain ? stone in duct on MRCP--radiolog thought probable artifact and LFTs normal--It is true that a stone can be present and not raise LFTS but intermittently obstruct and cause symptoms. However, ERCP is a significant procedure with general anesthesia and risks in this patient with other comorbities so would want to make sure there is a strong indication. At this point tolerating solid diet. . Follow LFTs and lipase constipation--recent diarrhea but may be body trying to eliminate after several days no BM. Check Cdiff if has liquid stool. Given hx of recent fecal impaction, I think patient has baseline severe constipation and needs to be on bowel regimen for example miralax 34 gm bid to keep bowels moving. Continue supportive care. No plans for ERCP at present. Subjective cc f/u abd pain, Constipation HPI Daughter and DR Hernandez with patient for H and P. Apparently had small BM today. Family able to get patient to eat good meal today. Review of Systems Review of Systems: Unobtainable due to cognitive status Physical Exam Constitutional: WD/WN, vitals as above Respiratory: normal respiratory effort, lungs clear to auscultation Cardiovascular: RRR, no murmur, no edema Gastrointestinal (Abdomen): normal bowel sounds, soft, nontender, no hepatosplenomegaly Psychiatric: lethargic at present Results & Data Vital Signs (Past 12 Hours) Vital Signs Temp Pulse Resp BP Pulse Ox 10/25/18 07:28 36.3 C L 47 L 18 174/69 H 97 (1) Abdominal pain Abdominal location: generalized Qualified Code(s): R10.84 - Generalized abdominal pain
[2018-10-25] MEDS: CELECOXIB 100 MG CAP PO SCH (20:04)
[2018-10-25] MEDS: clonazePAM 0.5 MG TAB PO SCH (20:05)
[2018-10-25] MEDS: MIRABEGRON ER 25 MG TAB PO SCH (20:07)
[2018-10-25] MEDS: CHOLECALCIFEROL 1,000 UNITS TAB PO SCH (20:08)
[2018-10-25] MEDS ORDERED: POLYETHYLENE (MIRALAX) 17 GM PACK PO SCH (21:00)
[2018-10-26 05:58] LABS: Basophils # (auto) 0.02 K/uL (0-0.2); Basophils % (auto) 0.4 %; Eosinophils # (auto) 0.12 K/uL (0-0.5); Eosinophils % (auto) 2.4 %; Hematocrit (blood only) 32.7 % (37-47); Hemoglobin 10.7 g/dL (12.0-16.0); Immature Granulocytes # (auto) 0.01 K/uL (0.00-0.02); Immature Granulocytes % (auto) 0.2 %; Lymphocytes # (auto) 1.98 K/uL (1.2-3.4); Lymphocytes % (auto) 39.3 %; Mean Corpuscular Hgb Conc 32.7 g/dL (32-36); Mean Corpuscular Volume 88.1 fL (80-100); Mean Platelet Volume 10.8 fL (7.4-10.4); Monocytes % (auto) 9.9 %; Neutrophils # (auto) 2.41 K/uL (1.4-6.5); Neutrophils % (auto) 47.8 %; Platelet Count 125 K/uL (130-400); RDW Coefficient of Variation 13.3 % (11.5-14.5); RDW Standard Deviation 42.9 fL (36.4-46.3); Red Blood Count 3.71 M/uL (4.2-5.4); White Blood Count 5.04 K/uL (4.8-10.8)
[2018-10-26 06:31] LABS: BUN Creatinine Ratio 14.2 (10-20); Calcium 8.7 mg/dl (8.5-10.1); Creatinine Clr Calc Pharmacy 49.8 ml/min; Est GFR (African American) 76.6; Est GFR (Non-African American) 66.1; Potassium 3.8 mmol/L (3.5-5.1)
[2018-10-26 06:33] LABS: Bilirubin,Total 0.3 mg/dl (0.2-1); Globulin 3.1 gm/dl (2.5-4.0); Total Protein 6.1 gm/dl (6.4-8.2)
[2018-10-26] MEDS: HEPARIN SOD 5,000 UNIT/0.5 ML VIAL SQ SCH ×2 (09:46→20:21)
[2018-10-26] MEDS: risperiDONE 0.5 MG TABLET PO SCH ×3 (09:47→16:07)
[2018-10-26] MEDS: ATORVASTATIN 10 MG TAB PO SCH (09:48)
[2018-10-26] MEDS: METOPROLOL TARTRATE 25 MG TAB PO SCH (09:48)
[2018-10-26] MEDS: NITROFURANTOIN MONOHYDRATE 100 MG CAP PO SCH ×2 (09:48→20:19)
[2018-10-26] MEDS: RIVASTIGMINE TARTRATE 1.5 MG CAP PO SCH (09:48)
[2018-10-26] MEDS: CLOPIDOGREL BISULFATE 75 MG TAB PO SCH (09:49)
[2018-10-26] MEDS: THIAMINE HCL 50 MG TABLET PO SCH (09:49)
[2018-10-26] MEDS: ACETAMINOPHEN 500 MG TAB PO SCH ×2 (09:57→20:29)
--- NOTE | 2018-10-26 14:48 | Gastroenterology Progress Note ---
Date of Service October 26, 2018 Assessment & Plan (1) Abdominal pain: Cannot obtain a reliable history from this patient given cognitive status. If patien is able to tolerate diet without vomiting then that would seem to indicate no current abd pain ? stone in duct on MRCP--radiolog thought probable artifact and LFTs normal--It is true that a stone can be present and not raise LFTS but intermittently obstruct and cause symptoms. However, ERCP is a significant procedure with general anesthesia and risks in this patient with other comorbities so would want to make sure there is a strong indication. At this point tolerating solid diet. . Follow LFTs and lipase constipation--recent diarrhea but may be body trying to eliminate after several days no BM. Given hx of recent fecal impaction, I think patient has baseline severe constipation and needs to be on bowel regimen for example miralax 34 gm bid to keep bowels moving. Continue supportive care. No plans for ERCP at present. She has been on only 17 gm miralax daily and I mentioned to DR Hernandez regarding increasing that which he said he would do. Subjective cc f/u abd pain, constipation HPI Per nursing no stools since 08/24/18 but no complaint of pain. Discussed with DR Hernandez who states patient told him she had abd pain. Pt stated pain to me and when asked where she pointed to IV site in her arm. Eating about 25% of her diet per nursing. Review of Systems Review of Systems: Unobtainable due to cognitive status Physical Exam 2 Constitutional: WD/WN, vitals as above Respiratory: normal respiratory effort, lungs clear to auscultation Cardiovascular: RRR, no murmur, no edema Gastrointestinal (Abdomen): normal bowel sounds, soft, nontender, no hepatosplenomegaly Psychiatric: Orientation: alert Results & Data Vital Signs (Past 12 Hours) Vital Signs Temp Pulse Resp BP Pulse Ox 10/26/18 09:59 36.9 C 102 H 20 168/83 H 99 (1) Abdominal pain Abdominal location: generalized Qualified Code(s): R10.84 - Generalized abdominal pain
[2018-10-26] MEDS ORDERED: POLYETHYLENE (MIRALAX) 17 GM PACK PO ONE (15:00)
--- NOTE | 2018-10-26 16:39 | Hospitalist Progress Note ---
Date of Service October 26, 2018 Assessment & Plan (1) Abdominal pain: Present for 2 weeks per family. Resolved after bowel movements. CT abd/pelvis with gallstones and chronic extrahepatic biliary ductal dilatation. RUQ u/s then obtained - also w/ gallstones/sludge and CBD of 11mm. LFTs wnl. Significant stool load seen on imaging this may be the etiology of her pain large bowel movements x3 on 610 with resolution of her pain no bowel movement since escalating cardiac agents with the supervision of gastroenterology MRCP obtained - gallstones seen, no evidence of cholecystitis, but possible 7mm filling defect in CBD. Unasyn started yesterday to cover for any infectious process of biliary tract. Consulted Dr Joseph from [facility] - following his visit we discussed her case in detail. Given normal LFTs, ability to eat in the last 1-2 days, etc -- plan to OBSERVE patient rather than pursuing ERCP at this time. Diarrhea present prior to admission is likely overflow diarrhea Allow diet. (2) Gallstones: Seen on CT and u/s. MRCP with stones but no findings to suggest acute cholecystitis. LFTs normal. [facility] Dr Joseph consulted no plans on ERCP as with normal LFTs he feels the risk outweighs the reward for possible intervention as the patient is not clinically behaving like she has choledocholithiasis or cholecystitis. Empiric unasyn was stopped no recurrence of pain or symptoms (3) Diarrhea: No diarrhea since admission despite report of diarrhea at home. X-ray suggest increased stool load improved with the MiraLAX will increase to twice daily dosing (4) Dehydration: Resolved (5) Hypernatremia: Resolved. IV fluids (6) Altered mental status: Metabolic encephalopathy from infectious process no evidence of infectious process seen metabolic encephalopathy is therefore ruled out (7) Dementia with behavioral disturbance: Agitation/delirium -likely related to pain and discomfort Cont usual dose of risperdal TID. (8) Hypertension: Remains on metoprolol. Acute spikes likely due to agitation. Follow for now. Would not be overly aggressive with HTN treatment. (9) Aortic stenosis: h/o bioprosthetic AV. echo 09/2018 with intact valve function. (10) Anxiety: takes klonipin at HS chronically. also on risperdal TID. reported h/o medical THC -- for anxiety?? prescribed by local psychiatrist?? (11) Stroke: Numerous prior strokes and then had acute/subacute strokes (right temporal region, left cerebellum) on MRI in early September 2018. Remains on plavix for secondary prevention. Dementia is likely vascular in origin. (12) Hyperlipidemia: statin therapy (13) CHF (congestive heart failure): history of. HFpEF (14) Diabetes: a1c 5.9% in 09/2018. pre-DM. serum glucose levels cont to be acceptable even with dextrose-containing fluids. (15) Recurrent UTI: on macrobid prophylaxis. Which continues once Unasyn stopped u/a at admission not suspicious for infection. (16) Chronic kidney disease, stage 3a: baseline Cr 0.8 to 0.9 BMP stable today (17) DVT prophylaxis: heparin 5000 BID care plan d/w Dr Joseph from [facility] updated daughter at bedside today 10/25 updated son, Dixon, who acts as POA for patient spoke to him at length by phone this evening Dixon asks that he has as many updates as possible on day to day basis PT, OT mayeals requested Subjective Patient remains in better usual states she was feeling some mild abdominal pain she is having no bowel movement since her large evacuation of 2 days ago. We did increase her cathartic agents with oversight of gastroenterology. I updated Esperanza, her daughter, as I tried to call her son gene with no answer but solute assures me she will communicate noted that tomorrow is likely a target discharge day Review of Systems Review of Systems: Unobtainable due to cognitive status Physical Exam Physical Exam: The patient appeared to be no active distress Vital signs as documented. Head exam is unremarkable. normocephalic, atraumatic Neck is without jugular venous distension, thyromegaly, or lymphademopathy Lungs are clear to auscultation and percussion. Cardiac exam reveals Rhythm is regular. First and second heart sounds normal. Abdominal exam reveals normal bowel sounds, no masses, no organomegaly nontender to palpation no guarding Extremities are nonedematous and both pedal pulses are present Neurologic exam is she is awake and follow commands and she can mumble a few words Psychologically seems neither anxious or depressed Skin is warm / Dry Results & Data Vital Signs (Past 12 Hours) Vital Signs Temp Pulse Resp BP BP Pulse Ox 10/26/18 16:16 36.9 C 78 20 191/81 H 98 10/26/18 09:59 36.9 C 102 H 20 168/83 H 99 (1) Dementia with behavioral disturbance Dementia type: vascular dementia Qualified Code(s): F01.51 - Vascular dementia with behavioral disturbance (2) Diabetes Diabetes mellitus complication status: without complication Diabetes mellitus long term care social worker insulin use: without prison use Diabetes mellitus type: type 2 Qualified Code(s): E11.9 - Type 2 diabetes mellitus without complications (3) CHF (congestive heart failure) Heart failure chronicity: unspecified Heart failure type: unspecified Qualified Code(s): I50.9 - Heart failure, unspecified (4) Aortic stenosis Cardiac valve disease etiology: etiology unspecified Qualified Code(s): I35.0 - Nonrheumatic aortic (valve) stenosis (5) Diarrhea Diarrhea type: unspecified type Qualified Code(s): R19.7 - Diarrhea, unspecified (6) Hyperlipidemia Hyperlipidemia type: mixed hyperlipidemia Qualified Code(s): E78.2 - Mixed hyperlipidemia (7) Altered mental status Altered mental status type: unspecified Qualified Code(s): R41.82 - Altered mental status, unspecified (8) Abdominal pain Abdominal location: generalized Qualified Code(s): R10.84 - Generalized abdominal pain (9) Hypertension Hypertension type: essential hypertension Qualified Code(s): I10 - Essential (primary) hypertension (10) Stroke CVA mechanism: unspecified Qualified Code(s): I63.9 - Cerebral infarction, unspecified
[2018-10-26] MEDS: POLYETHYLENE (MIRALAX) 17 GM PACK PO SCH (20:18)
[2018-10-26] MEDS: CHOLECALCIFEROL 1,000 UNITS TAB PO SCH (20:20)
[2018-10-26] MEDS: CELECOXIB 100 MG CAP PO SCH (20:20)
[2018-10-26] MEDS: MIRABEGRON ER 25 MG TAB PO SCH (20:20)
[2018-10-26] MEDS: clonazePAM 0.5 MG TAB PO SCH (20:27)
[2018-10-27 08:31] LABS: Basophils # (auto) 0.02 K/uL (0-0.2); Basophils % (auto) 0.4 %; Hemoglobin 11.1 g/dL (12.0-16.0); Lymphocytes # (auto) 1.46 K/uL (1.2-3.4); Lymphocytes % (auto) 29.9 %; Mean Corpuscular Hgb Conc 33.6 g/dL (32-36); Mean Corpuscular Volume 87.5 fL (80-100); Mean Platelet Volume 10.4 fL (7.4-10.4); Monocytes # (auto) 0.43 K/uL (0.11-0.59); Monocytes % (auto) 8.8 %; Neutrophils # (auto) 2.88 K/uL (1.4-6.5); Neutrophils % (auto) 58.9 %; Platelet Count 131 K/uL (130-400); RDW Coefficient of Variation 13.3 % (11.5-14.5); RDW Standard Deviation 42.8 fL (36.4-46.3); Red Blood Count 3.77 M/uL (4.2-5.4); White Blood Count 4.89 K/uL (4.8-10.8)
[2018-10-27] MEDS: risperiDONE 0.5 MG TABLET PO SCH ×2 (08:50→14:25)
[2018-10-27] MEDS: HEPARIN SOD 5,000 UNIT/0.5 ML VIAL SQ SCH (08:50)
[2018-10-27] MEDS: POLYETHYLENE (MIRALAX) 17 GM PACK PO SCH (08:51)
[2018-10-27] MEDS: CLOPIDOGREL BISULFATE 75 MG TAB PO SCH (08:51)
[2018-10-27] MEDS: ATORVASTATIN 10 MG TAB PO SCH (08:51)
[2018-10-27] MEDS: NITROFURANTOIN MONOHYDRATE 100 MG CAP PO SCH (08:52)
[2018-10-27] MEDS: THIAMINE HCL 50 MG TABLET PO SCH (08:52)
[2018-10-27] MEDS: METOPROLOL TARTRATE 25 MG TAB PO SCH (08:52)
[2018-10-27] MEDS: RIVASTIGMINE TARTRATE 1.5 MG CAP PO SCH (08:54)
[2018-10-27] MEDS: ACETAMINOPHEN 500 MG TAB PO SCH (08:55)
[2018-10-27 09:00] LABS: Albumin Level 3.3 gm/dl (3.4-5.0); BUN Creatinine Ratio 12.4 (10-20); Calcium 9.6 mg/dl (8.5-10.1); Est GFR (African American) 82.6; Est GFR (Non-African American) 71.3; Potassium 3.8 mmol/L (3.5-5.1)
[2018-10-27 09:04] LABS: Bilirubin,Total 0.4 mg/dl (0.2-1); Globulin 3.3 gm/dl (2.5-4.0); Total Protein 6.6 gm/dl (6.4-8.2)
--- NOTE | 2018-10-27 16:34 | Discharge Summary ---
Date of Service October 27, 2018 Admission HPI Per Admitting Provider Ms. Easley is an 82 year old female with a past medical history of C. diff, GI bleed, depression, dementia, CHF, prior stroke, aortic stenosis s/p bioprosthetic valve replacement, hypertension, restless leg syndrome who came to the ED from home today due to a 2-week history of on and off diarrhea, abdominal pain and poor p.o. intake. History is provided by her son due to dementia. Per her son, she is minimally verbal. She is unable to characterize her abdominal pain, but did state that she did not want to eat because of her abdominal pain. Her son notes that she does not normally complain of pain after eating. In itially, her son felt that this was related to a medication (valproic acid) that was started by her psychiatrist for anxiety recently. This was, however discontinued, and the patient continued to complain of abdominal pain and had diarrhea. Hemoccult to 4 episodes of diarrhea, that has been on and off for the past 2 weeks. The diarrhea is described as explosive, watery, without the presence of blood. They state that she has not had any fever or chills at home, and has not had any other complaints. The patient's son reports that her behavior is at baseline, however she has been slightly more agitated of late. She was started on macrobid BID by Dr. Viveros for a recurrent UTI. She is meant to be on this for 1 month. Of note, she lives at home with her two daughters. She also has two nurses that come in for 14 hours a day. Her son states that this arrangement works out well for them. Principal Diagnosis abdominal pain obstipation dementia Discharge Exam confused and agitated at times abd is soft, normal bowel sounds, non tender Discharge Data Allergies Allergy/AdvReac Type Severity Reaction Status Date / Time enalapril Allergy Intermediate Cough Verified 10/21/18 22:04 escitalopram AdvReac Intermediate Hallucinati Verified 10/21/18 22:04 ons Consultations 10/21/18 20:36 ED Decision to Admit Stat 10/23/18 12:45 Consult Gastroenterology Routine Ordered Studies 10/21/18 17:59 CT abd pelvis wo con Stat CT head/brain wo con Stat 10/22/18 23:01 US abdomen limited Routine 10/23/18 16:10 MR MRCP Stat Hospital Course (1) Abdominal pain: Present for 2 weeks per family. Resolved after bowel movements. CT abd/pelvis with gallstones and chronic extrahepatic biliary ductal dilatation. RUQ u/s then obtained - also w/ gallstones/sludge and CBD of 11mm. LFTs wnl. Significant stool load seen on imaging this may be the etiology of her pain large bowel movements x3 on 610 with resolution of her pain no bowel movement since escalating cardiac agents with the supervision of gastroenterology MRCP obtained - gallstones seen, no evidence of cholecystitis, but possible 7mm filling defect in CBD. Unasyn started yesterday to cover for any infectious process of biliary tract. Consulted Dr Joseph from [facility] - following his visit we discussed her case in detail. Given normal LFTs, ability to eat in the last 1-2 days, etc -- plan to OBSERVE patient rather than pursuing ERCP at this time. Diarrhea present prior to admission is likely overflow diarrhea tolerated diet, good bowel movements (2) Gallstones: Seen on CT and u/s. MRCP with stones but no findings to suggest acute cholecystitis. LFTs normal. [facility] Dr Joseph consulted no plans on ERCP as with normal LFTs he feels the risk outweighs the reward for possible intervention as the patient is not clinically behaving like she has choledocholithiasis or cholecystitis. Empiric unasyn was stopped no recurrence of pain or symptoms (3) Diarrhea: No diarrhea since admission despite report of diarrhea at home. X-ray suggest increased stool load improved with the MiraLAX will increase to twice daily dosing (4) Dehydration: Resolved (5) Hypernatremia: Resolved. (6) Altered mental status: Metabolic encephalopathy from infectious process no evidence of infectious process seen metabolic encephalopathy is therefore ruled out (7) Dementia with behavioral disturbance: Agitation/delirium -likely related to pain and discomfort Cont usual dose of risperdal TID. (8) Hypertension: Remains on metoprolol. Acute spikes likely due to agitation. (9) Aortic stenosis: h/o bioprosthetic AV. echo 09/2018 with intact valve function. (10) Anxiety: takes klonipin at HS chronically. also on risperdal TID. reported h/o medical THC -- for anxiety?? prescribed by local psychiatrist?? (11) Stroke: Numerous prior strokes and then had acute/subacute strokes (right temporal region, left cerebellum) on MRI in early September 2018. Remains on plavix for secondary prevention. Dementia is likely vascular in origin. (12) Hyperlipidemia: statin therapy (13) CHF (congestive heart failure): history of. HFpEF (14) Diabetes: a1c 5.9% in 09/2018. pre-DM. serum glucose levels cont to be acceptable even with dextrose-containing fluids. (15) Recurrent UTI: on macrobid prophylaxis. Which continues once Unasyn stopped u/a at admission not suspicious for infection. (16) Chronic kidney disease, stage 3a: baseline Cr 0.8 to 0.9 BMP stable today (17) DVT prophylaxis: heparin 5000 BID care plan d/w Dr Joseph from [facility] updated daughter at bedside today 10/25 updated son, Dixon, who acts as POA for patient agreeable to take home Total Time Total Time Spent Total Time Spent (In Minutes): greater than 30 minutes were required to prepare discharge Discharge Plan Discharge Items Patient Disposition: Home - Home Health Services Reason For Visit: DIARRHEA,ABDOMINAL PAIN,POOR PO INTAKE Discharge Diagnosis: abdominal pain constipation Discharge Goals: Decrease discomfort and Diagnostic testing Activity: Resume your previous activity Activity Comment: pt needs 2 person assistance to transfer positions Non-emergency contact: Primary Care Provider Call non-emergency contact if: you have any medication questions Follow-up/Referrals: Aurora Estrada MD [Primary Care Provider] - Diet: Regular Diet Texture: Dental soft (bite-sized) Addtl Provider Instructions: please give miralax laxative to have at the minimum one good bowel movement every day, you may adjust the dose up or down to achieve this result Prescriptions: New polyethylene glycol 3350 [Miralax] 17 gram Powder In Packet 17 g PO BID Qty: 60 RF: 3 clonazepam 0.5 mg tablet 0.25 mg PO QPM Qty: 45 RF: 0 Continued rivastigmine tartrate 1.5 mg capsule 1.5 mg PO QAM RF: 0 atorvastatin 10 mg tablet 10 mg PO QAM RF: 0 docusate sodium 100 mg Capsule 100 mg PO Q2D PRN (Reason: Constipation) RF: 0 celecoxib 100 mg capsule 100 mg PO PM RF: 0 risperidone 0.5 mg tablet 0.25 mg PO TIDM RF: 0 metoprolol tartrate 25 mg tablet 25 mg PO QAM RF: 0 mirabegron 50 mg tablet extended release 24 hr 50 mg PO HS RF: 0 cholecalciferol (vitamin D3) [Vitamin D3] 2,000 unit Capsule 2,000 units PO HS RF: 0 acetaminophen [Tylenol Extra Strength] 500 mg Tablet 500 mg PO BID RF: 0 thiamine HCl (vitamin B1) [Vitamin B-1] 250 mg Tablet 250 mg PO QAM RF: 0 nitrofurantoin monohyd/m-cryst 100 mg capsule 100 mg PO AMPM RF: 0 clopidogrel 75 mg Tablet 75 mg PO QAM Qty: 30 RF: 0 Stand-Alone Forms: [facility] Discharge Orders: Discharge Order (Routine); Ordered 10/27/18 Ordered By: Alton Hernandez Admission Data Admit Date/Time: 10/22/18 22:07 Attending Provider: Alton Hernandez Admit Provider: Binta Fenton Primary Care Provider: Aurora Estrada V. Other Providers: Velvet Krause Brian D. ; Ryland Thornton Service: Medical Other Interventions: Discharge Summary Assessment (RN) Last Done: 10/27/18 14:30
== END 2018-10-27 17:10 | disposition home health service (06) | DRG 444 ==
LOC: ED 16:40 → 4W 16:40 → SUATTDRO 21:56 → 4W 22:48 → SUATTDRO 10-22 22:07 → 4E 10-25 18:43

== ENCOUNTER 2019-01-18 10:32 | Inpatient (IN) ==
--- NOTE | 2019-01-18 11:50 | History & Physical Report ---
Date of Service January 18, 2019 Assessment & Plan (1) UTI (urinary tract infection): Admit to inpatient on telemetry Vital signs every 4 hours Sitter one-to-one Appreciate infectious diseases recommendation; amphotericin B bladder irrigation for 5 days for Latasha glabrata urinary tract infection. Appreciate psychiatry recommendations to give patient risperidone 0.5 and continue with her 0.25 does 3 times daily, continue with clonazepam 0.5 p.o. nightly. Continue with clonazepam 0.25 mg p.o. daily as needed. Increased to twice daily as needed. CBC CMP BNP Patient had large bowel movement today after stool disimpaction Continue MiraLAX p.o. twice daily DVT prophylaxis Lovenox Continue vitamin D. Follow-up urinary cultures Patient is now full code since we did not meet with family and she is not able to say herself. Present on Admission?: Yes (2) Constipation: Resolved patient had large bowel movement Present on Admission?: Yes (3) Dementia: Chronic issue continue home medicine as the above Present on Admission?: Yes (4) Hyperlipidemia: Continue atorvastatin 10 mg p.o. every morning Present on Admission?: Yes (5) Chronic diastolic (congestive) heart failure: Continue clopidogrel L 75 mg p.o. every morning Present on Admission?: Yes History of Present Illness Chief Complaint: Urinary tract infection, constipation Primary Care Provider: Aurora Estrada MD Patient is a 83 years old female with severe dementia and chronic constipation, past medical history of stroke who was sent from her home per recommendation of the urology office due to deep discomfort and finding of Latasha glabrata in her urine. Patient was left alone in the room without any family present and apparently all information that we have is that patient has a 24 hours gave caregiver that takes care of her at home. Patient herself is unable to answer any question she is claiming out of bed, moaning has somewhat combative behavior. Urine culture was available from urology and January 12 there was found 1-5 white blood cells in urine, no bacteria noted blood culture grew over 100,000 Latasha glabrata and over 100,000 lactobacillus labeled as a cath specimen. Patient was given a course of fluconazole. Patient also noted to have a large amount impacted stool seen on the CT abdomen. Patient is poor historian and difficult to obtain any review of system. No family present. We placed one-to-one sitter at the bedside to help maintaining catheter. Urology stepped in and placed 20 F three-way Sears catheter at the bedside using sterile technique. There obtained clear yellow urine. Patient tolerated procedure without any bleeding or any other difficulty. Sears was left to drain to gravity. Labs are reviewed: White blood cell 7.23 hemoglobin 11.7 hematocrit 35.3 platelets 174, hemoglobin A1c 5.7. Sodium 142, potassium 4.4, BUN 28, creatinine 1.02 GFR 51, lactate [address] abdomen from January 12 shows gallstones with an unchanging biliary duct 12 prominence. Stable bilateral renal cyst. Diffuse chronic diverticulosis no evidence of acute diverticulitis. Mild increase in colonic fecal load with evidence of low laying moderate rectal fecal impaction. Feeling the effect versus flow artifact to the right femoral vein. Venous Doppler was done no evidence of deep Raynaud's thrombosis in the right lower extremities as suggested per CT scan. Decision was made to admit patient to the hospital for urinary tract infection with Latasha glabrata and constipation. Allergies Allergy/AdvReac Type Severity Reaction Status Date / Time enalapril Allergy Intermediate Cough Verified 01/18/19 09:42 escitalopram AdvReac Intermediate Hallucinati Verified 01/18/19 09:42 ons Home Medications Home Medications Medication Instructions Recorded Confirmed Type atorvastatin 10 mg PO QAM 04/04/18 01/18/19 History celecoxib 100 mg PO PM 04/04/18 01/18/19 History cholecalciferol (vitamin D3) 2,000 units PO HS 04/04/18 01/18/19 History [Vitamin D3] docusate sodium 100 mg PO DAILY 04/04/18 01/18/19 History metoprolol tartrate 25 mg PO QAM 04/04/18 01/18/19 History mirabegron 50 mg PO HS 04/04/18 01/18/19 History risperidone 0.25 mg PO TIDM 04/04/18 01/18/19 History rivastigmine tartrate 1.5 mg PO QAM 04/04/18 01/18/19 History acetaminophen [Tylenol Extra 500 mg PO BID 08/26/18 01/18/19 History Strength] clopidogrel 75 mg PO QAM #30 tab 09/18/18 01/18/19 Rx nitrofurantoin monohyd/m-cryst 100 mg PO AMPM 10/21/18 01/18/19 History thiamine HCl (vitamin B1) [Vitamin 250 mg PO QAM 10/21/18 01/18/19 History B-1] polyethylene glycol 3350 [Miralax] 17 g PO BID #60 ea 10/27/18 01/18/19 Rx clonazepam 0.25 mg PO DAILY PRN 01/03/19 01/18/19 History clonazepam 0.5 mg PO HS 01/03/19 01/18/19 History Past Med/Surg History Medical History Hypertension (Chronic) Aortic stenosis (Chronic) Anxiety (Chronic) Diabetes (Resolved) Heart disease (Resolved) Stroke (Resolved) S/P tubal ligation Surgical History H/O aortic valve replacement S/P CABG (coronary artery bypass graft) S/P cataract surgery Family History Other Cancer Hypertension Social History Preferred Language: Occitan Communication Ability: Effective Desizing Machine Operator Required: No Beliefs That Will Affect Care: None Current Living Situation: Family Current Living Situation Comment: lives with daughters Other Information That Helps Us Care for You: No Feels Safe at Home: Yes Smoking Status: Never smoker Do You Dip or Chew Tobacco: No ; Second Hand Exposure: No ; Tobacco Cessation Education Requested by Patient: No Hx Alcohol Use: No Hx Substance Use: No Review of Systems Review of Systems: All systems reviewed & are unremarkable except as noted in HPI & below Physical Exam Constitutional: WD/WN, vitals as above + frail appearing Eyes: PERRL, conjunctivae normal, anicteric sclerae ENMT: external ear and nose normal, oropharynx normal Neck: trachea midline, no thyromegaly Respiratory: normal respiratory effort, lungs clear to auscultation Cardiovascular: Heart Sounds: normal S1 and normal S2 Palpation: + palpable S3 Gastrointestinal (Abdomen): normal bowel sounds, soft, nontender, no hepatosplenomegaly Musculoskeletal: no cyanosis or clubbing, extremities motor strength 5/5 Psychiatric: Eye Contact: + poor eye contact Motor Behavior: + psychomotor agitation Affect: + angry affect Lymphatic: no cervical or axillary lymphadenopathy Code Status & VTE Plan Code Status Full code for now until we discussed with family VTE Prophylaxis Plan VTE Prophylaxis will be ordered: Yes PG Care Time/CCT Total # of Minutes Spent Total Time Spent with Patient: Total time spent is greater than 50% in coordination of care (as documented) at patient's floor/unit and/or counseling patient: (1) Constipation Constipation type: unspecified constipation type Qualified Code(s): K59.00 - Constipation, unspecified (2) Dementia Dementia behavioral disturbance: without behavioral disturbance Dementia type: unspecified type Qualified Code(s): F03.90 - Unspecified dementia without behavioral disturbance (3) Hyperlipidemia Hyperlipidemia type: mixed hyperlipidemia Qualified Code(s): E78.2 - Mixed hyperlipidemia
[2019-01-18] MEDS ORDERED: ZOLPIDEM TARTRATE 5 MG TAB PO PRN (13:30)
[2019-01-18] MEDS ORDERED: clonazePAM 0.5 MG TAB PO PRN (13:30)
[2019-01-18 14:09] LABS: Basophils # (auto) 0.02 K/uL (0-0.2); Basophils % (auto) 0.3 %; Eosinophils # (auto) 0.11 K/uL (0-0.5); Eosinophils % (auto) 1.5 %; Hematocrit (blood only) 35.3 % (37-47); Hemoglobin 11.7 g/dL (12.0-16.0); Immature Granulocytes # (auto) 0.01 K/uL (0.00-0.02); Immature Granulocytes % (auto) 0.1 %; Lymphocytes # (auto) 1.48 K/uL (1.2-3.4); Lymphocytes % (auto) 20.5 %; Mean Corpuscular Volume 90.1 fL (80-100); Mean Platelet Volume 10.3 fL (7.4-10.4); Monocytes # (auto) 0.56 K/uL (0.11-0.59); Monocytes % (auto) 7.7 %; Neutrophils # (auto) 5.05 K/uL (1.4-6.5); Neutrophils % (auto) 69.9 %; Platelet Count 174 K/uL (130-400); RDW Coefficient of Variation 13.5 % (11.5-14.5); RDW Standard Deviation 44.5 fL (36.4-46.3); Red Blood Count 3.92 M/uL (4.2-5.4); White Blood Count 7.23 K/uL (4.8-10.8)
[2019-01-18 14:10] LABS: Mean Corpuscular Hgb Conc 33.1 g/dL (32-36)
[2019-01-18] MEDS: risperiDONE 0.5 MG TABLET PO SCH ×2 (14:21→17:13)
[2019-01-18 14:27] LABS: Estimated Average Glucose 117 mg/dl; Hemoglobin A1C 5.7 % (4.5-5.6)
[2019-01-18 14:32] LABS: Albumin Level 3.5 gm/dl (3.4-5.0); BUN Creatinine Ratio 27.1 (10-20); Calcium 9.5 mg/dl (8.5-10.1); Creatinine Clr Calc Pharmacy 35.2 ml/min; Est GFR (African American) 59.3; Est GFR (Non-African American) 51.2; Potassium 4.4 mmol/L (3.5-5.1)
[2019-01-18 14:36] LABS: Bilirubin,Total 0.6 mg/dl (0.2-1); Globulin 3.4 gm/dl (2.5-4.0); Total Protein 6.9 gm/dl (6.4-8.2)
[2019-01-18] MEDS ORDERED: SOD PHOSPHATE/SOD BIPHOSPHATE ENEMA 132 ML BTL PR STA (14:57)
[2019-01-18] MEDS ORDERED: GLYCERIN ADULT 12 EA SUPP PR ONE (15:00)
--- NOTE | 2019-01-18 15:00 | Infectious Disease Consult ---
Date of Consultation January 18, 2019 Assessment & Plan (1) UTI (urinary tract infection): would suggest ampho bladder irrigation x 5 days for C. glabrata uti. urology following. History of Present Illness Attending Physician: Mayank Conti MD pt admitted from urology office due to discomfort. pt with h/o stroke, on 1:1 during my exam due to combative behavior, tyring to climb out of bed. moaning, unable to answer any questions. She reportedly had urine culture via urology on 01/12 - 1-5 wbc on UA, no bacteria noted but culture grew >100,000 C. glabrata and >100,000 lactobacillus, labeled as cath specimen. was given short course fluconazole per H&P. Sent to ER for ongoing discomfort. no labs done since 01/12, wbc 6.2, creat o.8. Ct abd negative at that time. currently on no abx. afebrile. Allergies Allergy/AdvReac Type Severity Reaction Status Date / Time enalapril Allergy Intermediate Cough Verified 01/18/19 09:42 escitalopram AdvReac Intermediate Hallucinati Verified 01/18/19 09:42 ons Home Medications Home Medications Medication Instructions Recorded Confirmed Type atorvastatin 10 mg PO QAM 04/04/18 01/18/19 History celecoxib 100 mg PO PM 04/04/18 01/18/19 History cholecalciferol (vitamin D3) 2,000 units PO HS 04/04/18 01/18/19 History [Vitamin D3] docusate sodium 100 mg PO DAILY 04/04/18 01/18/19 History metoprolol tartrate 25 mg PO QAM 04/04/18 01/18/19 History mirabegron 50 mg PO HS 04/04/18 01/18/19 History risperidone 0.25 mg PO TIDM 04/04/18 01/18/19 History rivastigmine tartrate 1.5 mg PO QAM 04/04/18 01/18/19 History acetaminophen [Tylenol Extra 500 mg PO BID 08/26/18 01/18/19 History Strength] clopidogrel 75 mg PO QAM #30 tab 09/18/18 01/18/19 Rx nitrofurantoin monohyd/m-cryst 100 mg PO AMPM 10/21/18 01/18/19 History thiamine HCl (vitamin B1) [Vitamin 250 mg PO QAM 10/21/18 01/18/19 History B-1] polyethylene glycol 3350 [Miralax] 17 g PO BID #60 ea 10/27/18 01/18/19 Rx clonazepam 0.25 mg PO DAILY PRN 01/03/19 01/18/19 History clonazepam 0.5 mg PO HS 01/03/19 01/18/19 History Patient History Medical History Hypertension (Chronic) Aortic stenosis (Chronic) Anxiety (Chronic) Diabetes (Resolved) Heart disease (Resolved) Stroke (Resolved) S/P tubal ligation Surgical History H/O aortic valve replacement S/P CABG (coronary artery bypass graft) S/P cataract surgery Family History Other Cancer Hypertension Social History Preferred Language: Lithuanian Communication Ability: Effective Human Resources File Clerk Required: No Beliefs That Will Affect Care: None Current Living Situation: Family Current Living Situation Comment: lives with daughters Other Information That Helps Us Care for You: No Feels Safe at Home: Yes Smoking Status: Never smoker Do You Dip or Chew Tobacco: No ; Second Hand Exposure: No ; Tobacco Cessation Education Requested by Patient: No Hx Alcohol Use: No Hx Substance Use: No Review of Systems Review of Systems: Unobtainable due to cognitive status Physical Exam Constitutional: WD/WN, vitals as above Eyes: PERRL, conjunctivae normal, anicteric sclerae ENMT: external ear and nose normal, oropharynx normal Neck: normal visual inspection Respiratory: normal respiratory effort, lungs clear to auscultation Auscultation: + diminished lung sounds Cardiovascular: RRR, no murmur, no edema Rate/Rhythm: regular rate and regular rhythm Gastrointestinal (Abdomen): Inspection/Auscultation: abdomen normal to inspection; abdomen not distended Musculoskeletal: Head/Neck/Chest: + head abnormal to inspection, normocephalic and head atraumatic moving extremities but does not follow commands. Skin: no rashes, warm and dry Psychiatric: Orientation: alert; + uncooperative Results & Data Vital Signs (Past 12 Hours) Vital Signs Temp Pulse Resp BP Pulse Ox 01/18/19 13:30 36.3 C L 78 18 129/76 96 01/18/19 11:16 36.4 C L 87 18 147/72 H 95 PG Care Time/CCT Total # of Minutes Spent Total Time Spent with Patient: Total time spent is greater than 50% in coordination of care (as documented) at patient's floor/unit and/or counseling patient:
--- NOTE | 2019-01-18 16:02 | Communication Note ---
Date of Service: January 18, 2019 83 YO female with taj glabrata UTI, dementia. Patient evaluated in our outpatient clinic earlier today, please see office note for further documentation. Consulted at hospital for placement of 3-way Sears. Patient combative, moaning, not oriented. Unable to answer questions. 20F 3-way Sears placed at bedside with usual sterile technique. Clear yellow urine return. Patient tolerated procedure well without bleeding or difficulty. Sears was left to drain to gravity. 1:1 sitter at bedside to help maintain catheter. Antibiotics per Infectious Disease. Medical management per primary team. Will continue to intermittently follow, please contact our service if we can be of further assistance.
--- NOTE | 2019-01-18 16:03 | Psychiatric Progress Note ---
Date of Service January 18, 2019 Subjective Subjective Patient discussed with Dr. Conti and chart reviewed, patient with dementia and UTI who is being admitted to hospitalist service and is restless to the point they've been unable to insert a Sears catheter, requesting medication re commendations to calm her so catheter can be placed. Current home meds are unknown, med rec not completed, and patient unable to provide info. Reviewed chart from most recent admission 10/2018, at which time patient was on risperidone 0.25mg tid and clonazepam 0.25mg prn and 0.5mg HS. Per family patient is nonverbal. Spoke with primary attending and recommended one time dose of risperidone 0.5mg, and if ineffective, clonazepam 0.5mg. Physical Exam Vital Signs (Past 24 Hours) Last Vital Signs Temp 36.8 C 01/18/19 15:00 Pulse 80 01/18/19 15:00 Resp 22 01/18/19 15:00 BP 142/65 H 01/18/19 15:00 Pulse Ox 96 01/18/19 15:00 Results & Data Laboratory Results Laboratory Results - last 24 hr 01/18/19 01/18/19 01/18/19 13:56 13:57 13:57 WBC 7.23 RBC 3.92 L Hgb 11.7 L Hct 35.3 L MCV 90.1 MCH 29.8 MCHC 33.1 RDW Std Deviation 44.5 RDW Coeff of [place] 13.5 Plt Count 174 MPV 10.3 Immature Gran % (Auto) 0.1 Neut % (Auto) 69.9 Lymph % (Auto) 20.5 Kay % (Auto) 7.7 Eos % (Auto) 1.5 Baso % (Auto) 0.3 Immature Gran # (Auto) 0.01 Neut # (Auto) 5.05 Lymph # (Auto) 1.48 Kay # (Auto) 0.56 Eos # (Auto) 0.11 Baso # (Auto) 0.02 Sodium 142 Potassium 4.4 Chloride 110 H Carbon Dioxide 27 Anion Gap 5.0 BUN 28 H Creatinine 1.02 Est Cr Clr Drug Dosing 35.2 Est GFR ( Amer) 59.3 Est GFR (Non-Af Amer) 51.2 BUN/Creatinine Ratio 27.1 H Glucose 107 H Estimat Average Glucose 117 Hemoglobin A1c 5.7 H Lactate Calcium 9.5 Total Bilirubin 0.6 AST 18 ALT 16 Alkaline Phosphatase 83 NT-Pro-B Natriuret Pep 580 Total Protein 6.9 Albumin 3.5 Globulin 3.4 Albumin/Globulin Ratio 1.0 01/18/19 13:57 WBC RBC Hgb Hct MCV MCH MCHC RDW Std Deviation RDW Coeff of [place] Plt Count MPV Immature Gran % (Auto) Neut % (Auto) Lymph % (Auto) Kay % (Auto) Eos % (Auto) Baso % (Auto) Immature Gran # (Auto) Neut # (Auto) Lymph # (Auto) Kay # (Auto) Eos # (Auto) Baso # (Auto) Sodium Potassium Chloride Carbon Dioxide Anion Gap BUN Creatinine Est Cr Clr Drug Dosing Est GFR ( Amer) Est GFR (Non-Af Amer) BUN/Creatinine Ratio Glucose Estimat Average Glucose Hemoglobin A1c Lactate 1.0 Calcium Total Bilirubin AST ALT Alkaline Phosphatase NT-Pro-B Natriuret Pep Total Protein Albumin Globulin Albumin/Globulin Ratio Current Inpatient Medications Current Inpatient Medications: Current Inpatient Medications Acetaminophen (Tylenol) 650 mg PO Q4H PRN PRN Reason: Pain or Fever Stop: 02/17/19 13:29 Atorvastatin Calcium (Lipitor) 10 mg PO QAM [facility] Stop: 02/18/19 08:59 Celecoxib (Celebrex) 100 mg PO PM [facility] Stop: 02/17/19 20:59 Clonazepam (Klonopin) 0.5 mg PO HS [facility] Stop: 02/17/19 20:59 Clonazepam (Klonopin) 0.25 mg PO DAILY PRN PRN Reason: Anxiety Stop: 02/17/19 13:29 Clopidogrel Bisulfate (Plavix) 75 mg PO QAM [facility] Stop: 02/18/19 08:59 Docusate Sodium (Colace) 100 mg PO DAILY [facility] Stop: 02/18/19 08:59 Enoxaparin Sodium (Lovenox) 40 mg SQ Q24H [facility] Stop: 02/17/19 21:59 Metoprolol Tartrate (Lopressor) 25 mg PO QAM [facility] Stop: 02/18/19 08:59 Mirabegron (Myrbetriq Er) 50 mg PO HS [facility] Stop: 02/17/19 20:59 Polyethylene Glycol (Miralax Powder Packet) 17 gm PO BID [facility] Stop: 02/17/19 20:59 Risperidone (Risperdal) 0.25 mg PO TIDM [facility] Stop: 02/17/19 13:29 Last Admin: 01/18/19 14:21 Dose: 0.25 mg Documented by: Rivastigmine Tartrate (Exelon) 1.5 mg PO QAM [facility] Stop: 02/18/19 08:59 Thiamine HCl (Vitamin B-1) 250 mg PO QAM [facility] Stop: 02/18/19 08:59 Vitamin D (Vitamin D3) 2,000 units PO HS [facility] Stop: 02/17/19 20:59 Zolpidem Tartrate (Ambien) 5 mg PO HS PRN PRN Reason: Sleep Stop: 02/17/19 13:29 CPT Code CPT Code [id number]
[2019-01-18] MEDS ORDERED: risperiDONE 0.5 MG TABLET PO ONE (16:50)
[2019-01-18] MEDS: AMPHOTERICIN B 50 MG in WATER, STERILE 1,000 ML IR SCH (18:34)
[2019-01-18] MEDS: MIRABEGRON ER 25 MG TAB PO SCH (22:06)
[2019-01-18] MEDS: POLYETHYLENE (MIRALAX) 17 GM PACK PO SCH (22:07)
[2019-01-18] MEDS: CELECOXIB 100 MG CAP PO SCH (22:08)
[2019-01-18] MEDS: ENOXAPARIN INJ 40 MG/0.4 ML SYR SQ SCH (22:10)
[2019-01-18] MEDS: clonazePAM 0.5 MG TAB PO SCH (22:10)
[2019-01-18] MEDS: CHOLECALCIFEROL 1,000 UNITS TAB PO SCH (22:11)
[2019-01-19] MEDS: CLOPIDOGREL BISULFATE 75 MG TAB PO SCH (07:58)
[2019-01-19] MEDS: DOCUSATE SODIUM 100 MG CAP PO SCH (07:59)
[2019-01-19] MEDS: ATORVASTATIN 10 MG TAB PO SCH (07:59)
[2019-01-19] MEDS: METOPROLOL TARTRATE 25 MG TAB PO SCH (07:59)
[2019-01-19 08:00] LABS: Basophils # (auto) 0.02 K/uL (0-0.2); Basophils % (auto) 0.4 %; Eosinophils # (auto) 0.16 K/uL (0-0.5); Eosinophils % (auto) 3.1 %; Hematocrit (blood only) 34.2 % (37-47); Hemoglobin 11.2 g/dL (12.0-16.0); Immature Granulocytes # (auto) 0.01 K/uL (0.00-0.02); Immature Granulocytes % (auto) 0.2 %; Lymphocytes % (auto) 32.8 %; Mean Corpuscular Hgb Conc 32.7 g/dL (32-36); Mean Corpuscular Volume 90.2 fL (80-100); Mean Platelet Volume 10.3 fL (7.4-10.4); Monocytes # (auto) 0.65 K/uL (0.11-0.59); Monocytes % (auto) 12.5 %; Neutrophils # (auto) 2.65 K/uL (1.4-6.5); Platelet Count 146 K/uL (130-400); RDW Coefficient of Variation 13.5 % (11.5-14.5); RDW Standard Deviation 44.2 fL (36.4-46.3); Red Blood Count 3.79 M/uL (4.2-5.4); White Blood Count 5.19 K/uL (4.8-10.8)
[2019-01-19] MEDS: risperiDONE 0.5 MG TABLET PO SCH ×3 (08:00→16:13)
[2019-01-19] MEDS: RIVASTIGMINE TARTRATE 1.5 MG CAP PO SCH (08:00)
[2019-01-19] MEDS: THIAMINE HCL 50 MG TABLET PO SCH (08:01)
[2019-01-19] MEDS: POLYETHYLENE (MIRALAX) 17 GM PACK PO SCH ×2 (08:02→20:21)
[2019-01-19 08:23] LABS: Albumin Level 3.2 gm/dl (3.4-5.0); BUN Creatinine Ratio 31.6 (10-20); Calcium 9.4 mg/dl (8.5-10.1); Creatinine Clr Calc Pharmacy 40.8 ml/min; Est GFR (African American) 70.9; Est GFR (Non-African American) 61.2; Potassium 3.9 mmol/L (3.5-5.1)
[2019-01-19 08:26] LABS: Bilirubin,Total 0.5 mg/dl (0.2-1); Globulin 3.2 gm/dl (2.5-4.0); Total Protein 6.4 gm/dl (6.4-8.2)
--- NOTE | 2019-01-19 13:23 | Psychiatric Consultation ---
Date of Consultation January 19, 2019 Impression / Recommendations (1) Dementia: 01/19 -severe dementia with behavioral disturbance, mental status worsened by encephalopathy due to multiple medical problems. -Daughter states patient typically becomes more restless in the afternoon, and that her low-dose risperidone and clonazepam have been helpful for that. Continue risperidone 0.25 mg 3 times daily and clonazepam 0.5 mg at bedtime and 0.25 mg as needed. If she needs additional as needed medication, can add an additional dose of risperidone 0.25 mg. -Coordinate care with her outpatient psychiatrist, Dr. Melton, and send this note. Dementia behavioral disturbance: without behavioral disturbance Dementia type: unspecified type Qualified Code(s): F03.90 - Unspecified dementia without behavioral disturbance Present on Admission?: Yes Psych History Chief Complaint Patient nonverbal. History of Present Illness Patient is a 83 year old female with severe dementia, chronic constipation, and history of CVA who presented per urology's recommendations due to UTI with Latasha glabrata and moderate fecal impaction. She is nonverbal with 24-hour care at home. She was quite restless on presentation, and psychiatry was consulted for medication recommendations for sedation so that a Sears catheter could be placed. I discussed the case with the primary attending, Dr. Conti, yesterday and recommended an additional risperidone 0.5 mg dose (she is prescribed low-dose risperidone and clonazepam by her outpatient psychiatrist), which she received yesterday and catheter was successfully placed. Today she was seen with her daughter, Rosa M, at the bedside who provided the history. She reports the patient is much better today, is calmer, has been eating well. She states the patient typically becomes more restless and antsy in the afternoon, and that usually the risperidone and clonazepam are helpful to calm her. Past Psychiatric History Outpatient Services: Dr. Melton outpatient psychiatrist Allergies Allergy/AdvReac Type Severity Reaction Status Date / Time enalapril Allergy Intermediate Cough Verified 01/18/19 09:42 escitalopram AdvReac Intermediate Hallucinati Verified 01/18/19 09:42 ons Home Medications Home Medications Medication Instructions Recorded Confirmed Type atorvastatin 10 mg PO QAM 04/04/18 01/18/19 History celecoxib 100 mg PO PM 04/04/18 01/18/19 History cholecalciferol (vitamin D3) 2,000 units PO HS 04/04/18 01/18/19 History [Vitamin D3] docusate sodium 100 mg PO DAILY 04/04/18 01/18/19 History metoprolol tartrate 25 mg PO QAM 04/04/18 01/18/19 History mirabegron 50 mg PO HS 04/04/18 01/18/19 History risperidone 0.25 mg PO TIDM 04/04/18 01/18/19 History rivastigmine tartrate 1.5 mg PO QAM 04/04/18 01/18/19 History acetaminophen [Tylenol Extra 500 mg PO BID 08/26/18 01/18/19 History Strength] clopidogrel 75 mg PO QAM #30 tab 09/18/18 01/18/19 Rx nitrofurantoin monohyd/m-cryst 100 mg PO AMPM 10/21/18 01/18/19 History thiamine HCl (vitamin B1) [Vitamin 250 mg PO QAM 10/21/18 01/18/19 History B-1] polyethylene glycol 3350 [Miralax] 17 g PO BID #60 ea 10/27/18 01/18/19 Rx clonazepam 0.25 mg PO DAILY PRN 01/03/19 01/18/19 History clonazepam 0.5 mg PO HS 01/03/19 01/18/19 History Personal History Beliefs That Will Affect Care: None Patient History Medical History Hypertension (Chronic) Aortic stenosis (Chronic) Anxiety (Chronic) Diabetes (Resolved) Heart disease (Resolved) Stroke (Resolved) S/P tubal ligation Surgical History H/O aortic valve replacement S/P CABG (coronary artery bypass graft) S/P cataract surgery Family History Other Cancer Hypertension Social History Preferred Language: Irish Communication Ability: Unable Film Processing Supervisor Required: No Beliefs That Will Affect Care: None Current Living Situation: Family Current Living Situation Comment: lives with daughters Other Information That Helps Us Care for You: No Feels Safe at Home: Yes Smoking Status: Never smoker Do You Dip or Chew Tobacco: No ; Second Hand Exposure: No ; Tobacco Cessation Education Requested by Patient: No Hx Alcohol Use: No Hx Substance Use: No Physical Exam Psychiatric: Elderly white female, lying in bed curled in a position, pained look on her face. Nonverbal, but occasionally moans. Response to daughter's voice. Does not make eye contact despite attempts to engage her. Calm, but unable to participate in the assessment. Vital Signs (Past 24 Hours): Last Vital Signs Temp 36.7 C 01/19/19 08:24 Pulse 87 01/19/19 08:24 Resp 18 01/19/19 08:24 BP 159/85 H 01/19/19 08:24 Pulse Ox 95 01/19/19 08:24 Review of Systems Unobtainable due to cognitive status Results & Data Medications Administered Atorvastatin Calcium (Lipitor) 10 mg PO QAM [facility] Stop: 02/18/19 08:59 Last Admin: 01/19/19 07:59 Dose: 10 mg Documented by: [id number] Celecoxib (Celebrex) 100 mg PO PM [facility] Stop: 02/17/19 20:59 Last Admin: 01/18/19 22:08 Dose: 100 mg Documented by: [id number] Clonazepam (Klonopin) 0.5 mg PO HS [facility] Stop: 02/17/19 20:59 Last Admin: 01/18/19 22:10 Dose: 0.5 mg Documented by: [id number] Clopidogrel Bisulfate (Plavix) 75 mg PO QAM [facility]UJIT Stop: 02/18/19 08:59 Last Admin: 01/19/19 07:58 Dose: 75 mg Documented by: [id number] Docusate Sodium (Colace) 100 mg PO DAILY [facility] Stop: 02/18/19 08:59 Last Admin: 01/19/19 07:59 Dose: 100 mg Documented by: [id number] Enoxaparin Sodium (Lovenox) 40 mg SQ Q24H [facility] Stop: 02/17/19 21:59 Last Admin: 01/18/19 22:10 Dose: 40 mg Documented by: [id number] Amphotericin B 50 mg/ Sterile (Water) 1,000 mls @ 41.667 mls/hr IR DAILY@1800 [facility] Stop: 01/28/19 17:59 Last Admin: 01/18/19 18:34 Dose: 41.667 mls/hr Documented by: [id number] Metoprolol Tartrate (Lopressor) [facility] Stop: 02/18/19 08:59 Last Admin: 01/19/19 07:59 Dose: 25 mg Documented by: [id number] Mirabegron (Myrbetriq Er) 50 mg PO [facility] Stop: 02/17/19 20:59 Last Admin: 01/18/19 22:06 Dose: 50 mg Documented by: [id number] Polyethylene Glycol (Miralax Powder Packet) 17 gm PO BID [facility] Stop: 02/17/19 20:59 Last Admin: 01/19/19 08:02 Dose: 17 gm Documented by: [id number] Admin: 01/18/19 22:07 Dose: Not Given Documented by: [id number] Risperidone (Risperdal) 0.25 mg PO TIDM [facility] Stop: 02/17/19 13:29 Last Admin: 01/19/19 12:44 Dose: 0.25 mg Documented by: [id number] Admin: 01/19/19 08:00 Dose: 0.25 mg Documented by: [id number] Admin: 01/18/19 17:13 Dose: Not Given Documented by: [id number] Admin: 01/18/19 14:21 Dose: 0.25 mg Documented by: [id number] Rivastigmine Tartrate (Exelon) 1.5 mg PO [facility] Stop: 02/18/19 08:59 Last Admin: 01/19/19 08:00 Dose: 1.5 mg Documented by: [id number] Thiamine HCl (Vitamin B-1) 250 mg PO [facility] Stop: 02/18/19 08:59 Last Admin: 01/19/19 08:01 Dose: 250 mg Documented by: [id number] Vitamin D (Vitamin D3) 2,000 units PO [facility] Stop: 02/17/19 20:59 Last Admin: 01/18/19 22:11 Dose: 2,000 units Documented by: [id number]
[2019-01-19] MEDS: clonazePAM 0.5 MG TAB PO PRN (13:29)
[2019-01-19] MEDS: AMPHOTERICIN B 50 MG in WATER, STERILE 1,000 ML IR SCH (18:34)
--- NOTE | 2019-01-19 19:54 | Hospitalist Progress Note ---
Date of Service January 19, 2019 Assessment & Plan (1) UTI (urinary tract infection): UTI present on admission without sepsis Latasha glabrata grew up on cultures obtained on 01/12 Fungal buds are seen in current urine analysis, awaiting culture Follow-up blood cultures Order procalcitonin Appreciate infectious diseases recommendation; amphotericin B bladder irrigation for 5 days for Latasha glabrata urinary tract infection. Appreciate psychiatry recommendations to give patient risperidone 0.5 and continue with her 0.25 does 3 times daily, continue with clonazepam 0.5 p.o. nightly. Continue with clonazepam 0.25 mg p.o. daily as needed. Increased to twice daily as needed. Based on long discussion with daughter and son, appears to be at baseline (2) Constipation: Resolved patient had large bowel movement (3) Dementia: Appears to be as baseline as per 5 (4) Hyperlipidemia: Continue atorvastatin 10 mg p.o. every morning (5) Chronic diastolic (congestive) heart failure: Continue clopidogrel 75 mg p.o. every morning Subjective Laying down in bed appears to be comfortable, nonverbal to me but I spoke with son and daughter in length, she appears to be at her baseline per Review of Systems Review of Systems: Review of system is unobtainable due to patient dementia Physical Exam Physical Exam: Physical examination General patient appears to be frail elderly female HEENT: Atraumatic , normocephalic /no jaundice /no pallor /anicteric /no dry mucous membrane /normal external ear inspection Neck: Supple /no swelling /central trach Heart: S1/S2 normal/regular rate and rhythm/no gallop /no rub /no murmur Lungs: Clear to auscultation bilaterally/normal chest with expansion/no rhonchi/no rales/no wheezing/no use of accessory muscles of respiration Abdomen: Soft/nontender/no guarding/no rebound/no organomegaly/no pulsatile mass Musculoskeletal: No swelling/no edema/no tenderness/normal range of motion Neuro exam: Awake alert, moves all extremities but did not follow commands to me, nonverbal Psychiatric evaluation: Unable to evaluate but appears to be calm Skin: No rash on exposed skin area/no erythema Extremity: Normal pulse/no pitting edema/no clubbing or cyanosis Results & Data Vital Signs (Past 12 Hours) Vital Signs Temp Pulse Pulse Resp BP Pulse Ox 01/19/19 19:05 37.1 C 78 20 112/69 97 01/19/19 15:56 36.6 C 62 18 104/64 97 01/19/19 08:24 36.7 C 87 18 159/85 H 95 PG Care Time/CCT Total # of Minutes Spent Total Time Spent with Patient: 35 minutes total time spent is greater than 50% in coordination of care (as documented) at patient's floor/unit and/or counseling patient/family discussion of care with nursing staff (1) Constipation Constipation type: unspecified constipation type Qualified Code(s): K59.00 - Constipation, unspecified (2) Dementia Dementia behavioral disturbance: without behavioral disturbance Dementia type: unspecified type Qualified Code(s): F03.90 - Unspecified dementia without behavioral disturbance (3) Hyperlipidemia Hyperlipidemia type: mixed hyperlipidemia Qualified Code(s): E78.2 - Mixed hyperlipidemia
[2019-01-19] MEDS: CELECOXIB 100 MG CAP PO SCH (20:19)
[2019-01-19] MEDS: CHOLECALCIFEROL 1,000 UNITS TAB PO SCH (20:19)
[2019-01-19] MEDS: MIRABEGRON ER 25 MG TAB PO SCH (20:19)
[2019-01-19] MEDS: clonazePAM 0.5 MG TAB PO SCH (20:21)
[2019-01-19] MEDS: ENOXAPARIN INJ 40 MG/0.4 ML SYR SQ SCH (21:19)
[2019-01-20 08:15] LABS: Basophils # (auto) 0.02 K/uL (0-0.2); Basophils % (auto) 0.4 %; Eosinophils # (auto) 0.12 K/uL (0-0.5); Eosinophils % (auto) 2.3 %; Hematocrit (blood only) 33.4 % (37-47); Immature Granulocytes # (auto) 0.01 K/uL (0.00-0.02); Immature Granulocytes % (auto) 0.2 %; Lymphocytes # (auto) 1.87 K/uL (1.2-3.4); Lymphocytes % (auto) 36.5 %; Mean Corpuscular Hgb Conc 32.9 g/dL (32-36); Mean Corpuscular Volume 89.1 fL (80-100); Mean Platelet Volume 10.6 fL (7.4-10.4); Monocytes % (auto) 11.7 %; Neutrophils # (auto) 2.51 K/uL (1.4-6.5); Neutrophils % (auto) 48.9 %; Platelet Count 153 K/uL (130-400); RDW Coefficient of Variation 13.4 % (11.5-14.5); RDW Standard Deviation 43.6 fL (36.4-46.3); Red Blood Count 3.75 M/uL (4.2-5.4); White Blood Count 5.13 K/uL (4.8-10.8)
[2019-01-20 08:42] LABS: Albumin Level 3.2 gm/dl (3.4-5.0); BUN Creatinine Ratio 28.8 (10-20); Calcium 9.1 mg/dl (8.5-10.1); Est GFR (Non-African American) 54.4; Potassium 4.2 mmol/L (3.5-5.1)
[2019-01-20 08:45] LABS: Bilirubin,Total 0.5 mg/dl (0.2-1); Globulin 3.1 gm/dl (2.5-4.0); Total Protein 6.3 gm/dl (6.4-8.2)
[2019-01-20] MEDS: THIAMINE HCL 50 MG TABLET PO SCH (09:04)
[2019-01-20] MEDS: risperiDONE 0.5 MG TABLET PO SCH ×3 (09:05→17:48)
[2019-01-20] MEDS: CLOPIDOGREL BISULFATE 75 MG TAB PO SCH (09:06)
[2019-01-20] MEDS: RIVASTIGMINE TARTRATE 1.5 MG CAP PO SCH (09:06)
[2019-01-20] MEDS: METOPROLOL TARTRATE 25 MG TAB PO SCH (09:07)
[2019-01-20] MEDS: DOCUSATE SODIUM 100 MG CAP PO SCH (09:08)
[2019-01-20] MEDS: ATORVASTATIN 10 MG TAB PO SCH (09:08)
[2019-01-20] MEDS: POLYETHYLENE (MIRALAX) 17 GM PACK PO SCH ×2 (09:12→20:31)
[2019-01-20] MEDS: ACETAMINOPHEN 325 MG TAB PO PRN ×2 (09:14→13:25)
[2019-01-20] MEDS: clonazePAM 0.5 MG TAB PO PRN (13:24)
--- NOTE | 2019-01-20 17:16 | Hospitalist Progress Note ---
Date of Service January 20, 2019 Assessment & Plan (1) UTI (urinary tract infection): UTI present on admission without sepsis Latasha glabrata grew up on cultures obtained on 01/12 Fungal buds are seen in current urine analysis, awaiting culture Follow-up blood cultures procalcitonin is less than 0.05 Appreciate infectious diseases recommendation; amphotericin B bladder irrigation for 5 days for Latasha glabrata urinary tract infection. Today is day 05/21 Appreciate psychiatry recommendations to give patient risperidone 0.5 and continue with her 0.25 does 3 times daily, continue with clonazepam 0.5 p.o. nightly. Continue with clonazepam 0.25 mg p.o. daily as needed. Increased to twice daily as needed. Based on long discussion with daughter and son, appears to be at baseline (2) Constipation: Resolved patient had large bowel movement (3) Dementia: Appears to be as baseline as per 5 (4) Hyperlipidemia: Continue atorvastatin 10 mg p.o. every morning (5) Chronic diastolic (congestive) heart failure: Continue clopidogrel 75 mg p.o. every morning Subjective Nonverbal, discussed with nursing staff, tolerating the bladder irrigation while Appears calm, not agitated Review of Systems Review of Systems: Review of system not obtainable due to patient dementia Physical Exam Physical Exam: Physical examination General frail elderly female appears to be comfortable, not in acute distress HEENT: Atraumatic , normocephalic /no jaundice /no pallor /anicteric /no dry mucous membrane /normal external ear inspection Neck: Supple /no swelling /central trach Heart: S1/S2 normal/regular rate and rhythm/no gallop /no rub /no murmur Lungs: Clear to auscultation bilaterally/normal chest with expansion/no rhonchi/no rales/no wheezing/no use of accessory muscles of respiration Abdomen: Soft/nontender/no guarding/no rebound/no organomegaly/no pulsatile mass Musculoskeletal: No swelling/no edema/no tenderness/normal range of motion Neuro exam: Awake nonverbal, does not follow commands, but moves all asked Psychiatric evaluation: Unable to eval Skin: No rash on exposed skin area/no erythema Extremity: Normal pulse/no pitting edema/no clubbing or cyanosis Results & Data Vital Signs (Past 12 Hours) Vital Signs Temp Pulse Pulse Pulse Resp BP Pulse Ox 01/20/19 16:47 76 01/20/19 15:22 36.5 C 67 18 103/61 98 01/20/19 07:17 67 01/20/19 07:00 35.4 C L 75 18 131/74 95 PG Care Time/CCT Total # of Minutes Spent Total Time Spent with Patient: Total time spent is greater than 50% in coordination of care (as documented) at patient's floor/unit and/or counseling patient: (1) Constipation Constipation type: unspecified constipation type Qualified Code(s): K59.00 - Constipation, unspecified (2) Dementia Dementia behavioral disturbance: without behavioral disturbance Dementia type: unspecified type Qualified Code(s): F03.90 - Unspecified dementia without behavioral disturbance (3) Hyperlipidemia Hyperlipidemia type: mixed hyperlipidemia Qualified Code(s): E78.2 - Mixed hyperlipidemia
[2019-01-20] MEDS: AMPHOTERICIN B 50 MG in WATER, STERILE 1,000 ML IR SCH (18:13)
[2019-01-20] MEDS ORDERED: clonazePAM 0.5 MG TAB PO ONE (18:15)
[2019-01-20] MEDS: CELECOXIB 100 MG CAP PO SCH (20:31)
[2019-01-20] MEDS: CHOLECALCIFEROL 1,000 UNITS TAB PO SCH (20:31)
[2019-01-20] MEDS: MIRABEGRON ER 25 MG TAB PO SCH (20:31)
[2019-01-20] MEDS: ENOXAPARIN INJ 40 MG/0.4 ML SYR SQ SCH (21:13)
[2019-01-21] MEDS: clonazePAM 0.5 MG TAB PO PRN (03:46)
[2019-01-21] MEDS: CLOPIDOGREL BISULFATE 75 MG TAB PO SCH (08:42)
[2019-01-21] MEDS: METOPROLOL TARTRATE 25 MG TAB PO SCH (08:43)
[2019-01-21] MEDS: risperiDONE 0.5 MG TABLET PO SCH ×3 (08:43→17:37)
[2019-01-21] MEDS: DOCUSATE SODIUM 100 MG CAP PO SCH (08:43)
[2019-01-21] MEDS: ATORVASTATIN 10 MG TAB PO SCH (08:44)
[2019-01-21] MEDS: POLYETHYLENE (MIRALAX) 17 GM PACK PO SCH ×2 (08:44→21:31)
[2019-01-21] MEDS: THIAMINE HCL 50 MG TABLET PO SCH (08:44)
[2019-01-21] MEDS: RIVASTIGMINE TARTRATE 1.5 MG CAP PO SCH (08:45)
[2019-01-21 09:05] LABS: Basophils # (auto) 0.02 K/uL (0-0.2); Basophils % (auto) 0.3 %; Eosinophils # (auto) 0.15 K/uL (0-0.5); Eosinophils % (auto) 2.4 %; Hemoglobin 10.6 g/dL (12.0-16.0); Immature Granulocytes # (auto) 0.01 K/uL (0.00-0.02); Immature Granulocytes % (auto) 0.2 %; Lymphocytes # (auto) 1.65 K/uL (1.2-3.4); Mean Corpuscular Hgb Conc 33.1 g/dL (32-36); Mean Corpuscular Volume 88.4 fL (80-100); Mean Platelet Volume 10.6 fL (7.4-10.4); Monocytes # (auto) 0.59 K/uL (0.11-0.59); Monocytes % (auto) 9.3 %; Neutrophils # (auto) 3.93 K/uL (1.4-6.5); Neutrophils % (auto) 61.8 %; Platelet Count 156 K/uL (130-400); RDW Coefficient of Variation 13.2 % (11.5-14.5); RDW Standard Deviation 42.9 fL (36.4-46.3); Red Blood Count 3.62 M/uL (4.2-5.4); White Blood Count 6.35 K/uL (4.8-10.8)
[2019-01-21 09:42] LABS: Albumin Level 3.1 gm/dl (3.4-5.0); BUN Creatinine Ratio 30.8 (10-20); Calcium 9.2 mg/dl (8.5-10.1); Creatinine Clr Calc Pharmacy 38.8 ml/min; Est GFR (African American) 60.8; Est GFR (Non-African American) 52.4
[2019-01-21 09:45] LABS: Bilirubin,Total 0.5 mg/dl (0.2-1); Globulin 3.1 gm/dl (2.5-4.0); Total Protein 6.2 gm/dl (6.4-8.2)
[2019-01-21] MEDS ORDERED: TRAMADOL HCL 50 MG TABLET PO PRN (10:18)
[2019-01-21] MEDS: ACETAMINOPHEN 325 MG TAB PO PRN ×2 (10:59→15:42)
--- NOTE | 2019-01-21 11:24 | Hospitalist Progress Note ---
Date of Service January 21, 2019 Assessment & Plan (1) UTI (urinary tract infection): UTI present on admission without sepsis Latasha glabrata grew up on cultures obtained on 01/12 Fungal buds are seen in current urine analysis, awaiting culture Follow-up blood cultures procalcitonin is less than 0.05 Appreciate infectious diseases recommendation; amphotericin B bladder irrigation for 5 days for Latasha glabrata urinary tract infection. Today is day 3/ Appreciate psychiatry recommendations to give patient risperidone 0.5 and continue with her 0.25 does 3 times daily, continue with clonazepam 0.5 p.o. nightly. Continue with clonazepam 0.25 mg p.o. daily as needed. Increased to twice daily as needed. Based on long discussion with daughter and son, appears to be at baseline (2) Constipation: Last bowel movement was 01/18 Ordered bisacodyl suppository Add Senokot docusate to MiraLAX (3) Dementia: Appears to be as baseline as per 5 (4) Hyperlipidemia: Continue atorvastatin 10 mg p.o. every morning (5) Chronic diastolic (congestive) heart failure: Continue clopidogrel 75 mg p.o. every morning (6) Back pain, chronic: Tylenol/Ultram/Voltaren gel, she appears to be comfortable at this point Subjective Patient is nonverbal but had expressed discomfort with her lower back pain and knee pains Spoke with her daughter, who stated that she takes Voltaren gel on the back and on the knees at home. Nursing staff had patient had not bowel movement in 3 days Review of Systems Review of Systems: Unobtainable due to patient medical condition Physical Exam Physical Exam: Physical examination General frail elderly female in mild distress HEENT: Atraumatic , normocephalic /no jaundice /no pallor /anicteric /no dry mucous membrane /normal external ear inspection Neck: Supple /no swelling /central trach Heart: S1/S2 normal/regular rate and rhythm/no gallop /no rub /no murmur Lungs: Clear to auscultation bilaterally/normal chest with expansion/no rhonchi/no rales/no wheezing/no use of accessory muscles of respiration Abdomen: Soft/nontender/no guarding/no rebound/no organomegaly/no pulsatile mass Musculoskeletal: No swelling/no edema/no tenderness/normal range of motion Neuro exam: Awake nonverbal to me but moves all extremities, was able to tell the nurse when she asked her if she is in pain she is was able to say yes this morning Psychiatric evaluation unable to very Skin: No rash on exposed skin area/no erythema Extremity: Normal pulse/no pitting edema/no clubbing or cyanosis Results & Data Vital Signs (Past 12 Hours) Vital Signs Temp Pulse Pulse Resp BP Pulse Ox 01/21/19 07:41 57 L 01/21/19 07:37 36.6 C 63 18 129/79 97 01/21/19 03:02 36.4 C L 67 18 158/77 H 97 01/21/19 00:00 72 PG Care Time/CCT Total # of Minutes Spent Total Time Spent with Patient: Total time spent is greater than 50% in coordination of care (as documented) at patient's floor/unit and/or counseling patient: (1) Constipation Constipation type: unspecified constipation type Qualified Code(s): K59.00 - Constipation, unspecified (2) Dementia Dementia behavioral disturbance: without behavioral disturbance Dementia type: unspecified type Qualified Code(s): F03.90 - Unspecified dementia without behavioral disturbance (3) Hyperlipidemia Hyperlipidemia type: mixed hyperlipidemia Qualified Code(s): E78.2 - Mixed hyperlipidemia
[2019-01-21] MEDS ORDERED: BISACODYL 10 MG SUPP PR PRN (11:30)
[2019-01-21] MEDS ORDERED: POLYETHYLENE (MIRALAX) 17 GM PACK PO SCH (11:30)
[2019-01-21] MEDS: DICLOFENAC SOD 1% GEL 100 GM TUBE EXT SCH ×2 (13:15→21:27)
[2019-01-21] MEDS: DOCUSATE SODIUM/SENNA 50/8.6MG TAB PO SCH ×2 (13:16→21:25)
[2019-01-21] MEDS: AMPHOTERICIN B 50 MG in WATER, STERILE 1,000 ML IR SCH (17:39)
[2019-01-21] MEDS ORDERED: clonazePAM 0.5 MG TAB PO ONE (17:45)
[2019-01-21] MEDS: CELECOXIB 100 MG CAP PO SCH (21:25)
[2019-01-21] MEDS: MIRABEGRON ER 25 MG TAB PO SCH (21:26)
[2019-01-21] MEDS: CHOLECALCIFEROL 1,000 UNITS TAB PO SCH (21:27)
[2019-01-21] MEDS: ENOXAPARIN INJ 40 MG/0.4 ML SYR SQ SCH (21:28)
[2019-01-22 07:58] LABS: Basophils # (auto) 0.03 K/uL (0-0.2); Basophils % (auto) 0.4 %; Eosinophils # (auto) 0.17 K/uL (0-0.5); Eosinophils % (auto) 2.5 %; Hematocrit (blood only) 34.2 % (37-47); Immature Granulocytes # (auto) 0.02 K/uL (0.00-0.02); Immature Granulocytes % (auto) 0.3 %; Lymphocytes % (auto) 24.7 %; Mean Corpuscular Hgb Conc 32.2 g/dL (32-36); Mean Corpuscular Volume 90.2 fL (80-100); Mean Platelet Volume 10.6 fL (7.4-10.4); Monocytes # (auto) 0.74 K/uL (0.11-0.59); Monocytes % (auto) 10.8 %; Neutrophils # (auto) 4.21 K/uL (1.4-6.5); Neutrophils % (auto) 61.3 %; Platelet Count 163 K/uL (130-400); RDW Coefficient of Variation 13.2 % (11.5-14.5); RDW Standard Deviation 43.6 fL (36.4-46.3); Red Blood Count 3.79 M/uL (4.2-5.4); White Blood Count 6.87 K/uL (4.8-10.8)
[2019-01-22 08:36] LABS: Albumin Level 3.1 gm/dl (3.4-5.0); BUN Creatinine Ratio 27.3 (10-20); Calcium 9.3 mg/dl (8.5-10.1); Creatinine Clr Calc Pharmacy 37.3 ml/min; Est GFR (African American) 57.9; Magnesium 2.1 mg/dl (1.8-2.4); Potassium 4.4 mmol/L (3.5-5.1)
[2019-01-22 08:39] LABS: Bilirubin,Total 0.4 mg/dl (0.2-1); Globulin 3.2 gm/dl (2.5-4.0); Total Protein 6.3 gm/dl (6.4-8.2)
[2019-01-22] MEDS: THIAMINE HCL 50 MG TABLET PO SCH (08:41)
[2019-01-22] MEDS: DICLOFENAC SOD 1% GEL 100 GM TUBE EXT SCH ×2 (08:42→21:00)
[2019-01-22] MEDS: DOCUSATE SODIUM/SENNA 50/8.6MG TAB PO SCH ×2 (08:42→20:50)
[2019-01-22] MEDS: risperiDONE 0.5 MG TABLET PO SCH ×3 (08:42→18:14)
[2019-01-22] MEDS: RIVASTIGMINE TARTRATE 1.5 MG CAP PO SCH (08:42)
[2019-01-22] MEDS: ATORVASTATIN 10 MG TAB PO SCH (08:42)
[2019-01-22] MEDS: METOPROLOL TARTRATE 25 MG TAB PO SCH (08:43)
[2019-01-22] MEDS: CLOPIDOGREL BISULFATE 75 MG TAB PO SCH (08:43)
[2019-01-22] MEDS: POLYETHYLENE (MIRALAX) 17 GM PACK PO SCH ×2 (08:44→20:52)
[2019-01-22] MEDS: ACETAMINOPHEN 325 MG TAB PO PRN ×2 (10:13→14:25)
--- NOTE | 2019-01-22 12:00 | Hospitalist Progress Note ---
Date of Service January 22, 2019 Assessment & Plan (1) UTI (urinary tract infection): UTI present on admission without sepsis Latasha glabrata grew up on cultures obtained on 01/12 Fungal buds are seen in current urine analysis, awaiting culture Follow-up blood cultures procalcitonin is less than 0.05 Appreciate infectious diseases recommendation; amphotericin B bladder irrigation for 5 days for Latasha glabrata urinary tract infection. Today is day 4/5 On 6 PM today the fifth bag will be started for irrigation and it will and by 6 PM tomorrow, then patient will be ready for discharge. (2) Constipation: Last bowel movement was 01/18 Ordered bisacodyl suppository Add Senokot docusate to MiraLAX (3) Dementia: Appears to be as baseline as per her family Appreciate psychiatry recommendations to give patient risperidone 0.5 and continue with her 0.25 does 3 times daily, continue with clonazepam 0.5 p.o. nightly. Continue with clonazepam 0.25 mg p.o. daily as needed. Increased to twice daily as needed. Ordered Klonopin to be given between 5 and 530 as per family request (4) Hyperlipidemia: Continue atorvastatin 10 mg p.o. every morning (5) Chronic diastolic (congestive) heart failure: Continue clopidogrel 75 mg p.o. every morning (6) Back pain, chronic: Tylenol/Ultram/Voltaren gel, she appears to be comfortable at this point Subjective 83 years old female with a past medical history of chronic constipation, CVA, severe dementia, patient complained at home to her family from lower abdominal pain UA and urine culture grew Latasha glabrata she was brought to the ED for further evaluation management, she was admitted to the hospital urine culture has more than 100,000 Latasha glabrata and 100,000 lactobacillus, infectious disease consult appreciated recommended bladder irrigation with amphotericin B x5-day Review of Systems Review of Systems: Unobtainable due to patient dementia Physical Exam Physical Exam: General frail elderly female, not in any acute distress HEENT: Atraumatic , normocephalic /no jaundice /no pallor /anicteric /no dry mucous membrane /normal external ear inspection Neck: Supple /no swelling /central trach Heart: S1/S2 normal/regular rate and rhythm/no gallop /no rub /no murmur Lungs: Clear to auscultation bilaterally/normal chest with expansion/no rhonchi/no rales/no wheezing/no use of accessory muscles of respiration Abdomen: Soft/nontender/no guarding/no rebound/no organomegaly/no pulsatile mass Musculoskeletal: No swelling/no edema/no tenderness/normal range of motion Neuro exam: Awake nonverbal to me but moves all extremities, Psychiatric evaluation unable to very Skin: No rash on exposed skin area/no erythema Extremity: Normal pulse/no pitting edema/no clubbing or cyanosis Results & Data Vital Signs (Past 12 Hours) Vital Signs Temp Pulse Pulse Resp BP Pulse Ox 01/22/19 08:02 64 01/22/19 06:58 36.6 C 72 20 115/75 97 01/22/19 04:00 36.2 C L 62 20 118/72 99 PG Care Time/CCT Total # of Minutes Spent Total Time Spent with Patient: Total time spent is greater than 50% in coordination of care (as documented) at patient's floor/unit and/or counseling patient: (1) Constipation Constipation type: unspecified constipation type Qualified Code(s): K59.00 - Constipation, unspecified (2) Dementia Dementia behavioral disturbance: without behavioral disturbance Dementia type: unspecified type Qualified Code(s): F03.90 - Unspecified dementia without behavioral disturbance (3) Hyperlipidemia Hyperlipidemia type: mixed hyperlipidemia Qualified Code(s): E78.2 - Mixed hyperlipidemia
[2019-01-22] MEDS: clonazePAM 0.5 MG TAB PO PRN (14:08)
[2019-01-22] MEDS ORDERED: clonazePAM 0.5 MG TAB PO ONE (17:00)
[2019-01-22] MEDS: AMPHOTERICIN B 50 MG in WATER, STERILE 1,000 ML IR SCH (18:14)
[2019-01-22] MEDS: MIRABEGRON ER 25 MG TAB PO SCH (20:49)
[2019-01-22] MEDS: CELECOXIB 100 MG CAP PO SCH (20:52)
[2019-01-22] MEDS: ENOXAPARIN INJ 40 MG/0.4 ML SYR SQ SCH (21:00)
[2019-01-22] MEDS: CHOLECALCIFEROL 1,000 UNITS TAB PO SCH (21:00)
[2019-01-23] MEDS: DOCUSATE SODIUM/SENNA 50/8.6MG TAB PO SCH (08:02)
[2019-01-23] MEDS: ATORVASTATIN 10 MG TAB PO SCH (08:02)
[2019-01-23] MEDS: risperiDONE 0.5 MG TABLET PO SCH ×3 (08:02→17:26)
[2019-01-23] MEDS: POLYETHYLENE (MIRALAX) 17 GM PACK PO SCH (08:03)
[2019-01-23] MEDS: THIAMINE HCL 50 MG TABLET PO SCH (08:03)
[2019-01-23] MEDS: METOPROLOL TARTRATE 25 MG TAB PO SCH (08:03)
[2019-01-23] MEDS: CLOPIDOGREL BISULFATE 75 MG TAB PO SCH (08:03)
[2019-01-23] MEDS: RIVASTIGMINE TARTRATE 1.5 MG CAP PO SCH (08:03)
[2019-01-23 08:04] LABS: Basophils # (auto) 0.02 K/uL (0-0.2); Basophils % (auto) 0.3 %; Eosinophils % (auto) 2.8 %; Hematocrit (blood only) 33.1 % (37-47); Hemoglobin 11.1 g/dL (12.0-16.0); Immature Granulocytes # (auto) 0.01 K/uL (0.00-0.02); Immature Granulocytes % (auto) 0.1 %; Lymphocytes # (auto) 1.99 K/uL (1.2-3.4); Lymphocytes % (auto) 27.8 %; Mean Corpuscular Hgb Conc 33.5 g/dL (32-36); Monocytes # (auto) 0.77 K/uL (0.11-0.59); Monocytes % (auto) 10.8 %; Neutrophils # (auto) 4.16 K/uL (1.4-6.5); Neutrophils % (auto) 58.2 %; Platelet Count 173 K/uL (130-400); RDW Coefficient of Variation 13.3 % (11.5-14.5); RDW Standard Deviation 43.5 fL (36.4-46.3); Red Blood Count 3.72 M/uL (4.2-5.4); White Blood Count 7.15 K/uL (4.8-10.8)
[2019-01-23] MEDS: DICLOFENAC SOD 1% GEL 100 GM TUBE EXT SCH (08:04)
[2019-01-23 09:21] LABS: Albumin Level 3.3 gm/dl (3.4-5.0); BUN Creatinine Ratio 30.4 (10-20); Calcium 9.1 mg/dl (8.5-10.1); Creatinine Clr Calc Pharmacy 36.2 ml/min; Est GFR (Non-African American) 48.3; Magnesium 2.1 mg/dl (1.8-2.4); Potassium 4.3 mmol/L (3.5-5.1)
[2019-01-23 09:24] LABS: Bilirubin,Total 0.6 mg/dl (0.2-1); Globulin 3.3 gm/dl (2.5-4.0); Total Protein 6.6 gm/dl (6.4-8.2)
[2019-01-23] MEDS: ACETAMINOPHEN 325 MG TAB PO PRN (13:06)
[2019-01-23] MEDS ORDERED: clonazePAM 0.5 MG TAB PO ONE (17:00)
[2019-01-24] MEDS ORDERED: clonazePAM 0.5 MG TAB PO ONE (17:00)
== END 2019-01-23 20:44 | disposition home or self-care (01) | DRG 690 ==
LOC: SUATTDRO 10:39 → 3W 10:39 → 2W 13:15

== ENCOUNTER 2019-10-04 18:59 | Inpatient (IN) ==
[~2019-10-04 18:59] MED LIST changes: -ACET-1311 PO; -ASPI81TA28 PO; -ATOR10TA82 PO; -CHOL20007 PO; -CLB100 PO; -CLON0.5T3 PO; -DICL1GEL12 TOP; -DOCU-94 PO; +ETOMIDATE 2 MG/ML 20 ML VIAL IV ONE; -LCTX PO; -LDDP5 TOP; -LORA-741 PO; -METO25TA56 PO; -POLY335019 PO; -PRAZ2CAP3 PO; -RISP0.5T4 PO; -RIVA1.5C6 PO; +ROCURONIUM BROMIDE 10 MG/ML 5 ML VIAL IV ONE; -SENN-61 PO; -TRAZ50TA35 PO
[2019-10-04] MEDS ORDERED: ACETAMINOPHEN 1,000 MG/100 ML VIAL IV STA (19:34)
--- NOTE | 2019-10-04 19:43 | Emergency Department Note ---
Impression & Plan Subcapital fracture of left femur, Dementia, Hypertension ED Provider Note NAME: RADHA FARRELL AGE: 83 SEX: F ARRIVES VIA: Walk-In INFORMANT: Patient, ED PROVIDER(S): Douglas Wilburn MD CHIEF COMPLAINT: Hip Fracture PLAN: Disposition: Admit MEDICAL DECISION MAKING: The patient is an 83-year-old woman with a past medical history of CAD status post CABG, aortic stenosis status post valve replacement, hypertension, history of stroke, dementisa, and recent admission to [facility] for status epilepticus believed to be provoked from a urinary tract infection and history of prior [facility] emergency [facility] for concern for left leg swelling which prompted an outpatient x-ray showing a subacute left subcapital hip fracture. The family report that the patient was discharged yesterday evening and they basically got home and help the patient into bed and where she slept soundly until this morning but this morning noticed her leg was more swollen and that she was not using it as much as her right. They deny fevers, cough, vomiting, diarrhea, urinary symptoms. On arrival the patient is nonverbal at her baseline per the family and appears uncomfortable though the family report that she typically is like this whether she has pain or not. The left hip demonstrates slight deformity and shortening. Externally rotated. Distal PMS intact. Case was discussed with Dr. Clifton, orthopedics on-call who will be available for inpatient team consultation. Case was discussed with Dr. Santos, [facility] hospitalist, who will evaluate the patient for admission. WBC and platelets wnl. H/H similar to prior range of values. Chemistry without acidosis. Electrolytes unremarkable. UA negative. EKG with LBBB similar to prior. CXR negative for acute process. Triage Nursing notes reviewed and agree them. Additional history obtained from family Prior medical records reviewed Vital Signs: reviewed and remarkable for hypertension. Differential diagnosis: Fracture, subluxation, dislocation, contusion, ligamentous injury, neurovascular, compartment syndrome, rhabdomyolysis, as well as other pathologies. ER treatment provided: See below. Diagnostics interpreted by me: ECG: NSR with sinus arrhythmia, 70 bpm, LAD, LBBB, No Sgarbossa critieria. Cardiac Monitoring: An order for continuous cardiac monitoring was placed and demonstrated, 70 bpm, no ectopy. Laboratory studies: See below Imaging studies: SINGLE VIEW CHEST CLINICAL HISTORY: Hip fracture. FINDINGS: An AP, portable, upright chest radiograph is compared to chest x-ray and chest CT dated 09/25/2019. The examination is degraded by portable technique and patient rotation. The patient is status post midline sternotomy and cardiac valve surgery. The heart is enlarged noting atherosclerotic calcification of the thoracic aorta. The pulmonary vasculature is noncongested. Chronic interstitial thickening is similar to previous. There is no airspace consolidation or large pleural effusion. Scarring/atelectasis is noted at the left lung base. No pneumothorax is seen. The skeletal structures are osteopenic. There is chronic posttraumatic deformity of the left proximal humerus IMPRESSION: Cardiomegaly with no acute cardiopulmonary abnormality. Consultation(s): Dr. Santos, [facility] hospitalist Dr. Clifton, Orthopedic surgery on-call. HPI: The patient is an 83-year-old woman with a past medical history of CAD status post CABG, aortic stenosis status post valve replacement, hypertension, history of stroke, dementisa, and recent admission to [facility] for status epilepticus believed to be provoked from a urinary tract infection and history of [place] [facility] [place] for concern for left leg swelling which prompted an outpatient x-ray showing a subacute left subcapital hip fracture. The family report that the patient was discharged yesterday evening and they basically got home and help the patient into bed and where she slept soundly until this morning but this morning noticed her leg was more swollen and that she was not using it as much as her right. They deny fevers, cough, vomiting, diarrhea, urinary symptoms. ROS: See above HPI for pertinent positives & negatives. A total of 10 systems r eviewed and were otherwise negative. PAST MEDICAL HISTORY:See Below PAST SURGICAL HISTORY:See Below FAMILY HISTORY:See Below SOCIAL HISTORY:See Below HOME MEDICATIONS:See Below ALLERGIES:See Below VITALS:See Below PHYSICAL EXAMINATION: GENERAL: Awake, alert, uncomfortable-appearing, in no distress HENT: Normocephalic, atraumatic. Oropharynx with dry mucous membranes and otherwise unremarkable. EYES: Normal conjunctiva. Sclera non-icteric. NECK: Supple. No nuchal rigidity. FROM. No JVD. RESPIRATORY: Clear to auscultation. CARDIAC: Regular rate, normal rhythm. Extremities warm and well perfused. Pulses equal. ABDOMEN: Soft, non-distended. No tenderness to palpation. No rebound or guarding. No masses. RECTAL: Deferred. MUSCULOSKELETAL: Chest examination reveals no tenderness. The back is symmetrical on inspection without obvious abnormality. There is no CVA tenderness to palpation. Left hip demonstrates slight deformity and shortening. Externally rotated. Distal PMS intact. LOWER EXTREMITIES: Calves are equal size bilaterally and non-tender. No edema. No discoloration. NEURO: Normal sensorium. No sensory or motor deficits noted. No verbal at baseline. SKIN: No rash or jaundice noted. Douglas Wilburn MD Past Med/Surg History Medical History Anxiety (Chronic) Aortic stenosis (Chronic) Chest pain (Inactive) Diabetes (Resolved) Heart disease (Resolved) Hypertension (Chronic) Stroke (Resolved) UTI (urinary tract infection) Surgical History H/O aortic valve replacement History of colonoscopy History of cystoscopy with Cystolitholapaxy History of endoscopic gastrointestinal surgery S/P CABG (coronary artery bypass graft) S/P cataract surgery S/P tubal ligation Family History Father Myocardial infarction Mother Myocardial infarction Diabetes Stroke Rheumatoid arthritis Family/Other Cancer Other Hypertension Social History Preferred Language: [place] Communication Ability: Impaired Communication Ability Comment: hx cva nonverbal Etcher Apprentice Required: No Beliefs That Will Affect Care: None marital status: / Current Living Situation: Family Current Living Situation Comment: w/ 2 dtrs current occupational status: retired Feels Safe at Home: Yes Smoking Status: Never smoker Second Hand Exposure: No ; Hx Alcohol Use: No Hx Substance Use: No Seatbelt Use: always Allergies Allergies Allergy/AdvReac Type Severity Reaction Status Date / Time enalapril Allergy Intermediate Cough Verified 09/20/19 10:28 escitalopram AdvReac Intermediate Hallucinati Verified 09/20/19 10:28 ons Home Meds Home Medications Medication Instructions Recorded Confirmed cholecalciferol (vitamin D3) 2,000 units PO HS 04/04/18 10/04/19 [Vitamin D3] thiamine HCl (vitamin B1) [Vitamin 250 mg PO QAM 10/21/18 10/04/19 B-1] acetaminophen 325 mg capsule 325 - 650 mg PO BID cap 01/30/19 10/04/19 atorvastatin [Lipitor] 10 mg PO QAM 06/29/19 10/04/19 celecoxib [Celebrex] 100 mg PO HS 06/29/19 10/04/19 methenamine hippurate [Hiprex] 1 gm PO HS 06/29/19 10/04/19 mirabegron [Myrbetriq] 50 mg PO DAILY 06/29/19 10/04/19 cyanocobalamin (vitamin B-12) 5,000 mcg PO DAILY 07/20/19 10/04/19 [Vitamin B-12] folic acid 0.8 mg PO DAILY 07/20/19 10/04/19 polyethylene glycol 3350 [Miralax] 17 g PO BID 09/19/19 10/04/19 Saccharomyces boulardii 250 mg PO DAILY 10/04/19 10/04/19 amoxicillin-pot clavulanate 1 tab PO BID 10/04/19 10/04/19 docusate sodium 100 mg PO DAILY 10/04/19 10/04/19 levetiracetam 1,000 mg PO BID 10/04/19 10/04/19 lorazepam 0.5 mg PO DAILY PRN 10/04/19 10/04/19 nystatin 1 applic TOPICAL TID 10/04/19 10/04/19 risperidone 0.5 mg PO TID 10/04/19 10/04/19 triamcinolone acetonide 1 applic TOPICAL BID 10/04/19 10/04/19 Previous Rx's Medication Instructions Recorded diclofenac sodium 1 % topical gel 2 gm TOP QID PRN #100 gm 08/07/19 metoprolol tartrate 25 mg tablet 25 mg PO QAM #90 tab 08/17/19 Results & Data (ED) Vital Signs Vital Signs - 24 hr 10/04/19 19:21 10/04/19 20:30 10/04/19 20:54 Temperature 36.9 C Temperature Source Oral Pulse Rate 71 55 L 69 Pulse Rate from SpO2 Sensor 55 L 69 Respiratory Rate 24 12 14 Respiratory Effort / Characteristics Non-Labored Respiratory Depth Normal Blood Pressure 155/95 H 190/78 H Blood Pressure Mean 115 128 Blood Pressure Position Sitting Pulse Oximetry 96 95 97 Oxygen Delivery Method Room Air Sepsis Recent Fever Within 48 Hours No Sepsis Action Taken by Nursing No Action Required 10/04/19 21:00 10/04/19 21:10 10/04/19 21:20 Temperature Temperature Source Pulse Rate 67 70 59 L Pulse Rate from SpO2 Sensor 65 68 58 L Respiratory Rate 15 17 14 Respiratory Effort / Characteristics Respiratory Depth Blood Pressure 187/84 H Blood Pressure Mean 126 Blood Pressure Position Pulse Oximetry 96 96 95 Oxygen Delivery Method Sepsis Recent Fever Within 48 Hours Sepsis Action Taken by Nursing 10/04/19 21:30 10/04/19 21:40 Temperature Temperature Source Pulse Rate 63 68 Pulse Rate from SpO2 Sensor 62 Respiratory Rate 16 12 Respiratory Effort / Characteristics Respiratory Depth Blood Pressure 180/93 H Blood Pressure Mean 142 Blood Pressure Position Pulse Oximetry 98 Oxygen Delivery Method Sepsis Recent Fever Within 48 Hours Sepsis Action Taken by Nursing Laboratory Data Attestation: I reviewed the patient's lab results. Result diagrams: 10/04/19 19:46 10/04/19 19:46 Lab Results 10/04/19 10/04/19 10/04/19 Range/Units 19:46 19:46 19:46 WBC 8.99 (4.8-10.8) K/uL RBC 3.74 L (4.2-5.4) M/uL Hgb 11.3 L (12.0-16.0) g/dL Hct 35.0 L (37-47) % MCV 93.6 (80-100) fL MCH 30.2 (25-34) pg MCHC 32.3 (32-36) g/dL RDW Std Deviation 45.9 (36.4-46.3) fL RDW Coeff of [place] 13.4 (11.5-14.5) % Plt Count 290 (130-400) K/uL MPV 10.1 (7.4-10.4) fL Immature Gran % (Auto) 0.7 % Neut % (Auto) 72.3 % Lymph % (Auto) 17.7 % [place] % (Auto) 7.6 % Eos % (Auto) 1.6 % Baso % (Auto) 0.1 % Immature Gran # (Auto) 0.06 H (0.00-0.02) K/uL Neut # (Auto) 6.51 H (1.4-6.5) K/uL Lymph # (Auto) 1.59 (1.2-3.4) K/uL [place] # (Auto) 0.68 H (0.11-0.59) K/uL Eos # (Auto) 0.14 (0-0.5) K/uL Baso # (Auto) 0.01 (0-0.2) K/uL PT 11.0 (9.0-12.0) Seconds INR 1.0 (0.9-1.1) APTT 25.1 (21.0-31.0) Seconds PTT Ratio 0.9 Sodium (136-145) mmol/L Potassium (3.5-5.1) mmol/L Chloride (98-107) mmol/L Carbon Dioxide (21-32) mmol/L Anion Gap (3-11) BUN (7-18) mg/dl Creatinine (0.6-1.2) mg/dl Est Cr Clr Drug Dosing ml/min Est GFR ( Amer) Est GFR (Non-Af Amer) BUN/Creatinine Ratio (10-20) Glucose (70-99) mg/dl Calcium (8.5-10.1) mg/dl Urine Color Urine Appearance (Clear) Urine pH (4.5-7.5) Ur Specific [place] (1.000-1.030) Urine Protein (Negative) Urine Glucose (UA) (Negative) Urine Ketones (Negative) Urine Blood (Negative) Urine Nitrite (Negative) Urine Bilirubin (Negative) Urine Urobilinogen (Negative) Ur Leukocyte Esterase (Negative) Urine WBC (Auto) (0-5) /hpf Urine RBC (Auto) (0-4) /hpf U Hyaline Cast (Auto) (0-5) /lpf U Epithel Cells (Auto) (0-5) /lpf Urine Bacteria (Auto) (Negative) Blood Type A Positive Antibody Screen NEGATIVE 10/04/19 10/04/19 Range/Units 19:46 20:22 WBC (4.8-10.8) K/uL RBC (4.2-5.4) M/uL Hgb (12.0-16.0) g/dL Hct (37-47) % MCV (80-100) fL MCH (25-34) pg MCHC (32-36) g/dL RDW Std Deviation (36.4-46.3) fL RDW Coeff of [place] (11.5-14.5) % Plt Count (130-400) K/uL MPV (7.4-10.4) fL Immature Gran % (Auto) % Neut % (Auto) % Lymph % (Auto) % [place] % (Auto) % Eos % (Auto) % Baso % (Auto) % Immature Gran # (Auto) (0.00-0.02) K/uL Neut # (Auto) (1.4-6.5) K/uL Lymph # (Auto) (1.2-3.4) K/uL [place] # (Auto) (0.11-0.59) K/uL Eos # (Auto) (0-0.5) K/uL Baso # (Auto) (0-0.2) K/uL PT (9.0-12.0) Seconds INR (0.9-1.1) APTT (21.0-31.0) Seconds PTT Ratio Sodium 143 (136-145) mmol/L Potassium 5.4 H (3.5-5.1) mmol/L Chloride 108 H (98-107) mmol/L Carbon Dioxide 27 (21-32) mmol/L Anion Gap 9.0 (3-11) BUN 22 H (7-18) mg/dl Creatinine 0.96 (0.6-1.2) mg/dl Est Cr Clr Drug Dosing 39.0 ml/min Est GFR ( Amer) 63.8 Est GFR (Non-Af Amer) 55.1 BUN/Creatinine Ratio 23.0 H (10-20) Glucose 131 H (70-99) mg/dl Calcium 9.8 (8.5-10.1) mg/dl Urine Color Yellow Urine Appearance Clear (Clear) Urine pH 6.5 (4.5-7.5) Ur Specific [place] 1.018 (1.000-1.030) Urine Protein Trace H (Negative) Urine Glucose (UA) Negative (Negative) Urine Ketones Negative (Negative) Urine Blood Negative (Negative) Urine Nitrite Negative (Negative) Urine Bilirubin Negative (Negative) Urine Urobilinogen Negative (Negative) Ur Leukocyte Esterase Negative (Negative) Urine WBC (Auto) 1-5 (0-5) /hpf Urine RBC (Auto) 0-4 (0-4) /hpf U Hyaline Cast (Auto) 1-5 (0-5) /lpf U Epithel Cells (Auto) >30 H (0-5) /lpf Urine Bacteria (Auto) Negative (Negative) Blood Type Antibody Screen Administered Medications Morphine Sulfate (Morphine Sulfate) 2 mg IV Q1H PRN PRN Reason: Moderate Pain (Rating 3,4,5,6) Stop: 10/18/19 19:32 Last Admin: 10/04/19 23:10 Dose: 2 mg Documented by: [id number] Admin: 10/04/19 20:03 Dose: 2 mg Documented by: [id number] Discontinued Medications Sodium Chloride (Nss 1000ml) 1,000 mls @ 150 mls/hr IV .[id number] SURJIT Stop: 10/05/19 02:24 Last Infusion: 10/05/19 02:31 Dose: 0 mls/hr Documented by: [id number] Admin: 10/04/19 20:06 Dose: 150 mls/hr Documented by: [id number] Acetaminophen (Ofirmev) 1,000 mg in 100 mls @ 400 mls/hr IV NOW STA Stop: 10/04/19 19:48 Last Infusion: 10/04/19 20:44 Dose: 0 mls/hr Documented by: [id number] Admin: 10/04/19 20:05 Dose: 400 mls/hr Documented by: [id number] Blood Pressure Blood Pressure Findings: Elevated blood pressure Blood Pressure Disposition: elevated BP felt to be situational Discharge Plan Visit Data *Final* Discharge Date/Time: 10/04/19 22:42 Chief Complaint: Leg Injury/Pain Stated Complaint: DISPLACED FEMUR ED Provider: Douglas Wilburn Discharge Problem: Subcapital fracture of left femur, Dementia, Hypertension Patient Disposition: Admitted As Inpatient Discharge Instructions Interventions: ED Discharge Assessment Last Done: 10/04/19 22:42 Discharge Problem: Subcapital fracture of left femur Qualifiers: Encounter type: initial encounter Fracture type: closed Qualified Code(s): S72.012A - Unspecified intracapsular fracture of left femur, initial encounter for closed fracture Dementia Qualifiers: Dementia type: unspecified type Dementia behavioral disturbance: without behavioral disturbance Qualified Code(s): F03.90 - Unspecified dementia without behavioral disturbance
[2019-10-04] MEDS ORDERED: SODIUM CHLORIDE 0.9% 1000ML 1,000 ML IV SCH (19:45)
--- NOTE | 2019-10-04 19:57 | XRay Report ---
SINGLE VIEW CHEST CLINICAL HISTORY: Hip fracture. FINDINGS: An AP, portable, upright chest radiograph is compared to chest x-ray and chest CT dated 09/14. The examination is degraded by portable technique and patient rotation. The patient is status post midline sternotomy and cardiac valve surgery. The heart is enlarged noting atherosclerotic calc ification of the thoracic aorta. The pulmonary vasculature is noncongested. Chronic interstitial thic kening is similar to previous. There is no airspace consolidation or large pleural effusion. Scarring /atelectasis is noted at the left lung base. No pneumothorax is seen. The skeletal structures are ost eopenic. There is chronic posttraumatic deformity of the left proximal humerus IMPRESSION: Cardiomegaly with no acute cardiopulmonary abnormality. ACT 112: Negative or not required by law. Electronically signed by: Bladimir Green M.D. 10/04/2019 7:55 PM
[2019-10-04] MEDS: MoRPHine SULFATE 2 MG/ML CARP IV PRN ×2 (20:03→23:10)
[2019-10-04 20:21] LABS: Basophils # (auto) 0.01 K/uL (0-0.2); Basophils % (auto) 0.1 %; Eosinophils # (auto) 0.14 K/uL (0-0.5); Eosinophils % (auto) 1.6 %; Hemoglobin 11.3 g/dL (12.0-16.0); Immature Granulocytes # (auto) 0.06 K/uL (0.00-0.02); Immature Granulocytes % (auto) 0.7 %; Lymphocytes # (auto) 1.59 K/uL (1.2-3.4); Lymphocytes % (auto) 17.7 %; Mean Corpuscular Hemoglobin 30.2 pg (25-34); Mean Corpuscular Hgb Conc 32.3 g/dL (32-36); Mean Corpuscular Volume 93.6 fL (80-100); Mean Platelet Volume 10.1 fL (7.4-10.4); Monocytes # (auto) 0.68 K/uL (0.11-0.59); Monocytes % (auto) 7.6 %; Neutrophils # (auto) 6.51 K/uL (1.4-6.5); Neutrophils % (auto) 72.3 %; Platelet Count 290 K/uL (130-400); RDW Coefficient of Variation 13.4 % (11.5-14.5); RDW Standard Deviation 45.9 fL (36.4-46.3); Red Blood Count 3.74 M/uL (4.2-5.4); White Blood Count 8.99 K/uL (4.8-10.8)
[2019-10-04 20:30] LABS: Calcium 9.8 mg/dl (8.5-10.1); Est GFR (African American) 63.8; Est GFR (Non-African American) 55.1; Potassium 5.4 mmol/L (3.5-5.1)
[2019-10-04 20:31] LABS: Appearance Urine Clear (Clear); Bacteria Urine Automated Negative (Negative); Bilirubin Urine Negative (Negative); Blood Urine Negative (Negative); Color Urine Yellow; Epithelial Cell Urine Auto >30 /lpf (0-5); Glucose Urine UA Negative (Negative); Ketones Urine Negative (Negative); Leukocyte Esterase Urine Negative (Negative); Nitrite Urine Negative (Negative); Protein Urine Trace (Negative); RBC Urine Automated 0-4 /hpf (0-4); Specific Gravity Urine 1.018 (1.000-1.030); Urobilinogen Urine Negative (Negative); pH Urine 6.5 (4.5-7.5)
[2019-10-04 21:36] LABS: Partial Thromboplastin Ratio 0.9; Partial Thromboplastin Time 25.1 Seconds (21.0-31.0)
--- NOTE | 2019-10-04 21:47 | History & Physical Report ---
Date of Service October 04, 2019 Assessment & Plan (1) Subcapital fracture of left femur: Mikaela Easley is a 83y/o F w/ recent medical history of status epilepticus requiring intubation and sedation; who presented to the ED following family noticing that her left leg had swelling and she was not moving it as much Subcapital L hip fracture: - Hip/Pelvis XR demonstrated distracted and subacute appearing subcapital fracture of the left femur - uncertain timeline of when fracture occurred or exact mechanism, without recent history of fall or signs of local ecchymosis would presume that this is 2/2 seizure - Orthopaedic surgery consulted Status epilepticus: - recently discharged from [facility] following prolonged seizure - continue home Keppra 1000mg BID CVA: - history of several CVAs - patient non-verbal at baseline Dementia: - patient non-verbal at baseline - functional status declined significantly over the last several years according to family Diet: NPO due to sedation DVT ppx: defer Code status: DNR/DNI for cardiac arrest, if return to status epilepticus can be intubated (2) Status epilepticus: (3) CVA (cerebral vascular accident): (4) Dementia: (5) Chronic diastolic (congestive) heart failure: History of Present Illness Primary Care Provider: Aurora Estrada MD Mikaela Easley is a 83y/o F w/ recent medical history of status epilepticus requiring intubation and sedation; who presented to the ED following family noticing that her left leg had swelling and she was not moving it as much. Patient is non-verbal, so history provided by family in room, she had a recent admission to [facility] for status epilepticus, patient returned home yesterday and was weight-bearing for transfer with family at that time. However this morning they noted she was not moving her left leg as much and there was more swelling on that side, they called their PCP and this prompted an outpatient x-ray showing a left subcapital hip fracture. Allergies Allergy/AdvReac Type Severity Reaction Status Date / Time enalapril Allergy Intermediate Cough Verified 09/20/19 10:28 escitalopram AdvReac Intermediate Hallucinati Verified 09/20/19 10:28 ons Home Medications Home Medications Medication Instructions Recorded Confirmed Type cholecalciferol (vitamin D3) 2,000 units PO HS 04/04/18 10/04/19 History [Vitamin D3] thiamine HCl (vitamin B1) [Vitamin 250 mg PO QAM 10/21/18 10/04/19 History B-1] acetaminophen 325 mg capsule 325 - 650 mg PO BID cap 01/30/19 10/04/19 History atorvastatin [Lipitor] 10 mg PO QAM 06/29/19 10/04/19 History celecoxib [Celebrex] 100 mg PO HS 06/29/19 10/04/19 History methenamine hippurate [Hiprex] 1 gm PO HS 06/29/19 10/04/19 History mirabegron [Myrbetriq] 50 mg PO DAILY 06/29/19 10/04/19 History cyanocobalamin (vitamin B-12) 5,000 mcg PO DAILY 07/20/19 10/04/19 History [Vitamin B-12] folic acid 0.8 mg PO DAILY 07/20/19 10/04/19 History diclofenac sodium 1 % topical gel 2 gm TOP QID PRN #100 gm 08/07/19 10/04/19 Rx metoprolol tartrate 25 mg tablet 25 mg PO QAM #90 tab 08/17/19 10/04/19 Rx polyethylene glycol 3350 [Miralax] 17 g PO BID 09/19/19 10/04/19 History Saccharomyces boulardii 250 mg PO DAILY 10/04/19 10/04/19 History amoxicillin-pot clavulanate 1 tab PO BID 10/04/19 10/04/19 History docusate sodium 100 mg PO DAILY 10/04/19 10/04/19 History levetiracetam 1,000 mg PO BID 10/04/19 10/04/19 History lorazepam 0.5 mg PO DAILY PRN 10/04/19 10/04/19 History nystatin 1 applic TOPICAL TID 10/04/19 10/04/19 History risperidone 0.5 mg PO TID 10/04/19 10/04/19 History triamcinolone acetonide 1 applic TOPICAL BID 10/04/19 10/04/19 History Past Med/Surg History Medical History Anxiety (Chronic) Aortic stenosis (Chronic) Chest pain (Inactive) Diabetes (Resolved) Heart disease (Resolved) Hypertension (Chronic) Stroke (Resolved) UTI (urinary tract infection) Surgical History H/O aortic valve replacement History of colonoscopy History of cystoscopy with Cystolitholapaxy History of endoscopic gastrointestinal surgery S/P CABG (coronary artery bypass graft) S/P cataract surgery S/P tubal ligation Family History Father Myocardial infarction Mother Myocardial infarction Diabetes Stroke Rheumatoid arthritis Family/Other Cancer Other Hypertension Social History Preferred Language: Cape Verdean Communication Ability: Impaired Communication Ability Comment: hx cva nonverbal [employer] Required: No Beliefs That Will Affect Care: None marital status: / Current Living Situation: Family Current Living Situation Comment: w/ 2 dtrs current occupational status: retired Feels Safe at Home: Yes Smoking Status: Never smoker Second Hand Exposure: No ; Hx Alcohol Use: No Hx Substance Use: No Seatbelt Use: always Review of Systems Review of Systems: Unobtainable due to cognitive status Physical Exam Constitutional: WD/WN, vitals as above Eyes: PERRL, conjunctivae normal, anicteric sclerae ENMT: external ear and nose normal, oropharynx normal Neck: normal visual inspection Respiratory: normal respiratory effort, lungs clear to auscultation Cardiovascular: Rate/Rhythm: regular rate and regular rhythm Heart Sounds: normal S1, normal S2 and + murmur (systolic murmur over R sternal border); no gallop and no cardiac rub Extremities: + edema (L lower extremity) Gastrointestinal (Abdomen): normal bowel sounds, soft, nontender, no hepatosplenomegaly Musculoskeletal: Hip: no effusion, no skin erythema and no ecchymosis Knee: no deformity, no effusion, no skin erythema and no ecchymosis Skin: no rashes, warm and dry Neurologic: patellar DTR's 2+ bilat, sensation intact Psychiatric: Apperance: + disheveled Eye Contact: + poor eye contact Speech: + mute Lymphatic: no cervical or axillary lymphadenopathy Results & Data Results & Data ([facility]) Vital Signs (Past 12 Hours) Vital Signs Temp Pulse Resp BP Pulse Ox 10/04/19 21:20 59 L 14 95 10/04/19 21:10 70 17 96 10/04/19 21:00 67 15 187/84 H 96 10/04/19 20:54 69 14 97 10/04/19 20:30 55 L 12 190/78 H 95 10/04/19 19:21 36.9 C 71 24 155/95 H 96 Laboratory Results 10/04/19 10/04/19 10/04/19 Range/Units 20:22 19:46 19:46 WBC (4.8-10.8) K/uL RBC (4.2-5.4) M/uL Hgb (12.0-16.0) g/dL Hct (37-47) % MCV (80-100) fL MCH (25-34) pg MCHC (32-36) g/dL RDW Std Deviation (36.4-46.3) fL RDW Coeff of [place] (11.5-14.5) % Plt Count (130-400) K/uL MPV (7.4-10.4) fL Immature Gran % (Auto) % Neut % (Auto) % Lymph % (Auto) % Bureau % (Auto) % Eos % (Auto) % Baso % (Auto) % Immature Gran # (Auto) (0.00-0.02) K/uL Neut # (Auto) (1.4-6.5) K/uL Lymph # (Auto) (1.2-3.4) K/uL Bureau # (Auto) (0.11-0.59) K/uL Eos # (Auto) (0-0.5) K/uL Baso # (Auto) (0-0.2) K/uL PT 11.0 (9.0-12.0) Seconds INR 1.0 (0.9-1.1) APTT 25.1 (21.0-31.0) Seconds PTT Ratio 0.9 Sodium 143 (136-145) mmol/L Potassium 5.4 H (3.5-5.1) mmol/L Chloride 108 H (98-107) mmol/L Carbon Dioxide 27 (21-32) mmol/L Anion Gap 9.0 (3-11) BUN 22 H (7-18) mg/dl Creatinine 0.96 (0.6-1.2) mg/dl Est Cr Clr Drug Dosing 39.0 ml/min Est GFR ( Amer) 63.8 Est GFR (Non-Af Amer) 55.1 BUN/Creatinine Ratio 23.0 H (10-20) Glucose 131 H (70-99) mg/dl Calcium 9.8 (8.5-10.1) mg/dl Urine Color Yellow Urine Appearance Clear (Clear) Urine pH 6.5 (4.5-7.5) Ur Specific [place] 1.018 (1.000-1.030) Urine Protein Trace H (Negative) Urine Glucose (UA) Negative (Negative) Urine Ketones Negative (Negative) Urine Blood Negative (Negative) Urine Nitrite Negative (Negative) Urine Bilirubin Negative (Negative) Urine Urobilinogen Negative (Negative) Ur Leukocyte Esterase Negative (Negative) Urine WBC (Auto) 1-5 (0-5) /hpf Urine RBC (Auto) 0-4 (0-4) /hpf U Hyaline Cast (Auto) 1-5 (0-5) /lpf U Epithel Cells (Auto) >30 H (0-5) /lpf Urine Bacteria (Auto) Negative (Negative) Blood Type Antibody Screen 10/04/19 10/04/19 Range/Units 19:46 19:46 WBC 8.99 (4.8-10.8) K/uL RBC 3.74 L (4.2-5.4) M/uL Hgb 11.3 L (12.0-16.0) g/dL Hct 35.0 L (37-47) % MCV 93.6 (80-100) fL MCH 30.2 (25-34) pg MCHC 32.3 (32-36) g/dL RDW Std Deviation 45.9 (36.4-46.3) fL RDW Coeff of [place] 13.4 (11.5-14.5) % Plt Count 290 (130-400) K/uL MPV 10.1 (7.4-10.4) fL Immature Gran % (Auto) 0.7 % Neut % (Auto) 72.3 % Lymph % (Auto) 17.7 % Bureau % (Auto) 7.6 % Eos % (Auto) 1.6 % Baso % (Auto) 0.1 % Immature Gran # (Auto) 0.06 H (0.00-0.02) K/uL Neut # (Auto) 6.51 H (1.4-6.5) K/uL Lymph # (Auto) 1.59 (1.2-3.4) K/uL Bureau # (Auto) 0.68 H (0.11-0.59) K/uL Eos # (Auto) 0.14 (0-0.5) K/uL Baso # (Auto) 0.01 (0-0.2) K/uL PT (9.0-12.0) Seconds INR (0.9-1.1) APTT (21.0-31.0) Seconds PTT Ratio Sodium (136-145) mmol/L Potassium (3.5-5.1) mmol/L Chloride (98-107) mmol/L Carbon Dioxide (21-32) mmol/L Anion Gap (3-11) BUN (7-18) mg/dl Creatinine (0.6-1.2) mg/dl Est Cr Clr Drug Dosing ml/min Est GFR ( Amer) Est GFR (Non-Af Amer) BUN/Creatinine Ratio (10-20) Glucose (70-99) mg/dl Calcium (8.5-10.1) mg/dl Urine Color Urine Appearance (Clear) Urine pH (4.5-7.5) Ur Specific [place] (1.000-1.030) Urine Protein (Negative) Urine Glucose (UA) (Negative) Urine Ketones (Negative) Urine Blood (Negative) Urine Nitrite (Negative) Urine Bilirubin (Negative) Urine Urobilinogen (Negative) Ur Leukocyte Esterase (Negative) Urine WBC (Auto) (0-5) /hpf Urine RBC (Auto) (0-4) /hpf U Hyaline Cast (Auto) (0-5) /lpf U Epithel Cells (Auto) (0-5) /lpf Urine Bacteria (Auto) (Negative) Blood Type A Positive Antibody Screen NEGATIVE Medications Administered Current Inpatient Medications Al Hydrox/Mg Hydrox/Simethicone (Maalox) 30 ml PO Q6H PRN PRN Reason: Dyspepsia Stop: 11/03/19 23:07 Atorvastatin Calcium (Lipitor) 10 mg PO QAM SURJIT Stop: 11/04/19 08:59 Celecoxib (Celebrex) 100 mg PO PM SURJIT Stop: 11/04/19 20:59 Clonazepam (Klonopin) 0.5 mg PO QPM [facility] Stop: 11/04/19 20:59 Clopidogrel Bisulfate (Plavix) 75 mg PO QAM [facility] Stop: 11/04/19 08:59 Magnesium Hydroxide (Milk Of Magnesia) 30 ml PO Q6H PRN PRN Reason: Constipation Stop: 11/03/19 23:07 Metoprolol Tartrate (Lopressor) 25 mg PO QAM [facility] Stop: 11/04/19 08:59 Morphine Sulfate (Morphine Sulfate) 2 mg IV Q1H PRN PRN Reason: Moderate Pain (Rating 3,4,5,6) Stop: 10/18/19 19:32 Last Admin: 10/04/19 23:10 Dose: 2 mg Documented by: Polyethylene Glycol (Miralax Powder Packet) 17 gm PO BID PRN PRN Reason: Constipation Stop: 11/03/19 23:07 Risperidone (Risperdal) 1 mg PO TID [facility] Stop: 11/04/19 08:59 Thiamine HCl (Vitamin B-1) 250 mg PO QAM [facility] Stop: 11/04/19 08:59 Supervising Physician Co-Signing Physician Notes Attending addendum: I have physically seen this patient, have supervised the medical residents activities, and agree with the H&P unless as otherwise noted. Assessment and Plan: Closed subcapital left femur fracture- N.p.o. except medications for possible procedure. IV fluids. Pain control: Dilaudid 0.2 mg IV as needed severe pain every 4 hours Consult orthopedic surgery Seizure disorder/dementia- Continue Keppra 1000mg twice daily, thiamine, risperidone, folic acid, and lorazepam as needed. Remainder of orders and notations as noted. Resident Activity Tracking Resident Involvement: Resident Care Provided Care Provided: Adult Hospital Medicine (1) Dementia Dementia behavioral disturbance: without behavioral disturbance Dementia type: unspecified type Qualified Code(s): F03.90 - Unspecified dementia without behavioral disturbance
[2019-10-04] MEDS ORDERED: POLYETHYLENE (MIRALAX) 17 GM PACK PO PRN (23:08)
[2019-10-04] MEDS ORDERED: ALUMINUM/MAGNESIUM SUSP 30 ML UDC PO PRN (23:08)
[2019-10-04] MEDS ORDERED: MAGNESIUM HYDROXIDE SUSP 30 ML UDC PO PRN (23:08)
[2019-10-05 06:04] LABS: Basophils # (auto) 0.02 K/uL (0-0.2); Basophils % (auto) 0.3 %; Eosinophils # (auto) 0.16 K/uL (0-0.5); Eosinophils % (auto) 2.7 %; Hematocrit (blood only) 29.7 % (37-47); Hemoglobin 9.4 g/dL (12.0-16.0); Immature Granulocytes # (auto) 0.08 K/uL (0.00-0.02); Immature Granulocytes % (auto) 1.4 %; Lymphocytes # (auto) 1.63 K/uL (1.2-3.4); Lymphocytes % (auto) 27.9 %; Mean Corpuscular Hemoglobin 29.6 pg (25-34); Mean Corpuscular Hgb Conc 31.6 g/dL (32-36); Mean Corpuscular Volume 93.4 fL (80-100); Monocytes % (auto) 8.6 %; Neutrophils # (auto) 3.45 K/uL (1.4-6.5); Neutrophils % (auto) 59.1 %; Platelet Count 264 K/uL (130-400); RDW Coefficient of Variation 13.5 % (11.5-14.5); RDW Standard Deviation 46.3 fL (36.4-46.3); Red Blood Count 3.18 M/uL (4.2-5.4); White Blood Count 5.84 K/uL (4.8-10.8)
[2019-10-05 06:50] LABS: BUN Creatinine Ratio 20.1 (10-20); Calcium 8.2 mg/dl (8.5-10.1); Creatinine Clr Calc Pharmacy 45.7 ml/min; Est GFR (African American) 77.2; Est GFR (Non-African American) 66.6; Magnesium 1.8 mg/dl (1.8-2.4); Phosphorus 2.7 mg/dl (2.5-4.9); Potassium 3.9 mmol/L (3.5-5.1)
[2019-10-05] MEDS: ATORVASTATIN 10 MG TAB PO SCH (08:11)
[2019-10-05] MEDS: METOPROLOL TARTRATE 25 MG TAB PO SCH (08:12)
[2019-10-05] MEDS: levETIRAcetam 500 MG TAB PO SCH ×3 (08:12→22:20)
[2019-10-05] MEDS: THIAMINE HCL 50 MG TABLET PO SCH (08:12)
--- NOTE | 2019-10-05 08:55 | Orthopedic Consultation ---
Date of Consultation October 05, 2019 Assessment & Plan (1) Subcapital fracture of left femur: Patient will require a bipolar hemiarthroplasty. I discussed the case with Dr. Lama who has reviewed the films and agrees that she will need a bipolar hemiarthroplasty. He will contact the family and discuss treatment options. I have spoken to the hospitalist service and she has been tentatively cleared for the OR. Plan for bipolar hemiarthroplasty for the left hip unless otherwise decided by the family for different treatment options. Supervising Physician Co-Signing Physician Notes I seen and examined the patient, and spoken with her son, Bryson Easley ([phone]) at length today. I agree with PHILLIP De La Cruz's note above. Again, she is an 83-year-old nonverbal demented female who has a subacute fracture of her left femoral neck. She was recently admitted to [facility] in [place] about 10 days ago for status epilepticus. She was just discharged back to home 2 days ago. When she arrived home, the family noted that her leg looks swollen and she seemed to have pain with movement of that leg. They also noticed decreased activity and reluctance to actively move the leg. They were then sent for an x- ray, which showed a left hip fracture. She was then sent to the emergency room and admitted to the hospital. Upon examination, the left leg looks shortened. She seems unhappy with movement of the left leg, but it is difficult to tell whether she is in pain with movement of that leg. She cannot answer questions and does not follow commands. X-rays show a subacute displaced femoral neck fracture. It looks like this has been present for likely at least a few weeks. The only other previous imaging that we have of her hip is from April 2019, and there is no fracture on those images. When speaking with the son, she has not ambulated about 6 months, but she does stand and pivot to transfer. We discussed the pros and cons of surgical intervention for this hip fracture at length. Main benefit of the surgery would be to allow her to stand and pivot, and also pain reduction. If we did not do surgery, she would likely have continuous chronic pain in that left hip with any movement or manipulation. However, the surgical intervention is a fairly large hip hemiarthroplasty surgery. He understands all this, and wishes to proceed with surgical intervention. Risks, benefits, and alternatives of surgery were explained in detail. The surgical procedure, as well as postoperative recovery and rehabilitation, was also explained in detail. Risks include bleeding; infection; damage to surrounding structures such as nerves, blood vessels, and tendons that run in the area; persistent pain or stiffness; hardware failure; dislocation; leg length discrepancy; blood clots; or need for further surgery. He understands all of this and wishes to proceed with surgery. Informed consent was obtained. History of Present Illness Reason for Consultation: Left subcapital hip fracture Attending Physician: Ryland Thornton History of Present Illness Patient is an 83-year-old white female who was admitted per hospital service with a left subcapital hip fracture. Patient was recently discharged from [facility] for status epilepticus requiring intubation and sedation at that time. The patient returned home within the last few days and was weightbearing for transfers. They noticed the day prior to admission, the patient was not moving her leg as much and there appeared to be some swelling on that side. They arranged to see her primary care physician which led to an outpatient x-ray showing a left subcapital hip fracture. She was then brought to the hospital and admitted under the hospitalist service. Patient is nonverbal and has been this way due to dementia for some time. She apparently has declined over time in the last couple of years per family. History is taken from the chart at this time. She is currently awake however she does not answer questions but she appears to be able to follow a few different commands. We have been asked to take care of her hip fracture. Allergies Allergy/AdvReac Type Severity Reaction Status Date / Time enalapril Allergy Intermediate Cough Verified 09/20/19 10:28 escitalopram AdvReac Intermediate Hallucinati Verified 09/20/19 10:28 ons Home Medications Home Medications Medication Instructions Recorded Confirmed Type cholecalciferol (vitamin D3) 2,000 units PO HS 04/04/18 10/04/19 History [Vitamin D3] thiamine HCl (vitamin B1) [Vitamin 250 mg PO QAM 10/21/18 10/04/19 History B-1] acetaminophen 325 mg capsule 325 - 650 mg PO BID cap 01/30/19 10/04/19 History atorvastatin [Lipitor] 10 mg PO QAM 06/29/19 10/04/19 History celecoxib [Celebrex] 100 mg PO HS 06/29/19 10/04/19 History methenamine hippurate [Hiprex] 1 gm PO HS 06/29/19 10/04/19 History mirabegron [Myrbetriq] 50 mg PO DAILY 06/29/19 10/04/19 History cyanocobalamin (vitamin B-12) 5,000 mcg PO DAILY 07/20/19 10/04/19 History [Vitamin B-12] folic acid 0.8 mg PO DAILY 07/20/19 10/04/19 History diclofenac sodium 1 % topical gel 2 gm TOP QID PRN #100 gm 08/07/19 10/04/19 Rx metoprolol tartrate 25 mg tablet 25 mg PO QAM #90 tab 08/17/19 10/04/19 Rx polyethylene glycol 3350 [Miralax] 17 g PO BID 09/19/19 10/04/19 History Saccharomyces boulardii 250 mg PO DAILY 10/04/19 10/04/19 History amoxicillin-pot clavulanate 1 tab PO BID 10/04/19 10/04/19 History docusate sodium 100 mg PO DAILY 10/04/19 10/04/19 History levetiracetam 1,000 mg PO BID 10/04/19 10/04/19 History lorazepam 0.5 mg PO DAILY PRN 10/04/19 10/04/19 History nystatin 1 applic TOPICAL TID 10/04/19 10/04/19 History risperidone 0.5 mg PO TID 10/04/19 10/04/19 History triamcinolone acetonide 1 applic TOPICAL BID 10/04/19 10/04/19 History Patient History Medical History Anxiety (Chronic) Aortic stenosis (Chronic) Chest pain (Inactive) Diabetes (Resolved) Heart disease (Resolved) Hypertension (Chronic) Stroke (Resolved) UTI (urinary tract infection) Surgical History H/O aortic valve replacement History of colonoscopy History of cystoscopy with Cystolitholapaxy History of endoscopic gastrointestinal surgery S/P CABG (coronary artery bypass graft) S/P cataract surgery S/P tubal ligation Family History Father Myocardial infarction Mother Myocardial infarction Diabetes Stroke Rheumatoid arthritis Family/Other Cancer Other Hypertension Social History Preferred Language: Slovenian Communication Ability: Impaired Communication Ability Comment: hx cva nonverbal Brain Picker Required: No Beliefs That Will Affect Care: None marital status: / Current Living Situation: Family Current Living Situation Comment: w/ 2 dtrs current occupational status: retired Feels Safe at Home: Yes Smoking Status: Never smoker Second Hand Exposure: No ; Hx Alcohol Use: No Hx Substance Use: No Seatbelt Use: always Review of Systems Review of Systems: Unobtainable due to cognitive status Physical Exam Physical Exam: Focusing the exam on the left lower extremity, the extremity is shortened and externally rotated compared to the right. Due to hip fracture, no hip flexion or extension is attempted at this time, for range of motion. There is no overt bruising noted over the left hip at this time. No abrasions are noted. Left knee is not swollen compared to the right and appears to be nontender on palpation. She is able to do slight motion of her ankle and toes on command. Right lower extremity appears to be unaffected and is nontender at the knee and ankle as well as the right hip. Gentle range of motion of the right lower extremity does not appear to cause her any discomfort. Palpation of the shoulders elbows and wrist does not elicit any count of a painful response at this time and she does not follow commands to go through active range of motion throughout. Gentle passive range of motion appears to be within normal limits. Distal pulses are equal bilaterally. Results & Data ([facility]) Vital Signs (Past 12 Hours) Vital Signs Temp Pulse Pulse Resp BP BP Pulse Ox 10/05/19 07:33 52 L 10/05/19 07:15 37.1 C 51 L 18 165/72 H 93 10/05/19 04:00 36.4 C L 52 L 18 167/71 H 94 10/05/19 00:00 74 10/04/19 22:40 54 L 14 91 10/04/19 22:35 60 16 174/85 H 94 10/04/19 22:30 55 L 19 94 10/04/19 22:20 57 L 12 99 10/04/19 22:10 53 L 12 97 10/04/19 22:00 56 L 12 174/85 H 98 10/04/19 21:50 61 16 96 10/04/19 21:40 68 12 10/04/19 21:30 63 16 180/93 H 98 10/04/19 21:20 59 L 14 95 10/04/19 21:10 70 17 96 10/04/19 21:00 67 15 187/84 H 96 Diagnostic Findings [facility] PHILLIP Dozier [phone] XRay Report Patient: RADHA EASLEY Date: 10/04/19 MR#: [id number]: [address] Acct ID:[id number]: Date: [address] Zip: [place] [address] Age: 83Location: RAD Sex: F Room/Bed: Att Phy: RV. Sharad, MDDiagnosis: RAD Karin Phy: RV. Sharad, MDService Date: 10/04/19 Fam Phy:Interpreting Phy: Bladimir Green MD Admit Phy: Ordering Phy: RV. Orourke MD cc: ~ SINGLE VIEW PELVIS; 2 VIEWS RIGHT HIP; 2 VIEWS LEFT HIP CLINICAL HISTORY: Unspecified gait abnormality. FINDINGS: An AP view of the pelvis with AP and frog-leg views of the right and left hip are correlated with the pelvic CT dated 04/21/2019. The skeletal structures are osteopenic. No fracture is seen involving the right hip or the bony pelvis. There is a distracted subcapital fracture of the left femur. Mild sclerosis at the fracture margins suggests that the fracture is subacute. Moderate degenerative joint space narrowing is noted in the hips. Degenerative sclerosis is seen in the sacroiliac joints. Lumbosacral spondylosis is partially imaged. There are numerous pelvic phleboliths. The overlying soft tissues are normal as imaged. Advanced atherosclerotic calcification is seen in the femoral arteries. IMPRESSION: 1. There is a distracted and subacute appearing subcapital fracture of the left femur. Clinical correlation will be required. 2. No fracture seen involving the right hip or the bony pelvis. (1) Subcapital fracture of left femur Encounter type: initial encounter Fracture type: closed Qualified Code(s): S72.012A - Unspecified intracapsular fracture of left femur, initial encounter for closed fracture
[2019-10-05] MEDS ORDERED: CLOPIDOGREL BISULFATE 75 MG TAB PO SCH (09:00)
[2019-10-05] MEDS ORDERED: risperiDONE 1 MG TABLET PO SCH (09:00)
--- NOTE | 2019-10-05 10:17 | Anesthesiology Consultation ---
Date of Service October 05, 2019 Assessment & Plan Chart Review Chart Review: Acceptable Risk for Surgery and Patient NOT seen in Pre Admission Testing Consults Requested none ASA ASA4 Proposed Anesthesia Anesthesia Type: General and MAC Spinal Anesthesia Line Insertion: Arterial line History Surgery Operation Date: 10/05/19 10:55 Proposed Procedures p Left Bipolar Hemiarthroplasty - Sheldon Lama M.D. Height/Weight Height: 5 ft 4 in Weight: 63.5 kg Allergies Allergy/AdvReac Type Severity Reaction Status Date / Time enalapril Allergy Intermediate Cough Verified 09/20/19 10:28 escitalopram AdvReac Intermediate Hallucinati Verified 09/20/19 10:28 ons Medications Home Medications Medication Instructions Recorded Confirmed Last Taken cholecalciferol (vitamin D3) 2,000 units PO HS 04/04/18 10/04/19 01/11/19 [Vitamin D3] thiamine HCl (vitamin B1) [Vitamin 250 mg PO QAM 10/21/18 10/04/19 04/25/19 B-1] acetaminophen 325 mg capsule 325 - 650 mg PO BID cap 01/30/19 10/04/19 Unknown atorvastatin [Lipitor] 10 mg PO QAM 06/29/19 10/04/19 Unknown celecoxib [Celebrex] 100 mg PO HS 06/29/19 10/04/19 Unknown methenamine hippurate [Hiprex] 1 gm PO HS 06/29/19 10/04/19 Unknown mirabegron [Myrbetriq] 50 mg PO DAILY 06/29/19 10/04/19 Unknown cyanocobalamin (vitamin B-12) 5,000 mcg PO DAILY 07/20/19 10/04/19 Unknown [Vitamin B-12] folic acid 0.8 mg PO DAILY 07/20/19 10/04/19 Unknown diclofenac sodium 1 % topical gel 2 gm TOP QID PRN #100 gm 08/07/19 10/04/19 Unknown metoprolol tartrate 25 mg tablet 25 mg PO QAM #90 tab 08/17/19 10/04/19 Unknown polyethylene glycol 3350 [Miralax] 17 g PO BID 09/19/19 10/04/19 Unknown Saccharomyces boulardii 250 mg PO DAILY 10/04/19 10/04/19 Unknown amoxicillin-pot clavulanate 1 tab PO BID 10/04/19 10/04/19 Unknown docusate sodium 100 mg PO DAILY 10/04/19 10/04/19 Unknown levetiracetam 1,000 mg PO BID 10/04/19 10/04/19 Unknown lorazepam 0.5 mg PO DAILY PRN 10/04/19 10/04/19 Unknown nystatin 1 applic TOPICAL TID 10/04/19 10/04/19 Unknown risperidone 0.5 mg PO TID 10/04/19 10/04/19 Unknown triamcinolone acetonide 1 applic TOPICAL BID 10/04/19 10/04/19 Unknown Active Medications Generic Name Dose Route Start Last Admin Trade Name Freq PRN Reason Stop Dose Admin Atorvastatin Calcium 10 mg 10/05/19 09:00 10/05/19 08:11 Lipitor PO 11/04/19 08:59 10 mg QAM SURJIT Administration Levetiracetam 1,000 mg 10/05/19 09:00 10/05/19 08:12 Keppra PO 11/04/19 08:59 1,000 mg BID SURJIT Administration Metoprolol Tartrate 25 mg 10/05/19 09:00 10/05/19 08:12 Lopressor PO 11/04/19 08:59 25 mg QAM SURJIT Administration Morphine Sulfate 2 mg 10/04/19 19:33 10/04/19 23:10 Morphine Sulfate IV 10/18/19 19:32 2 mg Q1H PRN Administration Moderate Pain (Rating 3,4,5,6) Thiamine HCl 250 mg 10/05/19 09:00 10/05/19 08:12 Vitamin B-1 PO 11/04/19 08:59 250 mg QAM SURJIT Administration Past Medical History Medical History Anxiety (Chronic) Aortic stenosis (Chronic) Chest pain (Inactive) Diabetes (Resolved) Heart disease (Resolved) Hypertension (Chronic) Stroke (Resolved) UTI (urinary tract infection) Exercise / Class Metabolic Activity III < 4 Walking/Shop/Light housework Past Family History Family History Father Myocardial infarction Mother Myocardial infarction Diabetes Stroke Rheumatoid arthritis Family/Other Cancer Other Hypertension Past Surgical History Surgical History H/O aortic valve replacement History of colonoscopy History of cystoscopy with Cystolitholapaxy History of endoscopic gastrointestinal surgery S/P CABG (coronary artery bypass graft) S/P cataract surgery S/P tubal ligation Past Anesthesia History No Hx of Anesthesia Complications and No Family Hx of Anesthesia Complications History of PONV No Hx of PONV and No Hx of Motion Sickness Social History Smoking Status: Never smoker Hx Alcohol Use: No Hx Substance Use: No substance use type: marijuana Physical Exam Vital Signs Last Vital Signs Temp 37.1 C 10/05/19 07:15 Pulse 52 L 10/05/19 07:33 Resp 18 10/05/19 07:15 BP 165/72 H 10/05/19 07:15 Pulse Ox 93 10/05/19 07:15 Testing Laboratory Results 10/05/19 05:36 10/05/19 05:36 PT 11.0 Seconds (9.0-12.0) 10/04/19 19:46 INR 1.0 (0.9-1.1) 10/04/19 19:46 APTT 25.1 Seconds (21.0-31.0) 10/04/19 19:46 Urine Color Yellow 10/04/19 20:22 Urine Appearance Clear (Clear) 10/04/19 20:22 Urine pH 6.5 (4.5-7.5) 10/04/19 20:22 Ur Specific [place] 1.018 (1.000-1.030) 10/04/19 20:22 Urine Protein Trace (Negative) H 10/04/19 20:22 Urine Glucose (UA) Negative (Negative) 10/04/19 20:22 Urine Ketones Negative (Negative) 10/04/19 20:22 Urine Nitrite Negative (Negative) 10/04/19 20:22 Ur Leukocyte Esterase Negative (Negative) 10/04/19 20:22 Urine WBC (Auto) 1-5 /hpf (0-5) 10/04/19 20:22 Urine RBC (Auto) 0-4 /hpf (0-4) 10/04/19 20:22 U Hyaline Cast (Auto) 1-5 /lpf (0-5) 10/04/19 20:22 U Epithel Cells (Auto) >30 /lpf (0-5) H 10/04/19 20:22 Urine Bacteria (Auto) Negative (Negative) 10/04/19 20:22 Blood Type A Positive 10/04/19 19:46 Antibody Screen NEGATIVE 10/04/19 19:46 Electrocardiogram Date: 10/04/19 Findings: + NSR @ (at 70 w/ sinus arrhythmia;) and + LBBB Chest X-Ray Date: 10/04/19 Findings: + NAD, + cardiomegaly and + atherosclerosis of thoracic aorta Echocardiogram Date: 09/17/18 EF: 55 LV Function: normal Other Findings: + atrial enlargement (LA) and + LVH (severe) Valvular Disease: + MR (mild) [place]-mild-mod. AV-normal functioning bioprosthetic AV Severe MAC RV-reduced function;? extent of reduction
--- NOTE | 2019-10-05 11:07 | Hospitalist Progress Note ---
Date of Service October 05, 2019 Assessment & Plan (1) Subcapital fracture of left femur: 83 female with recent history status epilepticus secondary to acute CVA requiring intubation and sedation, discharged from [facility] 10/02, presented with left femur fx * Hip/Pelvis XR demonstrated distracted and subacute appearing subcapital fracture of the left femur * uncertain timeline of when fracture occurred or exact mechanism, without recent history of fall or signs of local ecchymosis would presume that this is 2/2 seizure * Orthopaedic surgery consulted * Pre-op labs/imaging obtained and reviewed -- CXR with cardiomegaly without acute process/congestion. H/h low at 9.4/29.7 (t/s ordered), VSS, Tele = Sinus luiz in the 50s, INR 1.0, BMP without significant abn * RCIC calculated to reflect Class III risk, 10.1% 30 day mortality risk. Acceptable risk given patient's current status/benefits/risk discussion with family * NPO for OR today with Dr. Lama * Labs in AM (2) Status epilepticus: * Recently discharged from [facility] following prolonged seizure thought to be secondary prior strokes * Continue keppra 100mg PO BID * Of note, patient discharged from [facility] on Augmentin to be continued until 10/04 for aspiration pneumonia -- will resume to complete course of treatment as it does not appear she received yesterday (3) CVA (cerebral vascular accident): * Hx several CVAs, most recent last week * Patient non-verbal at baseline * Continue home atorvastatin 10mg, metoprolol 25mg * Not on ASA? (4) Dementia: * patient non-verbal at baseline * functional status declined significantly over the last several years according to family * patient does pivot to chair --> per discussion between ortho/family, will proceed to OR to preserve this (5) Hyperlipidemia: * Chronic. Stable * Continue home atorvastatin (6) CAD (coronary artery disease): * Hx CABG x1 * Hx aortic valve replacement 2014 at [facility] * Continue home metoprolol 25mg PO daily, atorvastatin 10mg * Not on ASA -- ? (7) Chronic diastolic (congestive) heart failure: * s/p aortic valve replacement September 2014, bioprosthetic * Most recent ECHO September 2018 with severe LVH, normal LV systolic function, mildly dilated LA, mild/mod VA, mild MR * Continue home metoprolol 25mg PO daily * Not on JAVY/ARB/spironolactone at this time * Daily weights, I&O * Continue to monitor for s/sx volume overload (8) Vitamin D deficiency disease: * Continue home supplementation (9) DVT prophylaxis: * Chemoprophylaxis held for OR, then per ortho * SCDs ordered Dispo: OR this afternoon with Dr. Lama Admission and Anticipated Discharge Date Admission Date: October 04, 2019 Supervising Physician Co-Signing Physician Notes Attending Attestation - Chart reviewed, care plan d/w PHILLIP Moody. I agree w/ the gaines components of her documentation. Subacute left hip fracture - possibly due to recent status epilepticus and injury during prolonged seizures??. To OR today for ORIF. Cont seizure meds. Labs acceptable. Appears to have CKD stage 3 with CrCL 30/40s. Labs in am. Ryland Thornton MD Subjective Patient non-verbal. Grimmaces with touch/movement of left lower extremity. She does not answer questions secondary to cognitive status. Responds to some commands. Plan for OR this afternoon with Dr. Lama. Per family, patient does pivot to stand, so they would like to proceed to OR. Review of Systems Review of Systems: Unobtainable due to cognitive status Physical Exam Constitutional: WD/WN, vitals as above Eyes: PERRL, conjunctivae normal, anicteric sclerae ENMT: external ear and nose normal, oropharynx normal Neck: normal visual inspection Respiratory: normal respiratory effort, lungs clear to auscultation Cardiovascular: Rate/Rhythm: regular rate and regular rhythm Heart Sounds: normal S1, normal S2 and + murmur (Systolic ejection murmur best appreciated RUSB); no gallop and no cardiac rub Extremities: + edema (L lower extremity) Gastrointestinal (Abdomen): normal bowel sounds, soft, nontender, no hep atosplenomegaly Musculoskeletal: Hip: no effusion, no skin erythema and no ecchymosis Knee: no deformity, no effusion, no skin erythema and no ecchymosis left leg shorter than right, externally rotated Did not perform ROM at this time due to fx Able to move toes and does respond to touch Skin: no rashes, warm and dry Neurologic: patellar DTR's 2+ bilat, sensation intact Psychiatric: Apperance: + disheveled Eye Contact: + poor eye contact Speech: + mute Lymphatic: no cervical or axillary lymphadenopathy Results & Data Results & Data ([facility]) Vital Signs (Past 12 Hours) Vital Signs Temp Pulse Pulse Resp BP Pulse Ox 10/05/19 10:56 36.5 C 56 L 16 150/71 H 97 10/05/19 07:33 52 L 10/05/19 07:15 37.1 C 51 L 18 165/72 H 93 10/05/19 04:00 36.4 C L 52 L 18 167/71 H 94 10/05/19 00:00 74 Laboratory Results 10/05/19 10/05/19 10/04/19 Range/Units 05:36 05:36 20:22 WBC 5.84 (4.8-10.8) K/uL RBC 3.18 L (4.2-5.4) M/uL Hgb 9.4 L (12.0-16.0) g/dL Hct 29.7 L (37-47) % MCV 93.4 (80-100) fL MCH 29.6 (25-34) pg MCHC 31.6 L (32-36) g/dL RDW Std Deviation 46.3 (36.4-46.3) fL RDW Coeff of [place] 13.5 (11.5-14.5) % Plt Count 264 (130-400) K/uL MPV 10.0 (7.4-10.4) fL Immature Gran % (Auto) 1.4 % Neut % (Auto) 59.1 % Lymph % (Auto) 27.9 % [place] % (Auto) 8.6 % Eos % (Auto) 2.7 % Baso % (Auto) 0.3 % Immature Gran # (Auto) 0.08 H (0.00-0.02) K/uL Neut # (Auto) 3.45 (1.4-6.5) K/uL Lymph # (Auto) 1.63 (1.2-3.4) K/uL [place] # (Auto) 0.50 (0.11-0.59) K/uL Eos # (Auto) 0.16 (0-0.5) K/uL Baso # (Auto) 0.02 (0-0.2) K/uL PT (9.0-12.0) Seconds INR (0.9-1.1) APTT (21.0-31.0) Seconds PTT Ratio Sodium 144 (136-145) mmol/L Potassium 3.9 D (3.5-5.1) mmol/L Chloride 111 H (98-107) mmol/L Carbon Dioxide 29 (21-32) mmol/L Anion Gap 4.0 (3-11) BUN 17 (7-18) mg/dl Creatinine 0.82 (0.6-1.2) mg/dl Est Cr Clr Drug Dosing 45.7 ml/min Est GFR ( Amer) 77.2 Est GFR (Non-Af Amer) 66.6 BUN/Creatinine Ratio 20.1 H (10-20) Glucose 89 (70-99) mg/dl Calcium 8.2 L D (8.5-10.1) mg/dl Phosphorus 2.7 (2.5-4.9) mg/dl Magnesium 1.8 (1.8-2.4) mg/dl Urine Color Yellow Urine Appearance Clear (Clear) Urine pH 6.5 (4.5-7.5) Ur Specific [place] 1.018 (1.000-1.030) Urine Protein Trace H (Negative) Urine Glucose (UA) Negative (Negative) Urine Ketones Negative (Negative) Urine Blood Negative (Negative) Urine Nitrite Negative (Negative) Urine Bilirubin Negative (Negative) Urine Urobilinogen Negative (Negative) Ur Leukocyte Esterase Negative (Negative) Urine WBC (Auto) 1-5 (0-5) /hpf Urine RBC (Auto) 0-4 (0-4) /hpf U Hyaline Cast (Auto) 1-5 (0-5) /lpf U Epithel Cells (Auto) >30 H (0-5) /lpf Urine Bacteria (Auto) Negative (Negative) Blood Type Antibody Screen 10/04/19 10/04/19 10/04/19 Range/Units 19:46 19:46 19:46 WBC 8.99 (4.8-10.8) K/uL RBC 3.74 L (4.2-5.4) M/uL Hgb 11.3 L (12.0-16.0) g/dL Hct 35.0 L (37-47) % MCV 93.6 (80-100) fL MCH 30.2 (25-34) pg MCHC 32.3 (32-36) g/dL RDW Std Deviation 45.9 (36.4-46.3) fL RDW Coeff of [place] 13.4 (11.5-14.5) % Plt Count 290 (130-400) K/uL MPV 10.1 (7.4-10.4) fL Immature Gran % (Auto) 0.7 % Neut % (Auto) 72.3 % Lymph % (Auto) 17.7 % [place] % (Auto) 7.6 % Eos % (Auto) 1.6 % Baso % (Auto) 0.1 % Immature Gran # (Auto) 0.06 H (0.00-0.02) K/uL Neut # (Auto) 6.51 H (1.4-6.5) K/uL Lymph # (Auto) 1.59 (1.2-3.4) K/uL [place] # (Auto) 0.68 H (0.11-0.59) K/uL Eos # (Auto) 0.14 (0-0.5) K/uL Baso # (Auto) 0.01 (0-0.2) K/uL PT 11.0 (9.0-12.0) Seconds INR 1.0 (0.9-1.1) APTT 25.1 (21.0-31.0) Seconds PTT Ratio 0.9 Sodium 143 (136-145) mmol/L Potassium 5.4 H (3.5-5.1) mmol/L Chloride 108 H (98-107) mmol/L Carbon Dioxide 27 (21-32) mmol/L Anion Gap 9.0 (3-11) BUN 22 H (7-18) mg/dl Creatinine 0.96 (0.6-1.2) mg/dl Est Cr Clr Drug Dosing 39.0 ml/min Est GFR ( Amer) 63.8 Est GFR (Non-Af Amer) 55.1 BUN/Creatinine Ratio 23.0 H (10-20) Glucose 131 H (70-99) mg/dl Calcium 9.8 (8.5-10.1) mg/dl Phosphorus (2.5-4.9) mg/dl Magnesium (1.8-2.4) mg/dl Urine Color Urine Appearance (Clear) Urine pH (4.5-7.5) Ur Specific [place] (1.000-1.030) Urine Protein (Negative) Urine Glucose (UA) (Negative) Urine Ketones (Negative) Urine Blood (Negative) Urine Nitrite (Negative) Urine Bilirubin (Negative) Urine Urobilinogen (Negative) Ur Leukocyte Esterase (Negative) Urine WBC (Auto) (0-5) /hpf Urine RBC (Auto) (0-4) /hpf U Hyaline Cast (Auto) (0-5) /lpf U Epithel Cells (Auto) (0-5) /lpf Urine Bacteria (Auto) (Negative) Blood Type Antibody Screen 10/04/19 Range/Units 19:46 WBC (4.8-10.8) K/uL RBC (4.2-5.4) M/uL Hgb (12.0-16.0) g/dL Hct (37-47) % MCV (80-100) fL MCH (25-34) pg MCHC (32-36) g/dL RDW Std Deviation (36.4-46.3) fL RDW Coeff of [place] (11.5-14.5) % Plt Count (130-400) K/uL MPV (7.4-10.4) fL Immature Gran % (Auto) % Neut % (Auto) % Lymph % (Auto) % [place] % (Auto) % Eos % (Auto) % Baso % (Auto) % Immature Gran # (Auto) (0.00-0.02) K/uL Neut # (Auto) (1.4-6.5) K/uL Lymph # (Auto) (1.2-3.4) K/uL [place] # (Auto) (0.11-0.59) K/uL Eos # (Auto) (0-0.5) K/uL Baso # (Auto) (0-0.2) K/uL PT (9.0-12.0) Seconds INR (0.9-1.1) APTT (21.0-31.0) Seconds PTT Ratio Sodium (136-145) mmol/L Potassium (3.5-5.1) mmol/L Chloride (98-107) mmol/L Carbon Dioxide (21-32) mmol/L Anion Gap (3-11) BUN (7-18) mg/dl Creatinine (0.6-1.2) mg/dl Est Cr Clr Drug Dosing ml/min Est GFR ( Amer) Est GFR (Non-Af Amer) BUN/Creatinine Ratio (10-20) Glucose (70-99) mg/dl Calcium (8.5-10.1) mg/dl Phosphorus (2.5-4.9) mg/dl Magnesium (1.8-2.4) mg/dl Urine Color Urine Appearance (Clear) Urine pH (4.5-7.5) Ur Specific [place] (1.000-1.030) Urine Protein (Negative) Urine Glucose (UA) (Negative) Urine Ketones (Negative) Urine Blood (Negative) Urine Nitrite (Negative) Urine Bilirubin (Negative) Urine Urobilinogen (Negative) Ur Leukocyte Esterase (Negative) Urine WBC (Auto) (0-5) /hpf Urine RBC (Auto) (0-4) /hpf U Hyaline Cast (Auto) (0-5) /lpf U Epithel Cells (Auto) (0-5) /lpf Urine Bacteria (Auto) (Negative) Blood Type A Positive Antibody Screen NEGATIVE PG Care Time/CCT Total # of Minutes Spent Total Time Spent with Patient: Total time spent is greater than 50% in coordination of care (as documented) at patient's floor/unit and/or counseling patient: Coding Level of Care Code 41868 Subseq Hosp Care Lvl 3 Diagnoses Subcapital fracture of left femur S72.012A Encounter type: initial encounter Fracture type: closed Status epilepticus G40.901 CVA (cerebral vascular accident) I63.9 Dementia F03.90 Dementia behavioral disturbance: without behavioral disturbance Dementia type: unspecified type Hyperlipidemia E78.2 Hyperlipidemia type: mixed hyperlipidemia CAD (coronary artery disease) I25.10 Chronic diastolic (congestive) heart failure I50.32 Vitamin D deficiency disease E55.9 DVT prophylaxis Z29.9 (1) Dementia Dementia behavioral disturbance: without behavioral disturbance Dementia type: unspecified type Qualified Code(s): F03.90 - Unspecified dementia without behavioral disturbance (2) Hyperlipidemia Hyperlipidemia type: mixed hyperlipidemia Qualified Code(s): E78.2 - Mixed hyperlipidemia (3) Subcapital fracture of left femur Encounter type: initial encounter Fracture type: closed Qualified Code(s): S72.012A - Unspecified intracapsular fracture of left femur, initial encounter for closed fracture
[2019-10-05] MEDS ORDERED: BUPIVACAINE 0.5 % 5 MG/1 ML MPF 30ML VIAL ONE (11:19)
[2019-10-05] MEDS ORDERED: LIDOCAINE HCL 1% 20 ML VIAL ONE (11:19)
--- NOTE | 2019-10-05 11:31 | History & Physical Bridge Note ---
Date of Service October 05, 2019 History & Physical Bridge Note I have examined the patient, reviewed the History & Physical and in the interval since the performance of the History & Physical I have noted the following changes of clinical significance: no changes noted
[2019-10-05] MEDS ORDERED: CEFAZOLIN 2,000 MG/15 ML IV PUSH IV ONE (11:35)
[2019-10-05] MEDS ORDERED: CEFAZOLIN 2000MG 2,000 MG/15 ML SYR IV SCH (12:00)
[2019-10-05] MEDS ORDERED: NALOXONE HCL 0.4 MG/1 ML VIAL/CARP IV PRN ×2 (12:16→17:29)
[2019-10-05] MEDS ORDERED: PROMETHAZINE HCL 12.5 MG in SODIUM CHLORIDE 0.9% 50 ML IV PRN (12:16)
[2019-10-05] MEDS ORDERED: ONDANSETRON INJ 2 MG/ML 2 ML VIAL IV PRN ×2 (12:16→17:29)
[2019-10-05] MEDS ORDERED: fentaNYL citrate 100 MCG/2 ML VIAL IV PRN (12:16)
[2019-10-05] MEDS ORDERED: ePHEDrine sulfate 50 MG/ML AMP IV PRN (12:16)
[2019-10-05] MEDS ORDERED: ATROPINE SULFATE 0.1 MG/ML 10ML SYR IV PRN (12:16)
[2019-10-05] MEDS ORDERED: LABETALOL HCL IV 5 MG/ML 20ML IV PRN (12:16)
[2019-10-05] MEDS ORDERED: fentaNYL citrate 100 MCG/2 ML VIAL ONE ×3 (12:51→14:48)
[2019-10-05] MEDS ORDERED: PHENYLEPHRINE 100MCG/ML 5ML SYR ONE (13:00)
[2019-10-05] MEDS ORDERED: ROCURONIUM BROMIDE 10 MG/ML 5 ML VIAL ONE (13:00)
[2019-10-05] MEDS ORDERED: ePHEDrine sulfate 50 MG/ML SYR ONE (13:00)
[2019-10-05] MEDS ORDERED: ONDANSETRON INJ 2 MG/ML 2 ML VIAL ONE ×2 (13:04→15:39)
[2019-10-05] MEDS ORDERED: DEXAMETHASONE SOD INJ 4 MG/ML VIAL ONE (13:04)
[2019-10-05] MEDS ORDERED: SODIUM CHLORIDE 0.9% 250 ML IV PRN (14:28)
[2019-10-05 14:45] LABS: Hematocrit (blood only) 27.6 % (37-47); Hemoglobin 8.8 g/dL (12.0-16.0)
[2019-10-05 15:11] LABS: iSTAT Arterial Blood Gas HCO3 30 meg/L (19-24); iSTAT Arterial Blood Gas pCO2 48 mmHg (35-46); iSTAT Arterial Blood Gas pH 7.41 (7.35-7.45); iSTAT Arterial Blood Gas pO2 349 mmHg (80-95); iSTAT Carbon Dioxide 32 mmol/L (24-31); iSTAT Hematocrit 24 % (37-47); iSTAT Hemoglobin 8.2 g/dl (12.0-16.0); iSTAT Potassium 4.2 mmol/L (3.3-5.0); iSTAT Sodium 139 mmol/L (135-144)
--- NOTE | 2019-10-05 15:32 | XRay Report ---
XR hip LT 1V CLINICAL HISTORY: LEFT HIP XRAY IN OR COMPARISON STUDY: Bilateral hips 10/04/2019. FINDINGS: Resection of the left femoral head/neck for left hip arthroplasty. There is a cerclage wire at the proximal left femur. Soft tissue gas at the left hip is consistent with postoperative change. The additional images demonstrate a left femoral stem placement which appears in good position. No a cute fractures. IMPRESSION: Intraoperative study of the left hip for left femoral stem placement. ACT 112: Negative or not required by law. Electronically signed by: Madan Ortiz M.D. 10/05/2019 3:30 PM
[2019-10-05] MEDS ORDERED: CEFAZOLIN 250 MG/ML 1 GM VIAL ONE (15:37)
--- NOTE | 2019-10-05 16:05 | Electrocardiogram Report ---
Test Reason : Blood Pressure : / mmHG Vent. Rate : 070 BPM Atrial Rate : 070 BPM P-R Int : 162 ms QRS Dur : 156 ms QT Int : 448 ms P-R-T Axes : 098 -56 080 degrees QTc Int : 483 ms Poor data quality, interpretation may be adversely affected Sinus rhythm with marked sinus arrhythmia Left axis deviation Left bundle branch block Abnormal ECG When compared with ECG of 25-SEP-2019 18:17, No significant change was found Confirmed by Abad Lester ([id number]) on 10/05/2019 4:04:34 PM Referred By: REFERRED SELF Confirmed By:Sha Lester
--- NOTE | 2019-10-05 16:20 | Post Operative Brief Note ---
Immediate Post Op Note v1 Date of Surgery October 05, 2019 Pre & Post Diagnosis Operation Date: 10/05/19 10:55 Pre-Op Diagnosis: Left Hip Femoral Neck Fracture Post-Op Diagnosis: Left Hip Femoral Neck Fracture I identified the patient and participated in the time-out.: Yes Procedure Operation Date: 10/05/19 10:55 Actual Procedures Left Hip Bipolar Hemiarthroplasty(Left) - Sheldon Lama M.D. Surgeon Sheldon Lama [employer] Intern Mike De La Cruz PA-C Estimated Blood Loss 200 Findings Consistent with Post-Op Diagnosis Drains Lakhani Catheter (patient arrived into OR with lakhani catheter in place.)
--- NOTE | 2019-10-05 16:26 | Operative Report ---
Post Operative Report Pre & Post Diagnosis Operation Date: 10/05/19 10:55 Pre-Op Diagnosis: Left Hip Subacute Femoral Neck Fracture Post-Op Diagnosis: Left Hip Subacute Femoral Neck Fracture I identified the patient and participated in the time-out.: Yes Procedure Operation Date: 10/05/19 10:55 Actual Procedures Left Hip Bipolar Hemiarthroplasty (33526) - Sheldon Lama M.D. Surgeon Sheldon Lama Gauge Checker Mike De La Cruz PA-C Estimated Blood Loss 200 Findings Consistent with Post-Op Diagnosis Specimens Femoral head Drains None Anesthesia Type General Complications Small proximal femur fracture stabilized with 1 cerclage wire Disposition Disposition: Recovery Room Indications Ms. Easley is an 83-year-old nonverbal and nonambulatory female with dementia. She recently had an episode of status epilepticus, but otherwise no obvious trauma that would have caused injury to her left hip. At some point, the family noticed increased swelling, decreased active movement, and apparent pain of her hip. History, clinical exam, and imaging were consistent with the above diagnosis. Risks, benefits, and alternatives of surgery were explained in detail. The family understood all this and wished to proceed. Description of Procedure Components implanted: Biomet Echo Bi-Metric press-fit [id number] Standard Femoral Stem 46mm RingLoc Bi-Polar Acetabular Cup with +6mm Neck Patient was identified in the preoperative holding area. Operative extremity was marked. Patient was then brought back to the operating room, and general anesthesia was induced without complication. Appropriate weight-based dose of Ancef was infused intravenously for antibiotic prophylaxis. Patient was then turned in the lateral decubitus position with the left hip up. Hip positioner was applied to hold the pelvis stable. Axillary roll was placed and all bony prominences were well padded. The left leg was then prepped and draped in a standard sterile fashion using Chlorhexidine prep. I made an incision over the lateral aspect of the hip for a posterolateral approach. I then dissected through subcutaneous tissues down to the iliotibial band. The iliotibial band was divided in line with its fibers at the posterior third of the greater trochanter. Greater trochanteric bursectomy was then performed to expose the posterolateral aspect of the hip. I released the piriformis tendon and short external rotators off of their attachment point at the posterolateral aspect of the greater trochanter. These tendons was tagged with #2 FiberWire sutures in a locking [place] fashion for later repair. I then made a T-capsulotomy of the posterior hip joint capsule. The inferior leaf the capsulotomy was tagged with a #1 Vicryl suture for retraction during hip reduction and later repair. The femoral neck fracture was then easily identified. Comminuted fracture fragments were removed as they were encountered. This appeared to be somewhat of a chronic fracture due to the erosion of the femoral neck and femoral head fracture fragments. I then marked the femoral neck about 1 cm proximal to the lesser trochanter and made the proximal femoral cut in line with the angle given by the proximal femoral resection guide. Femoral neck fracture fragments were then removed proximal to the neck cut. The femoral head was then removed and sized. Ligamentum teres was resected from the depth of the acetabulum and the acetabulum was copiously irrigated with sterile saline to insure that there were no remaining bone fragments. I then placed an appropriately-sized trial head into the acetabulum. It seated fully, had free range of motion, and had a good suction seal. I then used the box osteotome to remove a rectangle of bone at the posterolateral femur in line with the femoral canal to ensure that I was completely lateralized into the medial wall of the greater trochanter. Canal finder was then used down the center of the femoral canal. I then used a lateralizing reamer to ensure that I was completely lateralized to avoid varus positioning of the implant. I then sequentially reamed with the canal reamers until I got good cortical chatter. I then sequentially broached until I achieved good cortical fit. The final femoral stem was impacted into place. This initially showed apparent excellent rotational stability. I then trialed with various neck lengths on the femoral stem while taking the hip through full range of motion. Unfortunately, after trialing, the femoral stem appeared loose. I very ca refully inspected the proximal femur, and it appeared that there was a very small crack up at the calcar, but it did not appear to propagate distally down the shaft. I decided to put a cerclage wire around the proximal femur to prevent propagation of this fracture line. The cerclage wire was passed underneath the quadriceps tendon proximally, and then wrapped around the proximal femoral shaft proximal to the lesser trochanter. It was tensioned and then crimped appropriately, which anatomically reduced this small fracture. I then reimplanted the same femoral stem, which again appeared very stable. I then again performed a trial reduction, and the stem again became loose, but the small proximal fracture remained anatomically reduced. I then removed the femoral stem and again broached to a slightly larger size. Again, this appeared to be very stable when it was impacted, and I then implanted this slightly larger size stem. Trial reduction was again performed, and unfortunately the stem again became loose. I did not see any obvious reason intraoperatively for this. Intraoperative x-ray was then performed with the stem in place, which unfortunately showed varus positioning of the stem. At this point I recognized that there was some chronic deformity and bony protrusions along the medial aspect of the greater trochanter that was pushing the broach handle into a varus position, therefore giving the femoral broach and stem good stability while the broach handle was attached, but the broach and stems were becoming unstable after handle detachment. I therefore carefully but aggressively debrided some of these bony prominences along the medial aspect of the greater trochanter. Is careful not to be too aggressive to cause a greater trochanteric fracture. This then allowed better positioning of the canal reamers and broach handles. I verified proper alignment under intraoperative x-ray. I then sequentially reamed and broached up to a much larger stem. I have verified proper stability with the stem and broach handles both attached and detached. Is finally comfortable with proper stability of the stem in a proper position, and again this was verified under x-ray. The larger femoral stem was then impacted, and I again verified stability and anatomic reduction of the small proximal fracture. I then selected a neck length that gave good stability of the hip through full range of motion, including in flexion, adduction, and internal rotation, as well as good range of motion in flexion and extension, and equal leg lengths. I then removed the trial femoral head and impacted the final femoral head onto the Mathur taper of the femoral stem. I then again reduced the hip and took it through full range of motion. Again, there was excellent stability of the hip with full range of motion. I was then satisfied with the procedure. The wound was copiously irrigated with sterile saline via pulsatile irrigation. I then closed the posterior capsulotomy with #2 FiberWire suture. I then made three drill holes in the posterior aspect of the greater trochanter and passed the previously placed FiberWire sutures in the piriformis tendon and short external rotators through these drill holes. The tendons were reapproximated and tied with the hip held in external rotation. I then closed the iliotibial band with a #1 Vicryl suture as a tacking stitch followed by a running #0 V-Lock suture. Deep dermal tissue was then closed with 2-0 V-Lock, and subcutaneous tissue was closed with 3-0 V- Lock. Skin was then closed with klaudia. Sterile dressings were then applied with Xeroform, sterile gauze, ABD pad, and foam tape. Drapes were then removed and a hip abduction pillow was placed. The patient was then transferred over to the stretcher and taken to the Post-Anesthesia Care Unit in stable condition. There were no other immediate complications from the procedure. I was present and scrubbed for the entire procedure. Due to the complex nature of the procedure, the entire surgery was performed with the operational assistance of Mike De La Cruz PA-C. The dam tender assistant, under direct supervision, was involved in the performance of all aspects of the muhammad rgical procedure including patient positioning, tissue retraction, hemostasis, wound closure, and dressing application. I attest to the content of the Intraoperative Record and any orders documented therein. Any exceptions are noted below.
--- NOTE | 2019-10-05 16:52 | XRay Report ---
XR hip 1V LT w pelvis HISTORY: 83 years-old Female IN PACU - A/P PELVIS and LATERAL HIP left hip total joint arthroplasty COMPARISON: Left hip radiographs of same day TECHNIQUE: AP view of the pelvis with crosstable lateral view of the left hip FINDINGS: Left hip total joint arthroplasty with intertrochanteric cerclage wire. Satisfactory positioning of t he hardware without dislocation or acute fracture identified. Lateral skin klaudia. Expected postsurg ical soft tissue swelling and deep tissue air. Moderate right hip osteoarthritis. Arterial calcificat ions. IMPRESSION: Satisfactory alignment of the left hip total joint arthroplasty. ACT 112: Negative or not required by law. The above report was generated using voice recognition software. It may contain grammatical, syntax o r spelling errors. Electronically signed by: Suraj Day M.D. 10/05/2019 4:50 PM
[2019-10-05] MEDS ORDERED: AMOXICILLIN/CLAVULANATE 875 MG TAB PO SCH (17:00)
[2019-10-05] MEDS ORDERED: HYDROmorphone INJ 0.5 MG/0.5 ML SYR IV PRN (17:29)
--- NOTE | 2019-10-05 17:38 | Anesthesiology Progress Note ---
Date of Service October 05, 2019 Anesthesia Post Procedure Vital Signs Vital Signs: Temp Pulse Pulse Pulse Resp BP BP 10/05/19 17:29 82 108/63 10/05/19 17:00 36.2 C L 79 16 95/64 L 10/05/19 16:50 77 14 116/60 10/05/19 16:40 79 17 121/65 10/05/19 16:30 78 15 113/67 10/05/19 16:22 36 C L 78 16 128/65 10/05/19 10:56 36.5 C 56 L 16 150/71 H 10/05/19 07:33 52 L 10/05/19 07:15 37.1 C 51 L 18 165/72 H 10/05/19 04:00 36.4 C L 52 L 18 167/71 H 10/05/19 00:00 74 10/04/19 22:40 54 L 14 10/04/19 22:35 60 16 174/85 H 10/04/19 22:30 55 L 19 10/04/19 22:20 57 L 12 10/04/19 22:10 53 L 12 10/04/19 22:00 56 L 12 174/85 H 10/04/19 21:50 61 16 10/04/19 21:40 68 12 10/04/19 21:30 63 16 180/93 H 10/04/19 21:20 59 L 14 10/04/19 21:10 70 17 10/04/19 21:00 67 15 187/84 H 10/04/19 20:54 69 14 10/04/19 20:30 55 L 12 190/78 H 10/04/19 19:21 36.9 C 71 24 155/95 H Pulse Ox 10/05/19 17:29 95 10/05/19 17:00 95 10/05/19 16:50 96 10/05/19 16:40 100 10/05/19 16:30 99 10/05/19 16:22 99 10/05/19 10:56 97 10/05/19 07:33 10/05/19 07:15 93 10/05/19 04:00 94 10/05/19 00:00 10/04/19 22:40 91 10/04/19 22:35 94 10/04/19 22:30 94 10/04/19 22:20 99 10/04/19 22:10 97 10/04/19 22:00 98 10/04/19 21:50 96 10/04/19 21:40 10/04/19 21:30 98 10/04/19 21:20 95 10/04/19 21:10 96 10/04/19 21:00 96 10/04/19 20:54 97 10/04/19 20:30 95 10/04/19 19:21 96 Pain Intensity Left Leg: Pain Intensity: 0 Transfer of Care Handoff Completed per policy Notes Mental Status: alert / awake / arousable Patient Amnestic to Procedure: Yes Nausea / Vomiting: adequately controlled Pain: adequately controlled Airway Patency, RR, SpO2: stable & adequate BP & HR: stable & adequate Hydration State: stable & adequate Anesthetic Complications: no major complications apparent
[2019-10-05 17:42] LABS: Hemoglobin 10.3 g/dL (12.0-16.0)
[2019-10-05] MEDS ORDERED: LIDOCAINE HCL 2% 2 ML VIAL/AMP(20MG/ML) INFIL ONE (18:29)
[2019-10-05] MEDS ORDERED: fentaNYL citrate 100 MCG/2 ML VIAL IV ONE (18:29)
[2019-10-05] MEDS ORDERED: PROPOFOL IV EMULSION 10 MG/ML 20 ML VIAL IV ONE (18:29)
[2019-10-05] MEDS ORDERED: MIDAZOLAM HCL 1 MG/ML 2ML VIAL IV ONE (18:29)
[2019-10-05 18:49] LABS: Hematocrit (blood only) 31.6 % (37-47); Hemoglobin 10.2 g/dL (12.0-16.0); Mean Corpuscular Hemoglobin 29.9 pg (25-34); Mean Corpuscular Volume 92.7 fL (80-100); Mean Platelet Volume 9.9 fL (7.4-10.4); Platelet Count 273 K/uL (130-400); RDW Coefficient of Variation 14.5 % (11.5-14.5); RDW Standard Deviation 49.4 fL (36.4-46.3); Red Blood Count 3.41 M/uL (4.2-5.4); White Blood Count 14.05 K/uL (4.8-10.8)
[2019-10-05 18:50] LABS: Mean Corpuscular Hgb Conc 32.3 g/dL (32-36)
[2019-10-05 18:59] LABS: INR 1.1 (0.9-1.1); Partial Thromboplastin Ratio 0.9; Prothrombin Time 11.4 Seconds (9.0-12.0)
[2019-10-05 19:14] LABS: Basophils # (auto) 0.02 K/uL (0-0.2); Basophils % (auto) 0.1 %; Eosinophils # (auto) 0.01 K/uL (0-0.5); Eosinophils % (auto) 0.1 %; Immature Granulocytes # (auto) 0.13 K/uL (0.00-0.02); Immature Granulocytes % (auto) 0.9 %; Lymphocytes % (auto) 5.7 %; Monocytes # (auto) 0.33 K/uL (0.11-0.59); Monocytes % (auto) 2.3 %; Neutrophils # (auto) 12.76 K/uL (1.4-6.5); Neutrophils % (auto) 90.9 %
[2019-10-05] MEDS ORDERED: clonazePAM 0.5 MG TAB PO SCH (21:00)
[2019-10-05] MEDS: MoRPHine SULFATE 2 MG/ML CARP IV PRN ×2 (21:10→23:44)
[2019-10-05] MEDS: CEFAZOLIN 1000MG 1,000 MG/7.5 ML SYR IV SCH (21:10)
[2019-10-05] MEDS: CELECOXIB 100 MG CAP PO SCH ×2 (21:51→22:20)
[2019-10-05] MEDS: ASPIRIN 81 MG ECTAB PO SCH ×2 (21:51→22:20)
[2019-10-05] MEDS: ACETAMINOPHEN 500 MG TAB PO SCH ×2 (21:51→22:20)
--- NOTE | 2019-10-05 22:48 | Billing Data ---
Date of Service October 05, 2019 Coding Level of Care Code 14499 Initial Inpt Care Lvl 2
[2019-10-05] MEDS: levETIRAcetam 1,000 MG in 0.9 % SODIUM CHLORIDE 100 ML IV SCH (23:34)
[2019-10-06] MEDS: CEFAZOLIN 1000MG 1,000 MG/7.5 ML SYR IV SCH (04:08)
[2019-10-06] MEDS: ACETAMINOPHEN 500 MG TAB PO SCH ×3 (05:55→20:53)
[2019-10-06 06:15] LABS: Basophils # (auto) 0.02 K/uL (0-0.2); Basophils % (auto) 0.2 %; Eosinophils # (auto) 0.02 K/uL (0-0.5); Eosinophils % (auto) 0.2 %; Hematocrit (blood only) 28.5 % (37-47); Hemoglobin 9.2 g/dL (12.0-16.0); Immature Granulocytes # (auto) 0.12 K/uL (0.00-0.02); Lymphocytes # (auto) 1.26 K/uL (1.2-3.4); Lymphocytes % (auto) 10.6 %; Mean Corpuscular Hemoglobin 29.8 pg (25-34); Mean Corpuscular Hgb Conc 32.3 g/dL (32-36); Mean Corpuscular Volume 92.2 fL (80-100); Mean Platelet Volume 10.1 fL (7.4-10.4); Monocytes # (auto) 0.81 K/uL (0.11-0.59); Monocytes % (auto) 6.8 %; Neutrophils # (auto) 9.69 K/uL (1.4-6.5); Neutrophils % (auto) 81.2 %; Platelet Count 288 K/uL (130-400); RDW Coefficient of Variation 14.8 % (11.5-14.5); RDW Standard Deviation 50.4 fL (36.4-46.3); Red Blood Count 3.09 M/uL (4.2-5.4); White Blood Count 11.92 K/uL (4.8-10.8)
[2019-10-06 06:53] LABS: Albumin Level 2.4 gm/dl (3.4-5.0); BUN Creatinine Ratio 22.7 (10-20); Calcium 8.8 mg/dl (8.5-10.1); Creatinine Clr Calc Pharmacy 34.4 ml/min; Est GFR (African American) 54.7; Est GFR (Non-African American) 47.2; Magnesium 1.9 mg/dl (1.8-2.4); Potassium 5.1 mmol/L (3.5-5.1)
[2019-10-06 06:56] LABS: Albumin Globulin Ratio 0.7 (0.9-2); Bilirubin,Total 0.3 mg/dl (0.2-1); Globulin 3.3 gm/dl (2.5-4.0); Phosphorus 4.2 mg/dl (2.5-4.9); Total Protein 5.7 gm/dl (6.4-8.2)
[2019-10-06] MEDS: levETIRAcetam 1,000 MG in 0.9 % SODIUM CHLORIDE 100 ML IV SCH ×2 (10:30→22:13)
[2019-10-06] MEDS: ASPIRIN 81 MG ECTAB PO SCH ×2 (10:34→20:53)
[2019-10-06] MEDS: THIAMINE HCL 50 MG TABLET PO SCH (10:35)
[2019-10-06] MEDS: METOPROLOL TARTRATE 25 MG TAB PO SCH (10:35)
[2019-10-06] MEDS: ATORVASTATIN 10 MG TAB PO SCH (10:35)
[2019-10-06] MEDS: MoRPHine SULFATE 2 MG/ML CARP IV PRN ×2 (10:38→14:15)
--- NOTE | 2019-10-06 12:30 | Hospitalist Progress Note ---
Date of Service October 06, 2019 Assessment & Plan (1) Subcapital fracture of left femur: 83 female with recent history status epilepticus secondary to acute CVA requiring intubation and sedation, discharged from [facility] 10/02, presented with left femur fx * Hip/Pelvis XR demonstrated distracted and subacute appearing subcapital fracture of the left femur-->uncertain timeline of when fracture occurred or exact mechanism, without recent history of fall or signs of local ecchymosis would presume that this is 2/2 seizure. * Pathological fracture possible, but more likely secondary to recent seizures. Vit D level borderline low normal * Orthopaedic surgery consulted -- appreciate assistance * POD #1 s/p LEFT bipolar hemiarthroplasty with Dr. Lama. Pre-op h/h 9.4/29.7 * Patient was hypothermic post-op. Ordered bear guadalupe. Temp wnl today. * H/h dropped to 8.8/27.6 post-op and patient received 1 unit PRBC * H/h this morning low but stable at 9.2/28.5 * Pain management with tramadol, tylenol * Continue PT/OT per ortho * CBC in AM (2) Status epilepticus: * Recently discharged from [facility] following prolonged seizure thought to be secondary prior strokes * Continue keppra 100mg PO BID * Of note, patient discharged from [facility] on Augmentin to be continued until 10/04 for aspiration pneumonia -- received abx perioperatively * If patient becomes febrile or s/sx infection, low threshold for repeat CXR. Currenlty 93% on RA (3) CVA (cerebral vascular accident): * Hx several CVAs, most recent last week * Patient non-verbal at baseline * Continue home atorvastatin 10mg, metoprolol 25mg * Not on ASA outpatient (4) Dementia: * patient non-verbal at baseline * functional status declined significantly over the last several years according to family * patient does pivot to chair --> per discussion between ortho/family, will proceed to OR to preserve this (5) Chronic diastolic (congestive) heart failure: * s/p aortic valve replacement September 2014, bioprosthetic * Most recent ECHO September 2018 with severe LVH, normal LV systolic function, mildly dilated LA, mild/mod SD, mild MR * Continue home metoprolol 25mg PO daily * Not on JAVY/ARB/spironolactone at this time * Daily weights, I&O * Continue to monitor for s/sx volume overload (6) DVT prophylaxis: * ASA 81mg BID * SCDs Dispo: patient from home. Will need CM assistance to set up caregivers/home health upon discharge Admission and Anticipated Discharge Date Admission Date: October 04, 2019 Supervising Physician Co-Signing Physician Notes Attending Attestation - Chart reviewed, care plan d/w PHILLIP Moody. I agree w/ the gaines components of her documentation. Had post-op hypothermia following ORIF of left hip fracture that resolved with external warmer. Additionally received 1 unit of PRBCs for ACUTE BLOOD LOSS ANEMIA. Has baseline CKD stage 3 - minimal rise in creatinine overnight. Cont supportive care. seizure d/o - continue keppra. dementia with superimposed encephalopathy - supportive care; avoid sedatives. dispo planning. Ryland Thornton MD Subjective Patient evaluated this morning. Does not answer questions appropriately due to cognitive status. Arouses to painful stimuli. Patient grimaces when touching hip. Per nursing, medicated this morning with morphine. Resting comfortably in bed. Review of Systems Review of Systems: Unobtainable due to cognitive status Physical Exam Constitutional: WD/WN, vitals as above Eyes: PERRL, conjunctivae normal, anicteric sclerae ENMT: external ear and nose normal, oropharynx normal Neck: normal visual inspection Respiratory: normal respiratory effort, lungs clear to auscultation Cardiovascular: Rate/Rhythm: regular rate and regular rhythm Heart Sounds: normal S1, normal S2 and + murmur (Systolic ejection murmur best appreciated RUSB); no gallop and no cardiac rub Extremities: + edema (L lower extremity) Gastrointestinal (Abdomen): normal bowel sounds, soft, nontender, no h epatosplenomegaly Musculoskeletal: LEFT hip dressing c/d/i. Minimal edema left thigh. Calves non-tender to palpation. NVI, 2+ dp, pt pulses bilaterally Skin: no rashes, warm and dry Neurologic: patellar DTR's 2+ bilat, sensation intact Psychiatric: Apperance: + disheveled Eye Contact: + poor eye contact Speech: + mute Lymphatic: no cervical or axillary lymphadenopathy Results & Data Results & Data ([facility]) Vital Signs (Past 12 Hours) Vital Signs Temp Pulse Pulse Pulse Resp BP Pulse Ox 10/06/19 07:44 74 10/06/19 07:26 36.4 C L 104 H 18 102/51 L 94 10/06/19 03:00 35.7 C L 89 20 110/60 94 Laboratory Results 10/06/19 10/06/19 10/05/19 Range/Units 05:25 05:25 18:41 WBC 11.92 H (4.8-10.8) K/uL RBC 3.09 L (4.2-5.4) M/uL Hgb 9.2 L (12.0-16.0) g/dL Hct 28.5 L (37-47) % MCV 92.2 (80-100) fL MCH 29.8 (25-34) pg MCHC 32.3 (32-36) g/dL RDW Std Deviation 50.4 H (36.4-46.3) fL RDW Coeff of [place] 14.8 H (11.5-14.5) % Plt Count 288 (130-400) K/uL MPV 10.1 (7.4-10.4) fL Immature Gran % (Auto) 1.0 % Neut % (Auto) 81.2 % Lymph % (Auto) 10.6 % [place] % (Auto) 6.8 % Eos % (Auto) 0.2 % Baso % (Auto) 0.2 % Immature Gran # (Auto) 0.12 H (0.00-0.02) K/uL Neut # (Auto) 9.69 H (1.4-6.5) K/uL Lymph # (Auto) 1.26 (1.2-3.4) K/uL [place] # (Auto) 0.81 H (0.11-0.59) K/uL Eos # (Auto) 0.02 (0-0.5) K/uL Baso # (Auto) 0.02 (0-0.2) K/uL PT 11.4 (9.0-12.0) Seconds INR 1.1 (0.9-1.1) APTT 24.0 (21.0-31.0) Seconds PTT Ratio 0.9 Sodium 143 (136-145) mmol/L Potassium 5.1 D (3.5-5.1) mmol/L Chloride 108 H (98-107) mmol/L Carbon Dioxide 29 (21-32) mmol/L Anion Gap 6.0 (3-11) BUN 25 H (7-18) mg/dl Creatinine 1.09 (0.6-1.2) mg/dl Est Cr Clr Drug Dosing 34.4 ml/min Est GFR ( Amer) 54.7 Est GFR (Non-Af Amer) 47.2 BUN/Creatinine Ratio 22.7 H (10-20) Glucose 113 H (70-99) mg/dl POC Glucose (70-99) mg/dl Calcium 8.8 (8.5-10.1) mg/dl Phosphorus 4.2 D (2.5-4.9) mg/dl Magnesium 1.9 (1.8-2.4) mg/dl Total Bilirubin 0.3 (0.2-1) mg/dl AST 32 (15-37) U/L ALT 26 (12-78) U/L Alkaline Phosphatase 93 (45-117) U/L Total Protein 5.7 L (6.4-8.2) gm/dl Albumin 2.4 L (3.4-5.0) gm/dl Globulin 3.3 (2.5-4.0) gm/dl Albumin/Globulin Ratio 0.7 L (0.9-2) 25-OH Vitamin D Total (30-100) ng/ml Blood Type Antibody Screen Crossmatch 10/05/19 10/05/19 10/05/19 Range/Units 18:41 17:29 17:29 WBC 14.05 H (4.8-10.8) K/uL RBC 3.41 L (4.2-5.4) M/uL Hgb 10.2 L 10.3 L (12.0-16.0) g/dL Hct 31.6 L 33.0 L (37-47) % MCV 92.7 (80-100) fL MCH 29.9 (25-34) pg MCHC 32.3 (32-36) g/dL RDW Std Deviation 49.4 H (36.4-46.3) fL RDW Coeff of [place] 14.5 (11.5-14.5) % Plt Count 273 (130-400) K/uL MPV 9.9 (7.4-10.4) fL Immature Gran % (Auto) 0.9 % Neut % (Auto) 90.9 % Lymph % (Auto) 5.7 % [place] % (Auto) 2.3 % Eos % (Auto) 0.1 % Baso % (Auto) 0.1 % Immature Gran # (Auto) 0.13 H (0.00-0.02) K/uL Neut # (Auto) 12.76 H (1.4-6.5) K/uL Lymph # (Auto) 0.80 L (1.2-3.4) K/uL [place] # (Auto) 0.33 (0.11-0.59) K/uL Eos # (Auto) 0.01 (0-0.5) K/uL Baso # (Auto) 0.02 (0-0.2) K/uL PT (9.0-12.0) Seconds INR (0.9-1.1) APTT (21.0-31.0) Seconds PTT Ratio Sodium (136-145) mmol/L Potassium (3.5-5.1) mmol/L Chloride (98-107) mmol/L Carbon Dioxide (21-32) mmol/L Anion Gap (3-11) BUN (7-18) mg/dl Creatinine (0.6-1.2) mg/dl Est Cr Clr Drug Dosing ml/min Est GFR ( Amer) Est GFR (Non-Af Amer) BUN/Creatinine Ratio (10-20) Glucose (70-99) mg/dl POC Glucose (70-99) mg/dl Calcium (8.5-10.1) mg/dl Phosphorus (2.5-4.9) mg/dl Magnesium (1.8-2.4) mg/dl Total Bilirubin (0.2-1) mg/dl AST (15-37) U/L ALT (12-78) U/L Alkaline Phosphatase (45-117) U/L Total Protein (6.4-8.2) gm/dl Albumin (3.4-5.0) gm/dl Globulin (2.5-4.0) gm/dl Albumin/Globulin Ratio (0.9-2) 25-OH Vitamin D Total 41.3 (30-100) ng/ml Blood Type Antibody Screen Crossmatch 10/05/19 10/04/19 Range/Units 16:46 19:46 WBC (4.8-10.8) K/uL RBC (4.2-5.4) M/uL Hgb (12.0-16.0) g/dL Hct (37-47) % MCV (80-100) fL MCH (25-34) pg MCHC (32-36) g/dL RDW Std Deviation (36.4-46.3) fL RDW Coeff of [place] (11.5-14.5) % Plt Count (130-400) K/uL MPV (7.4-10.4) fL Immature Gran % (Auto) % Neut % (Auto) % Lymph % (Auto) % [place] % (Auto) % Eos % (Auto) % Baso % (Auto) % Immature Gran # (Auto) (0.00-0.02) K/uL Neut # (Auto) (1.4-6.5) K/uL Lymph # (Auto) (1.2-3.4) K/uL [place] # (Auto) (0.11-0.59) K/uL Eos # (Auto) (0-0.5) K/uL Baso # (Auto) (0-0.2) K/uL PT (9.0-12.0) Seconds INR (0.9-1.1) APTT (21.0-31.0) Seconds PTT Ratio Sodium (136-145) mmol/L Potassium (3.5-5.1) mmol/L Chloride (98-107) mmol/L Carbon Dioxide (21-32) mmol/L Anion Gap (3-11) BUN (7-18) mg/dl Creatinine (0.6-1.2) mg/dl Est Cr Clr Drug Dosing ml/min Est GFR ( Amer) Est GFR (Non-Af Amer) BUN/Creatinine Ratio (10-20) Glucose (70-99) mg/dl POC Glucose 166 H (70-99) mg/dl Calcium (8.5-10.1) mg/dl Phosphorus (2.5-4.9) mg/dl Magnesium (1.8-2.4) mg/dl Total Bilirubin (0.2-1) mg/dl AST (15-37) U/L ALT (12-78) U/L Alkaline Phosphatase (45-117) U/L Total Protein (6.4-8.2) gm/dl Albumin (3.4-5.0) gm/dl Globulin (2.5-4.0) gm/dl Albumin/Globulin Ratio (0.9-2) 25-OH Vitamin D Total (30-100) ng/ml Blood Type A Positive Antibody Screen NEGATIVE Crossmatch See Detail PG Care Time/CCT Total # of Minutes Spent Total Time Spent with Patient: Total time spent is greater than 50% in coordination of care (as documented) at patient's floor/unit and/or counseling patient: Coding Level of Care Code 63185 Subseq Hosp Care Lvl 2 Diagnoses Subcapital fracture of left femur S72.012A Encounter type: initial encounter Fracture type: closed Status epilepticus G40.901 CVA (cerebral vascular accident) I63.9 Dementia F03.90 Dementia behavioral disturbance: without behavioral disturbance Dementia type: unspecified type Chronic diastolic (congestive) heart failure I50.32 DVT prophylaxis Z29.9 (1) Dementia Dementia behavioral disturbance: without behavioral disturbance Dementia type: unspecified type Qualified Code(s): F03.90 - Unspecified dementia without behavioral disturbance (2) Subcapital fracture of left femur Encounter type: initial encounter Fracture type: closed Qualified Code(s): S72.012A - Unspecified intracapsular fracture of left femur, initial encounter for closed fracture
--- NOTE | 2019-10-06 12:40 | Orthopedic Progress Note ---
Date of Service October 06, 2019 Assessment & Plan (1) Subcapital fracture of left femur: POD 1 s/p Left Bipolar Hemiarthroplasty. PT/OT as able. Can be WBAT on LLE. Hip precautions. Abduction pillow btw legs while in bed. DVT proph- ASA bid, SCDs Pain management - Tramadol, Hydromorphone Admission and Anticipated Discharge Date Admission Date: October 04, 2019 Subjective Sleeping upon entering the room. Arousable but falls back asleep quickly. Appears to be comfortable. Physical Exam Physical Exam: Dressings C/D/I. Thigh with mild swelling but soft. Calves soft, appear NT. Results & Data ([facility]) Vital Signs (Past 12 Hours) Vital Signs Temp Pulse Pulse Pulse Resp BP Pulse Ox 10/06/19 07:44 74 10/06/19 07:26 36.4 C L 104 H 18 102/51 L 94 10/06/19 03:00 35.7 C L 89 20 110/60 94 Laboratory Results Laboratory Results WBC 11.92 K/uL (4.8-10.8) H 10/06/19 05:25 RBC 3.09 M/uL (4.2-5.4) L 10/06/19 05:25 Hgb 9.2 g/dL (12.0-16.0) L 10/06/19 05:25 POC Hgb 8.2 g/dl (12.0-16.0) L 10/05/19 14:24 Hct 28.5 % (37-47) L 10/06/19 05:25 POC Hct 24 % (37-47) L 10/05/19 14:24 MCV 92.2 fL (80-100) 10/06/19 05:25 MCH 29.8 pg (25-34) 10/06/19 05:25 MCHC 32.3 g/dL (32-36) 10/06/19 05:25 RDW Std Deviation 50.4 fL (36.4-46.3) H 10/06/19 05:25 RDW Coeff of [place] 14.8 % (11.5-14.5) H 10/06/19 05:25 Plt Count 288 K/uL (130-400) 10/06/19 05:25 MPV 10.1 fL (7.4-10.4) 10/06/19 05:25 Immature Gran % (Auto) 1.0 % 10/06/19 05:25 Neut % (Auto) 81.2 % 10/06/19 05:25 Lymph % (Auto) 10.6 % 10/06/19 05:25 [place] % (Auto) 6.8 % 10/06/19 05:25 Eos % (Auto) 0.2 % 10/06/19 05:25 Baso % (Auto) 0.2 % 10/06/19 05:25 Immature Gran # (Auto) 0.12 K/uL (0.00-0.02) H 10/06/19 05:25 Neut # (Auto) 9.69 K/uL (1.4-6.5) H 10/06/19 05:25 Lymph # (Auto) 1.26 K/uL (1.2-3.4) 10/06/19 05:25 [place] # (Auto) 0.81 K/uL (0.11-0.59) H 10/06/19 05:25 Eos # (Auto) 0.02 K/uL (0-0.5) 10/06/19 05:25 Baso # (Auto) 0.02 K/uL (0-0.2) 10/06/19 05:25 PT 11.4 Seconds (9.0-12.0) 10/05/19 18:41 INR 1.1 (0.9-1.1) 10/05/19 18:41 APTT 24.0 Seconds (21.0-31.0) 10/05/19 18:41 PTT Ratio 0.9 10/05/19 18:41 POC pH 7.41 (7.35-7.45) 10/05/19 14:24 POC pCO2 48 mmHg (35-46) H 10/05/19 14:24 POC pO2 349 mmHg (80-95) H 10/05/19 14:24 POC HCO3 30 jackie/L (19-24) H 10/05/19 14:24 POC Total CO2 32 mmol/L (24-31) H 10/05/19 14:24 POC Base Excess 6.0 jackie/L (-9-1.8) H 10/05/19 14:24 POC ABG O2 Sat 100.0 % (90-95) H 10/05/19 14:24 POC Sodium 139 mmol/L (135-144) 10/05/19 14:24 Sodium 143 mmol/L (136-145) 10/06/19 05:25 POC Potassium 4.2 mmol/L (3.3-5.0) 10/05/19 14:24 Potassium 5.1 mmol/L (3.5-5.1) D 10/06/19 05:25 Chloride 108 mmol/L (98-107) H 10/06/19 05:25 Carbon Dioxide 29 mmol/L (21-32) 10/06/19 05:25 Anion Gap 6.0 (3-11) 10/06/19 05:25 BUN 25 mg/dl (7-18) H 10/06/19 05:25 Creatinine 1.09 mg/dl (0.6-1.2) 10/06/19 05:25 Est Cr Clr Drug Dosing 34.4 ml/min 10/06/19 05:25 Est GFR ( Amer) 54.7 10/06/19 05:25 Est GFR (Non-Af Amer) 47.2 10/06/19 05:25 BUN/Creatinine Ratio 22.7 (10-20) H 10/06/19 05:25 Glucose 113 mg/dl (70-99) H 10/06/19 05:25 POC Glucose 166 mg/dl (70-99) H 10/05/19 16:46 Calcium 8.8 mg/dl (8.5-10.1) 10/06/19 05:25 Phosphorus 4.2 mg/dl (2.5-4.9) D 10/06/19 05:25 Magnesium 1.9 mg/dl (1.8-2.4) 10/06/19 05:25 Total Bilirubin 0.3 mg/dl (0.2-1) 10/06/19 05:25 AST 32 U/L (15-37) 10/06/19 05:25 ALT 26 U/L (12-78) 10/06/19 05:25 Alkaline Phosphatase 93 U/L (45-117) 10/06/19 05:25 Total Protein 5.7 gm/dl (6.4-8.2) L 10/06/19 05:25 Albumin 2.4 gm/dl (3.4-5.0) L 10/06/19 05:25 Globulin 3.3 gm/dl (2.5-4.0) 10/06/19 05:25 Albumin/Globulin Ratio 0.7 (0.9-2) L 10/06/19 05:25 25-OH Vitamin D Total 41.3 ng/ml (30-100) 10/05/19 17:29 Urine Color Yellow 10/04/19 20:22 Urine Appearance Clear (Clear) 10/04/19 20:22 Urine pH 6.5 (4.5-7.5) 10/04/19 20:22 Ur Specific [place] 1.018 (1.000-1.030) 10/04/19 20:22 Urine Protein Trace (Negative) H 10/04/19 20:22 Urine Glucose (UA) Negative (Negative) 10/04/19 20:22 Urine Ketones Negative (Negative) 10/04/19 20:22 Urine Blood Negative (Negative) 10/04/19 20:22 Urine Nitrite Negative (Negative) 10/04/19 20: Urine Bilirubin Negative (Negative) 10/04/19 20:22 Urine Urobilinogen Negative (Negative) 10/04/19 20:22 Ur Leukocyte Esterase Negative (Negative) 10/04/19 20:22 Urine WBC (Auto) 1-5 /hpf (0-5) 10/04/19 20:22 Urine RBC (Auto) 0-4 /hpf (0-4) 10/04/19 20:22 U Hyaline Cast (Auto) 1-5 /lpf (0-5) 10/04/19 20:22 U Epithel Cells (Auto) >30 /lpf (0-5) H 10/04/19 20:22 Urine Bacteria (Auto) Negative (Negative) 10/04/19 20:22 Blood Type A Positive 10/04/19 19:46 Blood Type Recheck A Positive 10/05/19 05:59 Antibody Screen NEGATIVE 10/04/19 19:46 Crossmatch See Detail 10/04/19 19:46 (1) Subcapital fracture of left femur Encounter type: initial encounter Fracture type: closed Qualified Code(s): S72.012A - Unspecified intracapsular fracture of left femur, initial encounter for closed fracture
[2019-10-06] MEDS: CELECOXIB 100 MG CAP PO SCH (20:53)
[2019-10-07] MEDS: TRAMADOL HCL 50 MG TABLET PO PRN (03:31)
[2019-10-07] MEDS: ACETAMINOPHEN 500 MG TAB PO SCH ×3 (05:19→20:52)
[2019-10-07] MEDS: MoRPHine SULFATE 2 MG/ML CARP IV PRN (05:54)
[2019-10-07] MEDS: ATORVASTATIN 10 MG TAB PO SCH (09:58)
[2019-10-07] MEDS: ASPIRIN 81 MG ECTAB PO SCH ×2 (09:58→20:52)
[2019-10-07] MEDS: METOPROLOL TARTRATE 25 MG TAB PO SCH (09:59)
[2019-10-07] MEDS: THIAMINE HCL 50 MG TABLET PO SCH (09:59)
--- NOTE | 2019-10-07 10:20 | Orthopedic Progress Note ---
Date of Service October 07, 2019 Assessment & Plan (1) Subcapital fracture of left femur: POD 2 s/p Left Bipolar Hemiarthroplasty. PT/OT as able. Can be WBAT on LLE. Hip precautions. Abduction pillow btw legs while in bed. DVT proph- ASA bid, SCDs Pain management - Tramadol, Hydromorphone Will continue to monitor, stable from ortho for discharge when cleared by medicine Admission and Anticipated Discharge Date Admission Date: October 04, 2019 Subjective Sleeping upon entering the room. Arousable but does not want to stay awake. She appears to be resting comfortably. Physical Exam Physical Exam: Toes mobile, NVI. Calves soft, non tender. incision is clean and dry. Dressing in place. Results & Data ([facility]) Vital Signs (Past 12 Hours) Vital Signs Temp Pulse Pulse Resp BP Pulse Ox 10/07/19 07:40 72 10/07/19 07:29 37.2 C 80 18 131/68 94 10/07/19 04:00 84 18 119/61 95 10/07/19 02:10 72 10/07/19 02:08 37.4 C 10/06/19 23:01 37.7 C H 83 18 127/67 94 (1) Subcapital fracture of left femur Encounter type: initial encounter Fracture type: closed Qualified Code(s): S72.012A - Unspecified intracapsular fracture of left femur, initial encounter for closed fracture
[2019-10-07] MEDS: levETIRAcetam 1,000 MG in 0.9 % SODIUM CHLORIDE 100 ML IV SCH ×2 (11:01→22:18)
--- NOTE | 2019-10-07 15:55 | Hospitalist Progress Note ---
Date of Service October 07, 2019 Assessment & Plan (1) Subcapital fracture of left femur: - Hip/Pelvis XR Left subbcapital fx s/p surgical fixation by Dr. Lama on 10/05/19 - unknown time or exact mechanism how occurred, without recent history of fall or signs of local ecchymosis would presume that this is 2/2 seizure. - Ortho on board- appreciate recs - Post op events included hypothermia which was corrected with koko hugger. - Pain management with tylenol and tramadol - PT/OT (2) Postoperative anemia: - H&H stable s/p 1 unit PRBC, Hgb 9.2 and HCT 28.5, am labs (3) Status epilepticus: - Recently discharged from [facility] following prolonged seizure thought to be secondary prior strokes - Continue keppra 100mg PO BID (4) CVA (cerebral vascular accident): - Hx several CVAs, most recent last week - Patient non-verbal at baseline - Continue home atorvastatin 10mg, metoprolol 25mg - Not on ASA outpatient (5) Dementia: - patient non-verbal at baseline - functional status declined significantly over the last several years according to family - patient does pivot to chair, went to OR to preserve this, PT/OT c/s. (6) Chronic diastolic (congestive) heart failure: - s/p aortic valve replacement September 2014, bioprosthetic - ECHO September 2018 with severe LVH, normal LV systolic function, mildly dilated LA, mild/mod IA, mild MR - Continue home metoprolol 25mg PO daily - Not on JAVY/ARB/spironolactone at this time - Daily weights, I&O - Euvolemic on exam (7) DVT prophylaxis: - scds, ASA 81mg BID Dispo: patient from home. Will need CM assistance to set up caregivers/home health upon discharge Admission and Anticipated Discharge Date Admission Date: October 04, 2019 Subjective The patient was seen and examined this morning. Pt is nonverbal but sits up a few times at bedside to reach and get a drink of boost and water. She appears comfortable, NAD. Review of Systems Review of Systems: Other (Unable to obtain due to nonverbal) Physical Exam Physical Exam: General: awake, alert, no apparent distress Head: Normocephalic, atraumatic ENT: PERRL, EOMI, no pharyngeal exudate, mucous membranes moist Chest: Clear to auscultation, on room air, no adventitious breath sounds Cardiac: Regular rate and rhythm, no murmur, no JVD, normal peripheral pulses, good capillary refill Abdominal: NABS x 4 quadrants, soft,nondistended, nontender to palpation, no rebound, guarding or tenderness Extremities: R hip bandage c/d/i, foam wedge between legs holding in place, otherwise normal inspection, no peripheral edema or erythema, calfs nontender to palpation Psych: Normal mood and affect Neuro: AAO x 3, no gross motor deficits, nonverbal, no peripheral sensory deficits Results & Data Results & Data ([facility]) Vital Signs (Past 12 Hours) Vital Signs Temp Pulse Pulse Resp BP BP Pulse Ox 10/07/19 15:03 36.4 C L 79 18 149/71 H 95 10/07/19 11:21 36.8 C 69 18 114/59 L 94 10/07/19 07:40 72 10/07/19 07:29 37.2 C 80 18 131/68 94 10/07/19 04:00 84 18 119/61 95 PG Care Time/CCT Total # of Minutes Spent Total Time Spent with Patient: Total time spent is greater than 50% in coordination of care (as documented) at patient's floor/unit and/or counseling patient: Coding Level of Care Code 70615 Inpt Consult Level 3 Diagnoses Subcapital fracture of left femur S72.012A Encounter type: initial encounter Fracture type: closed Postoperative anemia D64.9 Status epilepticus G40.901 CVA (cerebral vascular accident) I63.9 Dementia F03.90 Dementia behavioral disturbance: without behavioral disturbance Dementia type: unspecified type Chronic diastolic (congestive) heart failure I50.32 DVT prophylaxis Z29.9 (1) Subcapital fracture of left femur Encounter type: initial encounter Fracture type: closed Qualified Code(s): S72.012A - Unspecified intracapsular fracture of left femur, initial encounter for closed fracture (2) Dementia Dementia behavioral disturbance: without behavioral disturbance Dementia type: unspecified type Qualified Code(s): F03.90 - Unspecified dementia without behavioral disturbance
[2019-10-07] MEDS: CELECOXIB 100 MG CAP PO SCH (20:52)
[2019-10-08] MEDS: ACETAMINOPHEN 500 MG TAB PO SCH ×5 (05:32→20:54)
[2019-10-08 07:12] LABS: Hematocrit (blood only) 24.7 % (37-47); Mean Corpuscular Hemoglobin 30.4 pg (25-34); Mean Corpuscular Hgb Conc 32.4 g/dL (32-36); Mean Corpuscular Volume 93.9 fL (80-100); Mean Platelet Volume 9.8 fL (7.4-10.4); Platelet Count 292 K/uL (130-400); RDW Coefficient of Variation 14.4 % (11.5-14.5); RDW Standard Deviation 49.2 fL (36.4-46.3); Red Blood Count 2.63 M/uL (4.2-5.4); White Blood Count 10.18 K/uL (4.8-10.8)
[2019-10-08 07:53] LABS: BUN Creatinine Ratio 32.7 (10-20); Creatinine Clr Calc Pharmacy 46.8 ml/min; Est GFR (African American) 79.6; Est GFR (Non-African American) 68.7; Potassium 4.2 mmol/L (3.5-5.1)
--- NOTE | 2019-10-08 09:21 | Orthopedic Progress Note ---
Date of Service October 08, 2019 Assessment & Plan (1) Subcapital fracture of left femur: POD 3 s/p Left Bipolar Hemiarthroplasty. PT/OT as able. Can be WBAT on LLE. Hip precautions. Abduction pillow btw legs while in bed. DVT proph- ASA bid, SCDs Pain management - Tramadol, Hydromorphone Stable from ortho standpoint. DC instructions in chart. Staple removal at 10- 14 days. Ortho will sign off, available if needed. Admission and Anticipated Discharge Date Admission Date: October 04, 2019 Subjective Patient sitting in bed eating breakfast comfortably. Unable to answer questions but appears in no distress. Physical Exam Physical Exam: Toes mobile, NVI. Calves soft, non tender. Dressing in place. Results & Data ([facility]) Vital Signs (Past 12 Hours) Vital Signs Temp Pulse Pulse Resp BP Pulse Ox 10/08/19 07:56 88 10/08/19 07:23 36.5 C 66 18 149/67 H 97 10/08/19 03:49 37.0 C 80 18 120/68 92 10/08/19 00:11 36.9 C 89 20 144/73 H 96 10/07/19 23:06 80 (1) Subcapital fracture of left femur Encounter type: initial encounter Fracture type: closed Qualified Code(s): S72.012A - Unspecified intracapsular fracture of left femur, initial encounter for closed fracture
[2019-10-08] MEDS: THIAMINE HCL 50 MG TABLET PO SCH (10:32)
[2019-10-08] MEDS: ATORVASTATIN 10 MG TAB PO SCH (10:32)
[2019-10-08] MEDS: METOPROLOL TARTRATE 25 MG TAB PO SCH (10:33)
[2019-10-08] MEDS: levETIRAcetam 1,000 MG in 0.9 % SODIUM CHLORIDE 100 ML IV SCH (10:34)
[2019-10-08] MEDS: ASPIRIN 81 MG ECTAB PO SCH ×2 (10:42→20:48)
--- NOTE | 2019-10-08 11:47 | Hospitalist Progress Note ---
Date of Service October 08, 2019 Assessment & Plan (1) Subcapital fracture of left femur: - Hip/Pelvis XR Left subcapital fx s/p surgical fixation by Dr. Lama on 10/05/19 - unknown time or exact mechanism how occurred, without recent history of fall or signs of local ecchymosis would presume that this is 2/2 seizure. - Ortho on board- appreciate recs - Post op events included hypothermia which was corrected with koko hugger. - Pain management with tylenol and tramadol - PT/OT * H/h low at 8.0/24.7 -- will start on oral iron supplementation. * Transfuse 1 unit PRBC. Will give lasix to avoid overload * H/h in AM (2) Postoperative anemia: - H&H low at 8/24.7 (3) Status epilepticus: - Recently discharged from [facility] following prolonged seizure thought to be secondary prior strokes - Continue keppra 100mg PO BID -- switched back to PO. Had previously been IV as patient was too lethargic post-operatively to take oral (4) CVA (cerebral vascular accident): - Hx several CVAs, most recent last week - Patient non-verbal at baseline - Continue home atorvastatin 10mg, metoprolol 25mg - Not on ASA outpatient (5) Dementia: - patient non-verbal at baseline - functional status declined significantly over the last several years according to family - patient does pivot to chair, went to OR to preserve this, PT/OT c/s. (6) Chronic diastolic (congestive) heart failure: - s/p aortic valve replacement September 2014, bioprosthetic - ECHO September 2018 with severe LVH, normal LV systolic function, mildly dilated LA, mild/mod ID, mild MR - Continue home metoprolol 25mg PO daily - Not on JAVY/ARB/spironolactone at this time - Daily weights, I&O - Euvolemic on exam -- up from admission weight. expect that to be causing elevation in bun/cr (7) DVT prophylaxis: - SCDs, ASA 81mg BID Dispo: patient from home. Hopeful for discharge in AM if h/h improved Admission and Anticipated Discharge Date Admission Date: October 04, 2019 Subjective Patient resting in bed. Calls out at times. Does not appear in acute distress. Eating breakfast. Per nursing, patient does call out at times and family states this is not unusua l for her at baseline. Plans to monitor h/h and possible discharge home with family tomorrow. Review of Systems Review of Systems: Unobtainable due to cognitive status Physical Exam Constitutional: WD/WN, vitals as above Eyes: PERRL, conjunctivae normal, anicteric sclerae ENMT: external ear and nose normal, oropharynx normal Neck: normal visual inspection Respiratory: normal respiratory effort, lungs clear to auscultation Cardiovascular: Rate/Rhythm: regular rate and regular rhythm Heart Sounds: normal S1, normal S2 and + murmur (Systolic ejection murmur best appreciated RUSB); no gallop and no cardiac rub Extremities: + edema (L lower extremity) Gastrointestinal (Abdomen): normal bowel sounds, soft, nontender, no hepatosplenomegaly Musculoskeletal: LEFT hip dressing c/d/i. Adductor pillow between legs. Calves non-tender to palpation. NVI, 2+ dp, pt pulses bilaterally Hematoma to L hip, non-tender to palpation Skin: no rashes, warm and dry Neurologic: patellar DTR's 2+ bilat, sensation intact Psychiatric: Orientation: alert; + not oriented x 3 Lymphatic: no cervical or axillary lymphadenopathy Results & Data Results & Data ([facility]) Vital Signs (Past 12 Hours) Vital Signs Temp Pulse Pulse Resp BP Pulse Ox 10/08/19 11:30 36.2 C L 78 18 139/66 95 10/08/19 07:56 88 10/08/19 07:23 36.5 C 66 18 149/67 H 97 10/08/19 03:49 37.0 C 80 18 120/68 92 10/08/19 00:11 36.9 C 89 20 144/73 H 96 Laboratory Results 10/08/19 10/08/19 Range/Units 06:19 06:19 WBC 10.18 (4.8-10.8) K/uL RBC 2.63 L (4.2-5.4) M/uL Hgb 8.0 L (12.0-16.0) g/dL Hct 24.7 L (37-47) % MCV 93.9 (80-100) fL MCH 30.4 (25-34) pg MCHC 32.4 (32-36) g/dL RDW Std Deviation 49.2 H (36.4-46.3) fL RDW Coeff of [place] 14.4 (11.5-14.5) % Plt Count 292 (130-400) K/uL MPV 9.8 (7.4-10.4) fL Sodium 144 (136-145) mmol/L Potassium 4.2 (3.5-5.1) mmol/L Chloride 110 H (98-107) mmol/L Carbon Dioxide 27 (21-32) mmol/L Anion Gap 7.0 (3-11) BUN 26 H (7-18) mg/dl Creatinine 0.80 (0.6-1.2) mg/dl Est Cr Clr Drug Dosing 46.8 ml/min Est GFR ( Amer) 79.6 Est GFR (Non-Af Amer) 68.7 BUN/Creatinine Ratio 32.7 H (10-20) Glucose 106 H (70-99) mg/dl Calcium 9.0 (8.5-10.1) mg/dl PG Care Time/CCT Total # of Minutes Spent Total Time Spent with Patient: Total time spent is greater than 50% in coordination of care (as documented) at patient's floor/unit and/or counseling patient: Coding Level of Care Code 96986 Subseq Hosp Care Lvl 2 Diagnoses Subcapital fracture of left femur S72.012A Encounter type: initial encounter Fracture type: closed Postoperative anemia D64.9 Status epilepticus G40.901 CVA (cerebral vascular accident) I63.9 Dementia F03.90 Dementia behavioral disturbance: without behavioral disturbance Dementia type: unspecified type Chronic diastolic (congestive) heart failure I50.32 DVT prophylaxis Z29.9 (1) Dementia Dementia behavioral disturbance: without behavioral disturbance Dementia type: unspecified type Qualified Code(s): F03.90 - Unspecified dementia without behavioral disturbance (2) Subcapital fracture of left femur Encounter type: initial encounter Fracture type: closed Qualified Code(s): S72.012A - Unspecified intracapsular fracture of left femur, initial encounter for closed fracture
[2019-10-08] MEDS ORDERED: SODIUM CHLORIDE 0.9% 250 ML IV PRN (13:58)
[2019-10-08] MEDS ORDERED: FUROSEMIDE 10 MG in SYRINGE 0 ML IV SCH (14:00)
[2019-10-08] MEDS: FERROUS SULFATE 325 MG TAB PO SCH (16:13)
[2019-10-08] MEDS: TRAMADOL HCL 50 MG TABLET PO PRN (16:13)
[2019-10-08] MEDS: CELECOXIB 100 MG CAP PO SCH (20:48)
[2019-10-08] MEDS: MoRPHine SULFATE 2 MG/ML CARP IV PRN (20:49)
[2019-10-09] MEDS: ACETAMINOPHEN 500 MG TAB PO SCH ×2 (05:29→13:00)
[2019-10-09 05:42] LABS: Hematocrit (blood only) 27.2 % (37-47); Hemoglobin 8.7 g/dL (12.0-16.0); Mean Corpuscular Hemoglobin 29.3 pg (25-34); Mean Corpuscular Volume 91.6 fL (80-100); Mean Platelet Volume 9.9 fL (7.4-10.4); Platelet Count 262 K/uL (130-400); RDW Coefficient of Variation 14.7 % (11.5-14.5); RDW Standard Deviation 49.3 fL (36.4-46.3); Red Blood Count 2.97 M/uL (4.2-5.4); White Blood Count 8.33 K/uL (4.8-10.8)
[2019-10-09 06:19] LABS: BUN Creatinine Ratio 33.8 (10-20); Calcium 8.4 mg/dl (8.5-10.1); Creatinine Clr Calc Pharmacy 46.8 ml/min; Est GFR (African American) 79.6; Est GFR (Non-African American) 68.7
[2019-10-09] MEDS: FERROUS SULFATE 325 MG TAB PO SCH ×2 (09:13→16:12)
[2019-10-09] MEDS: ASPIRIN 81 MG ECTAB PO SCH (09:13)
[2019-10-09] MEDS: levETIRAcetam 500 MG TAB PO SCH (09:13)
[2019-10-09] MEDS: THIAMINE HCL 50 MG TABLET PO SCH (09:13)
[2019-10-09] MEDS: ATORVASTATIN 10 MG TAB PO SCH (09:13)
[2019-10-09] MEDS: METOPROLOL TARTRATE 25 MG TAB PO SCH (09:13)
[2019-10-09] MEDS: TRAMADOL HCL 50 MG TABLET PO PRN (13:00)
--- NOTE | 2019-10-09 16:07 | Discharge Summary ---
Date of Service October 09, 2019 Admission HPI Per Admitting Provider Mikaela Easley is a 83y/o F w/ recent medical history of status epilepticus requiring intubation and sedation; who presented to the ED following family noticing that her left leg had swelling and she was not moving it as much. Patient is non-verbal, so history provided by family in room, she had a recent admission to [facility] for status epilepticus, patient returned home yesterday and was weight-bearing for transfer with family at that time. However this morning they noted she was not moving her left leg as much and there was more swelling on that side, they called their PCP and this prompted an outpati ent x-ray showing a left subcapital hip fracture. Principal Diagnosis Left hip fracture Discharge Exam Constitutional well developed and well nourished; no acute distress Eyes PERRL, conjunctivae normal, anicteric sclerae ENMT external ear and nose normal, oropharynx normal Neck trachea midline, no thyromegaly Respiratory normal respiratory effort, lungs clear to auscultation Cardiovascular RRR, no murmur, no edema Gastrointestinal (Abdomen) normal bowel sounds, soft, nontender, no hepatosplenomegaly Musculoskeletal Head/Neck/Chest: normocephalic, head atraumatic and neck supple Extremities: + limited ROM of extremities (left hip joint) and + abnormal strength (generalized weakness); no cyanosis and no clubbing Skin no rashes, warm and dry Neurologic normal touch/pain/proprioception, CN's II-XI intact bilaterally and awake; no focal motor deficits Speech / Cognition: + expressive aphasia and + abnormal cognition Motor/Sensory: no tremor Psychiatric Orientation: alert; + not oriented x 3 Lymphatic no cervical or axillary lymphadenopathy Discharge Data Allergies Allergy/AdvReac Type Severity Reaction Status Date / Time enalapril Allergy Intermediate Cough Verified 10/10/19 13:04 escitalopram AdvReac Intermediate Hallucinati Verified 10/10/19 13:04 ons Consultations 10/04/19 19:55 ED Decision to Admit Stat 10/04/19 23:50 Consult Orthopedic Surgery Routine Procedures Performed Operation Date: 10/05/19 10:55 Actual Procedures p Left Bipolar Hemiarthroplasty(Left) - Sheldon Lama M.D. Hospital Course (1) Subcapital fracture of left femur: - Hip/Pelvis XR Left subcapital fx s/p surgical fixation by Dr. Lama on 10/05/19 - unknown time or exact mechanism how occurred, without recent history of fall or signs of local ecchymosis would presume that this is 2/2 seizure. - Ortho on board- appreciate recs - Post op events included hypothermia which was corrected with koko hugger and post op anemia - Pain management with tylenol and tramadol - PT/OT * H/h low at 8.0/24.7 -- transfused one unit, up to 8.7 on day of discharge d/c instructions provided by orthopedics home health and home therapy arranged, family has care givers 14 hours a day (2) Postoperative anemia: - transfused one unit, Hb up to 8.7 on day of discharge (3) Status epilepticus: - Recently discharged from [facility] following prolonged seizure thought to be secondary prior strokes - Continue keppra 1000mg PO BID -- switched back to PO. Had previously been IV as patient was too lethargic post-operatively to take oral (4) CVA (cerebral vascular accident): - Hx several CVAs, most recent last week - Patient non-verbal at baseline - Continue home atorvastatin 10mg, metoprolol 25mg - Not on ASA outpatient again, patient has care givers 14 hours a day, mostly bed bound at baseline but previously could stand, pivot to chair with assistance this will be her goal, unsure if she will regain function after fracture (5) Dementia: - patient non-verbal at baseline - functional status declined significantly over the last several years according to family - patient does pivot to chair, went to OR to preserve this, PT/OT c/s. (6) Chronic diastolic (congestive) heart failure: - s/p aortic valve replacement September 2014, bioprosthetic - ECHO September 2018 with severe LVH, normal LV systolic function, mildly dilated LA, mild/mod TN, mild MR - Continue home metoprolol 25mg PO daily - Not on JAVY/ARB/spironolactone at this time - Daily weights, I&O - Euvolemic on exam Total Time Total Time Spent Total Time Spent (In Minutes): 31 minutes Total Time Includes: Examination of the Patient, Discharge Planning, Medication Reconciliation, Communication With Other Providers (ortho) and Other (spoke with son over the phone) Discharge Plan Discharge Items Patient Disposition: Home - Home Health Services Reason For Visit: L HIP FRACTURE Discharge Diagnosis: Left hip fracture, s/p hemiarthroplasty Anemia Seizure disorder Condition on Discharge: Good Goals: participate in home health and therapy, improve strength pain control weight bear as tolerated Activity: Per Instructions section Bathing Comment: may shower, do not soak in tub Weightbearing: Left weightbearing Weightbearing Comment: as tolerated for transfers/ambulation with walker Non-emergency contact: Surgeon Call non-emergency contact if: your pain is not controlled, your temperature is above 101.5, your wound has increased redness and your wound has increased drainage Follow-up/Referrals: Aurora Estrada MD [Primary Care Provider] - Sheldon Lama M.D. [Physician] - (Follow up appt. in 10-14 days. ) Crystal Jimenez CRNP [Nurse Practitioner] - (Osteoporosis follow up in 6 weeks. ) Diet: Regular Addtl Attending Provider Instructions: see orthopedic instructions below Medications: - ASPIRIN: need to take 81mg TWICE a day for 4 weeks to prevent blood clots - TRAMADOL: take as needed for pain, use 50mg every 4 hours, can increase to 100mg (2 tablets) if pain does not seem controlled - FERROUS SULFATE: iron, take twice a day for anemia Addtl Traffic Signal Supervisor Maintenance Provider Instructions: ACTIVITY RECOMMENDATIONS: SELF CARE INSTRUCTIONS AFTER HIP HEMIARTHROPLASTY Until the incision and soft tissues around your hip have healed, there is a possibility that the hip prosthesis could dislocate. A. Observe the following precautions to prevent dislocation: 1. Don't bend your hip greater than 90 degrees. 2. Avoid crossing your legs or ankles while standing or lying. 3. Sit with your feet placed 6 inches apart. 4. When sitting, keep your knees below your hips. Sit on a firm surface, avoid deep, soft chairs and couches. Use an elevated toilet seat in the bathroom. 5. Don't bend over at the waist. Use a long handled shoehorn and a sock aid to help you put on your shoes and socks. A caravan park and camping ground manager can help you knot picker cloth objects that are too high or too low to reach. 6. Keep car riding to a minimum for at least one month after surgery. B. Your balance may be shaky for a while. Use crutches or a walker until directed by your doctor. C. Use hand rails when walking on stairs. D. Wear low heeled shoes with non-slip soles. E. Be sure that your floors are free of things that could trip you - throw rugs, electrical cords, small objects. Avoid wet and waxed floors, especially with crutches and canes. F. Try to walk several times a day with rest periods between. G. Continue with all the exercises taught to you in the hospital. Again, make walking a part of your daily routine. SPECIAL CARE INSTRUCTIONS: VERY IMPORTANT TO READ AND REVIEW A. You may still be at risk for phlebitis and blood clots. 1. Wear surgical stockings (WILDER hose) for 2 weeks after surgery to improve circulation and reduce swelling. 2. Take Aspirin 81mg twice daily for 4 weeks or as directed by your doctor. This is your blood thinner. 3. High risk patients may be prescribed a stronger blood thinner if necessary. 4. If you are on Coumadin normally, your family doctor/gem stone cutter should monitor your blood work. Expect a phone call the day of or the day after bloodwork is drawn to adjust your dosage. B. You must take antibiotics before having dental work, bladder, bowel and other surgery. Your doctor will provide you with a permanent card to carry describing precautions. C. Call [facility] if you have a fever, redness or swelling around the incision, cloudy drainage from incision, or sudden increase in pain in your hip, not relieved by your regular pain medication. D. Please call the office at if you have any concerns or questions about your operation or recovery. * YOU MAY SHOWER, NO TUB BATHS UNTIL CLEARED BY YOUR DOCTOR. * WEAR WILDER HOSE 20 HOURS PER DAY FOR 2 WEEKS. * YOU SHOULD USE A WALKER OR CRUTCHES FOR 2-4 WEEKS. THIS WILL HELP PREVENT STRAIN ON YOUR HIP MUSCLE AND ALLOW IT TO HEAL PROPERLY. YOU MAY WEAN TO A CANE TOLERATED. * MOST PATIENTS WILL HAVE HOME NURSING FOR THERAPY. IF YOU DECIDE TO DO OUTPATIENT PHYSICAL THERAPY, PLEASE SCHEDULE THIS 3 TIMES PER WEEK. * DAILY DRESSING CHANGES. IF THE WOUND IS DRY, YOU CAN CHANGE EVERY OTHER DAY. IF THERE IS INCREASED DRAINAG, REDNESS, OR PAIN, PLEASE CALL THE OFFICE . FOLLOW UP VISIT: If appointment is not already scheduled: Please call [facility] to make a follow-up appointment with Dr. Lama 2 weeks after your surgery at . Pending Studies at Discharge: No Stand-Alone Forms: My [facility] [employer], Smoking Cessation Medications and DC Order Prescriptions: New aspirin 81 mg Tablet,Delayed Release (Dr/Ec) 81 mg PO BID 30 Days Qty: 60 RF: 0 tramadol 50 mg Tablet 50 - 100 mg PO Q4H PRN (Reason: pain) Qty: 60 RF: 0 ferrous sulfate 325 mg (65 mg iron) Tablet,Delayed Release (Dr/Ec) 325 mg PO BIDM 30 Days Qty: 60 RF: 3 Continued diclofenac sodium [Voltaren] 1 % gel 2 gm TOP QID PRN (Reason: JOINT PAIN) Qty: 100 RF: 0 metoprolol tartrate 25 mg tablet 25 mg PO QAM Qty: 90 RF: 3 acetaminophen [Tylenol] 325 mg capsule 325 - 650 mg PO BID RF: 0 cholecalciferol (vitamin D3) [Vitamin D3] 2,000 unit Capsule 2,000 units PO HS RF: 0 thiamine HCl (vitamin B1) [Vitamin B-1] 250 mg Tablet 250 mg PO QAM RF: 0 atorvastatin [Lipitor] 10 mg tablet 10 mg PO QAM RF: 0 methenamine hippurate [Hiprex] 1 gram tablet 1 gm PO HS RF: 0 celecoxib [Celebrex] 100 mg capsule 100 mg PO HS RF: 0 Myrbetriq 50 mg tablet extended release 24 hr 50 mg PO DAILY RF: 0 polyethylene glycol 3350 [Miralax] 17 gram powder in packet 17 g PO BID RF: 0 folic acid 800 mcg Tablet 0.8 mg PO DAILY RF: 0 cyanocobalamin (vitamin B-12) [Vitamin B-12] 5,000 mcg Tablet, Sublingual 5,000 mcg PO DAILY RF: 0 amoxicillin-pot clavulanate 875-125 mg tablet 1 tab PO BID RF: 0 docusate sodium 100 mg Tablet 100 mg PO DAILY RF: 0 Saccharomyces boulardii 250 mg Capsule 250 mg PO DAILY RF: 0 levetiracetam 1,000 mg Tablet 1,000 mg PO BID RF: 0 lorazepam 0.5 mg Tablet 0.5 mg PO DAILY PRN (Reason: Anxiety) RF: 0 nystatin 100,000 unit/gram Powder 1 applic TOPICAL TID RF: 0 risperidone 0.5 mg tablet 0.5 mg PO TID RF: 0 triamcinolone acetonide 0.05 % Ointment 1 applic TOPICAL BID RF: 0 Discharge Orders: Discharge Order (Routine); Ordered 10/09/19 Ordered By: Ector Dang Admission Data Admit Date/Time: 10/04/19 21:49 Attending Provider: Ector Dang Admit Provider: Lalo Lopez Primary Care Provider: Aurora Estrada V. Other Providers: Ryland Thornton ; Martin Santos ; Chau Clifton Other Interventions: Discharge Summary Assessment (RN) Last Done: 10/09/19 16:22 DC Date/Time DO NOT enter until pt leaves facility: 10/09/19 18:30 Coding Level of Care Code D/C Day Management >30 mins Diagnoses Subcapital fracture of left femur S72.012A Encounter type: initial encounter Fracture type: closed Postoperative anemia D64.9 Status epilepticus G40.901 CVA (cerebral vascular accident) I63.9 Dementia F03.90 Dementia behavioral disturbance: without behavioral disturbance Dementia type: unspecified type Chronic diastolic (congestive) heart failure I50.32
--- NOTE | 2019-10-20 11:41 | Coding Query ---
ANEMIA To promote full compliance with coding requirements relating to patient care, physician participation is requested in all cases of tetryl nitrator operator uncertainty. Please assist us with the question(s) below: Coding Question(s): The record reflects the following clinical findings: If these findings are indicative of anemia, please specify the known or suspected type by placing an "X" within the parenthesis (x). If other, please document type. Examples are: ( ) Acute blood loss anemia ( ) Acute Postoperative blood loss anemia ( ) Acute postoperative anemia due to dilutional fluids ( ) Chronic blood loss anemia ( x) Anemia, unspecified or other ( ) Other: (please specify) ( ) Unable to determine Thank you Maria Luisa BEEBE
== END 2019-10-09 18:30 | disposition home health service (06) | DRG 470 ==
LOC: EDSEX → ED 18:59 → SUATTDRO 21:49 → 2N 21:49

== ENCOUNTER 2019-11-06 15:16 | Inpatient (IN) ==
[2019-11-06] MEDS ORDERED: PIPERACILLIN/TAZOBACTAM 4.5 GM/120 ML BAG IV ONE (16:24)
[2019-11-06] MEDS ORDERED: PIPERACILL/TAZOBAC CONSULT ACTIVE PRN (16:24)
[2019-11-06 16:45] LABS: Basophils # (auto) 0.03 K/uL (0-0.2); Basophils % (auto) 0.3 %; Eosinophils # (auto) 0.24 K/uL (0-0.5); Eosinophils % (auto) 2.2 %; Hematocrit (blood only) 31.6 % (37-47); Hemoglobin 10.1 g/dL (12.0-16.0); Immature Granulocytes # (auto) 0.02 K/uL (0.00-0.02); Immature Granulocytes % (auto) 0.2 %; Lymphocytes # (auto) 1.57 K/uL (1.2-3.4); Lymphocytes % (auto) 14.7 %; Mean Corpuscular Hemoglobin 29.2 pg (25-34); Mean Corpuscular Volume 91.3 fL (80-100); Mean Platelet Volume 10.1 fL (7.4-10.4); Monocytes % (auto) 9.4 %; Neutrophils # (auto) 7.82 K/uL (1.4-6.5); Neutrophils % (auto) 73.2 %; Platelet Count 188 K/uL (130-400); RDW Coefficient of Variation 14.6 % (11.5-14.5); RDW Standard Deviation 48.6 fL (36.4-46.3); Red Blood Count 3.46 M/uL (4.2-5.4); White Blood Count 10.68 K/uL (4.8-10.8)
[2019-11-06 17:11] LABS: Albumin Level 3.2 gm/dl (3.4-5.0); BUN Creatinine Ratio 32.4 (10-20); Calcium 9.2 mg/dl (8.5-10.1); Creatinine Clr Calc Pharmacy 43.4 ml/min; Est GFR (African American) 66.7; Est GFR (Non-African American) 57.6; Potassium 4.4 mmol/L (3.5-5.1)
[2019-11-06 17:14] LABS: Albumin Globulin Ratio 0.9 (0.9-2); Bilirubin,Total 0.4 mg/dl (0.2-1); Globulin 3.5 gm/dl (2.5-4.0); Total Protein 6.7 gm/dl (6.4-8.2)
[2019-11-06 17:56] LABS: Appearance Urine Clear (Clear); Bacteria Urine Automated Negative (Negative); Bilirubin Urine Negative (Negative); Blood Urine 3+ (Negative); Color Urine Yellow; Epithelial Cell Urine Auto >30 /lpf (0-5); Glucose Urine UA Negative (Negative); Ketones Urine Negative (Negative); Leukocyte Esterase Urine 1+ (Negative); Nitrite Urine Positive (Negative); RBC Urine Automated >30 /hpf (0-4); Urobilinogen Urine Negative (Negative); pH Urine 7.5 (4.5-7.5)
[2019-11-06 18:06] LABS: Protein Urine 3+ (Negative); Sulfosalicylic Acid Urine Positive (Negative)
--- NOTE | 2019-11-06 19:14 | History & Physical Report ---
Date of Service November 06, 2019 Assessment & Plan (1) Catheter-associated urinary tract infection: Continue Zosyn based on prior ESBL urine cultures. Blood cultures taken, if negative after 48 hours consider PICC line and setting her up with antibiotics at home. Follow-up current urine and blood cultures. Of note blood cultures with taken after antibiotics started in the ER. (2) Cellulitis: Surrounding sacral ulcer. Will also be treated with Zosyn. (3) Pressure ulcer of coccygeal region, stage 3: Wound care consult (4) Dementia: At baseline mental state as per her son. She tends to wax and wane considerably. Will likely need one-to-one care throughout admission. Continue ropinirole 0.5 mg 3 times daily Close monitoring of bowel movements although son reports this has not been a recent issue. (5) Seizure disorder: Continue Keppra 1 g twice daily Level to be taken in the morning (6) S/P CABG x 1: Continue aspirin, will reduce dose to once a day and place on DVT prophylaxis in the form of heparin Continue metoprolol tartrate although unclear why she is not on metoprolol succinate Continue atorvastatin 10 mg p.o. every morning (7) DVT prophylaxis: On aspirin 81 mg twice daily since her hip operation States will be using heparin will reduce aspirin down to once a day Heparin 5000 units subcu every 12 hourly Admission and Anticipated Discharge Date Admission Date: November 06, 2019 History of Present Illness Chief Complaint: ESBL growing on urine culture Primary Care Provider: Aurora Estrada MD Mikaela Easley is an 84 year old female who presents to the ER on the advice of her urologist due to ESBL growing on urine culture. She has a recent indwelling urinary catheter due to a nonhealing sacral ulcer. Her son is at bedside and reports she is currently at her baseline. Fluctuates considerably but psychomotor agitation is not unusual for her. He reports she eats a regular diet with no history of aspirations but tends to pocket food. Requests minced and moist diet. She has baseline Alzheimer's dementia and lives with her son. At baseline is disorientated x3, nonverbal and bedbound. Prior to her hip fracture she could stand, pivot to chair with assistance. Recent considerable hospitalizations after receiving ertapenem for a catheter associated UTI which was suspected to have caused her first ever tonic-clonic seizure when she was intubated in the emergency room on September 25, 2019 and life flighted to [facility]. She was started on Keppra and managed to be extubated without significant issues however on discharge when she arrived home she was noted to have a swollen left hip and was not moving her left leg. Subsequent x-ray showed a left hip fracture and she was hospitalized here from October 03-2019 for surgical repair of this. Allergies Allergy/AdvReac Type Severity Reaction Status Date / Time ertapenem Allergy Severe seizures Unverified 11/06/19 16:35 enalapril Allergy Intermediate Cough Verified 11/06/19 16:35 escitalopram AdvReac Intermediate Hallucinati Verified 11/06/19 16:35 ons Home Medications Home Medications Medication Instructions Recorded Confirmed Type cholecalciferol (vitamin D3) 2,000 units PO HS 04/04/18 11/06/19 History [Vitamin D3] thiamine HCl (vitamin B1) [Vitamin 250 mg PO QAM 10/21/18 11/06/19 History B-1] acetaminophen 325 mg capsule 325 - 650 mg PO BID cap 01/30/19 11/06/19 History Myrbetriq 50 mg PO QAM 06/29/19 11/06/19 History atorvastatin [Lipitor] 10 mg PO QAM 06/29/19 11/06/19 History celecoxib [Celebrex] 100 mg PO HS 06/29/19 11/06/19 History methenamine hippurate [Hiprex] 1 gm PO HS 06/29/19 11/06/19 History cyanocobalamin (vitamin B-12) 5,000 mcg PO QAM 07/20/19 11/06/19 History [Vitamin B-12] folic acid 0.8 mg PO QAM 07/20/19 11/06/19 History diclofenac sodium 1 % topical gel 2 gm TOP QID PRN #100 gm 08/07/19 11/06/19 Rx metoprolol tartrate 25 mg tablet 25 mg PO QAM #90 tab 08/17/19 11/06/19 Rx polyethylene glycol 3350 [Miralax] 17 g PO BID PRN 09/19/19 11/06/19 History Saccharomyces boulardii 250 mg PO QAM 10/04/19 11/06/19 History docusate sodium 100 mg PO QAM PRN 10/04/19 11/06/19 History levetiracetam 1,000 mg PO BID 10/04/19 11/06/19 History lorazepam 0.5 mg PO DAILY PRN 10/04/19 11/06/19 History nystatin 1 applic TOPICAL TID 10/04/19 11/06/19 History risperidone 0.5 mg PO TID 10/04/19 11/06/19 History aspirin 81 mg PO BID 30 Days #60 tab 10/09/19 11/06/19 Rx ferrous sulfate 325 mg PO BIDM 30 Days #60 tab 10/09/19 11/06/19 Rx tramadol 50 - 100 mg PO Q4H PRN #60 tab 10/09/19 11/06/19 Rx Past Med/Surg History Social History Preferred Language: Thai Communication Ability: Impaired Bird Sitter Required: No Beliefs That Will Affect Care: None marital status: / Current Living Situation: Family and Other Current Living Situation Comment: Caregivers provide assistance with ADL's. current occupational status: retired Feels Safe at Home: Yes Smoking Status: Never smoker Do You Dip or Chew Tobacco: No ; Second Hand Exposure: No ; Tobacco Cessation Education Requested by Patient: No Hx Alcohol Use: No Hx Substance Use: No during the past year weight has: remained stable Seatbelt Use: always Review of Systems Review of Systems: Unobtainable due to cognitive status Physical Exam Constitutional: + acute distress (Constant moving of limbs in bed) and + frail appearing; + not well nourished Eyes: + anicteric sclerae and + abnormal pupil size (Bilateral myosis, equal) ENMT: Ears: no external ear abnormality Nose: no external nose abnormality Mouth: + dry oral mucous membranes Neck: trachea midline Respiratory: normal respiratory effort, lungs clear to auscultation Cardiovascular: Rate/Rhythm: regular rate and regular rhythm Heart Sounds: no murmur Extremities: normal capillary refill; no pedal edema Gastrointestinal (Abdomen): normal bowel sounds, soft, nontender, no hepatosplenomegaly Skin: Stage III sacral ulcer on back with surrounding erythematous skin and mild warmth (see picture in EHR from wound care clinic) Left hip surgical scar appears intact without surrounding cellulitis Neurologic: moves all extremities and awake Psychiatric: Orientation: alert; + not oriented x 3 Eye Contact: + poor eye contact Motor Behavior: + psychomotor agitation Speech: + mute Genitourinary: no CVA tenderness Lymphatic: no cervical or axillary lymphadenopathy Results & Data Results & Data ([facility]) Vital Signs (Past 12 Hours) Vital Signs Temp Pulse Resp BP Pulse Ox 11/06/19 17:30 90 13 11/06/19 17:00 89 15 11/06/19 16:38 87 19 11/06/19 16:34 94 11/06/19 15:27 37 C 80 20 105/68 94 Code Status & VTE Plan Code Status DNR in the event of cardiac arrest. Intubation in the case of status epilepticus. VTE Prophylaxis Plan VTE Prophylaxis will be ordered: Yes PG Care Time/CCT Total # of Minutes Spent Total Time Spent with Patient: Total time spent is greater than 50% in coordination of care (as documented) at patient's floor/unit and/or counseling patient: Coding Level of Care Code 16841 Initial Inpt Care Lvl 3 Diagnoses Catheter-associated urinary tract infection T83.511A; N39.0 Cellulitis L03.90 Pressure ulcer of coccygeal region, stage 3 L89.153 Dementia F03.90 Dementia behavioral disturbance: without behavioral disturbance Dementia type: unspecified type Seizure disorder G40.909 S/P CABG x 1 Z95.1 DVT prophylaxis Z29.9 (1) Dementia Dementia behavioral disturbance: without behavioral disturbance Dementia type: unspecified type Qualified Code(s): F03.90 - Unspecified dementia without behavioral disturbance
--- NOTE | 2019-11-06 19:16 | Emergency Department Note ---
Impression & Plan Urinary tract infection due to extended-spectrum beta lactamase (ESBL) producing Escherichia coli ED Provider Note NAME: RADHA FARRELL AGE: 84 SEX: F ARRIVES VIA: Walk-In INFORMANT: [Patient] ED PROVIDER(S): Anirudh Snow MD CHIEF COMPLAINT: Complicated urinary tract infection PLAN: Disposition: Admitted Condition: [Good] MEDICAL DECISION MAKING: She presents with family due to complicated UTI. She has an indwelling catheter currently and has been diagnosed with an ESBL UTI. She has had a similar problem before. She did have a seizure episode which raised concerns about her receiving ertapenem/imipenem. The patient had blood work obtained and this was unremarkable. Urine culture reviewed from prior urinalysis. I discussed the antibiotic choices with the ED pharmacist. Since she does not have any signs of sepsis or upper tract infection Zosyn would be a reasonable alternative given the sensitivities and what appears to be an isolated lower UTI. If treatment would fail she would need to have ertapenem/imipenem and care would need to be monitored for the seizure issues. Consultation was made with the hospital service. Patient was evaluated in ER and admitted for further management. Triage Nursing notes reviewed and agree them. [Additional history obtained from] family [Prior medical records reviewed] ESBL E. coli UTI noted. Sensitive to Zosyn Vital Signs: reviewed and remarkable for [no significant abnormalities] Differential diagnosis: Infection, hypoglycemia, electrolyte abnormalities, pyelonephritis, sepsis, as well as other pathologies. ER treatment provided: Zosyn Diagnostics interpreted by me: Cardiac monitoring ordered by me: The patient was placed on continuous cardiac monitoring and observed. It revealed a normal sinus rhythm at 88 beats per minute without ectopy or evidence of dysrhythmia. Laboratory studies: [See below] mild anemia on CBC. Chemistry panel unremarkable. Imaging studies: Deferred Consultation(s): Dr. Irwin, hospitalist service HPI: 84/F arrives for evaluation of complicated UTI. Outpatient testing revealed an ESBL E. coli UTI. The patient has had a similar issue in the past. She is currently using an indwelling Sears catheter to protect sacral decubiti. The patient has had a complicated medical history recently with a hip fracture as well as seizure and respiratory failure. She did have issues with the UTI as well. The patient is nonverbal. She is cared for by family. Family is present and helps with the history. No fever reported at home. No vomiting. No catheter problems noted per family. History is limited secondary to the patient's medical status. ROS: Limited secondary to medical status. PAST MEDICAL HISTORY:[See Below] dementia, hypertension, seizure, UTI PAST SURGICAL HISTORY:[See Below] FAMILY HISTORY:[See Below] SOCIAL HISTORY:[See Below] lives with family HOME MEDICATIONS:[See Below] ALLERGIES:[See Below] VITALS:[See Below] PHYSICAL EXAMINATION: GENERAL: Awake, alert, well-appearing, in no distress HENT: Normocephalic, atraumatic. Oropharynx unremarkable. EYES: Normal conjunctiva. Sclera non-icteric. NECK: Inspection normal. Non-tender. Supple. No nuchal rigidity. FROM. No masses. RESPIRATORY: Clear to auscultation. No wheezes. No rales. Normal respiratory effort. CARDIAC: Normal rate. Normal rhythm. No murmurs. No rubs. Extremities warm and well perfused. Pulses equal. No JVD. GI: Soft, non-distended. No tenderness to palpation. No rebound or guarding. No masses. : Sears catheter in place MUSCULOSKELETAL: Atraumatic. Chest examination reveals no tenderness. The back is symmetrical on inspection without obvious abnormality. There is no CVA tenderness to palpation. No joint edema. LOWER EXTREMITIES: Calves are equal size bilaterally and non-tender. No edema. No discoloration. NEURO: Nonverbal. Awake and alert. Not following commands. Patient at baseline per family. SKIN: Sacral decubiti noted. No rash or jaundice noted. ED COURSE: [Critical Care:] [None] Anirudh Snow MD Past Med/Surg History Social History Preferred Language: Tuvaluan Communication Ability: Impaired Crate Maker Required: No Beliefs That Will Affect Care: None marital status: / Current Living Situation: Family Current Living Situation Comment: w/ 2 dtrs current occupational status: retired Feels Safe at Home: Yes Smoking Status: Never smoker Second Hand Exposure: No ; Hx Alcohol Use: No Hx Substance Use: No during the past year weight has: remained stable Seatbelt Use: always Allergies Allergies Allergy/AdvReac Type Severity Reaction Status Date / Time ertapenem Allergy Severe seizures Unverified 11/06/19 16:35 enalapril Allergy Intermediate Cough Verified 11/06/19 16:35 escitalopram AdvReac Intermediate Hallucinati Verified 11/06/19 16:35 ons Home Meds Home Medications Medication Instructions Recorded Confirmed cholecalciferol (vitamin D3) 2,000 units PO HS 04/04/18 11/06/19 [Vitamin D3] thiamine HCl (vitamin B1) [Vitamin 250 mg PO QAM 10/21/18 11/06/19 B-1] acetaminophen 325 mg capsule 325 - 650 mg PO BID cap 01/30/19 11/06/19 Myrbetriq 50 mg PO QAM 06/29/19 11/06/19 atorvastatin [Lipitor] 10 mg PO QAM 06/29/19 11/06/19 celecoxib [Celebrex] 100 mg PO HS 06/29/19 11/06/19 methenamine hippurate [Hiprex] 1 gm PO HS 06/29/19 11/06/19 cyanocobalamin (vitamin B-12) 5,000 mcg PO QAM 07/20/19 11/06/19 [Vitamin B-12] folic acid 0.8 mg PO QAM 07/20/19 11/06/19 polyethylene glycol 3350 [Miralax] 17 g PO BID PRN 09/19/19 11/06/19 Saccharomyces boulardii 250 mg PO QAM 10/04/19 11/06/19 docusate sodium 100 mg PO QAM PRN 10/04/19 11/06/19 levetiracetam 1,000 mg PO BID 10/04/19 11/06/19 lorazepam 0.5 mg PO DAILY PRN 10/04/19 11/06/19 nystatin 1 applic TOPICAL TID 10/04/19 11/06/19 risperidone 0.5 mg PO TID 10/04/19 11/06/19 Previous Rx's Medication Instructions Recorded diclofenac sodium 1 % topical gel 2 gm TOP QID PRN #100 gm 08/07/19 metoprolol tartrate 25 mg tablet 25 mg PO QAM #90 tab 08/17/19 aspirin 81 mg PO BID 30 Days #60 tab 10/09/19 ferrous sulfate 325 mg PO BIDM 30 Days #60 tab 10/09/19 tramadol 50 - 100 mg PO Q4H PRN #60 tab 10/09/19 Results & Data (ED) Vital Signs Vital Signs - 24 hr 11/06/19 15:27 11/06/19 16:34 11/06/19 16:38 Temperature 37 C Temperature Source Oral Pulse Rate 80 87 Pulse Rhythm Regular Pulse Strength Normal Respiratory Rate 20 19 Respiratory Effort / Characteristics Non-Labored Spontaneous Respiratory Depth Normal Respiratory Pattern Regular Blood Pressure 105/68 Blood Pressure Mean 80 Blood Pressure Position Sitting Pulse Oximetry 94 94 Oxygen Delivery Method Room Air Sepsis Recent Fever Within 48 Hours No Sepsis New/Unexplained Change in Mental Status No Sepsis Action Taken by Nursing No Action Required 11/06/19 17:00 11/06/19 17:30 11/06/19 17:53 Temperature Temperature Source Pulse Rate 89 90 84 Pulse Rhythm Pulse Strength Respiratory Rate 15 13 21 Respiratory Effort / Characteristics Respiratory Depth Respiratory Pattern Blood Pressure 130/77 Blood Pressure Mean 91 Blood Pressure Position Pulse Oximetry Oxygen Delivery Method Sepsis Recent Fever Within 48 Hours Sepsis New/Unexplained Change in Mental Status Sepsis Action Taken by Nursing 11/06/19 18:00 11/06/19 18:01 11/06/19 18:30 Temperature Temperature Source Pulse Rate 91 H 93 H 85 Pulse Rhythm Pulse Strength Respiratory Rate 15 23 20 Respiratory Effort / Characteristics Respiratory Depth Respiratory Pattern Blood Pressure 148/85 H 168/82 H Blood Pressure Mean 115 119 Blood Pressure Position Pulse Oximetry Oxygen Delivery Method Sepsis Recent Fever Within 48 Hours Sepsis New/Unexplained Change in Mental Status Sepsis Action Taken by Nursing 11/06/19 19:00 11/06/19 19:01 Temperature Temperature Source Pulse Rate 86 90 Pulse Rhythm Pulse Strength Respiratory Rate 16 21 Respiratory Effort / Characteristics Respiratory Depth Respiratory Pattern Blood Pressure 148/67 H Blood Pressure Mean 90 Blood Pressure Position Pulse Oximetry Oxygen Delivery Method Sepsis Recent Fever Within 48 Hours Sepsis New/Unexplained Change in Mental Status Sepsis Action Taken by Nursing Laboratory Data Result diagrams: 11/06/19 16:21 11/06/19 16:21 Lab Results 11/06/19 11/06/19 11/06/19 Range/Units 16:21 16:21 17:31 WBC 10.68 (4.8-10.8) K/uL RBC 3.46 L (4.2-5.4) M/uL Hgb 10.1 L (12.0-16.0) g/dL Hct 31.6 L (37-47) % MCV 91.3 (80-100) fL MCH 29.2 (25-34) pg MCHC 32.0 (32-36) g/dL RDW Std Deviation 48.6 H (36.4-46.3) fL RDW Coeff of [place] 14.6 H (11.5-14.5) % Plt Count 188 (130-400) K/uL MPV 10.1 (7.4-10.4) fL Immature Gran % (Auto) 0.2 % Neut % (Auto) 73.2 % Lymph % (Auto) 14.7 % [place] % (Auto) 9.4 % Eos % (Auto) 2.2 % Baso % (Auto) 0.3 % Neut # (Auto) 7.82 H (1.4-6.5) K/uL Lymph # (Auto) 1.57 (1.2-3.4) K/uL [place] # (Auto) 1.00 H (0.11-0.59) K/uL Eos # (Auto) 0.24 (0-0.5) K/uL Baso # (Auto) 0.03 (0-0.2) K/uL Immature Gran # (Auto) 0.02 (0.00-0.02) K/uL Sodium 140 (136-145) mmol/L Potassium 4.4 (3.5-5.1) mmol/L Chloride 107 (98-107) mmol/L Carbon Dioxide 27 (21-32) mmol/L Anion Gap 7.0 (3-11) BUN 30 H (7-18) mg/dl Creatinine 0.92 (0.6-1.2) mg/dl Est Cr Clr Drug Dosing 43.4 ml/min Est GFR ( Amer) 66.7 Est GFR (Non-Af Amer) 57.6 BUN/Creatinine Ratio 32.4 H (10-20) Glucose 119 H (70-99) mg/dl Calcium 9.2 (8.5-10.1) mg/dl Total Bilirubin 0.4 (0.2-1) mg/dl AST 18 (15-37) U/L ALT 14 (12-78) U/L Alkaline Phosphatase 122 H (45-117) U/L Total Protein 6.7 (6.4-8.2) gm/dl Albumin 3.2 L (3.4-5.0) gm/dl Globulin 3.5 (2.5-4.0) gm/dl Albumin/Globulin Ratio 0.9 (0.9-2) Lipase 133 (73-393) U/L Urine Color Yellow Urine Appearance Clear (Clear) Urine pH 7.5 (4.5-7.5) Ur Specific [place] 1.020 (1.000-1.030) Urine Protein 3+ H (Negative) Urine Glucose (UA) Negative (Negative) Urine Ketones Negative (Negative) Urine Blood 3+ H (Negative) Urine Nitrite Positive A (Negative) Urine Bilirubin Negative (Negative) Urine Urobilinogen Negative (Negative) Ur Leukocyte Esterase 1+ H (Negative) Urine WBC (Auto) 10-30 H (0-5) /hpf Urine RBC (Auto) >30 H (0-4) /hpf U Hyaline Cast (Auto) 1-5 (0-5) /lpf U Epithel Cells (Auto) >30 H (0-5) /lpf Urine Bacteria (Auto) Negative (Negative) Administered Medications Discontinued Medications Piperacillin Sod/Tazobactam Sod (Zosyn) 4.5 gm in 120 mls @ 240 mls/hr IV NOW ONE Stop: 11/06/19 16:53 Last Infusion: 11/06/19 17:44 Dose: 0 mls/hr Documented by: [id number] Admin: 11/06/19 16:43 Dose: 240 mls/hr Documented by: [id number] Discharge Plan Visit Data Chief Complaint: Urinary Symptoms Stated Complaint: DR SENT FOR UTI ED Provider: Anirudh Snow Discharge Problem: Urinary tract infection due to extended-spectrum beta lactamase (ESBL) producing Escherichia coli Forms Stand Alone Forms: My [facility] Prescriptions Prescriptions: No Action diclofenac sodium [Voltaren] 1 % gel 2 gm TOP QID PRN (Reason: JOINT PAIN) Qty: 100 RF: 0 metoprolol tartrate 25 mg tablet 25 mg PO QAM Qty: 90 RF: 3 acetaminophen [Tylenol] 325 mg capsule 325 - 650 mg PO BID RF: 0 cholecalciferol (vitamin D3) [Vitamin D3] 2,000 unit Capsule 2,000 units PO HS RF: 0 thiamine HCl (vitamin B1) [Vitamin B-1] 250 mg Tablet 250 mg PO QAM RF: 0 atorvastatin [Lipitor] 10 mg tablet 10 mg PO QAM RF: 0 methenamine hippurate [Hiprex] 1 gram tablet 1 gm PO HS RF: 0 celecoxib [Celebrex] 100 mg capsule 100 mg PO HS RF: 0 Myrbetriq 50 mg tablet extended release 24 hr 50 mg PO QAM RF: 0 polyethylene glycol 3350 [Miralax] 17 gram powder in packet 17 g PO BID PRN (Reason: Constipation) RF: 0 folic acid 800 mcg Tablet 0.8 mg PO QAM RF: 0 cyanocobalamin (vitamin B-12) [Vitamin B-12] 5,000 mcg Tablet, Sublingual 5,000 mcg PO QAM RF: 0 docusate sodium 100 mg Tablet 100 mg PO QAM PRN (Reason: Constipation) RF: 0 Saccharomyces boulardii 250 mg Capsule 250 mg PO QAM RF: 0 levetiracetam 1,000 mg Tablet 1,000 mg PO BID RF: 0 lorazepam 0.5 mg Tablet 0.5 mg PO DAILY PRN (Reason: Anxiety) RF: 0 nystatin 100,000 unit/gram Powder 1 applic TOPICAL TID RF: 0 risperidone 0.5 mg tablet 0.5 mg PO TID RF: 0 aspirin 81 mg Tablet,Delayed Release (Dr/Ec) 81 mg PO BID 30 Days Qty: 60 RF: 0 tramadol 50 mg Tablet 50 - 100 mg PO Q4H PRN (Reason: pain) Qty: 60 RF: 0 ferrous sulfate 325 mg (65 mg iron) Tablet,Delayed Release (Dr/Ec) 325 mg PO BIDM 30 Days Qty: 60 RF: 3 Referrals Referrals: Aurora Estrada MD [Primary Care Provider] -
[2019-11-06] MEDS ORDERED: DICLOFENAC SOD 1% GEL 100 GM TUBE EXT PRN (20:27)
[2019-11-06] MEDS ORDERED: POLYETHYLENE (MIRALAX) 17 GM PACK PO PRN (20:27)
[2019-11-06] MEDS ORDERED: ALUMINUM/MAGNESIUM SUSP 30 ML UDC PO PRN (20:59)
[2019-11-06] MEDS ORDERED: ACETAMINOPHEN 325 MG TAB PO PRN (20:59)
[2019-11-06] MEDS ORDERED: ASPIRIN 81 MG ECTAB PO SCH (21:00)
[2019-11-06] MEDS: CHOLECALCIFEROL 1,000 UNITS 25 MCG TAB PO SCH (21:50)
[2019-11-06] MEDS: levETIRAcetam 500 MG TAB PO SCH (21:52)
[2019-11-06] MEDS: CELECOXIB 100 MG CAP PO SCH (21:52)
[2019-11-06] MEDS: HEPARIN SOD 5,000 UNIT/0.5 ML VIAL SQ SCH (21:52)
[2019-11-06] MEDS: NYSTATIN POWDER 15GM BTL EXT SCH (21:52)
[2019-11-06] MEDS: risperiDONE 0.5 MG TABLET PO SCH (21:53)
[2019-11-06] MEDS: PIPERACILLIN/TAZOBACTAM 3.375 GM in DEXTROSE 5% 100 ML IV SCH (21:54)
[2019-11-06] MEDS: LORazepam 0.5 MG TAB PO PRN (22:06)
[2019-11-07] MEDS: PIPERACILLIN/TAZOBACTAM 3.375 GM in DEXTROSE 5% 100 ML IV SCH (06:10)
[2019-11-07 08:43] LABS: BUN Creatinine Ratio 24.8 (10-20); Calcium 9.1 mg/dl (8.5-10.1); Creatinine Clr Calc Pharmacy 42.2 ml/min; Est GFR (African American) 71.4; Est GFR (Non-African American) 61.6
[2019-11-07] MEDS: FERROUS SULFATE 325 MG TAB PO SCH ×2 (09:12→17:06)
[2019-11-07] MEDS: ASPIRIN 81 MG ECTAB PO SCH (09:13)
[2019-11-07] MEDS: DOCUSATE SODIUM 100 MG CAP PO SCH (09:13)
[2019-11-07] MEDS: SACCHAROMYCES BOULARDII 250 MG CAP PO SCH (09:13)
[2019-11-07] MEDS: levETIRAcetam 500 MG TAB PO SCH ×2 (09:14→20:57)
[2019-11-07] MEDS: FOLIC ACID 400 MCG TAB PO SCH (09:14)
[2019-11-07] MEDS: ATORVASTATIN 10 MG TAB PO SCH (09:17)
[2019-11-07] MEDS: METOPROLOL TARTRATE 25 MG TAB PO SCH (09:18)
[2019-11-07] MEDS: NYSTATIN POWDER 15GM BTL EXT SCH ×3 (09:18→20:57)
[2019-11-07] MEDS: MIRABEGRON ER 25 MG TAB PO SCH (09:19)
[2019-11-07] MEDS: risperiDONE 0.5 MG TABLET PO SCH ×3 (09:19→20:57)
[2019-11-07] MEDS: THIAMINE HCL 50 MG TABLET PO SCH (09:20)
[2019-11-07] MEDS: CYANOCOBALAMIN (VITAMIN B-12) 2,500 MCG TAB.SUBL SL SCH (09:23)
[2019-11-07] MEDS: HEPARIN SOD 5,000 UNIT/0.5 ML VIAL SQ SCH ×2 (09:31→21:07)
--- NOTE | 2019-11-07 12:42 | Hospitalist Progress Note ---
Date of Service November 07, 2019 Assessment & Plan (1) Catheter-associated urinary tract infection: Continue Zosyn based on prior ESBL urine cultures. Blood cultures taken, may need PICC line, will await blood culture results Follow-up current urine and blood cultures. Of note blood cultures with taken after antibiotics started in the ER. (2) Bacteremia: Blood cultures with initial report of gram negative bacilli, awaiting further identification. Continue Zosyn as above (3) Cellulitis: Surrounding sacral ulcer. Will also be treated with Zosyn. (4) Pressure ulcer of coccygeal region, stage 3: Wound care consult - Seen by the wound care nurse today who knows the patient from the wound center. Recommends continued aquacel ag with optifoam and change every other day. Offload pressure from this area at all times (5) Dementia: At baseline mental state as per her son on admission. She tends to wax and wane considerably. Continue ropinirole 0.5 mg 3 times daily Close monitoring of bowel movements although son reports this has not been a recent issue. (6) Seizure disorder: Continue Keppra 1 g twice daily Level pending (7) S/P CABG x 1: Continue aspirin, will reduce dose to once a day and place on DVT prophylaxis in the form of heparin Continue metoprolol tartrate although unclear why she is not on metoprolol succinate Continue atorvastatin 10 mg p.o. every morning (8) DVT prophylaxis: On aspirin 81 mg twice daily since her hip operation Heparin and reduce aspirin down to once a day while inpatient Son updated over the phone Admission and Anticipated Discharge Date Admission Date: November 06, 2019 Subjective Ms. Easley is non verbal at baseline and sleeping when I visited her this morning. Per nursing, she was wide awake during her bath this morning but has spent most of the rest of the morning sleeping except for her breakfast and pills which she did well taking. Physical Exam Physical Exam: General: no distress Eyes: normal inspection, PERLL Respiratory: chest non tender, clear to auscultation, normal breath sounds, no respiratory distress, no accessory muscle use Cardiac: regular rate and rhythm, no rub or gallop, no murmur, no edema, no jvd GI/: active bowel sounds, no abd pain or tenderness, soft, non distended Extremities: unable to assess, bedbound except for pivoting at baseline Neuro/Psych: sleeping, unable to assess orientation Skin: normal color, dry Results & Data Results & [facility] ([facility] Vital Signs (Past 12 Hours) Vital Signs Temp Pulse Resp BP Pulse Ox 11/07/19 06:49 36.6 C 81 16 119/63 96 11/07/19 01:49 37.1 C 94 H 16 107/60 96 PG Care Time/CCT Total # of Minutes Spent Total Time Spent with Patient: Total time spent is greater than 50% in coordination of care (as documented) at patient's floor/unit and/or counseling patient: Coding Level of Care Code 28493 Subseq Hosp Care Lvl 3 Diagnoses Catheter-associated urinary tract infection T83.511A; N39.0 Bacteremia R78.81 Cellulitis L03.90 Pressure ulcer of coccygeal region, stage 3 L89.153 Dementia F03.90 Dementia behavioral disturbance: without behavioral disturbance Dementia type: unspecified type Seizure disorder G40.909 S/P CABG x 1 Z95.1 DVT prophylaxis Z29.9 (1) Dementia Dementia behavioral disturbance: without behavioral disturbance Dementia type: unspecified type Qualified Code(s): F03.90 - Unspecified dementia without behavioral disturbance
[2019-11-07] MEDS: SODIUM CHLORIDE 0.9% 1000ML 1,000 ML IV SCH (13:10)
[2019-11-07] MEDS: PIPERACILLIN/TAZOBACTAM 4.5 GM in DEXTROSE 5% 100 ML IV SCH ×2 (13:24→21:11)
[2019-11-07] MEDS: LORazepam 0.5 MG TAB PO PRN (18:21)
[2019-11-07] MEDS: CELECOXIB 100 MG CAP PO SCH (20:57)
[2019-11-07] MEDS: CHOLECALCIFEROL 1,000 UNITS 25 MCG TAB PO SCH (20:58)
[2019-11-08] MEDS: SODIUM CHLORIDE 0.9% 1000ML 1,000 ML IV SCH ×2 (01:11→12:41)
[2019-11-08] MEDS: PIPERACILLIN/TAZOBACTAM 4.5 GM in DEXTROSE 5% 100 ML IV SCH ×3 (05:47→21:26)
[2019-11-08 07:18] LABS: Hemoglobin 9.4 g/dL (12.0-16.0); Mean Corpuscular Hemoglobin 28.7 pg (25-34); Mean Corpuscular Hgb Conc 31.3 g/dL (32-36); Mean Corpuscular Volume 91.7 fL (80-100); Mean Platelet Volume 9.6 fL (7.4-10.4); Platelet Count 141 K/uL (130-400); RDW Coefficient of Variation 14.6 % (11.5-14.5); Red Blood Count 3.27 M/uL (4.2-5.4)
[2019-11-08 07:46] LABS: Albumin Level 2.6 gm/dl (3.4-5.0); BUN Creatinine Ratio 20.8 (10-20); Calcium 8.4 mg/dl (8.5-10.1); Creatinine Clr Calc Pharmacy 34.9 ml/min; Est GFR (African American) 56.9; Est GFR (Non-African American) 49.1; Potassium 3.9 mmol/L (3.5-5.1)
[2019-11-08 07:48] LABS: Albumin Globulin Ratio 0.8 (0.9-2); Bilirubin,Total 0.4 mg/dl (0.2-1); Globulin 3.4 gm/dl (2.5-4.0)
[2019-11-08] MEDS: DOCUSATE SODIUM 100 MG CAP PO SCH (09:33)
[2019-11-08] MEDS: FERROUS SULFATE 325 MG TAB PO SCH ×2 (09:33→16:33)
[2019-11-08] MEDS: ASPIRIN 81 MG ECTAB PO SCH (09:34)
[2019-11-08] MEDS: FOLIC ACID 400 MCG TAB PO SCH (09:34)
[2019-11-08] MEDS: SACCHAROMYCES BOULARDII 250 MG CAP PO SCH (09:34)
[2019-11-08] MEDS: levETIRAcetam 500 MG TAB PO SCH ×2 (09:35→21:13)
[2019-11-08] MEDS: ATORVASTATIN 10 MG TAB PO SCH (09:36)
[2019-11-08] MEDS: METOPROLOL TARTRATE 25 MG TAB PO SCH (09:42)
[2019-11-08] MEDS: MIRABEGRON ER 25 MG TAB PO SCH (09:43)
[2019-11-08] MEDS: NYSTATIN POWDER 15GM BTL EXT SCH ×3 (09:43→21:14)
[2019-11-08] MEDS: THIAMINE HCL 50 MG TABLET PO SCH (09:44)
[2019-11-08] MEDS: risperiDONE 0.5 MG TABLET PO SCH ×3 (09:44→21:13)
[2019-11-08] MEDS: CYANOCOBALAMIN (VITAMIN B-12) 2,500 MCG TAB.SUBL SL SCH (09:46)
[2019-11-08] MEDS: HEPARIN SOD 5,000 UNIT/0.5 ML VIAL SQ SCH ×2 (09:47→21:14)
--- NOTE | 2019-11-08 14:22 | Hospitalist Progress Note ---
Date of Service November 08, 2019 Assessment & Plan (1) Catheter-associated urinary tract infection: Continue Zosyn based on prior ESBL urine cultures. Blood cultures taken and growing gram negative bacilli as above, will need US guided IV before discharge Urine cultures growing E.coli ESBL Unfortunately Ertapenem is the preferred treatment for ESBL but given Ms. Easley's recent history with seizure and intubation after 6 doses of ertapenem, will have to avoid carbapenems. Discussed patient's case with Dr. Krause on 11/07 from Infectious Disease at [facility]. He recommends staying with Zosyn since it is sensitive. (2) Bacteremia: Blood cultures with initial report of gram negative bacilli, awaiting further identification. Continue Zosyn as above Cultures will need to be redrawn 48 hours after original draw to ensure clearance of bacteria, otherwise source control has not been achieved and Sears catheter will need swapped out. (3) Cellulitis: Surrounding sacral ulcer. Will also be treated with Zosyn. (4) Pressure ulcer of coccygeal region, stage 3: Wound care consult - Seen by the wound care nurse today who knows the patient from the wound center. Recommends continued aquacel ag with optifoam and change every other day. Offload pressure from this area at all times (5) Dementia: At baseline mental state as per her son on admission. She tends to wax and wane considerably. Continue ropinirole 0.5 mg 3 times daily Close monitoring of bowel movements although son reports this has not been a recent issue. No bm yet this admission (6) Seizure disorder: Continue Keppra 1 g twice daily Level pending (7) S/P CABG x 1: Continue aspirin, will reduce dose to once a day and place on DVT prophylaxis in the form of heparin Continue metoprolol tartrate although unclear why she is not on metoprolol succinate Continue atorvastatin 10 mg p.o. every morning (8) DVT prophylaxis: On aspirin 81 mg twice daily since her hip operation Heparin and reduce aspirin down to once a day while inpatient Updated her son over the phone. He was concerned that patient was not a 1:1. Discussed patient with nurse who felt that the q15m checks were working well to keep her safe and patient will also be placed in a low bed. He will place patient on 1:1 if the q15 minute checks are not sufficient. Admission and Anticipated Discharge Date Admission Date: November 06, 2019 Subjective Ms. Easley is much more awake and alert today than she was yesterday. Per nursing, she slept well and her loratadine was given earlier in the evening than the day before. She is not able to verbalize needs or ROS Physical Exam Physical Exam: General: no distress Eyes: normal inspection, PERLL Respiratory: chest non tender, clear to auscultation, normal breath sounds, no respiratory distress, no accessory muscle use Cardiac: regular rate and rhythm, no rub or gallop, no murmur, no edema, no jvd GI/: active bowel sounds, no abd pain or tenderness, soft, non distended Extremities: normal range of motion, normal strength, non tender Neuro/Psych: alert, non verbal Skin: normal color, dry Results & Data Results & Data ([facility]) Vital Signs (Past 12 Hours) Vital Signs Temp Pulse Resp BP Pulse Ox 11/08/19 06:57 36.6 C 77 16 135/77 95 PG Care Time/CCT Total # of Minutes Spent Total Time Spent with Patient: Total time spent is greater than 50% in coordination of care (as documented) at patient's floor/unit and/or counseling patient: Coding Level of Care Code 33478 Subseq Hosp Care Lvl 3 Diagnoses Catheter-associated urinary tract infection T83.511A; N39.0 Bacteremia R78.81 Cellulitis L03.90 Pressure ulcer of coccygeal region, stage 3 L89.153 Dementia F03.90 Dementia behavioral disturbance: without behavioral disturbance Dementia type: unspecified type Seizure disorder G40.909 S/P CABG x 1 Z95.1 DVT prophylaxis Z29.9 (1) Dementia Dementia behavioral disturbance: without behavioral disturbance Dementia type: unspecified type Qualified Code(s): F03.90 - Unspecified dementia without behavioral disturbance
[2019-11-08] MEDS: LORazepam 0.5 MG TAB PO PRN (15:53)
[2019-11-08] MEDS: CHOLECALCIFEROL 1,000 UNITS 25 MCG TAB PO SCH (21:13)
[2019-11-08] MEDS: TRAMADOL HCL 50 MG TABLET PO PRN (21:13)
[2019-11-08] MEDS: CELECOXIB 100 MG CAP PO SCH (21:13)
[2019-11-09] MEDS: SODIUM CHLORIDE 0.9% 1000ML 1,000 ML IV SCH ×2 (00:36→13:03)
[2019-11-09] MEDS: PIPERACILLIN/TAZOBACTAM 4.5 GM in DEXTROSE 5% 100 ML IV SCH ×3 (05:38→22:37)
[2019-11-09] MEDS: LORazepam 0.5 MG TAB PO PRN (08:28)
[2019-11-09 08:48] LABS: Hematocrit (blood only) 27.2 % (37-47); Hemoglobin 8.7 g/dL (12.0-16.0); Mean Corpuscular Hemoglobin 28.8 pg (25-34); Mean Corpuscular Volume 90.1 fL (80-100); Mean Platelet Volume 10.4 fL (7.4-10.4); Platelet Count 137 K/uL (130-400); RDW Coefficient of Variation 14.5 % (11.5-14.5); RDW Standard Deviation 47.7 fL (36.4-46.3); Red Blood Count 3.02 M/uL (4.2-5.4); White Blood Count 4.21 K/uL (4.8-10.8)
[2019-11-09 09:18] LABS: BUN Creatinine Ratio 23.3 (10-20); Calcium 8.6 mg/dl (8.5-10.1); Creatinine Clr Calc Pharmacy 42.6 ml/min; Est GFR (African American) 72.4; Est GFR (Non-African American) 62.5; Potassium 4.1 mmol/L (3.5-5.1)
[2019-11-09] MEDS: CYANOCOBALAMIN (VITAMIN B-12) 2,500 MCG TAB.SUBL SL SCH (10:13)
[2019-11-09] MEDS: FERROUS SULFATE 325 MG TAB PO SCH ×2 (10:13→17:22)
[2019-11-09] MEDS: MIRABEGRON ER 25 MG TAB PO SCH (10:14)
[2019-11-09] MEDS: levETIRAcetam 500 MG TAB PO SCH ×2 (10:14→20:31)
[2019-11-09] MEDS: risperiDONE 0.5 MG TABLET PO SCH ×3 (10:14→20:31)
[2019-11-09] MEDS: SACCHAROMYCES BOULARDII 250 MG CAP PO SCH (10:14)
[2019-11-09] MEDS: DOCUSATE SODIUM 100 MG CAP PO SCH (10:14)
[2019-11-09] MEDS: HEPARIN SOD 5,000 UNIT/0.5 ML VIAL SQ SCH ×2 (10:14→20:33)
[2019-11-09] MEDS: ATORVASTATIN 10 MG TAB PO SCH (10:14)
[2019-11-09] MEDS: METOPROLOL TARTRATE 25 MG TAB PO SCH (10:14)
[2019-11-09] MEDS: FOLIC ACID 400 MCG TAB PO SCH (10:14)
[2019-11-09] MEDS: ASPIRIN 81 MG ECTAB PO SCH (10:15)
[2019-11-09] MEDS: THIAMINE HCL 50 MG TABLET PO SCH (10:15)
[2019-11-09] MEDS: NYSTATIN POWDER 15GM BTL EXT SCH ×3 (10:20→20:31)
--- NOTE | 2019-11-09 14:35 | Hospitalist Progress Note ---
Date of Service November 09, 2019 Assessment & Plan (1) Catheter-associated urinary tract infection: Continue Zosyn based on prior ESBL urine cultures. Urine cultures growing E.coli ESBL Unfortunately Ertapenem is the preferred treatment for ESBL but given Ms. Easley's recent history with seizure and intubation after 6 doses of ertapenem, will have to avoid carbapenems. Discussed patient's case with Dr. Krause on 11/07 from Infectious Disease at [facility]. He recommends staying with Zosyn since it is sensitive and treating for 8 days Sears catheter replaced - will need US guided IV before discharge (2) Bacteremia: Blood cultures with initial report of gram negative bacilli, awaiting further identification. Continue Zosyn as above Blood cultures taken and growing E.Coli ESBL in one vial. Repeat blood cultures drawn 11/08 (3) Cellulitis: Surrounding sacral ulcer. Will also be treated with Zosyn. (4) Pressure ulcer of coccygeal region, stage 3: Wound care consult - Seen by the wound care nurse who knows the patient from the wound center. Recommends continued aquacel ag with optifoam and change every other day. Offload pressure from this area at all times (5) Dementia: At baseline mental state as per her son on admission. She tends to wax and wane considerably. Continue ropinirole 0.5 mg 3 times daily and home daily ativan in the evening Close monitoring of bowel movements although son reports this has not been a recent issue. No bm yet this admission (6) Seizure disorder: Continue Keppra 1 g twice daily Level pending (7) S/P CABG x 1: Continue aspirin, will reduce dose to once a day and place on DVT prophylaxis in the form of heparin Continue metoprolol tartrate although unclear why she is not on metoprolol succinate Continue atorvastatin 10 mg p.o. every morning (8) Anemia: Normocytic, anemia of chronic disease Near baseline with hgb 8.7 (9) DVT prophylaxis: On aspirin 81 mg twice daily since her hip operation Heparin and reduce aspirin down to once a day while inpatient Updated her son and then her daughter Rosa M over the phone. Admission and Anticipated Discharge Date Admission Date: November 06, 2019 Subjective Ms. Easley was very drowsy on my assessment this morning but did wake up to tactile stimulus. She is not able to participate in ROS Physical Exam Physical Exam: General: no distress Eyes: normal inspection, PERLL Respiratory: chest non tender, clear to auscultation, normal breath sounds, no respiratory distress, no accessory muscle use Cardiac: regular rate and rhythm, no rub or gallop, no murmur, no edema, no jvd GI/: active bowel sounds, no abd pain or tenderness, soft, non distended Extremities: normal range of motion, normal strength, non tender Neuro/Psych: drowsy, non verbal Skin: normal color, dry Results & Data Results & Data ([facility]) Vital Signs (Past 12 Hours) Vital Signs Temp Pulse Resp BP Pulse Ox 11/09/19 07:16 36.8 C 64 16 139/61 96 PG Care Time/CCT Total # of Minutes Spent Total Time Spent with Patient: Total time spent is greater than 50% in coordination of care (as documented) at patient's floor/unit and/or counseling patient: Coding Level of Care Code 16069 Subseq Hosp Care Lvl 3 Diagnoses Catheter-associated urinary tract infection T83.511A; N39.0 Bacteremia R78.81 Cellulitis L03.90 Pressure ulcer of coccygeal region, stage 3 L89.153 Dementia F03.90 Dementia behavioral disturbance: without behavioral disturbance Dementia type: unspecified type Seizure disorder G40.909 S/P CABG x 1 Z95.1 Anemia D64.9 DVT prophylaxis Z29.9 (1) Dementia Dementia behavioral disturbance: without behavioral disturbance Dementia type: unspecified type Qualified Code(s): F03.90 - Unspecified dementia without behavioral disturbance
[2019-11-09] MEDS: CHOLECALCIFEROL 1,000 UNITS 25 MCG TAB PO SCH (20:31)
[2019-11-09] MEDS: CELECOXIB 100 MG CAP PO SCH (20:31)
[2019-11-09] MEDS: TRAMADOL HCL 50 MG TABLET PO PRN (20:33)
[2019-11-10] MEDS: PIPERACILLIN/TAZOBACTAM 4.5 GM in DEXTROSE 5% 100 ML IV SCH ×3 (05:27→21:21)
[2019-11-10 08:11] LABS: Creatinine Clr Calc Pharmacy 43.7 ml/min; Est GFR (African American) 74.5; Est GFR (Non-African American) 64.3
[2019-11-10 09:28] LABS: Hemoglobin 8.9 g/dL (12.0-16.0); Mean Corpuscular Hgb Conc 31.8 g/dL (32-36); Mean Corpuscular Volume 91.2 fL (80-100); Mean Platelet Volume 10.4 fL (7.4-10.4); Platelet Count 150 K/uL (130-400); RDW Coefficient of Variation 14.1 % (11.5-14.5); RDW Standard Deviation 46.6 fL (36.4-46.3); Red Blood Count 3.07 M/uL (4.2-5.4); White Blood Count 4.28 K/uL (4.8-10.8)
[2019-11-10 09:33] LABS: Albumin Level 2.5 gm/dl (3.4-5.0); BUN Creatinine Ratio 17.4 (10-20); Calcium 9.1 mg/dl (8.5-10.1); Creatinine Clr Calc Pharmacy 42.6 ml/min; Est GFR (African American) 72.4; Est GFR (Non-African American) 62.5
[2019-11-10 09:36] LABS: Albumin Globulin Ratio 0.8 (0.9-2); Bilirubin,Total 0.3 mg/dl (0.2-1); Globulin 3.2 gm/dl (2.5-4.0); Total Protein 5.7 gm/dl (6.4-8.2)
[2019-11-10] MEDS: FERROUS SULFATE 325 MG TAB PO SCH ×2 (10:48→19:39)
[2019-11-10] MEDS: DOCUSATE SODIUM 100 MG CAP PO SCH (10:49)
[2019-11-10] MEDS: ASPIRIN 81 MG ECTAB PO SCH (10:49)
[2019-11-10] MEDS: SACCHAROMYCES BOULARDII 250 MG CAP PO SCH (10:49)
[2019-11-10] MEDS: FOLIC ACID 400 MCG TAB PO SCH (10:50)
[2019-11-10] MEDS: levETIRAcetam 500 MG TAB PO SCH ×2 (10:51→21:12)
[2019-11-10] MEDS: ATORVASTATIN 10 MG TAB PO SCH (10:52)
[2019-11-10] MEDS: METOPROLOL TARTRATE 25 MG TAB PO SCH (10:52)
[2019-11-10] MEDS: risperiDONE 0.5 MG TABLET PO SCH ×3 (10:53→21:12)
[2019-11-10] MEDS: THIAMINE HCL 50 MG TABLET PO SCH (10:54)
[2019-11-10] MEDS: MIRABEGRON ER 25 MG TAB PO SCH (10:54)
[2019-11-10] MEDS: CYANOCOBALAMIN (VITAMIN B-12) 2,500 MCG TAB.SUBL SL SCH (10:55)
[2019-11-10] MEDS: HEPARIN SOD 5,000 UNIT/0.5 ML VIAL SQ SCH ×2 (11:33→21:12)
--- NOTE | 2019-11-10 12:45 | Hospitalist Progress Note ---
Date of Service November 10, 2019 Assessment & Plan (1) Catheter-associated urinary tract infection: Continue Zosyn based on prior ESBL urine cultures. Urine cultures growing E.coli ESBL Unfortunately Ertapenem is the preferred treatment for ESBL but given Ms. Easley's recent history with seizure and intubation after 6 doses of ertapenem, will have to avoid carbapenems. Discussed patient's case with Dr. Krause on 11/07 from Infectious Disease at [facility]. He recommends staying with Zosyn since it is sensitive and treating for 8 days Sears catheter replaced - US guided IV ordered (2) Bacteremia: Blood cultures with initial report of gram negative bacilli, awaiting further identification. Continue Zosyn as above Blood cultures taken and growing E.Coli ESBL in one vial. Repeat blood cultures drawn 11/08 - ngtd (3) Cellulitis: Surrounding sacral ulcer. Continue Zosyn. (4) Pressure ulcer of coccygeal region, stage 3: Wound care consult - Seen by the wound care nurse who knows the patient from the wound center. Recommends continued aquacel ag with optifoam and change every other day. Offload pressure from this area at all times. Per wound nurse, no change in wound this admission. (5) Dementia: At baseline mental state as per her son on admission. She tends to wax and wane considerably. Continue ropinirole 0.5 mg 3 times daily and home daily ativan in the evening Close monitoring of bowel movements although son reports this has not been a recent issue. BM 11/09 (6) Seizure disorder: Continue Keppra 1 g twice daily Level pending (7) S/P CABG x 1: Continue aspirin, reduced dose to once a day and placed on DVT prophylaxis in the form of heparin Continue metoprolol tartrate Continue atorvastatin 10 mg p.o. 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 Patient eating 40-100% of her trays with assistance Discussed patient's diet with family - they do strive to get patient to consume as much protein as possible with supplements and high protein foods (10) DVT prophylaxis: On aspirin 81 mg twice daily since her hip operation Heparin and reduce aspirin down to once a day while inpatient Dispo: If BC negative tomorrow morning after 48 hours will discharge home. Patient's son updated by phone Admission and Anticipated Discharge Date Admission Date: November 06, 2019 Subjective Ms. Easley continues to be intermittently drowsy vs somewhat impulsive per nursing. At the time of my assessment she was sleeping. Physical Exam Physical Exam: General: no distress Eyes: normal inspection, PERLL Respiratory: chest non tender, clear to auscultation, normal breath sounds, no respiratory distress, no accessory muscle use Cardiac: regular rate and rhythm, no rub or gallop, no murmur, no edema, no jvd GI/: active bowel sounds, no abd pain or tenderness, soft, non distended Extremities: normal range of motion, normal strength, non tender Neuro/Psych: alert and oriented x 3, normal mood and affect Skin: normal color, dry Results & Data Results & Data ([facility]) Vital Signs (Past 12 Hours) Vital Signs Temp Pulse Resp BP Pulse Ox 11/10/19 07:14 36.8 C 63 18 178/70 H 98 11/10/19 05:28 58 L 14 96 PG Care Time/CCT Total # of Minutes Spent Total Time Spent with Patient: Total time spent is greater than 50% in coordination of care (as documented) at patient's floor/unit and/or counseling patient: Coding Level of Care Code 70414 Subseq Hosp Care Lvl 2 Diagnoses Catheter-associated urinary tract infection T83.511A; N39.0 Bacteremia R78.81 Cellulitis L03.90 Pressure ulcer of coccygeal region, stage 3 L89.153 Dementia F03.90 Dementia behavioral disturbance: without behavioral disturbance Dementia type: unspecified type Seizure disorder G40.909 S/P CABG x 1 Z95.1 Anemia D64.9 Malnourished E46 DVT prophylaxis Z29.9 (1) Dementia Dementia behavioral disturbance: without behavioral disturbance Dementia type: unspecified type Qualified Code(s): F03.90 - Unspecified dementia without behavioral disturbance
[2019-11-10] MEDS: NYSTATIN POWDER 15GM BTL EXT SCH ×2 (15:23→21:13)
[2019-11-10] MEDS: CELECOXIB 100 MG CAP PO SCH (21:12)
[2019-11-10] MEDS: CHOLECALCIFEROL 1,000 UNITS 25 MCG TAB PO SCH (21:12)
[2019-11-10] MEDS: LORazepam 0.5 MG TAB PO PRN (21:23)
[2019-11-11] MEDS: PIPERACILLIN/TAZOBACTAM 4.5 GM in DEXTROSE 5% 100 ML IV SCH ×2 (05:36→14:39)
[2019-11-11] MEDS: risperiDONE 0.5 MG TABLET PO SCH ×2 (09:48→14:40)
[2019-11-11] MEDS: DOCUSATE SODIUM 100 MG CAP PO SCH (09:49)
[2019-11-11] MEDS: CYANOCOBALAMIN (VITAMIN B-12) 2,500 MCG TAB.SUBL SL SCH (09:50)
[2019-11-11] MEDS: MIRABEGRON ER 25 MG TAB PO SCH (09:50)
[2019-11-11] MEDS: ASPIRIN 81 MG ECTAB PO SCH (09:50)
[2019-11-11] MEDS: FERROUS SULFATE 325 MG TAB PO SCH (09:51)
[2019-11-11] MEDS: levETIRAcetam 500 MG TAB PO SCH (09:51)
[2019-11-11] MEDS: ATORVASTATIN 10 MG TAB PO SCH (09:52)
[2019-11-11] MEDS: FOLIC ACID 400 MCG TAB PO SCH (09:52)
[2019-11-11] MEDS: METOPROLOL TARTRATE 25 MG TAB PO SCH (09:52)
[2019-11-11] MEDS: SACCHAROMYCES BOULARDII 250 MG CAP PO SCH (09:53)
[2019-11-11] MEDS: NYSTATIN POWDER 15GM BTL EXT SCH ×2 (09:53→14:40)
[2019-11-11] MEDS: THIAMINE HCL 50 MG TABLET PO SCH (09:54)
[2019-11-11] MEDS: HEPARIN SOD 5,000 UNIT/0.5 ML VIAL SQ SCH (10:01)
[2019-11-11 10:07] LABS: Hematocrit (blood only) 30.2 % (37-47); Hemoglobin 9.6 g/dL (12.0-16.0); Mean Corpuscular Hemoglobin 28.4 pg (25-34); Mean Corpuscular Hgb Conc 31.8 g/dL (32-36); Mean Corpuscular Volume 89.3 fL (80-100); Mean Platelet Volume 10.5 fL (7.4-10.4); Platelet Count 149 K/uL (130-400); RDW Coefficient of Variation 14.1 % (11.5-14.5); RDW Standard Deviation 46.5 fL (36.4-46.3); Red Blood Count 3.38 M/uL (4.2-5.4)
[2019-11-11 10:39] LABS: Albumin Level 2.7 gm/dl (3.4-5.0); BUN Creatinine Ratio 13.8 (10-20); Calcium 9.1 mg/dl (8.5-10.1); Creatinine Clr Calc Pharmacy 36.7 ml/min; Est GFR (African American) 60.3; Est GFR (Non-African American) 52.1; Potassium 3.8 mmol/L (3.5-5.1)
[2019-11-11 10:41] LABS: Albumin Globulin Ratio 0.7 (0.9-2); Bilirubin,Total 0.5 mg/dl (0.2-1); Globulin 3.7 gm/dl (2.5-4.0); Total Protein 6.4 gm/dl (6.4-8.2)
--- NOTE | 2019-11-11 12:16 | Discharge Summary ---
Date of Service November 11, 2019 Admission HPI Per Admitting Provider Mikaela Easley is an 84 year old female who presents to the ER on the advice of her urologist due to ESBL growing on urine culture. She has a recent indwelling urinary catheter due to a nonhealing sacral ulcer. Her son is at bedside and reports she is currently at her baseline. Fluctuates considerably but psychomotor agitation is not unusual for her. He reports she eats a regular diet with no history of aspirations but tends to pocket food. Requests minced and moist diet. She has baseline Alzheimer's dementia and lives with her son. At baseline is disorientated x3, nonverbal and bedbound. Prior to her hip fracture she could stand, pivot to chair with assistance. Recent considerable hospitalizations after receiving ertapenem for a catheter associated UTI which was suspected to have caused her first ever tonic-clonic seizure when she was intubated in the emergency room on September 25, 2019 and life flighted to [facility]. She was started on Keppra and managed to be extubated without significant issues however on discharge when she arrived home she was noted to have a swollen left hip and was not moving her left leg. Subsequent x-ray showed a left hip fracture and she was hospitalized here from October 03-2019 for surgical repair of this. Principal Diagnosis UTI, bacterimia Discharge Exam Constitutional WD/WN, vitals as above Respiratory normal respiratory effort, lungs clear to auscultation Cardiovascular RRR, no murmur, no edema Gastrointestinal (Abdomen) Inspection/Auscultation: abdomen normal to inspection and + abdomen distended; + abnormal bowel sounds Percussion/Palpation: abdomen soft; abdomen nontender Musculoskeletal no cyanosis or clubbing, extremities motor strength 5/5 Skin no rashes, warm and dry Neurologic moves all extremities and awake Psychiatric A+Ox3, euthymic affect Discharge Data Allergies Allergy/AdvReac Type Severity Reaction Status Date / Time ertapenem Allergy Severe seizures Unverified 11/06/19 16:35 enalapril Allergy Intermediate Cough Verified 11/06/19 16:35 escitalopram AdvReac Intermediate Hallucinati Verified 11/06/19 16:35 ons Hospital Course (1) Catheter-associated urinary tract infection: Continue Zosyn based on prior ESBL urine cultures. Urine cultures growing E.coli ESBL Unfortunately Ertapenem is the preferred treatment for ESBL but given Ms. Easley's recent history with seizure and intubation after 6 doses of ertapenem, will have to avoid carbapenems. Discussed patient's case with Dr. Krause on 11/07 from Infectious Disease at [facility]. He recommends staying with Zosyn since it is sensitive and treating for 8 days. Will make last day of treatement 11/14 Sears catheter replaced US guided IV placed for continued IV abx treatment at home (2) Bacteremia: Blood cultures taken and growing E.Coli ESBL in one vial. Repeat blood cultures drawn 11/08 - ngtd (3) Cellulitis: Improving, Surrounding sacral ulcer. Continue Zosyn. (4) Pressure ulcer of coccygeal region, stage 3: Wound care consult - Seen by the wound care nurse who knows the patient from the wound center. Recommends continued aquacel ag with optifoam and change every other day. Offload pressure from this area at all times. Per wound nurse, no change in wound this admission. Follow up with wound clinic (5) Dementia: At baseline mental state as per her son on admission. She tends to wax an d wane considerably. Continue ropinirole 0.5 mg 3 times daily and home daily ativan in the evening BM 11/09 (6) Seizure disorder: Continue Keppra 1 g twice daily Slightly elevated, will decrease Keppra to 750 mg bid (7) S/P CABG x 1: Continue aspirin, reduced dose to once a day and placed on DVT prophylaxis in the form of heparin - return to bid dosing for home Continue metoprolol tartrate Continue atorvastatin 10 mg p.o. every morning (8) Anemia: Normocytic, anemia of chronic disease Hgb stable, near baseline (9) Malnourished: Severe protein-calorie malnutrition [employer] Consultant on board - supplements ordered. Patient eating 40-100% of her trays with assistance Discussed patient's diet with family - they do strive to get patient to consume as much protein as possible with supplements and high protein foods (10) DVT prophylaxis: On aspirin 81 mg twice daily since her hip operation Heparin and reduce aspirin down to once a day while inpatient - return to bid doseing for home Total Time Total Time Spent Total Time Spent (In Minutes): greater than 30 minutes Discharge Plan Discharge Items Patient Disposition: Home - Home Health Services Reason For Visit: UTI Discharge Diagnosis: UTI, bacterimia Activity: Resume your previous activity Non-emergency contact: Primary Care Provider Call non-emergency contact if: you have any medication questions, your symptoms worsen and you have a fever Follow-up/Referrals: Aurora Estrada MD [Primary Care Provider] - 11/16/19 11:15 am (Please, follow up with Dr. Orourke on November 15 at 11:15 am. *If you need to change this appointment, call the office at [phone].) Yoana Howell PA-C [Physician Program Evaluation Consultant] - 11/22/19 11:00 am (Please, follow up at [facility]rology with Yoana Albert on WednesdayNovember 21 at 11:00 am. *The office is located at [address] in [place]. If you need to change this appointment, call the office at [phone].) Diet: Regular Addtl Attending Provider Instructions: (1) Catheter-associated urinary tract infection: Continue Zosyn, last day of treatment is November 14, to treat E. Coli ESBL in both the urine and blood. Repeat blood cultures did not grow any further bacteria. This will also treat any cellulitis surrounding the pressure ulcer (2) Pressure ulcer of coccygeal region, stage 3: Wound care was consulted while you were here. Recommends continued Aquacel ag with optifoam and change every other day. Offload pressure from this area at all times. Please follow up with the wound center next week (3) Seizure disorder: Keppra level in the blood was 48.3 which is just over the upper limit. Will decrease Keppra to 750 mg twice per day. As above, you will follow up with [facility] neurolgy here in [place] on 11/21. Please discuss any further medication dosing adjustment with them at that time. (4) Protein-calorie malnutrition Your appetite was good while you were here and I encourage you to continue supplementing with Boost or other protein drinks (5) DVT prophylaxis: Continue aspirin twice per day per orthopedics post hip fracture recommendations Pending Studies at Discharge: No Stand-Alone Forms: My [email or web address], Smoking Cessation Medications and DC Order Prescriptions: New piperacillin-tazobactam 4.5 gram recon soln 4.5 gm IV Q8H Qty: 15 RF: 0 Continued diclofenac sodium [Voltaren] 1 % gel 2 gm TOP QID PRN (Reason: JOINT PAIN) Qty: 100 RF: 0 metoprolol tartrate 25 mg tablet 25 mg PO QAM Qty: 90 RF: 3 acetaminophen [Tylenol] 325 mg capsule 325 - 650 mg PO BID RF: 0 cholecalciferol (vitamin D3) [Vitamin D3] 2,000 unit Capsule 2,000 units PO HS RF: 0 thiamine HCl (vitamin B1) [Vitamin B-1] 250 mg Tablet 250 mg PO QAM RF: 0 atorvastatin [Lipitor] 10 mg tablet 10 mg PO QAM RF: 0 methenamine hippurate [Hiprex] 1 gram tablet 1 gm PO HS RF: 0 celecoxib [Celebrex] 100 mg capsule 100 mg PO HS RF: 0 Myrbetriq 50 mg tablet extended release 24 hr 50 mg PO QAM RF: 0 polyethylene glycol 3350 [Miralax] 17 gram powder in packet 17 g PO BID PRN (Reason: Constipation) RF: 0 folic acid 800 mcg Tablet 0.8 mg PO QAM RF: 0 cyanocobalamin (vitamin B-12) [Vitamin B-12] 5,000 mcg Tablet, Sublingual 5,000 mcg PO QAM RF: 0 docusate sodium 100 mg Tablet 100 mg PO QAM PRN (Reason: Constipation) RF: 0 Saccharomyces boulardii 250 mg Capsule 250 mg PO QAM RF: 0 lorazepam 0.5 mg Tablet 0.5 mg PO DAILY PRN (Reason: Anxiety) RF: 0 nystatin 100,000 unit/gram Powder 1 applic TOPICAL TID RF: 0 risperidone 0.5 mg tablet 0.5 mg PO TID RF: 0 aspirin 81 mg Tablet,Delayed Release (Dr/Ec) 81 mg PO BID 30 Days Qty: 60 RF: 0 tramadol 50 mg Tablet 50 - 100 mg PO Q4H PRN (Reason: pain) Qty: 60 RF: 0 ferrous sulfate 325 mg (65 mg iron) Tablet,Delayed Release (Dr/Ec) 325 mg PO BIDM 30 Days Qty: 60 RF: 3 Changed levetiracetam 1,000 mg Tablet 750 mg PO BID Qty: 0 RF: 0 Discharge Orders: Discharge Order (Routine); Ordered 11/11/19 Ordered By: Hali Estrada Admission Data Admit Date/Time: 11/06/19 18:26 Attending Provider: Jerome Viveros Admit Provider: Ryland Irwin Primary Care Provider: Aurora Estrada V. Other Interventions: Discharge Summary Assessment (RN) Last Done: 11/11/19 15:08 DC Date/Time DO NOT enter until pt leaves facility: 11/11/19 17:12 Supervising Physician Co-Signing Physician Notes I supervised Hali Estrada NP on this patient's care. I examined the patient today independently of her. I discussed the plan of care with her with the plan being as written in her note except for any following changes/exceptions: None. Stable today. Catheter exchanged. Will continue Zosyn for an 8-day course total. Coding Level of Care Code D/C Day Management >30 mins Diagnoses Catheter-associated urinary tract infection T83.511A; N39.0 Bacteremia R78.81 Cellulitis L03.90 Pressure ulcer of coccygeal region, stage 3 L89.153 Dementia F03.90 Dementia behavioral disturbance: without behavioral disturbance Dementia type: unspecified type Seizure disorder G40.909 S/P CABG x 1 Z95.1 Anemia D64.9 Malnourished E46 DVT prophylaxis Z29.9
== END 2019-11-11 17:12 | disposition home health service (06) | DRG 698 ==
LOC: ED 15:16 → 3W 18:26 → SUATTDRO 18:26 → 3W 19:12

== ENCOUNTER 2019-11-13 10:09 | Inpatient (IN) ==
[2019-11-13] MEDS ORDERED: SODIUM CHLORIDE 0.9% 500 ML IV SCH (10:30)
--- NOTE | 2019-11-13 10:31 | Emergency Department Note ---
Impression & Plan Episode of unresponsiveness, Change in mental status, Acute UTI ED Provider Note NAME: RADHA FARRELL AGE: 84 SEX: F : 1935 ARRIVES VIA: Ambulance INFORMANT: [ems, nurses] ED PROVIDER(S): [Bladimir Stanton MD] CHIEF COMPLAINT: Mental status change HISTORY OF PRESENT ILLNESS: The patient is an 84-year-old female who presents by ambulance after having an alteration in her mental status. As per EMS, she was responsive only to sternal rub and this was a change as per her family. She does live at home. The patient was in our hospital and discharged 2 days ago. She was diagnosed with an ESBL urinary infection with bacteremia. She is currently on Zosyn. Marcelino ba is also on Keppra for seizures. The patient can give no history as she has significant baseline dementia. She is currently only moaning which as per EMS, is her baseline. She apparently returned to baseline mental state on the way to the ED. There was no reported seizure activity. The patient is on her medications as prescribed. No further history obtainable given her mental state. Of note, the patient's son arrived. He states that he was told earlier today that the patient had no pulse and was not breathing. She did not respond to a sternal rub. No CPR was done though. Son states the patient then responded to a sternal rub once the paramedics arrived. REVIEW OF SYSTEMS: Unobtainable given the mental state/dementia PMHx/PSHx: See Below SOCIAL HISTORY: See Below. PHYSICAL EXAM: GENERAL: Patient is in no acute distress. HEENT: No acute trauma, normocephalic atraumatic, mucous membranes moist, no nasal congestion, no scleral icterus. NECK: No stridor, no adenopathy, no meningismus, trachea is midline. LUNGS: Clear to auscultation bilaterally, no wheeze, no rhonchi, breath sounds equal. HEART: Without murmurs gallops or rubs, regular rate and rhythm. ABDOMEN: Soft, nontender, bowel sounds positive, no hernias, no peritonitis. Sears catheter draining clear yellow urine. EXTREMITIES: No cyanosis or edema, full range of motion of all the joints without pain or difficulty, no signs for acute trauma. NEUROLOGIC: Awake, moaning, moves all extremities, responds to painful stimuli. Cannot follow commands. SKIN: No rash, no jaundice, no diaphoresis. DIFFERENTIAL DIAGNOSIS: Infection, dehydration, metabolic abnormality, hypo/hyperglycemia, intracranial bleeding, seizure, electrolyte disturbance, anemia, hypoxia, cardiac sources, intracerebral event, toxicologic, neurologic, as well as other pathologies. EMERGENCY DEPARTMENT COURSE/PROCEDURES: ECG: Indication was weakness. The EKG shows a normal sinus rhythm with a left bundle branch block. The rate is 85. There are no PVCs, no concerning ST elevation. Some baseline artifact was present. The QTc is 502. Compared to an ECG from 04 Oct 2019, there was no significant change. Continuous Cardiac Monitoring: An order was placed for continuous cardiac monitoring. The monitor shows a rate of 65 with normal sinus rhythm. MEDICAL DECISION MAKING: There is no leukocytosis. The patient is anemic but this is baseline looking back at previous testing. There is a normal platelet count. Renal panel testing does not show renal failure or significant electrolyte abnormality. There was no liver enzyme elevation. The patient appeared to be in a euthyroid state. EKG shows a sinus rhythm, no acute ischemia. Cardiac enzyme testing x1 is not consistent with acute cardiac injury. Chest film does not show pneumonia or CHF. Brain CT shows no acute bleed or mass-effect. Some chronic findings were seen. On my exam, the patient was moaning, she was awake, she was moving all extremities. This was thought to be her mental baseline as per her son. The patient presents with an episode of unresponsiveness. There is a question as to whether she had a pulse or whether she was breathing prior to EMS arrival. She was not responding to a sternal rub. No CPR was performed. When the paramedics arrived, the patient did respond to a sternal rub and now she seems back to her mental baseline. Certainly, the patient may have had an unwitnessed seizure and was then found post ictal. She does have a seizure history. Dysrhythmia is a consideration as well. Given the unknown cause for her episode today, further work-up in the hospital, observation and monitoring was felt warranted. I spoke to the patient, I did speak with the son. Case management has been involved. The on-call hospitalist was consulted. Past Med/Surg History Medical History Anxiety (Chronic) Aortic stenosis (Chronic) Chest pain (Inactive) Diabetes (Resolved) Heart disease (Resolved) Hypertension (Chronic) Stroke (Resolved) UTI (urinary tract infection) Surgical History H/O aortic valve replacement History of colonoscopy History of cystoscopy with Cystolitholapaxy History of endoscopic gastrointestinal surgery S/P CABG (coronary artery bypass graft) S/P cataract surgery S/P hip replacement S/P tubal ligation Family History Father Myocardial infarction Mother Myocardial infarction Diabetes Stroke Rheumatoid arthritis Family/Other Cancer Other Hypertension Social History Preferred Language: Mauritian Communication Ability: Unable Delinquency Prevention Social Worker Required: No Beliefs That Will Affect Care: None marital status: / Current Living Situation: Family and Other Current Living Situation Comment: Caregivers provide assistance with ADL's. current occupational status: retired Feels Safe at Home: Yes Smoking Status: Unknown if ever smoked Hx Alcohol Use: No Hx Substance Use: No during the past year weight has: remained stable Seatbelt Use: always Allergies Allergies Allergy/AdvReac Type Severity Reaction Status Date / Time ertapenem AdvReac Severe seizures Unverified 11/13/19 14:49 enalapril AdvReac Intermediate Cough Verified 11/13/19 14:49 escitalopram AdvReac Intermediate Hallucinati Verified 11/13/19 11:11 ons Home Meds Home Medications Medication Instructions Recorded Confirmed cholecalciferol (vitamin D3) 2,000 units PO 04/04/18 11/13/19 [Vitamin D3] thiamine HCl (vitamin B1) [Vitamin 250 mg PO QAM 10/21/18 11/13/19 B-1] Myrbetriq 50 mg PO QAM 06/29/19 11/13/19 atorvastatin [Lipitor] 10 mg PO QAM 06/29/19 11/13/19 celecoxib [Celebrex] 100 mg PO HS 06/29/19 11/13/19 methenamine hippurate [Hiprex] 1 gm PO 06/29/19 11/13/19 cyanocobalamin (vitamin B-12) 5,000 mcg PO QAM 07/20/19 11/13/19 [Vitamin B-12] folic acid 0.8 mg PO QAM 07/20/19 11/13/19 polyethylene glycol 3350 [Miralax] 17 g PO BID PRN 09/19/19 11/13/19 Saccharomyces boulardii 250 mg PO QAM 10/04/19 11/13/19 docusate sodium 100 mg PO QAM 10/04/19 11/13/19 lorazepam 0.5 mg PO DAILY PRN 10/04/19 11/13/19 nystatin 1 applic TOPICAL TID PRN 10/04/19 11/13/19 risperidone 0.5 mg PO TID 10/04/19 11/13/19 acetaminophen [Tylenol Extra 500 mg PO BID 11/13/19 11/13/19 Strength] aspirin 81 mg PO QAM 11/13/19 11/13/19 Previous Rx's Medication Instructions Recorded diclofenac sodium 1 % topical gel 2 gm TOP QID PRN #100 gm 08/07/19 metoprolol tartrate 25 mg tablet 25 mg PO QAM #90 tab 08/17/19 ferrous sulfate 325 mg PO BIDM 30 Days #60 tab 10/09/19 tramadol 50 - 100 mg PO Q4H PRN #60 tab 10/09/19 levetiracetam 750 mg PO BID #60 tab 11/11/19 piperacillin-tazobactam 4.5 gm IV Q8H #15 ea 11/11/19 Results & Data (ED) Vital Signs Vital Signs - 24 hr 11/13/19 10:23 11/13/19 10:26 11/13/19 10:27 Temperature 36.4 C L Temperature Source Oral Pulse Rate 93 H 92 H 88 Pulse Rate from SpO2 Sensor 93 H 92 H Respiratory Rate 19 18 Blood Pressure 144/99 H 144/99 H Blood Pressure Mean 122 114 Pulse Oximetry 99 98 97 Oxygen Delivery Method Room Air Sepsis Recent Fever Within 48 Hours No Sepsis Action Taken by Nursing No Action Required 11/13/19 10:30 11/13/19 10:31 11/13/19 10:40 Temperature Temperature Source Pulse Rate 88 88 87 Pulse Rate from SpO2 Sensor 88 88 87 Respiratory Rate 17 19 19 Blood Pressure 150/87 H Blood Pressure Mean 108 Pulse Oximetry 98 97 97 Oxygen Delivery Method Sepsis Recent Fever Within 48 Hours Sepsis Action Taken by Nursing 11/13/19 10:48 11/13/19 10:50 11/13/19 11:00 Temperature Temperature Source Pulse Rate 86 93 H Pulse Rate from SpO2 Sensor 87 90 Respiratory Rate 17 18 Blood Pressure 171/151 H Blood Pressure Mean 165 Pulse Oximetry 97 99 98 Oxygen Delivery Method Room Air Sepsis Recent Fever Within 48 Hours Sepsis Action Taken by Nursing 11/13/19 11:01 11/13/19 11:10 11/13/19 11:38 Temperature Temperature Source Pulse Rate 91 H 87 80 Pulse Rate from SpO2 Sensor 90 88 Respiratory Rate 20 18 22 Blood Pressure Blood Pressure Mean Pulse Oximetry 98 98 Oxygen Delivery Method Sepsis Recent Fever Within 48 Hours Sepsis Action Taken by Nursing 11/13/19 11:39 11/13/19 11:40 11/13/19 11:50 Temperature Temperature Source Pulse Rate 82 78 83 Pulse Rate from SpO2 Sensor 83 78 82 Respiratory Rate 17 20 18 Blood Pressure 166/103 H Blood Pressure Mean 115 Pulse Oximetry 99 99 99 Oxygen Delivery Method Sepsis Recent Fever Within 48 Hours Sepsis Action Taken by Nursing 11/13/19 12:00 11/13/19 12:01 11/13/19 12:10 Temperature Temperature Source Pulse Rate 88 86 86 Pulse Rate from SpO2 Sensor 87 87 Respiratory Rate 18 17 18 Blood Pressure 173/92 H Blood Pressure Mean 131 Pulse Oximetry 98 97 Oxygen Delivery Method Sepsis Recent Fever Within 48 Hours Sepsis Action Taken by Nursing 11/13/19 12:20 11/13/19 12:30 11/13/19 12:31 Temperature Temperature Source Pulse Rate 89 81 83 Pulse Rate from SpO2 Sensor 88 82 Respiratory Rate 16 20 17 Blood Pressure 154/85 H Blood Pressure Mean 114 Pulse Oximetry 98 98 Oxygen Delivery Method Sepsis Recent Fever Within 48 Hours Sepsis Action Taken by Nursing 11/13/19 12:40 Temperature Temperature Source Pulse Rate 86 Pulse Rate from SpO2 Sensor Respiratory Rate 16 Blood Pressure Blood Pressure Mean Pulse Oximetry Oxygen Delivery Method Sepsis Recent Fever Within 48 Hours Sepsis Action Taken by Fpc Medications Current Medication List: was personally reviewed by me Laboratory Data Attestation: I reviewed the patient's lab results. Result diagrams: 11/13/19 10:46 11/13/19 10:46 Lab Results 11/13/19 11/13/19 11/13/19 Range/Units 10:46 10:46 10:54 WBC 5.02 (4.8-10.8) K/uL RBC 3.75 L (4.2-5.4) M/uL Hgb 10.9 L (12.0-16.0) g/dL Hct 34.3 L (37-47) % MCV 91.5 (80-100) fL MCH 29.1 (25-34) pg MCHC 31.8 L (32-36) g/dL RDW Std Deviation 48.5 H (36.4-46.3) fL RDW Coeff of [place] 14.5 (11.5-14.5) % Plt Count 204 (130-400) K/uL MPV 10.2 (7.4-10.4) fL Immature Gran % (Auto) 0.2 % Neut % (Auto) 53.1 % Lymph % (Auto) 32.7 % [place] % (Auto) 8.6 % Eos % (Auto) 4.8 % Baso % (Auto) 0.6 % Neut # (Auto) 2.67 (1.4-6.5) K/uL Lymph # (Auto) 1.64 (1.2-3.4) K/uL [place] # (Auto) 0.43 (0.11-0.59) K/uL Eos # (Auto) 0.24 (0-0.5) K/uL Baso # (Auto) 0.03 (0-0.2) K/uL Immature Gran # (Auto) 0.01 (0.00-0.02) K/uL Sodium 143 (136-145) mmol/L Potassium 4.1 (3.5-5.1) mmol/L Chloride 108 H (98-107) mmol/L Carbon Dioxide 25 (21-32) mmol/L Anion Gap 10.0 (3-11) BUN 18 (7-18) mg/dl Creatinine 0.94 (0.6-1.2) mg/dl Est Cr Clr Drug Dosing 39.2 ml/min Est GFR ( Amer) 65.0 Est GFR (Non-Af Amer) 56.1 BUN/Creatinine Ratio 19.0 (10-20) Glucose 93 (70-99) mg/dl Lactate 0.8 (0.4-2.0) mmol/L Calcium 9.5 (8.5-10.1) mg/dl Magnesium 2.1 (1.8-2.4) mg/dl Total Bilirubin 0.4 (0.2-1) mg/dl AST 36 (15-37) U/L ALT 29 (12-78) U/L Alkaline Phosphatase 100 (45-117) U/L Troponin I < 0.015 (0-0.045) ng/ml Total Protein 6.9 (6.4-8.2) gm/dl Albumin 2.9 L (3.4-5.0) gm/dl Globulin 4.0 (2.5-4.0) gm/dl Albumin/Globulin Ratio 0.7 L (0.9-2) TSH 1.270 (0.300-4.500) uIu/ml Administered Medications Discontinued Medications Sodium Chloride (Nss) 500 mls @ 999 mls/hr IV .Q31M SURJIT Stop: 11/13/19 11:00 Last Infusion: 11/13/19 12:00 Dose: 0 mls/hr Documented by: [id number] Admin: 11/13/19 11:12 Dose: 999 mls/hr Documented by: [id number] Imaging Data Radiologist's Impression: CT head/brain wo con CT DOSE: 1612.45 mGy.cm HISTORY: weakness, confusion TECHNIQUE: Multiaxial CT images of the head were performed without the use of intravenous contrast. A dose lowering technique was utilized adhering to the principles of ALARA. Comparison: 09/25/2019 Findings: The paranasal sinuses and mastoid air cells are clear. The calvarium and skull base are intact. The ventricles and sulci are within normal limits. There is no mass, hematoma, midline shift, or acute infarct. Old right cerebral infarct. Moderate age-related atrophy and chronic small vessel change. Impression: No acute intracranial abnormality. Old right cerebral infarct. Moderate chronic atrophy and chronic small vessel change. XR chest 1V portable CLINICAL HISTORY: weakness COMPARISON STUDY: Chest CT September 25, 2019. Chest radiograph October 04, 2019. FINDINGS: Lung volumes are normal. Lungs are clear. There is no pneumothorax or pleural effusion. Cardiac size is stable. Mediastinal contours are normal. There is no evidence for pulmonary edema. Incidental note is made of a prosthetic aortic valve and median sternotomy wires. There is extensive mitral annular robyn cification. Patient is rotated. Old proximal left humeral fracture is noted. IMPRESSION: No acute cardiopulmonary findings. No change in appearance of the chest. Blood Pressure Blood Pressure Findings: Elevated blood pressure Blood Pressure Disposition: further management by hospitalist Discharge Plan Visit Data *Final* Discharge Date/Time: 11/13/19 14:44 Chief Complaint: Illness ED Provider: Bladimir Stanton Discharge Problem: Episode of unresponsiveness, Change in mental status, Acute UTI Patient Disposition: Admitted As Inpatient Discharge Instructions Interventions: ED Discharge Assessment Last Done: 11/13/19 14:44 Discharge Problem: Change in mental status Qualifiers: Altered mental status type: somnolence Qualified Code(s): R40.0 - Somnolence
[2019-11-13 11:09] LABS: Basophils # (auto) 0.03 K/uL (0-0.2); Basophils % (auto) 0.6 %; Eosinophils # (auto) 0.24 K/uL (0-0.5); Eosinophils % (auto) 4.8 %; Hematocrit (blood only) 34.3 % (37-47); Hemoglobin 10.9 g/dL (12.0-16.0); Immature Granulocytes # (auto) 0.01 K/uL (0.00-0.02); Immature Granulocytes % (auto) 0.2 %; Lymphocytes # (auto) 1.64 K/uL (1.2-3.4); Lymphocytes % (auto) 32.7 %; Mean Corpuscular Hemoglobin 29.1 pg (25-34); Mean Corpuscular Hgb Conc 31.8 g/dL (32-36); Mean Corpuscular Volume 91.5 fL (80-100); Mean Platelet Volume 10.2 fL (7.4-10.4); Monocytes # (auto) 0.43 K/uL (0.11-0.59); Monocytes % (auto) 8.6 %; Neutrophils # (auto) 2.67 K/uL (1.4-6.5); Neutrophils % (auto) 53.1 %; Platelet Count 204 K/uL (130-400); RDW Coefficient of Variation 14.5 % (11.5-14.5); RDW Standard Deviation 48.5 fL (36.4-46.3); Red Blood Count 3.75 M/uL (4.2-5.4); White Blood Count 5.02 K/uL (4.8-10.8)
--- NOTE | 2019-11-13 11:26 | CT Scan Report ---
CT head/brain wo con CT DOSE: 1612.45 mGy.cm HISTORY: weakness, confusion TECHNIQUE: Multiaxial CT images of the head were performed without the use of intravenous contrast. A dose lowering technique was utilized adhering to the principles of ALARA. Comparison: 09/25/2019 Findings: The paranasal sinuses and mastoid air cells are clear. The calvarium and skull base are int act. The ventricles and sulci are within normal limits. There is no mass, hematoma, midline shift, or acute infarct. Old right cerebral infarct. Moderate age-related atrophy and chronic small vessel james nge. Impression: No acute intracranial abnormality. Old right cerebral infarct. Moderate chronic atrophy and chronic s mall vessel change. ACT 112: Negative or not required by law. The above report was generated using voice recognition software. It may contain grammatical, syntax or spelling errors. Electronically signed by: Adrian Stevens M.D. 11/13/2019 11:25 AM
--- NOTE | 2019-11-13 11:37 | XRay Report ---
XR chest 1V portable CLINICAL HISTORY: weakness COMPARISON STUDY: Chest CT September 25, 2019. Chest radiograph October 04, 2019. FINDINGS: Lung volumes are normal. Lungs are clear. There is no pneumothorax or pleural effusion. Car diac size is stable. Mediastinal contours are normal. There is no evidence for pulmonary edema. Incid ental note is made of a prosthetic aortic valve and median sternotomy wires. There is extensive yola l annular calcification. Patient is rotated. Old proximal left humeral fracture is noted. IMPRESSION: No acute cardiopulmonary findings. No change in appearance of the chest. ACT 112: Negative or not required by law. Electronically signed by: Chris Rodriguez M.D. 11/13/2019 11:36 AM
[2019-11-13 11:41] LABS: Albumin Level 2.9 gm/dl (3.4-5.0); Blood Urea Nitrogen 18 mg/dl (7-18); Calcium 9.5 mg/dl (8.5-10.1); Carbon Dioxide 25 mmol/L (21-32); Chloride 108 mmol/L (98-107); Creatinine Clr Calc Pharmacy 39.2 ml/min; Est GFR (Non-African American) 56.1; Glucose 93 mg/dl (70-99)
[2019-11-13 11:45] LABS: Alanine Aminotransferase 29 U/L (12-78); Albumin Globulin Ratio 0.7 (0.9-2); Alkaline Phosphatase 100 U/L (45-117); Bilirubin,Total 0.4 mg/dl (0.2-1); Potassium 4.1 mmol/L (3.5-5.1); Sodium 143 mmol/L (136-145); Total Protein 6.9 gm/dl (6.4-8.2); Troponin I < 0.015 ng/ml (0-0.045)
[2019-11-13 11:49] LABS: Aspartate Aminotransferase 36 U/L (15-37); Magnesium 2.1 mg/dl (1.8-2.4)
--- NOTE | 2019-11-13 12:34 | History & Physical Report ---
Date of Service November 13, 2019 Assessment & Plan (1) Loss of consciousness: Patient had unwitnessed loss of consciousness at home could be multifactorial. This could be seizure disorder, this could be vasovagal from rectal pressure from prolonged constipation. This could be related to her p revious aortic valve replacement. Does not clearly appear to be septic given her high blood pressure on presentation. Will be on telemetry unit to look for arrhythmia. Patient has typical home medications which could impact her sensorium including tramadol risperidone mybetriq, lorazepam. The last 3 will be held with Ultram offered for pain if present Encephalopathy from UTI could be considered however urine is clear at this time we are continuing on her Zosyn therapy and its undetermined whether repeat urine cultures would be that beneficial at this time given the fact that she is on ant ibiotics and he has no clinical signs of infection. Blood cultures were obtained on presentation (2) Seizure disorder: Patient initially had a Keppra reduced due to a slightly high Keppra level at 48 were normal is 46 or below. The son however was unable to flower picker the lower dose of Keppra and did not change those dosing patterns. Subsequently because of the concern that this could be a seizure she will be continued on Keppra 1000 and repeat Keppra level will be sent as this is a reference lab test. Neurology consultation will be undertaken for evaluation of her Keppra dosing. She does have a previous stroke with evidence of change on her CT scan of the head but no new changes (3) CAD (coronary artery disease): Patient was a known history of coronary artery disease continuing aspirin and metoprolol at this time (4) S/P aortic valve replacement with porcine valve: Systolic murmurs heard on presentation (5) Chronic kidney disease, stage 3a: Appropriate dosing of medications will be undertaken (6) RIOS (generalized anxiety disorder): Although history of anxiety disorder and depression and Ativan will be held at this time (7) Decubitus ulcer: Patient has a sacral decubitus ulcer approximately 3 cm x 1 cm is only stage II possibly stage III wound care consult be undertaken this is present on admission was present previously son feels were using Aquaphor therapy for it (8) DVT prophylaxis: Heparin therapy will be used given her renal function and age. Patient is a DNR. Given the frequent readmissions of the patient social service was will be consulted for possible discussions of placement or palliative care discussion for goals of care History of Present Illness Primary Care Provider: Aurora Estrada MD This patient was recently discharged from our facility she returns with altered mental status. Patient reportedly was in [place] in September after status epilepticus associated with a Pentam dose for infection. Subsequent to that she developed a subcapital hip fracture. Subsequent to that her recurrent ESBL E. coli UTI all requiring rehospitalization's. For this hospital encounter, reportedly she had a episode of unresponsiveness at home. When EMS arrived she was altered not making much sense. She was discharged from our facility on 10/10. During that hospital stay she was found to have an ESBL E. coli she is on home IV Zosyn therapy. Additionally her Keppra dose has been reduced from 1000-7 50 twice daily. She is a known history of seizures. 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 Patient although nonverbal typically does eat food. She is also being treated for a sacral decubitus ulcer. In the emergency department she is accompanied by her son she is moaning and writhing up clenching her abdomen during the evaluation. Her son is concerned that she not had a bowel movement for several days. The patient cannot verbalize what is exactly wrong with her. Evaluation in ER other than some initial hypertension was fairly unrevealing. She is admitted to our facility for reevaluation. Allergies Allergy/AdvReac Type Severity Reaction Status Date / Time ertapenem Allergy Severe seizures Unverified 11/13/19 11:11 enalapril Allergy Intermediate Cough Verified 11/13/19 11:11 escitalopram AdvReac Intermediate Hallucinati Verified 11/13/19 11:11 ons Home Medications Home Medications Medication Instructions Recorded Confirmed Type cholecalciferol (vitamin D3) 2,000 units PO HS 04/04/18 11/13/19 History [Vitamin D3] thiamine HCl (vitamin B1) [Vitamin 250 mg PO QAM 10/21/18 11/13/19 History B-1] Myrbetriq 50 mg PO QAM 06/29/19 11/13/19 History atorvastatin [Lipitor] 10 mg PO QAM 06/29/19 11/13/19 History celecoxib [Celebrex] 100 mg PO HS 06/29/19 11/13/19 History methenamine hippurate [Hiprex] 1 gm PO HS 06/29/19 11/13/19 History cyanocobalamin (vitamin B-12) 5,000 mcg PO QAM 07/20/19 11/13/19 History [Vitamin B-12] folic acid 0.8 mg PO QAM 07/20/19 11/13/19 History diclofenac sodium 1 % topical gel 2 gm TOP QID PRN #100 gm 08/07/19 11/13/19 Rx metoprolol tartrate 25 mg tablet 25 mg PO QAM #90 tab 08/17/19 11/13/19 Rx polyethylene glycol 3350 [Miralax] 17 g PO BID PRN 09/19/19 11/13/19 History Saccharomyces boulardii 250 mg PO QAM 10/04/19 11/13/19 History docusate sodium 100 mg PO QAM 10/04/19 11/13/19 History lorazepam 0.5 mg PO DAILY PRN 10/04/19 11/13/19 History nystatin 1 applic TOPICAL TID PRN 10/04/19 11/13/19 History risperidone 0.5 mg PO TID 10/04/19 11/13/19 History ferrous sulfate 325 mg PO BIDM 30 Days #60 tab 10/09/19 11/13/19 Rx tramadol 50 - 100 mg PO Q4H PRN #60 tab 10/09/19 11/13/19 Rx levetiracetam 750 mg PO BID #60 tab 11/11/19 11/13/19 Rx piperacillin-tazobactam 4.5 gm IV Q8H #15 ea 11/11/19 11/13/19 Rx acetaminophen [Tylenol Extra 500 mg PO BID 11/13/19 11/13/19 History Strength] aspirin 81 mg PO QAM 11/13/19 11/13/19 History Past Med/Surg History Social History Preferred Language: Egyptian Communication Ability: Unable Demolition Specialist Required: No Beliefs That Will Affect Care: None marital status: / Current Living Situation: Family and Other Current Living Situation Comment: Caregivers provide assistance with ADL's. current occupational status: retired Feels Safe at Home: Yes Smoking Status: Unknown if ever smoked Hx Alcohol Use: No Hx Substance Use: No during the past year weight has: remained stable Seatbelt Use: always Review of Systems Review of Systems: Unobtainable due to cognitive status Physical Exam Physical Exam: The patient appeared uncomfortable nonverbal moaning Vital signs as documented. Hypertension had come down from her initial prese ntation Head exam is normocephalic atraumatic no scleral icterus Neck is without JVD, thyromegaly, or carotid bruits. Lungs are clear to auscultation, with no moaning limits complete examination no focal loss of breath sounds Cardiac exam, Rhythm is regular. Systolic ejection murmur is heard, rubs or gallops. Abdominal exam reveals normal bowel sounds, soft seemingly tender left lower quadrant Rectal exam was performed with dark stool (patient takes iron) soft doughy stools in the rectal vault Extremities are nonedematous and both pedal pulses are normal. Neurologic exam is alert and she attempts to communicate does not specifically follow commands Skin is without bruises or rashes Results & Data Results & Data ([facility]) Vital Signs (Past 12 Hours) CT brain no acute intracranial abnormalities old right cerebral infarct moderate atrophy and small vessel change Chest x-ray no acute cardiopulmonary findings no change in appearance of the chest EKG shows sinus rhythm left bundle branch block no acute changes from previous Temp Pulse Resp BP Pulse Ox 11/13/19 11:39 82 17 166/103 H 99 11/13/19 11:38 80 22 11/13/19 11:10 87 18 98 11/13/19 11:01 91 H 20 98 11/13/19 11:00 93 H 18 171/151 H 98 11/13/19 10:50 86 17 99 11/13/19 10:48 97 11/13/19 10:40 87 19 97 11/13/19 10:31 88 19 150/87 H 97 11/13/19 10:30 88 17 98 11/13/19 10:27 97.5 F L 88 18 144/99 H 97 11/13/19 10:26 92 H 98 11/13/19 10:23 93 H 19 144/99 H 99 PG Care Time/CCT Total # of Minutes Spent Total Time Spent with Patient: Total time spent is greater than 50% in coordination of care (as documented) at patient's floor/unit and/or counseling patient: Coding Level of Care Code 11006 Initial Inpt Care Lvl 3 Diagnoses Loss of consciousness R40.20 Seizure disorder G40.909 CAD (coronary artery disease) I25.10 S/P aortic valve replacement with porcine valve Z95.3 Chronic kidney disease, stage 3a N18.3 IROS (generalized anxiety disorder) F41.1 Decubitus ulcer L89.90 DVT prophylaxis Z29.9
--- NOTE | 2019-11-13 14:43 | Electrocardiogram Report ---
Test Reason : Blood Pressure : / mmHG Vent. Rate : 085 BPM Atrial Rate : 085 BPM P-R Int : 166 ms QRS Dur : 152 ms QT Int : 422 ms P-R-T Axes : 078 -72 081 degrees QTc Int : 502 ms Poor data quality, interpretation may be adversely affected Normal sinus rhythm Left atrial enlargement Left axis deviation Left bundle branch block Abnormal ECG When compared with ECG of 04-OCT-2019 20:13, No significant change was found Confirmed by Dontae Rausch ([id number]) on 11/13/2019 2:43:30 PM Referred By: REFERRED SELF Confirmed By:Dontae Rausch
[2019-11-13] MEDS ORDERED: LORazepam 0.5 MG TAB PO PRN (14:45)
[2019-11-13] MEDS ORDERED: ALUMINUM/MAGNESIUM SUSP 30 ML UDC PO PRN (14:45)
[2019-11-13] MEDS ORDERED: MAGNESIUM HYDROXIDE SUSP 30 ML UDC PO PRN (14:45)
[2019-11-13] MEDS ORDERED: PIPERACILLIN/TAZOBACTAM SOD 4.5 GM VIAL IV SCH (14:45)
[2019-11-13] MEDS ORDERED: PIPERACILL/TAZOBAC CONSULT ACTIVE PRN (14:45)
[2019-11-13] MEDS ORDERED: TRAMADOL HCL 50 MG TABLET PO PRN (14:45)
[2019-11-13] MEDS ORDERED: ONDANSETRON INJ 2 MG/ML 2 ML VIAL IV PRN (14:45)
[2019-11-13] MEDS ORDERED: bisacodyL 10 MG SUPP PR ONE (16:00)
[2019-11-13] MEDS: SODIUM CHLORIDE 0.9% 1000ML 1,000 ML IV SCH (16:20)
[2019-11-13] MEDS: FERROUS SULFATE 325 MG TAB PO SCH (16:20)
[2019-11-13] MEDS: PIPERACILLIN/TAZOBACTAM 4.5 GM in DEXTROSE 5% 100 ML IV SCH (16:20)
[2019-11-13] MEDS ORDERED: METHENAMINE HIPPURATE 1 GM TAB PO SCH (21:00)
[2019-11-13] MEDS: CELECOXIB 100 MG CAP PO SCH (21:09)
[2019-11-13] MEDS: ACETAMINOPHEN 500 MG TAB PO SCH (21:09)
[2019-11-13] MEDS: ENOXAPARIN INJ 40 MG/0.4 ML SYR SQ SCH (21:10)
[2019-11-13] MEDS: levETIRAcetam 500 MG TAB PO SCH (21:10)
[2019-11-14] MEDS: PIPERACILLIN/TAZOBACTAM 4.5 GM in DEXTROSE 5% 100 ML IV SCH ×4 (00:14→23:47)
[2019-11-14] MEDS: SODIUM CHLORIDE 0.9% 1000ML 1,000 ML IV SCH ×2 (03:59→15:37)
--- NOTE | 2019-11-14 10:45 | Neurology Consultation ---
Date of Consultation November 14, 2019 Assessment & Plan (1) Change in mental status: Persistent alteration in mental status. Likely multifactorial and related to underlying multi-infarct dementia, encephalopathy related to recent UTI, medication side effect, possible postictal state, or recent stroke. Zosyn does not appear to interact with Keppra. I would recommend an EEG and brain MRI. (2) Seizure disorder: Continue with Keppra 1000 mg twice daily. Await results of up-to-date Keppra level which reflects this dosage. Her previous level of 48 was only slightly supratherapeutic. She had never reduced her dosage to 750 mg twice daily according to the admission history. Monitor for improvement in encephalopathy as above. Follow-up with results of EEG as above. I may consider reducing her dosage of Keppra or cross tapering to an alternative anticonvulsant. (3) Dementia: Suspected vascular dementia with associated behavioral disturbance, previously evaluated by psychiatry. It looks like her risperidone is on hold currently. Would not start a cholinesterase inhibitor such as donepezil at this point in time. As above, monitor for improvement of patient's encephalopathy. (4) H/O: stroke with residual effects: History of multiple strokes with a large right hemispheric stroke occurring in 2010 with resultant hemiparesis and hemianopsia. Patient had a small right temporal lobe and left cerebellar infarct in September 2018. Patient should continue with daily low-dose aspirin and atorvastatin. Cardioembolic stroke not excluded. Continue to monitor for atrial fibrillation. Consider obtaining an up-to-date echocardiogram. Patient is not likely a good candidate for anticoagulation, however, in light of what appears to be a severe dementia and seizure disorder. History of Present Illness Reason for Consultation: Possible seizure Requesting Physician: Mendel Irene Attending Physician: Mendel Irene History of Present Illness The patient is an 84-year old female who was found by her family, poorly responsive, lives at home, discharged from [facility] 2 days prior for treatment of urinary tract infection/bacteremia, on Zosyn. No witnessed seizure activity. Patient's mental status has been persistently altered since her readmission to the hospital yesterday. Past medical history notable for a large chronic right hemispheric stroke occurring in 2010 with resultant left hemiparesis and hemianopsia. She saw Dr. Zonia Spence during a hospitalization in September 2018 for 2 small acute infarcts, one within the right temporal lobe, and the other within the left cerebellum. Patient's history is also notable for severe dementia with associated behavioral disturbance, previously evaluated by psychiatry during a hospitalization in January 2019. Furthermore, she had presented to the emergency department on September 25, 2019 with status epilepticus and was subsequently transferred to [facility] during which time she was started on Keppra. She had a Keppra level drawn on November 07, 2019. The level was 48.3, slightly supratherapeutic, normal range 12- 46. It looks like her Keppra dosage was reduced from 1000 mg twice daily to 750 mg twice daily. However, the patient reportedly has continued with Keppra 1000 mg twice daily as the newer lower dose prescription was not started. A repeat level from her current admission is pending. A CT of the head completed yesterday revealed the chronic right hemispheric infarct as well as moderate generalized atrophy and chronic small vessel ischemic disease. No hemorrhage or acute process. I reviewed the images as well as the radiologist's interpretation of this test. The patient remains poorly arousable and is nonverbal. She is an unreliable historian. Allergies Allergy/AdvReac Type Severity Reaction Status Date / Time ertapenem AdvReac Severe seizures Unverified 11/13/19 14:49 enalapril AdvReac Intermediate Cough Verified 11/13/19 14:49 escitalopram AdvReac Intermediate Hallucinati Verified 11/13/19 11:11 ons Home Medications Home Medications Medication Instructions Recorded Confirmed Type cholecalciferol (vitamin D3) 2,000 units PO HS 04/04/18 11/13/19 History [Vitamin D3] thiamine HCl (vitamin B1) [Vitamin 250 mg PO QAM 10/21/18 11/13/19 History B-1] Myrbetriq 50 mg PO QAM 06/29/19 11/13/19 History atorvastatin [Lipitor] 10 mg PO QAM 06/29/19 11/13/19 History celecoxib [Celebrex] 100 mg PO HS 06/29/19 11/13/19 History methenamine hippurate [Hiprex] 1 gm PO HS 06/29/19 11/13/19 History cyanocobalamin (vitamin B-12) 5,000 mcg PO QAM 07/20/19 11/13/19 History [Vitamin B-12] folic acid 0.8 mg PO QAM 07/20/19 11/13/19 History diclofenac sodium 1 % topical gel 2 gm TOP QID PRN #100 gm 08/07/19 11/13/19 Rx metoprolol tartrate 25 mg tablet 25 mg PO QAM #90 tab 08/17/19 11/13/19 Rx polyethylene glycol 3350 [Miralax] 17 g PO BID PRN 09/19/19 11/13/19 History Saccharomyces boulardii 250 mg PO QAM 10/04/19 11/13/19 History docusate sodium 100 mg PO QAM 10/04/19 11/13/19 History lorazepam 0.5 mg PO DAILY PRN 10/04/19 11/13/19 History nystatin 1 applic TOPICAL TID PRN 10/04/19 11/13/19 History risperidone 0.5 mg PO TID 10/04/19 11/13/19 History ferrous sulfate 325 mg PO BIDM 30 Days #60 tab 10/09/19 11/13/19 Rx tramadol 50 - 100 mg PO Q4H PRN #60 tab 10/09/19 11/13/19 Rx levetiracetam 750 mg PO BID #60 tab 11/11/19 11/13/19 Rx piperacillin-tazobactam 4.5 gm IV Q8H #15 ea 11/11/19 11/13/19 Rx acetaminophen [Tylenol Extra 500 mg PO BID 11/13/19 11/13/19 History Strength] aspirin 81 mg PO QAM 11/13/19 11/13/19 History Patient History Medical History Anxiety (Chronic) Aortic stenosis (Chronic) Chest pain (Inactive) Diabetes (Resolved) Heart disease (Resolved) Hypertension (Chronic) Stroke (Resolved) UTI (urinary tract infection) Surgical History H/O aortic valve replacement History of colonoscopy History of cystoscopy with Cystolitholapaxy History of endoscopic gastrointestinal surgery S/P CABG (coronary artery bypass graft) S/P cataract surgery S/P hip replacement S/P tubal ligation Family History Father Myocardial infarction Mother Myocardial infarction Diabetes Stroke Rheumatoid arthritis Family/Other Cancer Other Hypertension Social History Preferred Language: Trinidadian Communication Ability: Impaired Car Scrubber Required: No Beliefs That Will Affect Care: None marital status: / Current Living Situation: Spouse, Family and Other Current Living Situation Comment: Lives with current occupational status: retired Other Information That Helps Us Care for You: No Feels Safe at Home: Yes Safety Concerns: Feels Safe At This Time Smoking Status: Never smoker Second Hand Exposure: No ; Hx Alcohol Use: No Hx Substance Use: No during the past year weight has: remained stable Seatbelt Use: always Review of Systems Review of Systems: Unobtainable due to cognitive status Exam (Neuro) Constitutional: + altered mental status and + frail appearing Eyes: PERRL and EOM intact bilaterally Visual acuity cannot be tested. Direct ophthalmoscopic examination cannot be completed due to poor patient cooperation. Cardiovascular: Vessels: normal carotid upstroke; no carotid bruit Neurologic: Oriented to:: negative Person, Place and Time Memory: negative Short Term Intact and Remote Intact Attention: negative Span Intact and Concentration Intact Language: negative Naming Objects and Repeating Phrases Fund of Knowledge: negative Current Events, Past History and Vocabulary Cranial Nerves: Normal III, IV, (Pupils are equal round and reactive to light bilaterally. Ocular movements intact observation, no nystagmus or gaze preference.); Abnorm II (Visual tate cannot be adequately tested although patient does briefly track objects and blinks to threat. Visual acuity cannot be tested.), V (Facial sensation cannot be tested), VII (Patient is edentulous and it is difficult to assess for a facial droop), VIII (Hearing cannot be adequately tested), IX, X (Elevation of the palate cannot be adequately tested), XI (Shoulder shrug cannot be adequately tested) and XII (Tongue protrusion cannot be adequately tested) Motor Strength: negative Normal Lower Extremities (Motor function cannot be adequately tested) and Normal Upper Extremities (Motor function could not be adequately tested) Motor Tone: Normal Lower Extremities and Normal Upper Extremities Muscle Bulk/Involuntary Movements: Muscle Atrophy; negative No Involuntary Movements Sensation: negative Light Touch Intact (Sensation cannot be adequately tested), Pain/Temperature Intact, Vibration Intact and Proprioception Intact Coordination: negative Normal (Coordination cannot be adequately tested) Deep Tendon Reflexes: Rt Triceps: 3+, Lt Triceps: 3+, Rt Biceps: 3+, Lt Biceps: 3+, Rt Brachioradialis: 3+, Lt Brachioradialis: 3+, Rt Patellar: 3+, Lt Patellar: 3+, Rt Ankle: 2+ and Lt Ankle: 2+ Special Tests: Babinski Present (Bilateral upgoing toes noted) Gait: negative Normal Station and Gait (Gait cannot be adequately tested) Details: The above neurological examination is very limited due to patient's persistently altered mental status. She is poorly responsive to voice but did open her eyes briefly to tactile stimulation. She did briefly track objects, no gross gaze preference or nystagmus. She is nonverbal. She does not follow commands. She does not attempt to speak. She exhibits generalized increased tone for the arms and legs and resistance to passive movement of the limbs. No myoclonic jerking or posturing observed. No resting tremor observed. Deep tendon reflexes are generally increased, both plantar responses upgoing. She does lie in bed, moderately tilted to the left. Results & Data ([facility]) Vital Signs (Past 12 Hours) Vital Signs Temp Pulse Pulse Resp BP Pulse Ox 11/14/19 07:52 36.3 C L 73 18 169/83 H 98 11/14/19 07:19 66 11/14/19 03:11 36.5 C 75 19 132/76 99 11/14/19 02:38 71 11/13/19 22:18 36.9 C 68 18 164/84 H 97 Laboratory Results WBC 5.02, hemoglobin 10.9, hematocrit 34.3, platelet count 204, sodium 143, potassium 4.1, BUN 18, creatinine 0.94, glucose 93, calcium 9.5, magnesium 2.1, AST 36, ALT 29, troponin less than 0.015, TSH 1.270 Diagnostic Findings Images of recent CT of the head described in the history of present illness. A CT angiogram of the neck completed on September 25, 2019 revealed calcific atheromatous plaque within the right carotid bulb, no evidence of hemodynamically significant stenosis. A CT angiogram of the head completed at that time was unremarkable. An electrocardiogram completed yesterday revealed a normal sinus rhythm, 85 bpm. An echocardiogram completed September 17, 2018 reveals severe concentric left ventricular hypertrophy with normal left ventricular systolic function. There was mild dilatation of the left atrium as well as a bioprosthetic aortic valve. Coding Level of Care Code 36973 Initial Inpt Care Lvl 3 Diagnoses Change in mental status R40.0 Altered mental status type: somnolence Seizure disorder G40.909 Dementia F03.90 Dementia behavioral disturbance: without behavioral disturbance Dementia type: unspecified type H/O: stroke with residual effects I69.30 (1) Change in mental status Altered mental status type: somnolence Qualified Code(s): R40.0 - Somnolence (2) Dementia Dementia behavioral disturbance: without behavioral disturbance Dementia type: unspecified type Qualified Code(s): F03.90 - Unspecified dementia without behavioral disturbance
[2019-11-14] MEDS: DOCUSATE SODIUM 100 MG CAP PO SCH (11:06)
[2019-11-14] MEDS: METOPROLOL TARTRATE 25 MG TAB PO SCH (11:06)
[2019-11-14] MEDS: FOLIC ACID 400 MCG TAB PO SCH (11:06)
--- NOTE | 2019-11-14 11:06 | Electroencephalogram ---
EEG Procedure Note Date of Service November 14, 2019 Start / End Times Start Time: 10:32 AM End Time: 10:52 AM Referring Physician Ruddy Quiñones MD History Seizure disorder, history of stroke and dementia Home Medication List Home Medications Medication Instructions Recorded Confirmed Type cholecalciferol (vitamin D3) 2,000 units PO HS 04/04/18 11/13/19 History [Vitamin D3] thiamine HCl (vitamin B1) [Vitamin 250 mg PO QAM 10/21/18 11/13/19 History B-1] Myrbetriq 50 mg PO QAM 06/29/19 11/13/19 History atorvastatin [Lipitor] 10 mg PO QAM 06/29/19 11/13/19 History celecoxib [Celebrex] 100 mg PO HS 06/29/19 11/13/19 History methenamine hippurate [Hiprex] 1 gm PO HS 06/29/19 11/13/19 History cyanocobalamin (vitamin B-12) 5,000 mcg PO QAM 07/20/19 11/13/19 History [Vitamin B-12] folic acid 0.8 mg PO QAM 07/20/19 11/13/19 History diclofenac sodium 1 % topical gel 2 gm TOP QID PRN #100 gm 08/07/19 11/13/19 Rx metoprolol tartrate 25 mg tablet 25 mg PO QAM #90 tab 08/17/19 11/13/19 Rx polyethylene glycol 3350 [Miralax] 17 g PO BID PRN 09/19/19 11/13/19 History Saccharomyces boulardii 250 mg PO QAM 10/04/19 11/13/19 History docusate sodium 100 mg PO QAM 10/04/19 11/13/19 History lorazepam 0.5 mg PO DAILY PRN 10/04/19 11/13/19 History nystatin 1 applic TOPICAL TID PRN 10/04/19 11/13/19 History risperidone 0.5 mg PO TID 10/04/19 11/13/19 History ferrous sulfate 325 mg PO BIDM 30 Days #60 tab 10/09/19 11/13/19 Rx tramadol 50 - 100 mg PO Q4H PRN #60 tab 10/09/19 11/13/19 Rx levetiracetam 750 mg PO BID #60 tab 11/11/19 11/13/19 Rx piperacillin-tazobactam 4.5 gm IV Q8H #15 ea 11/11/19 11/13/19 Rx acetaminophen [Tylenol Extra 500 mg PO BID 11/13/19 11/13/19 History Strength] aspirin 81 mg PO QAM 11/13/19 11/13/19 History Inpatient Medication List Acetaminophen (Tylenol) 500 mg PO BID [facility] Stop: 12/13/19 20:59 Last Admin: 11/13/19 21:09 Dose: 500 mg Documented by: [id number] Celecoxib (Celebrex) 100 mg PO HS [facility] Stop: 12/13/19 20:59 Last Admin: 11/13/19 21:09 Dose: 100 mg Documented by: [id number] Enoxaparin Sodium (Lovenox) 40 mg SQ Q24H [facility] Stop: 12/13/19 20:59 Last Admin: 11/13/19 21:10 Dose: 40 mg Documented by: [id number] Ferrous Sulfate (Feosol) 325 mg PO BIDM [facility] Stop: 12/13/19 16:59 Last Admin: 11/13/19 16:20 Dose: 325 mg Documented by: [id number] Sodium Chloride (Nss 1000ml) 1,000 mls @ 85 mls/hr IV .[id number] [facility] Stop: 12/13/19 14:44 Last Admin: 11/14/19 03:59 Dose: 85 mls/hr Documented by: [id number] Infusion: 11/14/19 03:59 Dose: 85 mls/hr Documented by: [id number] Admin: 11/13/19 16:20 Dose: 85 mls/hr Documented by: [id number] Piperacillin Sod/Tazobactam (Sod 4.5 gm/ Dextrose) 120 mls @ 30 mls/hr IV Q8H [facility]; Protocol Stop: 11/23/19 15:59 Last Infusion: 11/14/19 04:18 Dose: 0 mls/hr Documented by: [id number] Admin: 11/14/19 00:14 Dose: 30 mls/hr Documented by: [id number] Infusion: 11/13/19 20:20 Dose: 0 mls/hr Documented by: [id number] Admin: 11/13/19 16:20 Dose: 30 mls/hr Documented by: [id number] Levetiracetam (Keppra) 1,000 mg PO BID [facility] Stop: 12/13/19 20:59 Last Admin: 11/13/19 21:10 Dose: 1,000 mg Documented by: [id number] Lorazepam (Ativan) 0.5 mg PO DAILY PRN PRN Reason: Anxiety Stop: 12/13/19 14:44 Last Admin: 11/13/19 22:07 Dose: 0.5 mg Documented by: [id number] Discontinued Medications Bisacodyl (Dulcolax) 10 mg MA ONE ONE Stop: 11/13/19 16:01 Last Admin: 11/13/19 16:29 Dose: 10 mg Documented by: [id number] Sodium Chloride (Nss) 500 mls @ 999 mls/hr IV .Q31M [facility] Stop: 11/13/19 11:00 Last Infusion: 11/13/19 12:00 Dose: 0 mls/hr Documented by: [id number] Admin: 11/13/19 11:12 Dose: 999 mls/hr Documented by: [id number] Description This is a 21 electrode EEG with a single channel dedicated to limited EKG. The electrodes were placed in accordance with the International 10-20 system. The predominant background rhythm consists of poorly organized low to moderate amplitude theta activity and and admixed 10 Hz alpha rhythm. There is a prominent symmetrical frontal beta rhythm seen throughout the majority of the study. There is intermittent movement artifact with the patient frequently lifting her head up off the pillow observed on video. There is no focal or lateralized slowing. No epileptiform abnormalities observed. Interpretation This awake/drowsy EEG suggests a moderate nonspecific encephalopathy. No evidence of seizure activity. [facility] Procedure Codes Indication for Procedure (1) Seizure disorder: Neurology Neurology: 85861 EEG include record awake & drowsy
[2019-11-14] MEDS: SACCHAROMYCES BOULARDII 250 MG CAP PO SCH (11:07)
[2019-11-14] MEDS: ASPIRIN 81 MG ECTAB PO SCH (11:07)
[2019-11-14] MEDS: ACETAMINOPHEN 500 MG TAB PO SCH ×2 (11:07→20:40)
[2019-11-14] MEDS: FERROUS SULFATE 325 MG TAB PO SCH ×2 (11:07→16:09)
[2019-11-14] MEDS: levETIRAcetam 500 MG TAB PO SCH ×2 (11:07→20:38)
[2019-11-14] MEDS: ATORVASTATIN 10 MG TAB PO SCH (11:08)
[2019-11-14] MEDS: POLYETHYLENE (MIRALAX) 17 GM PACK PO SCH (11:08)
[2019-11-14 11:58] LABS: BUN Creatinine Ratio 19.2 (10-20); Calcium 9.3 mg/dl (8.5-10.1); Creatinine Clr Calc Pharmacy 39.2 ml/min; Est GFR (Non-African American) 56.1
[2019-11-14] MEDS ORDERED: GADOBUTROL 30ML VIAL IV PRN (13:15)
--- NOTE | 2019-11-14 13:25 | Magnetic Resonance Report ---
Brain MRI WITH AND WITHOUT CONTRAST HISTORY: Seizure, history of stroke TECHNIQUE: Multiplanar multisequence MRI of the brain was performed both before and after the intrave nous administration of contrast. COMPARISON STUDY: Brain MRI 09/16/2018. FINDINGS: Motion artifact. No areas of restricted diffusion to suggest acute infarction. The midline structures appear intact. No change in the periventricular white matter T2 hyperintensity likely repr esenting moderate microvascular ischemic change. Bilateral temporoparietal encephalomalacia with surr ounding gliosis also persists. This is consistent with sites of old infarcts. No definite mass, hemat madalyn, midline shift. Old lacunar infarcts seen within the cerebral hemispheres and brainstem. The para nasal sinuses and mastoid air cells are clear. The major vascular flow-voids at the skull base appear maintained. Near nondiagnostic evaluation of the postcontrast sequences. However, no definite abnorm al enhancement. Moderate atrophic changes are again noted. The anterior temporal lobes appear symmetr ic. IMPRESSION: 1. Significant motion artifact. However, no definite acute intracranial abnormality. 2. No change in the presumed moderate microvascular ischemic changes and old infarcts. ACT 112: Negative or not required by law. Electronically signed by: Madan Ortiz M.D. 11/14/2019 1:23 PM
[2019-11-14] MEDS: ENOXAPARIN INJ 40 MG/0.4 ML SYR SQ SCH (20:38)
[2019-11-14] MEDS: CELECOXIB 100 MG CAP PO SCH (20:38)
--- NOTE | 2019-11-14 22:29 | Hospitalist Progress Note ---
Date of Service November 14, 2019 Assessment & Plan (1) Loss of consciousness: Patient had unwitnessed loss of consciousness at home could be multifactorial. This could be seizure disorder, this could be vasovagal from rectal pressure from prolonged constipation. This could be related to her p revious aortic valve replacement. Does not clearly appear to be septic given her high blood pressure on presentation. Will be on telemetry unit to look for arrhythmia. Patient has typical home medications which could impact her sensorium including tramadol risperidone mybetriq, lorazepam. The last 3 will be held with Ultram offered for pain if present Encephalopathy from UTI could be considered however urine is clear at this time we are continuing on her Zosyn therapy and its undetermined whether repeat urine cultures would be that beneficial at this time given the fact that she is on ant ibiotics and he has no clinical signs of infection. Blood cultures were obtained on presentation On 11/14/19 Patient had MRI of brain which showed micro-ischemic changes with chronic inf arcts. Patient's EEG is showing encephalopathy. Had discussion with Dixon, about progression of this illness. He feels patient has deteriorated sharply over the past 2 months. He appears defensive when discussing pallaitive care consult, but is agreeable to it. He is worried that being on hospice means no treatment. I explained that given her condition it may be of benefit. Patient wants to further discuss case with neurology to see if patient can improve. (2) Seizure disorder: Patient initially had a Keppra reduced due to a slightly high Keppra level at 48 were normal is 46 or below. The son however was unable to pickling machine operator the lower dose of Keppra and did not change those dosing patterns. Subsequently because of the concern that this could be a seizure she will be continued on Keppra 1000 and repeat Keppra level will be sent as this is a reference lab test. Neurology consultation will be undertaken for evaluation of her Keppra dosing. She does have a previous stroke with evidence of change on her CT scan of the head but no new changes (3) CAD (coronary artery disease): Patient was a known history of coronary artery disease continuing aspirin and metoprolol at this time (4) S/P aortic valve replacement with porcine valve: Systolic murmurs heard on presentation (5) Chronic kidney disease, stage 3a: Appropriate dosing of medications will be undertaken (6) RIOS (generalized anxiety disorder): Although history of anxiety disorder and depression and Ativan will be held at this time (7) Decubitus ulcer: Patient has a sacral decubitus ulcer approximately 3 cm x 1 cm is only stage II possibly stage III wound care consult be undertaken this is present on admission was present previously son feels were using Aquaphor therapy for it (8) DVT prophylaxis: Heparin therapy will be used given her renal function and age. Patient is a DNR. Given the frequent readmissions of the patient social service was will be consulted for possible discussions of placement or palliative care discussion for goals of care Admission and Anticipated Discharge Date Admission Date: November 13, 2019 Subjective Patient is nonverbal. Review of Systems Review of Systems: All systems reviewed & are unremarkable except as noted in HPI & below Physical Exam Physical Exam: The patient appeared uncomfortable nonverbal moaning Vital signs as documented. Hypertension had come down from her initial presentation Head exam is normocephalic atraumatic no scleral icterus Neck is without JVD, thyromegaly, or carotid bruits. Lungs are clear to auscultation, with no moaning limits complete examination no focal loss of breath sounds Cardiac exam, Rhythm is regular. Systolic ejection murmur is heard, rubs or gallops. Abdominal exam reveals normal bowel sounds, soft seemingly tender left lower quadrant Rectal exam was performed with dark stool (patient takes iron) soft doughy stools in the rectal vault Extremities are nonedematous and both pedal pulses are normal. Neurologic exam is alert and she attempts to communicate does not specifically follow commands Skin is without bruises or rashes Results & Data Results & Data ([facility]) Vital Signs (Past 12 Hours) Vital Signs Temp Pulse Resp BP Pulse Ox 11/14/19 15:03 37.0 C 73 18 177/77 H 92 PG Care Time/CCT Total # of Minutes Spent Total Time Spent with Patient: Total time spent is greater than 50% in coordination of care (as documented) at patient's floor/unit and/or counseling patient: Coding Level of Care Code 11646 Subseq Hosp Care Lvl 3 Diagnoses Loss of consciousness R40.20 Seizure disorder G40.909 CAD (coronary artery disease) I25.10 S/P aortic valve replacement with porcine valve Z95.3 Chronic kidney disease, stage 3a N18.3 RIOS (generalized anxiety disorder) F41.1 Decubitus ulcer L89.90 DVT prophylaxis Z29.9 Time Spent (min) 40
[2019-11-15] MEDS: SODIUM CHLORIDE 0.9% 1000ML 1,000 ML IV SCH ×2 (04:07→15:39)
[2019-11-15] MEDS: METOPROLOL TARTRATE 25 MG TAB PO SCH (07:48)
[2019-11-15] MEDS: FERROUS SULFATE 325 MG TAB PO SCH ×2 (07:48→16:27)
[2019-11-15] MEDS: ATORVASTATIN 10 MG TAB PO SCH (07:49)
[2019-11-15] MEDS: FOLIC ACID 400 MCG TAB PO SCH (07:49)
[2019-11-15] MEDS: SACCHAROMYCES BOULARDII 250 MG CAP PO SCH (07:49)
[2019-11-15] MEDS: levETIRAcetam 500 MG TAB PO SCH (07:49)
[2019-11-15] MEDS: ASPIRIN 81 MG ECTAB PO SCH (07:50)
[2019-11-15] MEDS: PIPERACILLIN/TAZOBACTAM 4.5 GM in DEXTROSE 5% 100 ML IV SCH ×2 (07:54→15:39)
[2019-11-15] MEDS: ACETAMINOPHEN 500 MG TAB PO SCH (07:55)
[2019-11-15] MEDS: POLYETHYLENE (MIRALAX) 17 GM PACK PO SCH (07:55)
[2019-11-15] MEDS: DOCUSATE SODIUM 100 MG CAP PO SCH (07:55)
[2019-11-15 08:57] LABS: Hematocrit (blood only) 31.6 % (37-47); Hemoglobin 9.8 g/dL (12.0-16.0); Mean Corpuscular Hemoglobin 28.5 pg (25-34); Mean Corpuscular Volume 91.9 fL (80-100); Mean Platelet Volume 10.2 fL (7.4-10.4); Platelet Count 200 K/uL (130-400); RDW Coefficient of Variation 14.7 % (11.5-14.5); RDW Standard Deviation 49.1 fL (36.4-46.3); Red Blood Count 3.44 M/uL (4.2-5.4); White Blood Count 4.18 K/uL (4.8-10.8)
[2019-11-15 09:36] LABS: BUN Creatinine Ratio 14.2 (10-20); Calcium 9.3 mg/dl (8.5-10.1); Creatinine Clr Calc Pharmacy 36.8 ml/min; Est GFR (African American) 60.3; Est GFR (Non-African American) 52.1; Potassium 3.6 mmol/L (3.5-5.1)
--- NOTE | 2019-11-15 10:17 | Neurology Progress Note ---
Date of Service November 15, 2019 Assessment & Plan (1) Seizure disorder: Improving alteration in mental status. Patient may have had an unwitnessed seizure prior to admission, currently with an improving postictal state. A Keppra level from November 06 was 48.3, slightly supratherapeutic. Although she has continued with Keppra 1000 mg twice daily her clinical status has improved which potentially makes Keppra toxicity less likely. Given the possibility that she experienced a breakthrough seizure while on a therapeutic dose of Keppra I would recommend starting lamotrigine as an adjunctive anticonvulsant. She will start with lamotrigine 25 mg at bedtime with plan to gradually gradually uptitrate over the next few weeks. Follow-up with results of pending Keppra level. May consider reducing her Keppra dosage going forward. Admission and Anticipated Discharge Date Admission Date: November 13, 2019 Subjective Follow-up for change in mental status The patient is a bit more alert and follows simple commands this morning. She remains nonverbal. Her Keppra has been continued at 1000 mg twice daily, and up-to-date levetiracetam level is pending. An EEG completed yesterday reveals a moderate nonspecific encephalopathy, without evidence of seizure activity or epileptiform abnormalities. A brain MRI completed yesterday was negative for acute or subacute stroke. There is a large chronic right MCA territory stroke with associated encephalomalacia of the right parietotemporal lobe. There are multiple chronic brainstem strokes. There is moderate generalized atrophy and moderate chronic microvascular ischemic disease. I reviewed the images as well as the radiologist's interpretation of this test. Review of Systems Review of Systems: Unobtainable due to cognitive status Results & Data ([facility]) Vital Signs (Past 12 Hours) Vital Signs Temp Pulse Pulse Resp BP Pulse Ox 11/15/19 08:40 59 L 11/15/19 07:51 36.7 C 81 18 162/68 H 97 11/15/19 04:21 36.5 C 68 18 144/74 H 98 11/15/19 02:48 65 11/15/19 00:00 36.6 C 82 18 155/68 H 95 Exam (Neuro) Physical Exam: The patient is alert, she is nonverbal although will follow simple commands such as raising her arms. Pupils are round and reactive to light. Ocular movements are intact, patient tracks the examiner. Patient lies in bed tilted to the left. She is able to lift her legs out of bed to command as well. There are no dyskinesias, tremors, or other abnormal movements. Coding Level of Care Code 62949 Subseq Hosp Care Lvl 2 Diagnoses Seizure disorder G40.909
--- NOTE | 2019-11-15 12:36 | Palliative Care Consultation ---
Date of Consultation November 15, 2019 Assessment & Plan (1) Goals of care, counseling/discussion: This is an 84 year old female who resides at home with two of her daughters; presented to the [facility] after an unwitnessed episode of LOC. The patient has a history of a seizure disorder and after admission, likely this event was related to seizure medication/levels or was a vasovagal event. An MRI was performed on 10/17 without any remarkable changes and no acute signs of a new CVA. Chronic ischemic infarcts were present from previous episodes. An EEG was performed showing encephalopathy. Overall, the patients son, Dixon, expressed that his mother has been declining over the past two months. A neuro consult was placed and the patient is showing some signs of her return to her baseline over the past 24 hours. At baseline, she is full care, aside from being able to eat independently. She has a stage III decubitus ulcer on her sacrum. She does receive Home Health services and has caregivers in the home. Palliative Care was consulted to discuss goals of care. -I met with the patient in room 259-1. Her eyes were closed and she was in no apparent distress. She did open her eyes to my voice stimuli. -Her daughter was granted visitation for 30 minutes today and happened to be there when I was there. -I spoke at length with her daughter, Lucille, and her son and POA, Dixon, on the phone. -The patient is frail and non verbal. She did perk up when her daughter was there, and of course, she is not in her normal environment. -Understandably, their mother has gone through quite a bit over the past year with overall decline, a fractured hip, challenging recovery period; all while having a baseline of nonverbal related to previous strokes. -The patient does have a stage III decubitus ulcer that she goes to wound clinic for. She does eat regular consistency food without signs of aspiration and has not had any recent PNA. She is currently being treated for a UTI and does have a chronic lakhani catheter. -We discussed goals of care and how things were progressing at home. She lives with her daughters Lucille and Esperanza and also has caregivers that are two nurses that come 7:30 AM - 9:30 PM every weekday (through [employer] agency?) that help with care and provide support for the other caregivers. -Additionally she receives services through [facility] in [place], which they are comfortable with. -We discussed Hospice, which I feel she would qualify for with her CVA; however, the family was very adamant they did NOT want hospice. They were willing; however, to receive some information from CM. I spoke with CM and they will leave a hospice list as the patients son is coming this evening. -OVerall, the patient is showing some signs that she is improving back to baseline. -No symptom management needs. -I did complete a POLST form indicating: DNR/DNI, Limited Interventions, trial abx, and trial artificial nutrition. -The patients son, Dixon, was clear they were not ready to stop coming back to the hospital and if she returned home and declined they would be fine with bringing her back. -PPS: 30% -In discussion with the hospitalist, anticipated discharge today. Pt son plans to transport her home. -Please contact Palliative Care should we be of further assistance. (2) Seizure disorder: (3) Loss of consciousness: (4) Dementia: Dementia behavioral disturbance: without behavioral disturbance Dementia type: unspecified type Qualified Code(s): F03.90 - Unspecified dementia without behavioral disturbance (5) Chronic diastolic (congestive) heart failure: History of Present Illness Reason for Consultation: Goals of Care Requesting Physician: Dr. Irene Attending Physician: Mendel Irene History of Present Illness This is an 84 year old female who resides at home with two of her daughters; presented to the [facility] after an unwitnessed episode of LOC. The patient has a history of a seizure disorder and after admission, likely this event was related to seizure medication/levels or was a vasovagal event. An MRI was performed on 10/17 without any remarkable changes and no acute signs of a new CVA. Chronic ischemic infarcts were present from previous episodes. An EEG was performed showing encephalopathy. Overall, the patients son, Dixon, expressed that his mother has been declining over the past two months. A neuro consult was placed and the patient is showing some signs of her return to her baseline over the past 24 hours. At baseline, she is full care, aside from being able to eat independently. She does receive Home Health services and has caregivers in the home. Palliative Care was consulted to discuss goals of care. Please see A/P for further details. Thank you kindly for involving the palliative care team with this patient. We will follow if needed. Allergies Allergy/AdvReac Type Severity Reaction Status Date / Time ertapenem AdvReac Severe seizures Unverified 11/13/19 14:49 enalapril AdvReac Intermediate Cough Verified 11/13/19 14:49 escitalopram AdvReac Intermediate Hallucinati Verified 11/13/19 11:11 ons Home Medications Home Medications Medication Instructions Recorded Confirmed Type cholecalciferol (vitamin D3) 2,000 units PO HS 04/04/18 11/13/19 History [Vitamin D3] thiamine HCl (vitamin B1) [Vitamin 250 mg PO QAM 10/21/18 11/13/19 History B-1] Myrbetriq 50 mg PO QAM 06/29/19 11/13/19 History atorvastatin [Lipitor] 10 mg PO QAM 06/29/19 11/13/19 History celecoxib [Celebrex] 100 mg PO HS 06/29/19 11/13/19 History methenamine hippurate [Hiprex] 1 gm PO HS 06/29/19 11/13/19 History cyanocobalamin (vitamin B-12) 5,000 mcg PO QAM 07/20/19 11/13/19 History [Vitamin B-12] folic acid 0.8 mg PO QAM 07/20/19 11/13/19 History diclofenac sodium 1 % topical gel 2 gm TOP QID PRN #100 gm 08/07/19 11/13/19 Rx metoprolol tartrate 25 mg tablet 25 mg PO QAM #90 tab 08/17/19 11/13/19 Rx polyethylene glycol 3350 [Miralax] 17 g PO BID PRN 09/19/19 11/13/19 History Saccharomyces boulardii 250 mg PO QAM 10/04/19 11/13/19 History docusate sodium 100 mg PO QAM 10/04/19 11/13/19 History lorazepam 0.5 mg PO DAILY PRN 10/04/19 11/13/19 History nystatin 1 applic TOPICAL TID PRN 10/04/19 11/13/19 History risperidone 0.5 mg PO TID 10/04/19 11/13/19 History ferrous sulfate 325 mg PO BIDM 30 Days #60 tab 10/09/19 11/13/19 Rx tramadol 50 - 100 mg PO Q4H PRN #60 tab 10/09/19 11/13/19 Rx levetiracetam 750 mg PO BID #60 tab 11/11/19 11/13/19 Rx piperacillin-tazobactam 4.5 gm IV Q8H #15 ea 11/11/19 11/13/19 Rx acetaminophen [Tylenol Extra 500 mg PO BID 11/13/19 11/13/19 History Strength] aspirin 81 mg PO QAM 11/13/19 11/13/19 History Patient History Medical History Anxiety (Chronic) Aortic stenosis (Chronic) Chest pain (Inactive) Diabetes (Resolved) Heart disease (Resolved) Hypertension (Chronic) Stroke (Resolved) UTI (urinary tract infection) Surgical History H/O aortic valve replacement History of colonoscopy History of cystoscopy with Cystolitholapaxy History of endoscopic gastrointestinal surgery S/P CABG (coronary artery bypass graft) S/P cataract surgery S/P hip replacement S/P tubal ligation Family History Father Myocardial infarction Mother Myocardial infarction Diabetes Stroke Rheumatoid arthritis Family/Other Cancer Other Hypertension Social History Preferred Language: [place] Communication Ability: Impaired 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 Beliefs That Will Affect Care: None marital status: / Current Living Situation: Spouse, Family and Other Current Living Situation Comment: Lives with current occupational status: retired Feels Safe at Home: Yes Smoking Status: Never smoker Second Hand Exposure: No ; Hx Alcohol Use: No Hx Substance Use: No during the past year weight has: remained stable Seatbelt Use: always Review of Systems Review of Systems: Unobtainable due to cognitive status Physical Exam Constitutional: + ill appearing, + frail appearing and comfortable Respiratory: normal respiratory effort (room air ) Auscultation: + diminished lung sounds Cardiovascular: Heart Sounds: normal S1 and normal S2 Extremities: normal capillary refill and + edema Gastrointestinal (Abdomen): normal bowel sounds, soft, nontender, no hepatosplenomegaly Skin: normal turgor, + dry skin and + pallor stage III decubitus ulcer/dressing C/D/I Psychiatric: Orientation: alert Eye Contact: + fair eye contact Insight: + severely impaired insight Judgement: + severely impaired judgement Genitourinary: chronic indwelling lakhani catheter draining pale yellow Results & Data Vital Signs (Past 12 Hours) Vital Signs Temp Pulse Pulse Resp BP Pulse Ox 11/15/19 08:40 59 L 11/15/19 07:51 36.7 C 81 18 162/68 H 97 11/15/19 04:21 36.5 C 68 18 144/74 H 98 11/15/19 02:48 65 PG Care Time/CCT Total # of Minutes Spent Total Time Spent with Patient: Total time spent is greater than 50% in coordination of care (as documented) at patient's floor/unit and/or counseling patient: 100 Coding Level of Care Code 42654 Inpt Consult Level 4 Diagnoses Goals of care, counseling/discussion Z71.89 Seizure disorder G40.909 Loss of consciousness R40.20 Dementia F03.90 Dementia behavioral disturbance: without behavioral disturbance Dementia type: unspecified type Chronic diastolic (congestive) heart failure I50.32 Time Spent (min) 100 Time Spent Midlevel Total time spent 100 minutes with > 50% of that time spent assessing the patient, discussing goals of care with the patient's family, completing a POLST form with the pt daughter and POA and discussing with IDT.
--- NOTE | 2019-11-15 14:02 | XCELERA ---
[id number]
[2019-11-15] MEDS ORDERED: lamoTRIgine 25 MG TAB PO SCH (21:00)
--- NOTE | 2019-11-22 08:22 | Discharge Summary ---
Date of Service November 15, 2019 Admission HPI Per Admitting Provider This patient was recently discharged from our facility she returns with altered mental status. Patient reportedly was in [place] in September after status epilepticus associated with a Pentam dose for infection. Subsequent to that she developed a subcapital hip fracture. Subsequent to that her recurrent ESBL E. coli UTI all requiring rehospitalization's. For this hospital encounter, reportedly she had a episode of unresponsiveness at home. When EMS arrived she was altered not making much sense. She was discharged from our facility on 10/10. During that hospital stay she was found to have an ESBL E. coli she is on home IV Zosyn therapy. Additionally her Keppra dose has been reduced from 1000-7 50 twice daily. She is a known history of seizures. 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 Patient although nonverbal typically does eat food. She is also being treated for a sacral decubitus ulcer. In the emergency department she is accompanied by her son she is moaning and writhing up clenching her abdomen during the evaluation. Her son is concerned that she not had a bowel movement for several days. The patient cannot verbalize what is exactly wrong with her. Evaluation in ER other than some initial hypertension was fairly unrevealing. She is admitted to our facility for reevaluation. Principal Diagnosis loss of conscoiusness: possible breakthrough seizures Discharge Exam The patient appears comfortable. Vital signs as documented. Hypertension had come down from her initial presentation Head exam is normocephalic atraumatic no scleral icterus Neck is without JVD, thyromegaly, or carotid bruits. Lungs are clear to auscultation, with no moaning limits complete examination no focal loss of breath sounds Cardiac exam, Rhythm is regular. Systolic ejection murmur is heard, rubs or gallops. Abdominal exam reveals normal bowel sounds, soft seemingly tender left lower quadrant Rectal exam was performed with dark stool (patient takes iron) soft doughy stools in the rectal vault Extremities are nonedematous and both pedal pulses are normal. Neurologic exam is alert Skin is without bruises or rashes Discharge Data Allergies Allergy/AdvReac Type Severity Reaction Status Date / Time ertapenem AdvReac Severe seizures Unverified 11/13/19 14:49 enalapril AdvReac Intermediate Cough Verified 11/13/19 14:49 escitalopram AdvReac Intermediate Hallucinati Verified 11/13/19 11:11 ons Consultations 11/13/19 12:21 ED Decision to Admit Stat 11/13/19 14:45 Consult Case Management - Discharge Planning Routine 11/14/19 08:25 Consult Neurology Routine 11/14/19 22:48 Consult Palliative Care Routine Ordered Studies 11/13/19 10:25 CT head/brain wo con Stat 11/14/19 10:45 MR brain seizure wo/w con Routine Hospital Course (1) Loss of consciousness: Patient had unwitnessed loss of consciousness at home could be multifactorial. This could be seizure disorder, this could be vasovagal from rectal pressure from prolonged constipation. This could be related to her previous aortic valve replacement. Does not clearly appear to be septic given her high blood pressure on presentation. Will be on telemetry unit to look for arrhythmia. Patient has typical home medications which could impact her sensorium including tramadol risperidone mybetriq, lorazepam. The last 3 will be held with Ultram offered for pain if present Encephalopathy from UTI could be considered however urine is clear at this time we are continuing on her Zosyn therapy and its undetermined whether repeat urine cultures would be that beneficial at this time given the fact that she is on antibiotics and he has no clinical signs of infection. Blood cultures were obtained on presentation On 11/14/19 Patient had MRI of brain which showed micro-ischemic changes with chronic infarcts. Patient's EEG is showing encephalopathy. Had discussion with Dixon, about progression of this illness. He feels patient has deteriorated sharply over the past 2 months. He appears defensive when discussing pallaitive care consult, but is agreeable to it. He is worried that being on hospice means no treatment. I explained that given her condition it may be of benefit. Patient wants to further discuss case with neurology to see if patient can improve. On 11/15/19 Evaluated by Palliative care and Neuro: Neuro input: Improving alteration in mental status. Patient may have had an unwitnessed seizure prior to admission, currently with an improving postictal state. A Keppra level from November 06 was 48.3, slightly supratherapeutic. Although she has continued with Keppra 1000 mg twice daily her clinical status has improved which potentially makes Keppra toxicity less likely. Given the possibility that she experienced a breakthrough seizure while on a therapeutic dose of Keppra I would recommend starting lamotrigine as an adjunctive anticonvulsant. She will start with lamotrigine 25 mg at bedtime with plan to gradually gradually uptitrate over the next few weeks. Follow-up with results of pending Keppra level. May consider reducing her Keppra dosage going forward. Palliative care input: -We discussed goals of care and how things were progressing at home. She lives with her daughters Lucille and Esperanza and also has caregivers that are two nurses that come 7:30 AM - 9:30 PM every weekday (through [employer] agency?) that help with care and provide support for the other caregivers. -Additionally she receives services through [facility] in [place], which they are comfortable with. -We discussed Hospice, which I feel she would qualify for with her CVA; however, the family was very adamant they did NOT want hospice. They were willing; however, to receive some information from CM. I spoke with CM and they will leave a hospice list as the patients son is coming this evening. -OVerall, the patient is showing some signs that she is improving back to baseline POLST FORM: DNR/DNI, Limited Interventions, trial abx, and trial artificial nutrition. I snswered all of Dixon's questions. Agreeable to discharge. Also updated her daughter. Plan would be to ultimately switch keppra to lamictal. (2) Seizure disorder: Patient initially had a Keppra reduced due to a slightly high Keppra level at 48 were normal is 46 or below. The son however was unable to knot picker cloth the lower dose of Keppra and did not change those dosing patterns. Subsequently because of the concern that this could be a seizure she will be continued on Keppra 1000 and repeat Keppra level will be sent as this is a reference lab test. Neurology consultation will be undertaken for evaluation of her Keppra dosing. She does have a previous stroke with evidence of change on her CT scan of the head but no new changes (3) CAD (coronary artery disease): Patient was a known history of coronary artery disease continuing aspirin and metoprolol at this time (4) S/P aortic valve replacement with porcine valve: Systolic murmurs heard on presentation (5) Chronic kidney disease, stage 3a: Appropriate dosing of medications will be undertaken (6) RIOS (generalized anxiety disorder): Although history of anxiety disorder and depression and Ativan will be held at this time (7) Decubitus ulcer: Patient has a sacral decubitus ulcer approximately 3 cm x 1 cm is only stage II possibly stage III wound care consult be undertaken this is present on admission was present previously son feels were using Aquaphor therapy for it (8) DVT prophylaxis: Heparin therapy will be used given her renal function and age. Patient is a DNR. Given the frequent readmissions of the patient social service was will be consulted for possible discussions of placement or palliative care discussion for goals of care Total Time Total Time Spent Total Time Spent (In Minutes): 55 Total Time Includes: Examination of the Patient, Discharge Planning and Medication Reconciliation Discharge Plan Discharge Items Patient Disposition: Home - Home Health Services Reason For Visit: AMS Discharge Diagnosis: Altered mental status Activity: Resume your previous activity Non-emergency contact: Primary Care Provider Call non-emergency contact if: you have any medication questions Follow-up/Referrals: Aurora Estrada MD [Primary Care Provider] - Diet: Regular Diet Texture: Dental soft (bite-sized) Addtl Attending Provider Instructions: Aurora Estrada MD [Primary Care Provider] - 11/16/19 11:15 am (Please, follow up with Dr. Orourke on November 15 at 11:15 am. *If you need to change this appointment, call the office at [phone].) Yoana Howell PA-C [Physician Brick Maker] - 11/22/19 11:00 am (Please, follow up at [facility] with Yoana Albert on WednesdayNovember 21 at 11:00 am. *The office is located at [address] [place] [address] in [place]. If you need to change this appointment, call the office at [phone]. You will stop the lorazepam and the tramadol. Will recommend to hold off further treatment of UTI until other possiblities have been ruled out. The issue is that continue to treat bacteria in the urine can cause resistance. And confusion can have many causes. [facility] recommended to start lamictal with the plan to replace the keppra to help control her possible seizures.. Will defer to Neurology [facility] if they will like to continue this medication. continue lakhani and replace once eery month. Pending Studies at Discharge: No Stand-Alone Forms: My [facility], Smoking Cessation Medications and DC Order Prescriptions: New lamotrigine [Lamictal] 25 mg Tablet 25 mg PO QPM Qty: 30 RF: 0 Continued diclofenac sodium [Voltaren] 1 % gel 2 gm TOP QID PRN (Reason: JOINT PAIN) Qty: 100 RF: 0 metoprolol tartrate 25 mg tablet 25 mg PO QAM Qty: 90 RF: 3 cholecalciferol (vitamin D3) [Vitamin D3] 2,000 unit Capsule 2,000 units PO HS RF: 0 thiamine HCl (vitamin B1) [Vitamin B-1] 250 mg Tablet 250 mg PO QAM RF: 0 atorvastatin [Lipitor] 10 mg tablet 10 mg PO QAM RF: 0 methenamine hippurate [Hiprex] 1 gram tablet 1 gm PO HS RF: 0 celecoxib [Celebrex] 100 mg capsule 100 mg PO HS RF: 0 Myrbetriq 50 mg tablet extended release 24 hr 50 mg PO QAM RF: 0 polyethylene glycol 3350 [Miralax] 17 gram powder in packet 17 g PO BID PRN (Reason: Constipation) RF: 0 folic acid 800 mcg Tablet 0.8 mg PO QAM RF: 0 cyanocobalamin (vitamin B-12) [Vitamin B-12] 5,000 mcg Tablet, Sublingual 5,000 mcg PO QAM RF: 0 docusate sodium 100 mg Tablet 100 mg PO QAM RF: 0 Saccharomyces boulardii 250 mg Capsule 250 mg PO QAM RF: 0 nystatin 100,000 unit/gram Powder 1 applic TOPICAL TID PRN (Reason: .) RF: 0 risperidone 0.5 mg tablet 0.5 mg PO TID RF: 0 ferrous sulfate 325 mg (65 mg iron) Tablet,Delayed Release (Dr/Ec) 325 mg PO BIDM 30 Days Qty: 60 RF: 3 levetiracetam 750 mg tablet 750 mg PO BID Qty: 60 RF: 0 acetaminophen [Tylenol Extra Strength] 500 mg Tablet 500 mg PO BID RF: 0 aspirin 81 mg Tablet,Delayed Release (Dr/Ec) 81 mg PO QAM RF: 0 Discontinued lorazepam 0.5 mg Tablet 0.5 mg PO DAILY PRN (Reason: Anxiety) RF: 0 tramadol 50 mg Tablet 50 - 100 mg PO Q4H PRN (Reason: pain) Qty: 60 RF: 0 piperacillin-tazobactam 4.5 gram recon soln 4.5 gm IV Q8H Qty: 15 RF: 0 Discharge Orders: Discharge Order (Routine); Ordered 11/15/19 Ordered By: Mendel Irene Admission Data Admit Date/Time: 11/13/19 12:45 Attending Provider: Mendel Irene Admit Provider: Alton Hernandez Primary Care Provider: Aurora Estrada V. Other Providers: Alton Hernandez ; Ruddy Quiñones ; Sade Herrera Other Interventions: Discharge Summary Assessment (RN) Last Done: 11/15/19 18:10 DC Date/Time DO NOT enter until pt leaves facility: 11/15/19 18:11 Coding Level of Care Code D/C Day Management >30 mins Diagnoses Loss of consciousness R40.20 Seizure disorder G40.909 CAD (coronary artery disease) I25.10 S/P aortic valve replacement with porcine valve Z95.3 Chronic kidney disease, stage 3a N18.3 RIOS (generalized anxiety disorder) F41.1 Decubitus ulcer L89.90 DVT prophylaxis Z29.9 Time Spent (min) 32
== END 2019-11-15 18:11 | disposition home health service (06) | DRG 100 ==
LOC: ED 10:09 → SUATTDRO 12:45 → 2W 12:45 → 2N 17:40 → 2W 11-14 00:48

== ENCOUNTER 2019-12-06 12:56 | Inpatient (IN) ==
[2019-12-06] MEDS ORDERED: SODIUM CHLORIDE 0.9% 1000ML 1,000 ML IV SCH (14:15)
[2019-12-06 14:52] LABS: Basophils # (auto) 0.05 K/uL (0-0.2); Basophils % (auto) 0.8 %; Eosinophils # (auto) 0.24 K/uL (0-0.5); Hematocrit (blood only) 35.1 % (37-47); Hemoglobin 11.6 g/dL (12.0-16.0); Lymphocytes # (auto) 1.39 K/uL (1.2-3.4); Lymphocytes % (auto) 23.3 %; Mean Corpuscular Hemoglobin 29.5 pg (25-34); Mean Corpuscular Volume 89.3 fL (80-100); Mean Platelet Volume 10.8 fL (7.4-10.4); Monocytes # (auto) 0.62 K/uL (0.11-0.59); Monocytes % (auto) 10.4 %; Neutrophils # (auto) 3.67 K/uL (1.4-6.5); Neutrophils % (auto) 61.5 %; Platelet Count 167 K/uL (130-400); RDW Coefficient of Variation 14.3 % (11.5-14.5); RDW Standard Deviation 46.9 fL (36.4-46.3); Red Blood Count 3.93 M/uL (4.2-5.4); White Blood Count 5.97 K/uL (4.8-10.8)
--- NOTE | 2019-12-06 14:52 | Emergency Department Note ---
History of Present Illness General Chief complaint: Nausea Stated complaint: NAUSEA, NO PUTTING OUT A LOT OF URINE Time Seen by Provider: 12/06/19 14:13 Source: family Limitations: altered mental status History of Present Illness Provider complaint: Altered mental status Onset (ago): day(s) 3 84-year-old female with history of stroke, dementia, chronic indwelling Sears catheter, decubitus ulcer, seizure, hypertension, hyperlipidemia, coronary artery disease, congestive heart failure, and aortic stenosis presents emergency department with altered mental status. History is provided by the at bedside. reports that for the last 3 days patient has not been eating. He reports that she has been on a new antibiotic for UTI. He states that the patient is lost the ability to talk. He states that the spoke with her primary care Dr. Citlali Sr who told him to come to the emergency department. Home Medications Home Medications Medication Instructions Recorded Confirmed Type cholecalciferol (vitamin D3) 2,000 units PO HS 04/04/18 12/06/19 History [Vitamin D3] thiamine HCl (vitamin B1) [Vitamin 250 mg PO QAM 10/21/18 12/06/19 History B-1] Myrbetriq 50 mg PO QAM 06/29/19 12/06/19 History atorvastatin [Lipitor] 10 mg PO QAM 06/29/19 12/06/19 History cyanocobalamin (vitamin B-12) 5,000 mcg PO QAM 07/20/19 12/06/19 History [Vitamin B-12] folic acid 0.8 mg PO QAM 07/20/19 12/06/19 History diclofenac sodium 1 % topical gel 2 gm TOP QID PRN #100 gm 08/07/19 12/06/19 Rx polyethylene glycol 3350 [Miralax] 17 g PO BID PRN 09/19/19 12/06/19 History Saccharomyces boulardii 250 mg PO QAM 10/04/19 12/06/19 History docusate sodium 100 mg PO QAM 10/04/19 12/06/19 History nystatin 1 applic TOPICAL TID PRN 10/04/19 12/06/19 History ferrous sulfate 325 mg PO BIDM 30 Days #60 tab 10/09/19 12/06/19 Rx levetiracetam 750 mg PO BID #60 tab 11/11/19 12/06/19 Rx acetaminophen [Tylenol Extra 500 mg PO BID 11/13/19 12/06/19 History Strength] aspirin 81 mg PO QAM 11/13/19 12/06/19 History lamotrigine [Lamictal] 25 mg PO QPM #30 tab 11/15/19 12/06/19 Rx cefuroxime axetil 250 mg tablet 250 mg PO Q12H 14 Days #28 tab 11/30/19 12/06/19 Rx Allergies Allergy/AdvReac Type Severity Reaction Status Date / Time ertapenem AdvReac Severe seizures Unverified 12/06/19 14:17 enalapril AdvReac Intermediate Cough Verified 12/06/19 14:17 escitalopram AdvReac Intermediate Hallucinati Verified 12/06/19 14:17 ons Past Med/Surg History Medical History Anxiety (Chronic) Aortic stenosis (Chronic) Bacteremia Chest pain (Inactive) Diabetes (Resolved) Episode of unresponsiveness (Inactive) Goals of care, counseling/discussion Heart disease (Resolved) Hypertension (Chronic) Loss of consciousness Stroke (Resolved) UTI (urinary tract infection) Surgical History H/O aortic valve replacement History of colonoscopy History of cystoscopy with Cystolitholapaxy History of endoscopic gastrointestinal surgery S/P CABG (coronary artery bypass graft) S/P cataract surgery S/P hip replacement S/P tubal ligation Family History Father Myocardial infarction Mother Myocardial infarction Diabetes Stroke Rheumatoid arthritis Family/Other Cancer Other Hypertension Social History Smoking Status: Never smoker Second Hand Exposure: No; Hx Alcohol Use: No Hx Substance Use: No Preferred Language: Austrian Communication Ability: Impaired Medical Imaging Technician Required: No Beliefs That Will Affect Care: None marital status: / Current Living Situation: Spouse, Family and Other Current Living Situation Comment: Lives with current occupational status: retired Feels Safe at Home: Yes during the past year weight has: remained stable Seatbelt Use: always Review of Systems A total of 10 systems reviewed and were otherwise negative Physical Exam Vital Signs Vital Signs - 24 hr 12/06/19 13:01 12/06/19 14:51 12/06/19 15:06 Temperature 36.4 C L Temperature Source Oral Pulse Rate 69 64 66 Pulse Rate from SpO2 Sensor 64 66 Pulse Rhythm Regular Pulse Strength Normal Respiratory Rate 16 17 18 Respiratory Effort / Characteristics Non-Labored Respiratory Depth Normal Respiratory Pattern Regular Blood Pressure 105/61 150/77 H 146/93 H Blood Pressure Mean 75 103 100 Blood Pressure Position Sitting Pulse Oximetry 96 98 99 Oxygen Delivery Method Room Air Sepsis Recent Fever Within 48 Hours No Sepsis New/Unexplained Change in Mental Status N/A Sepsis Action Taken by Nursing No Action Required 12/06/19 15:31 12/06/19 16:00 12/06/19 16:30 Temperature Temperature Source Pulse Rate 66 73 72 Pulse Rate from SpO2 Sensor 66 73 Pulse Rhythm Pulse Strength Respiratory Rate 14 15 16 Respiratory Effort / Characteristics Respiratory Depth Respiratory Pattern Blood Pressure 166/98 H 175/87 H 154/87 H Blood Pressure Mean 135 132 116 Blood Pressure Position Pulse Oximetry 98 99 95 Oxygen Delivery Method Sepsis Recent Fever Within 48 Hours Sepsis New/Unexplained Change in Mental Status Sepsis Action Taken by Nursing Physical Exam EYES: Conjunctivae and EOM are normal. Pupils are equal, round, and reactive to light. Right eye exhibits no discharge. Left eye exhibits no discharge. No scleral icterus. NECK: Supple CV: Normal rate, regular rhythm, normal heart sounds and intact distal pulses. There is no peripheral edema. Palpable radial pulses bue. PULM/CHEST: Effort normal and breath sounds normal. No respiratory distress. No stridor. She has no wheezes. She has no rales. ABD: The abdomen is soft. : Chronic indwelling Sears catheter in place draining urine. NEURO: Baseline mental status per family but states that she is usually able to talk. Course Course 1413: The patient was evaluated in room A11. A complete history and physical exam was performed. Cardiac monitoring: An order was placed for continuous cardiac monitoring. The monitor shows a rate of 70 with sinus rhythm 1550: Vital signs stable. Labs do show the patient is dehydrated with BUN/c reatinine ratio greater than 40. Urine does appear infected. Urine culture from November 27 showed ESBL which was sensitive to amikacin, imipenem, cefoxitin, Zosyn, and ertapenem. at bedside states patient cannot have ertapenem because it causes seizures. Patient will be treated with Zosyn for UTI that is presumed failed outpatient treatment as well as patient will be continued get IV fluids for dehydration. [facility] hospitalist Dr. Irwin was notified of the patient. Administered Medications Discontinued Medications Sodium Chloride (Nss 1000ml) 1,000 mls @ 999 mls/hr IV .Q1H1M SURJIT Stop: 12/06/19 15:14 Last Infusion: 12/06/19 16:35 Dose: 0 mls/hr Documented by: [id number] Admin: 12/06/19 14:52 Dose: 999 mls/hr Documented by: [id number] Piperacillin Sod/Tazobactam Sod (Zosyn) 4.5 gm in 120 mls @ 240 mls/hr IV NOW ONE Stop: 12/06/19 16:20 Last Infusion: 12/06/19 16:35 Dose: 0 mls/hr Documented by: [id number] Admin: 12/06/19 16:03 Dose: 240 mls/hr Documented by: [id number] Medical Decision Making Laboratory Data Result diagrams: 12/06/19 14:36 12/06/19 14:36 Lab Results 12/06/19 12/06/19 12/06/19 Range/Units 14:34 14:36 14:36 WBC 5.97 (4.8-10.8) K/uL RBC 3.93 L (4.2-5.4) M/uL Hgb 11.6 L (12.0-16.0) g/dL Hct 35.1 L (37-47) % MCV 89.3 (80-100) fL MCH 29.5 (25-34) pg MCHC 33.0 (32-36) g/dL RDW Std Deviation 46.9 H (36.4-46.3) fL RDW Coeff of [place] 14.3 (11.5-14.5) % Plt Count 167 (130-400) K/uL MPV 10.8 H (7.4-10.4) fL Immature Gran % (Auto) 0.0 % Neut % (Auto) 61.5 % Lymph % (Auto) 23.3 % [place] % (Auto) 10.4 % Eos % (Auto) 4.0 % Baso % (Auto) 0.8 % Neut # (Auto) 3.67 (1.4-6.5) K/uL Lymph # (Auto) 1.39 (1.2-3.4) K/uL [place] # (Auto) 0.62 H (0.11-0.59) K/uL Eos # (Auto) 0.24 (0-0.5) K/uL Baso # (Auto) 0.05 (0-0.2) K/uL Immature Gran # (Auto) 0.00 (0.00-0.02) K/uL PT 10.7 (9.0-12.0) Seconds INR 1.0 (0.9-1.1) APTT 22.5 (21.0-31.0) Seconds PTT Ratio 0.8 Sodium (136-145) mmol/L Potassium (3.5-5.1) mmol/L Chloride (98-107) mmol/L Carbon Dioxide (21-32) mmol/L Anion Gap (3-11) BUN (7-18) mg/dl Creatinine (0.6-1.2) mg/dl Est Cr Clr Drug Dosing ml/min Est GFR ( Amer) Est GFR (Non-Af Amer) BUN/Creatinine Ratio (10-20) Glucose (70-99) mg/dl Lactate (0.4-2.0) mmol/L Calcium (8.5-10.1) mg/dl Magnesium (1.8-2.4) mg/dl Total Bilirubin (0.2-1) mg/dl AST (15-37) U/L ALT (12-78) U/L Alkaline Phosphatase (45-117) U/L Troponin I (0-0.045) ng/ml Total Protein (6.4-8.2) gm/dl Albumin (3.4-5.0) gm/dl Globulin (2.5-4.0) gm/dl Albumin/Globulin Ratio (0.9-2) Procalcitonin (0-0.5) ng/ml Urine Color Urine Appearance (Clear) Urine pH (4.5-7.5) Ur Specific [employer] (1.000-1.030) Urine Protein (Negative) Urine Glucose (UA) (Negative) Urine Ketones (Negative) Urine Blood (Negative) Urine Nitrite (Negative) Urine Bilirubin (Negative) Urine Urobilinogen (Negative) Ur Leukocyte Esterase (Negative) Urine WBC (Auto) (0-5) /hpf Urine RBC (Auto) (0-4) /hpf U Hyaline Cast (Auto) (0-5) /lpf U Epithel Cells (Auto) (0-5) /lpf Urine Bacteria (Auto) (Negative) Urine Yeast Blood Type A Positive Antibody Screen NEGATIVE 12/06/19 12/06/19 12/06/19 Range/Units 14:36 14:36 14:56 WBC (4.8-10.8) K/uL RBC (4.2-5.4) M/uL Hgb (12.0-16.0) g/dL Hct (37-47) % MCV (80-100) fL MCH (25-34) pg MCHC (32-36) g/dL RDW Std Deviation (36.4-46.3) fL RDW Coeff of [place] (11.5-14.5) % Plt Count (130-400) K/uL MPV (7.4-10.4) fL Immature Gran % (Auto) % Neut % (Auto) % Lymph % (Auto) % [place] % (Auto) % Eos % (Auto) % Baso % (Auto) % Neut # (Auto) (1.4-6.5) K/uL Lymph # (Auto) (1.2-3.4) K/uL [place] # (Auto) (0.11-0.59) K/uL Eos # (Auto) (0-0.5) K/uL Baso # (Auto) (0-0.2) K/uL Immature Gran # (Auto) (0.00-0.02) K/uL PT (9.0-12.0) Seconds INR (0.9-1.1) APTT (21.0-31.0) Seconds PTT Ratio Sodium 140 (136-145) mmol/L Potassium 4.5 (3.5-5.1) mmol/L Chloride 107 (98-107) mmol/L Carbon Dioxide 26 (21-32) mmol/L Anion Gap 7.0 (3-11) BUN 37 H (7-18) mg/dl Creatinine 0.86 (0.6-1.2) mg/dl Est Cr Clr Drug Dosing 42.8 ml/min Est GFR ( Amer) 72.4 Est GFR (Non-Af Amer) 62.5 BUN/Creatinine Ratio 42.9 H (10-20) Glucose 121 H (70-99) mg/dl Lactate (0.4-2.0) mmol/L Calcium 9.1 (8.5-10.1) mg/dl Magnesium 2.2 (1.8-2.4) mg/dl Total Bilirubin 0.3 (0.2-1) mg/dl AST 18 (15-37) U/L ALT 19 (12-78) U/L Alkaline Phosphatase 102 (45-117) U/L Troponin I < 0.015 (0-0.045) ng/ml Total Protein 7.0 (6.4-8.2) gm/dl Albumin 3.1 L (3.4-5.0) gm/dl Globulin 3.9 (2.5-4.0) gm/dl Albumin/Globulin Ratio 0.8 L (0.9-2) Procalcitonin < 0.05 (0-0.5) ng/ml Urine Color Dark Yellow Urine Appearance Cloudy A (Clear) Urine pH 5.0 (4.5-7.5) Ur Specific [employer] 1.023 (1.000-1.030) Urine Protein 1+ H (Negative) Urine Glucose (UA) Negative (Negative) Urine Ketones Trace H (Negative) Urine Blood Trace H (Negative) Urine Nitrite Positive A (Negative) Urine Bilirubin Negative (Negative) Urine Urobilinogen Negative (Negative) Ur Leukocyte Esterase 3+ H (Negative) Urine WBC (Auto) >30 H (0-5) /hpf Urine RBC (Auto) 0-4 (0-4) /hpf U Hyaline Cast (Auto) 1-5 (0-5) /lpf U Epithel Cells (Auto) >30 H (0-5) /lpf Urine Bacteria (Auto) 4+ H (Negative) Urine Yeast Not Reportable Blood Type Antibody Screen 12/06/19 Range/Units 15:02 WBC (4.8-10.8) K/uL RBC (4.2-5.4) M/uL Hgb (12.0-16.0) g/dL Hct (37-47) % MCV (80-100) fL MCH (25-34) pg MCHC (32-36) g/dL RDW Std Deviation (36.4-46.3) fL RDW Coeff of [place] (11.5-14.5) % Plt Count (130-400) K/uL MPV (7.4-10.4) fL Immature Gran % (Auto) % Neut % (Auto) % Lymph % (Auto) % [place] % (Auto) % Eos % (Auto) % Baso % (Auto) % Neut # (Auto) (1.4-6.5) K/uL Lymph # (Auto) (1.2-3.4) K/uL [place] # (Auto) (0.11-0.59) K/uL Eos # (Auto) (0-0.5) K/uL Baso # (Auto) (0-0.2) K/uL Immature Gran # (Auto) (0.00-0.02) K/uL PT (9.0-12.0) Seconds INR (0.9-1.1) APTT (21.0-31.0) Seconds PTT Ratio Sodium (136-145) mmol/L Potassium (3.5-5.1) mmol/L Chloride (98-107) mmol/L Carbon Dioxide (21-32) mmol/L Anion Gap (3-11) BUN (7-18) mg/dl Creatinine (0.6-1.2) mg/dl Est Cr Clr Drug Dosing ml/min Est GFR ( Amer) Est GFR (Non-Af Amer) BUN/Creatinine Ratio (10-20) Glucose (70-99) mg/dl Lactate 1.3 (0.4-2.0) mmol/L Calcium (8.5-10.1) mg/dl Magnesium (1.8-2.4) mg/dl Total Bilirubin (0.2-1) mg/dl AST (15-37) U/L ALT (12-78) U/L Alkaline Phosphatase (45-117) U/L Troponin I (0-0.045) ng/ml Total Protein (6.4-8.2) gm/dl Albumin (3.4-5.0) gm/dl Globulin (2.5-4.0) gm/dl Albumin/Globulin Ratio (0.9-2) Procalcitonin (0-0.5) ng/ml Urine Color Urine Appearance (Clear) Urine pH (4.5-7.5) Ur Specific [employer] (1.000-1.030) Urine Protein (Negative) Urine Glucose (UA) (Negative) Urine Ketones (Negative) Urine Blood (Negative) Urine Nitrite (Negative) Urine Bilirubin (Negative) Urine Urobilinogen (Negative) Ur Leukocyte Esterase (Negative) Urine WBC (Auto) (0-5) /hpf Urine RBC (Auto) (0-4) /hpf U Hyaline Cast (Auto) (0-5) /lpf U Epithel Cells (Auto) (0-5) /lpf Urine Bacteria (Auto) (Negative) Urine Yeast Blood Type Antibody Screen Imaging Data Radiologist's Impression: CT OF THE HEAD WITHOUT CONTRAST CLINICAL HISTORY: Altered mental status. COMPARISON STUDY: Head CT November 13, 2019. MRI of the brain November 14, 2019. CT DOSE: 881.47 mGy.cm TECHNIQUE: Helical axial images of the head were obtained without IV contrast. Automated exposure control was utilized for the study. A dose lowering technique was utilized adhering to the principles of ALARA. FINDINGS: No acute intracranial hemorrhage, midline shift or mass effect is present. The ventricular system is stable. Note is made of old right frontotemporal and left temporal lobe infarcts which are unchanged. The basilar cisterns are patent. No extra-axial collections are present. There are no findings to suggest acute dural sinus thrombosis or acute territorial infarct. No significant calvarial abnormalities are present. Visualized portions of the sinuses and mastoid air cells are clear. IMPRESSION: No acute intracranial findings. No change in appearance of the brain. ACT 112: Negative or not required by law. Electronically signed by: Chris Rodriguez M.D. 12/06/2019 3:33 PM Dictated: 12/06/19 1526 Transcribed: 12/06/[address] WITHOUT CONTRAST CT DOSE: 419.92 mGy.cm HISTORY: Altered mental status. Hematuria TECHNIQUE: Multiaxial CT images of the abdomen and pelvis were performed without contrast. A dose lowering technique was utilized adhering to the principles of ALARA. COMPARISON STUDY: Abdomen and pelvis CT 04/21/2019. FINDINGS: Lung bases: The patient is status post midline sternotomy and there is evidence of cardiac valve surgery. The heart is mildly enlarged and without pericardial effusion. The coronary arteries are densely calcified. The lung bases are clear noting bibasilar scarring/atelectasis. Liver: The contrast-enhanced liver is unremarkable. There is no intrahepatic biliary ductal dilatation. Gallbladder: Calcified gallstones are noted. There is no CT evidence of acute cholecystitis. Spleen: Normal in size and attenuation. Pancreas: Atrophic and grossly unremarkable. Adrenal glands: Unremarkable. Kidneys: No hydronephrosis. Bilateral cysts measure up to 6.5 cm. Abdominal vasculature: The abdominal aorta is normal in course and caliber noting advanced atherosclerotic calcification. Bowel: Suboptimal evaluation for bowel pathology due to the lack of intravenous and oral contrast. There is colonic fecal retention. No bowel obstruction is seen. There is mild to moderate colonic diverticulosis without CT evidence of acute diverticulitis. The appendix is well-visualized and normal Peritoneum: There is no intraperitoneal free air or abdominal ascites. Lymphadenopathy: None. Pelvic viscera: The bladder appears circumferentially thick walled. This may be due to decompression from a Sears catheter. The uterus is surgically absent. No adnexal lesion is seen. Skeletal structures: The skeletal structures are osteopenic. No change in the old compression deformities at L2 and L3. There is a new mild inferior endplate compression deformity of L4 demonstrating 10% loss of height. This demonstrates sclerosis and is consistent with a subacute fracture. Interval placement of a left total hip arthroplasty. Healing right anterior sixth rib fracture. No lytic or blastic lesions are seen. IMPRESSION: 1. Healing mild inferior endplate compression fracture at L4 and a healing right anterior sixth rib fracture. These are new from the prior study. 2. There is mild to moderate colonic diverticulosis without CT evidence of acute diverticulitis. 3. Cholelithiasis. 4. Cardiomegaly. 5. Additional findings as above. ACT 112: Negative or not required by law. Electronically signed by: Madan Ortiz M.D. 12/06/2019 3:40 PM Dictated: 12/06/19 1529 Transcribed: 12/06/19 1529 SINGLE VIEW CHEST CLINICAL HISTORY: Sepsis. FINDINGS: An AP, portable, upright chest radiograph is compared to study dated 11/13/2019. Correlation is made with chest CT dated 09/25/2019. The examination is degraded by portable technique and patient rotation. The patient is status post midline sternotomy and cardiac valve surgery. The heart is enlarged noting atherosclerotic calcification of the thoracic aorta. The pulmonary vasculature is noncongested. There are low lung volumes. Chronic interstitial thickening is similar to previous. No airspace consolidation or large pleural effusion is identified. No pneumothorax is seen. The skeletal structures are osteopenic. There is chronic posttraumatic deformity of the left humerus. IMPRESSION: Cardiomegaly with no active disease in the chest. ACT 112: Negative or not required by law. Electronically signed by: Bladimir Green M.D. 12/06/2019 3:13 PM Dictated: 12/06/191510 Transcribed: 12/06/191510 ECG Data Indication: + altered mental status Rate (beats per minute): 65 Additional Comments: EKG shows sinus rhythm with a rate of 65. AK interval 172. QRS 154. QTc 490. Left bundle branch block present. Left ventricular hypertrophy present. No significant change from the EKG done in October 2019 MDM Narrative Vital signs stable. Labs do show the patient is dehydrated with BUN/creatinine ratio greater than 40. Urine does appear infected. Urine culture from November 27 showed ESBL which was sensitive to amikacin, imipenem, cefoxitin, Zosyn, and ertapenem. at bedside states patient cannot have ertapenem because it causes seizures. Patient will be treated with Zosyn for UTI that is presumed failed outpatient treatment as well as patient will be continued get IV fluids for dehydration. [facility] hospitalist Dr. Irwin was notified of the patient. Impression & Plan Acute dehydration, Urinary tract infection due to extended-spectrum beta lactamase (ESBL) producing Escherichia coli, AMS (altered mental status) Discharge Plan Visit Data Chief Complaint: Nausea Stated Complaint: NAUSEA, NO PUTTING OUT A LOT OF URINE ED Provider: Lester Kaplan Discharge Problem: Acute dehydration, Urinary tract infection due to extended-spectrum beta lactamase (ESBL) producing Escherichia coli, AMS (altered mental status) Patient Disposition: Being Evaluated by Hospitalist Forms Stand Alone Forms: My [facility] Prescriptions Prescriptions: No Action diclofenac sodium [Voltaren] 1 % gel 2 gm TOP QID PRN (Reason: JOINT PAIN) Qty: 100 RF: 0 cefuroxime axetil 250 mg tablet 250 mg PO Q12H 14 Days Qty: 28 RF: 0 cholecalciferol (vitamin D3) [Vitamin D3] 2,000 unit Capsule 2,000 units PO HS RF: 0 thiamine HCl (vitamin B1) [Vitamin B-1] 250 mg Tablet 250 mg PO QAM RF: 0 atorvastatin [Lipitor] 10 mg tablet 10 mg PO QAM RF: 0 Myrbetriq 50 mg tablet extended release 24 hr 50 mg PO QAM RF: 0 polyethylene glycol 3350 [Miralax] 17 gram powder in packet 17 g PO BID PRN (Reason: Constipation) RF: 0 folic acid 800 mcg Tablet 0.8 mg PO QAM RF: 0 cyanocobalamin (vitamin B-12) [Vitamin B-12] 5,000 mcg Tablet, Sublingual 5,000 mcg PO QAM RF: 0 docusate sodium 100 mg Tablet 100 mg PO QAM RF: 0 Saccharomyces boulardii 250 mg Capsule 250 mg PO QAM RF: 0 nystatin 100,000 unit/gram Powder 1 applic TOPICAL TID PRN (Reason: .) RF: 0 ferrous sulfate 325 mg (65 mg iron) Tablet,Delayed Release (Dr/Ec) 325 mg PO BIDM 30 Days Qty: 60 RF: 3 levetiracetam 750 mg tablet 750 mg PO BID Qty: 60 RF: 0 acetaminophen [Tylenol Extra Strength] 500 mg Tablet 500 mg PO BID RF: 0 aspirin 81 mg Tablet,Delayed Release (Dr/Ec) 81 mg PO QAM RF: 0 lamotrigine [Lamictal] 25 mg Tablet 25 mg PO QPM Qty: 30 RF: 0 Referrals Referrals: Aurora Estrada MD [Primary Care Provider] - Discharge Problem: AMS (altered mental status) Qualifiers: Altered mental status type: unspecified Qualified Code(s): R41.82 - Altered mental status, unspecified
[2019-12-06 15:03] LABS: Partial Thromboplastin Ratio 0.8; Partial Thromboplastin Time 22.5 Seconds (21.0-31.0); Prothrombin Time 10.7 Seconds (9.0-12.0)
[2019-12-06 15:11] LABS: Alanine Aminotransferase 19 U/L (12-78); Albumin Level 3.1 gm/dl (3.4-5.0); Aspartate Aminotransferase 18 U/L (15-37); BUN Creatinine Ratio 42.9 (10-20); Blood Urea Nitrogen 37 mg/dl (7-18); Calcium 9.1 mg/dl (8.5-10.1); Carbon Dioxide 26 mmol/L (21-32); Chloride 107 mmol/L (98-107); Creatinine Clr Calc Pharmacy 42.8 ml/min; Est GFR (African American) 72.4; Est GFR (Non-African American) 62.5; Glucose 121 mg/dl (70-99); Magnesium 2.2 mg/dl (1.8-2.4); Potassium 4.5 mmol/L (3.5-5.1); Sodium 140 mmol/L (136-145)
--- NOTE | 2019-12-06 15:14 | XRay Report ---
SINGLE VIEW CHEST CLINICAL HISTORY: Sepsis. FINDINGS: An AP, portable, upright chest radiograph is compared to study dated 11/13/2019. Correlation is made with chest CT dated 09/25/2019. The examination is degraded by portable technique and patient rotation. The patient is status post midline sternotomy and cardiac valve surgery. The heart is enla rged noting atherosclerotic calcification of the thoracic aorta. The pulmonary vasculature is noncong ested. There are low lung volumes. Chronic interstitial thickening is similar to previous. No airspac e consolidation or large pleural effusion is identified. No pneumothorax is seen. The skeletal struct ures are osteopenic. There is chronic posttraumatic deformity of the left humerus. IMPRESSION: Cardiomegaly with no active disease in the chest. ACT 112: Negative or not required by law. Electronically signed by: Bladimir Green M.D. 12/06/2019 3:13 PM
[2019-12-06 15:16] LABS: Albumin Globulin Ratio 0.8 (0.9-2); Alkaline Phosphatase 102 U/L (45-117); Bilirubin,Total 0.3 mg/dl (0.2-1); Globulin 3.9 gm/dl (2.5-4.0); Troponin I < 0.015 ng/ml (0-0.045)
[2019-12-06 15:24] LABS: Appearance Urine Cloudy (Clear); Bacteria Urine Automated 4+ (Negative); Bilirubin Urine Negative (Negative); Blood Urine Trace (Negative); Color Urine Dark Yellow; Epithelial Cell Urine Auto >30 /lpf (0-5); Glucose Urine UA Negative (Negative); Ketones Urine Trace (Negative); Leukocyte Esterase Urine 3+ (Negative); Nitrite Urine Positive (Negative); Protein Urine 1+ (Negative); RBC Urine Automated 0-4 /hpf (0-4); Specific Gravity Urine 1.023 (1.000-1.030); Urobilinogen Urine Negative (Negative); WBC Urine Automated >30 /hpf (0-5)
--- NOTE | 2019-12-06 15:34 | CT Scan Report ---
CT OF THE HEAD WITHOUT CONTRAST CLINICAL HISTORY: Altered mental status. COMPARISON STUDY: Head CT November 13, 2019. MRI of the brain November 14, 2019. CT DOSE: 881.47 mGy.cm TECHNIQUE: Helical axial images of the head were obtained without IV contrast. Automated exposure con trol was utilized for the study. A dose lowering technique was utilized adhering to the principles o f ALARA. FINDINGS: No acute intracranial hemorrhage, midline shift or mass effect is present. The ventricular system is stable. Note is made of old right frontotemporal and left temporal lobe infarcts which are unchanged. The basilar cisterns are patent. No extra-axial collections are present. There are no find ings to suggest acute dural sinus thrombosis or acute territorial infarct. No significant calvarial a bnormalities are present. Visualized portions of the sinuses and mastoid air cells are clear. IMPRESSION: No acute intracranial findings. No change in appearance of the brain. ACT 112: Negative or not required by law. Electronically signed by: Chris Rodriguez M.D. 12/06/2019 3:33 PM
--- NOTE | 2019-12-06 15:42 | CT Scan Report ---
ABDOMEN AND PELVIS CT WITHOUT CONTRAST CT DOSE: 419.92 mGy.cm HISTORY: Altered mental status. Hematuria TECHNIQUE: Multiaxial CT images of the abdomen and pelvis were performed without contrast. A dose lo wering technique was utilized adhering to the principles of ALARA. COMPARISON STUDY: Abdomen and pelvis CT 04/21/2019. FINDINGS: Lung bases: The patient is status post midline sternotomy and there is evidence of cardiac valve surgery. The heart is mildly enlarged and without pericardial effusion. The coronary arteries a re densely calcified. The lung bases are clear noting bibasilar scarring/atelectasis. Liver: The contrast-enhanced liver is unremarkable. There is no intrahepatic biliary ductal dilatatio n. Gallbladder: Calcified gallstones are noted. There is no CT evidence of acute cholecystitis. Spleen: Normal in size and attenuation. Pancreas: Atrophic and grossly unremarkable. Adrenal glands: Unremarkable. Kidneys: No hydronephrosis. Bilateral cysts measure up to 6.5 cm. Abdominal vasculature: The abdominal aorta is normal in course and caliber noting advanced atheroscle rotic calcification. Bowel: Suboptimal evaluation for bowel pathology due to the lack of intravenous and oral contrast. Th ere is colonic fecal retention. No bowel obstruction is seen. There is mild to moderate colonic diver ticulosis without CT evidence of acute diverticulitis. The appendix is well-visualized and normal Peritoneum: There is no intraperitoneal free air or abdominal ascites. Lymphadenopathy: None. Pelvic viscera: The bladder appears circumferentially thick walled. This may be due to decompression from a Sears catheter. The uterus is surgically absent. No adnexal lesion is seen. Skeletal structures: The skeletal structures are osteopenic. No change in the old compression deformi ties at L2 and L3. There is a new mild inferior endplate compression deformity of L4 demonstrating 10 % loss of height. This demonstrates sclerosis and is consistent with a subacute fracture. Interval pl acement of a left total hip arthroplasty. Healing right anterior sixth rib fracture. No lytic or chioma tic lesions are seen. IMPRESSION: 1. Healing mild inferior endplate compression fracture at L4 and a healing right anterior sixth rib f racture. These are new from the prior study. 2. There is mild to moderate colonic diverticulosis without CT evidence of acute diverticulitis. 3. Cholelithiasis. 4. Cardiomegaly. 5. Additional findings as above. ACT 112: Negative or not required by law. Electronically signed by: Madan Ortiz M.D. 12/06/2019 3:40 PM
[2019-12-06] MEDS ORDERED: PIPERACILLIN/TAZOBACTAM 4.5 GM/120 ML BAG IV ONE (15:51)
--- NOTE | 2019-12-06 16:05 | Electrocardiogram Report ---
Test Reason : Blood Pressure : / mmHG Vent. Rate : 065 BPM Atrial Rate : 065 BPM P-R Int : 172 ms QRS Dur : 154 ms QT Int : 472 ms P-R-T Axes : 006 -71 066 degrees QTc Int : 490 ms Normal sinus rhythm Left axis deviation Right bundle branch block Left ventricular hypertrophy with repolarization abnormality Cannot rule out Septal infarct , age undetermined Abnormal ECG When compared with ECG of 13-NOV-2019 10:36, Right bundle branch block has replaced Left bundle branch block Minimal criteria for Septal infarct are now Present Confirmed by Ayden Diggs ([id number]) on 12/06/2019 4:04:44 PM Referred By: ED Confirmed By:Ayden Diggs
--- NOTE | 2019-12-06 16:48 | History & Physical Report ---
Date of Service December 06, 2019 Assessment & Plan (1) Catheter-associated urinary tract infection: Continue Zosyn 4.5 g IV every 8 hours pending urine and blood culture follow-up Currently on last time catheter changed 1 week ago - change after first antibiotic given Discuss with wound care whether Sears catheter can be removed to ensure ESBL E. coli adequately treated Continue LR 100 mL/hr (2) Acute dehydration: 1L NSS given in ER Continue LR as above (3) AMS (altered mental status): Multifactorial chronically as per HPI. No recent witnessed seizures since her last admission. Given prior bacteremia from ESBL E. coli I suspect this is a true infection which is also causing her altered mental state. Constipation also possibly contributing. (4) Malnourished: Dietitian consult (5) Seizure disorder: Continue lamotrigine 25 mg p.o. every afternoon, levetiracetam 750 mg p.o. twice daily (6) Pressure ulcer of coccygeal region, stage 3: Nurse wound care consult (7) Dementia: Previously on ropinirole - unclear why/when this was stopped No current medication for dementia. May need one-to-one during hospital stay. (8) DVT prophylaxis: Heparin 5000 units BID Admission and Anticipated Discharge Date Admission Date: 12/06/2019 History of Present Illness Chief Complaint: Altered mental state, not eating Primary Care Provider: Aurora Estrada MD Mikaela Easley is an 84 year old female who presents to the ER due to recurrence of ESBL E. coli infection. She was recently seen by her PCP on November 28 due to concern she is not eating or drinking well a urine culture was performed again growing ESBL E. coli. She was treated with cefuroxime without significant improvement with plans to follow-up with [facility] infectious disease. For the last 3 days she is now not eaten therefore her brought her to the emergency room on the advice of her PCP. Indwelling urinary catheter due to a nonhealing sacral ulcer. Her son is at bedside and reports she is currently at her baseline (known from previous hospitalizations). Fluctuates considerably but psychomotor agitation is not unusual for her. He reports she eats a regular diet with no history of aspirations but tends to pocket food. Requests pured diet. She has baseline Alzheimer's dementia and lives with her son. At baseline is disorientated x3, nonverbal and bedbound. Prior to her hip fracture she could stand, pivot to chair with assistance. Recent considerable hospitalizations after receiving ertapenem for a catheter associated UTI which was suspected to have caused her first ever tonic-clonic seizure when she was intubated in the emergency room on September 25, 2019 and life flighted to [facility]. She was started on Keppra and managed to be extubated without significant issues however on discharge when she arrived home she was noted to have a swollen left hip and was not moving her left leg. Subsequent x-ray showed a left hip fracture and she was hospitalized here from October 03-2019 for surgical repair of this. Hospitalized here from November 05- for catheter associated UTI ESBL E. coli and bacteremia. She was discharged with an ultrasound-guided IV line to continue Zosyn at home. Unfortunately she had another seizure after her Keppra dose was decreased and was hospitalized from November 12 to November 14, neurology started lamotrigine at this time. Allergies Allergy/AdvReac Type Severity Reaction Status Date / Time ertapenem AdvReac Severe seizures Unverified 12/06/19 14:17 enalapril AdvReac Intermediate Cough Verified 12/06/19 14:17 escitalopram AdvReac Intermediate Hallucinati Verified 12/06/19 14:17 ons Home Medications Home Medications Medication Instructions Recorded Confirmed Type cholecalciferol (vitamin D3) 2,000 units PO HS 04/04/18 12/06/19 History [Vitamin D3] thiamine HCl (vitamin B1) [Vitamin 250 mg PO QAM 10/21/18 12/06/19 History B-1] Myrbetriq 50 mg PO QAM 06/29/19 12/06/19 History atorvastatin [Lipitor] 10 mg PO QAM 06/29/19 12/06/19 History cyanocobalamin (vitamin B-12) 5,000 mcg PO QAM 07/20/19 12/06/19 History [Vitamin B-12] folic acid 0.8 mg PO QAM 07/20/19 12/06/19 History diclofenac sodium 1 % topical gel 2 gm TOP QID PRN #100 gm 08/07/19 12/06/19 Rx polyethylene glycol 3350 [Miralax] 17 g PO BID PRN 09/19/19 12/06/19 History Saccharomyces boulardii 250 mg PO QAM 10/04/19 12/06/19 History docusate sodium 100 mg PO QAM 10/04/19 12/06/19 History nystatin 1 applic TOPICAL TID PRN 10/04/19 12/06/19 History ferrous sulfate 325 mg PO BIDM 30 Days #60 tab 10/09/19 12/06/19 Rx levetiracetam 750 mg PO BID #60 tab 11/11/19 12/06/19 Rx acetaminophen [Tylenol Extra 500 mg PO BID 11/13/19 12/06/19 History Strength] aspirin 81 mg PO QAM 11/13/19 12/06/19 History lamotrigine [Lamictal] 25 mg PO QPM #30 tab 11/15/19 12/06/19 Rx cefuroxime axetil 250 mg tablet 250 mg PO Q12H 14 Days #28 tab 11/30/19 12/06/19 Rx Past Med/Surg History Medical History Anxiety (Chronic) Aortic stenosis (Chronic) Bacteremia Chest pain (Inactive) Diabetes (Resolved) Episode of unresponsiveness (Inactive) Goals of care, counseling/discussion Heart disease (Resolved) Hypertension (Chronic) Loss of consciousness Stroke (Resolved) UTI (urinary tract infection) Surgical History H/O aortic valve replacement History of colonoscopy History of cystoscopy with Cystolitholapaxy History of endoscopic gastrointestinal surgery S/P CABG (coronary artery bypass graft) S/P cataract surgery S/P hip replacement S/P tubal ligation Family History Father Myocardial infarction Mother Myocardial infarction Diabetes Stroke Rheumatoid arthritis Family/Other Cancer Other Hypertension Social History Smoking Status: Never smoker Second Hand Exposure: No; Do You Dip or Chew Tobacco: No; Tobacco Cessation Education Requested by Patient: No Hx Alcohol Use: No Hx Substance Use: No Preferred Language: Welsh Communication Ability: Impaired Communication Ability Comment: history of dementia, unable to communicate Fire Protection [employer]ator Required: No Beliefs That Will Affect Care: None marital status: / Current Living Situation: Family Current Living Situation Comment: Lives with current occupational status: retired Other Information That Helps Us Care for You: No Feels Safe at Home: Yes Safety Concerns: Feels Safe At This Time during the past year weight has: remained stable Seatbelt Use: always Review of Systems Review of Systems: Unobtainable due to cognitive status Physical Exam Constitutional: + acute distress (Constant moving in bed, groans) and + frail appearing; + not well nourished Eyes: + anicteric sclerae; normal pupil size ENMT: external ear and nose normal, oropharynx normal Neck: trachea midline, no thyromegaly Respiratory: normal respiratory effort, lungs clear to auscultation Cardiovascular: RRR, no murmur, no edema Gastrointestinal (Abdomen): Inspection/Auscultation: normal bowel sounds Percussion/Palpation: abdomen soft; abdomen nontender, no guarding and abdomen not rigid Musculoskeletal: Generalized muscle wasting, moving all 4 limbs Skin: Sacral ulcer present on back without surrounding cellulitis Neurologic: moves all extremities and awake Psychiatric: Orientation: alert; + not oriented x 3 Genitourinary: no CVA tenderness Lymphatic: no cervical or axillary lymphadenopathy Results & Data Results & Data ([facility]) Vital Signs (Past 12 Hours) Vital Signs Temp Pulse Resp BP Pulse Ox 12/06/19 16:00 73 15 175/87 H 99 12/06/19 15:31 66 14 166/98 H 98 12/06/19 15:06 66 18 146/93 H 99 12/06/19 14:51 64 17 150/77 H 98 12/06/19 13:01 36.4 C L 69 16 105/61 96 Diagnostic Findings SINGLE VIEW CHEST IMPRESSION: Cardiomegaly with no active disease in the chest. CT OF THE HEAD WITHOUT CONTRAST IMPRESSION: No acute intracranial findings. No change in appearance of the brain. ABDOMEN AND PELVIS CT WITHOUT CONTRAST IMPRESSION: 1. Healing mild inferior endplate compression fracture at L4 and a healing right anterior sixth rib fracture. These are new from the prior study. 2. There is mild to moderate colonic diverticulosis without CT evidence of acute diverticulitis. 3. Cholelithiasis. 4. Cardiomegaly. 5. Additional findings as above. ECG Rate (beats per minute): 65 Rhythm: normal sinus Findings: + LBBB Comparison ECG Date: from (13 November 2019) Change: no significant change Code Status & VTE Plan Code Status DNR/DNI VTE Prophylaxis Plan VTE Prophylaxis will be ordered: Yes PG Care Time/CCT Total # of Minutes Spent Total Time Spent with Patient: Total time spent is greater than 50% in coordination of care (as documented) at patient's floor/unit and/or counseling patient: Coding Level of Care Code 94063 Initial Inpt Care Lvl 3 Diagnoses Catheter-associated urinary tract infection T83.511A; N39.0 Acute dehydration E86.0 AMS (altered mental status) R41.82 Altered mental status type: unspecified Malnourished E46 Seizure disorder G40.909 Pressure ulcer of coccygeal region, stage 3 L89.153 Dementia F03.90 Dementia behavioral disturbance: without behavioral disturbance Dementia type: unspecified type DVT prophylaxis Z29.9 (1) AMS (altered mental status) Altered mental status type: unspecified Qualified Code(s): R41.82 - Altered mental status, unspecified (2) Dementia Dementia behavioral disturbance: without behavioral disturbance Dementia type: unspecified type Qualified Code(s): F03.90 - Unspecified dementia without behavioral disturbance
[2019-12-06] MEDS ORDERED: NYSTATIN POWDER 15GM BTL EXT PRN (18:20)
[2019-12-06] MEDS ORDERED: DICLOFENAC SOD 1% GEL 100 GM TUBE EXT PRN (18:20)
[2019-12-06] MEDS ORDERED: PIPERACILL/TAZOBAC CONSULT ACTIVE PRN (19:00)
[2019-12-06] MEDS: PIPERACILLIN/TAZOBACTAM 4.5 GM in DEXTROSE 5% 100 ML IV SCH (20:28)
[2019-12-06] MEDS: CHOLECALCIFEROL 1,000 UNITS 25 MCG TAB PO SCH (20:28)
[2019-12-06] MEDS: levETIRAcetam 250 MG TAB PO SCH (20:29)
[2019-12-06] MEDS: ACETAMINOPHEN 500 MG TAB PO SCH (20:29)
[2019-12-06] MEDS: FERROUS SULFATE 325 MG TAB PO SCH (20:29)
[2019-12-06] MEDS: lamoTRIgine 25 MG TAB PO SCH (20:30)
[2019-12-06] MEDS: POLYETHYLENE (MIRALAX) 17 GM PACK PO SCH (20:30)
[2019-12-07] MEDS: LACTATED RINGER'S 1,000 ML IV SCH ×2 (04:13→15:46)
[2019-12-07] MEDS: PIPERACILLIN/TAZOBACTAM 4.5 GM in DEXTROSE 5% 100 ML IV SCH ×3 (04:31→22:07)
[2019-12-07] MEDS ORDERED: LORazepam 0.5 MG/1 ML VIAL IV STA (06:18)
[2019-12-07 06:30] LABS: Basophils # (auto) 0.06 K/uL (0-0.2); Eosinophils # (auto) 0.24 K/uL (0-0.5); Hematocrit (blood only) 35.3 % (37-47); Hemoglobin 11.5 g/dL (12.0-16.0); Immature Granulocytes # (auto) 0.01 K/uL (0.00-0.02); Immature Granulocytes % (auto) 0.2 %; Lymphocytes # (auto) 1.41 K/uL (1.2-3.4); Lymphocytes % (auto) 23.2 %; Mean Corpuscular Hemoglobin 29.5 pg (25-34); Mean Corpuscular Hgb Conc 32.6 g/dL (32-36); Mean Corpuscular Volume 90.5 fL (80-100); Mean Platelet Volume 10.5 fL (7.4-10.4); Monocytes # (auto) 0.68 K/uL (0.11-0.59); Monocytes % (auto) 11.2 %; Neutrophils # (auto) 3.67 K/uL (1.4-6.5); Neutrophils % (auto) 60.4 %; Platelet Count 159 K/uL (130-400); RDW Coefficient of Variation 14.4 % (11.5-14.5); RDW Standard Deviation 47.6 fL (36.4-46.3); White Blood Count 6.07 K/uL (4.8-10.8)
[2019-12-07 07:10] LABS: Albumin Level 3.2 gm/dl (3.4-5.0); BUN Creatinine Ratio 30.1 (10-20); Est GFR (African American) 66.7; Est GFR (Non-African American) 57.6; Potassium 4.1 mmol/L (3.5-5.1)
[2019-12-07 07:13] LABS: Albumin Globulin Ratio 0.8 (0.9-2); Bilirubin,Total 0.5 mg/dl (0.2-1); Globulin 4.1 gm/dl (2.5-4.0); Total Protein 7.3 gm/dl (6.4-8.2)
[2019-12-07] MEDS: POLYETHYLENE (MIRALAX) 17 GM PACK PO SCH ×2 (12:32→22:09)
[2019-12-07] MEDS: DOCUSATE SODIUM 100 MG CAP PO SCH (12:34)
[2019-12-07] MEDS: ACETAMINOPHEN 500 MG TAB PO SCH ×2 (12:35→22:13)
[2019-12-07] MEDS: HEPARIN SOD 5,000 UNIT/0.5 ML VIAL SQ SCH ×2 (12:39→22:07)
--- NOTE | 2019-12-07 12:55 | Hospitalist Progress Note ---
Date of Service December 07, 2019 Assessment & Plan (1) Catheter-associated urinary tract infection: Unclear to me if this truly is actual infection vs. colonization. Her symptoms are very general like less responsiveness and loss of appetite. - Continue Zosyn 4.5 g IV every 8 hours pending urine and blood culture follow- up - Continue IV fluids (2) AMS (altered mental status): Multifactorial chronically as per HPI. No recent witnessed seizures since her last admission. Constipation also possibly contributing. - Per reports from family, she is at baseline. (3) Malnourished: Due to dementia. - Dietitian consulted (4) Seizure disorder: Previously thought to be from ertapenem; however, also had seizures without it. - Continue lamotrigine 25 mg p.o. every afternoon, levetiracetam 750 mg p.o. twice daily (5) Pressure ulcer of coccygeal region, stage 3: Nurse wound care consult (6) Dementia: Previously on ropinirole - unclear why/when this was stopped. No current medication for dementia. May need one-to-one during hospital stay. - Monitor (7) DVT prophylaxis: Heparin 5000 units BID Admission and Anticipated Discharge Date Admission Date: December 06, 2019 Subjective Unresponsive today for my exam this morning. Review of Systems Review of Systems: Unobtainable due to cognitive status Physical Exam Constitutional: WD/WN, vitals as above Eyes: EOM intact bilaterally; no conjunctival abnormality ENMT: external ear and nose normal, oropharynx normal Neck: trachea midline, no thyromegaly normal visual inspection Respiratory: normal respiratory effort, lungs clear to auscultation no respiratory distress Cardiovascular: RRR, no murmur, no edema Gastrointestinal (Abdomen): Inspection/Auscultation: abdomen normal to inspection; abdomen not distended Musculoskeletal: no cyanosis or clubbing, extremities motor strength 5/5 Skin: no rashes, warm and dry Neurologic: moves all extremities and awake Results & Data Results & Data ([facility]) Vital Signs (Past 12 Hours) Vital Signs Temp Pulse Pulse Pulse Resp BP Pulse Ox 12/07/19 08:26 63 18 158/66 H 99 12/07/19 07:41 59 L 12/07/19 04:21 36.8 C 64 18 109/65 96 PG Care Time/CCT Total # of Minutes Spent Total Time Spent with Patient: Total time spent is greater than 50% in coordination of care (as documented) at patient's floor/unit and/or counseling patient: Coding Level of Care Code 48629 Subseq Hosp Care Lvl 2 Diagnoses Catheter-associated urinary tract infection T83.511A; N39.0 AMS (altered mental status) R41.82 Altered mental status type: unspecified Malnourished E46 Seizure disorder G40.909 Pressure ulcer of coccygeal region, stage 3 L89.153 Dementia F03.90 Dementia behavioral disturbance: without behavioral disturbance Dementia type: unspecified type DVT prophylaxis Z29.9 (1) AMS (altered mental status) Altered mental status type: unspecified Qualified Code(s): R41.82 - Altered mental status, unspecified (2) Dementia Dementia behavioral disturbance: without behavioral disturbance Dementia type: unspecified type Qualified Code(s): F03.90 - Unspecified dementia without behavioral disturbance
[2019-12-07] MEDS: FOLIC ACID 400 MCG TAB PO SCH (13:00)
[2019-12-07] MEDS: ATORVASTATIN 10 MG TAB PO SCH (13:01)
[2019-12-07] MEDS: ASPIRIN 81 MG ECTAB PO SCH (13:01)
[2019-12-07] MEDS: levETIRAcetam 250 MG TAB PO SCH ×2 (13:02→22:08)
[2019-12-07] MEDS: SACCHAROMYCES BOULARDII 250 MG CAP PO SCH (13:02)
[2019-12-07] MEDS: MIRABEGRON ER 25 MG TAB PO SCH (13:02)
[2019-12-07] MEDS: THIAMINE HCL 50 MG TABLET PO SCH (13:02)
[2019-12-07] MEDS: FERROUS SULFATE 325 MG TAB PO SCH ×2 (13:04→17:44)
--- NOTE | 2019-12-07 15:40 | Palliative Care Consultation ---
Date of Consultation December 07, 2019 Assessment & Plan (1) Goals of care, counseling/discussion: Pt is an 84 year old female who presented to the [facility] for nausea, poor appetite and decreased UOP. Pt known to our service from her admission from 11/12-11/14. Patient has a past medical history significant for seizure disorder, prior CVA, Alzheimer's disease with dementia, hip fracture this past September, stage III decubitus ulcer, chronic indwelling Sears to assist with decubitus ulcer healing, hypertension, HLD, CAD-status post CABG, CHF, aortic stenosis-status post AVR, diabetes and recurrent UTIs. -Patient lives with her 2 daughters, Rosa M and Esperanza, she does receive Home Health services and has caregivers in the home. Palliative Care was consulted to discuss goals of care. -I met with the patient in room 279. She is awake, eyes are open, she vocalizes but is nonverbal, trying to climb over the side rail-safety pads on the floor.. -Spoke with patient's son, Dixon, who is her [phone]. Reviewed goals of care-family wanting to continue aggressive treatment, son stated that she has an appointment on 12/12 with infectious disease regarding her recurrent UTIs-he is also done significant research regarding cranberry concentrate, E111, and copper and preventing recurrent UTIs. Son also stated that their goal would be to continue to bring patient to the hospital when needed. Son reports she has been doing well at home up until this last UTI when she had decreased p.o. intake. -The patient does have a stage III-now stage II decubitus ulcer -followed by wound clinic. -Patient is thin, her labs show an albumin of 3.2, she does not have an elevated white count, hemoglobin 11.5, TSH within normal limits-sacral wound is healing which indicates some good nutritional intake. -No current symptom management needs. -Patient had a POLST form completed on 11/14 during her last admission, indicating: DNR/DNI, Limited Interventions, trial abx, and trial artificial nutrition. -The patients son, Dixon, was clear they were not ready to stop coming back to the hospital when needed and plan is to return home. -PPS: 30% -Updated attending physician regarding conversation with son -Please contact Palliative Care should we be of further assistance. (2) Seizure disorder: Continues on Keppra-Lamictal recently added, no recent seizure activity noted (3) Dementia: FAST 7B, maybe 7C - would qualify for hospice, but families goals are not in line with hospice philosophy (4) Recurrent ESBL E. coli UTIs -patient has appointment with infectious disease on 12/12, has been followed by urology (2) Dementia: Dementia behavioral disturbance: without behavioral disturbance Dementia type: unspecified type Qualified Code(s): F03.90 - Unspecified dementia without behavioral disturbance (3) Urinary tract infection due to extended-spectrum beta lactamase (ESBL) producing Escherichia coli: History of Present Illness Reason for Consultation: Address goals of care Requesting Physician: Dr. Jerome Viveros Attending Physician: Jerome Viveros MD History of Present Illness Pt is an 84 year old female who presented to the [facility] for nausea, poor appetite and decreased UOP. Pt known to our service from her admission from 11/12-11/14. Patient has a past medical history significant for seizure disorder, prior CVA, Alzheimer's disease with dementia, hip fracture this past September, stage III decubitus ulcer, chronic indwelling Sears to assist with decubitus ulcer healing, hypertension, HLD, CAD-status post CABG, CHF, aortic stenosis-status post AVR, diabetes and recurrent UTIs. -Patient lives with her 2 daughters, Rosa M and Esperanza, she does receive Home Health services and has caregivers in the home. Palliative Care was consulted to discuss goals of care. -I met with the patient in room 279. She is awake, eyes are open, she vocalizes but is nonverbal, trying to climb over the side rail-safety pads on the floor.. -Spoke with patient's son, Dixon, who is her [phone]. Reviewed goals of care-family wanting to continue aggressive treatment, son stated that she has an appointment on 12/12 with infectious disease regarding her recurrent UTIs-he is also done significant research regarding cranberry concentrate, E111, and copper and preventing recurrent UTIs. Son also stated that their goal would be to continue to bring patient to the hospital when needed. Son reports she has been doing well at home up until this last UTI when she had decreased p.o. intake. -The patient does have a stage III-now stage II decubitus ulcer -followed by wound clinic. -Patient is thin, her labs show an albumin of 3.2, she does not have an elevated white count, hemoglobin 11.5, TSH within normal limits-sacral wound is healing which indicates some good nutritional intake. -No current symptom management needs. -Patient had a POLST form completed on 11/14 during her last admission, indicating: DNR/DNI, Limited Interventions, trial abx, and trial artificial nutrition. -The patients son, Dixon, was clear they were not ready to stop coming back to the hospital when needed and plan is to return home. -PPS: 30% -Updated attending physician regarding conversation with son -Please contact Palliative Care should we be of further assistance. (2) Seizure disorder: Continues on Keppra-Lamictal recently added, no recent seizure activity noted (3) Dementia: FAST 7B, maybe 7C - would qualify for hospice, but families goals are not in line with hospice philosophy (4) Recurrent ESBL E. coli UTIs -patient has appointment with infectious disease on 12/12, has been followed by urology Allergies Allergy/AdvReac Type Severity Reaction Status Date / Time ertapenem AdvReac Severe seizures Unverified 12/06/19 14:17 enalapril AdvReac Intermediate Cough Verified 12/06/19 14:17 escitalopram AdvReac Intermediate Hallucinati Verified 12/06/19 14:17 ons Home Medications Home Medications Medication Instructions Recorded Confirmed Type cholecalciferol (vitamin D3) 2,000 units PO HS 04/04/18 12/06/19 History [Vitamin D3] thiamine HCl (vitamin B1) [Vitamin 250 mg PO QAM 10/21/18 12/06/19 History B-1] Myrbetriq 50 mg PO QAM 06/29/19 12/06/19 History atorvastatin [Lipitor] 10 mg PO QAM 06/29/19 12/06/19 History cyanocobalamin (vitamin B-12) 5,000 mcg PO QAM 07/20/19 12/06/19 History [Vitamin B-12] folic acid 0.8 mg PO QAM 07/20/19 12/06/19 History diclofenac sodium 1 % topical gel 2 gm TOP QID PRN #100 gm 08/07/19 12/06/19 Rx polyethylene glycol 3350 [Miralax] 17 g PO BID PRN 09/19/19 12/06/19 History Saccharomyces boulardii 250 mg PO QAM 10/04/19 12/06/19 History docusate sodium 100 mg PO QAM 10/04/19 12/06/19 History nystatin 1 applic TOPICAL TID PRN 10/04/19 12/06/19 History ferrous sulfate 325 mg PO BIDM 30 Days #60 tab 10/09/19 12/06/19 Rx levetiracetam 750 mg PO BID #60 tab 11/11/19 12/06/19 Rx acetaminophen [Tylenol Extra 500 mg PO BID 11/13/19 12/06/19 History Strength] aspirin 81 mg PO QAM 11/13/19 12/06/19 History lamotrigine [Lamictal] 25 mg PO QPM #30 tab 11/15/19 12/06/19 Rx cefuroxime axetil 250 mg tablet 250 mg PO Q12H 14 Days #28 tab 11/30/19 12/06/19 Rx Patient History Medical History Anxiety (Chronic) Aortic stenosis (Chronic) Bacteremia Chest pain (Inactive) Diabetes (Resolved) Episode of unresponsiveness (Inactive) Goals of care, counseling/discussion Heart disease (Resolved) Hypertension (Chronic) Loss of consciousness Stroke (Resolved) UTI (urinary tract infection) Surgical History H/O aortic valve replacement History of colonoscopy History of cystoscopy with Cystolitholapaxy History of endoscopic gastrointestinal surgery S/P CABG (coronary artery bypass graft) S/P cataract surgery S/P hip replacement S/P tubal ligation Family History Father Myocardial infarction Mother Myocardial infarction Diabetes Stroke Rheumatoid arthritis Family/Other Cancer Other Hypertension Social History Smoking Status: Never smoker Second Hand Exposure: No; Do You Dip or Chew Tobacco: No; Tobacco Cessation Education Requested by Patient: No Hx Alcohol Use: No Hx Substance Use: No Preferred Language: Persian Communication Ability: Impaired Communication Ability Comment: history of dementia, unable to communicate Senior Agricultural Assistant Required: No Beliefs That Will Affect Care: None marital status: / Current Living Situation: Family Current Living Situation Comment: Lives with current occupational status: retired Other Information That Helps Us Care for You: No Feels Safe at Home: Yes Safety Concerns: Feels Safe At This Time during the past year weight has: remained stable Seatbelt Use: always Review of Systems Review of Systems: Unobtainable due to cognitive status Physical Exam Physical Exam: PE: Patient awake and alert, nonverbal on exam, vocalizing, unable to make her needs known HEENT: EOMI Respirations: Clear breath sounds CV: Regular rate, no edema Abdomen: Soft, no grimace on palpation Extremities: Thin, positive muscle wasting, good strength Neuro: Severe dementia Results & Data Vital Signs (Past 12 Hours) Vital Signs Temp Pulse Pulse Pulse Resp BP Pulse Ox 12/07/19 08:26 63 18 158/66 H 99 12/07/19 07:41 59 L 12/07/19 04:21 98.2 F 64 18 109/65 96 PG Care Time/CCT Total # of Minutes Spent Total Time Spent with Patient: Total time spent 55 minutes with greater than 50% of the time spent at bedside assessing patient's status speaking with family by phone discussing goals of care. Collaborated with attending physician Coding Level of Care Code 08156 Inpt Consult Level 2 Diagnoses Goals of care, counseling/discussion Z71.89 Dementia F03.90 Dementia behavioral disturbance: without behavioral disturbance Dementia type: unspecified type Urinary tract infection due to extended-spectrum beta lactamase (ESBL) producing Escherichia coli N39.0; B96.29; Z16.12 Time Spent (min) 55
[2019-12-07] MEDS: lamoTRIgine 25 MG TAB PO SCH (22:07)
[2019-12-07] MEDS: CHOLECALCIFEROL 1,000 UNITS 25 MCG TAB PO SCH (22:08)
[2019-12-08] MEDS: PIPERACILLIN/TAZOBACTAM 4.5 GM in DEXTROSE 5% 100 ML IV SCH ×3 (04:14→20:22)
[2019-12-08 07:25] LABS: Basophils # (auto) 0.05 K/uL (0-0.2); Basophils % (auto) 0.9 %; Eosinophils # (auto) 0.21 K/uL (0-0.5); Eosinophils % (auto) 3.7 %; Hematocrit (blood only) 33.2 % (37-47); Immature Granulocytes # (auto) 0.01 K/uL (0.00-0.02); Immature Granulocytes % (auto) 0.2 %; Lymphocytes # (auto) 1.75 K/uL (1.2-3.4); Lymphocytes % (auto) 30.8 %; Mean Corpuscular Hemoglobin 29.7 pg (25-34); Mean Corpuscular Hgb Conc 33.1 g/dL (32-36); Mean Corpuscular Volume 89.7 fL (80-100); Mean Platelet Volume 11.1 fL (7.4-10.4); Monocytes # (auto) 0.55 K/uL (0.11-0.59); Monocytes % (auto) 9.7 %; Neutrophils # (auto) 3.12 K/uL (1.4-6.5); Neutrophils % (auto) 54.7 %; Platelet Count 142 K/uL (130-400); RDW Coefficient of Variation 14.3 % (11.5-14.5); RDW Standard Deviation 47.3 fL (36.4-46.3); White Blood Count 5.69 K/uL (4.8-10.8)
[2019-12-08 07:53] LABS: Calcium 9.3 mg/dl (8.5-10.1); Creatinine Clr Calc Pharmacy 36.4 ml/min; Est GFR (African American) 59.6; Est GFR (Non-African American) 51.4; Magnesium 2.2 mg/dl (1.8-2.4); Potassium 3.9 mmol/L (3.5-5.1)
[2019-12-08 07:55] LABS: Albumin Globulin Ratio 0.9 (0.9-2); Bilirubin,Total 0.3 mg/dl (0.2-1); Globulin 3.5 gm/dl (2.5-4.0); Total Protein 6.5 gm/dl (6.4-8.2)
[2019-12-08] MEDS: FERROUS SULFATE 325 MG TAB PO SCH ×2 (09:02→15:58)
[2019-12-08] MEDS: ASPIRIN 81 MG ECTAB PO SCH (09:02)
[2019-12-08] MEDS: DOCUSATE SODIUM 100 MG CAP PO SCH (09:02)
[2019-12-08] MEDS: SACCHAROMYCES BOULARDII 250 MG CAP PO SCH (09:03)
[2019-12-08] MEDS: HEPARIN SOD 5,000 UNIT/0.5 ML VIAL SQ SCH ×2 (09:03→20:23)
[2019-12-08] MEDS: FOLIC ACID 400 MCG TAB PO SCH (09:03)
[2019-12-08] MEDS: levETIRAcetam 250 MG TAB PO SCH ×2 (09:04→20:23)
[2019-12-08] MEDS: POLYETHYLENE (MIRALAX) 17 GM PACK PO SCH ×2 (09:05→20:24)
[2019-12-08] MEDS: MIRABEGRON ER 25 MG TAB PO SCH (09:05)
[2019-12-08] MEDS: ATORVASTATIN 10 MG TAB PO SCH (09:05)
[2019-12-08] MEDS: THIAMINE HCL 50 MG TABLET PO SCH (09:06)
[2019-12-08] MEDS: ACETAMINOPHEN 500 MG TAB PO SCH ×2 (09:09→20:22)
--- NOTE | 2019-12-08 16:08 | Hospitalist Progress Note ---
Date of Service December 08, 2019 Assessment & Plan (1) Catheter-associated urinary tract infection: Unclear to me if this truly is actual infection vs. colonization. Her symptoms are very general like less responsiveness and loss of appetite. - Continue Zosyn 4.5 g IV every 8 hours pending urine and blood culture follow- up - Continue IV fluids -> Urine culture from 12/05 growing ESBL E. coli, sensitive to Zosyn. Will require 1 week course. (2) AMS (altered mental status): Multifactorial chronically as per HPI. No recent witnessed seizures since her last admission. Constipation also possibly contributing. - Per reports from family, she is at baseline. (3) Malnourished: Due to dementia. - Dietitian consulted (4) Seizure disorder: Previously thought to be from ertapenem; however, also had seizures without it. - Continue lamotrigine 25 mg p.o. every afternoon, levetiracetam 750 mg p.o. twice daily (5) Pressure ulcer of coccygeal region, stage 3: Nurse wound care consult (6) Dementia: Previously on ropinirole - unclear why/when this was stopped. No current medication for dementia. May need one-to-one during hospital stay. - Monitor (7) DVT prophylaxis: Heparin 5000 units BID Admission and Anticipated Discharge Date Admission Date: December 06, 2019 Subjective No verbal response. No acknowledgement of questions. Review of Systems Review of Systems: Unobtainable due to cognitive status Physical Exam Constitutional: WD/WN, vitals as above Eyes: EOM intact bilaterally; no conjunctival abnormality ENMT: external ear and nose normal, oropharynx normal Neck: trachea midline, no thyromegaly normal visual inspection Respiratory: normal respiratory effort, lungs clear to auscultation no respiratory distress Cardiovascular: RRR, no murmur, no edema Gastrointestinal (Abdomen): Inspection/Auscultation: abdomen normal to inspection; abdomen not distended Musculoskeletal: no cyanosis or clubbing, extremities motor strength 5/5 Skin: no rashes, warm and dry Neurologic: moves all extremities and awake Results & Data Results & Data ([facility]) Vital Signs (Past 12 Hours) Vital Signs Temp Pulse Resp BP BP Pulse Ox 12/08/19 15:20 36.7 C 99 H 18 135/71 96 12/08/19 07:19 36.4 C L 61 16 153/90 H 99 PG Care Time/CCT Total # of Minutes Spent Total Time Spent with Patient: Total time spent is greater than 50% in coordination of care (as documented) at patient's floor/unit and/or counseling patient: Coding Level of Care Code 18070 Subseq Hosp Care Lvl 2 Diagnoses Catheter-associated urinary tract infection T83.511A; N39.0 AMS (altered mental status) R41.82 Altered mental status type: unspecified Malnourished E46 Seizure disorder G40.909 Pressure ulcer of coccygeal region, stage 3 L89.153 Dementia F03.90 Dementia behavioral disturbance: without behavioral disturbance Dementia type: unspecified type DVT prophylaxis Z29.9 (1) AMS (altered mental status) Altered mental status type: unspecified Qualified Code(s): R41.82 - Altered mental status, unspecified (2) Dementia Dementia behavioral disturbance: without behavioral disturbance Dementia type: unspecified type Qualified Code(s): F03.90 - Unspecified dementia without behavioral disturbance
[2019-12-08] MEDS: CHOLECALCIFEROL 1,000 UNITS 25 MCG TAB PO SCH (20:23)
[2019-12-08] MEDS: lamoTRIgine 25 MG TAB PO SCH (20:23)
[2019-12-09] MEDS: PIPERACILLIN/TAZOBACTAM 4.5 GM in DEXTROSE 5% 100 ML IV SCH (04:11)
[2019-12-09] MEDS: SACCHAROMYCES BOULARDII 250 MG CAP PO SCH (08:11)
[2019-12-09] MEDS: levETIRAcetam 250 MG TAB PO SCH (08:11)
[2019-12-09] MEDS: THIAMINE HCL 50 MG TABLET PO SCH (08:12)
[2019-12-09] MEDS: FERROUS SULFATE 325 MG TAB PO SCH (08:13)
[2019-12-09] MEDS: ATORVASTATIN 10 MG TAB PO SCH (08:13)
[2019-12-09] MEDS: FOLIC ACID 400 MCG TAB PO SCH (08:14)
[2019-12-09] MEDS: ASPIRIN 81 MG ECTAB PO SCH (08:14)
[2019-12-09] MEDS: MIRABEGRON ER 25 MG TAB PO SCH (08:15)
[2019-12-09] MEDS: HEPARIN SOD 5,000 UNIT/0.5 ML VIAL SQ SCH (08:16)
[2019-12-09] MEDS: ACETAMINOPHEN 500 MG TAB PO SCH (08:22)
[2019-12-09] MEDS: DOCUSATE SODIUM 100 MG CAP PO SCH (08:22)
[2019-12-09] MEDS: POLYETHYLENE (MIRALAX) 17 GM PACK PO SCH (08:22)
--- NOTE | 2019-12-09 14:48 | Discharge Summary ---
Date of Service December 09, 2019 Admission HPI Per Admitting Provider Mikaela Easley is an 84 year old female who presents to the ER due to recurrence of ESBL E. coli infection. She was recently seen by her PCP on November 28 due to concern she is not eating or drinking well a urine culture was performed again growing ESBL E. coli. She was treated with cefuroxime without significant improvement with plans to follow-up with [facility] infectious disease. For the last 3 days she is now not eaten therefore her brought her to the emergency room on the advice of her PCP. Indwelling urinary catheter due to a nonhealing sacral ulcer. Her son is at bedside and reports she is currently at her baseline (known from previous hospitalizations). Fluctuates considerably but psychomotor agitation is not unusual for her. He reports she eats a regular diet with no history of aspirations but tends to pocket food. Requests pured diet. She has baseline Alzheimer's dementia and lives with her son. At baseline is disorientated x3, nonverbal and bedbound. Prior to her hip fracture she could stand, pivot to chair with assistance. Recent considerable hospitalizations after receiving ertapenem for a catheter associated UTI which was suspected to have caused her first ever tonic-clonic seizure when she was intubated in the emergency room on September 25, 2019 and life flighted to [facility]. She was started on Keppra and managed to be extubated without significant issues however on discharge when she arrived home she was noted to have a swollen left hip and was not moving her left leg. Subsequent x-ray showed a left hip fracture and she was hospitalized here from October 03-2019 for surgical repair of this. Hospitalized here from November 05 for catheter associated UTI ESBL E. coli and bacteremia. She was discharged with an ultrasound-guided IV line to continue Zosyn at home. Unfortunately she had another seizure after her Keppra dose was decreased and was hospitalized from November 12 to November 14, neurology started lamotrigine at this time. Principal Diagnosis Catheter-associated UTI Discharge Exam Constitutional WD/WN, vitals as above Eyes EOM intact bilaterally; no conjunctival abnormality ENMT external ear and nose normal, oropharynx normal Neck trachea midline, no thyromegaly normal visual inspection Respiratory normal respiratory effort, lungs clear to auscultation no respiratory distress Cardiovascular RRR, no murmur, no edema Gastrointestinal (Abdomen) Inspection/Auscultation: abdomen normal to inspection; abdomen not distended Musculoskeletal no cyanosis or clubbing, extremities motor strength 5/5 Skin no rashes, warm and dry Neurologic moves all extremities and awake Discharge Data Allergies Allergy/AdvReac Type Severity Reaction Status Date / Time ertapenem AdvReac Severe seizures Unverified 12/06/19 14:17 enalapril AdvReac Intermediate Cough Verified 12/06/19 14:17 escitalopram AdvReac Intermediate Hallucinati Verified 12/06/19 14:17 ons Consultations 12/06/19 15:51 ED Decision to Admit Stat 12/07/19 01:41 Consult Case Management - Discharge Planning Routine 12/07/19 01:45 Consult Infectious Diseases Routine 12/07/19 12:56 Consult Palliative Care Routine Ordered Studies 12/06/19 14:14 CT abd pelvis wo con Stat CT head/brain wo con Stat Hospital Course (1) Catheter-associated urinary tract infection: Unclear to me if this truly is actual infection vs. colonization. Her symptoms are very general like less responsiveness and loss of appetite. - Continue Zosyn 4.5 g IV every 8 hours pending urine and blood culture follow- up - Continue IV fluids -> Urine culture from 12/05 growing ESBL E. coli, sensitive to Zosyn. Will require 1 week course. (2) AMS (altered mental status): Multifactorial chronically as per HPI. No recent witnessed seizures since her last admission. Constipation also possibly contributing. - Per reports from family, she is at baseline. (3) Malnourished: Due to dementia. - Dietitian consulted (4) Seizure disorder: Previously thought to be from ertapenem; however, also had seizures without it. - Continue lamotrigine 25 mg p.o. every afternoon, levetiracetam 750 mg p.o. twice daily (5) Pressure ulcer of coccygeal region, stage 3: Nurse wound care consult (6) Dementia: Previously on ropinirole - unclear why/when this was stopped. No current medication for dementia. May need one-to-one during hospital stay. - Monitor (7) DVT prophylaxis: Heparin 5000 units BID Total Time Total Time Spent Total Time Spent (In Minutes): 35 Discharge Plan Discharge Items Patient Disposition: Home - Home Health Services Reason For Visit: CATHETER ASSOCIATED UTI Discharge Diagnosis: Catheter-associated UTI Activity: Resume your previous activity Non-emergency contact: Primary Care Provider Call non-emergency contact if: your symptoms worsen Follow-up/Referrals: Aurora Estrada MD [Primary Care Provider] - Diet: Regular Diet Texture: Pureed (blended smooth) Addtl Attending Provider Instructions: You were here with a UTI that was caused by having a long-term catheter. Unfortunately, this is unavoidable for you. Please continue the antibiotics for another week to help get rid fo this infection. Pending Studies at Discharge: No Stand-Alone Forms: My [facility] Pidefarma, Smoking Cessation Medications and DC Order Prescriptions: Continued diclofenac sodium [Voltaren] 1 % gel 2 gm TOP QID PRN (Reason: JOINT PAIN) Qty: 100 RF: 0 cholecalciferol (vitamin D3) [Vitamin D3] 2,000 unit Capsule 2,000 units PO HS RF: 0 thiamine HCl (vitamin B1) [Vitamin B-1] 250 mg Tablet 250 mg PO QAM RF: 0 atorvastatin [Lipitor] 10 mg tablet 10 mg PO QAM RF: 0 Myrbetriq 50 mg tablet extended release 24 hr 50 mg PO QAM RF: 0 polyethylene glycol 3350 [Miralax] 17 gram powder in packet 17 g PO BID PRN (Reason: Constipation) RF: 0 folic acid 800 mcg Tablet 0.8 mg PO QAM RF: 0 cyanocobalamin (vitamin B-12) [Vitamin B-12] 5,000 mcg Tablet, Sublingual 5,000 mcg PO QAM RF: 0 docusate sodium 100 mg Tablet 100 mg PO QAM RF: 0 Saccharomyces boulardii 250 mg Capsule 250 mg PO QAM RF: 0 nystatin 100,000 unit/gram Powder 1 applic TOPICAL TID PRN (Reason: .) RF: 0 ferrous sulfate 325 mg (65 mg iron) Tablet,Delayed Release (Dr/Ec) 325 mg PO BIDM 30 Days Qty: 60 RF: 3 levetiracetam 750 mg tablet 750 mg PO BID Qty: 60 RF: 0 acetaminophen [Tylenol Extra Strength] 500 mg Tablet 500 mg PO BID RF: 0 aspirin 81 mg Tablet,Delayed Release (Dr/Ec) 81 mg PO QAM RF: 0 lamotrigine [Lamictal] 25 mg Tablet 25 mg PO QPM Qty: 30 RF: 0 Discontinued cefuroxime axetil 250 mg tablet 250 mg PO Q12H 14 Days Qty: 28 RF: 0 Discharge Orders: Discharge Order (Routine); Ordered 12/09/19 Ordered By: Jerome Viveros Admission Data Admit Date/Time: 12/06/19 17:07 Attending Provider: Jerome Viveros Admit Provider: Ryland Irwin Primary Care Provider: Aurora Estrada V. Other Providers: Ryland Irwin ; Graham Bedolla ; Wayne Collins ; Jasiel Krause I. ; Emmanuel Johnston II ; Judith Keller ; Adrian Walker ; Sade Herrera Other Interventions: Discharge Summary Assessment (RN) Last Done: 12/09/19 12:26 Coding Level of Care Code D/C Day Management >30 mins Diagnoses Catheter-associated urinary tract infection T83.511A; N39.0 AMS (altered mental status) R41.82 Altered mental status type: unspecified Malnourished E46 Seizure disorder G40.909 Pressure ulcer of coccygeal region, stage 3 L89.153 Dementia F03.90 Dementia behavioral disturbance: without behavioral disturbance Dementia type: unspecified type DVT prophylaxis Z29.9
== END 2019-12-09 15:50 | disposition home health service (06) | DRG 698 ==
LOC: ED 12:56 → SUATTDRO 17:07 → 2N 17:07

== ENCOUNTER 2020-01-27 09:00 | Inpatient (IN) ==
[2020-01-27] MEDS ORDERED: SODIUM CHLORIDE 0.9% 1000ML 1,000 ML IV SCH (10:00)
--- NOTE | 2020-01-27 10:07 | Emergency Department Note ---
History of Present Illness General Chief complaint: Altered Mental Status Stated complaint: ams Time Seen by Provider: 01/27/20 09:48 Source: family (Son who is at the bedside) Mode of arrival: EMS Limitations: altered mental status History of Present Illness This patient is brought in by the son after she has been having altered mental status. She woke up normal although she baseline is generally weak and minimally verbal, they ate breakfast around 8:00 and she started falling asleep she did seem like she was drooling. They are questioning a facial droop but no other weakness. She is on no blood thinners. No fall or trauma. She had a recent COVID test on for anticipation of upcoming procedure but no COVID symptoms no fever chills she has a chronic Sears catheter and gets chronic UTIs and her son says she acts like this when she does have UTIs. No nausea vomiting or diarrhea. No fall. Home Medications Home Medications Medication Instructions Recorded Confirmed Type cholecalciferol (vitamin D3) 2,000 units PO HS 04/04/18 01/27/20 History [Vitamin D3] thiamine HCl (vitamin B1) [Vitamin 250 mg PO QAM 10/21/18 01/27/20 History B-1] atorvastatin [Lipitor] 10 mg PO QAM 06/29/19 01/27/20 History cyanocobalamin (vitamin B-12) 5,000 mcg PO QAM 07/20/19 01/27/20 History [Vitamin B-12] folic acid 0.8 mg PO QAM 07/20/19 01/27/20 History diclofenac sodium 1 % topical gel 2 gm TOP QID PRN #100 gm 08/07/19 01/27/20 Rx polyethylene glycol 3350 [Miralax] 17 g PO BID PRN 09/19/19 01/27/20 History Saccharomyces boulardii 250 mg PO QAM 10/04/19 01/27/20 History docusate sodium 100 mg PO QAM 10/04/19 01/27/20 History nystatin 1 applic TOPICAL TID PRN 10/04/19 01/27/20 History ferrous sulfate 325 mg PO BIDM 30 Days #60 tab 10/09/19 01/27/20 Rx acetaminophen [Tylenol Extra 500 mg PO BID 11/13/19 01/27/20 History Strength] aspirin 81 mg PO QAM 11/13/19 01/27/20 History lamotrigine 25 mg tablet 25 mg PO BID #60 tab 12/13/19 01/27/20 Rx levetiracetam 750 mg tablet 750 mg PO BID #60 tab 12/14/19 01/27/20 Rx mirabegron 50 mg tablet,extended 50 mg PO DAILY #90 tab 01/18/20 01/27/20 Rx release 24 hr celecoxib 100 mg PO DAILY 01/27/20 01/27/20 History metoprolol tartrate 25 mg PO DAILY 01/27/20 01/27/20 History risperidone 0.5 mg PO BID 01/27/20 01/27/20 History Allergies Allergy/AdvReac Type Severity Reaction Status Date / Time ertapenem AdvReac Severe seizures Unverified 01/27/20 10:08 enalapril AdvReac Intermediate Cough Verified 01/27/20 10:08 escitalopram AdvReac Intermediate Hallucinati Verified 01/27/20 10:08 ons Past Med/Surg History Medical History Acute dehydration Anxiety Aortic stenosis Bacteremia Chest pain Diabetes Episode of unresponsiveness Goals of care, counseling/discussion Heart disease Hypertension Loss of consciousness Stroke UTI (urinary tract infection) Surgical History H/O aortic valve replacement History of colonoscopy History of cystoscopy with Cystolitholapaxy History of endoscopic gastrointestinal surgery S/P CABG (coronary artery bypass graft) S/P cataract surgery S/P hip replacement S/P tubal ligation Family History Father Myocardial infarction Mother Myocardial infarction Diabetes Stroke Rheumatoid arthritis Family/Other Cancer Other Hypertension Social History Smoking Status: Never smoker Second Hand Exposure: No; Hx Alcohol Use: No Hx Substance Use: No Preferred Language: Uzbek Communication Ability: Impaired Pyridine Recovery Operator Required: No Beliefs That Will Affect Care: None marital status: / Current Living Situation: Family Current Living Situation Comment: Lives with current occupational status: retired Other Information That Helps Us Care for You: No Feels Safe at Home: Yes Safety Concerns: Feels Safe At This Time during the past year weight has: remained stable Seatbelt Use: always Review of Systems Unobtainable due to cognitive status Physical Exam Vital Signs Vital Signs - 24 hr 01/27/20 09:17 01/27/20 10:18 01/27/20 10:20 Temperature 36.7 C Temperature Source Oral Pulse Rate 79 74 Pulse Rate from SpO2 Sensor 75 Respiratory Rate 20 20 Blood Pressure 108/59 L 101/55 L Blood Pressure Mean 75 76 Pulse Oximetry 94 98 98 Oxygen Delivery Method Room Air Room Air Sepsis Recent Fever Within 48 Hours No Sepsis New/Unexplained Change in Mental Status Yes Sepsis Action Taken by Nursing No Action Required 01/27/20 10:43 01/27/20 11:00 01/27/20 11:30 Temperature Temperature Source Pulse Rate 80 70 71 Pulse Rate from SpO2 Sensor 79 71 70 Respiratory Rate 17 16 16 Blood Pressure 131/68 121/63 123/90 Blood Pressure Mean 96 73 101 Pulse Oximetry 98 99 99 Oxygen Delivery Method Sepsis Recent Fever Within 48 Hours Sepsis New/Unexplained Change in Mental Status Sepsis Action Taken by Nursing 01/27/20 12:00 01/27/20 12:30 01/27/20 13:00 Temperature Temperature Source Pulse Rate 69 67 68 Pulse Rate from SpO2 Sensor 69 70 74 Respiratory Rate 26 H 16 26 H Blood Pressure 136/70 119/62 125/64 Blood Pressure Mean 85 74 93 Pulse Oximetry 97 96 96 Oxygen Delivery Method Sepsis Recent Fever Within 48 Hours Sepsis New/Unexplained Change in Mental Status Sepsis Action Taken by Nursing 01/27/20 13:30 01/27/20 14:00 01/27/20 14:30 Temperature Temperature Source Pulse Rate 67 66 66 Pulse Rate from SpO2 Sensor 66 75 66 Respiratory Rate 16 20 16 Blood Pressure 111/56 L 106/48 L 114/55 L Blood Pressure Mean 71 80 73 Pulse Oximetry 95 97 97 Oxygen Delivery Method Sepsis Recent Fever Within 48 Hours Sepsis New/Unexplained Change in Mental Status Sepsis Action Taken by Nursing 01/27/20 14:31 01/27/20 15:00 01/27/20 15:31 Temperature Temperature Source Pulse Rate 61 68 75 Pulse Rate from SpO2 Sensor 64 70 77 Respiratory Rate 15 11 L 15 Blood Pressure 115/60 111/53 L Blood Pressure Mean 80 87 Pulse Oximetry 97 96 96 Oxygen Delivery Method Sepsis Recent Fever Within 48 Hours Sepsis New/Unexplained Change in Mental Status Sepsis Action Taken by Nursing General: Well developed well nourished chronically ill-appearing older female who does open her eyes but is nonverbal in no acute distress, breathing comfortably on room air. HEENT: Normal cephalic atraumatic. Pupils are equal round and reactive to light. Extraocular movements are intact. Oropharynx is pink with moist mucous membranes. No swelling of the mouth lips or tongue. Neck: Supple with a midline trachea. No meningeal signs or stiffness, no JVD or bruits. No Stridor. Chest: Clear to auscultation bilaterally. No wheezes or rhonchi. No increased work of breathing. Heart: Regular rate and rhythm without murmurs or gallops. Abdomen: Soft nontender, nondistended without rebound guarding or rigidity. Sears catheter in place Extremities: No cyanosis clubbing or edema. No calf tenderness or assymetry Spine/Back. Non tender to palpation. No CVA tenderness Skin: Good turgor without rashes. Neurologic exam: No facial droop or asymmetry. Appears to move all 4 extremities when I move them but does not follow command Course Administered Medications Discontinued Medications Sodium Chloride (Nss 1000ml) 1,000 mls @ 999 mls/hr IV .Q1H1M SURJIT Stop: 01/27/20 11:00 Last Infusion: 01/27/20 11:43 Dose: 0 mls/hr Documented by: [id number] Admin: 01/27/20 10:42 Dose: 999 mls/hr Documented by: [id number] Piperacillin Sod/Tazobactam Sod (Zosyn) 4.5 gm in 120 mls @ 240 mls/hr IV NOW ONE Stop: 01/27/20 10:44 Last Infusion: 01/27/20 11:15 Dose: 0 mls/hr Documented by: [id number] Admin: 01/27/20 10:45 Dose: 240 mls/hr Documented by: [id number] Medical Decision Making Differential Diagnosis UTI, sepsis, altered mental status, CVA, trauma, intracranial process, electrolyte or metabolic abnormality Medical Records Attestation: I reviewed the patient's medical records. Home Medications Current Medication List: was personally reviewed by me Laboratory Data Attestation: I reviewed the patient's lab results. Result diagrams: 01/27/20 10:33 01/27/20 10:33 Lab Results 01/27/20 01/27/20 01/27/20 Range/Units 10:33 10:33 10:33 WBC 6.87 (4.8-10.8) K/uL RBC 3.94 L (4.2-5.4) M/uL Hgb 11.7 L (12.0-16.0) g/dL Hct 35.5 L (37-47) % MCV 90.1 (80-100) fL MCH 29.7 (25-34) pg MCHC 33.0 (32-36) g/dL RDW Std Deviation 44.3 (36.4-46.3) fL RDW Coeff of [place] 13.3 (11.5-14.5) % Plt Count 107 L (130-400) K/uL MPV 10.6 H (7.4-10.4) fL Immature Gran % (Auto) 0.3 % Neut % (Auto) 95.4 % Lymph % (Auto) 3.3 % [place] % (Auto) 0.7 % Eos % (Auto) 0.3 % Baso % (Auto) 0.0 % Neut # (Auto) 6.55 H (1.4-6.5) K/uL Lymph # (Auto) 0.23 L (1.2-3.4) K/uL [place] # (Auto) 0.05 L (0.11-0.59) K/uL Eos # (Auto) 0.02 (0-0.5) K/uL Baso # (Auto) 0.00 (0-0.2) K/uL Immature Gran # (Auto) 0.02 (0.00-0.02) K/uL PT 10.7 (9.0-12.0) Seconds INR 1.0 (0.9-1.1) APTT < 20.0 L (21.0-31.0) Seconds PTT Ratio 0.7 Sodium 141 (136-145) mmol/L Potassium 4.2 (3.5-5.1) mmol/L Chloride 108 H (98-107) mmol/L Carbon Dioxide 26 (21-32) mmol/L Anion Gap 7.0 (3-11) BUN 38 H (7-18) mg/dl Creatinine 1.11 (0.6-1.2) mg/dl Est Cr Clr Drug Dosing 33.6 ml/min Est GFR ( Amer) 53.2 Est GFR (Non-Af Amer) 45.9 BUN/Creatinine Ratio 34.6 H (10-20) Glucose 110 H (70-99) mg/dl Lactate (0.4-2.0) mmol/L Calcium 9.7 (8.5-10.1) mg/dl Magnesium 2.0 (1.8-2.4) mg/dl Total Bilirubin 0.5 (0.2-1) mg/dl AST 49 H (15-37) U/L ALT 34 (12-78) U/L Alkaline Phosphatase 105 (45-117) U/L Troponin I < 0.015 (0-0.045) ng/ml Total Protein 7.0 (6.4-8.2) gm/dl Albumin 3.4 (3.4-5.0) gm/dl Globulin 3.6 (2.5-4.0) gm/dl Albumin/Globulin Ratio 0.9 (0.9-2) Urine Color Urine Appearance (Clear) Urine pH (4.5-7.5) Ur Specific [place] (1.000-1.030) Urine Protein (Negative) Urine Glucose (UA) (Negative) Urine Ketones (Negative) Urine Blood (Negative) Urine Nitrite (Negative) Urine Bilirubin (Negative) Urine Urobilinogen (Negative) Ur Leukocyte Esterase (Negative) Urine WBC (Auto) (0-5) /hpf Urine RBC (Auto) (0-4) /hpf U Hyaline Cast (Auto) (0-5) /lpf U Epithel Cells (Auto) (0-5) /lpf Urine Bacteria (Auto) (Negative) Urine Yeast 01/27/20 01/27/20 Range/Units 10:46 11:47 WBC (4.8-10.8) K/uL RBC (4.2-5.4) M/uL Hgb (12.0-16.0) g/dL Hct (37-47) % MCV (80-100) fL MCH (25-34) pg MCHC (32-36) g/dL RDW Std Deviation (36.4-46.3) fL RDW Coeff of [place] (11.5-14.5) % Plt Count (130-400) K/uL MPV (7.4-10.4) fL Immature Gran % (Auto) % Neut % (Auto) % Lymph % (Auto) % [place] % (Auto) % Eos % (Auto) % Baso % (Auto) % Neut # (Auto) (1.4-6.5) K/uL Lymph # (Auto) (1.2-3.4) K/uL [place] # (Auto) (0.11-0.59) K/uL Eos # (Auto) (0-0.5) K/uL Baso # (Auto) (0-0.2) K/uL Immature Gran # (Auto) (0.00-0.02) K/uL PT (9.0-12.0) Seconds INR (0.9-1.1) APTT (21.0-31.0) Seconds PTT Ratio Sodium (136-145) mmol/L Potassium (3.5-5.1) mmol/L Chloride (98-107) mmol/L Carbon Dioxide (21-32) mmol/L Anion Gap (3-11) BUN (7-18) mg/dl Creatinine (0.6-1.2) mg/dl Est Cr Clr Drug Dosing ml/min Est GFR ( Amer) Est GFR (Non-Af Amer) BUN/Creatinine Ratio (10-20) Glucose (70-99) mg/dl Lactate 1.8 (0.4-2.0) mmol/L Calcium (8.5-10.1) mg/dl Magnesium (1.8-2.4) mg/dl Total Bilirubin (0.2-1) mg/dl AST (15-37) U/L ALT (12-78) U/L Alkaline Phosphatase (45-117) U/L Troponin I (0-0.045) ng/ml Total Protein (6.4-8.2) gm/dl Albumin (3.4-5.0) gm/dl Globulin (2.5-4.0) gm/dl Albumin/Globulin Ratio (0.9-2) Urine Color Dark Yellow Urine Appearance Turbid A (Clear) Urine pH 5.0 (4.5-7.5) Ur Specific [place] 1.025 (1.000-1.030) Urine Protein 1+ H (Negative) Urine Glucose (UA) Negative (Negative) Urine Ketones Trace H (Negative) Urine Blood 3+ H (Negative) Urine Nitrite Positive A (Negative) Urine Bilirubin Negative (Negative) Urine Urobilinogen Negative (Negative) Ur Leukocyte Esterase 3+ H (Negative) Urine WBC (Auto) >30 H (0-5) /hpf Urine RBC (Auto) >30 H (0-4) /hpf U Hyaline Cast (Auto) 5-10 H (0-5) /lpf U Epithel Cells (Auto) >30 H (0-5) /lpf Urine Bacteria (Auto) 2+ H (Negative) Urine Yeast Not Reportable Imaging Data Radiologist's Impression: CT head/brain wo con CLINICAL HISTORY: Acute change in mental status. Unresponsive patient. COMPARISON STUDY: 12/06/2019 TECHNIQUE: Axial CT of the brain is performed from the vertex to the skull base. IV contrast was not administered for this examination. A dose lowering technique was utilized adhering to the principles of ALARA. CT DOSE: 691.05 mGy.cm FINDINGS: No intra or extra-axial mass lesions are visualized. There is no CT evidence of acute cortical infarction. There is no evidence of midline shift. There is no acute hemorrhage. No calvarial fractures are visualized. There are extensive white matter hypodensities likely on a small vessel basis. There are old bilateral parietal lobe infarcts right larger than left There is no evidence of pathologic ventricular dilatation. There is no evidence of acute sinusitis IMPRESSION: Old post infarct changes. No acute intracranial findings XR chest 1V portable CLINICAL HISTORY: SEPSIS COMPARISON STUDY: 12/06/2019 FINDINGS: There are postsurgical changes of a midline sternotomy and valvular replacement. There is no acute parenchymal consolidation. There is no failure. There are no pleural effusions. Arthritic changes are present within the shoulders. Slight increased markings within the upper lung zones are felt to be related to technical factors.[ IMPRESSION: No active disease in the chest. ECG Data Attestation: I personally reviewed and interpreted this ECG as follows: Indication: + altered mental status Rate (beats per minute): 70 Rhythm: + normal sinus ECG Intervals/blocks: + Left bundle branch block, + Normal QT and + Normal SD ECG [place]: + Left axis deviation ECG ST segments: + repolarization abnormalities ECG Findings: no PACs and no PVCs Comparison ECG Date: from (12/06/19) Change: the following changes noted (LBBB has replaced RBBB) Blood Pressure Blood Pressure Findings: Normal blood pressure MDM Narrative This patient is brought in after having altered mental status. She does get frequent UTIs she is also had strokes before. Her neurologic exam is difficult to assess due to baseline limitations. At this point I do not feel she is a TPA candidate as her symptoms are more global additionally she has multiple other morbidities. Her son says they have actually talked about put her in hospice in the past. On my exam, she has no facial droop and appears to move all 4 extremities symmetrically although she is difficult to examine. Think most like this is more of a UTI. Multiple blood testing was obtained she does have a urine culture from the other day which grew Enterobacter and based on this we will give her IV Zosyn due to her history of ESBL as well. A full sepsis work- up was obtained as well as a CAT scan of her head. She was reassessed frequently. CAT scan of her head is unremarkable. Her urinalysis does suggest a UTI and she had a culture that did show recent infection. She has no significant white count or fever to suggest infection. She has no significant electrolyte or metabolic abnormalities. her BUN is mildly elevated she is likely dehydrated she has received some IV fluids. I do think she needs to be admitted/observed. I have discussed the care with her son who tells me that she is a DO NOT RESUSCITATE. I discussed the care with the [facility] Hospitalist who was seen in the ER for these measures. Continuous cardiac monitoring: An order was placed in the computer for continuous cardiac monitoring. She was noted to be in normal sinus rhythm with a pulse of 79. Impression & Plan Altered mental status, Acute UTI (urinary tract infection), DNR (do not res uscitate), Acute dehydration Discharge Plan Visit Data Chief Complaint: Altered Mental Status Stated Complaint: [facility] ED Provider: Ruddy Green Discharge Problem: Altered mental status, Acute UTI (urinary tract infection), DNR (do not resuscitate), Acute dehydration Forms Stand Alone Forms: My [facility] Prescriptions Prescriptions: No Action diclofenac sodium [Voltaren] 1 % gel 2 gm TOP QID PRN (Reason: JOINT PAIN) Qty: 100 RF: 0 levetiracetam 750 mg tablet 750 mg PO BID Qty: 60 RF: 3 Myrbetriq 50 mg tablet extended release 24 hr 50 mg PO DAILY Qty: 90 RF: 0 lamotrigine [Lamictal] 25 mg tablet 25 mg PO BID Qty: 60 RF: 2 cholecalciferol (vitamin D3) [Vitamin D3] 2,000 unit Capsule 2,000 units PO HS RF: 0 thiamine HCl (vitamin B1) [Vitamin B-1] 250 mg Tablet 250 mg PO QAM RF: 0 atorvastatin [Lipitor] 10 mg tablet 10 mg PO QAM RF: 0 polyethylene glycol 3350 [Miralax] 17 gram powder in packet 17 g PO BID PRN (Reason: Constipation) RF: 0 celecoxib 100 mg capsule 100 mg PO DAILY RF: 0 risperidone 0.5 mg tablet 0.5 mg PO BID RF: 0 metoprolol tartrate 25 mg tablet 25 mg PO DAILY RF: 0 folic acid 800 mcg Tablet 0.8 mg PO QAM RF: 0 cyanocobalamin (vitamin B-12) [Vitamin B-12] 5,000 mcg Tablet, Sublingual 5,000 mcg PO QAM RF: 0 docusate sodium 100 mg Tablet 100 mg PO QAM RF: 0 Saccharomyces boulardii 250 mg Capsule 250 mg PO QAM RF: 0 nystatin 100,000 unit/gram Powder 1 applic TOPICAL TID PRN (Reason: .) RF: 0 ferrous sulfate 325 mg (65 mg iron) Tablet,Delayed Release (Dr/Ec) 325 mg PO BIDM 30 Days Qty: 60 RF: 3 acetaminophen [Tylenol Extra Strength] 500 mg Tablet 500 mg PO BID RF: 0 aspirin 81 mg Tablet,Delayed Release (Dr/Ec) 81 mg PO QAM RF: 0 Discharge Problem: Altered mental status Qualifiers: Altered mental status type: unspecified Qualified Code(s): R41.82 - Altered mental status, unspecified
[2020-01-27] MEDS ORDERED: PIPERACILLIN/TAZOBACTAM 4.5 GM/120 ML BAG IV ONE (10:15)
--- NOTE | 2020-01-27 10:35 | XRay Report ---
XR chest 1V portable CLINICAL HISTORY: SEPSIS COMPARISON STUDY: 12/06/2019 FINDINGS: There are postsurgical changes of a midline sternotomy and valvular replacement. There is n o acute parenchymal consolidation. There is no failure. There are no pleural effusions. Arthritic james nges are present within the shoulders. Slight increased markings within the upper lung zones are felt to be related to technical factors.[ IMPRESSION: No active disease in the chest. ACT 112: Negative or not required by law. Electronically signed by: Berny Diallo M.D. 01/27/2020 10:34 AM
[2020-01-27 11:02] LABS: Eosinophils # (auto) 0.02 K/uL (0-0.5); Eosinophils % (auto) 0.3 %; Hematocrit (blood only) 35.5 % (37-47); Hemoglobin 11.7 g/dL (12.0-16.0); Immature Granulocytes # (auto) 0.02 K/uL (0.00-0.02); Immature Granulocytes % (auto) 0.3 %; Lymphocytes # (auto) 0.23 K/uL (1.2-3.4); Lymphocytes % (auto) 3.3 %; Mean Corpuscular Hemoglobin 29.7 pg (25-34); Mean Corpuscular Volume 90.1 fL (80-100); Mean Platelet Volume 10.6 fL (7.4-10.4); Monocytes # (auto) 0.05 K/uL (0.11-0.59); Monocytes % (auto) 0.7 %; Neutrophils # (auto) 6.55 K/uL (1.4-6.5); Neutrophils % (auto) 95.4 %; Platelet Count 107 K/uL (130-400); RDW Coefficient of Variation 13.3 % (11.5-14.5); RDW Standard Deviation 44.3 fL (36.4-46.3); Red Blood Count 3.94 M/uL (4.2-5.4); White Blood Count 6.87 K/uL (4.8-10.8)
[2020-01-27 11:14] LABS: Partial Thromboplastin Ratio 0.7; Partial Thromboplastin Time < 20.0 Seconds (21.0-31.0); Prothrombin Time 10.7 Seconds (9.0-12.0)
[2020-01-27 11:19] LABS: Alanine Aminotransferase 34 U/L (12-78); Albumin Level 3.4 gm/dl (3.4-5.0); Aspartate Aminotransferase 49 U/L (15-37); BUN Creatinine Ratio 34.6 (10-20); Blood Urea Nitrogen 38 mg/dl (7-18); Calcium 9.7 mg/dl (8.5-10.1); Carbon Dioxide 26 mmol/L (21-32); Chloride 108 mmol/L (98-107); Creatinine Clr Calc Pharmacy 33.6 ml/min; Est GFR (African American) 53.2; Est GFR (Non-African American) 45.9; Glucose 110 mg/dl (70-99); Potassium 4.2 mmol/L (3.5-5.1); Sodium 141 mmol/L (136-145)
[2020-01-27 11:24] LABS: Albumin Globulin Ratio 0.9 (0.9-2); Alkaline Phosphatase 105 U/L (45-117); Bilirubin,Total 0.5 mg/dl (0.2-1); Globulin 3.6 gm/dl (2.5-4.0); Troponin I < 0.015 ng/ml (0-0.045)
--- NOTE | 2020-01-27 11:48 | CT Scan Report ---
CT head/brain wo con CLINICAL HISTORY: Acute change in mental status. Unresponsive patient. COMPARISON STUDY: 12/06/2019 TECHNIQUE: Axial CT of the brain is performed from the vertex to the skull base. IV contrast was not administered for this examination. A dose lowering technique was utilized adhering to the principles of ALARA. CT DOSE: 691.05 mGy.cm FINDINGS: No intra or extra-axial mass lesions are visualized. There is no CT evidence of acute cortical infarc tion. There is no evidence of midline shift. There is no acute hemorrhage. No calvarial fractures ar e visualized. There are extensive white matter hypodensities likely on a small vessel basis. There are old bilatera l parietal lobe infarcts right larger than left There is no evidence of pathologic ventricular dilatation. There is no evidence of acute sinusitis IMPRESSION: Old post infarct changes. No acute intracranial findings ACT 112: Negative or not required by law. Electronically signed by: Berny Diallo M.D. 01/27/2020 11:47 AM
[2020-01-27 11:56] LABS: Appearance Urine Turbid (Clear); Bacteria Urine Automated 2+ (Negative); Blood Urine 3+ (Negative); Color Urine Dark Yellow; Epithelial Cell Urine Auto >30 /lpf (0-5); Glucose Urine UA Negative (Negative); Ketones Urine Trace (Negative); Leukocyte Esterase Urine 3+ (Negative); Nitrite Urine Positive (Negative); Protein Urine 1+ (Negative); Specific Gravity Urine 1.025 (1.000-1.030); Urobilinogen Urine Negative (Negative); WBC Urine Automated >30 /hpf (0-5)
[2020-01-27 12:09] LABS: Bilirubin Urine Negative (Negative); Ictotest Urine Negative (Negative)
[2020-01-27 12:25] LABS: RBC Urine Automated >30 /hpf (0-4)
--- NOTE | 2020-01-27 12:53 | History & Physical Report ---
Date of Service January 27, 2020 Assessment & Plan (1) AMS (altered mental status): (2) Catheter-associated urinary tract infection: -Admit to [facility] with telemetry -UA collected, turbid, positive esterase and nitrate, >30 WBC, 2+ bacteria, follow cultures for sensitivities, last catheter change was 1 week ago. Has on the health home care nurses x14 hours/d -Continue IV Zosyn as was started in the ER -WBC = 6.87, afebrile, no lactic acid, lethargic on exam but awakens to verbal stimuli -Follows with Dr. Isaac, infectious disease as outpatient -Consult urology for possible removal of catheter, was placed for what sounds like wound healing with chronic incontinence. (3) Seizure disorder: -History of such, follows with Dr. Quiñones as an outpatient, continue Lamictal and Keppra -Check lamotrigine level for toxicity/therapeutic dosing -Hemoglobin 11.7, appears to be at baseline (4) Anemia: -Continue ferrous sulfate -Hemoglobin 11.7, appears to be at baseline, (5) Hypertension: -Antihypertensives include metoprolol tartrate 25 mg daily (6) Hyperlipidemia: -Continue statin therapy (7) CAD (coronary artery disease): -Continue ASA 81 mg daily, atorvastatin 10 mg, metoprolol tartrate (8) Chronic diastolic (congestive) heart failure: -Last echo completed on 11/15 2019 showing a preserved EF of 55 to 60%, mild LVH, basal septum thickened and angulated consistent with sigmoid septum, apical wall motion abnormality but likely due to pacemaker insertion, no regional wall motion abnormalities, bioprosthetic aortic valve mild mitral regurg -Continue medications as above (9) S/P aortic valve replacement with porcine valve: -Noted (10) Chronic kidney disease, stage 3a: -Creatinine 1.11, BUN 38, trend with a.m. PRP (11) Aortic stenosis: -Noted (12) RIOS (generalized anxiety disorder): -Continue Risperdal 0.5 mg BID, Lamictal -Son reports patient with severe anxiety and dementia requires one-to-one bedside sitter, currently asleep- will order now (13) Malnourished: -Continue boost supplementation with meals once allowed diet -ENT scheduled to see her as an outpatient for swallow dysfunction- appt scheduled on -will consult speech here, n.p.o. until evaluation (14) DVT prophylaxis: - teds, heparin subcu CODE: DNR/DNI Dispo: From home, likely to remain in the hospital x 1-2 days History of Present Illness Primary Care Provider: Aurora Estrada MD This is an 84 yo F with PMHx of severe dementia, history of catheter associated UTI growing out Enterobacter and ESBL E. coli requiring hospitalizations, seizure disorder, pressure ulceration, CAD, s/p aortic valve replacement with porcine valve, CKD stage III, anxiety. Patient presents today with worsening altered mental status from home. The patient's son, Dixon is present at bedside and supports the history as she is asleep and not easily awakened due to AMS. He reports that 3 months ago she was admitted for UTI and receiving an IV antibiotic, and then developed seizure, ended up being transferred to [facility] and treated there. At that point time she was intubated x1 day and then successfully extubated and she was able to return home again. Son reports having difficulty determining the patient's CODE STATUS, he reports having hospice being pushed at him over the last few months by multiple providers and struggles with this. He reports that if she is dying from natural causes then she is a DNR/DNI. If she were to seize in the interim then he would want her to be ventilated as she was able to come off ventilator before. After that hospital stay at [place], it was noted by home health nursing that she had swelling in the left lower extremity. She was evaluated here at [facility] and found to have a left hip fracture which was fixed the day after coming home from [facility]. After that she subsequently developed multiple pressure ulcerations including sacral decubitus region. Due to her incontinence a chronic Sears catheter was placed to help wounds heal. Since then she has had multiple recurrent UTIs which have been catheter associated g rowing out E. coli ESBL and enterococcus. She started seeing Dr. Isaac, with infectious disease out of [facility]. The last antibiotic taken was fosfomycin 3 g on 12/19/2019 and 12/22/2019. She had been following with Dr. Viveros with urology here at [facility], however after his departure she has not been back to see a urologist. Catheter was last changed approximately 1 week ago. This morning the patient had difficulty walking, seemed altered, had little desire to eat and was not able to feed herself which she normally can do at baseline. He was concerned that she had some slight facial drooping on the left, however this is completely resolved. She is found to have a grossly infected urine in the ER. CT of the head is negative for any acute CVA. 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 Of note the patient has a ENT appointment scheduled for Wednesday as she has had difficulty with food getting stuck/swallowing issues since being intubated. Son is hopeful that she can have scheduled laryngoscope done on Wednesday as already scheduled. Allergies Allergy/AdvReac Type Severity Reaction Status Date / Time ertapenem AdvReac Severe seizures Unverified 01/31/20 12:56 enalapril AdvReac Intermediate Cough Verified 01/31/20 12:56 escitalopram AdvReac Intermediate Hallucinati Verified 01/31/20 12:56 ons Home Medications Home Medications Medication Instructions Recorded Confirmed Type cholecalciferol (vitamin D3) 2,000 units PO HS 04/04/18 01/31/20 History [Vitamin D3] thiamine HCl (vitamin B1) [Vitamin 250 mg PO QAM 10/21/18 01/31/20 History B-1] atorvastatin [Lipitor] 10 mg PO QAM 06/29/19 01/31/20 History cyanocobalamin (vitamin B-12) 5,000 mcg PO QAM 07/20/19 01/31/20 History [Vitamin B-12] folic acid 0.8 mg PO QAM 07/20/19 01/31/20 History diclofenac sodium 1 % topical gel 2 gm TOP QID PRN #100 gm 08/07/19 01/31/20 Rx polyethylene glycol 3350 [Miralax] 17 g PO BID PRN 09/19/19 01/31/20 History Saccharomyces boulardii 250 mg PO QAM 10/04/19 01/31/20 History docusate sodium 100 mg PO QAM 10/04/19 01/31/20 History nystatin 1 applic TOPICAL TID PRN 10/04/19 01/31/20 History ferrous sulfate 325 mg PO BIDM 30 Days #60 tab 10/09/19 01/31/20 Rx acetaminophen [Tylenol Extra 500 mg PO BID 11/13/19 01/31/20 History Strength] aspirin 81 mg PO QAM 11/13/19 01/31/20 History lamotrigine 25 mg tablet 25 mg PO BID #60 tab 12/13/19 01/31/20 Rx levetiracetam 750 mg tablet 750 mg PO BID #60 tab 12/14/19 01/31/20 Rx mirabegron 50 mg tablet,extended 50 mg PO DAILY #90 tab 01/18/20 01/31/20 Rx release 24 hr celecoxib 100 mg PO DAILY 01/27/20 01/31/20 History metoprolol tartrate 25 mg PO DAILY 01/27/20 01/31/20 History risperidone 0.5 mg PO BID 01/27/20 01/31/20 History cefdinir 300 mg PO BID 5 Days #11 cap 01/30/20 01/31/20 Rx Past Med/Surg History Medical History Acute dehydration Anxiety Aortic stenosis Bacteremia Chest pain Diabetes Episode of unresponsiveness Goals of care, counseling/discussion Heart disease Hypertension Loss of consciousness Stroke UTI (urinary tract infection) Surgical History H/O aortic valve replacement History of colonoscopy History of cystoscopy with Cystolitholapaxy History of endoscopic gastrointestinal surgery S/P CABG (coronary artery bypass graft) S/P cataract surgery S/P hip replacement S/P tubal ligation Family History (Updated 01/31/20 @ 13:12 by Carline Jaramillo RN) Father Myocardial infarction Hearing loss Stroke Mother Myocardial infarction Diabetes Stroke Rheumatoid arthritis Hearing loss Hypertension Family/Other Cancer Denies family history of No family history of adverse response to anesthesia Social History (Updated 01/31/20 @ 13:13 by Carline Jaramillo RN) Smoking Status: Never smoker Second Hand Exposure: No; Do You Dip or Chew Tobacco: No; Hx Alcohol Use: No Hx Substance Use: No Preferred Language: Cook Islander Communication Ability: Impaired Bean Snipper Required: No Beliefs That Will Affect Care: None marital status: / Current Living Situation: Family Current Living Situation Comment: Lives with current occupational status: retired How many Children do You have: 5 Feels Safe at Home: Yes during the past year weight has: remained stable Seatbelt Use: always Review of Systems Review of Systems: Unobtainable due to cognitive status Physical Exam Physical Exam: General: Asleep, appears comfortable Head: Normocephalic, atraumatic ENT: PERRL, EOMI, MMM Chest: Clear to auscultation, on room air, no adventitious breath sounds Cardiac: Regular rate and rhythm, + faint systolic murmur, no JVD, normal peripheral pulses, good capillary refill Abdominal: NABS x 4 quadrants, soft, nondistended, nontender to palpation, no rebound or guarding : Catheter in place draining clear yellow urine Extremities: Normal inspection, no peripheral edema or erythema, calfs nontender to palpation Psych: Normal mood and affect Neuro: no motor deficits, no focal deficits, no facial droop, no peripheral sensory deficits, gait not assessed Results & Data Results & Data ([facility]) Vital Signs (Past 12 Hours) Vital Signs Temp Pulse Resp BP Pulse Ox 01/27/20 12:00 69 26 H 136/70 97 01/27/20 11:30 71 16 123/90 99 01/27/20 11:00 70 16 121/63 99 01/27/20 10:43 80 17 131/68 98 01/27/20 10:20 98 01/27/20 10:18 74 20 101/55 L 98 01/27/20 09:17 36.7 C 79 20 108/59 L 94 Code Status & VTE Plan Code Status DNR- discussed with pt's son at bedside Supervising Physician Co-Signing Physician Notes During my face to face encounter with the patient, I obtained a history and physical examination on the patient. I discussed plan of care with patient and Brooke Velasquez and answered patient's questions. I reviewed above note and agree with it. Patient is a poor historian given her AMS. Unsure of the cause at this time, will place her on antibiotics for possible UTI PG Care Time/CCT Total # of Minutes Spent Total Time Spent with Patient: Total time spent is greater than 50% in coordination of care (as documented) at patient's floor/unit and/or counseling patient: Coding Level of Care Code 78604 Initial Inpt Care Lvl 3 Diagnoses AMS (altered mental status) R41.82 Altered mental status type: unspecified Catheter-associated urinary tract infection T83.511A; N39.0 Seizure disorder G40.909 Anemia D64.9 Hypertension I10 Hyperlipidemia E78.2 Hyperlipidemia type: mixed hyperlipidemia CAD (coronary artery disease) I25.10 Chronic diastolic (congestive) heart failure I50.32 S/P aortic valve replacement with porcine valve Z95.3 Chronic kidney disease, stage 3a N18.3 Aortic stenosis I35.0 Cardiac valve disease etiology: etiology unspecified RIOS (generalized anxiety disorder) F41.1 Malnourished E46 DVT prophylaxis Z29.9 (1) Aortic stenosis Cardiac valve disease etiology: etiology unspecified Qualified Code(s): I35.0 - Nonrheumatic aortic (valve) stenosis (2) Hyperlipidemia Hyperlipidemia type: mixed hyperlipidemia Qualified Code(s): E78.2 - Mixed hyperlipidemia (3) AMS (altered mental status) Altered mental status type: unspecified Qualified Code(s): R41.82 - Altered mental status, unspecified
[2020-01-27] MEDS ORDERED: DICLOFENAC SOD 1% GEL 100 GM TUBE EXT PRN (17:43)
[2020-01-27] MEDS ORDERED: ONDANSETRON INJ 2 MG/ML 2 ML VIAL IV PRN (17:43)
[2020-01-27] MEDS ORDERED: PIPERACILL/TAZOBAC CONSULT ACTIVE PRN (17:43)
[2020-01-27] MEDS ORDERED: NYSTATIN POWDER 15GM BTL EXT PRN (17:43)
[2020-01-27] MEDS ORDERED: POLYETHYLENE (MIRALAX) 17 GM PACK PO PRN (17:43)
[2020-01-27] MEDS ORDERED: FERROUS SULFATE 325 MG TAB PO SCH (18:30)
[2020-01-27] MEDS: PIPERACILLIN/TAZOBACTAM 3.375 GM in DEXTROSE 5% 100 ML IV SCH (20:03)
[2020-01-27] MEDS ORDERED: levETIRAcetam 250 MG TAB PO SCH (21:00)
[2020-01-27] MEDS ORDERED: CHOLECALCIFEROL 1,000 UNITS 25 MCG TAB PO SCH (21:00)
[2020-01-27] MEDS ORDERED: ACETAMINOPHEN 500 MG TAB PO SCH (21:00)
--- NOTE | 2020-01-27 21:14 | Urology Consultation ---
Date of Consultation January 27, 2020 Assessment & Plan (1) AMS (altered mental status): (2) Chronic UTI: Patient admitted for altered mental status and presumed infection. Long history of chronic UTIs with chronic retention and chronic Sears. Patient had been previously managed by Dr. Viveros. According to records patient was brought in due to decreased responsiveness and increased weakness. Patient has significant issues at baseline. Patient is currently resting comfortably. She is overall poor historian. Agree with plans for supportive care IV antibiotics and monitoring. Will await full cultures. High chance the patient is colonized due to chronic catheterization. If considerably resistant or pathogenic species will likely need antibiotic intervention I can be de-escalated depending on sensitivities. Patient had a CT scan in November this was reviewed interpreted by myself. No considerable obstructions or other issues however there is some bladder thickening likely from chronic irritation from chronic catheter. Agree with hydration and supportive care. Will monitor and be available if any changes major issues or concerns. Patient is currently stable vital signs. History of Present Illness Attending Physician: Mendel Irene History of Present Illness Longtime patient of Dr. Viveros's with history of severe chronic UTIs as well as chronic incomplete emptying/retention with Sears. Patient had been on suppression. Had been following for her chronic UTIs. Is on suppression therapy. Prior to this has had multiple episodes. Has had considerable confusion and decreasing responsiveness with UTIs. Presented to the ER with similar symptoms and was admitted for supportive care with IV antibiotics and close monitoring with presumed UTI. Patient is at baseline week and has considerable issues with memory. Patient overall poor historian. At baseline according to records is minimally verbal. This was also confirmed with nursing. Consultation for patient with UTI/Pyelo, discomfort, and ill feelings. Patient usually presents with altered mental status with her UTIs. Did not have any considerable sudden onset of pain into flank going down and radiating into groin and back in waves comes and goes. Discussed and reviewed patient's family history for any history of issues, infections, and disease. Also, discussed patient's medical/surgery history especially related to any history of urinary issues or stone disease. Majority of information gone from patient history due to patient's altered mental status. Patient was admitted and is undergoing observation with broad spectrum IV antibiotics. Will need outpatient follow-up and may need to consider changing suppression options as she appears to be having increased frequency of UTI issues with hospitalizations. Allergies Allergy/AdvReac Type Severity Reaction Status Date / Time ertapenem AdvReac Severe seizures Unverified 01/27/20 10:08 enalapril AdvReac Intermediate Cough Verified 01/27/20 10:08 escitalopram AdvReac Intermediate Hallucinati Verified 01/27/20 10:08 ons Home Medications Home Medications Medication Instructions Recorded Confirmed Type cholecalciferol (vitamin D3) 2,000 units PO HS 04/04/18 01/27/20 History [Vitamin D3] thiamine HCl (vitamin B1) [Vitamin 250 mg PO QAM 10/21/18 01/27/20 History B-1] atorvastatin [Lipitor] 10 mg PO QAM 06/29/19 01/27/20 History cyanocobalamin (vitamin B-12) 5,000 mcg PO QAM 07/20/19 01/27/20 History [Vitamin B-12] folic acid 0.8 mg PO QAM 07/20/19 01/27/20 History diclofenac sodium 1 % topical gel 2 gm TOP QID PRN #100 gm 08/07/19 01/27/20 Rx polyethylene glycol 3350 [Miralax] 17 g PO BID PRN 09/19/19 01/27/20 History Saccharomyces boulardii 250 mg PO QAM 10/04/19 01/27/20 History docusate sodium 100 mg PO QAM 10/04/19 01/27/20 History nystatin 1 applic TOPICAL TID PRN 10/04/19 01/27/20 History ferrous sulfate 325 mg PO BIDM 30 Days #60 tab 10/09/19 01/27/20 Rx acetaminophen [Tylenol Extra 500 mg PO BID 11/13/19 01/27/20 History Strength] aspirin 81 mg PO QAM 11/13/19 01/27/20 History lamotrigine 25 mg tablet 25 mg PO BID #60 tab 12/13/19 01/27/20 Rx levetiracetam 750 mg tablet 750 mg PO BID #60 tab 12/14/19 01/27/20 Rx mirabegron 50 mg tablet,extended 50 mg PO DAILY #90 tab 01/18/20 01/27/20 Rx release 24 hr celecoxib 100 mg PO DAILY 01/27/20 01/27/20 History metoprolol tartrate 25 mg PO DAILY 01/27/20 01/27/20 History risperidone 0.5 mg PO BID 01/27/20 01/27/20 History Patient History Medical History Acute dehydration Anxiety Aortic stenosis Bacteremia Chest pain Diabetes Episode of unresponsiveness Goals of care, counseling/discussion Heart disease Hypertension Loss of consciousness Stroke UTI (urinary tract infection) Surgical History H/O aortic valve replacement History of colonoscopy History of cystoscopy with Cystolitholapaxy History of endoscopic gastrointestinal surgery S/P CABG (coronary artery bypass graft) S/P cataract surgery S/P hip replacement S/P tubal ligation Family History Father Myocardial infarction Mother Myocardial infarction Diabetes Stroke Rheumatoid arthritis Family/Other Cancer Other Hypertension Social History Smoking Status: Never smoker Second Hand Exposure: No; Hx Alcohol Use: No Hx Substance Use: No Preferred Language: Mexican Communication Ability: Impaired Formal Waiter/Waitress Required: No Beliefs That Will Affect Care: None marital status: / Current Living Situation: Family Current Living Situation Comment: Lives with current occupational status: retired Other Information That Helps Us Care for You: No Feels Safe at Home: Yes Safety Concerns: Feels Safe At This Time during the past year weight has: remained stable Seatbelt Use: always Review of Systems Review of Systems: All systems reviewed & are unremarkable except as noted in HPI & below Physical Exam Physical Exam: General: Altered mental status with significant dementia/memory issues at baseline. Baseline weak and minimally verbal. Advanced age. Significant chronic Medical issues. HEENT: Normocephalic. Inspection normal. Cranial Nerves 2-12 Grossly intact with some hearing issues. Normal inspection of face. Normal inspection of neck. Psychologic: Minimally responsive however according to records this is approximately patient's baseline. Had decreased per family which is what brought him to the ER. Respiratory: Nonlabored. No use of accessory muscles. No tachypnea or dyspnea. Cardiovascular: No tachycardia Skin: Carrizo and Dry. No rashes or visible lesions. Extremities/Lymphatics: Resting in bed. Significant mobility issues Abdomen: Soft Non-distended. No rebound or guarding. : Sears in place draining urine Results & Data ([facility]) Vital Signs (Past 12 Hours) Vital Signs Temp Pulse Pulse Resp BP BP Pulse Ox 01/27/20 20:04 36.8 C 87 20 125/75 98 01/27/20 18:07 36.8 C 78 18 148/79 H 98 01/27/20 18:00 70 01/27/20 15:31 75 15 111/53 L 96 01/27/20 15:00 68 11 L 115/60 96 01/27/20 14:31 61 15 97 01/27/20 14:30 66 16 114/55 L 97 01/27/20 14:00 66 20 106/48 L 97 01/27/20 13:30 67 16 111/56 L 95 01/27/20 13:00 68 26 H 125/64 96 01/27/20 12:30 67 16 119/62 96 01/27/20 12:00 69 26 H 136/70 97 01/27/20 11:30 71 16 123/90 99 01/27/20 11:00 70 16 121/63 99 01/27/20 10:43 80 17 131/68 98 01/27/20 10:20 98 01/27/20 10:18 74 20 101/55 L 98 01/27/20 09:17 36.7 C 79 20 108/59 L 94 PG Care Time/CCT Total # of Minutes Spent Total Time Spent with Patient: Total time spent is greater than 50% in coordination of care (as documented) at patient's floor/unit and/or counseling patient: Coding Level of Care Code 50250 Inpt Consult Level 5 Diagnoses AMS (altered mental status) R41.82 Altered mental status type: unspecified Chronic UTI N39.0 (1) AMS (altered mental status) Altered mental status type: unspecified Qualified Code(s): R41.82 - Altered mental status, unspecified
[2020-01-27] MEDS: levETIRAcetam 750 MG in 0.9 % SODIUM CHLORIDE 100 ML IV SCH (21:54)
[2020-01-27] MEDS: lamoTRIgine 25 MG TAB PO SCH (21:54)
[2020-01-27] MEDS: risperiDONE 0.5 MG TABLET PO SCH (21:56)
[2020-01-28] MEDS: PIPERACILLIN/TAZOBACTAM 3.375 GM in DEXTROSE 5% 100 ML IV SCH ×3 (02:28→17:54)
[2020-01-28 07:41] LABS: Hematocrit (blood only) 33.6 % (37-47); Hemoglobin 10.8 g/dL (12.0-16.0); Mean Corpuscular Hemoglobin 29.3 pg (25-34); Mean Corpuscular Hgb Conc 32.1 g/dL (32-36); Mean Corpuscular Volume 91.3 fL (80-100); Mean Platelet Volume 11.1 fL (7.4-10.4); Platelet Count 101 K/uL (130-400); RDW Coefficient of Variation 13.7 % (11.5-14.5); RDW Standard Deviation 45.5 fL (36.4-46.3); Red Blood Count 3.68 M/uL (4.2-5.4); White Blood Count 11.08 K/uL (4.8-10.8)
[2020-01-28 08:18] LABS: BUN Creatinine Ratio 33.9 (10-20); Calcium 9.4 mg/dl (8.5-10.1); Est GFR (African American) 61.8; Est GFR (Non-African American) 53.3
[2020-01-28 08:21] LABS: Albumin Globulin Ratio 0.9 (0.9-2); Bilirubin,Total 0.6 mg/dl (0.2-1); Globulin 3.5 gm/dl (2.5-4.0); Total Protein 6.5 gm/dl (6.4-8.2)
[2020-01-28] MEDS: levETIRAcetam 750 MG in 0.9 % SODIUM CHLORIDE 100 ML IV SCH ×2 (08:36→21:53)
[2020-01-28] MEDS: THIAMINE HCL 100 MG in SYRINGE 9 ML IV SCH (08:36)
[2020-01-28] MEDS: METOPROLOL TARTRATE 25 MG TAB PO SCH (08:37)
[2020-01-28] MEDS: ASPIRIN 81 MG ECTAB PO SCH (08:37)
[2020-01-28] MEDS: SACCHAROMYCES BOULARDII 250 MG CAP PO SCH (08:37)
[2020-01-28] MEDS: DOCUSATE SODIUM 100 MG CAP PO SCH (08:37)
[2020-01-28] MEDS: ATORVASTATIN 10 MG TAB PO SCH (08:37)
[2020-01-28] MEDS: lamoTRIgine 25 MG TAB PO SCH ×2 (08:37→21:48)
[2020-01-28] MEDS: FOLIC ACID 1 MG in SYRINGE 9.8 ML IV SCH (08:37)
[2020-01-28] MEDS: MIRABEGRON ER 25 MG TAB PO SCH (08:38)
[2020-01-28] MEDS: risperiDONE 0.5 MG TABLET PO SCH ×2 (08:38→21:48)
[2020-01-28] MEDS ORDERED: FOLIC ACID 400 MCG TAB PO SCH (09:00)
[2020-01-28] MEDS ORDERED: THIAMINE HCL 50 MG TABLET PO SCH (09:00)
[2020-01-28] MEDS ORDERED: CYANOCOBALAMIN (VITAMIN B-12) 2,500 MCG TAB.SUBL SL SCH (09:00)
--- NOTE | 2020-01-28 09:46 | Electrocardiogram Report ---
Test Reason : Blood Pressure : / mmHG Vent. Rate : 070 BPM Atrial Rate : 070 BPM P-R Int : 166 ms QRS Dur : 148 ms QT Int : 444 ms P-R-T Axes : 022 -56 077 degrees QTc Int : 479 ms Normal sinus rhythm Left axis deviation Left bundle branch block Abnormal ECG When compared with ECG of 06-DEC-2019 14:23, Left bundle branch block has replaced Right bundle branch block Minimal criteria for Septal infarct are no longer Present Confirmed by Vimal Canales ([id number]) on 01/28/2020 9:46:32 AM Referred By: REFERRED SELF Confirmed By:Vimal Canales
--- NOTE | 2020-01-28 12:59 | Hospitalist Progress Note ---
Date of Service January 28, 2020 Assessment & Plan (1) AMS (altered mental status): Per daughter, this was an acute change during breakfast with concern for right-sided facial droop and right-sided weakness. Did notice any twitching, tongue biting, or other seizure-like activity. - Ddx includes CVA, seizure, infectious encephalopathy. - MRI brain - EEG - Treat empirically for UTI given her recurrent infections (2) Catheter-associated urinary tract infection: UA collected, turbid, positive esterase and nitrate, >30 WBC, 2+ bacteria, follow cultures for sensitivities, last catheter change was 1 week ago. Has on the health home care nurses x14 hours/day. - Follows with Dr. Isaac, infectious disease as outpatient; she is willing to speak with us if needed. - Consulted urology for possible removal of catheter -> Appreciate recs - Continue Zosyn (3) Seizure disorder: History of such, follows with Dr. Quiñones as an outpatient. - Continue Lamictal and Keppra - Check levels (4) Anemia: Hemoglobin 11.7, appears to be at baseline. - Continue ferrous sulfate (5) Hypertension: BP is 170/90 today. - Antihypertensives include metoprolol tartrate 25 mg daily; will increase if needed given the odd regimen. (6) Hyperlipidemia: - Continue statin therapy (7) CAD (coronary artery disease): No ability to report chest pain. Troponin negative. - Continue ASA 81 mg daily, atorvastatin 10 mg, metoprolol tartrate (8) Chronic diastolic (congestive) heart failure: Last echo completed on 11/15/2019 showing a preserved EF of 55 to 60%, mild LVH, basal septum thickened and angulated consistent with sigmoid septum, apical wall motion abnormality but likely due to pacemaker insertion, no regional wall motion abnormalities, bioprosthetic aortic valve mild mitral regurg. - Continue medications as above - Appears euvolemic at this time. (9) Chronic kidney disease, stage 3a: Baseline Cr ~1.0, eGFR 45-50. - Creatinine is 1.0 today. - Monitor (10) S/P aortic valve replacement with porcine valve: Noted (11) Aortic stenosis: - Noted (12) RIOS (generalized anxiety disorder): Son reports patient with severe anxiety and dementia requires one-to-one bedside sitter, currently asleep. - Continue Risperdal 0.5 mg BID, Lamictal (13) Malnourished: ENT scheduled to see her as an outpatient for swallow dysfunction- appt scheduled on . - Continue boost supplementation with meals once allowed diet - RIVETING MACHINE OPERATOR AUTOMATIC consulted; presently not able to participate. (14) DVT prophylaxis: Heparin 60380 units Q12h CODE: DNR/DNI -> Confirmed with daughter on 01/27 given her GCS is 6. She does NOT want intubation. Admission and Anticipated Discharge Date Admission Date: January 27, 2020 Subjective Not waking up at all. Review of Systems Review of Systems: Unobtainable due to cognitive status and Unobtainable due to reduced consciousness Physical Exam Constitutional: + acute distress, + frail appearing and + lethargic Eyes: no conjunctival abnormality ENMT: external ear and nose normal, oropharynx normal Neck: trachea midline, no thyromegaly normal visual inspection Respiratory: normal respiratory effort, lungs clear to auscultation no respiratory distress Cardiovascular: RRR, no murmur, no edema Gastrointestinal (Abdomen): Inspection/Auscultation: abdomen normal to inspection and normal bowel sounds; abdomen not distended Percussion/Palpation: abdomen soft; abdomen nontender, no guarding and abdomen not rigid Musculoskeletal: no cyanosis or clubbing, extremities motor strength 5/5 Skin: no rashes, warm and dry Neurologic: moves all extremities; + not awake Motor/Sensory: + fasciculations Psychiatric: Orientation: cooperative; + not alert and + not oriented to person Results & Data Results & Data ([facility]) Vital Signs (Past 12 Hours) Vital Signs Temp Pulse Pulse Resp BP Pulse Ox 01/28/20 11:14 36.6 C 62 20 170/89 H 98 01/28/20 09:29 66 01/28/20 07:50 66 01/28/20 07:29 36.8 C 67 20 143/74 H 97 01/28/20 04:25 36.6 C 72 20 135/76 96 PG Care Time/CCT Total # of Minutes Spent Total Time Spent with Patient: Total time spent is greater than 50% in coordination of care (as documented) at patient's floor/unit and/or counseling patient: Coding Level of Care Code 23200 Subseq Hosp Care Lvl 3 Diagnoses AMS (altered mental status) R41.82 Altered mental status type: unspecified Catheter-associated urinary tract infection T83.511A; N39.0 Seizure disorder G40.909 Anemia D64.9 Hypertension I10 Hyperlipidemia E78.2 Hyperlipidemia type: mixed hyperlipidemia CAD (coronary artery disease) I25.10 Chronic diastolic (congestive) heart failure I50.32 Chronic kidney disease, stage 3a N18.3 S/P aortic valve replacement with porcine valve Z95.3 Aortic stenosis I35.0 Cardiac valve disease etiology: etiology unspecified RIOS (generalized anxiety disorder) F41.1 Malnourished E46 DVT prophylaxis Z29.9 (1) AMS (altered mental status) Altered mental status type: unspecified Qualified Code(s): R41.82 - Altered mental status, unspecified (2) Hyperlipidemia Hyperlipidemia type: mixed hyperlipidemia Qualified Code(s): E78.2 - Mixed hyperlipidemia (3) Aortic stenosis Cardiac valve disease etiology: etiology unspecified Qualified Code(s): I35.0 - Nonrheumatic aortic (valve) stenosis
[2020-01-28] MEDS ORDERED: LORazepam 0.25 MG/0.5 ML VIAL IV STA (15:52)
[2020-01-28] MEDS: HEPARIN SOD 5,000 UNIT/0.5 ML VIAL SQ SCH (21:48)
[2020-01-29] MEDS: PIPERACILLIN/TAZOBACTAM 3.375 GM in DEXTROSE 5% 100 ML IV SCH ×3 (01:58→18:51)
[2020-01-29 07:04] LABS: Hematocrit (blood only) 33.8 % (37-47); Mean Corpuscular Hemoglobin 29.6 pg (25-34); Mean Corpuscular Hgb Conc 32.5 g/dL (32-36); Mean Corpuscular Volume 91.1 fL (80-100); Mean Platelet Volume 10.8 fL (7.4-10.4); Platelet Count 104 K/uL (130-400); RDW Coefficient of Variation 13.5 % (11.5-14.5); RDW Standard Deviation 44.7 fL (36.4-46.3); Red Blood Count 3.71 M/uL (4.2-5.4); White Blood Count 7.57 K/uL (4.8-10.8)
[2020-01-29 07:41] LABS: Albumin Level 3.1 gm/dl (3.4-5.0); BUN Creatinine Ratio 29.5 (10-20); Calcium 9.2 mg/dl (8.5-10.1); Est GFR (African American) 60.3; Est GFR (Non-African American) 52.1; Potassium 3.9 mmol/L (3.5-5.1)
[2020-01-29 07:43] LABS: Albumin Globulin Ratio 0.9 (0.9-2); Bilirubin,Total 0.7 mg/dl (0.2-1); Globulin 3.4 gm/dl (2.5-4.0); Total Protein 6.5 gm/dl (6.4-8.2)
[2020-01-29] MEDS: FOLIC ACID 1 MG in SYRINGE 9.8 ML IV SCH (08:50)
[2020-01-29] MEDS: levETIRAcetam 750 MG in 0.9 % SODIUM CHLORIDE 100 ML IV SCH ×2 (08:50→21:53)
[2020-01-29] MEDS: THIAMINE HCL 100 MG in SYRINGE 9 ML IV SCH (08:51)
[2020-01-29] MEDS: DOCUSATE SODIUM 100 MG CAP PO SCH (10:50)
[2020-01-29] MEDS: SACCHAROMYCES BOULARDII 250 MG CAP PO SCH (10:50)
[2020-01-29] MEDS: ASPIRIN 81 MG ECTAB PO SCH (10:50)
[2020-01-29] MEDS: lamoTRIgine 25 MG TAB PO SCH ×2 (10:51→21:57)
[2020-01-29] MEDS: risperiDONE 0.5 MG TABLET PO SCH ×2 (10:51→21:57)
[2020-01-29] MEDS: METOPROLOL TARTRATE 25 MG TAB PO SCH (10:51)
[2020-01-29] MEDS: ATORVASTATIN 10 MG TAB PO SCH (10:51)
[2020-01-29] MEDS ORDERED: HALOPERIDOL ORAL SOLN 2 MG/ML PO PRN (10:51)
[2020-01-29] MEDS: MIRABEGRON ER 25 MG TAB PO SCH (10:51)
[2020-01-29] MEDS: HEPARIN SOD 5,000 UNIT/0.5 ML VIAL SQ SCH ×2 (10:58→21:53)
--- NOTE | 2020-01-29 17:23 | Hospitalist Progress Note ---
Date of Service January 29, 2020 Assessment & Plan (1) Fungemia: Blood culture from 01/26 growing Yeast in 1/4 bottles. - Repeat fungal culture obtained on 01/28 before any antifungal given. - Start caspofungin; will monitor repeat test to see if anything grows. If not, possible contaminant. (2) AMS (altered mental status): Metabolic encephalopathy. Per daughter, this was an acute change during breakfast with concern for right-sided facial droop and right-sided weakness. Did notice any twitching, tongue biting, or other seizure-like activity. - Ddx includes CVA, seizure, infectious encephalopathy. - MRI brain was attempted x 2, but she was unable to tolerate it even with Ativan for one attempt and Haldol for the other. Given her tenuous status, do not think heavier sedation will benefit her. - EEG pending - Treat empirically for UTI given her recurrent infections -> Urine cx from 01/22 growing Enterobacter, resistant only to nitrofurantoin. (3) Catheter-associated urinary tract infection: UA collected, turbid, positive esterase and nitrate, >30 WBC, 2+ bacteria, follow cultures for sensitivities, last catheter change was 1 week ago. Has on the health home care nurses x14 hours/day. - Follows with Dr. Isaac, infectious disease as outpatient; she is willing to speak with us if needed. - Consulted urology for possible removal of catheter -> Appreciate recs - Continue Zosyn (4) Seizure disorder: History of such, follows with Dr. Quiñones as an outpatient. - Continue Lamictal and Keppra - All levels are send-out, so will not get at this time given improvement in mental status. (5) Anemia: Hemoglobin 11.7, appears to be at baseline. - Continue ferrous sulfate (6) Hypertension: BP is 145/65 today. - Antihypertensives include metoprolol tartrate 25 mg daily; will increase if needed given the odd regimen. (7) Hyperlipidemia: - Continue statin therapy - Would need to hold if we did fluconazole (8) CAD (coronary artery disease): No reported chest pain. Troponin negative. - Continue ASA 81 mg daily, atorvastatin 10 mg, metoprolol tartrate (9) Chronic diastolic (congestive) heart failure: Last echo completed on 11/15/2019 showing a preserved EF of 55 to 60%, mild LVH, basal septum thickened and angulated consistent with sigmoid septum, apical wall motion abnormality but likely due to pacemaker insertion, no regional wall motion abnormalities, bioprosthetic aortic valve mild mitral regurg. - Continue medications as above - Appears euvolemic at this time. (10) Chronic kidney disease, stage 3a: Baseline Cr ~1.0, eGFR 45-50. - Creatinine is 1.0 today. - Monitor (11) S/P aortic valve replacement with porcine valve: Noted (12) Aortic stenosis: - Noted (13) RIOS (generalized anxiety disorder): Son reports patient with severe anxiety and dementia requires one-to-one bedside sitter, currently asleep. - Continue Risperdal 0.5 mg BID, Lamictal (14) Malnourished: ENT scheduled to see her as an outpatient for swallow dysfunction- appt scheduled on . - Continue boost supplementation with meals once allowed diet - STUFFING MACHINE OPERATOR consulted - On pureed diet, but otherwise good. (15) DVT prophylaxis: Heparin 02143 units Q12h CODE: DNR/DNI -> Confirmed with daughter on 01/27 given her GCS was 6. She does NOT want intubation. Admission and Anticipated Discharge Date Admission Date: January 27, 2020 Subjective On my interview, she is still obtunded. Review of Systems Review of Systems: Unobtainable due to cognitive status Physical Exam Constitutional: + acute distress, + frail appearing and + lethargic Eyes: no conjunctival abnormality ENMT: external ear and nose normal, oropharynx normal Neck: trachea midline, no thyromegaly normal visual inspection Respiratory: normal respiratory effort, lungs clear to auscultation no respiratory distress Cardiovascular: RRR, no murmur, no edema Gastrointestinal (Abdomen): Inspection/Auscultation: abdomen normal to inspection and normal bowel sounds; abdomen not distended Percussion/Palpation: abdomen soft; abdomen nontender, no guarding and abdomen not rigid Musculoskeletal: no cyanosis or clubbing, extremities motor strength 5/5 Skin: no rashes, warm and dry Neurologic: moves all extremities; + not awake Motor/Sensory: + fasciculations Psychiatric: Orientation: cooperative; + not alert and + not oriented to person Results & Data Results & Data ([facility]) Vital Signs (Past 12 Hours) Vital Signs Temp Pulse Resp BP Pulse Ox 01/29/20 14:41 36.4 C L 101 H 16 146/64 H 96 01/29/20 09:32 36.4 C L 93 H 16 146/80 H 96 PG Care Time/CCT Total # of Minutes Spent Total Time Spent with Patient: Total time spent is greater than 50% in coordination of care (as documented) at patient's floor/unit and/or counseling patient: Coding Level of Care Code 01100 Subseq Hosp Care Lvl 3 Diagnoses Fungemia B49 AMS (altered mental status) R41.82 Altered mental status type: unspecified Catheter-associated urinary tract infection T83.511A; N39.0 Seizure disorder G40.909 Anemia D64.9 Hypertension I10 Hyperlipidemia E78.2 Hyperlipidemia type: mixed hyperlipidemia CAD (coronary artery disease) I25.10 Chronic diastolic (congestive) heart failure I50.32 Chronic kidney disease, stage 3a N18.3 S/P aortic valve replacement with porcine valve Z95.3 Aortic stenosis I35.0 Cardiac valve disease etiology: etiology unspecified RIOS (generalized anxiety disorder) F41.1 Malnourished E46 DVT prophylaxis Z29.9 (1) Aortic stenosis Cardiac valve disease etiology: etiology unspecified Qualified Code(s): I35.0 - Nonrheumatic aortic (valve) stenosis (2) Hyperlipidemia Hyperlipidemia type: mixed hyperlipidemia Qualified Code(s): E78.2 - Mixed hyperlipidemia (3) AMS (altered mental status) Altered mental status type: unspecified Qualified Code(s): R41.82 - Altered mental status, unspecified
--- NOTE | 2020-01-29 17:43 | Electroencephalogram ---
EEG Procedure Note Date of Service January 29, 2020 Start / End Times Start Time: 5:26am End Time: 5:47am Referring Physician Jerome Viveros History AMS Home Medication List Home Medications Medication Instructions Recorded Confirmed Type cholecalciferol (vitamin D3) 2,000 units PO HS 04/04/18 01/27/20 History [Vitamin D3] thiamine HCl (vitamin B1) [Vitamin 250 mg PO QAM 10/21/18 01/27/20 History B-1] atorvastatin [Lipitor] 10 mg PO QAM 06/29/19 01/27/20 History cyanocobalamin (vitamin B-12) 5,000 mcg PO QAM 07/20/19 01/27/20 History [Vitamin B-12] folic acid 0.8 mg PO QAM 07/20/19 01/27/20 History diclofenac sodium 1 % topical gel 2 gm TOP QID PRN #100 gm 08/07/19 01/27/20 Rx polyethylene glycol 3350 [Miralax] 17 g PO BID PRN 09/19/19 01/27/20 History Saccharomyces boulardii 250 mg PO QAM 10/04/19 01/27/20 History docusate sodium 100 mg PO QAM 10/04/19 01/27/20 History nystatin 1 applic TOPICAL TID PRN 10/04/19 01/27/20 History ferrous sulfate 325 mg PO BIDM 30 Days #60 tab 10/09/19 01/27/20 Rx acetaminophen [Tylenol Extra 500 mg PO BID 11/13/19 01/27/20 History Strength] aspirin 81 mg PO QAM 11/13/19 01/27/20 History lamotrigine 25 mg tablet 25 mg PO BID #60 tab 12/13/19 01/27/20 Rx levetiracetam 750 mg tablet 750 mg PO BID #60 tab 12/14/19 01/27/20 Rx mirabegron 50 mg tablet,extended 50 mg PO DAILY #90 tab 01/18/20 01/27/20 Rx release 24 hr celecoxib 100 mg PO DAILY 01/27/20 01/27/20 History metoprolol tartrate 25 mg PO DAILY 01/27/20 01/27/20 History risperidone 0.5 mg PO BID 01/27/20 01/27/20 History Inpatient Medication List Aspirin (Aspirin 81 Mg Ectab) 81 mg PO QAM [facility] Stop: 02/27/20 08:59 Last Admin: 01/29/20 10:50 Dose: Not Given Documented by: [id number] Admin: 01/28/20 08:37 Dose: Not Given Documented by: [id number] Atorvastatin Calcium (Atorvastatin 10 Mg Tab) [address] [facility] Stop: 02/27/20 08:59 Last Admin: 01/29/20 10:51 Dose: Not Given Documented by: [id number] Admin: 01/28/20 08:37 Dose: Not Given Documented by: [id number] Docusate Sodium (Docusate Sodium 100 Mg Cap) [address] [facility] Stop: 02/27/20 08:59 Last Admin: 01/29/20 10:50 Dose: Not Given Documented by: [id number] Admin: 01/28/20 08:37 Dose: Not Given Documented by: [id number] Haloperidol Lactate (Haloperidol Oral Soln 2 Mg/Ml) 0.5 mg PO ONCE PRN PRN Reason: Agitation Stop: 02/28/20 10:50 Last Admin: 01/29/20 11:06 Dose: 0.5 mg Documented by: [id number] Heparin Sodium (Porcine) (Heparin Sod 5,000 Unit/0.5 Ml Vial) 5,000 units SQ Q12 [facility] Stop: 02/27/20 20:59 Last Admin: 01/29/20 10:58 Dose: 5,000 units Documented by: [id number] Cosigned by: [id number] Admin: 01/28/20 21:48 Dose: 5,000 units Documented by: [id number] Cosigned by: [id number] Piperacillin Sod/Tazobactam (Sod 3.375 gm/ Dextrose) 115 mls @ 28.75 mls/hr IV Q8H [facility]; Protocol Stop: 02/06/20 17:59 Last Infusion: 01/29/20 15:21 Dose: 0 mls/hr Documented by: [id number] Admin: 01/29/20 10:59 Dose: 28 mls/hr Documented by: [id number] Infusion: 01/29/20 06:01 Dose: 0 mls/hr Documented by: [id number] Admin: 01/29/20 01:58 Dose: 28.8 mls/hr Documented by: [id number] Infusion: 01/28/20 21:54 Dose: 0 mls/hr Documented by: [id number] Admin: 01/28/20 17:54 Dose: 28.8 mls/hr Documented by: [id number] Infusion: 01/28/20 16:04 Dose: 0 mls/hr Documented by: [id number] Admin: 01/28/20 10:52 Dose: 28.8 mls/hr Documented by: [id number] Infusion: 01/28/20 06:49 Dose: 0 mls/hr Documented by: [id number] Admin: 01/28/20 02:28 Dose: 28.8 mls/hr Documented by: [id number] Infusion: 01/28/20 00:34 Dose: 0 mls/hr Documented by: [id number] Admin: 01/27/20 20:03 Dose: 28.8 mls/hr Documented by: [id number] Levetiracetam 750 mg/ Sodium (Chloride) 107.5 mls @ 440 mls/hr IV Q12H [facility] Stop: 02/26/20 20:59 Last Infusion: 01/29/20 09:05 Dose: 0 mls/hr Documented by: [id number] Admin: 01/29/20 08:50 Dose: 440 mls/hr Documented by: [id number] Infusion: 01/28/20 22:12 Dose: 0 mls/hr Documented by: [id number] Admin: 01/28/20 21:53 Dose: 440 mls/hr Documented by: [id number] Infusion: 01/28/20 08:51 Dose: 0 mls/hr Documented by: [id number] Admin: 01/28/20 08:36 Dose: 440 mls/hr Documented by: [id number] Infusion: 01/27/20 22:18 Dose: 0 mls/hr Documented by: [id number] Admin: 01/27/20 21:54 Dose: 440 mls/hr Documented by: [id number] Thiamine HCl 100 mg/ Syringe 10 mls @ 2 mls/min IV QAM [facility] Stop: 02/27/20 08:59 Last Admin: 01/29/20 08:51 Dose: 2 mls/min Documented by: [id number] Admin: 01/28/20 08:36 Dose: 2 mls/min Documented by: [id number] Folic Acid 1 mg/ Syringe 10 mls @ 5 mls/min IV QAM [facility] Stop: 02/27/20 08:59 Last Admin: 01/29/20 08:50 Dose: 5 mls/min Documented by: [id number] Admin: 01/28/20 08:37 Dose: 5 mls/min Documented by: [id number] Lamotrigine (Lamotrigine 25 Mg Tab) 25 mg PO BID [facility] Stop: 02/26/20 20:59 Last Admin: 01/29/20 10:51 Dose: Not Given Documented by: [id number] Admin: 01/28/20 21:48 Dose: Not Given Documented by: [id number] Admin: 01/28/20 08:37 Dose: Not Given Documented by: [id number] Admin: 01/27/20 21:54 Dose: Not Given Documented by: [id number] Metoprolol Tartrate (Metoprolol Tartrate 25 Mg Tab) 25 mg PO DAILY [facility] Stop: 02/27/20 08:59 Last Admin: 01/29/20 10:51 Dose: Not Given Documented by: [id number] Admin: 01/28/20 08:37 Dose: Not Given Documented by: [id number] Mirabegron (Mirabegron Er 25 Mg Tab) 50 mg PO DAILY [facility] Stop: 02/27/20 08:59 Last Admin: 01/29/20 10:51 Dose: Not Given Documented by: [id number] Admin: 01/28/20 08:38 Dose: Not Given Documented by: [id number] Risperidone (Risperidone 0.5 Mg Tablet) 0.5 mg PO BID [facility] Stop: 02/26/20 20:59 Last Admin: 01/29/20 10:51 Dose: Not Given Documented by: [id number] Admin: 01/28/20 21:48 Dose: Not Given Documented by: [id number] Admin: 01/28/20 08:38 Dose: Not Given Documented by: [id number] Admin: 01/27/20 21:56 Dose: Not Given Documented by: [id number] Saccharomyces Boulardii (Saccharomyces Boulardii 250 Mg Cap) 250 mg PO QAM [facility] Stop: 02/27/20 08:59 Last Admin: 01/29/20 10:50 Dose: Not Given Documented by: [id number] Admin: 01/28/20 08:37 Dose: Not Given Documented by: [id number] Discontinued Medications Acetaminophen (Acetaminophen 500 Mg Tab) 500 mg PO BID [facility] Stop: 02/26/20 20:59 Last Admin: 01/27/20 20:00 Dose: Not Given Documented by: [id number] Ferrous Sulfate (Ferrous Sulfate 325 Mg Tab) 325 mg PO BIDM [facility] Stop: 02/26/20 18:29 Last Admin: 01/27/20 20:00 Dose: Not Given Documented by: [id number] Sodium Chloride (Nss 1000ml) 1,000 mls @ 999 mls/hr IV .Q1H1M [facility] Stop: 01/27/20 11:00 Last Infusion: 01/27/20 11:43 Dose: 0 mls/hr Documented by: [id number] Admin: 01/27/20 10:42 Dose: 999 mls/hr Documented by: [id number] Piperacillin Sod/Tazobactam Sod (Zosyn) 4.5 gm in 120 mls @ 240 mls/hr IV NOW ONE Stop: 01/27/20 10:44 Last Infusion: 01/27/20 11:15 Dose: 0 mls/hr Documented by: [id number] Admin: 01/27/20 10:45 Dose: 240 mls/hr Documented by: [id number] Lorazepam (Ativan) 0.25 mg in 0.5 mls @ 0.5 mls/min IV NOW STA Stop: 01/28/20 15:53 Last Admin: 01/28/20 16:46 Dose: 0.5 mls/min Documented by: [id number] Vitamin D (Cholecalciferol 1,000 Units 25 Mcg Tab) 2,000 units PO HS [facility] Stop: 02/26/20 20:59 Last Admin: 01/27/20 20:00 Dose: Not Given Documented by: [id number] Description This is a 21 electrode EEG with a single channel dedicated to limited EKG. The electrodes were placed in accordance with the International 10-20 system. History: h/o epilepsy, prior strokes Rx: keppra 750mg bid, lamictal 25mg bid, risperidone Start/Stop: 5:26am/5:47am Attending reading: Berta Al EEG Description: EEG background: Background was low voltage with predominantly delta/theta slowing observed, consistent with early stages of sleep. No well formed posterior dominant rhythm was observed. The EEG is continuous. There is variability and reactivity present. Activation and reactivity: Photic stimulation performed without any abnormalities noted. No photic driving observed. Hyperventilation was not performed as patient was asleep. Sleep: Patient was asleep for the majority of the record. Stages I and II of sleep were recorded with normal vertex waves and sleep spindles noted. Epileptiform discharges: No epileptiform discharges were observed. Rhythmic and periodic patterns: None Seizures: None Impression: This was a normal asleep EEG. No seizures or epileptiform discharges were seen. Clinical correlation required. [facility] EEG Procedure Codes Indication for Procedure (1) Altered mental status: (2) Urinary tract infection due to extended-spectrum beta lactamase (ESBL) producing Escherichia coli: (3) H/O: stroke with residual effects: (4) Seizure disorder: Neurology Neurology: [id number] EEG include record awake & sleepy
[2020-01-29] MEDS ORDERED: CASPOFUNGIN 70 MG in SODIUM CHLORIDE 0.9% 250 ML IV ONE (17:45)
[2020-01-30] MEDS: PIPERACILLIN/TAZOBACTAM 3.375 GM in DEXTROSE 5% 100 ML IV SCH ×2 (02:01→09:05)
[2020-01-30 07:15] LABS: Hematocrit (blood only) 31.8 % (37-47); Hemoglobin 10.5 g/dL (12.0-16.0); Mean Corpuscular Hemoglobin 29.5 pg (25-34); Mean Corpuscular Volume 89.3 fL (80-100); Mean Platelet Volume 10.7 fL (7.4-10.4); Platelet Count 114 K/uL (130-400); RDW Coefficient of Variation 13.1 % (11.5-14.5); RDW Standard Deviation 42.5 fL (36.4-46.3); Red Blood Count 3.56 M/uL (4.2-5.4); White Blood Count 7.01 K/uL (4.8-10.8)
[2020-01-30 07:47] LABS: Albumin Level 2.9 gm/dl (3.4-5.0); Calcium 8.7 mg/dl (8.5-10.1); Creatinine Clr Calc Pharmacy 36.4 ml/min; Est GFR (African American) 58.9; Est GFR (Non-African American) 50.8; Magnesium 1.9 mg/dl (1.8-2.4); Potassium 3.7 mmol/L (3.5-5.1)
[2020-01-30 07:49] LABS: Albumin Globulin Ratio 0.9 (0.9-2); Bilirubin,Total 0.4 mg/dl (0.2-1); Globulin 3.4 gm/dl (2.5-4.0); Total Protein 6.3 gm/dl (6.4-8.2)
[2020-01-30] MEDS: THIAMINE HCL 100 MG in SYRINGE 9 ML IV SCH (08:33)
[2020-01-30] MEDS: levETIRAcetam 750 MG in 0.9 % SODIUM CHLORIDE 100 ML IV SCH (08:33)
[2020-01-30] MEDS: FOLIC ACID 1 MG in SYRINGE 9.8 ML IV SCH (08:33)
[2020-01-30] MEDS: SACCHAROMYCES BOULARDII 250 MG CAP PO SCH (08:36)
[2020-01-30] MEDS: MIRABEGRON ER 25 MG TAB PO SCH (08:36)
[2020-01-30] MEDS: HEPARIN SOD 5,000 UNIT/0.5 ML VIAL SQ SCH (08:37)
[2020-01-30] MEDS: METOPROLOL TARTRATE 25 MG TAB PO SCH (08:38)
[2020-01-30] MEDS: lamoTRIgine 25 MG TAB PO SCH (08:52)
[2020-01-30] MEDS: ATORVASTATIN 10 MG TAB PO SCH (08:53)
[2020-01-30] MEDS: risperiDONE 0.5 MG TABLET PO SCH (08:54)
[2020-01-30] MEDS ORDERED: ASPIRIN 81 MG CHEW PO SCH (09:00)
[2020-01-30] MEDS ORDERED: DOCUSATE SODIUM SYRUP 100 MG/10 ML UDC PO SCH (09:00)
[2020-01-30] MEDS ORDERED: CASPOFUNGIN 50 MG in SODIUM CHLORIDE 0.9% 250 ML IV SCH (17:00)
--- NOTE | 2020-01-30 18:13 | Discharge Summary ---
Date of Service January 30, 2020 Admission HPI Per Admitting Provider This is an 84 yo F with PMHx of severe dementia, history of catheter associated UTI growing out Enterobacter and ESBL E. coli requiring hospitalizations, seizure disorder, pressure ulceration, CAD, s/p aortic valve replacement with porcine valve, CKD stage III, anxiety. Patient presents today with worsening altered mental status from home. The patient's son, Dixon is present at bedside and supports the history as she is asleep and not easily awakened due to AMS. He reports that 3 months ago she was admitted for UTI and receiving an IV antibiotic, and then developed seizure, ended up being transferred to [facility] and treated there. At that point time she was intubated x1 day and then successfully extubated and she was able to return home again. Son reports having difficulty determining the patient's CODE STATUS, he reports having hospice being pushed at him over the last few months by multiple providers and struggles with this. He reports that if she is dying from natural causes then she is a DNR/DNI. If she were to seize in the interim then he would want her to be ventilated as she was able to come off ventilator before. After that hospital stay at [place], it was noted by home health nursing that she had swelling in the left lower extremity. She was evaluated here at [facility] and found to have a left hip fracture which was fixed the day after coming home from [facility]. After that she subsequently developed multiple pressure ulcerations including sacral decubitus region. Due to her incontinence a chronic Sears catheter was placed to help wounds heal. Since then she has had multiple recurrent UTIs which have been catheter associated growing out E. coli ESBL and enterococcus. She started seeing Dr. Isaac, with infectious disease out of [facility]. The last antibiotic taken was fosfomycin 3 g on 12/19/2019 and 12/22/2019. She had been following with Dr. Viveros with urology here at [facility], however after his departure she has not been back to see a urologist. Catheter was last changed approximately 1 week ago. This morning the patient had difficulty walking, seemed altered, had little desire to eat and was not able to feed herself which she normally can do at baseline. He was concerned that she had some slight facial drooping on the left, however this is completely resolved. She is found to have a grossly infected urine in the ER. CT of the head is negative for any acute CVA. 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 Of note the patient has a ENT appointment scheduled for Wednesday as she has had difficulty with food getting stuck/swallowing issues since being intubated. Son is hopeful that she can have scheduled laryngoscope done on Wednesday as already scheduled. Principal Diagnosis UTI Discharge Exam Constitutional + acute distress, + frail appearing and + lethargic Eyes no conjunctival abnormality ENMT external ear and nose normal, oropharynx normal Neck trachea midline, no thyromegaly normal visual inspection Respiratory normal respiratory effort, lungs clear to auscultation no respiratory distress Cardiovascular RRR, no murmur, no edema Gastrointestinal (Abdomen) Inspection/Auscultation: abdomen normal to inspection and normal bowel sounds; abdomen not distended Percussion/Palpation: abdomen soft; abdomen nontender, no guarding and abdomen not rigid Musculoskeletal no cyanosis or clubbing, extremities motor strength 5/5 Skin no rashes, warm and dry Neurologic moves all extremities; + not awake Motor/Sensory: + fasciculations Psychiatric Orientation: cooperative; + not alert and + not oriented to person Discharge Data Allergies Allergy/AdvReac Type Severity Reaction Status Date / Time ertapenem AdvReac Severe seizures Unverified 01/27/20 10:08 enalapril AdvReac Intermediate Cough Verified 01/27/20 10:08 escitalopram AdvReac Intermediate Hallucinati Verified 01/27/20 10:08 ons Consultations 01/27/20 12:01 ED Decision to Admit Stat 01/27/20 17:43 Consult Case Management - Discharge Planning Routine Consult Urology Routine Ordered Studies 01/27/20 10:01 CT head/brain wo con Stat Hospital Course (1) Catheter-associated urinary tract infection: UA collected, turbid, positive esterase and nitrate, >30 WBC, 2+ bacteria, follow cultures for sensitivities, last catheter change was 1 week ago. Has on the health home care nurses x14 hours/day. - Follows with Dr. Isaac, infectious disease as outpatient; she is willing to speak with us if needed. - Consulted urology for possible removal of catheter -> Removed Sears on 01/29 as her sacral ulcer had healed! - Continue Zosyn -> Continue Omnicef x 5 more days. Followed her urine culture from 01/22 as the 01/26 was contaminated. (2) Fungemia: Blood culture from 01/26 growing Yeast in 1/4 bottles. - Repeat fungal culture obtained on 01/28 before any antifungal given. - Was on caspofungin for [address] Nguyen. We did not feel it was a real fungemia given she has no indwelling line (other than Sears) and had no fever or white count. Stopped anti-fungal on discharge. Will follow fungal culture from to be sure it stays negative. (3) AMS (altered mental status): Metabolic encephalopathy. Per daughter, this was an acute change during breakfast with concern for right-sided facial droop and right-sided weakness. Did notice any twitching, tongue biting, or other seizure-like activity. - Ddx includes CVA, seizure, infectious encephalopathy. - MRI brain was attempted x 2, but she was unable to tolerate it even with Ativan for one attempt and Haldol for the other. Given her tenuous status, do not think heavier sedation will benefit her. - EEG was normal. - Treat empirically for UTI given her recurrent infections -> Improved with treatment of UTI. (4) Seizure disorder: History of such, follows with Dr. Quiñones as an outpatient. - Continue Lamictal and Keppra - All levels are send-out, so will not get at this time given improvement in mental status. EEG normal this admission. (5) Anemia: Hemoglobin 11.7, appears to be at baseline. - Continue ferrous sulfate (6) Hypertension: BP is 145/65 today. - Antihypertensives include metoprolol tartrate 25 mg daily; will increase if needed given the odd regimen. (7) Hyperlipidemia: - Continue statin therapy - Would need to hold if we did fluconazole (8) CAD (coronary artery disease): No reported chest pain. Troponin negative. - Continue ASA 81 mg daily, atorvastatin 10 mg, metoprolol tartrate (9) Chronic diastolic (congestive) heart failure: Last echo completed on 11/15/2019 showing a preserved EF of 55 to 60%, mild LVH, basal septum thickened and angulated consistent with sigmoid septum, apical wall motion abnormality but likely due to pacemaker insertion, no regional wall motion abnormalities, bioprosthetic aortic valve mild mitral reg urg. - Continue medications as above - Appears euvolemic at this time. (10) Chronic kidney disease, stage 3a: Baseline Cr ~1.0, eGFR 45-50. - Creatinine is 1.0 today. - Monitor (11) S/P aortic valve replacement with porcine valve: Noted (12) Aortic stenosis: - Noted (13) RIOS (generalized anxiety disorder): Son reports patient with severe anxiety and dementia requires one-to-one bedside sitter, currently asleep. - Continue Risperdal 0.5 mg BID, Lamictal (14) Malnourished: ENT scheduled to see her as an outpatient for swallow dysfunction- appt scheduled on . - Continue boost supplementation with meals once allowed diet - [employer] consulted - On pureed diet, but otherwise good. (15) DVT prophylaxis: Heparin 79712 units Q12h CODE: DNR/DNI -> Confirmed with daughter on 01/27 given her GCS was 6. She does NOT want intubation. Total Time Total Time Spent Total Time Spent (In Minutes): 35 Discharge Plan Discharge Items Patient Disposition: Home - Home Health Services Reason For Visit: AMS,UTI Discharge Diagnosis: Urinary tract infection Activity: Resume your previous activity Non-emergency contact: Primary Care Provider and Specialist Call non-emergency contact if: your symptoms worsen and your temperature is above 101 Follow-up/Referrals: Aurora Estrada MD [Primary Care Provider] - 02/05/20 11:20 am (You have a follow up appt with with Dr Javier on WednesdayFeb 04 at 11:20am. Please arrive 15 minutes prior to your appt time. It is important that you keep this appt, if it does not fit your schedule please call [phone] to reschedule. ) Diet: Regular Diet Texture: Pureed (blended smooth) Addtl Attending Provider Instructions: Ms. Easley was admitted with a urinary tract infection which unfortunately occurs frequently. The cultures of urine show bacteria that is sensitive to oral antibiotics which is great. We will send out an additional 5 days of antibiotics on top of the IV ones received here. We also saw one blood culture that grew yeast; however, in consultation with Dr. Isaac, we feel this was a "contaminant," and she did not feel we should treat this as a true infection. We also did a CT scan of the head as well as an EEG. The CT scan did not show any bleeding or stroke. The EEG was completely normal and did not show any sign of seizure. Pending Studies at Discharge: No Stand-Alone Forms: My [facility], Smoking Cessation Medications and DC Order Prescriptions: New cefdinir 300 mg capsule 300 mg PO BID 5 Days Qty: 11 RF: 0 Continued diclofenac sodium [Voltaren] 1 % gel 2 gm TOP QID PRN (Reason: JOINT PAIN) Qty: 100 RF: 0 levetiracetam 750 mg tablet 750 mg PO BID Qty: 60 RF: 3 Myrbetriq 50 mg tablet extended release 24 hr 50 mg PO DAILY Qty: 90 RF: 0 lamotrigine [Lamictal] 25 mg tablet 25 mg PO BID Qty: 60 RF: 2 cholecalciferol (vitamin D3) [Vitamin D3] 2,000 unit Capsule 2,000 units PO HS RF: 0 thiamine HCl (vitamin B1) [Vitamin B-1] 250 mg Tablet 250 mg PO QAM RF: 0 atorvastatin [Lipitor] 10 mg tablet 10 mg PO QAM RF: 0 polyethylene glycol 3350 [Miralax] 17 gram powder in packet 17 g PO BID PRN (Reason: Constipation) RF: 0 celecoxib 100 mg capsule 100 mg PO DAILY RF: 0 risperidone 0.5 mg tablet 0.5 mg PO BID RF: 0 metoprolol tartrate 25 mg tablet 25 mg PO DAILY RF: 0 folic acid 800 mcg Tablet 0.8 mg PO QAM RF: 0 cyanocobalamin (vitamin B-12) [Vitamin B-12] 5,000 mcg Tablet, Sublingual 5,000 mcg PO QAM RF: 0 docusate sodium 100 mg Tablet 100 mg PO QAM RF: 0 Saccharomyces boulardii 250 mg Capsule 250 mg PO QAM RF: 0 nystatin 100,000 unit/gram Powder 1 applic TOPICAL TID PRN (Reason: .) RF: 0 ferrous sulfate 325 mg (65 mg iron) Tablet,Delayed Release (Dr/Ec) 325 mg PO BIDM 30 Days Qty: 60 RF: 3 acetaminophen [Tylenol Extra Strength] 500 mg Tablet 500 mg PO BID RF: 0 aspirin 81 mg Tablet,Delayed Release (Dr/Ec) 81 mg PO QAM RF: 0 Discharge Orders: Discharge Order (Routine); Ordered 01/30/20 Ordered By: Jerome Viveros Admission Data Admit Date/Time: 01/27/20 13:00 Attending Provider: Jerome Viveros Admit Provider: Mendel Irene Primary Care Provider: Aurora Estrada V. Other Providers: Aldo Lora ; Jerome Viveros Other Interventions: Discharge Summary Assessment (RN) Last Done: 01/30/20 14:20 Coding Level of Care Code D/C Day Management >30 mins Diagnoses Catheter-associated urinary tract infection T83.511A; N39.0 Fungemia B49 AMS (altered mental status) R41.82 Altered mental status type: unspecified Seizure disorder G40.909 Anemia D64.9 Hypertension I10 Hyperlipidemia E78.2 Hyperlipidemia type: mixed hyperlipidemia CAD (coronary artery disease) I25.10 Chronic diastolic (congestive) heart failure I50.32 Chronic kidney disease, stage 3a N18.3 S/P aortic valve replacement with porcine valve Z95.3 Aortic stenosis I35.0 Cardiac valve disease etiology: etiology unspecified RIOS (generalized anxiety disorder) F41.1 Malnourished E46 DVT prophylaxis Z29.9
== END 2020-01-30 18:00 | disposition home health service (06) | DRG 698 ==
LOC: ED 09:00 → 2W 13:00 → SUATTDRO 13:00 → 2W 17:00

== ENCOUNTER 2020-04-19 11:44 | Observation (INO) ==
--- NOTE | 2020-04-19 12:51 | XRay Report ---
SINGLE VIEW CHEST CLINICAL HISTORY: Change in mental status. Unresponsive. FINDINGS: An AP, portable, semierect chest radiograph is compared to study dated 01/27/2020 and correl ated with chest CT dated 09/25/2019. The examination is degraded by portable technique and patient rot ation. The patient is status post midline sternotomy and cardiac valve surgery. The cardiomediastinal silhouette is unremarkable. There are low lung volumes with bibasilar atelectasis. Chronic interstit ial thickening is similar to previous. No airspace consolidation or large pleural effusion is identif ied. No pneumothorax is seen. The skeletal structures are osteopenic. The bony thorax is grossly inta ct. IMPRESSION: Cardiomegaly with no acute cardiopulmonary abnormality. ACT 112: Negative or not required by law. Electronically signed by: Bladimir Green M.D. 04/19/2020 12:50 PM
[2020-04-19] MEDS ORDERED: SODIUM CHLORIDE 0.9% 1000ML 1,000 ML IV ONE (12:56)
--- NOTE | 2020-04-19 12:58 | Electrocardiogram Report ---
Test Reason : Blood Pressure : / mmHG Vent. Rate : 061 BPM Atrial Rate : 061 BPM P-R Int : 186 ms QRS Dur : 158 ms QT Int : 480 ms P-R-T Axes : 034 -57 046 degrees QTc Int : 483 ms Sinus rhythm with Premature atrial complexes in a pattern of bigeminy Possible Left atrial enlargement Left axis deviation Left bundle branch block Abnormal ECG When compared with ECG of 27-JAN-2020 10:13, Premature atrial complexes are now Present Confirmed by Abad Lester ([id number]) on 04/19/2020 12:58:07 PM Referred By: REFERRED SELF Confirmed By:Sha Lester
--- NOTE | 2020-04-19 13:00 | Emergency Department Note ---
Impression & Plan AMS (altered mental status), Acute confusion, Acute UTI ED Provider Note NAME: RADHA FARRELL AGE: 84 SEX: F : 1935 ARRIVES VIA: Ambulance INFORMANT: son ED PROVIDER(S): Joey Lee DO CHIEF COMPLAINT: Altered mental status/unresponsive HPI: Patient is an 84-year-old female with dementia who presents to the ER after eating, coughing and choking. Following that incident patient has been fairly unresponsive. She was brought in for further work-up by her son. He notes that she does have pretty bad dementia and the PCP wants to place her on hospice. She has a history of strokes. He notes that she just ate and then went to lay down and had some shaking of the head followed by choking gagging. She will sometimes answer yes and no. History is unobtainable secondary to mentation. Patient then was difficult to arouse until brought in by EMS. ROS: Unable to obtain review of systems secondary to mentation PAST MEDICAL HISTORY:See Below PAST SURGICAL HISTORY:See Below FAMILY HISTORY:See Below SOCIAL HISTORY:See Below HOME MEDICATIONS:See Below ALLERGIES:See Below VITALS:See Below PHYSICAL EXAMINATION: GENERAL: Sitting up in bed, cachectic, chronically ill-appearing, malnourished EYE EXAM: normal conjunctiva. PERRL and EOM's grossly intact. OROPHARYNX: no exudate, no erythema, lips, buccal mucosa, and tongue normal and mucous membranes are moist NECK: supple, no nuchal rigidity, no adenopathy, non-tender LUNGS: Mild wheezing bilaterally. Normal chest wall mechanics HEART: no murmurs, S1 normal and S2 normal ABDOMEN: abdomen soft, non-tender, normo-active bowel sounds, no masses, no rebound or guarding. UPPER EXTREMITIES: upper extremities are grossly normal. LOWER EXTREMITIES: No pitting edema. NEURO EXAM: Sitting up in bed, opens eyes to loud voice, does not follow commands, does not talk, winces in pain to bilateral upper and lower extremities. MEDICAL DECISION MAKING: Patient is a demented 84-year-old female who is confused at baseline and normally does not follow commands it presents the ER for worsening confusion and unresponsiveness. DNR/DNI. IV was established blood work was obtained. Labs show no significant leukocytosis and mild anemia. BMP with a slightly elevated chloride. LFTs troponin was unremarkable. UA with leukocytes, white cells and epithelial cells as well as yeast. Review of previous cultures shows an ESBL as well as Latasha and non-Latasha. She was given Avycaz in combination with fluconazole. Son was updated bedside. CT head as well as the chest abdomen pelvis showed no acute pathology. Triage Nursing notes reviewed. Prior medical records reviewed Vital Signs: reviewed and remarkable for no significant abnormalities Differential diagnosis: Differential diagnoses includes but is not limited to toxic, metabolic, infectious, traumatic, cardiac, neurologic, hematologic, psychiatric and inflam matory etiologies. ER treatment provided: See below Diagnostics interpreted by me: ECG: Sinus rhythm rate of 61 Left axis No PVCs PACs present Left bundle branch block No significant change from January 2020 Cardiac Monitoring: An order was placed for continuous cardiac monitoring. The monitor shows a rate of 74 with sinus rhythm. Laboratory studies: As stated above and show below. Imaging studies: CT head as well as chest abdomen pelvis shows no acute pathology Consultation(s): Discussed with Dr. Jerome Viveros for further evaluation ED COURSE: Procedures: none Critical Care: None Past Med/Surg History Medical History Acute dehydration Acute UTI (urinary tract infection) Altered mental status Anxiety Aortic stenosis Bacteremia Catheter-associated urinary tract infection Catheter-associated urinary tract infection Cerumen impaction Chest pain Decubitus ulcer Diabetes Episode of unresponsiveness Fungemia Goals of care, counseling/discussion Heart disease History of cancer of uterus History of gastrointestinal hemorrhage Hypertension Knee pain, bilateral Loss of consciousness Malnourished Postoperative anemia Stroke UTI (urinary tract infection) Surgical History H/O aortic valve replacement H/O: hysterectomy History of colonoscopy History of cystoscopy with Cystolitholapaxy History of endoscopic gastrointestinal surgery 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 S/P cataract surgery S/P hip replacement S/P tubal ligation Family History Father Myocardial infarction Hearing loss Stroke Mother Myocardial infarction Diabetes Stroke Rheumatoid arthritis Hearing loss Hypertension Family/Other Cancer Denies family history of Ovarian cancer Prostate cancer No family history of adverse response to anesthesia Breast cancer Colorectal cancer Social History Smoking Status: Unknown if ever smoked Second Hand Exposure: No; Hx Alcohol Use: No Hx Substance Use: No Preferred Language: Welsh Communication Ability: Impaired Network Relay Tester Required: No Beliefs That Will Affect Care: None marital status: / Current Living Situation: Family Current Living Situation Comment: lives with two daughters current occupational status: retired How many Children do You have: 5 Feels Safe at Home: Yes during the past year weight has: remained stable Seatbelt Use: always Assistive Devices: None, Denture - Upper and Denture - Lower Allergies Allergies Allergy/AdvReac Type Severity Reaction Status Date / Time ertapenem AdvReac Severe seizures Unverified 04/19/20 14:42 enalapril AdvReac Intermediate Cough Verified 04/19/20 14:42 escitalopram AdvReac Intermediate Hallucinati Verified 04/19/20 14:42 ons Home Meds Home Medications Medication Instructions Recorded Confirmed cholecalciferol (vitamin D3) 2,000 units PO HS 04/04/18 04/19/20 [Vitamin D3] thiamine HCl (vitamin B1) [Vitamin 250 mg PO QAM 10/21/18 04/19/20 B-1] cyanocobalamin (vitamin B-12) 5,000 mcg PO QAM 07/20/19 04/19/20 [Vitamin B-12] folic acid 0.8 mg PO QAM 07/20/19 04/19/20 polyethylene glycol 3350 [Miralax] 17 g PO BID PRN 09/19/19 04/19/20 Saccharomyces boulardii 250 mg PO QAM 10/04/19 04/19/20 docusate sodium 100 mg PO QAM 10/04/19 04/19/20 nystatin 1 applic TOPICAL TID PRN 10/04/19 04/19/20 acetaminophen [Tylenol Extra 500 mg PO BID 11/13/19 04/19/20 Strength] aspirin 81 mg PO QAM 11/13/19 04/19/20 celecoxib 100 mg PO QAM 01/27/20 04/19/20 metoprolol tartrate 25 mg PO QAM 01/27/20 04/19/20 risperidone 0.5 mg PO BID 01/27/20 04/19/20 omeprazole magnesium 10 mg oral 20 mg PO QAM ea 03/15/20 04/19/20 suspension,delayed release Myrbetriq 50 mg PO QAM 04/19/20 04/19/20 famotidine [Pepcid] 20 mg PO QAM 04/19/20 04/19/20 methenamine hippurate 1 g PO QAM 04/19/20 04/19/20 Previous Rx's Medication Instructions Recorded diclofenac sodium 1 % topical gel 2 gm TOP QID PRN #100 gm 08/07/19 ferrous sulfate 325 mg PO BIDM 30 Days #60 tab 10/09/19 lamotrigine 25 mg tablet 25 mg PO BID #60 tab 12/13/19 nystatin 100,000 unit/mL oral 5 ml PO Q6H 7 Days #140 ml 02/05/20 suspension atorvastatin 10 mg tablet 10 mg PO QAM #90 tab 03/08/20 levetiracetam 750 mg tablet 750 mg PO BID #60 tab 04/08/20 Results & Data (ED) Vital Signs Vital Signs - 24 hr 04/19/20 11:51 04/19/20 11:55 04/19/20 11:57 Temperature 36.7 C Temperature Source Rectal Pulse Rate 62 62 64 Pulse Rate from SpO2 Sensor 62 64 Respiratory Rate 19 20 19 Blood Pressure 104/60 111/65 Blood Pressure Mean 67 80 Pulse Oximetry 92 94 92 Oxygen Delivery Method Room Air Room Air Room Air Sepsis Recent Fever Within 48 Hours No Sepsis New/Unexplained Change in Mental Status No Sepsis Action Taken by Nursing No Action Required 04/19/20 12:00 04/19/20 12:10 04/19/20 12:15 Temperature Temperature Source Pulse Rate 61 64 60 Pulse Rate from SpO2 Sensor 63 64 60 Respiratory Rate 14 16 12 Blood Pressure 111/65 114/62 Blood Pressure Mean 72 74 Pulse Oximetry 97 95 96 Oxygen Delivery Method Room Air Room Air Room Air Sepsis Recent Fever Within 48 Hours Sepsis New/Unexplained Change in Mental Status Sepsis Action Taken by Nursing 04/19/20 12:20 04/19/20 12:30 04/19/20 12:40 Temperature Temperature Source Pulse Rate 59 L 61 59 L Pulse Rate from SpO2 Sensor 59 L 60 59 L Respiratory Rate 14 16 10 L Blood Pressure 115/66 Blood Pressure Mean 77 Pulse Oximetry 96 95 98 Oxygen Delivery Method Room Air Room Air Room Air Sepsis Recent Fever Within 48 Hours Sepsis New/Unexplained Change in Mental Status Sepsis Action Taken by Nursing 04/19/20 12:50 04/19/20 13:00 04/19/20 13:10 Temperature Temperature Source Pulse Rate 64 64 60 Pulse Rate from SpO2 Sensor 64 64 60 Respiratory Rate 18 14 15 Blood Pressure Blood Pressure Mean Pulse Oximetry 96 96 96 Oxygen Delivery Method Room Air Room Air Room Air Sepsis Recent Fever Within 48 Hours Sepsis New/Unexplained Change in Mental Status Sepsis Action Taken by Nursing 04/19/20 13:15 04/19/20 13:20 04/19/20 13:30 Temperature Temperature Source Pulse Rate 63 60 67 Pulse Rate from SpO2 Sensor 63 61 67 Respiratory Rate 18 22 15 Blood Pressure 107/59 L 124/65 Blood Pressure Mean 67 76 Pulse Oximetry 98 95 97 Oxygen Delivery Method Room Air Room Air Room Air Sepsis Recent Fever Within 48 Hours Sepsis New/Unexplained Change in Mental Status Sepsis Action Taken by Nursing 04/19/20 13:40 04/19/20 13:45 04/19/20 13:50 Temperature Temperature Source Pulse Rate 66 67 63 Pulse Rate from SpO2 Sensor 66 65 62 Respiratory Rate 12 12 15 Blood Pressure 118/48 L Blood Pressure Mean 63 Pulse Oximetry 98 98 97 Oxygen Delivery Method Room Air Room Air Room Air Sepsis Recent Fever Within 48 Hours Sepsis New/Unexplained Change in Mental Status Sepsis Action Taken by Nursing 04/19/20 14:00 04/19/20 14:10 04/19/20 14:15 Temperature Temperature Source Pulse Rate 68 Pulse Rate from SpO2 Sensor 68 72 73 Respiratory Rate 17 Blood Pressure 103/52 L 111/81 Blood Pressure Mean 69 101 Pulse Oximetry 97 99 98 Oxygen Delivery Method Room Air Room Air Room Air Sepsis Recent Fever Within 48 Hours Sepsis New/Unexplained Change in Mental Status Sepsis Action Taken by Nursing 04/19/20 14:20 04/19/20 14:30 04/19/20 14:31 Temperature Temperature Source Pulse Rate Pulse Rate from SpO2 Sensor 69 77 79 Respiratory Rate Blood Pressure 96/80 L Blood Pressure Mean 86 Pulse Oximetry 98 97 98 Oxygen Delivery Method Room Air Room Air Room Air Sepsis Recent Fever Within 48 Hours Sepsis New/Unexplained Change in Mental Status Sepsis Action Taken by Nursing 04/19/20 14:40 04/19/20 14:46 04/19/20 14:50 Temperature Temperature Source Pulse Rate Pulse Rate from SpO2 Sensor 73 74 76 Respiratory Rate Blood Pressure 133/64 Blood Pressure Mean 95 Pulse Oximetry 99 98 97 Oxygen Delivery Method Room Air Room Air Room Air Sepsis Recent Fever Within 48 Hours Sepsis New/Unexplained Change in Mental Status Sepsis Action Taken by Nursing 04/19/20 15:00 04/19/20 15:01 04/19/20 15:22 Temperature Temperature Source Pulse Rate Pulse Rate from SpO2 Sensor 75 73 78 Respiratory Rate Blood Pressure 128/66 Blood Pressure Mean 81 Pulse Oximetry 99 99 98 Oxygen Delivery Method Room Air Room Air Room Air Sepsis Recent Fever Within 48 Hours Sepsis New/Unexplained Change in Mental Status Sepsis Action Taken by Nursing 04/19/20 15:30 04/19/20 15:31 04/19/20 15:46 Temperature Temperature Source Pulse Rate Pulse Rate from SpO2 Sensor 79 75 Respiratory Rate Blood Pressure 146/45 H 128/73 Blood Pressure Mean 73 79 Pulse Oximetry 97 96 Oxygen Delivery Method Room Air Room Air Room Air Sepsis Recent Fever Within 48 Hours Sepsis New/Unexplained Change in Mental Status Sepsis Action Taken by Nursing 04/19/20 16:00 04/19/20 16:02 04/19/20 16:10 Temperature Temperature Source Pulse Rate 77 76 75 Pulse Rate from SpO2 Sensor Respiratory Rate Blood Pressure 145/64 H Blood Pressure Mean 88 Pulse Oximetry Oxygen Delivery Method Room Air Room Air Room Air Sepsis Recent Fever Within 48 Hours Sepsis New/Unexplained Change in Mental Status Sepsis Action Taken by Nursing 04/19/20 16:16 04/19/20 16:23 04/19/20 16:30 Temperature Temperature Source Pulse Rate 85 86 Pulse Rate from SpO2 Sensor Respiratory Rate Blood Pressure 130/89 Blood Pressure Mean 111 Pulse Oximetry Oxygen Delivery Method Room Air Room Air Room Air Sepsis Recent Fever Within 48 Hours Sepsis New/Unexplained Change in Mental Status Sepsis Action Taken by Nursing 04/19/20 16:31 04/19/20 16:45 04/19/20 16:50 Temperature Temperature Source Pulse Rate 88 86 81 Pulse Rate from SpO2 Sensor Respiratory Rate Blood Pressure 130/65 139/92 Blood Pressure Mean 98 119 Pulse Oximetry Oxygen Delivery Method Room Air Room Air Room Air Sepsis Recent Fever Within 48 Hours Sepsis New/Unexplained Change in Mental Status Sepsis Action Taken by Nursing 04/19/20 17:00 04/19/20 17:30 04/19/20 17:45 Temperature Temperature Source Pulse Rate 78 74 73 Pulse Rate from SpO2 Sensor 78 74 73 Respiratory Rate Blood Pressure 91/80 L 133/58 L 129/61 Blood Pressure Mean 82 66 80 Pulse Oximetry 99 95 94 Oxygen Delivery Method Sepsis Recent Fever Within 48 Hours Sepsis New/Unexplained Change in Mental Status Sepsis Action Taken by Nursing 04/19/20 18:00 04/19/20 18:15 Temperature Temperature Source Pulse Rate 73 75 Pulse Rate from SpO2 Sensor 73 75 Respiratory Rate Blood Pressure 123/58 L 127/59 L Blood Pressure Mean 77 80 Pulse Oximetry 94 94 Oxygen Delivery Method Sepsis Recent Fever Within 48 Hours Sepsis New/Unexplained Change in Mental Status Sepsis Action Taken by Nursing Laboratory Data Result diagrams: 04/19/20 13:38 04/19/20 13:38 Lab Results 04/19/20 04/19/20 04/19/20 Range/Units 13:38 13:38 13:38 WBC 9.01 (4.8-10.8) K/uL RBC 3.87 L (4.2-5.4) M/uL Hgb 11.8 L (12.0-16.0) g/dL Hct 36.8 L (37-47) % MCV 95.1 (80-100) fL MCH 30.5 (25-34) pg MCHC 32.1 (32-36) g/dL RDW Std Deviation 43.7 (36.4-46.3) fL RDW Coeff of [place] 12.6 (11.5-14.5) % Plt Count 154 (130-400) K/uL MPV 11.0 H (7.4-10.4) fL Immature Gran % (Auto) 0.3 % Neut % (Auto) 74.4 % Lymph % (Auto) 14.3 % [place] % (Auto) 9.4 % Eos % (Auto) 1.4 % Baso % (Auto) 0.2 % Neut # (Auto) 6.69 H (1.4-6.5) K/uL Lymph # (Auto) 1.29 (1.2-3.4) K/uL [place] # (Auto) 0.85 H (0.11-0.59) K/uL Eos # (Auto) 0.13 (0-0.5) K/uL Baso # (Auto) 0.02 (0-0.2) K/uL Immature Gran # (Auto) 0.03 H (0.00-0.02) K/uL Sodium 143 (136-145) mmol/L Potassium 4.1 (3.5-5.1) mmol/L Chloride 109 H (98-107) mmol/L Carbon Dioxide 29 (21-32) mmol/L Anion Gap 5.0 (3-11) BUN 44 H (7-18) mg/dl Creatinine 1.02 (0.6-1.2) mg/dl Est Cr Clr Drug Dosing Not Reportable Est GFR ( Amer) 58.9 Est GFR (Non-Af Amer) 50.8 BUN/Creatinine Ratio 43.2 H (10-20) Glucose 129 H (70-99) mg/dl Calcium 9.0 (8.5-10.1) mg/dl Total Bilirubin 0.3 (0.2-1) mg/dl AST 28 (15-37) U/L ALT 24 (12-78) U/L Alkaline Phosphatase 84 (45-117) U/L Troponin I < 0.015 (0-0.045) ng/ml Total Protein 6.9 (6.4-8.2) gm/dl Albumin 3.3 L (3.4-5.0) gm/dl Globulin 3.6 (2.5-4.0) gm/dl Albumin/Globulin Ratio 0.9 (0.9-2) Urine Color Urine Appearance (Clear) Urine pH (4.5-7.5) Ur Specific [place] (1.000-1.030) Urine Protein (Negative) Urine Glucose (UA) (Negative) Urine Ketones (Negative) Urine Blood (Negative) Urine Nitrite (Negative) Urine Bilirubin (Negative) Urine Urobilinogen (Negative) Ur Leukocyte Esterase (Negative) Urine WBC (Auto) (0-5) /hpf Urine RBC (Auto) (0-4) /hpf U Hyaline Cast (Auto) (0-5) /lpf U Epithel Cells (Auto) (0-5) /lpf Urine Bacteria (Auto) (Negative) Ur Renal Epithelial Cell Urine Yeast (None Prsent) SARS-CoV-2 Ag (Rapid) (Negative) 04/19/20 04/19/20 Range/Units 14:12 18:32 WBC (4.8-10.8) K/uL RBC (4.2-5.4) M/uL Hgb (12.0-16.0) g/dL Hct (37-47) % MCV (80-100) fL MCH (25-34) pg MCHC (32-36) g/dL RDW Std Deviation (36.4-46.3) fL RDW Coeff of [place] (11.5-14.5) % Plt Count (130-400) K/uL MPV (7.4-10.4) fL Immature Gran % (Auto) % Neut % (Auto) % Lymph % (Auto) % [place] % (Auto) % Eos % (Auto) % Baso % (Auto) % Neut # (Auto) (1.4-6.5) K/uL Lymph # (Auto) (1.2-3.4) K/uL [place] # (Auto) (0.11-0.59) K/uL Eos # (Auto) (0-0.5) K/uL Baso # (Auto) (0-0.2) K/uL Immature Gran # (Auto) (0.00-0.02) K/uL Sodium (136-145) mmol/L Potassium (3.5-5.1) mmol/L Chloride (98-107) mmol/L Carbon Dioxide (21-32) mmol/L Anion Gap (3-11) BUN (7-18) mg/dl Creatinine (0.6-1.2) mg/dl Est Cr Clr Drug Dosing Est GFR ( Amer) Est GFR (Non-Af Amer) BUN/Creatinine Ratio (10-20) Glucose (70-99) mg/dl Calcium (8.5-10.1) mg/dl Total Bilirubin (0.2-1) mg/dl AST (15-37) U/L ALT (12-78) U/L Alkaline Phosphatase (45-117) U/L Troponin I (0-0.045) ng/ml Total Protein (6.4-8.2) gm/dl Albumin (3.4-5.0) gm/dl Globulin (2.5-4.0) gm/dl Albumin/Globulin Ratio (0.9-2) Urine Color Dark Yellow Urine Appearance Cloudy A (Clear) Urine pH 5.0 (4.5-7.5) Ur Specific [place] 1.029 (1.000-1.030) Urine Protein 1+ H (Negative) Urine Glucose (UA) Negative (Negative) Urine Ketones Trace H (Negative) Urine Blood Negative (Negative) Urine Nitrite Negative (Negative) Urine Bilirubin Negative (Negative) Urine Urobilinogen Negative (Negative) Ur Leukocyte Esterase 2+ H (Negative) Urine WBC (Auto) >30 H (0-5) /hpf Urine RBC (Auto) 0-4 (0-4) /hpf U Hyaline Cast (Auto) 0 (0-5) /lpf U Epithel Cells (Auto) >30 H (0-5) /lpf Urine Bacteria (Auto) Negative (Negative) Ur Renal Epithelial Cell Not Reportable Urine Yeast Budding A (None Prsent) SARS-CoV-2 Ag (Rapid) Negative (Negative) Administered Medications Ceftazidime/Avibactam 2.5 gm/ (Sodium Chloride) 62 mls @ 25 mls/hr IV Q8H SURJIT Stop: 04/19/20 18:59 Last Admin: 04/19/20 18:31 Dose: 25 mls/hr Documented by: [id number] Discontinued Medications Sodium Chloride (Nss 1000ml) 1,000 mls @ 999 mls/hr IV .Q1H1M ONE Stop: 04/19/20 13:56 Last Infusion: 04/19/20 14:39 Dose: 0 mls/hr Documented by: [id number] Admin: 04/19/20 13:28 Dose: 999 mls/hr Documented by: [id number] Ioversol (Ioversol 100ml) 94 ml IV ONCE ONE Stop: 04/19/20 15:10 Last Admin: 04/19/20 15:09 Dose: 94 ml Documented by: [id number] Discharge Plan Visit Data Chief Complaint: Unresponsive Stated Complaint: Unresponsive possible aspiration ED Provider: Joey Lee Discharge Problem: AMS (altered mental status), Acute confusion, Acute UTI Forms Stand Alone Forms: My [facility] Prescriptions Prescriptions: No Action diclofenac sodium [Voltaren] 1 % gel 2 gm TOP QID PRN (Reason: JOINT PAIN) Qty: 100 RF: 0 atorvastatin [Lipitor] 10 mg tablet 10 mg PO QAM Qty: 90 RF: 3 levetiracetam 750 mg tablet 750 mg PO BID Qty: 60 RF: 0 lamotrigine [Lamictal] 25 mg tablet 25 mg PO BID Qty: 60 RF: 2 Prilosec 10 mg susp,delayed release for recon 20 mg PO QAM RF: 0 nystatin 100,000 unit/mL suspension 5 ml PO Q6H 7 Days Qty: 140 RF: 0 cholecalciferol (vitamin D3) [Vitamin D3] 2,000 unit Capsule 2,000 units PO HS RF: 0 thiamine HCl (vitamin B1) [Vitamin B-1] 250 mg Tablet 250 mg PO QAM RF: 0 polyethylene glycol 3350 [Miralax] 17 gram powder in packet 17 g PO BID PRN (Reason: Constipation) RF: 0 celecoxib 100 mg capsule 100 mg PO QAM RF: 0 risperidone 0.5 mg tablet 0.5 mg PO BID RF: 0 metoprolol tartrate 25 mg tablet 25 mg PO QAM RF: 0 folic acid 800 mcg Tablet 0.8 mg PO QAM RF: 0 cyanocobalamin (vitamin B-12) [Vitamin B-12] 5,000 mcg Tablet, Sublingual 5,000 mcg PO QAM RF: 0 docusate sodium 100 mg Tablet 100 mg PO QAM RF: 0 Saccharomyces boulardii 250 mg Capsule 250 mg PO QAM RF: 0 nystatin 100,000 unit/gram Powder 1 applic TOPICAL TID PRN (Reason: .) RF: 0 ferrous sulfate 325 mg (65 mg iron) Tablet,Delayed Release (Dr/Ec) 325 mg PO BIDM 30 Days Qty: 60 RF: 3 acetaminophen [Tylenol Extra Strength] 500 mg Tablet 500 mg PO BID RF: 0 aspirin 81 mg Tablet,Delayed Release (Dr/Ec) 81 mg PO QAM RF: 0 methenamine hippurate 1 gram tablet 1 g PO QAM RF: 0 famotidine [Pepcid] 20 mg tablet 20 mg PO QAM RF: 0 Myrbetriq 50 mg tablet extended release 24 hr 50 mg PO QAM RF: 0 Discharge Problem: AMS (altered mental status) Qualifiers: Altered mental status type: unspecified Qualified Code(s): R41.82 - Altered mental status, unspecified
[2020-04-19 13:51] LABS: Basophils # (auto) 0.02 K/uL (0-0.2); Basophils % (auto) 0.2 %; Eosinophils # (auto) 0.13 K/uL (0-0.5); Eosinophils % (auto) 1.4 %; Hematocrit (blood only) 36.8 % (37-47); Hemoglobin 11.8 g/dL (12.0-16.0); Immature Granulocytes # (auto) 0.03 K/uL (0.00-0.02); Immature Granulocytes % (auto) 0.3 %; Lymphocytes # (auto) 1.29 K/uL (1.2-3.4); Lymphocytes % (auto) 14.3 %; Mean Corpuscular Hemoglobin 30.5 pg (25-34); Mean Corpuscular Hgb Conc 32.1 g/dL (32-36); Mean Corpuscular Volume 95.1 fL (80-100); Monocytes # (auto) 0.85 K/uL (0.11-0.59); Monocytes % (auto) 9.4 %; Neutrophils # (auto) 6.69 K/uL (1.4-6.5); Neutrophils % (auto) 74.4 %; Platelet Count 154 K/uL (130-400); RDW Coefficient of Variation 12.6 % (11.5-14.5); RDW Standard Deviation 43.7 fL (36.4-46.3); Red Blood Count 3.87 M/uL (4.2-5.4); White Blood Count 9.01 K/uL (4.8-10.8)
[2020-04-19 14:11] LABS: Alanine Aminotransferase 24 U/L (12-78); Albumin Level 3.3 gm/dl (3.4-5.0); Aspartate Aminotransferase 28 U/L (15-37); BUN Creatinine Ratio 43.2 (10-20); Blood Urea Nitrogen 44 mg/dl (7-18); Carbon Dioxide 29 mmol/L (21-32); Chloride 109 mmol/L (98-107); Est GFR (African American) 58.9; Est GFR (Non-African American) 50.8; Glucose 129 mg/dl (70-99); Potassium 4.1 mmol/L (3.5-5.1); Sodium 143 mmol/L (136-145)
[2020-04-19 14:14] LABS: Albumin Globulin Ratio 0.9 (0.9-2); Alkaline Phosphatase 84 U/L (45-117); Bilirubin,Total 0.3 mg/dl (0.2-1); Globulin 3.6 gm/dl (2.5-4.0); Total Protein 6.9 gm/dl (6.4-8.2)
[2020-04-19 14:43] LABS: Appearance Urine Cloudy (Clear); Bacteria Urine Automated Negative (Negative); Bilirubin Urine Negative (Negative); Blood Urine Negative (Negative); Color Urine Dark Yellow; Epithelial Cell Urine Auto >30 /lpf (0-5); Glucose Urine UA Negative (Negative); Ketones Urine Trace (Negative); Leukocyte Esterase Urine 2+ (Negative); Nitrite Urine Negative (Negative); Protein Urine 1+ (Negative); Specific Gravity Urine 1.029 (1.000-1.030); Urobilinogen Urine Negative (Negative); WBC Urine Automated >30 /hpf (0-5)
[2020-04-19] MEDS ORDERED: IOVERSOL 100ml IV ONE (15:09)
[2020-04-19 15:17] LABS: Cast Urine Automated 0 /lpf (0-5); RBC Urine Automated 0-4 /hpf (0-4)
--- NOTE | 2020-04-19 15:23 | CT Scan Report ---
HEAD CT NONCONTRAST CT DOSE: HISTORY: Altered mental status. TECHNIQUE: Multiaxial CT images of the head were performed without the use of intravenous contrast. A utomated exposure control was utilized for this study. A dose lowering technique was utilized adheri ng to the principles of ALARA. Comparison: Head CT 12/06/2019. Findings: Significant motion artifact results in suboptimal evaluation. The paranasal sinuses and mas toid air cells appear clear. The calvarium and skull base are likely intact. No definite mass, hemato ma, midline shift, or acute infarct. White matter hypodensity is nonspecific but suggestive of microv ascular ischemic change. The ventricles and sulci demonstrate mild age-related involutional changes. Encephalomalacia within the bilateral temporal lobes consistent with old MCA territory infarcts, righ t greater than left. There are few small lacunar infarcts seen within the bilateral cerebellar hemisp heres. Impression: 1. Motion artifact results in suboptimal evaluation. 2. No definite acute intracranial abnormality. 3. Old infarcts are again noted. ACT 112: Negative or not required by law. Electronically signed by: Madan Ortiz M.D. 04/19/2020 3:22 PM
--- NOTE | 2020-04-19 15:31 | CT Scan Report ---
CT abd pelvis IV con only CLINICAL HISTORY: Vomiting. Unresponsive patient. COMPARISON STUDY: Noncontrast CT scan dated 12/06/2019 TECHNIQUE: The patient was scanned in a dynamic helical fashion during intravenous administration of 94 cc of Optiray 320 A dose lowering technique was utilized adhering to the principles of ALARA. CT DOSE: 2399.95 mGy.cm FINDINGS: Lower chest: There are basilar atelectatic changes Liver: The contrast-enhanced liver is normal in size, contour, and attenuation. There is no intrahepa tic biliary ductal dilatation. The hepatic veins and portal veins are patent. Gallbladder: Cholelithiasis. No pericholecystic edema. The common bile duct is mildly dilated measuri ng 9 mm. Spleen: Normal in size and attenuation. Pancreas: Unremarkable. Adrenal glands: Unremarkable. Kidneys: There are bilateral renal cysts, the largest of which is located on the left measuring 6.7 c m Bowel: There are multiple fluid-filled bowel loops. There are no transition zones to indicate bowel o bstruction. There is colonic diverticulosis. There is no evidence of acute diverticulitis. There are no findings to indicate acute appendicitis. Peritoneum: There is no intraperitoneal free air or abdominal ascites. Vasculature: The abdominal aorta is normal in course and caliber. Adenopathy: None. Pelvic viscera: There is artifact from a total left hip arthroplasty. The uterus appears surgically a bsent. There is a joint Sears catheter Skeletal structures: There is a total left hip arthroplasty. The bones are osteopenic. No destructive lesions are visualized. There are old vertebral endplate compression deformities. IMPRESSION: 1. No acute intra-abdominal or pelvic findings 2. No evidence of bowel obstruction. No evidence of free air 3. Colonic diverticulosis. No evidence of acute diverticulitis 4. Cholelithiasis. 9 mm common bile duct. ACT 112: Negative or not required by law. Electronically signed by: Berny Diallo M.D. 04/19/2020 3:30 PM
--- NOTE | 2020-04-19 15:35 | CT Scan Report ---
CHEST CT WITH CONTRAST HISTORY: Acute vomiting. The patient is reportedly unresponsive. vomiting and unresponsive TECHNIQUE: Multiaxial CT images of the chest were performed following the IV administration of 94 cc of Optiray 320. A dose lowering technique was utilized adhering to the principles of ALARA. COMPARISON: CT abdomen and pelvis of same day, CTA of the chest 09/25/2019 FINDINGS: Heart is upper limits of normal in size. Prior median sternotomy. Extensive calcification o f the [place] coronary arteries. Aortic valvular prosthesis. Dense calcifications of the mitral annulu s. Calcified plaque of the thoracic aorta without aneurysm or dissection. Patency of the imaged great vessels. The imaged opacified pulmonary artery is unremarkable. Respiratory motion artifact limits t he study. No large thyroid nodule or pathologic adenopathy. There is no pneumothorax, pleural effusio n, overt pulmonary edema or airspace consolidation typical for pneumonia. Mild subsegmental linear sc arring/atelectasis. There are no suspicious pulmonary nodules or masses. Mild tracheobronchial secret ions. Unremarkable soft tissues. No acute process of the imaged upper abdomen. Degenerative changes of the shoulders and spine. Unchanged mid thoracic compression deformities. No acute fracture. IMPRESSION: 1. No acute intrathoracic abnormality. 2. No acute fracture. 3. Additional findings as above. ACT 112: Negative or not required by law. Electronically signed by: Suraj Day M.D. 04/19/2020 3:33 PM
[2020-04-19] MEDS ORDERED: FLUCONAZOLE 100 MG/50 ML BAG IV SCH (16:45)
[2020-04-19] MEDS ORDERED: FLUCONAZOLE 100 MG/50 ML BAG IV STA (16:52)
--- NOTE | 2020-04-19 17:53 | History & Physical Report ---
Date of Service April 19, 2020 Assessment & Plan (1) Seizure-like activity: Episode of seizure-like activity. - Precautions - Will continue home seizure meds - Discuss with neurology in the AM - Precautions (2) Chronic UTI: Chronic/recurrent UTIs vs. asymptomatic bacteruria while she had a catheter in place. This was removed in 02/2020. - Son still feels that her mental status issues are related to infection which I tried to discuss with him for over 30 minutes. He remains convinced there is a UTI present and that this is the reversible cause of her decline several weeks ago. I explained that we are not seeing a UTI, and that it would be unlikely that she has waxing and waning symptoms from a UTI. We will follow for any culture sent, but I do not think that her weeks-long irritability and fatigue is due to UTI. (3) CAD (coronary artery disease): Cannot report any chest pain. - Continue ASA, statin (4) DVT prophylaxis: SCDs - Short admission History of Present Illness Primary Care Provider: uArora Estrada MD 84yo M w/ hx of CVA and dementia who presents with possible seizure-like episode. Per the son, she has been more irritable and sometimes tired for the last 3 weeks. He is convinced there is some infection that is causing this issue and has gotten multiple tests from multiple providers. He is convinced that there is a UTI causing this change. He does note that she is at times verbal and responsive, and mostly seems to be dismayed that she frequently seems so uncomfortable. Over the last few weeks has mentioned abdominal pain to him, but is not verbal enough to localize it or describe the symptoms. The main reason he brought her in today was that she was sleeping and kind of "startled" and shook her head back and forth. She then vomited and had an episode of complete unresponsiveness. He was worried about a seizure or aspiration and brought her in. At the time of my interview, she was very restless and grabbing and holding my hand. After about 10 minutes, she fell asleep and was comfortable after that point. Allergies Allergy/AdvReac Type Severity Reaction Status Date / Time ertapenem AdvReac Severe seizures Unverified 04/19/20 14:42 enalapril AdvReac Intermediate Cough Verified 04/19/20 14:42 escitalopram AdvReac Intermediate Hallucinati Verified 04/19/20 14:42 ons Home Medications Medication Instructions Recorded Confirmed Type cholecalciferol (vitamin D3) 2,000 units PO HS 04/04/18 04/19/20 History [Vitamin D3] thiamine HCl (vitamin B1) [Vitamin 250 mg PO QAM 10/21/18 04/19/20 History B-1] cyanocobalamin (vitamin B-12) 5,000 mcg PO QAM 07/20/19 04/19/20 History [Vitamin B-12] folic acid 0.8 mg PO QAM 07/20/19 04/19/20 History diclofenac sodium 1 % topical gel 2 gm TOP QID PRN #100 gm 08/07/19 04/19/20 Rx polyethylene glycol 3350 [Miralax] 17 g PO BID PRN 09/19/19 04/19/20 History Saccharomyces boulardii 250 mg PO QAM 10/04/19 04/19/20 History docusate sodium 100 mg PO QAM 10/04/19 04/19/20 History nystatin 1 applic TOPICAL TID PRN 10/04/19 04/19/20 History ferrous sulfate 325 mg PO BIDM 30 Days #60 tab 10/09/19 04/19/20 Rx acetaminophen [Tylenol Extra 500 mg PO BID 11/13/19 04/19/20 History Strength] aspirin 81 mg PO QAM 11/13/19 04/19/20 History lamotrigine 25 mg tablet 25 mg PO BID #60 tab 12/13/19 04/19/20 Rx celecoxib 100 mg PO QAM 01/27/20 04/19/20 History metoprolol tartrate 25 mg PO QAM 01/27/20 04/19/20 History risperidone 0.5 mg PO BID 01/27/20 04/19/20 History nystatin 100,000 unit/mL oral 5 ml PO Q6H 7 Days #140 ml 02/05/20 04/19/20 Rx suspension atorvastatin 10 mg tablet 10 mg PO QAM #90 tab 03/08/20 04/19/20 Rx omeprazole magnesium 10 mg oral 20 mg PO QAM ea 03/15/20 04/19/20 History suspension,delayed release levetiracetam 750 mg tablet 750 mg PO BID #60 tab 04/08/20 04/19/20 Rx Myrbetriq 50 mg PO QAM 04/19/20 04/19/20 History famotidine [Pepcid] 20 mg PO QAM 04/19/20 04/19/20 History methenamine hippurate 1 g PO QAM 04/19/20 04/19/20 History Past Med/Surg History Medical History Acute dehydration Acute UTI (urinary tract infection) Altered mental status Anxiety Aortic stenosis Bacteremia Catheter-associated urinary tract infection Catheter-associated urinary tract infection Cerumen impaction Chest pain Decubitus ulcer Diabetes Episode of unresponsiveness Fungemia Goals of care, counseling/discussion Heart disease History of cancer of uterus History of gastrointestinal hemorrhage Hypertension Knee pain, bilateral Loss of consciousness Malnourished Postoperative anemia Stroke UTI (urinary tract infection) Surgical History H/O aortic valve replacement H/O: hysterectomy History of colonoscopy History of cystoscopy with Cystolitholapaxy History of endoscopic gastrointestinal surgery 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 S/P cataract surgery S/P hip replacement S/P tubal ligation Family History Father Myocardial infarction Hearing loss Stroke Mother Myocardial infarction Diabetes Stroke Rheumatoid arthritis Hearing loss Hypertension Family/Other Cancer Denies family history of Ovarian cancer Prostate cancer No family history of adverse response to anesthesia Breast cancer Colorectal cancer Social History Smoking Status: Unknown if ever smoked Second Hand Exposure: No; Hx Alcohol Use: No Hx Substance Use: No Preferred Language: Lithuanian Communication Ability: Impaired Pulp Press Tender Required: No Beliefs That Will Affect Care: None marital status: / Current Living Situation: Family Current Living Situation Comment: lives with two daughters current occupational status: retired How many Children do You have: 5 Feels Safe at Home: Yes during the past year weight has: remained stable Seatbelt Use: always Assistive Devices: None, Denture - Upper and Denture - Lower Review of Systems Review of Systems: Unobtainable due to cognitive status and Unobtainable due to reduced consciousness Physical Exam Constitutional: + acute distress, + cachectic and + disheveled Eyes: EOM intact bilaterally; no conjunctival abnormality ENMT: external ear and nose normal, oropharynx normal Neck: trachea midline, no thyromegaly normal visual inspection Respiratory: normal respiratory effort, lungs clear to auscultation no respiratory distress Cardiovascular: RRR, no murmur, no edema Gastrointestinal (Abdomen): Inspection/Auscultation: abdomen normal to inspection; abdomen not distended Musculoskeletal: no cyanosis or clubbing, extremities motor strength 5/5 Skin: no rashes, warm and dry Neurologic: moves all extremities and awake Psychiatric: Orientation: alert; + not oriented to person Results & Data Results & Data ([facility]) Vital Signs (Past 12 Hours) Vital Signs Temp Pulse Resp BP Pulse Ox 04/19/20 16:50 81 04/19/20 16:45 86 139/92 04/19/20 16:31 88 130/65 04/19/20 16:30 86 04/19/20 16:23 85 04/19/20 16:16 130/89 04/19/20 16:10 75 04/19/20 16:02 76 145/64 H 04/19/20 16:00 77 04/19/20 15:46 128/73 04/19/20 15:31 146/45 H 96 04/19/20 15:30 97 04/19/20 15:22 98 04/19/20 15:01 128/66 99 04/19/20 15:00 99 04/19/20 14:50 97 04/19/20 14:46 133/64 98 04/19/20 14:40 99 04/19/20 14:31 96/80 L 98 04/19/20 14:30 97 04/19/20 14:20 98 04/19/20 14:15 111/81 98 04/19/20 14:10 99 04/19/20 14:00 68 17 103/52 L 97 04/19/20 13:50 63 15 97 04/19/20 13:45 67 12 118/48 L 98 04/19/20 13:40 66 12 98 04/19/20 13:30 67 15 124/65 97 04/19/20 13:20 60 22 95 04/19/20 13:15 63 18 107/59 L 98 04/19/20 13:10 60 15 96 04/19/20 13:00 64 14 96 04/19/20 12:50 64 18 96 04/19/20 12:40 59 L 10 L 98 04/19/20 12:30 61 16 115/66 95 04/19/20 12:20 59 L 14 96 04/19/20 12:15 60 12 114/62 96 04/19/20 12:10 64 16 95 04/19/20 12:00 61 14 111/65 97 04/19/20 11:57 64 19 92 04/19/20 11:55 36.7 C 62 20 111/65 94 04/19/20 11:51 62 19 104/60 92 Code Status & VTE Plan VTE Prophylaxis Plan VTE Prophylaxis will be ordered: Yes PG Care Time/CCT Total # of Minutes Spent Total Time Spent with Patient: Total time spent is greater than 50% in coordination of care (as documented) at patient's floor/unit and/or counseling patient: Coding Level of Care Code 38853 OBS Care - Level 3 Diagnoses Seizure-like activity R56.9 Chronic UTI N39.0 CAD (coronary artery disease) I25.10 DVT prophylaxis Z29.9
[2020-04-19] MEDS ORDERED: ACETAMINOPHEN 325 MG TAB PO PRN (20:02)
[2020-04-19] MEDS ORDERED: ONDANSETRON INJ 2 MG/ML 2 ML VIAL IV PRN (20:02)
[2020-04-19] MEDS ORDERED: levETIRAcetam 250 MG TAB PO SCH (21:00)
[2020-04-19] MEDS: risperiDONE 0.5 MG TABLET PO SCH (21:39)
[2020-04-19] MEDS: lamoTRIgine 25 MG TAB PO SCH (21:39)
[2020-04-19] MEDS: ACETAMINOPHEN 500 MG TAB PO SCH (21:39)
[2020-04-19] MEDS: METHENAMINE HIPPURATE 1 GM TAB PO SCH (21:40)
[2020-04-19] MEDS ORDERED: Nursing to Pharmacy Communication SCH (22:00)
[2020-04-19] MEDS: levETIRAcetam ORAL SOLN 100MG/ML PO SCH (22:22)
--- NOTE | 2020-04-20 03:59 | Communication Note ---
Date of Service: April 20, 2020 Patient with one dark tarry stool, hemoccult was positive. Vital signs WNL. Will make patient NPO besides medications and start on protonix IV. h and H ordered
[2020-04-20 04:04] LABS: Hematocrit (blood only) 33.2 % (37-47); Hemoglobin 10.7 g/dL (12.0-16.0); Mean Corpuscular Hemoglobin 30.3 pg (25-34); Mean Corpuscular Hgb Conc 32.2 g/dL (32-36); Mean Corpuscular Volume 94.1 fL (80-100); Platelet Count 131 K/uL (130-400); RDW Coefficient of Variation 12.7 % (11.5-14.5); RDW Standard Deviation 43.7 fL (36.4-46.3); Red Blood Count 3.53 M/uL (4.2-5.4); White Blood Count 9.92 K/uL (4.8-10.8)
[2020-04-20 04:20] LABS: BUN Creatinine Ratio 44.2 (10-20); Creatinine Clr Calc Pharmacy 46.3 ml/min; Est GFR (African American) 75.6; Est GFR (Non-African American) 65.2; Potassium 3.8 mmol/L (3.5-5.1)
[2020-04-20] MEDS ORDERED: PANTOprazole 40 MG TAB PO SCH (09:00)
[2020-04-20] MEDS: DOCUSATE SODIUM 100 MG CAP PO SCH (17:39)
[2020-04-20] MEDS: lamoTRIgine 25 MG TAB PO SCH ×2 (17:39→21:19)
[2020-04-20] MEDS: FAMOTIDINE 20 MG TAB PO SCH (17:39)
[2020-04-20] MEDS: ATORVASTATIN 10 MG TAB PO SCH (17:39)
[2020-04-20] MEDS: SACCHAROMYCES BOULARDII 250 MG CAP PO SCH (17:39)
[2020-04-20] MEDS: METOPROLOL TARTRATE 25 MG TAB PO SCH (17:39)
[2020-04-20] MEDS: THIAMINE HCL 50 MG TABLET PO SCH (17:40)
[2020-04-20] MEDS: ACETAMINOPHEN 500 MG TAB PO SCH ×2 (17:40→21:19)
[2020-04-20] MEDS: risperiDONE 0.5 MG TABLET PO SCH ×2 (17:40→21:19)
[2020-04-20] MEDS: levETIRAcetam ORAL SOLN 100MG/ML PO SCH (17:45)
[2020-04-20] MEDS: PANTOprazole 40 MG in SYRINGE 0 ML IV SCH ×2 (17:46→21:20)
[2020-04-20] MEDS ORDERED: NORMOSOL-R 500 ML IV ONE (18:03)
[2020-04-20 19:34] LABS: Hematocrit (blood only) 31.5 % (37-47); Hemoglobin 10.4 g/dL (12.0-16.0)
[2020-04-20] MEDS: levETIRAcetam 250 MG in 0.9 % SODIUM CHLORIDE 100 ML IV SCH (21:19)
[2020-04-20] MEDS: METHENAMINE HIPPURATE 1 GM TAB PO SCH (21:20)
[2020-04-21 05:29] LABS: Hematocrit (blood only) 33.3 % (37-47); Hemoglobin 10.6 g/dL (12.0-16.0); Mean Corpuscular Hemoglobin 30.3 pg (25-34); Mean Corpuscular Hgb Conc 31.8 g/dL (32-36); Mean Corpuscular Volume 95.1 fL (80-100); Platelet Count 123 K/uL (130-400); RDW Coefficient of Variation 12.7 % (11.5-14.5); RDW Standard Deviation 44.1 fL (36.4-46.3); White Blood Count 8.53 K/uL (4.8-10.8)
[2020-04-21 05:46] LABS: Albumin Level 3.2 gm/dl (3.4-5.0); BUN Creatinine Ratio 33.6 (10-20); Bilirubin Direct 0.1 mg/dl (0-0.2); Calcium 8.9 mg/dl (8.5-10.1); Creatinine Clr Calc Pharmacy 45.2 ml/min; Est GFR (African American) 73.4; Est GFR (Non-African American) 63.4; INR 1.1 (0.9-1.1); Partial Thromboplastin Ratio 0.9; Partial Thromboplastin Time 25.4 Seconds (21.0-31.0); Potassium 3.9 mmol/L (3.5-5.1); Prothrombin Time 11.4 Seconds (9.0-12.0)
[2020-04-21 05:49] LABS: Bilirubin,Total 0.5 mg/dl (0.2-1); Total Protein 6.7 gm/dl (6.4-8.2)
[2020-04-21] MEDS: DOCUSATE SODIUM 100 MG CAP PO SCH (08:38)
[2020-04-21] MEDS: METOPROLOL TARTRATE 25 MG TAB PO SCH (08:38)
[2020-04-21] MEDS: SACCHAROMYCES BOULARDII 250 MG CAP PO SCH (08:38)
[2020-04-21] MEDS: ATORVASTATIN 10 MG TAB PO SCH (08:38)
[2020-04-21] MEDS: FAMOTIDINE 20 MG TAB PO SCH (08:38)
[2020-04-21] MEDS: lamoTRIgine 25 MG TAB PO SCH ×2 (08:38→21:39)
[2020-04-21] MEDS: risperiDONE 0.5 MG TABLET PO SCH ×2 (08:39→21:39)
[2020-04-21] MEDS: THIAMINE HCL 50 MG TABLET PO SCH (08:39)
[2020-04-21] MEDS: ACETAMINOPHEN 500 MG TAB PO SCH ×2 (08:39→21:40)
[2020-04-21] MEDS: levETIRAcetam 250 MG in 0.9 % SODIUM CHLORIDE 100 ML IV SCH ×2 (09:08→21:42)
[2020-04-21] MEDS: PANTOprazole 40 MG in SYRINGE 0 ML IV SCH ×2 (09:27→21:42)
--- NOTE | 2020-04-21 15:11 | Gastrointestinal Consultation ---
Date of Consultation April 21, 2020 Assessment & Plan (1) Melena: One melenic stool noted and none further so no evidence of rapid bleeding. She could have PUD from ASA and/or Celecoxib so would stop those indefinitely. Would treat as if PUD with PPI IV and can convert tomorrow if stable to po bid. Can resume diet with clears for now and if remains stable in am advance to her usual solid diet. Given her dense dementia would treat conservatively and not do EGD unless forced to. Would be doing EGD for therapeutic benefit and not diagnostic. If she has a cancer would not treat that. acute blood loss anemia--slight drop over baseline but stable last 24 hours. Follow and transfuse prn. History of Present Illness Reason for Consultation: abd pain, possible UGI bleeding Requesting Physician: Dr Jerome Viveros Attending Physician: Jerome Viveros MD History of Present Illness cc unobtainable from patient--she is demented and does not answer questions. History from chart and nursing. HPI Pt seen by out group 10/2018 for anorexia, diarrhea, dilated bile duct. She ultimately was noted to be obstipated and improved with conservative care. This admit she apparently had mental status changes, abd pain relayed from patient to son, and vomiting. CT a/p dilated bile duct 9 mm, gallstones, divertculosis, fluid filled bowel loops. Her med list includes ASA and Celecoxib and omeprazole and Fe. Baseline Hgb 11.3 on 02/05/20 and on admit 11.8 and and went as low ast 10.4 but 10.6 this am. Tarry stool reported yesterday 04/20 at 0400 heme positive but no stools since. She has been NPO and on Protonix IV bid since tarry stool. LFTS normal. Allergies Allergy/AdvReac Type Severity Reaction Status Date / Time ertapenem AdvReac Severe seizures Unverified 04/19/20 14:42 enalapril AdvReac Intermediate Cough Verified 04/19/20 14:42 escitalopram AdvReac Intermediate Hallucinati Verified 04/19/20 14:42 ons Home Medications Medication Instructions Recorded Confirmed Type cholecalciferol (vitamin D3) 2,000 units PO HS 04/04/18 04/19/20 History [Vitamin D3] thiamine HCl (vitamin B1) [Vitamin 250 mg PO QAM 10/21/18 04/19/20 History B-1] cyanocobalamin (vitamin B-12) 5,000 mcg PO QAM 07/20/19 04/19/20 History [Vitamin B-12] folic acid 0.8 mg PO QAM 07/20/19 04/19/20 History diclofenac sodium 1 % topical gel 2 gm TOP QID PRN #100 gm 08/07/19 04/19/20 Rx polyethylene glycol 3350 [Miralax] 17 g PO BID PRN 09/19/19 04/19/20 History Saccharomyces boulardii 250 mg PO QAM 10/04/19 04/19/20 History docusate sodium 100 mg PO QAM 10/04/19 04/19/20 History nystatin 1 applic TOPICAL TID PRN 10/04/19 04/19/20 History ferrous sulfate 325 mg PO BIDM 30 Days #60 tab 10/09/19 04/19/20 Rx acetaminophen [Tylenol Extra 500 mg PO BID 11/13/19 04/19/20 History Strength] aspirin 81 mg PO QAM 11/13/19 04/19/20 History lamotrigine 25 mg tablet 25 mg PO BID #60 tab 12/13/19 04/19/20 Rx celecoxib 100 mg PO QAM 01/27/20 04/19/20 History metoprolol tartrate 25 mg PO QAM 01/27/20 04/19/20 History risperidone 0.5 mg PO BID 01/27/20 04/19/20 History nystatin 100,000 unit/mL oral 5 ml PO Q6H 7 Days #140 ml 02/05/20 04/19/20 Rx suspension atorvastatin 10 mg tablet 10 mg PO QAM #90 tab 03/08/20 04/19/20 Rx omeprazole magnesium 10 mg oral 20 mg PO QAM ea 03/15/20 04/19/20 History suspension,delayed release levetiracetam 750 mg tablet 750 mg PO BID #60 tab 04/08/20 04/19/20 Rx Myrbetriq 50 mg PO QAM 04/19/20 04/19/20 History famotidine [Pepcid] 20 mg PO QAM 04/19/20 04/19/20 History methenamine hippurate 1 g PO QAM 04/19/20 04/19/20 History Patient History Medical History Acute dehydration Acute UTI (urinary tract infection) Altered mental status Anxiety Aortic stenosis Bacteremia Catheter-associated urinary tract infection Catheter-associated urinary tract infection Cerumen impaction Chest pain Decubitus ulcer Diabetes Episode of unresponsiveness Fungemia Goals of care, counseling/discussion Heart disease History of cancer of uterus History of gastrointestinal hemorrhage Hypertension Knee pain, bilateral Loss of consciousness Malnourished Postoperative anemia Stroke UTI (urinary tract infection) Surgical History H/O aortic valve replacement H/O: hysterectomy History of colonoscopy History of cystoscopy with Cystolitholapaxy History of endoscopic gastrointestinal surgery 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 S/P cataract surgery S/P hip replacement S/P tubal ligation Family History Father Myocardial infarction Hearing loss Stroke Mother Myocardial infarction Diabetes Stroke Rheumatoid arthritis Hearing loss Hypertension Family/Other Cancer Denies family history of Ovarian cancer Prostate cancer No family history of adverse response to anesthesia Breast cancer Colorectal cancer Social History Smoking Status: Never smoker Second Hand Exposure: No; Hx Alcohol Use: No Hx Substance Use: No Preferred Language: Albanian Communication Ability: Impaired Camp Tender Required: No Beliefs That Will Affect Care: None marital status: / Current Living Situation: Family Current Living Situation Comment: lives with two daughters current occupational status: retired How many Children do You have: 5 Feels Safe at Home: Yes during the past year weight has: remained stable Seatbelt Use: always Assistive Devices: Denture - Upper and Denture - Lower Review of Systems Review of Systems: Unobtainable due to cognitive status Physical Exam Constitutional: + thin VS as above Eyes: PERRL, conjunctivae normal, anicteric sclerae ENMT: will not open mouth Neck: trachea midline Respiratory: normal respiratory effort, lungs clear to auscultation Cardiovascular: RRR, no murmur, no edema Gastrointestinal (Abdomen): normal bowel sounds, soft, nontender, no hepatosplenomegaly Neurologic: receiver stocker grossly intact, Psychiatric: Orientation: alert she only moans when asked questions. Results & Data ([facility]) Vital Signs (Past 12 Hours) Vital Signs Temp Pulse Resp BP Pulse Ox 04/21/20 07:34 37.3 C 97 H 18 131/56 L 96
--- NOTE | 2020-04-21 17:49 | Hospitalist Progress Note ---
Date of Service April 21, 2020 Assessment & Plan (1) Melena: Black stool overnight on 04/18. - Hgb stable ~ 10.6. - Will start PPI IV BID -> Switch to PO tomorrow. - Advance diet as able (2) Seizure-like activity: Episode of seizure-like activity. - Precautions - Will continue home seizure meds - Discuss with neurology in the AM -> Should we adjust her seizure medication. - Precautions (3) Chronic UTI: Chronic/recurrent UTIs vs. asymptomatic bacteruria while she had a catheter in place. This was removed in 02/2020. - Urine culture from 04/18 growing Yeast. (4) CAD (coronary artery disease): Cannot report any chest pain. - Continue ASA, statin (5) DVT prophylaxis: SCDs - Short admission Admission and Anticipated Discharge Date Admission Date: April 19, 2020 Subjective No response today. Doesn't even look at me or follow instructions. Review of Systems Review of Systems: Unobtainable due to cognitive status Physical Exam Constitutional: no acute distress Eyes: EOM intact bilaterally; no conjunctival abnormality ENMT: external ear and nose normal, oropharynx normal Neck: trachea midline, no thyromegaly normal visual inspection Respiratory: normal respiratory effort, lungs clear to auscultation no respiratory distress Cardiovascular: RRR, no murmur, no edema Gastrointestinal (Abdomen): Inspection/Auscultation: abdomen normal to inspection; abdomen not distended Musculoskeletal: no cyanosis or clubbing, extremities motor strength 5/5 Skin: no rashes, warm and dry Neurologic: moves all extremities and awake Psychiatric: Orientation: alert; + not oriented to person Results & Data Results & Data ([facility]) Vital Signs (Past 12 Hours) Vital Signs Temp Pulse Resp BP BP Pulse Ox 04/21/20 16:06 36.7 C 98 H 20 173/88 H 96 04/21/20 07:34 37.3 C 97 H 18 131/56 L 96 PG Care Time/CCT Total # of Minutes Spent Total Time Spent with Patient: Total time spent is greater than 50% in coordination of care (as documented) at patient's floor/unit and/or counseling patient: Coding Level of Care Code 74837 Subseq Hosp Care Lvl 3 Diagnoses Melena K92.1 Seizure-like activity R56.9 Chronic UTI N39.0 CAD (coronary artery disease) I25.10 DVT prophylaxis Z29.9
[2020-04-21] MEDS: METHENAMINE HIPPURATE 1 GM TAB PO SCH (21:42)
[2020-04-22 07:21] LABS: Basophils # (auto) 0.02 K/uL (0-0.2); Basophils % (auto) 0.3 %; Eosinophils # (auto) 0.19 K/uL (0-0.5); Eosinophils % (auto) 2.7 %; Hematocrit (blood only) 32.6 % (37-47); Hemoglobin 10.5 g/dL (12.0-16.0); Immature Granulocytes # (auto) 0.01 K/uL (0.00-0.02); Immature Granulocytes % (auto) 0.1 %; Lymphocytes # (auto) 1.55 K/uL (1.2-3.4); Lymphocytes % (auto) 22.3 %; Mean Corpuscular Hemoglobin 30.4 pg (25-34); Mean Corpuscular Hgb Conc 32.2 g/dL (32-36); Mean Corpuscular Volume 94.5 fL (80-100); Mean Platelet Volume 10.5 fL (7.4-10.4); Monocytes # (auto) 0.73 K/uL (0.11-0.59); Monocytes % (auto) 10.5 %; Neutrophils # (auto) 4.44 K/uL (1.4-6.5); Neutrophils % (auto) 64.1 %; Platelet Count 122 K/uL (130-400); RDW Coefficient of Variation 12.5 % (11.5-14.5); RDW Standard Deviation 42.5 fL (36.4-46.3); Red Blood Count 3.45 M/uL (4.2-5.4); White Blood Count 6.94 K/uL (4.8-10.8)
--- NOTE | 2020-04-22 07:38 | XRay Report ---
XR hip SANTO 2v w pelvis (5 views) CLINICAL HISTORY: Hip popping right hip pain COMPARISON STUDY: September 2019 FINDINGS: There is a bipolar left hip prosthesis. The joint space in the right hip remains relatively well preserved for age. No acute fractures or dislocations are visualized. The study is rotated. The bones are osteopenic. IMPRESSION: Postsurgical changes of the left. No acute fractures or dislocations identified ACT 112: Negative or not required by law. Electronically signed by: Berny Diallo M.D. 04/22/2020 7:37 AM
--- NOTE | 2020-04-22 07:40 | XRay Report ---
XR KUB/Abdomen 1 view CLINICAL HISTORY: Constipation COMPARISON STUDY: 10/24/2018 FINDINGS: There is no pathologic bowel dilatation. There is scattered stool within the colon. There a re no findings to indicate severe constipation. There are multiple chronic lumbar vertebral body comp ression deformities. IMPRESSION: Nonobstructive bowel gas pattern. ACT 112: Negative or not required by law. Electronically signed by: Berny Diallo M.D. 04/22/2020 7:39 AM
[2020-04-22 08:07] LABS: BUN Creatinine Ratio 31.2 (10-20); Calcium 9.4 mg/dl (8.5-10.1); Creatinine Clr Calc Pharmacy 43.2 ml/min; Est GFR (African American) 69.5; Est GFR (Non-African American) 59.9
[2020-04-22 08:09] LABS: Albumin Globulin Ratio 0.9 (0.9-2); Bilirubin,Total 0.5 mg/dl (0.2-1); Globulin 3.2 gm/dl (2.5-4.0); Total Protein 6.2 gm/dl (6.4-8.2)
--- NOTE | 2020-04-22 08:36 | Gastroenterology Progress Note ---
Date of Service April 22, 2020 Assessment & Plan (1) Melena: Melena - One melenic stool noted and none further per nursing so no evidence of rapid bleeding. ASA and Celecoxib on hold. Currently on Protonix IV BID - recommend convert to po bid. Full liquid diet at bedside - patient sleep ing. Would continue to treat conservatively due to dementia. Acute blood loss anemia--Stable at 10.5/32.6 this morning. Follow and transfuse prn. Admission and Anticipated Discharge Date Admission Date: April 19, 2020 Supervising Physician Co-Signing Physician Notes I have seen and examined the patient. I agree with note above by ALYSSA Holder except as noted below. HPI Pt demented. She groans but does not answer questions. Per nursing only some smears of stool today PE Abdomen pos bs, soft, no guarding nor rebound. A/P melena-- no gross active bleeding. Would sent home on PPI oral and avoid ASA and Celecoxib anemia--stable. DC has been ordered. Will sign off. Subjective No response today. Moves away when shook but does not open eyes. Unable to answer questions. Review of Systems Review of Systems: Unobtainable due to cognitive status Physical Exam Constitutional: + thin VS as above ENMT: will not open mouth Neck: trachea midline Respiratory: normal respiratory effort; no respiratory distress and no labored breathing Cardiovascular: Rate/Rhythm: regular rate and regular rhythm Heart Sounds: no murmur Gastrointestinal (Abdomen): normal bowel sounds, soft, nontender, no hepatosplenomegaly Musculoskeletal: Extremities: extremities normal to inspection Neurologic: sheet manager grossly intact, Psychiatric: she only moans when asked questions. Results & Data ([facility]) Vital Signs (Past 12 Hours) Vital Signs Temp Pulse Resp BP Pulse Ox 04/21/20 23:05 37.2 C 90 20 160/80 H 94 Laboratory Results - last 24 hr 04/22/20 04/22/20 07:00 07:00 WBC 6.94 RBC 3.45 L Hgb 10.5 L Hct 32.6 L MCV 94.5 MCH 30.4 MCHC 32.2 RDW Std Deviation 42.5 RDW Coeff of [place] 12.5 Plt Count 122 L MPV 10.5 H Immature Gran % (Auto) 0.1 Neut % (Auto) 64.1 Lymph % (Auto) 22.3 Bee % (Auto) 10.5 Eos % (Auto) 2.7 Baso % (Auto) 0.3 Neut # (Auto) 4.44 Lymph # (Auto) 1.55 Bee # (Auto) 0.73 H Eos # (Auto) 0.19 Baso # (Auto) 0.02 Immature Gran # (Auto) 0.01 Sodium 147 H Potassium 4.0 Chloride 114 H Carbon Dioxide 28 Anion Gap 5.0 BUN 28 H Creatinine 0.89 Est Cr Clr Drug Dosing 43.2 Est GFR ( Amer) 69.5 Est GFR (Non-Af Amer) 59.9 BUN/Creatinine Ratio 31.2 H Glucose 86 Calcium 9.4 Phosphorus 3.0 Magnesium 2.0 Total Bilirubin 0.5 AST 32 ALT 19 Alkaline Phosphatase 74 Total Protein 6.2 L Albumin 3.0 L Globulin 3.2 Albumin/Globulin Ratio 0.9
[2020-04-22] MEDS: FAMOTIDINE 20 MG TAB PO SCH (09:49)
[2020-04-22] MEDS: ATORVASTATIN 10 MG TAB PO SCH (09:49)
[2020-04-22] MEDS: DOCUSATE SODIUM 100 MG CAP PO SCH (09:49)
[2020-04-22] MEDS: SACCHAROMYCES BOULARDII 250 MG CAP PO SCH (09:49)
[2020-04-22] MEDS: risperiDONE 0.5 MG TABLET PO SCH (09:49)
[2020-04-22] MEDS: PANTOprazole 40 MG in SYRINGE 0 ML IV SCH (09:50)
[2020-04-22] MEDS: lamoTRIgine 25 MG TAB PO SCH (09:51)
[2020-04-22] MEDS: THIAMINE HCL 50 MG TABLET PO SCH (09:51)
[2020-04-22] MEDS: ACETAMINOPHEN 500 MG TAB PO SCH (09:52)
[2020-04-22] MEDS: METOPROLOL TARTRATE 25 MG TAB PO SCH (09:52)
[2020-04-22] MEDS: levETIRAcetam 250 MG in 0.9 % SODIUM CHLORIDE 100 ML IV SCH (09:53)
--- NOTE | 2020-04-22 13:37 | Neurology Consultation ---
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 # Seizure-like activity: on keppra 750mg bid and lamotrigine 25mg bid (for behavior?) - would actually consider decreasing keppra to 500mg bid in the future after she is done being treated for infections (closer to the correct dose for her weight given ongoing poor PO intake). - continue lamictal 25mg bid for behavior modification - she is stable for discharge from a neurological standpoint - follow up in neurology clinic as previously scheduled Thank you for this interesting consult. Plan of care discussed with primary team. Please call or text with questions. (3) Dementia: History of Present Illness Attending Physician: Jerome Viveros MD History of Present Illness Mikaela Easley is an 84 yo woman w/ PMH of anxiety, DM, HTN, h/o GIB, h/o right frontal stroke with residual left sided hemiplegia, seizure, h/o uterine cancer, h/o bacteremia and fungemia, recurrent UTIs, dementia and known aortic stenosis s/p replacement who p/t [facility] with unresponsiveness after a choking event. In the ED, she is afebrile, BP 104/60, heart rate 62, respiratory rate 19, satting 92% room air. Labs show WBC 9.01, hemoglobin 11.8, platelets 154, BUN elevated to 44, creatinine 1.02, sodium/potassium within normal, glucose 129, LFTs within normal, troponin negative, UA showed pyuria and [place] no active bacterial infection, Covid negative. She has recently been treated for ESBL UTI. She has been seen by GI for episode of melena. Recommended to do PPI twice daily and stop aspirin and Celebrex. Would not recommend doing further work-up given significant dementia and unlikely to improve her outcome. On examination, she is unable to give any meaningful history. Was trying to get out of bed and put cream on her left hand. Non-verbal but would grunt. Gross cognitive impairment. Allergies Allergy/AdvReac Type Severity Reaction Status Date / Time ertapenem AdvReac Severe seizures Unverified 04/19/20 14:42 enalapril AdvReac Intermediate Cough Verified 04/19/20 14:42 escitalopram AdvReac Intermediate Hallucinati Verified 04/19/20 14:42 ons Home Medications Medication Instructions Recorded Confirmed Type cholecalciferol (vitamin D3) 2,000 units PO HS 04/04/18 04/19/20 History [Vitamin D3] thiamine HCl (vitamin B1) [Vitamin 250 mg PO QAM 10/21/18 04/19/20 History B-1] cyanocobalamin (vitamin B-12) 5,000 mcg PO QAM 07/20/19 04/19/20 History [Vitamin B-12] folic acid 0.8 mg PO QAM 07/20/19 04/19/20 History diclofenac sodium 1 % topical gel 2 gm TOP QID PRN #100 gm 08/07/19 04/19/20 Rx polyethylene glycol 3350 [Miralax] 17 g PO BID PRN 09/19/19 04/19/20 History Saccharomyces boulardii 250 mg PO QAM 10/04/19 04/19/20 History docusate sodium 100 mg PO QAM 10/04/19 04/19/20 History nystatin 1 applic TOPICAL TID PRN 10/04/19 04/19/20 History ferrous sulfate 325 mg PO BIDM 30 Days #60 tab 10/09/19 04/19/20 Rx acetaminophen [Tylenol Extra 500 mg PO BID 11/13/19 04/19/20 History Strength] aspirin 81 mg PO QAM 11/13/19 04/19/20 History lamotrigine 25 mg tablet 25 mg PO BID #60 tab 12/13/19 04/19/20 Rx celecoxib 100 mg PO QAM 01/27/20 04/19/20 History metoprolol tartrate 25 mg PO QAM 01/27/20 04/19/20 History risperidone 0.5 mg PO BID 01/27/20 04/19/20 History nystatin 100,000 unit/mL oral 5 ml PO Q6H 7 Days #140 ml 02/05/20 04/19/20 Rx suspension atorvastatin 10 mg tablet 10 mg PO QAM #90 tab 03/08/20 04/19/20 Rx omeprazole magnesium 10 mg oral 20 mg PO QAM ea 03/15/20 04/19/20 History suspension,delayed release levetiracetam 750 mg tablet 750 mg PO BID #60 tab 04/08/20 04/19/20 Rx Myrbetriq 50 mg PO QAM 04/19/20 04/19/20 History famotidine [Pepcid] 20 mg PO QAM 04/19/20 04/19/20 History methenamine hippurate 1 g PO QAM 04/19/20 04/19/20 History Patient History Medical History Acute dehydration Acute UTI (urinary tract infection) Altered mental status Anxiety Aortic stenosis Bacteremia Catheter-associated urinary tract infection Catheter-associated urinary tract infection Cerumen impaction Chest pain Decubitus ulcer Diabetes Episode of unresponsiveness Fungemia Goals of care, counseling/discussion Heart disease History of cancer of uterus History of gastrointestinal hemorrhage Hypertension Knee pain, bilateral Loss of consciousness Malnourished Postoperative anemia Stroke UTI (urinary tract infection) Surgical History H/O aortic valve replacement H/O: hysterectomy History of colonoscopy History of cystoscopy with Cystolitholapaxy History of endoscopic gastrointestinal surgery 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 S/P cataract surgery S/P hip replacement S/P tubal ligation Family History Father Myocardial infarction Hearing loss Stroke Mother Myocardial infarction Diabetes Stroke Rheumatoid arthritis Hearing loss Hypertension Family/Other Cancer Denies family history of Ovarian cancer Prostate cancer No family history of adverse response to anesthesia Breast cancer Colorectal cancer Social History Smoking Status: Never smoker Second Hand Exposure: No; Hx Alcohol Use: No Hx Substance Use: No Preferred Language: Maori Communication Ability: Impaired Enrollment Consultant Required: No Beliefs That Will Affect Care: None marital status: / Current Living Situation: Family Current Living Situation Comment: lives with two daughters current occupational status: retired How many Children do You have: 5 Feels Safe at Home: Yes during the past year weight has: remained stable Seatbelt Use: always Assistive Devices: Denture - Upper and Denture - Lower Review of Systems Review of Systems: Unobtainable due to cognitive status Exam (Neuro) Physical Exam: General Exam: GEN: NAD, sitting in bed. HEENT: No conjunctival injection, no rhinorrhea. CV: RRR, no peripheral edema PULM: Nonlabored respirations on room air. Neuro Exam: MS: Awake and Alert. Unable to answer any orientation questions. Non-verbal, grunts. Language impaired to naming, comprehension, repetition. Cognition and memory grossly impaired. Inattentive. No clear neglect. CN: +BTT bilaterally. Unable to visualize fundi on fundoscopic exam. PERRLA OU. EOMI without nystagmus. Facial sensation intact to LT. Facial muscles full and symmetric. Hearing intact to conversation. Unable to evaluate remainder of cranial nerves due to severe dementia. MOTOR: Normal bulk and tone. RUE/RLE antigravity without drift and with purposeful movements. Was able to elevate the left upper extremity nonpurposeful movement but did seem weaker on the right side. Minimal movement from the left lower extremity. REFLEXES: 2+ at biceps, triceps, brachioradialis, 2+ patella and trace Achilles bilaterally. Flexor plantar responses bilaterally. SENSORY: Withdraws or grimaces to noxious stimuli in all extremities. COORDINATION: No dysmetria or ataxia on [id number] on observed movements GAIT: Deferred given physical status Results & Data ([facility]) Vital Signs (Past 12 Hours) Vital Signs Temp Pulse Resp BP Pulse Ox 04/22/20 09:00 36.6 C 73 16 177/81 H 95 PG Care Time/CCT Total # of Minutes Spent Total Time Spent with Patient: Total time spent is greater than 50% in coordination of care (as documented) at patient's floor/unit and/or counseling patient: Coding Level of Care Code 19816 Initial Inpt Care Lvl 3 Diagnoses AMS (altered mental status) R41.82 Altered mental status type: unspecified Seizure-like activity R56.9 Dementia F03.90 Dementia behavioral disturbance: without behavioral disturbance Dementia type: unspecified type (1) Dementia Dementia behavioral disturbance: without behavioral disturbance Dementia type: unspecified type Qualified Code(s): F03.90 - Unspecified dementia without behavioral disturbance (2) AMS (altered mental status) Altered mental status type: unspecified Qualified Code(s): R41.82 - Altered mental status, unspecified
--- NOTE | 2020-04-22 18:25 | Discharge Summary ---
Date of Service April 22, 2020 Admission HPI Per Admitting Provider 84yo M w/ hx of CVA and dementia who presents with possible seizure-like episode. Per the son, she has been more irritable and sometimes tired for the last 3 weeks. He is convinced there is some infection that is causing this issue and has gotten multiple tests from multiple providers. He is convinced that there is a UTI causing this change. He does note that she is at times verbal and responsive, and mostly seems to be dismayed that she frequently seems so uncomfortable. Over the last few weeks has mentioned abdominal pain to him, but is not verbal enough to localize it or describe the symptoms. The main reason he brought her in today was that she was sleeping and kind of "startled" and shook her head back and forth. She then vomited and had an episode of complete unresponsiveness. He was worried about a seizure or aspiration and brought her in. At the time of my interview, she was very restless and grabbing and holding my hand. After about 10 minutes, she fell asleep and was comfortable after that point. Principal Diagnosis Possible seizure Discharge Exam Constitutional no acute distress Eyes EOM intact bilaterally; no conjunctival abnormality ENMT external ear and nose normal, oropharynx normal Neck trachea midline, no thyromegaly normal visual inspection Respiratory normal respiratory effort, lungs clear to auscultation no respiratory distress Cardiovascular RRR, no murmur, no edema Gastrointestinal (Abdomen) Inspection/Auscultation: abdomen normal to inspection; abdomen not distended Musculoskeletal no cyanosis or clubbing, extremities motor strength 5/5 Skin no rashes, warm and dry Neurologic moves all extremities and awake Psychiatric Orientation: alert; + not oriented to person Discharge Data Allergies Allergy/AdvReac Type Severity Reaction Status Date / Time ertapenem AdvReac Severe seizures Unverified 04/19/20 14:42 enalapril AdvReac Intermediate Cough Verified 04/19/20 14:42 escitalopram AdvReac Intermediate Hallucinati Verified 04/19/20 14:42 ons Consultations 04/19/20 16:38 ED Decision to Admit Stat 04/20/20 17:30 Consult Gastroenterology Routine 04/21/20 17:32 Consult Neurology Routine Ordered Studies 04/19/20 12:56 CT abd pelvis IV con only Stat CT chest w con Stat CT head/brain wo con Stat Hospital Course (1) Melena: Black stool overnight on 04/18, but none after that. - Hgb stable ~ 10.6 which was near her baseline. - Started PPI IV BID -> Switched to PO on discharge. - GI saw the patient on 04/21; no EGD planned. Hold ASA and Celebrex on discharge in case this is peptic ulcer disease. (2) Constipated: Son reported issues with constipation and having to manually disimpact the patient. - Iron is poorly absorbed, and I do not think she's deriving benefit from BID dosing. Encouraged a switch to every OTHER day iron which maximizes absorption and reduces GI side effects. Will trial this lower dosing to see if this improves bowel habits. (3) Seizure-like activity: Episode of seizure-like activity prior to presentation. - Seen by neurology on 04/22 -> Lowered Keppra to 500 mg PO BID. This may help reduce her irritability as Keppra can cause mood issues in older patients. (4) Chronic UTI: Chronic/recurrent UTIs vs. asymptomatic bacteruria while she had a catheter in place. This was removed in 02/2020. - Urine culture from 04/18 growing Yeast. - No abx needed. (5) CAD (coronary artery disease): Cannot report any chest pain. - Continue statin (6) DVT prophylaxis: SCDs - Short admission Total Time Total Time Spent Total Time Spent (In Minutes): 35 Discharge Plan Discharge Items Patient Disposition: Home - Home Health Services Reason For Visit: AMS Discharge Diagnosis: Possible seizure, unresponsive episode Activity: Resume your previous activity Non-emergency contact: Primary Care Provider Call non-emergency contact if: your symptoms worsen Follow-up/Referrals: Aurora Estrada MD [Primary Care Provider] - Diet: Heart Healthy Addtl Attending Provider Instructions: Ms. Easley was admitted for an unresponsive episode that was concerning for seizure. While she was tired and slept much of the time in the hospital, we did not see any seizure-like activity. By the day of discharge, she was more alert and able to eat and drink and take her medications. We had the neurologist see her and adjust her seizure medications. We are dropping her Keppra down to 500 mg twice a day which may reduce her irritability. We also had the GI doctor see her who felt that stopping the aspirin and celecoxib might help her stomach feel better. In addition, he asked that we start an acid jovanny twice a day instead of once a day. We did x-rays of her hip, and we did not see any dislocation or fracture of the artificial joint. Finally, to help with her digestive issues, I recommend lowering her iron dosing to once every OTHER day instead of twice a daily. When someone takes that much iron, it does not absorb much, and could be causing further stomach upset and constipation. Pending Studies at Discharge: No Stand-Alone Forms: My [facility], Smoking Cessation Medications and DC Order Prescriptions: New pantoprazole 40 mg tablet,delayed release (DR/EC) 40 mg PO BID Qty: 60 RF: 0 Continued diclofenac sodium [Voltaren] 1 % gel 2 gm TOP QID PRN (Reason: JOINT PAIN) Qty: 100 RF: 0 atorvastatin [Lipitor] 10 mg tablet 10 mg PO QAM Qty: 90 RF: 3 levetiracetam 750 mg tablet 750 mg PO BID Qty: 60 RF: 0 lamotrigine [Lamictal] 25 mg tablet 25 mg PO BID Qty: 60 RF: 2 nystatin 100,000 unit/mL suspension 5 ml PO Q6H 7 Days Qty: 140 RF: 0 cholecalciferol (vitamin D3) [Vitamin D3] 2,000 unit Capsule 2,000 units PO HS RF: 0 thiamine HCl (vitamin B1) [Vitamin B-1] 250 mg Tablet 250 mg PO QAM RF: 0 polyethylene glycol 3350 [Miralax] 17 gram powder in packet 17 g PO BID PRN (Reason: Constipation) RF: 0 risperidone 0.5 mg tablet 0.5 mg PO BID RF: 0 metoprolol tartrate 25 mg tablet 25 mg PO QAM RF: 0 folic acid 800 mcg Tablet 0.8 mg PO QAM RF: 0 cyanocobalamin (vitamin B-12) [Vitamin B-12] 5,000 mcg Tablet, Sublingual 5,000 mcg PO QAM RF: 0 docusate sodium 100 mg Tablet 100 mg PO QAM RF: 0 Saccharomyces boulardii 250 mg Capsule 250 mg PO QAM RF: 0 nystatin 100,000 unit/gram Powder 1 applic TOPICAL TID PRN (Reason: .) RF: 0 acetaminophen [Tylenol Extra Strength] 500 mg Tablet 500 mg PO BID RF: 0 methenamine hippurate 1 gram tablet 1 g PO QAM RF: 0 famotidine [Pepcid] 20 mg tablet 20 mg PO QAM RF: 0 Myrbetriq 50 mg tablet extended release 24 hr 50 mg PO QAM RF: 0 Changed ferrous sulfate 325 mg (65 mg iron) Tablet,Delayed Release (Dr/Ec) See Rx Instructions .ROUTE .COMPLEX 30 Days Qty: 60 RF: 3 Discontinued celecoxib 100 mg capsule 100 mg PO QAM RF: 0 aspirin 81 mg Tablet,Delayed Release (Dr/Ec) 81 mg PO QAM RF: 0 Discharge Orders: Discharge Order (Routine); Ordered 04/22/20 Ordered By: Jerome Viveros Admission Data Admit Date/Time: 04/19/20 17:49 Attending Provider: Jerome Viveros Admit Provider: Jerome Viveros Primary Care Provider: Aurora Estrada V. Other Providers: Jerome Viveros ; Roberth Robison Christina R. Other Interventions: Discharge Summary Assessment (RN) Last Done: 04/22/20 15:15 Coding Level of Care Code D/C Day Management >30 mins Diagnoses Melena K92.1 Constipated K59.00 Seizure-like activity R56.9 Chronic UTI N39.0 CAD (coronary artery disease) I25.10 DVT prophylaxis Z29.9
== END 2020-04-22 16:40 | disposition home health service (06) ==
LOC: ED 11:44 → 2W 11:44